=== PATIENT | male | born 1965 | race Caucasian/White ===

== ENCOUNTER 2020-09-19 15:34 | Outpatient (REF) | payer MEDICAID, SELFPAY | END 2020-09-19 15:35 | disposition home or self-care (01) | LOC: HO.LNP 15:34 | PROVIDERS: Visit Provider Surgery | DX: E11.621 Type 2 diabetes mellitus with foot ulcer (principal) | CPT/HCPCS: 87071; 87077; 87147; 87186; 87205 ==

== ENCOUNTER 2020-10-01 09:24 | Outpatient (REF) | payer MEDICAID, SELFPAY ==
--- NOTE | 2020-10-01 | PFT_ITS ---
INDICATION: Shortness of breath. SPIROMETRY: The FEV1 to FVC 72% with an FEV1 of 2.55 L, which is 69% predicted, and an FVC of 3.53 L, which is 74% predicted. No significant response to bronchodilators. The patient does have significant small airways disease. LUNG VOLUMES: Total lung capacity 104% predicted with a residual volume of 167% predicted, and an expiratory reserve volume of 30% predicted. DIFFUSION CAPACITY: DLCO 86% predicted. COMPARISONS: None. INTERPRETATION: There appears to be reversible obstructive ventilatory defect consistent with diagnosis of asthma. The patient also has significant small airways disease, which may be also due to underlying asthma. There is a moderate decrease in maximum voluntary ventilation secondary to deconditioning and also worsening dynamic inspiratory capacity. Lung volumes do demonstrate significant air trapping due to the small airways disease and the obstructive airways. The patient also has a decrease in the expiratory reserve volume secondary to an elevated BMI. Diffusion capacity is within normal limits. At this point, the patient needs to be aggressively treated for asthma. Pulmonary consultation may be warranted. MD SEVERIANO Hartley/SUSANNA / [phone]
== END 2020-10-01 09:25 | disposition home or self-care (01) ==
LOC: HO.RESP 09:24
PROVIDERS: PCP Internal Medicine; Visit Provider Internal Medicine
DX: R06.02 Shortness of breath (principal)
CPT/HCPCS: 94060; 94727; 94729

== ENCOUNTER 2020-11-14 10:02 | Outpatient (REF) | payer MEDICAID, SELFPAY ==
--- NOTE | ~2020-11-14 | XR_ITS ---
EXAMINATION: XR KNEE, RIGHT XR FOOT, RIGHT CLINICAL INFORMATION: Right knee pain with limited range of motion. Right foot wound. COMPARISON: Right knee radiographs dated 05/11/2019. Right ankle radiographs dated 05/11/2019. TECHNIQUE: AP, tunnel, lateral, and sunrise views of the right knee. AP, lateral, and oblique views of the right foot. FINDINGS: RIGHT KNEE: No acute fracture or dislocation. No joint space narrowing. Tiny patellofemoral marginal osteophytes, unchanged. No lytic or blastic osseous lesion. No abnormal soft tissue calcification. No significant joint effusion. RIGHT FOOT: Soft tissue wound with associated dressing overlying the lateral aspect of the 5th metatarsophalangeal joint. No soft tissue calcification or radiopaque foreign body. Deformity of the 5th proximal phalanx, likely representing a remote fracture. No acute fracture or dislocation. Mild joint space narrowing with small marginal osteophytes at the 1st metatarsophalangeal joint. Plantar calcaneal spur. Degenerative spurring at the dorsal aspect of the talar head. Probable bone island redemonstrated within the distal tibia. XR/XR foot RT min 3V IMPRESSION: Right knee: Mild patellofemoral degenerative arthritis, unchanged. Right foot: Soft tissue wound over the lateral aspect of the 5th metatarsophalangeal joint without soft tissue calcification or radiopaque foreign body. No adjacent osseous erosion or periosteal reaction. Deformity of the 5th proximal phalanx, likely representing a remote fracture. Mild degenerative arthritis at the 1st metatarsophalangeal joint. Plantar calcaneal spur.
--- NOTE | ~2020-11-14 | XR_ITS ---
EXAMINATION: XR KNEE, RIGHT XR FOOT, RIGHT CLINICAL INFORMATION: Right knee pain with limited range of motion. Right foot wound. COMPARISON: Right knee radiographs dated 05/11/2019. Right ankle radiographs dated 05/11/2019. TECHNIQUE: AP, tunnel, lateral, and sunrise views of the right knee. AP, lateral, and oblique views of the right foot. FINDINGS: RIGHT KNEE: No acute fracture or dislocation. No joint space narrowing. Tiny patellofemoral marginal osteophytes, unchanged. No lytic or blastic osseous lesion. No abnormal soft tissue calcification. No significant joint effusion. RIGHT FOOT: Soft tissue wound with associated dressing overlying the lateral aspect of the 5th metatarsophalangeal joint. No soft tissue calcification or radiopaque foreign body. Deformity of the 5th proximal phalanx, likely representing a remote fracture. No acute fracture or dislocation. Mild joint space narrowing with small marginal osteophytes at the 1st metatarsophalangeal joint. Plantar calcaneal spur. Degenerative spurring at the dorsal aspect of the talar head. Probable bone island redemonstrated within the distal tibia. XR/XR knee RT 4V IMPRESSION: Right knee: Mild patellofemoral degenerative arthritis, unchanged. Right foot: Soft tissue wound over the lateral aspect of the 5th metatarsophalangeal joint without soft tissue calcification or radiopaque foreign body. No adjacent osseous erosion or periosteal reaction. Deformity of the 5th proximal phalanx, likely representing a remote fracture. Mild degenerative arthritis at the 1st metatarsophalangeal joint. Plantar calcaneal spur.
== END 2020-11-14 10:03 | disposition home or self-care (01) ==
LOC: HO.XRAY 10:02
PROVIDERS: PCP Internal Medicine; Visit Provider Surgery
DX: M25.561 Pain in right knee (principal); S90.921D Unspecified superficial injury of right foot, subsequent encounter
CPT/HCPCS: 73564; 73630

== ENCOUNTER 2020-11-28 08:32 | Outpatient (REF) | payer MEDICAID, SELFPAY ==
[2020-11-28 09:00] LABS: Hematocrit 42.3 % (42-52); Hemoglobin 14.8 g/dl (14.0-18.0); Mean Corpuscular Hemoglobin 32.6 pg (27.0-33.0); Mean Corpuscular Volume 93.2 fL (80-98); Mean Platelet Volume 10.7 fL (9.4-12.4); Platelet Count 208 X10*3/uL (160-400); Red Blood Count 4.54 X10*6/uL (4.60-5.80); Red Cell Distribution Width 11.8 % (11.0-16.0); White Blood Count 7.9 X10*3/uL (4.8-10.8)
[2020-11-28 09:13] LABS: Estimated Average Glucose 235 mg/dL; Hemoglobin A1c % 9.8 %
[2020-11-28 10:40] LABS: Thyroid Stimulating Hormone 1.95 uIU/mL (0.32-4.0)
[2020-11-28 10:42] LABS: Creatinine Urine 98.19 mg/dL; Microalbum/Creatinine Ratio Ur 36.6 ug/mg cr
[2020-11-28 10:51] LABS: Alanine Aminotransferase 18 U/L (0-40); Albumin Level 4.2 g/dL (3.5-5.0); Alkaline Phosphatase 103 U/L (39-117); Anion Gap 15 (12-20); Aspartate Amino Transferase 13 U/L (5-37); Bilirubin Total 0.4 mg/dL (0.0-1.0); Blood Urea Nitrogen 14 mg/dL (9-16); Calcium 9.2 mg/dL (8.4-10.2); Carbon Dioxide 28 mmol/L (22-29); Chloride 98 mmol/L (96-108); Cholesterol 169 mg/dL; Estimated Glomerular Filt Rate > 60; Glucose Random 311 mg/dL (60-115); HDL Cholesterol 35 mg/dL; LDL Cholesterol Calculated 111 mg/dl; Potassium 4.7 mmol/L (3.3-5.1); Sodium 136 mmol/L (135-145); Total Protein 7.3 g/dL (6.5-8.0); Triglycerides 118 mg/dL
== END 2020-11-28 08:33 | disposition home or self-care (01) ==
LOC: HO.LAB 08:32
PROVIDERS: PCP Internal Medicine; Visit Provider Internal Medicine
DX: E11.65 Type 2 diabetes mellitus with hyperglycemia (principal); R06.02 Shortness of breath
CPT/HCPCS: 36415; 80053; 80061; 82043; 83036; 84443; 85027

== ENCOUNTER 2021-05-12 12:07 | Emergency (ER) | payer MEDICAID, SELFPAY ==
--- NOTE | ~2021-05-12 | US_ITS ---
EXAMINATION: US VENOUS ULTRASOUND WITH DOPPLER LOWER EXTREMITY, RIGHT CLINICAL INFORMATION: Right upper thigh rash. Pain right leg. COMPARISON: None TECHNIQUE: Ultrasound of the deep veins is performed from the hip to the calf with compression sonography and color and pulse Doppler assessment. Spectral analysis with color-flow imaging is performed. FINDINGS: There is normal venous compression and respiratory variation and augmented flow. The visualized common femoral vein, superficial femoral vein, profunda femoral vein, popliteal vein, and the trifurcation region shows no evidence of deep venous thrombosis. There is no significant popliteal fossa cyst. The peroneal and posterior tibial veins were limited in visualization. There are multiple lymph nodes are right groin with the largest lymph node measuring 3.7 x 1.3 x 4.4 cm. Patient has mild skin redness mid and distal medial thigh. History of cellulitis. If the patient's symptoms persist, followup ultrasound in 5 days 7 days might be of value to exclude proximal propagation from a non-visualized calf vein. US/US venous duplex LE RT IMPRESSION: No DVT demonstrated in the right lower extremity. Small lymph nodes in the right groin area.
[2021-05-12 12:23] VITALS: BP 134/80; BP 156/88; PULSE 100; PULSE 88; RESP 16; TEMP 35.9; O2SAT 94; O2SAT 95; BMI 36.6
--- NOTE | 2021-05-12 12:44 | ED_ITS ---
HPI - General Adult General Chief complaint: Extremity Injury, Lower Stated complaint: right upper thigh rash Time Seen by Provider: 05/12/21 12:23 Source: patient Mode of arrival: EMS Limitations: no limitations History of Present Illness HPI narrative: 65-year-old male past medical history of insulin-dependent diabetes, hypertension, hyperlipidemia, cellulitis, asthma, with nonhealing wound ulcers who is followed by the wound clinic weekly, presents for right thigh redness and swelling that started 2 days ago. Patient reports he had a similar rash on his right lower calf last week, for which he was put on a moxicillin and the rash resolved. States the redness on his right thigh looks like the cellulitis he had on his right calf. Patient had some amoxicillin left over from prior treatment of cellulitis, he took two 1000 mg amoxicillin yesterday, and states the rash is less painful today, and less hard to the touch today. Patient states his visiting nurse today wanted him seen in the emergency room for an ultrasound for DVT rule out in right leg. Patient has had no fevers, no shortness of breath, chest pain, no pleuritic pain, no nausea, vomiting, or abdominal pain. Patient states that he has chronically right calf swelling, and that his right calf is larger in circumference than his left calf chronically. . Onset (ago): day(s) (2) Location: lower extremity Radiation: non-radiation Severity: moderate Pain Consistency: constant Relieving factors: medication Associated symptoms: denies other symptoms Treatments prior to arrival: other (antibiotics from home) Related Data Previous Rx's Medication Instructions Recorded cephalexin 500 mg capsule 500 mg PO QID 10 Days #40 cap 05/12/21 Allergies Allergy/AdvReac Type Severity Reaction Status Date / Time bee stings Allergy Unknown Uncoded 05/30/19 00:00 Erythromycin Allergy Unknown Uncoded 05/30/19 00:00 IVP dye Allergy Unknown Uncoded 05/30/19 00:00 seasonal Allergy Unknown Uncoded 05/30/19 00:00 Review of Systems Constitutional: Constitutional: Denies body ache(s), Denies chills, Reports excessive sweating, Denies fatigue, Denies fever(s), Denies weakness and Denies weight gain Eyes: Eyes: Denies blurry vision and Denies eye pain ENT: Denies vertigo and Denies dizziness Cardiovascular: Cardiovascular: Denies chest pain, Denies syncope, Denies pedal edema, Denies claudication, Reports leg edema, Denies lightheadedness, Denies palpitations, Denies dyspnea, Denies dyspnea on exertion and Denies orthopnea Respiratory: Respiratory: Denies chest congestion, Denies cough, Denies dyspnea and Denies dyspnea on exertion Gastrointestinal: Gastrointestinal: Denies abdominal pain, Denies melena, Denies hematochezia, Denies coffee ground emesis, Denies constipation, Denies diarrhea, Denies nausea and Denies vomiting Musculoskeletal: Musculoskeletal: Denies back pain, Denies muscle cramps, Denies muscle weakness, Denies numbness and Denies tingling Integumentary/Breasts: Skin/Breast: Reports rash and Reports skin pain Neurologic: Denies vertigo, Denies dizziness, Denies syncope, Denies numbness, Denies radicular pain, Denies Sensory deficit (Neuro), Denies tingling and Denies weakness Psychiatric: Psychiatric: Denies anxiety and Denies depression Endocrine: Endocrine: Reports excessive sweating, Denies fatigue, Denies heat intolerance, Denies polyphagia, Denies polydipsia and Denies palpitations [facility], [facility] Past Medical History Medical History Asthma Cellulitis High cholesterol HTN (hypertension) IDDM (insulin dependent diabetes mellitus) Kidney stones Surgical History (Updated 05/12/21 @ 12:29 by Lisa Conteh) History of lithotripsy Social History Social History Advance Directives: No Advance Directives Information Provided: No Physical Exam Vital Signs: Vital Signs: Last Vital Signs Temp 96.6 F L 05/12/21 12:23 Pulse 88 05/12/21 12:23 Resp 16 05/12/21 12:23 BP 134/80 05/12/21 12:23 Pulse Ox 95 05/12/21 12:23 Body Mass Index 36.6 Const: General: no acute distress, alert, awake and ill appearing chronically Nutritional Appearance: obese morbidly obese Orientation/consciousness: patient oriented x3 Limitations: no limitations HENMT: Head: Yes normal to inspection and Yes atraumatic Eyes: Conjunctivae: conjunctivae normal Sclerae: sclerae normal Pupils: Equal, round and reactive pupils present EOM: EOMs intact bilaterally Neck: Neck: Yes full ROM, Yes no meningeal signs, Yes trachea midline and Yes supple Resp: Effort & Inspection: normal respiratory effort, able to speak in complete sentences, no audible wheezes and no cough Auscultation: clear to auscultation bilaterally, no crackles, no rales, no rhonchi and no wheezes Cardio: Rate: regular rate Rhythm: regular rhythm Heart sounds: S1 normal heart sound present and S2 normal heart sound present Skin: General skin exam: induration Rashes: rashes noted maculopapular rash right proximal upper leg Neuro: General: patient oriented x3, tone normal, moves all extremities, no meningeal signs and no focal motor deficits Cranial nerves: Yes Equal, round and reactive pupils present Motor exam (neuro): 5/5 motor strength present throughout Sensory Exam: No Sensory deficit (Neuro) Extrem: Other: Patient has stockinet socks on his calves and dressed wounds on his heels on bilateral lower extremities. Hemosiderin deposits bilateral calves and into right and left thighs. There is a confluent maculopapular rash on patient's medial right thigh measuring 17 cm by 20 cm. It is well demarcated, and is non-blanching. Mildly indurated, but all of pt's leg is mildly indurated. Mild warmth, not hot. Right calf measures 44.5 cm in circumference, left calf measures 43 cm in circumference. General: Yes full ROM, No calf tenderness and No edema Psych: Appearance: disheveled Affect: Animated affect present Attitude: cooperative Course Course Course Narrative: Pt's temporal temperature was 96.8F, but his oral temperature is 98.8F. Pt does not have SIRS. This is a 55-year-old male is insulin-dependent diabetic who has recently cellulitis right calf now presents for rash right medial thigh. Patient is up by wound clinic weekly, and presents with dressed diabetic wounds with stockingnet dressings on his bilateral calves There is a confluent maculopapular rash on patient's medial right thigh measuring 17 cm by 20 cm. It is well demarcated, and is non-blanching. Mildly indurated, but all of pt's leg is mildly indurated. Mild warmth, not hot. Right calf measures 44.5 cm in circumference, left calf measures 43 cm in circumference. Ultrasound shows no DVT. Will treat patient with cephalexin, family service counselor follow-up with PCP in 3 days Discharge Plan Discharge Clinical Impression: Cellulitis Qualifiers: Site of cellulitis: extremity Site of cellulitis of extremity: lower extremity Laterality: right Qualified Code(s): L03.115 - Cellulitis of right lower limb Patient Disposition: Home, Self-Care Instructions: Cellulitis (ED) Additional Instructions: Please take your Keflex as prescribed. Please keep your wound care appointment for . Please call your PCP and make a follow-up appointment to have your cellulitis checked on . Please return to the emergency room if you have fevers, nausea or vomiting, worsening pain, or any other new or concerning symptoms Prescriptions: New cephalexin 500 mg capsule 500 mg PO QID 10 Days Qty: 40 RF: 0 Interventions: ED Discharge Assessment Last Done: 05/12/21 15:09 Discharge Date/Time: 05/12/21 15:12
[2021-05-12] MEDS: cephALEXin 500 MG CAPSULE PO (15:02)
== END 2021-05-12 15:12 | disposition home or self-care (01) ==
PROVIDERS: Emergency Provider Emergency Medicine; PCP Internal Medicine
DX: L03.115 Cellulitis of right lower limb (principal); R60.0 Localized edema; E11.9 Type 2 diabetes mellitus without complications; I10 Essential (primary) hypertension; Z79.4 Long term (current) use of insulin; Z79.899 Other long term (current) drug therapy
CPT/HCPCS: 93971; 99283; 99284

== ENCOUNTER 2022-01-01 11:37 | Emergency (ER) | payer MEDICAID, SELFPAY ==
--- NOTE | ~2022-01-01 | US_ITS ---
EXAMINATION: US VENOUS ULTRASOUND WITH DOPPLER LOWER EXTREMITY, LEFT CLINICAL INFORMATION: Swelling and pain COMPARISON: None TECHNIQUE: Ultrasound of the deep veins is performed from the hip to the calf with compression sonography and color and pulse Doppler assessment. Spectral analysis with color-flow imaging is performed. FINDINGS: There is normal venous compression and respiratory variation and augmented flow. The visualized common femoral vein, superficial femoral vein, profunda femoral vein, popliteal vein, and the trifurcation region shows no evidence of deep venous thrombosis. There is no significant popliteal fossa cyst. There are small lymph nodes seen in the left groin with largest measuring 3.4 x 1.3 x 2.9 cm. If the patient's symptoms persist, followup ultrasound in 5 days 7 days might be of value to exclude proximal propagation from a non-visualized calf vein. US/US venous duplex LE IMPRESSION: No DVT demonstrated in the left lower extremity. There are small lymph nodes seen in the left groin with the largest measuring 3.4 x 1.3 x 2.9 cm.
[2022-01-01 11:42] VITALS: BP 151/90; PULSE 88; RESP 20; TEMP 36.6; O2SAT 95; BMI 38.5
--- NOTE | 2022-01-01 13:44 | ED.GENADULT ---
HPI - General Adult General Chief complaint: General Medical Stated complaint: Cellulitis Time Seen by Provider: 01/01/22 13:32 Source: patient Mode of arrival: ambulatory Limitations: no limitations History of Present Illness HPI narrative: 56 yo male with history of DM on insulin, HTN, HLD, asthma, chronic LE wounds who presents to the ER from the wound clinic with open wounds to his left lower extremity. Patient states 9 days ago he fell and sustained some new abrasions to the left lower leg. The area started swelling and blistering. He reports the blisters popped yesterday and were draining clear fluid. He states yesterday his entire lower leg was red, hot, swollen and the redness extended to his upper leg. It after the blisters popped the swelling and redness has improved. He has been taking Aleve at home for his pain. He is not currently on antibiotics for cellulitis. He denies any fever or chills. MD complaint: left lower extremity cellulitis Onset (ago): day(s) (9) Location: left and lower extremity Radiation: proximal Severity: moderate Severity scale (1-10): 6 Quality: aching Pain Consistency: constant Relieving factors: immobilization Exacerbating factors: movement Associated symptoms: denies other symptoms Treatments prior to arrival: NSAID Related Data Home Medications Medication Instructions Recorded Confirmed albuterol sulfate 90 mcg/actuation 2 puff PO Q4-6H PRN 01/01/22 01/01/22 aerosol inhaler (ProAir HFA) insulin aspart U-100 100 unit/mL 15 - 18 unit SUBCUT TIDAC 01/01/22 01/01/22 (3 mL) subcutaneous pen insulin glargine 100 unit/mL (3 60 unit SUBCUT BEDTIME 01/01/22 01/01/22 mL) subcutaneous pen (Lantus Solostar U-100 Insulin) lisinopril 10 1 tab PO DAILY 01/01/22 01/01/22 mg-hydrochlorothiazide 12.5 mg tablet omeprazole 20 mg capsule,delayed 1 cap PO DAILY 01/01/22 01/01/22 release simvastatin 40 mg tablet 1 tab PO BEDTIME 01/01/22 01/01/22 Previous Rx's Medication Instructions Recorded cephalexin 500 mg capsule 500 mg PO Q6H 10 Days #40 cap 01/01/22 doxycycline hyclate 100 mg tablet 100 mg PO BID #20 tab 01/01/22 Allergies Allergy/AdvReac Type Severity Reaction Status Date / Time bee stings Allergy Severe Anaphylaxis Uncoded 01/01/22 11:42 IVP dye Allergy Severe Shortness Uncoded 01/01/22 11:42 of Breath Erythromycin Allergy Intermediate Rash Uncoded 01/01/22 11:42 seasonal Allergy Intermediate Nasal Uncoded 01/01/22 11:42 congestion Review of Systems Review of Systems: Constitutional: No Fever, No Chills ENT/Mouth: No sore throat, No Rhinorrhea, No Swallowing Difficulty Eyes: No Eye Pain, No Swelling, No Redness Cardiovascular: No Chest Pain, No SOB, No Orthopnea, + Edema Respiratory: No Cough, No Sputum, No Wheezing, No dyspnea Gastrointestinal: No Nausea, No Vomiting, No Diarrhea, No abdominal Pain, No Hematochezia, No Melena Genitourinary: No Dysuria, No Urinary Frequency, No Hematuria Musculoskeletal: No joint pain, No Myalgias Skin: +Skin Lesions, No rash Neuro: No Weakness, No Numbness, No Dizziness, No Headache Psych: No Anxiety/Panic, No Depression Heme/Lymph: No Bruising, No Lymphadenopathy Endocrine: No Polyuria, No Polydipsia PMFSH Past Medical History Medical History Asthma Cellulitis High cholesterol HTN (hypertension) IDDM (insulin dependent diabetes mellitus) Kidney stones Surgical History History of lithotripsy Social History Social History Advance Directives: No Advance Directives Information Provided: No Physical Exam ED Vital Signs: Vital Signs - 24 hr 01/01/22 11:42 01/01/22 15:23 Temperature 97.8 F 97.9 F Pulse Rate 88 78 Respiratory Rate 20 12 Blood Pressure 151/90 H 111/72 Pulse Oximetry 95 92 BMI result Body Mass Index 38.5 Appearance: Alert. Oriented X3. No acute distress. Eyes: Pupils equal, round and reactive to light. ENT: Pharynx normal. Neck: Normal inspection. Neck supple. CVS: Normal heart rate and rhythm. Pulses normal. Respiratory: No respiratory distress. Breath sounds normal. Abdomen: Obese, Soft and nontender. +BS x4 Skin: Skin warm and dry. Normal skin color. Normal skin turgor. No rashes. Extremities: right lower extremity with 1+ LE and hyperpigmented skin consistent with chronic venous stasis. left lower extremity swollen with 3+ pitting edema, scattered superficial wounds on anterior lower leg with oozing of clear liquid, diffuse erythema and warmth, well demarcated just below the knee. pitting edema extends to upper thigh. Neuro: Oriented X 3. No motor deficit. No sensory deficit. Ambulates with cane. Course Course Course Narrative: 56-year-old diabetic male presenting to the ER with left lower extremity cellulitis. He had recent trauma and superficial wounds to the area that developed bulla and popped yesterday. He was sent in from the wound clinic for concern of infection. His left lower extremity has evidence of cellulitis with superficial wounds. He has no systemic signs of infection including fever or chills. Will check his basic lab workup, inflammatory markers and lower extremity Doppler to rule out DVT. He is not currently on oral antibiotic therapy and would like to avoid admission if possible. Reevaluation(s) Reevaluation #1: No leukocytosis. CRP 5 & ESR 25. Normal lactic. Lower extremity Dopplers negative for DVT. He was given a dose of Rocephin empirically. At this time it is reasonable to discharge patient on both oral doxycycline and Keflex with plan to follow-up in the wound clinic early next week. Wounds were dressed with Xeroform, nonstick dressings, Kerlex and area was marked with skin marker. Return precautions were discussed. Medical Decision Making Lab Data Result diagrams: 01/01/22 14:13 01/01/22 14:13 Labs: Lab Results 01/01/22 01/01/22 01/01/22 Range/Units 14:12 14:12 14:13 WBC 9.4 (4.8-10.8) X10*3/uL RBC 4.24 L (4.60-5.80) X10*6/uL Hgb 14.4 (14.0-18.0) g/dl Hct 41.3 L (42.0-52.0) % MCV 97.4 (80.0-98.0) fL MCH 34.0 H (27.0-33.0) pg MCHC 34.9 (31.0-36.0) g/dl RDW 12.5 (11.0-16.0) % Plt Count 207 (160-400) X10*3/uL MPV 10.5 (9.4-12.4) fL Immature Gran % (Auto) 0.5 H (0.0-0.4) % Neut % (Auto) 66.8 (45-73) % Lymph % (Auto) 16.8 L (20-40) % Randall % (Auto) 11.6 H (2-11) % Eos % (Auto) 3.9 (0-4) % Baso % (Auto) 0.4 (0-2) % Lymph # (Auto) 1.6 (1.2-4.9) X10*3/uL Randall # (Auto) 1.1 (0.1-1.2) X10*3/uL Eos # (Auto) 0.4 (0.0-0.4) X10*3/uL Baso # (Auto) 0.0 (0.0-0.2) X10*3/uL Abs Immat Gran (auto) 0.05 H (0.00-0.03) X10*3/uL Absolute Neuts (auto) 6.3 (2.0-8.3) x10*3/uL Absolute Nucleated RBC 0.000 (0.0-0.012) X10*3/uL Nucleated RBC % (auto) 0.0 (0.0-0.2) /100WBC ESR (0-15) MM/HR PT (9.9-13.0) SEC INR (0.9-1.1) APTT (24.1-38.0) SEC Sodium (135-145) mmol/L Potassium (3.3-5.1) mmol/L Chloride (96-108) mmol/L Carbon Dioxide (22-29) mmol/L Anion Gap (12-20) BUN (9-16) mg/dL Creatinine (0.5-1.4) mg/dL Estim Creat Clear Calc Estimated GFR Random Glucose (60-115) mg/dL Lactic Acid 1.4 (0.5-2.0) mmol/L Calcium (8.4-10.2) mg/dL Magnesium (1.6-2.6) mg/dL Total Bilirubin (0.0-1.0) mg/dL Direct Bilirubin (0.0-0.5) mg/dL AST (5-37) U/L ALT (0-40) U/L Alkaline Phosphatase (39-117) U/L C-Reactive Protein (< or = 0.50) mg/dL Total Protein (6.5-8.0) g/dL Albumin (3.5-5.0) g/dL Urine Color YELLOW Urine Appearance CLEAR Urine pH 6.5 (5.0-8.0) Ur Specific [place] <= 1.005 (1.005-1.025) Urine Protein NEG (NEG-TRACE) MG/DL Urine Glucose (UA) NEG (NEG) MG/DL Urine Ketones NEG (NEG) MG/DL Urine Blood NEG (NEG) Urine Nitrite NEG (NEG) Ur Leukocyte Esterase NEG (NEG) COVID-19 ([facility]) (Negative) COVID-19 Clin Com 01/01/22 01/01/22 01/01/22 Range/Units 14:13 14:13 14:13 WBC (4.8-10.8) X10*3/uL RBC (4.60-5.80) X10*6/uL Hgb (14.0-18.0) g/dl Hct (42.0-52.0) % MCV (80.0-98.0) fL MCH (27.0-33.0) pg MCHC (31.0-36.0) g/dl RDW (11.0-16.0) % Plt Count (160-400) X10*3/uL MPV (9.4-12.4) fL Immature Gran % (Auto) (0.0-0.4) % Neut % (Auto) (45-73) % Lymph % (Auto) (20-40) % Randall % (Auto) (2-11) % Eos % (Auto) (0-4) % Baso % (Auto) (0-2) % Lymph # (Auto) (1.2-4.9) X10*3/uL Randall # (Auto) (0.1-1.2) X10*3/uL Eos # (Auto) (0.0-0.4) X10*3/uL Baso # (Auto) (0.0-0.2) X10*3/uL Abs Immat Gran (auto) (0.00-0.03) X10*3/uL Absolute Neuts (auto) (2.0-8.3) x10*3/uL Absolute Nucleated RBC (0.0-0.012) X10*3/uL Nucleated RBC % (auto) (0.0-0.2) /100WBC ESR 25 H (0-15) MM/HR PT 12.7 (9.9-13.0) SEC INR 1.1 (0.9-1.1) APTT 36.4 (24.1-38.0) SEC Sodium 135 (135-145) mmol/L Potassium 4.2 (3.3-5.1) mmol/L Chloride 97 (96-108) mmol/L Carbon Dioxide 30 H (22-29) mmol/L Anion Gap 12 (12-20) BUN 8 L (9-16) mg/dL Creatinine 0.66 (0.5-1.4) mg/dL Estim Creat Clear Calc 163.5 Estimated GFR > 60 Random Glucose 123 H D (60-115) mg/dL Lactic Acid (0.5-2.0) mmol/L Calcium 9.0 (8.4-10.2) mg/dL Magnesium 1.9 (1.6-2.6) mg/dL Total Bilirubin 0.7 (0.0-1.0) mg/dL Direct Bilirubin 0.4 (0.0-0.5) mg/dL AST 33 D (5-37) U/L ALT 37 (0-40) U/L Alkaline Phosphatase 114 (39-117) U/L C-Reactive Protein 5.38 H (< or = 0.50) mg/dL Total Protein 7.5 (6.5-8.0) g/dL Albumin 3.8 (3.5-5.0) g/dL Urine Color Urine Appearance Urine pH (5.0-8.0) Ur Specific [place] (1.005-1.025) Urine Protein (NEG-TRACE) MG/DL Urine Glucose (UA) (NEG) MG/DL Urine Ketones (NEG) MG/DL Urine Blood (NEG) Urine Nitrite (NEG) Ur Leukocyte Esterase (NEG) COVID-19 ([facility]) (Negative) COVID-19 Clin Com 01/01/22 Range/Units 14:14 WBC (4.8-10.8) X10*3/uL RBC (4.60-5.80) X10*6/uL Hgb (14.0-18.0) g/dl Hct (42.0-52.0) % MCV (80.0-98.0) fL MCH (27.0-33.0) pg MCHC (31.0-36.0) g/dl RDW (11.0-16.0) % Plt Count (160-400) X10*3/uL MPV (9.4-12.4) fL Immature Gran % (Auto) (0.0-0.4) % Neut % (Auto) (45-73) % Lymph % (Auto) (20-40) % Randall % (Auto) (2-11) % Eos % (Auto) (0-4) % Baso % (Auto) (0-2) % Lymph # (Auto) (1.2-4.9) X10*3/uL Randall # (Auto) (0.1-1.2) X10*3/uL Eos # (Auto) (0.0-0.4) X10*3/uL Baso # (Auto) (0.0-0.2) X10*3/uL Abs Immat Gran (auto) (0.00-0.03) X10*3/uL Absolute Neuts (auto) (2.0-8.3) x10*3/uL Absolute Nucleated RBC (0.0-0.012) X10*3/uL Nucleated RBC % (auto) (0.0-0.2) /100WBC ESR (0-15) MM/HR PT (9.9-13.0) SEC INR (0.9-1.1) APTT (24.1-38.0) SEC Sodium (135-145) mmol/L Potassium (3.3-5.1) mmol/L Chloride (96-108) mmol/L Carbon Dioxide (22-29) mmol/L Anion Gap (12-20) BUN (9-16) mg/dL Creatinine (0.5-1.4) mg/dL Estim Creat Clear Calc Estimated GFR Random Glucose (60-115) mg/dL Lactic Acid (0.5-2.0) mmol/L Calcium (8.4-10.2) mg/dL Magnesium (1.6-2.6) mg/dL Total Bilirubin (0.0-1.0) mg/dL Direct Bilirubin (0.0-0.5) mg/dL AST (5-37) U/L ALT (0-40) U/L Alkaline Phosphatase (39-117) U/L C-Reactive Protein (< or = 0.50) mg/dL Total Protein (6.5-8.0) g/dL Albumin (3.5-5.0) g/dL Urine Color Urine Appearance Urine pH (5.0-8.0) Ur Specific [place] (1.005-1.025) Urine Protein (NEG-TRACE) MG/DL Urine Glucose (UA) (NEG) MG/DL Urine Ketones (NEG) MG/DL Urine Blood (NEG) Urine Nitrite (NEG) Ur Leukocyte Esterase (NEG) COVID-19 ([facility]) Negative (Negative) COVID-19 Clin Com See Note Critical Care Time Critical Care Time Critical Care Time: No Discharge Plan Discharge Clinical Impression: Cellulitis Patient Disposition: Home, Self-Care Instructions: Cellulitis (DC) Additional Instructions: Take both of the prescribed antibiotics, complete the entire course. Follow-up with the wound clinic next week. If you develop worsening signs or symptoms of infection including worsening redness, pain, swelling, drainage, development of fevers call your doctor or come back to the ER for further evaluation. Prescriptions: New doxycycline hyclate 100 mg tablet 100 mg PO BID Qty: 20 0RF cephalexin 500 mg capsule 500 mg PO Q6H 10 Days Qty: 40 0RF No Action simvastatin 40 mg tablet 1 tab PO BEDTIME 0RF omeprazole 20 mg capsule,delayed release(DR/EC) 1 cap PO DAILY 0RF lisinopril-hydrochlorothiazide 10-12.5 mg tablet 1 tab PO DAILY 0RF insulin aspart U-100 100 unit/mL (3 mL) insulin pen 15 - 18 unit subcut TIDAC 0RF Lantus Solostar U-100 Insulin 100 unit/mL (3 mL) insulin pen 60 unit subcut BEDTIME 0RF albuterol sulfate [ProAir HFA] 90 mcg/actuation HFA aerosol inhaler 2 puff PO Q4-6H PRN (Reason: Wheezing) 0RF Referrals: [facility] [place] [facility] [Outside] - 2 days ( Left lower extremity cellulitis)
--- NOTE | 2022-01-01 14:11 | PHA.MEDREC ---
Pharmacy Consult ? Medication Reconciliation Pharmacy has completed the medication reconciliation. Patient does not take flovent anymore. He also endorses that he is supposed to be on zocor but thought it was a blood thinner from what he read online and stopped taking it. Thanks Markus
[2022-01-01 14:20] LABS: MANUAL DIFF FLAG NO
[2022-01-01 14:24] LABS: Appearance Urine CLEAR; Color Urine YELLOW; Glucose Urine UA NEG (NEG); Leukocyte Esterase Urine NEG (NEG); Nitrite Urine NEG (NEG); PH 6.5 (5.0-8.0); Specific Gravity - Urine <= 1.005 (1.005-1.025); Urine Blood NEG (NEG); Urine Ketones NEG (NEG); Urine Protein NEG (NEG-TRACE)
[2022-01-01 14:24] LABS: Basophils Percent Auto 0.4 % (0-2); Eosinophils Absolute Auto 0.4 X10*3/uL (0.0-0.4); Eosinophils Percent Auto 3.9 % (0-4); Hematocrit 41.3 % (42.0-52.0); Hemoglobin 14.4 g/dl (14.0-18.0); Imm Gran Abs Auto 0.05 X10*3/uL (0.00-0.03); Imm Gran Pct Auto 0.5 % (0.0-0.4); Lymphocytes Absolute Auto 1.6 X10*3/uL (1.2-4.9); Lymphocytes Percent Auto 16.8 % (20-40); Mean Corpuscular HGB Conc 34.9 g/dl (31.0-36.0); Mean Corpuscular Volume 97.4 fL (80.0-98.0); Mean Platelet Volume 10.5 fL (9.4-12.4); Monocytes Absolute Auto 1.1 X10*3/uL (0.1-1.2); Monocytes Percent Auto 11.6 % (2-11); Neutrophils Absolute Auto 6.3 x10*3/uL (2.0-8.3); Neutrophils Percent Auto 66.8 % (45-73); Platelet Count 207 X10*3/uL (160-400); Red Blood Count 4.24 X10*6/uL (4.60-5.80); Red Cell Distribution Width 12.5 % (11.0-16.0); White Blood Count 9.4 X10*3/uL (4.8-10.8)
[2022-01-01 14:33] LABS: Lactic Acid 1.4 mmol/L (0.5-2.0)
[2022-01-01 14:35] LABS: INTERNATIONAL NORM RATIO 1.1 (0.9-1.1); Prothrombin Time 12.7 SEC (9.9-13.0)
[2022-01-01 14:36] LABS: COVID-19 Test Negative (Negative)
[2022-01-01 14:38] LABS: Partial Thromboplastin Time 36.4 SEC (24.1-38.0)
[2022-01-01 14:44] LABS: Alanine Aminotransferase 37 U/L (0-40); Albumin Level 3.8 g/dL (3.5-5.0); Alkaline Phosphatase 114 U/L (39-117); Anion Gap 12 (12-20); Aspartate Amino Transferase 33 U/L (5-37); Bilirubin Direct 0.4 mg/dL (0.0-0.5); Bilirubin Total 0.7 mg/dL (0.0-1.0); Blood Urea Nitrogen 8 mg/dL (9-16); C Reactive Protein 5.38 mg/dL (< or = 0.50); Carbon Dioxide 30 mmol/L (22-29); Chloride 97 mmol/L (96-108); Creatinine Clr Calc Pharmacy 163.5; Estimated Glomerular Filt Rate > 60; Glucose Random 123 mg/dL (60-115); Magnesium 1.9 mg/dL (1.6-2.6); Potassium 4.2 mmol/L (3.3-5.1); Sodium 135 mmol/L (135-145); Total Protein 7.5 g/dL (6.5-8.0)
[2022-01-01] MEDS: cefTRIAXone sodium 1 GM in 0.9 % Sodium Chloride 50 ML IV (15:04)
[2022-01-01 15:22] LABS: Erythrocyte Sedimentation Rate 25 MM/HR (0-15)
[2022-01-01 15:23] VITALS: BP 111/72; PULSE 78; RESP 12; TEMP 36.6; O2SAT 92
== END 2022-01-01 16:21 | disposition home or self-care (01) ==
PROVIDERS: Physician Assistant; Emergency Provider Emergency Medicine; PCP Internal Medicine
DX: L03.116 Cellulitis of left lower limb (principal); M79.662 Pain in left lower leg; R60.0 Localized edema; S80.922A Unspecified superficial injury of left lower leg, initial encounter; X58.XXXA Exposure to other specified factors, initial encounter; Z20.822 Contact with and (suspected) exposure to COVID-19; I10 Essential (primary) hypertension; E11.9 Type 2 diabetes mellitus without complications; E78.5 Hyperlipidemia, unspecified; Z79.4 Long term (current) use of insulin; Z79.02 Long term (current) use of antithrombotics/antiplatelets; Z79.899 Other long term (current) drug therapy; Y93.9 Activity, unspecified; Y92.9 Unspecified place or not applicable; Y99.9 Unspecified external cause status
CPT/HCPCS: 36415; 80048; 80076; 81003; 83605; 83735; 85025; 85610; 85652; 85730; 86140; 87040; 87635; 93971; 96365; 99283; 99284; J0696

== ENCOUNTER 2022-10-07 15:02 | Inpatient (IN) | payer MEDICAID, SELFPAY ==
--- NOTE | ~2022-10-07 | XR_ITS ---
EXAMINATION: PRE-MRI SCREENING/ORBITS CLINICAL INFORMATION: History of radiopaque foreign body removed from the orbits. Pre-MRI evaluation. COMPARISON: None TECHNIQUE: 3 views FINDINGS: There is no radiopaque foreign body seen in the orbits. Visualized bony orbits, maxillofacial bones appear unremarkable. The paranasal sinuses and mastoid air cells are clear. Patient is near completely edentulous . XR/XR pre mri screening IMPRESSION: No radiopaque foreign body seen in the orbits. .
--- NOTE | ~2022-10-07 | MR_ITS ---
EXAMINATION: MRI FOOT WITHOUT AND WITH CONTRAST, RIGHT CLINICAL INFORMATION: Right foot pain, evaluate for osteomyelitis. COMPARISON: Radiographs 10/07/2022. TECHNIQUE: MRI without and with intravenous administration of 10 mL of Gadavist is performed on the right forefoot. FINDINGS: Skin thickening with subcutaneous edema and enhancement surrounding the great toe compatible with cellulitis. Ulceration at the plantar/distal aspect which approximates the underlying cortex of the tuft of the distal phalanx where there is prominent and diffuse marrow edema and enhancement with corresponding loss of T1 signal intensity compatible with osteomyelitis. No abscess. 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 Cortical irregularity with chronic-appearing erosion involves the lateral aspect of the 5th metatarsal head with intermediate signal of the overlying soft tissues, without suspicious enhancement. No metatarsal stress reaction or fracture. MR/MR foot RT wo/w con IMPRESSION: Soft tissue ulceration at the plantar/distal aspect of the great toe with underlying osteomyelitis of the distal phalanx. No abscess.
--- NOTE | ~2022-10-07 | US_ITS ---
EXAMINATION: NONINVASIVE ASSESSMENT OF THE ARTERIES OF BOTH LOWER EXTREMITIES CLINICAL INFORMATION: Right toe infection. COMPARISON: Arterial duplex 09/06/2019. TECHNIQUE: Segmental ankle pulse volume recording, pressure measurement at the ankle and ankle brachial indices were obtained of the lower extremity arterial system bilaterally. In addition, bilateral lower extremity duplex ultrasound was performed with velocity measurements and waveform analysis in the common femoral arteries, profunda femoris arteries, proximal mid and distal superficial femoral arteries, popliteal arteries and tibial vessels. This study was performed at rest only. FINDINGS: a) AT REST: 1. The ankle-brachial indices are: Right 1.28 and left 1.25. >0.97-1.25 = normal - no significant arterial disease. 0.75-0.96 = mild peripheral arterial disease. 0.5-0.74 = moderate peripheral arterial disease. <0.50 = severe peripheral arterial disease. 2. Segmental pressure at ankle: Normal. 3. PVR waveform at ankle: Normal. 4. Duplex exam. Velocities in cm/sec and phasicity as well as the presence of plaque are reported below. RIGHT LEG: Only minimal atherosclerotic changes are seen with good triphasic flow throughout Common Femoral: 146 Profunda Femoris: 86 Proximal SFA: 91 Mid SFA: 106 Distal SFA: 77 Popliteal: 90 Tibial: 35 LEFT LEG: Only minimal atherosclerotic changes are seen with good triphasic flow throughout Common Femoral: 87 Profunda Femoris: 76 Proximal SFA: 91 Mid SFA: 82 Distal SFA: 82 Popliteal: 76 Tibial: 121 Prominent bilateral groin lymph nodes are seen the largest on the right measuring 4.2 x 1.6 x 4.7 cm. US/US SEAN complete IMPRESSION: No evidence of significant peripheral vascular disease.
--- NOTE | ~2022-10-07 | US_ITS ---
EXAMINATION: NONINVASIVE ASSESSMENT OF THE ARTERIES OF BOTH LOWER EXTREMITIES CLINICAL INFORMATION: Right toe infection. COMPARISON: Arterial duplex 09/06/2019. TECHNIQUE: Segmental ankle pulse volume recording, pressure measurement at the ankle and ankle brachial indices were obtained of the lower extremity arterial system bilaterally. In addition, bilateral lower extremity duplex ultrasound was performed with velocity measurements and waveform analysis in the common femoral arteries, profunda femoris arteries, proximal mid and distal superficial femoral arteries, popliteal arteries and tibial vessels. This study was performed at rest only. FINDINGS: a) AT REST: 1. The ankle-brachial indices are: Right 1.28 and left 1.25. >0.97-1.25 = normal - no significant arterial disease. 0.75-0.96 = mild peripheral arterial disease. 0.5-0.74 = moderate peripheral arterial disease. <0.50 = severe peripheral arterial disease. 2. Segmental pressure at ankle: Normal. 3. PVR waveform at ankle: Normal. 4. Duplex exam. Velocities in cm/sec and phasicity as well as the presence of plaque are reported below. RIGHT LEG: Only minimal atherosclerotic changes are seen with good triphasic flow throughout Common Femoral: 146 Profunda Femoris: 86 Proximal SFA: 91 Mid SFA: 106 Distal SFA: 77 Popliteal: 90 Tibial: 35 LEFT LEG: Only minimal atherosclerotic changes are seen with good triphasic flow throughout Common Femoral: 87 Profunda Femoris: 76 Proximal SFA: 91 Mid SFA: 82 Distal SFA: 82 Popliteal: 76 Tibial: 121 Prominent bilateral groin lymph nodes are seen the largest on the right measuring 4.2 x 1.6 x 4.7 cm. US/US arterial duplex LE BI IMPRESSION: No evidence of significant peripheral vascular disease.
--- NOTE | ~2022-10-07 | XR_ITS ---
EXAMINATION: XR FOOT, RIGHT CLINICAL INFORMATION: Infection great toe. COMPARISON: Right foot radiographs 03/13/2021 TECHNIQUE: Right foot is imaged in 3 views. FINDINGS: There are interval erosive changes involving the head and neck of the fifth metatarsal and base fifth proximal phalanx. There is no gas tracking in the soft tissues. The remainder the bony structures including the great toe show no interval bony destructive process. There are bulky plantar and small posterior calcaneal spurs. Bulky dorsal spurring again seen distal dorsal talus. The subtalar joint is unremarkable. XR/XR foot RT min 3V IMPRESSION: -Erosive changes involving the right 5th metatarsal head and neck and base right 5th proximal phalanx. -No gas tracking in soft tissues. No soft tissue mineralization. Findings may be related to osteomyelitis. Para-articular erosions from occult gouty arthropathy is also a consideration. Clinically correlate.
--- NOTE | 2022-10-07 15:25 | ED.SKABFB ---
HPI - Skin/Abscess/Foreign Bdy General Chief complaint: Extremity Problem <BHUPINDER Mathias - Last Filed: 10/07/22 15:32> Stated complaint: Infection R Big Toe <BHUPINDER Mathias - Last Filed: 10/07/22 15:32> Time Seen by Provider: 10/07/22 23:45 <BHUPINDER Mathias - Last Filed: 10/07/22 15:32> Source: patient <Heron Gibbs MD - Last Filed: 10/08/22 00:14> Mode of arrival: ambulatory <Heron Gibbs MD - Last Filed: 10/08/22 00:14> Limitations: no limitations <Heron Gibbs MD - Last Filed: 10/08/22 00:14> History of Present Illness HPI narrative: 57-year-old male with history of diabetes came in for right big toe worsening infection. was started a week ago on doxycycline by the wound clinic with no improvement and worsening of the infection patient was sent in from the wound clinic for further workup and admission. <Heron Gibbs MD - Last Filed: 10/08/22 00:14> Related Data Home medications: Home Medications Medication Instructions Recorded Confirmed albuterol sulfate 90 mcg/actuation 2 puff PO Q4-6H PRN Wheezing 01/01/22 01/01/22 aerosol inhaler (ProAir HFA) insulin aspart U-100 100 unit/mL 15 - 18 unit subcut TIDAC 01/01/22 01/01/22 (3 mL) subcutaneous pen insulin glargine 100 unit/mL (3 60 unit subcut BEDTIME 01/01/22 01/01/22 mL) subcutaneous pen (Lantus Solostar U-100 Insulin) lisinopril 10 1 tab PO DAILY 01/01/22 01/01/22 mg-hydrochlorothiazide 12.5 mg tablet omeprazole 20 mg capsule,delayed 1 cap PO DAILY 01/01/22 01/01/22 release simvastatin 40 mg tablet 1 tab PO BEDTIME 01/01/22 01/01/22 <BHUPINDER Mathias - Last Filed: 10/07/22 15:32> Allergies/Adverse reactions: Allergies Allergy/AdvReac Type Severity Reaction Status Date / Time bee stings Allergy Severe Anaphylaxis Uncoded 01/01/22 11:42 IVP dye Allergy Severe Shortness Uncoded 01/01/22 11:42 of Breath Erythromycin Allergy Intermediate Rash Uncoded 01/01/22 11:42 seasonal Allergy Intermediate Nasal Uncoded 01/01/22 11:42 congestion <BHUPINDER Mathias - Last Filed: 10/07/22 15:32> Review of Systems Review of Systems: All other systems are reviewed and are negative Constitutional: Reports as per HPI and Reports no additional constitutional complaints Eyes: Reports as per HPI and Reports no additional eye complaints Reports system reviewed and no additional complaints, except as documented Cardiovascular: Reports as per HPI and Reports no additional cardiovascular complaints Respiratory: Reports as per HPI and Reports no additional respiratory complaints Gastrointestinal: Reports as per HPI and Reports no additional gastrointestinal complaints Genitourinary: Reports no additional female genitourinary complaints Musculoskeletal: Reports no additional musculoskeletal complaints Skin/Breast: Reports system reviewed and no additional complaints, except as docu Psychiatric: Reports no additional psychiatric complaints Endocrine: Reports no additional endocrine complaints Hematologic/Lymphatic: Reports no additional hematologic/lymphatic complaints Allergic/Immunologic: Reports no additional allergic/immunologic complaints Reports system reviewed and no additional complaints, except as documented and Reports Abnormal speech present <Heron Gibbs MD - Last Filed: 10/08/22 00:14> [facility] Past Medical History Medical History: Medical History Asthma Cellulitis High cholesterol HTN (hypertension) IDDM (insulin dependent diabetes mellitus) Kidney stones <BHUPINDER Mathias - Last Filed: 10/07/22 15:32> Surgical History: Surgical History History of lithotripsy <BHUPINDER Mathias - Last Filed: 10/07/22 15:32> Social History Social History: Social History Advance Directives: No Advance Directives Information Provided: Yes <BHUPINDER Mathias - Last Filed: 10/07/22 15:32> Physical Exam Vital Signs: Vital Signs: Last Vital Signs Temp 97.9 F 10/07/22 23:45 Pulse 75 10/07/22 23:45 Resp 17 10/07/22 23:45 BP 152/93 H 10/07/22 23:45 Pulse Ox 96 10/07/22 23:45 O2 Del Method 10/07/22 23:45 BMI result Body Mass Index 36.6 <BHUPINDER Mathias - Last Filed: 10/07/22 15:32> Vital Signs: Last Vital Signs Temp 97.9 F 10/07/22 23:45 Pulse 75 10/07/22 23:45 Resp 17 10/07/22 23:45 BP 152/93 H 10/07/22 23:45 Pulse Ox 96 10/07/22 23:45 O2 Del Method 10/07/22 23:45 BMI result Body Mass Index 36.6 vital signs have been reviewed as appeared to be correct. Blood pressure normal. Heart rate normal. Respiration rate normal. Temperature normal. Oxygen saturation normal. <Heron Gibbs MD - Last Filed: 10/08/22 00:14> Appearance: Alert. Oriented X3. No acute distress. Head: Normal external exam. Normocephalic. Atraumatic. No Montoya signs noted. No raccoon eyes noted Eyes: PERRLA. EOMI. Conjunctiva and sclera normal. Eyelids normal. ENT: TM's Normal. Pharynx normal. Uvula midline. Moist mucous membranes. No trismus noted. No drooling noted. No muffled voice noted. Neck: Normal inspection. Neck supple. FROM. No adenopathy. Thyroid Normal. No meningeal signs. No neck mass noted. CVS: Normal heart rate and rhythm. Heart sound normal. No murmurs noted. Pulses normal throughout. Respiratory: No respiratory distress. Painless inspiration. Breath sounds normal. No wheezes/rales/rhonchi noted. Chest nontender. No accessory muscle usage noted or decreased air movement noted. Abdomen: Soft and nontender. Bowel sounds normal in all 4 quadrants. No distention noted. No organomegaly noted. No visible injury noted. Back: No CVA tenderness. Full range of motion noted. Skin: Skin warm and dry. Normal skin color. Normal skin turgor. No rashes/lesions/lacerations noted. Extremities: Right foot exam: Generalized swelling of the right foot slightly redness and hotness, right big toe is swollen with tenderness, there is an ulcerative lesion on the palmar aspect of the big toe, no fluctuation, no drainage. Neuro: Oriented X 3. Cranial nerve exam: II-XII are grossly intact No motor deficit. No sensory deficit. Reflexes normal. <Heron Gibbs MD - Last Filed: 10/08/22 00:14> Course Course Course Narrative: LIZETH--57-year-old male with a past medical history of asthma, cellulitis, HLD, HTN, diabetes, renal stones c/o R great toe swelling, infection, pain, and malodor worsening x1 month, was sent in from wound care. Denies fever, chills Right great toe enlarged/swollen, erythematous with malodor. + open wound/ulcer to plantar aspect of great toe. No crepitus. Labs including lactic/blood cultures, ESR/CRP, x-ray, empiric Zosyn/vancomycin ordered in triage <BHUPINDER Mathias - Last Filed: 10/07/22 15:32> Reevaluation(s) Reevaluation #1: Diabetic with right big toe infection persist despite oral outpatient antibiotic. patient do not meet criteria for severe sepsis or septic shock but the x-ray is concern of bone involvement and osteomyelitis, patient failed p.o. trial antibiotic will admit for IV antibiotic. <Heron Gibbs MD - Last Filed: 10/08/22 00:14> Time: 00:07 <Heron Gibbs MD - Last Filed: 10/08/22 00:14> Medical Decision Making Differential Diagnosis Differential Diagnoses: The differential diagnosis associated with the presentation includes ( Right toe cellulitis, osteomyelitis, abscess.) <Heron Gibbs MD - Last Filed: 10/08/22 00:14> Lab Data MDM Lab Attestation statement: I reviewed the patient's lab results. <Heron Gibbs MD - Last Filed: 10/08/22 00:14> Result Diagrams: : 10/07/22 19:48 10/07/22 19:47 <BHUPINDER Mathias - Last Filed: 10/07/22 15:32> Labs: Lab Results 10/07/22 10/07/22 10/07/22 Range/Units 19:46 19:47 19:47 WBC (4.8-10.8) X10*3/uL RBC (4.60-5.80) X10*6/uL Hgb (14.0-18.0) g/dl Hct (42.0-52.0) % MCV (80.0-98.0) fL MCH (27.0-33.0) pg MCHC (31.0-36.0) g/dl RDW (11.0-16.0) % Plt Count (160-400) X10*3/uL MPV (9.4-12.4) fL Immature Gran % (Auto) (0.0-0.4) % Neut % (Auto) (45-73) % Lymph % (Auto) (20-40) % [place] % (Auto) (2-11) % Eos % (Auto) (0-4) % Baso % (Auto) (0-2) % Lymph # (Auto) (1.2-4.9) X10*3/uL [place] # (Auto) (0.1-1.2) X10*3/uL Eos # (Auto) (0.0-0.4) X10*3/uL Baso # (Auto) (0.0-0.2) X10*3/uL Abs Immat Gran (auto) (0.00-0.03) X10*3/uL Absolute Neuts (auto) (2.0-8.3) x10*3/uL Absolute Nucleated RBC (0.0-0.012) X10*3/uL Nucleated RBC % (auto) (0.0-0.2) /100WBC ESR (0-15) MM/HR Sodium 133 L (135-145) mmol/L Potassium 4.8 (3.3-5.1) mmol/L Chloride 97 (96-108) mmol/L Carbon Dioxide 33 H (22-29) mmol/L Anion Gap 8 L (12-20) BUN 12 (9-16) mg/dL Creatinine 0.76 (0.5-1.4) mg/dL Estim Creat Clear Calc 136.6 Estimated GFR > 60 Random Glucose 241 H (60-115) mg/dL Lactic Acid 1.6 (0.5-2.0) mmol/L Calcium 9.3 (8.4-10.2) mg/dL Magnesium 2.2 (1.6-2.6) mg/dL Total Bilirubin 0.4 (0.0-1.0) mg/dL Direct Bilirubin 0.2 (0.0-0.5) mg/dL AST 12 (5-37) U/L ALT 11 (0-40) U/L Alkaline Phosphatase 112 (39-117) U/L C-Reactive Protein 3.45 H (< or = 0.50) mg/dL B-Natriuretic Peptide (<100) pg/mL Total Protein 8.1 H (6.5-8.0) g/dL Albumin 3.9 (3.5-5.0) g/dL COVID-19 ([facility]) Negative (Negative) COVID-19 Clin Com See Note 10/07/22 10/07/22 10/07/22 Range/Units 19:47 19:48 19:48 WBC 7.2 (4.8-10.8) X10*3/uL RBC 4.39 L (4.60-5.80) X10*6/uL Hgb 13.8 L (14.0-18.0) g/dl Hct 41.8 L (42.0-52.0) % MCV 95.2 (80.0-98.0) fL MCH 31.4 (27.0-33.0) pg MCHC 33.0 (31.0-36.0) g/dl RDW 12.5 (11.0-16.0) % Plt Count 276 D (160-400) X10*3/uL MPV 10.0 (9.4-12.4) fL Immature Gran % (Auto) 0.3 (0.0-0.4) % Neut % (Auto) 58.1 (45-73) % Lymph % (Auto) 27.2 (20-40) % [place] % (Auto) 9.7 (2-11) % Eos % (Auto) 4.0 (0-4) % Baso % (Auto) 0.7 (0-2) % Lymph # (Auto) 2.0 (1.2-4.9) X10*3/uL [place] # (Auto) 0.7 (0.1-1.2) X10*3/uL Eos # (Auto) 0.3 (0.0-0.4) X10*3/uL Baso # (Auto) 0.1 (0.0-0.2) X10*3/uL Abs Immat Gran (auto) 0.02 (0.00-0.03) X10*3/uL Absolute Neuts (auto) 4.2 (2.0-8.3) x10*3/uL Absolute Nucleated RBC 0.000 (0.0-0.012) X10*3/uL Nucleated RBC % (auto) 0.0 (0.0-0.2) /100WBC ESR 44 H (0-15) MM/HR Sodium (135-145) mmol/L Potassium (3.3-5.1) mmol/L Chloride (96-108) mmol/L Carbon Dioxide (22-29) mmol/L Anion Gap (12-20) BUN (9-16) mg/dL Creatinine (0.5-1.4) mg/dL Estim Creat Clear Calc Estimated GFR Random Glucose (60-115) mg/dL Lactic Acid (0.5-2.0) mmol/L Calcium (8.4-10.2) mg/dL Magnesium (1.6-2.6) mg/dL Total Bilirubin (0.0-1.0) mg/dL Direct Bilirubin (0.0-0.5) mg/dL AST (5-37) U/L ALT (0-40) U/L Alkaline Phosphatase (39-117) U/L C-Reactive Protein (< or = 0.50) mg/dL B-Natriuretic Peptide 37 (<100) pg/mL Total Protein (6.5-8.0) g/dL Albumin (3.5-5.0) g/dL COVID-19 ([facility]) (Negative) COVID-19 Clin Com <BHUPINDER Mathias - Last Filed: 10/07/22 15:32> Lab Results 10/07/22 10/07/22 10/07/22 Range/Units 19:46 19:47 19:47 WBC (4.8-10.8) X10*3/uL RBC (4.60-5.80) X10*6/uL Hgb (14.0-18.0) g/dl Hct (42.0-52.0) % MCV (80.0-98.0) fL MCH (27.0-33.0) pg MCHC (31.0-36.0) g/dl RDW (11.0-16.0) % Plt Count (160-400) X10*3/uL MPV (9.4-12.4) fL Immature Gran % (Auto) (0.0-0.4) % Neut % (Auto) (45-73) % Lymph % (Auto) (20-40) % [place] % (Auto) (2-11) % Eos % (Auto) (0-4) % Baso % (Auto) (0-2) % Lymph # (Auto) (1.2-4.9) X10*3/uL [place] # (Auto) (0.1-1.2) X10*3/uL Eos # (Auto) (0.0-0.4) X10*3/uL Baso # (Auto) (0.0-0.2) X10*3/uL Abs Immat Gran (auto) (0.00-0.03) X10*3/uL Absolute Neuts (auto) (2.0-8.3) x10*3/uL Absolute Nucleated RBC (0.0-0.012) X10*3/uL Nucleated RBC % (auto) (0.0-0.2) /100WBC ESR (0-15) MM/HR Sodium 133 L (135-145) mmol/L Potassium 4.8 (3.3-5.1) mmol/L Chloride 97 (96-108) mmol/L Carbon Dioxide 33 H (22-29) mmol/L Anion Gap 8 L (12-20) BUN 12 (9-16) mg/dL Creatinine 0.76 (0.5-1.4) mg/dL Estim Creat Clear Calc 136.6 Estimated GFR > 60 Random Glucose 241 H (60-115) mg/dL Lactic Acid 1.6 (0.5-2.0) mmol/L Calcium 9.3 (8.4-10.2) mg/dL Magnesium 2.2 (1.6-2.6) mg/dL Total Bilirubin 0.4 (0.0-1.0) mg/dL Direct Bilirubin 0.2 (0.0-0.5) mg/dL AST 12 (5-37) U/L ALT 11 (0-40) U/L Alkaline Phosphatase 112 (39-117) U/L C-Reactive Protein 3.45 H (< or = 0.50) mg/dL B-Natriuretic Peptide (<100) pg/mL Total Protein 8.1 H (6.5-8.0) g/dL Albumin 3.9 (3.5-5.0) g/dL COVID-19 ([facility]) Negative (Negative) COVID-19 Clin Com See Note 10/07/22 10/07/22 10/07/22 Range/Units 19:47 19:48 19:48 WBC 7.2 (4.8-10.8) X10*3/uL RBC 4.39 L (4.60-5.80) X10*6/uL Hgb 13.8 L (14.0-18.0) g/dl Hct 41.8 L (42.0-52.0) % MCV 95.2 (80.0-98.0) fL MCH 31.4 (27.0-33.0) pg MCHC 33.0 (31.0-36.0) g/dl RDW 12.5 (11.0-16.0) % Plt Count 276 D (160-400) X10*3/uL MPV 10.0 (9.4-12.4) fL Immature Gran % (Auto) 0.3 (0.0-0.4) % Neut % (Auto) 58.1 (45-73) % Lymph % (Auto) 27.2 (20-40) % [place] % (Auto) 9.7 (2-11) % Eos % (Auto) 4.0 (0-4) % Baso % (Auto) 0.7 (0-2) % Lymph # (Auto) 2.0 (1.2-4.9) X10*3/uL [place] # (Auto) 0.7 (0.1-1.2) X10*3/uL Eos # (Auto) 0.3 (0.0-0.4) X10*3/uL Baso # (Auto) 0.1 (0.0-0.2) X10*3/uL Abs Immat Gran (auto) 0.02 (0.00-0.03) X10*3/uL Absolute Neuts (auto) 4.2 (2.0-8.3) x10*3/uL Absolute Nucleated RBC 0.000 (0.0-0.012) X10*3/uL Nucleated RBC % (auto) 0.0 (0.0-0.2) /100WBC ESR 44 H (0-15) MM/HR Sodium (135-145) mmol/L Potassium (3.3-5.1) mmol/L Chloride (96-108) mmol/L Carbon Dioxide (22-29) mmol/L Anion Gap (12-20) BUN (9-16) mg/dL Creatinine (0.5-1.4) mg/dL Estim Creat Clear Calc Estimated GFR Random Glucose (60-115) mg/dL Lactic Acid (0.5-2.0) mmol/L Calcium (8.4-10.2) mg/dL Magnesium (1.6-2.6) mg/dL Total Bilirubin (0.0-1.0) mg/dL Direct Bilirubin (0.0-0.5) mg/dL AST (5-37) U/L ALT (0-40) U/L Alkaline Phosphatase (39-117) U/L C-Reactive Protein (< or = 0.50) mg/dL B-Natriuretic Peptide 37 (<100) pg/mL Total Protein (6.5-8.0) g/dL Albumin (3.5-5.0) g/dL COVID-19 ([facility]) (Negative) COVID-19 Clin Com <Heron Gibbs MD - Last Filed: 10/08/22 00:14> Independent Interpretation I performed an independent interpretation of an: Plain X-Ray ( Right toe: no osteomyelitis to the great toe, destructive bony change to the 5th metatarsal.) <Heron Gibbs MD - Last Filed: 10/08/22 00:14> Radiology Impression Discussion of test interpretation with radiology: I have reviewed the radiologist's reading. <Heron Gibbs MD - Last Filed: 10/08/22 00:14> Discharge Plan Discharge Clinical Impression: Cellulitis <BHUPINDER Mathias - Last Filed: 10/07/22 15:32> Patient Disposition: Admitted As Inpatient <BHUPINDER Mathias - Last Filed: 10/07/22 15:32> Prescriptions: No Action simvastatin 40 mg tablet 1 tab PO BEDTIME omeprazole 20 mg capsule,delayed release(DR/EC) 1 cap PO DAILY lisinopril-hydrochlorothiazide 10-12.5 mg tablet 1 tab PO DAILY insulin aspart U-100 100 unit/mL (3 mL) insulin pen 15 - 18 unit subcut TIDAC insulin glargine [Lantus Solostar U-100 Insulin] 100 unit/mL (3 mL) insulin pen 60 unit subcut BEDTIME albuterol sulfate [ProAir HFA] 90 mcg/actuation HFA aerosol inhaler 2 puff PO Q4-6H PRN (Reason: Wheezing) <BHUPINDER Mathias - Last Filed: 10/07/22 15:32>
[2022-10-07 15:26] VITALS: BP 150/88; PULSE 89; RESP 18; TEMP 36.8; O2SAT 97; BMI 36.6
[2022-10-07 19:57] LABS: MANUAL DIFF FLAG NO
[2022-10-07 20:00] LABS: Basophils Absolute Auto 0.1 X10*3/uL (0.0-0.2); Basophils Percent Auto 0.7 % (0-2); Eosinophils Absolute Auto 0.3 X10*3/uL (0.0-0.4); Hematocrit 41.8 % (42.0-52.0); Hemoglobin 13.8 g/dl (14.0-18.0); Imm Gran Abs Auto 0.02 X10*3/uL (0.00-0.03); Imm Gran Pct Auto 0.3 % (0.0-0.4); Lymphocytes Percent Auto 27.2 % (20-40); Mean Corpuscular Hemoglobin 31.4 pg (27.0-33.0); Mean Corpuscular Volume 95.2 fL (80.0-98.0); Monocytes Absolute Auto 0.7 X10*3/uL (0.1-1.2); Monocytes Percent Auto 9.7 % (2-11); Neutrophils Absolute Auto 4.2 x10*3/uL (2.0-8.3); Neutrophils Percent Auto 58.1 % (45-73); Platelet Count 276 X10*3/uL (160-400); Red Blood Count 4.39 X10*6/uL (4.60-5.80); Red Cell Distribution Width 12.5 % (11.0-16.0); White Blood Count 7.2 X10*3/uL (4.8-10.8)
[2022-10-07 20:07] LABS: Lactic Acid 1.6 mmol/L (0.5-2.0)
[2022-10-07 20:12] LABS: Alanine Aminotransferase 11 U/L (0-40); Albumin Level 3.9 g/dL (3.5-5.0); Alkaline Phosphatase 112 U/L (39-117); Anion Gap 8 (12-20); Aspartate Amino Transferase 12 U/L (5-37); Bilirubin Direct 0.2 mg/dL (0.0-0.5); Bilirubin Total 0.4 mg/dL (0.0-1.0); Blood Urea Nitrogen 12 mg/dL (9-16); C Reactive Protein 3.45 mg/dL (< or = 0.50); Calcium 9.3 mg/dL (8.4-10.2); Carbon Dioxide 33 mmol/L (22-29); Chloride 97 mmol/L (96-108); Creatinine Clr Calc Pharmacy 136.6; Estimated Glomerular Filt Rate > 60; Glucose Random 241 mg/dL (60-115); Magnesium 2.2 mg/dL (1.6-2.6); Potassium 4.8 mmol/L (3.3-5.1); Sodium 133 mmol/L (135-145); Total Protein 8.1 g/dL (6.5-8.0)
[2022-10-07 20:22] LABS: COVID-19 Test Negative (Negative); IDNOW Serial# 6674DD1D
[2022-10-07 20:39] LABS: B Type Natriuretic Peptide 37 pg/mL (<100)
[2022-10-07 20:43] LABS: Erythrocyte Sedimentation Rate 44 MM/HR (0-15)
[2022-10-07 23:45] VITALS: BP 152/93; PULSE 75; RESP 17; TEMP 36.6; O2SAT 96
--- NOTE | 2022-10-08 00:42 | P.HPHOSP_ITS ---
History of Present Illness Date of Service: 10/08/22 Chief Complaint: Right foot infection This is a 57-year-old male with pertinent history of insulin-dependent diabetes mellitus, essential hypertension, hyperlipidemia, gastroesophageal reflux disease who presents to the emergency department for worsening right big toe infection. Patient states he has had right to infection over the last 2 weeks which has worsened. It is associated with purulent foul-smelling drainage. Patient [facility] and completed 10 day course of doxycycline yesterday. No improvement with p.o. antibiotics. Patient was sent by wound clinic for IV antibiotics. He denies fever, chills, nausea, vomiting, chest discomfort, palpitations, shortness of breath, abdominal pain, changes in urinary or bowel habits. No trauma. No similar complaints in the past. States he is compliant with his insulin and p.o. antihypertensives. In the emergency department, x-ray concerning for osteomyelitis, Review of Systems Constitutional: Constitutional: Reports no additional constitutional complaints Cardiovascular: Cardiovascular: Reports no additional cardiovascular complaints Respiratory: Respiratory: Reports no additional respiratory complaints Gastrointestinal: Gastrointestinal: Reports no additional gastrointestinal complaints Genitourinary: Genitourinary: Reports no additional male genitourinary complaints Musculoskeletal: Musculoskeletal: Reports joint swelling [facility] Medical History (Updated 10/08/22 @ 00:47 by David Kitchen MD) Asthma Cellulitis High cholesterol HTN (hypertension) IDDM (insulin dependent diabetes mellitus) Kidney stones Pertinent family history: Does not know of significant medical history in family member Surgical History History of lithotripsy Social History Advance Directives: No Advance Directives Information Provided: Yes Meds Allergies Allergy/AdvReac Type Severity Reaction Status Date / Time bee stings Allergy Severe Anaphylaxis Uncoded 01/01/22 11:42 IVP dye Allergy Severe Shortness Uncoded 01/01/22 11:42 of Breath Erythromycin Allergy Intermediate Rash Uncoded 01/01/22 11:42 seasonal Allergy Intermediate Nasal Uncoded 01/01/22 11:42 congestion Active Medications: Current Medications Acetaminophen (Acetaminophen 325 Mg Tablet) 650 mg PO Q6H PRN PRN Reason: Pain, Mild (Pain Scale 1-3) Dextrose (Dextrose 50 % 25 Gm/50 Ml Syringe) 25 gm IVPUSH Q15M PRN; Protocol PRN Reason: per Hypoglycemia Standing Ord. Enoxaparin Sodium (Enoxaparin Sodium 40 Mg/0.4 Ml Syringe) 40 mg SUBCUT Q24H COUNTS INCLUDE 234 BEDS AT THE [facility] Glucose (Glucose Gel 15 Gm Gel..Gram.) 15 gm PO Q15M PRN; Protocol PRN Reason: per Hypoglycemia Standing Ord. Piperacillin Sod/Tazobactam (Sod 4.5 gm/ Sodium Chloride) 100 mls @ 200 mls/hr IV Q6H COUNTS INCLUDE 234 BEDS AT THE [facility] Insulin Glargine (Insulin Glargine,Hum.Rec.Anlog 100 Unit/Ml 10 Ml Vial) 55 unit SUBCUT BEDTIME MT Insulin Human Lispro (Insulin Lispro 100 Unit/Ml 3 Ml Vial) 0 unit SUBCUT QIDACHS COUNTS INCLUDE 234 BEDS AT THE [facility]; Protocol Melatonin (Melatonin 3 Mg Tablet) 6 mg PO BEDTIME PRN PRN Reason: Insomnia Ondansetron HCl (Ondansetron Hcl 4 Mg/2 Ml Vial) 4 mg IVPUSH Q8H PRN PRN Reason: Nausea and Vomiting Pharmacy Consult (Consult Rx Perform Med Rec) 1 each MISCELLANE ONCE STA Stop: 10/07/22 15:27 Pharmacy Consult (Consult Rx Vancomycin Dosing) 1 each MISCELLANE DAILY PRN PRN Reason: Consult order Sodium Chloride (0.9 % Sodium Chloride Flush 3 Ml Syringe) 3 ml IVFLUSH QSHIFT COUNTS INCLUDE 234 BEDS AT THE [facility] Home Medications Medication Instructions Recorded Confirmed Last Taken Type albuterol sulfate 90 mcg/actuation 2 puff PO Q4-6H PRN Wheezing 01/01/22 01/01/22 Unknown History aerosol inhaler (ProAir HFA) insulin aspart U-100 100 unit/mL 15 - 18 unit subcut TIDAC 01/01/22 01/01/22 01/01/22 History (3 mL) subcutaneous pen insulin glargine 100 unit/mL (3 60 unit subcut BEDTIME 01/01/22 01/01/22 12/31/21 History mL) subcutaneous pen (Lantus Solostar U-100 Insulin) lisinopril 10 1 tab PO DAILY 01/01/22 01/01/22 01/01/22 History mg-hydrochlorothiazide 12.5 mg tablet omeprazole 20 mg capsule,delayed 1 cap PO DAILY 01/01/22 01/01/2222 History release simvastatin 40 mg tablet 1 tab PO BEDTIME 01/01/22 01/01/22 Unknown History Physical Exam Vital Signs and Narrative: Vital Signs: Last Vital Signs Temp 97.9 F 10/07/22 23:45 Pulse 75 10/07/22 23:45 Resp 17 10/07/22 23:45 BP 152/93 H 10/07/22 23:45 Pulse Ox 96 10/07/22 23:45 O2 Del Method 10/07/22 23:45 BMI result Body Mass Index 36.6 Middle-aged male lying in bed in no distress Neck supple, no JVD Regular rate and rhythm, S1-S2 heard Regular breath sounds bilaterally, no wheezing or crackles appreciated Abdomen soft nontender, no guarding, no rigidity Patient is awake, alert and oriented to self, place, time and person ; no focal motor deficit Psych: Normal mood Right foot big toe with serosanguineous foul-smelling drainage Results Labs CBC and Chem 7: 10/07/22 19:48 10/07/22 19:47 Labs: Laboratory Results - last 24 hr 10/07/22 10/07/22 10/07/22 19:46 19:47 19:47 MCV MCH MCHC RDW Plt Count MPV Immature Gran % (Auto) Neut % (Auto) Lymph % (Auto) [place] % (Auto) Eos % (Auto) Baso % (Auto) Lymph # (Auto) [place] # (Auto) Eos # (Auto) Baso # (Auto) Abs Immat Gran (auto) Absolute Neuts (auto) Absolute Nucleated RBC Nucleated RBC % (auto) ESR Anion Gap 8 L Estim Creat Clear Calc 136.6 Estimated GFR > 60 Random Glucose 241 H Lactic Acid 1.6 Calcium 9.3 Magnesium 2.2 Total Bilirubin 0.4 Direct Bilirubin 0.2 AST 12 ALT 11 Alkaline Phosphatase 112 C-Reactive Protein 3.45 H B-Natriuretic Peptide Total Protein 8.1 H Albumin 3.9 COVID-19 ([facility]) Negative COVID-19 Clin Com See Note 10/07/22 10/07/22 10/07/22 19:47 19:48 19:48 MCV 95.2 MCH 31.4 MCHC 33.0 RDW 12.5 Plt Count 276 D MPV 10.0 Immature Gran % (Auto) 0.3 Neut % (Auto) 58.1 Lymph % (Auto) 27.2 [place] % (Auto) 9.7 Eos % (Auto) 4.0 Baso % (Auto) 0.7 Lymph # (Auto) 2.0 [place] # (Auto) 0.7 Eos # (Auto) 0.3 Baso # (Auto) 0.1 Abs Immat Gran (auto) 0.02 Absolute Neuts (auto) 4.2 Absolute Nucleated RBC 0.000 Nucleated RBC % (auto) 0.0 ESR 44 H Anion Gap Estim Creat Clear Calc Estimated GFR Random Glucose Lactic Acid Calcium Magnesium Total Bilirubin Direct Bilirubin AST ALT Alkaline Phosphatase C-Reactive Protein B-Natriuretic Peptide 37 Total Protein Albumin COVID-19 ([facility]) COVID-19 Clin Com Imaging Radiologist's Impressions: Impressions Foot X-Ray 10/07/22 16:18 IMPRESSION: -Erosive changes involving the right 5th metatarsal head and neck and base right 5th proximal phalanx. -No gas tracking in soft tissues. No soft tissue mineralization. Findings may be related to osteomyelitis. Para-articular erosions from occult gouty arthropathy is also a consideration. Clinically correlate. Assessment and Plan (1) Cellulitis: Status: Acute (2) IDDM (insulin dependent diabetes mellitus): Status: Acute Plan This is a 57-year-old male with pertinent history of insulin-dependent diabetes mellitus, essential hypertension, hyperlipidemia, gastroesophageal reflux disease who presents to the emergency department for worsening right big toe infection. #. Right 5th toe diabetic foot infection with cellulitis, with imaging concerning for osteomyelitis: Failed outpatient p.o. antibiotics. Will init iate broad-spectrum empiric IV antibiotics, vancomycin and Zosyn. Consulting Infectious Disease and obtaining MRI to further delineate anatomy. Wound care consult #. Insulin-dependent type 2 diabetes mellitus with hyperglycemia: Reduce home Lantus dose and initiate Accu-Cheks with sliding scale insulin. #. Essential hypertension: Continue home p.o. antihypertensives #. Mixed hyperlipidemia: Continue statin #. Gastroesophageal reflux disease: On PPI Med rec pending DVT prophylaxis: Lovenox 40 mg daily Diabetic diet Full Code Admit as inpatient and will require two night minimum hospital stay for IV antibiotics Time Spent With Patient Time: Total time managing care of this patient today ____ minutes. Quality Stroke Does the patient have a stroke diagnosis?: No VTE Prior VTE?: No VTE Risk Level:: Medical - moderate - high VTE Device Contraindication: Treatment Not Indicated VTE Drug Contraindication: N/A - Med Ordered
[2022-10-08] MEDS: Piperacillin Sodium/Tazobactam 4.5 GM in 0.9 % Sodium Chloride 100 ML IV ×4 (01:23→20:51)
[2022-10-08 01:38] LABS: Glucose, Whole Blood 209 mg/dL (60-115)
[2022-10-08] MEDS: Enoxaparin Sodium 40 MG/0.4 ML SYRINGE SUBCUT ×2 (01:57→20:54)
[2022-10-08] MEDS: Insulin Glargine,Hum.rec.anlog 100 UNIT/ML 10 ML VIAL 55 UNIT SUBCUT ×2 (01:57→20:51)
--- NOTE | 2022-10-08 02:08 | PC.NURSE ---
Pt given turkey sandwich and diet nila victor hugo, no other needs expressed at this time.
--- NOTE | 2022-10-08 04:24 | PC.NURSE ---
Pt sleeping, respirations regular.
[2022-10-08 06:01] VITALS: BP 125/68; PULSE 68; RESP 17; TEMP 36.5; O2SAT 95
--- NOTE | 2022-10-08 06:52 | PC.NURSE ---
Pt right foot wrapped with non stick and rolled gauze. Pt ambulated to restroom.
[2022-10-08 06:59] LABS: MANUAL DIFF FLAG NO
[2022-10-08 07:02] LABS: Basophils Absolute Auto 0.1 X10*3/uL (0.0-0.2); Basophils Percent Auto 0.7 % (0-2); Eosinophils Absolute Auto 0.3 X10*3/uL (0.0-0.4); Eosinophils Percent Auto 3.5 % (0-4); Hematocrit 39.5 % (42.0-52.0); Hemoglobin 12.9 g/dl (14.0-18.0); Imm Gran Abs Auto 0.02 X10*3/uL (0.00-0.03); Imm Gran Pct Auto 0.2 % (0.0-0.4); Lymphocytes Absolute Auto 1.9 X10*3/uL (1.2-4.9); Lymphocytes Percent Auto 23.8 % (20-40); Mean Corpuscular HGB Conc 32.7 g/dl (31.0-36.0); Mean Platelet Volume 10.1 fL (9.4-12.4); Monocytes Absolute Auto 0.7 X10*3/uL (0.1-1.2); Monocytes Percent Auto 8.6 % (2-11); Neutrophils Absolute Auto 5.1 x10*3/uL (2.0-8.3); Neutrophils Percent Auto 63.2 % (45-73); Platelet Count 230 X10*3/uL (160-400); Red Blood Count 4.16 X10*6/uL (4.60-5.80); Red Cell Distribution Width 12.6 % (11.0-16.0); White Blood Count 8.1 X10*3/uL (4.8-10.8)
--- NOTE | 2022-10-08 07:12 | PHA.MEDREC ---
Pharmacy Consult ? Medication Reconciliation Pharmacy has reviewed the medication reconciliation done by Deshawn.
[2022-10-08 07:29] LABS: Anion Gap 11 (12-20); Blood Urea Nitrogen 10 mg/dL (9-16); Calcium 8.8 mg/dL (8.4-10.2); Carbon Dioxide 28 mmol/L (22-29); Chloride 99 mmol/L (96-108); Creatinine Clr Calc Pharmacy 150.4; Estimated Glomerular Filt Rate > 60; Glucose Random 173 mg/dL (60-115); Potassium 4.4 mmol/L (3.3-5.1); Sodium 134 mmol/L (135-145)
[2022-10-08 07:30] LABS: Glucose, Whole Blood 148 mg/dL (60-115)
[2022-10-08 07:48] VITALS: BP 142/77; PULSE 73; RESP 73; TEMP 36.5; O2SAT 96
[2022-10-08] MEDS: 0.9 % Sodium Chloride Flush 3 ML SYRINGE IVFLUSH (07:52)
--- NOTE | 2022-10-08 08:31 | PHA.PROG ---
Admission Date/Time: October 08, 2022 00:38 Indication: SKIN Weight in k.666 kg Adjusted body weight in Kg: [place] body weight in Kg: Obesity Dosing Indication % IBW: Serum Creatinine - Last 168 Hours 10/07/22 10/08/22 19:47 06:30 Creatinine 0.76 0.69 Estimated CrCl and GFR - Last 168 Hours 10/07/22 10/08/22 19:47 06:30 Estim Creat Clear Calc 136.6 150.4 Estimated GFR > 60 > 60 Vancomycin Loading Dose: 2000MG Current Vancomycin Dosing Regimen: 1250 Q12H Vancomycin Monitoring using AUC goal of 400 - 600 range with trough as surrogate marker: AUC 555, TROUGH 15.5 Date and Time for next Vancomycin Level to be drawn: 10/09 @ 1300 Pharmacist Comments on Vancomycin Plan: OBESE MODEL Vancomycin dosing will take advantage of [employer] as a clinical decision support tool that uses Bayesian modeling to calculate individual patient's pharmacokinetic parameters and forecast the patient's drug concentration time course with the target goal AUC 24 range of 400 - 600 mg/L/hr.
[2022-10-08 09:19] VITALS: BP 112/64; PULSE 70
[2022-10-08] MEDS: hydroCHLOROthiazide 12.5 MG TABLET PO (09:20)
[2022-10-08] MEDS: lisinopriL 10 MG TABLET PO (09:20)
--- NOTE | 2022-10-08 10:22 | HE.PHANOTE ---
Methadone verification recieved. Pt is on 115mg, confirmed by Silvana with [facility] at [facility]. Last dose 10/07/22
[2022-10-08] MEDS: methADONE HCl 20 MG/2 ML ORAL.CONC 115 MG PO (10:37)
--- NOTE | 2022-10-08 12:21 | P.PNIM_ITS ---
Subjective Subjective Date of Service: 10/08/22 Interval History: cc: toe infection interval history:unchanged Physical Exam Vital Signs: Vital Signs: Last Vital Signs Temp 97.7 F 10/08/22 07:48 Pulse 70 10/08/22 09:19 Resp 73 H 10/08/22 07:48 BP 112/64 10/08/22 09:19 Pulse Ox 96 10/08/22 07:48 O2 Del Method 10/08/22 07:48 BMI result Body Mass Index 36.6 right big toe ulcer Objective Data Active Medications Acetaminophen (Acetaminophen 325 Mg Tablet) 650 mg PO Q6H PRN PRN Reason: Pain, Mild (Pain Scale 1-3) Atorvastatin Calcium (Atorvastatin Calcium 20 Mg Tablet) 20 mg PO BEDTIME MT Dextrose (Dextrose 50 % 25 Gm/50 Ml Syringe) 25 gm IVPUSH Q15M PRN; Protocol PRN Reason: per Hypoglycemia Standing Ord. Enoxaparin Sodium (Enoxaparin Sodium 40 Mg/0.4 Ml Syringe) 40 mg SUBCUT BEDTIME [facility] Last Admin: 10/08/22 01:57 Dose: 40 mg Documented By: JOSE JUAN Glucose (Glucose Gel 15 Gm Gel..Gram.) 15 gm PO Q15M PRN; Protocol PRN Reason: per Hypoglycemia Standing Ord. Hydrochlorothiazide (Hydrochlorothiazide 12.5 Mg Tablet) 12.5 mg PO DAILY [facility] Last Admin: 10/08/22 09:20 Dose: 12.5 mg Documented By: WENDI Piperacillin Sod/Tazobactam (Sod 4.5 gm/ Sodium Chloride) 100 mls @ 200 mls/hr IV Q6H [facility] Last Infusion: 10/08/22 08:22 Dose: 0 mls/hr Documented By: ANICETO Vancomycin HCl 1,250 mg/ (Sodium Chloride) 250 mls @ 166.667 mls/hr IV Q12H [facility] Insulin Glargine (Insulin Glargine,Hum.Rec.Anlog 100 Unit/Ml 10 Ml Vial) 55 unit SUBCUT BEDTIME [facility] Last Admin: 10/08/22 01:57 Dose: 55 unit Documented By: JOSE JUAN Insulin Human Lispro (Insulin Lispro 100 Unit/Ml 3 Ml Vial) 0 unit SUBCUT QIDACHS [facility]; Protocol Last Admin: 10/08/22 07:52 Dose: Not Given Documented By: ANICETO Non-Admin Reason: No Insulin Coverage Lisinopril (Lisinopril 10 Mg Tablet) 10 mg PO DAILY [facility] Last Admin: 10/08/22 09:20 Dose: 10 mg Documented By: WENDI Melatonin (Melatonin 3 Mg Tablet) 6 mg PO BEDTIME PRN PRN Reason: Insomnia Methadone HCl (Methadone Hcl 20 Mg/2 Ml Oral.Conc) 115 mg PO DAILY [facility] Last Admin: 10/08/22 10:37 Dose: 115 mg Documented By: WENDI Omeprazole (Omeprazole 20 Mg Capsule.Dr) 20 mg PO DAILY@0630 [facility] Last Admin: 10/08/22 08:52 Dose: Not Given Documented By: ANICETO Non-Admin Reason: Patient Refused Ondansetron HCl (Ondansetron Hcl 4 Mg/2 Ml Vial) 4 mg IVPUSH Q8H PRN PRN Reason: Nausea and Vomiting Pharmacy Consult (Consult Rx Vancomycin Dosing) 1 each MISCELLANE DAILY PRN PRN Reason: Consult order Sodium Chloride (0.9 % Sodium Chloride Flush 3 Ml Syringe) 3 ml IVFLUSH QSHIFT [facility] Last Admin: 10/08/22 07:52 Dose: 3 ml Documented By: ANICETO Labs CBC & Chem 7: 10/08/22 06:30 10/08/22 06:30 Labs: Laboratory Results - last 24 hr 10/07/22 10/07/22 10/07/22 19:46 19:47 19:47 MCV MCH MCHC RDW Plt Count MPV Immature Gran % (Auto) Neut % (Auto) Lymph % (Auto) [place] % (Auto) Eos % (Auto) Baso % (Auto) Lymph # (Auto) [place] # (Auto) Eos # (Auto) Baso # (Auto) Abs Immat Gran (auto) Absolute Neuts (auto) Absolute Nucleated RBC Nucleated RBC % (auto) ESR Anion Gap 8 L Estim Creat Clear Calc 136.6 Estimated GFR > 60 POC Glucose Random Glucose 241 H Lactic Acid 1.6 Calcium 9.3 Magnesium 2.2 Total Bilirubin 0.4 Direct Bilirubin 0.2 AST 12 ALT 11 Alkaline Phosphatase 112 C-Reactive Protein 3.45 H B-Natriuretic Peptide Total Protein 8.1 H Albumin 3.9 COVID-19 ([facility]) Negative COVID-19 Clin Com See Note 10/07/22 10/07/22 10/07/22 19:47 19:48 19:48 MCV 95.2 MCH 31.4 MCHC 33.0 RDW 12.5 Plt Count 276 D MPV 10.0 Immature Gran % (Auto) 0.3 Neut % (Auto) 58.1 Lymph % (Auto) 27.2 [place] % (Auto) 9.7 Eos % (Auto) 4.0 Baso % (Auto) 0.7 Lymph # (Auto) 2.0 [place] # (Auto) 0.7 Eos # (Auto) 0.3 Baso # (Auto) 0.1 Abs Immat Gran (auto) 0.02 Absolute Neuts (auto) 4.2 Absolute Nucleated RBC 0.000 Nucleated RBC % (auto) 0.0 ESR 44 H Anion Gap Estim Creat Clear Calc Estimated GFR POC Glucose Random Glucose Lactic Acid Calcium Magnesium Total Bilirubin Direct Bilirubin AST ALT Alkaline Phosphatase C-Reactive Protein B-Natriuretic Peptide 37 Total Protein Albumin COVID-19 ([facility]) [employer] 10/08/22 10/08/22 10/08/22 00:43 01:35 06:30 MCV 95.0 MCH 31.0 MCHC 32.7 RDW 12.6 Plt Count 230 MPV 10.1 Immature Gran % (Auto) 0.2 Neut % (Auto) 63.2 Lymph % (Auto) 23.8 [place] % (Auto) 8.6 Eos % (Auto) 3.5 Baso % (Auto) 0.7 Lymph # (Auto) 1.9 [place] # (Auto) 0.7 Eos # (Auto) 0.3 Baso # (Auto) 0.1 Abs Immat Gran (auto) 0.02 Absolute Neuts (auto) 5.1 Absolute Nucleated RBC 0.000 Nucleated RBC % (auto) 0.0 ESR Anion Gap Estim Creat Clear Calc Estimated GFR POC Glucose 209 H Random Glucose Lactic Acid 1.0 Calcium Magnesium Total Bilirubin Direct Bilirubin AST ALT Alkaline Phosphatase C-Reactive Protein B-Natriuretic Peptide Total Protein Albumin COVID-19 ([facility]) [employer] Com 10/08/22 10/08/22 06:30 07:23 MCV MCH MCHC RDW Plt Count MPV Immature Gran % (Auto) Neut % (Auto) Lymph % (Auto) [place] % (Auto) Eos % (Auto) Baso % (Auto) Lymph # (Auto) [place] # (Auto) Eos # (Auto) Baso # (Auto) Abs Immat Gran (auto) Absolute Neuts (auto) Absolute Nucleated RBC Nucleated RBC % (auto) ESR Anion Gap 11 L Estim Creat Clear Calc 150.4 Estimated GFR > 60 POC Glucose 148 H Random Glucose 173 H D Lactic Acid Calcium 8.8 Magnesium Total Bilirubin Direct Bilirubin AST ALT Alkaline Phosphatase C-Reactive Protein B-Natriuretic Peptide Total Protein Albumin COVID-19 ([facility]) COVID-19 Clin Com Assessment and Plan (1) IDDM (insulin dependent diabetes mellitus): Status: Acute Plan 57-year-old male with pertinent history of insulin-dependent diabetes mellitus, essential hypertension, hyperlipidemia, gastroesophageal reflux disease who presented to the emergency department for worsening right big toe infection. Right 5th toe diabetic foot infection with cellulitis, with imaging concerning for osteomyelitis Failed outpatient p.o. antibiotics.? iv vancomycin and Zosyn.? MRI DM with hyperglycemia basal bolus insulin, monitor poc HTN lisinopril, hctz HLD statin obesity weight loss opiate dependence methadone gerd ppi DVT prophylaxis: Lovenox 40 mg daily Full Code reason for continued hospitalization:iv abx for OM/dfu Time Spent With Patient Time: Total time managing care of this patient today ____ minutes. Quality Stroke Does the patient have a stroke diagnosis?: No VTE Prior VTE?: No VTE Risk Level:: Medical - moderate - high VTE Device Contraindication: Treatment Not Indicated VTE Drug Contraindication: N/A - Med Ordered
[2022-10-08 14:08] LABS: Glucose, Whole Blood 160 mg/dL (60-115)
[2022-10-08] MEDS: Insulin Lispro 100 UNIT/ML 3 ML VIAL SUBCUT ×3 (14:10→20:51)
[2022-10-08 15:05] VITALS: BP 134/71; PULSE 75; RESP 15; TEMP 36.7; O2SAT 96
[2022-10-08] MEDS: vancomycin HCL 1,250 MG in 0.9 % Sodium Chloride 250 ML 166.67 MG IV (15:33)
[2022-10-08 20:10] VITALS: BP 136/69; PULSE 78; RESP 17; TEMP 36.4; O2SAT 96
[2022-10-08 20:35] LABS: Glucose, Whole Blood 218 mg/dL (60-115)
[2022-10-08 20:35] LABS: Glucose, Whole Blood 240 mg/dL (60-115)
[2022-10-08] MEDS: Atorvastatin Calcium 20 MG TABLET PO (20:52)
[2022-10-08] MEDS: Melatonin 3 MG TABLET 6 MG PO (20:52)
[2022-10-08 21:21] VITALS: BP 136/69; PULSE 78; RESP 17; TEMP 36.4; O2SAT 96
--- NOTE | 2022-10-08 21:22 | MHC.EDTECH ---
pt ambulates back and forth to the restroom with no problems , he was re educated that is was not suppose to walk due to his foot but he chooses instead of using the urinal..vitals were taken and his POC was done
--- NOTE | 2022-10-08 22:10 | PC.NURSE ---
new dressing applied to R toe with nonstick pads
[2022-10-09] VITALS: BP 124/76; PULSE 62; RESP 20; TEMP 36.7; O2SAT 98
[2022-10-09] MEDS: 0.9 % Sodium Chloride Flush 3 ML SYRINGE IVFLUSH ×4 (00:54→22:41)
[2022-10-09] MEDS: Piperacillin Sodium/Tazobactam 4.5 GM in 0.9 % Sodium Chloride 100 ML IV ×4 (02:24→19:36)
[2022-10-09] MEDS: vancomycin HCL 1,250 MG in 0.9 % Sodium Chloride 250 ML 166.67 MG IV (03:50)
[2022-10-09 05:12] LABS: Hematocrit 39.2 % (42.0-52.0); Mean Corpuscular HGB Conc 33.2 g/dl (31.0-36.0); Mean Corpuscular Hemoglobin 31.5 pg (27.0-33.0); Mean Corpuscular Volume 94.9 fL (80.0-98.0); Mean Platelet Volume 10.2 fL (9.4-12.4); Platelet Count 234 X10*3/uL (160-400); Red Blood Count 4.13 X10*6/uL (4.60-5.80); Red Cell Distribution Width 12.6 % (11.0-16.0); White Blood Count 6.6 X10*3/uL (4.8-10.8)
[2022-10-09 05:26] LABS: Anion Gap 12 (12-20); Blood Urea Nitrogen 11 mg/dL (9-16); Carbon Dioxide 27 mmol/L (22-29); Chloride 100 mmol/L (96-108); Creatinine Clr Calc Pharmacy 126.6; Estimated Glomerular Filt Rate > 60; Glucose Fasting 116 mg/dL (60-99); Potassium 4.1 mmol/L (3.3-5.1); Sodium 135 mmol/L (135-145)
[2022-10-09] MEDS: Omeprazole 20 MG CAPSULE.DR PO (06:23)
--- NOTE | 2022-10-09 06:48 | PC.NURSE ---
Patient slept throughout night , up to bathroom independently. Walks with steady gait. Antibiotics administered as ordered.
[2022-10-09 07:21] LABS: Glucose, Whole Blood 113 mg/dL (60-115)
[2022-10-09] MEDS: lisinopriL 10 MG TABLET PO (09:11)
[2022-10-09] MEDS: hydroCHLOROthiazide 12.5 MG TABLET PO (09:11)
[2022-10-09] MEDS: methADONE HCl 20 MG/2 ML ORAL.CONC 115 MG PO (09:23)
[2022-10-09 09:31] VITALS: BP 152/79; PULSE 72; RESP 20; TEMP 36.5; O2SAT 95
--- NOTE | 2022-10-09 11:37 | HO.PM.IMPN ---
Subjective Subjective Date of Service: 10/09/22 Interval History: cc: toe infection interval history:unchanged Physical Exam Vital Signs: Vital Signs: Last Vital Signs Temp 97.7 F 10/09/22 09:31 Pulse 72 10/09/22 09:31 Resp 20 10/09/22 09:31 BP 152/79 H 10/09/22 09:31 Pulse Ox 95 10/09/22 09:31 O2 Del Method 10/09/22 09:31 BMI result Body Mass Index 36.6 right big toe ulcer Objective Data Active Medications Acetaminophen (Acetaminophen 325 Mg Tablet) 650 mg PO Q6H PRN PRN Reason: Pain, Mild (Pain Scale 1-3) Atorvastatin Calcium (Atorvastatin Calcium 20 Mg Tablet) 20 mg PO BEDTIME [facility] Last Admin: 10/08/22 20:52 Dose: 20 mg Documented By: LISA Dextrose (Dextrose 50 % 25 Gm/50 Ml Syringe) 25 gm IVPUSH Q15M PRN; Protocol PRN Reason: per Hypoglycemia Standing Ord. Enoxaparin Sodium (Enoxaparin Sodium 40 Mg/0.4 Ml Syringe) 40 mg SUBCUT BEDTIME [facility] Last Admin: 10/08/22 20:54 Dose: 40 mg Documented By: LISA Glucose (Glucose Gel 15 Gm Gel..Gram.) 15 gm PO Q15M PRN; Protocol PRN Reason: per Hypoglycemia Standing Ord. Hydrochlorothiazide (Hydrochlorothiazide 12.5 Mg Tablet) 12.5 mg PO DAILY [facility] Last Admin: 10/09/22 09:11 Dose: 12.5 mg Documented By: DANIA Piperacillin Sod/Tazobactam (Sod 4.5 gm/ Sodium Chloride) 100 mls @ 200 mls/hr IV Q6H [facility] Last Admin: 10/09/22 09:06 Dose: 200 mls/hr Documented By: DANIA Vancomycin HCl 1,250 mg/ (Sodium Chloride) 250 mls @ 166.667 mls/hr IV Q12H [facility] Last Infusion: 10/09/22 05:46 Dose: 166.67 mls/hr Documented By: CHAD Insulin Glargine (Insulin Glargine,Hum.Rec.Anlog 100 Unit/Ml 10 Ml Vial) 55 unit SUBCUT BEDTIME [facility] Last Admin: 10/08/22 20:51 Dose: 55 unit Documented By: LISA Insulin Human Lispro (Insulin Lispro 100 Unit/Ml 3 Ml Vial) 0 unit SUBCUT QIDACHS [facility]; Protocol Last Admin: 10/09/22 07:16 Dose: Not Given Documented By: DANIA Non-Admin Reason: No Insulin Coverage Comments: 113 Lisinopril (Lisinopril 10 Mg Tablet) 10 mg PO DAILY [facility] Last Admin: 10/09/22 09:11 Dose: 10 mg Documented By: DANIA Melatonin (Melatonin 3 Mg Tablet) 6 mg PO BEDTIME PRN PRN Reason: Insomnia Last Admin: 10/08/22 20:52 Dose: 6 mg Documented By: LISA Methadone HCl (Methadone Hcl 20 Mg/2 Ml Oral.Conc) 115 mg PO DAILY [facility] Last Admin: 10/09/22 09:23 Dose: 115 mg Documented By: DANIA Omeprazole (Omeprazole 20 Mg Capsule.Dr) 20 mg PO DAILY@0630 [facility] Last Admin: 10/09/22 06:23 Dose: 20 mg Documented By: CHAD Ondansetron HCl (Ondansetron Hcl 4 Mg/2 Ml Vial) 4 mg IVPUSH Q8H PRN PRN Reason: Nausea and Vomiting Pharmacy Consult (Consult Rx Vancomycin Dosing) 1 each MISCELLANE DAILY PRN PRN Reason: Consult order Sodium Chloride (0.9 % Sodium Chloride Flush 3 Ml Syringe) 3 ml IVFLUSH QSHIFT [facility] Last Admin: 10/09/22 09:11 Dose: 3 ml Documented By: DANIA Labs 10/09/22 04:33 10/09/22 04:33 Labs: Laboratory Results - last 24 hr 10/08/22 10/08/22 10/08/22 14:04 18:14 20:24 MCV MCH MCHC RDW Plt Count MPV Absolute Nucleated RBC Nucleated RBC % (auto) Anion Gap Estim Creat Clear Calc Estimated GFR POC Glucose 160 H 218 H 240 H Fasting Glucose Calcium 10/09/22 10/09/22 10/09/22 04:33 04:33 07:15 MCV 94.9 MCH 31.5 MCHC 33.2 RDW 12.6 Plt Count 234 MPV 10.2 Absolute Nucleated RBC 0.000 Nucleated RBC % (auto) 0.0 Anion Gap 12 Estim Creat Clear Calc 126.6 Estimated GFR > 60 POC Glucose 113 Fasting Glucose 116 H Calcium 9.0 Microbiology Microbiology Results: Microbiology 10/07/22 19:47 Blood Culture - Preliminary Blood - Venous No growth after 24 hours. 10/07/22 19:47 Blood Culture - Preliminary Blood - Venous No growth after 24 hours. Assessment and Plan (1) IDDM (insulin dependent diabetes mellitus): Status: Acute Plan 57-year-old male with pertinent history of insulin-dependent diabetes mellitus, essential hypertension, hyperlipidemia, gastroesophageal reflux disease who presented to the emergency department for worsening right big toe infection. Right 5th toe diabetic foot infection with cellulitis, with imaging concerning for osteomyelitis Failed outpatient p.o. antibiotics.? iv vancomycin and Zosyn.? MRI - concerning for OM follow up ID DM with hyperglycemia basal bolus insulin, monitor poc HTN lisinopril, hctz HLD statin obesity weight loss opiate dependence methadone gerd ppi DVT prophylaxis: Lovenox 40 mg daily Full Code reason for continued hospitalization:iv abx for OM/dfu Time Spent With Patient Time: Total time managing care of this patient today ____ minutes. Quality Stroke Does the patient have a stroke diagnosis?: No VTE Prior VTE?: No VTE Risk Level:: Medical - moderate - high VTE Device Contraindication: Treatment Not Indicated VTE Drug Contraindication: N/A - Med Ordered
--- NOTE | 2022-10-09 12:08 | MHC.EDTECH ---
Moved patient from ED Overflow Room 11 to Room 12 due to patient being disruptive and Room 12 has a door that can be closed. Sarah Hartley
[2022-10-09 13:02] LABS: Glucose, Whole Blood 206 mg/dL (60-115)
[2022-10-09] MEDS: Insulin Lispro 100 UNIT/ML 3 ML VIAL SUBCUT ×3 (13:31→21:06)
--- NOTE | 2022-10-09 13:41 | PC.NURSE ---
RN TO RN REPORT GIVEN TO JESSICA BURCH. PT TRANSPORTED TO [facility]
--- NOTE | 2022-10-09 13:43 | MHC.EDTECH ---
Pt brought up to 345, chart left at union organizer desk.
[2022-10-09 13:49] LABS: Vancomycin Trough 8.7 mcg/mL (10.0-20.0)
[2022-10-09 14:24] VITALS: BP 128/78; PULSE 76; RESP 18; TEMP 36.8; O2SAT 95
[2022-10-09 15:08] VITALS: BP 150/70; PULSE 74; RESP 17; TEMP 36.3; O2SAT 94
[2022-10-09] MEDS: vancomycin HCL 1,000 MG in 0.9 % Sodium Chloride 250 ML 270 MG IV ×2 (15:48→22:38)
--- NOTE | 2022-10-09 15:48 | P.CNID_ITS ---
History of Present Illness Data of Consult Service Date: 10/09/22 Requesting physician: Arnoldo Moulton Primary Care Provider: Valery Berrios [facility] Reason for consult: right great toe erythema He presents with right great toe wound which is worse over last week and not healing. He has no fever or chills. MRI shows osteomyelitis right great toe. He has MSSA and Group B strep last month wound. Review of Systems Review of Systems: Yes all other systems are reviewed and are negative PMFSH Past Medical History Medical History (Updated 10/09/22 @ 15:51 by Mary Song MD) Asthma Cellulitis High cholesterol HTN (hypertension) IDDM (insulin dependent diabetes mellitus) Kidney stones Osteomyelitis Family History Family history: reviewed and not pertinent Surgical History Surgical History History of lithotripsy Social History Social History Household Members: Friend(s) Housing: House Do you presently have visiting nurse or other home services: No (Had wound care visiting nurses at some point but discontinued) Patient Tobacco Use Status: Current someday Tobacco user Tobacco use type: Cigarette Substance Use Type: Crack/Cocaine and Marijuana Meds Allergies Allergy/AdvReac Type Severity Reaction Status Date / Time bee venom protein (honey bee) Allergy Severe Anaphylaxis Verified 10/08/22 12:26 erythromycin base Allergy Intermediate Rash Verified 10/08/22 12:26 Iodinated Contrast Media AdvReac Intermediate Shortness Verified 10/08/22 12:26 of Breath Active Medications: Current Medications Acetaminophen (Acetaminophen 325 Mg Tablet) 650 mg PO Q6H PRN PRN Reason: Pain, Mild (Pain Scale 1-3) Atorvastatin Calcium (Atorvastatin Calcium 20 Mg Tablet) 20 mg PO BEDTIME [facility] Last Admin: 10/08/22 20:52 Dose: 20 mg Dextrose (Dextrose 50 % 25 Gm/50 Ml Syringe) 25 gm IVPUSH Q15M PRN; Protocol PRN Reason: per Hypoglycemia Standing Ord. Enoxaparin Sodium (Enoxaparin Sodium 40 Mg/0.4 Ml Syringe) 40 mg SUBCUT BEDTIME [facility] Last Admin: 10/08/22 20:54 Dose: 40 mg Glucose (Glucose Gel 15 Gm Gel..Gram.) 15 gm PO Q15M PRN; Protocol PRN Reason: per Hypoglycemia Standing Ord. Hydrochlorothiazide (Hydrochlorothiazide 12.5 Mg Tablet) 12.5 mg PO DAILY [facility] Last Admin: 10/09/22 09:11 Dose: 12.5 mg Piperacillin Sod/Tazobactam (Sod 4.5 gm/ Sodium Chloride) 100 mls @ 200 mls/hr IV Q6H [facility] Last Infusion: 10/09/22 15:04 Dose: Infused Vancomycin HCl 1,000 mg/ (Sodium Chloride) 270 mls @ 270 mls/hr IV Q8H [facility] Insulin Glargine (Insulin Glargine,Hum.Rec.Anlog 100 Unit/Ml 10 Ml Vial) 55 unit SUBCUT BEDTIME [facility] Last Admin: 10/08/22 20:51 Dose: 55 unit Insulin Human Lispro (Insulin Lispro 100 Unit/Ml 3 Ml Vial) 0 unit SUBCUT QIDACHS [facility]; Protocol Last Admin: 10/09/22 13:31 Dose: 4 unit Lisinopril (Lisinopril 10 Mg Tablet) 10 mg PO DAILY [facility] Last Admin: 10/09/22 09:11 Dose: 10 mg Melatonin (Melatonin 3 Mg Tablet) 6 mg PO BEDTIME PRN PRN Reason: Insomnia Last Admin: 10/08/22 20:52 Dose: 6 mg Methadone HCl (Methadone Hcl 20 Mg/2 Ml Oral.Conc) 115 mg PO DAILY [facility] Last Admin: 10/09/22 09:23 Dose: 115 mg Omeprazole (Omeprazole 20 Mg Capsule.Dr) 20 mg PO DAILY@0630 [facility] Last Admin: 10/09/22 06:23 Dose: 20 mg Ondansetron HCl (Ondansetron Hcl 4 Mg/2 Ml Vial) 4 mg IVPUSH Q8H PRN PRN Reason: Nausea and Vomiting Pharmacy Consult (Consult Rx Vancomycin Dosing) 1 each MISCELLANE DAILY PRN PRN Reason: Consult order Sodium Chloride (0.9 % Sodium Chloride Flush 3 Ml Syringe) 3 ml IVFLUSH QSHIFT [facility] Last Admin: 10/09/22 09:11 Dose: 3 ml Home Medications Medication Instructions Recorded Confirmed Last Taken Type albuterol sulfate 90 mcg/actuation 2 puff PO Q4-6H PRN Wheezing 01/01/22 10/08/22 Unknown History aerosol inhaler (ProAir HFA) insulin aspart U-100 100 unit/mL 15 - 18 unit subcut TIDAC 01/01/22 10/08/22 01/01/22 History (3 mL) subcutaneous pen insulin glargine 100 unit/mL (3 60 unit subcut BEDTIME 01/01/22 10/08/22 12/31/21 History mL) subcutaneous pen (Lantus Solostar U-100 Insulin) lisinopril 10 1 tab PO DAILY 01/01/22 10/08/22 01/01/22 History mg-hydrochlorothiazide 12.5 mg tablet omeprazole 20 mg capsule,delayed 1 cap PO DAILY 01/01/22 10/08/22 01/01/22 History release simvastatin 40 mg tablet 1 tab PO BEDTIME 01/01/22 10/08/22 Unknown History methadone 5 mg/5 mL oral syringe 115 mg PO DAILY 10/08/22 10/08/22 10/07/22 History (FOR ORAL USE ONLY) Physical Exam Vital Signs: Vital Signs: Last Vital Signs Temp 97.3 F 10/09/22 15:08 Pulse 74 10/09/22 15:08 Resp 17 10/09/22 15:08 BP 150/70 H 10/09/22 15:08 Pulse Ox 94 10/09/22 15:08 O2 Del Method 10/09/22 15:08 BMI result Body Mass Index 36.6 Const: General: cooperative HEENT: Head: Yes normal to inspection Face and sinus: Yes normal facial exam Mouth: Normal oral and palatal mucosa present Teeth and gingiva: dentition normal Eyes: General: appearance normal, both eyes and all related structures Pu pils: Equal, round and reactive pupils present Resp: Effort & Inspection: normal respiratory effort Cardio: Rate: regular rate Rhythm: regular rhythm GI: Palpation (GI): Soft to palpation and nontender : General: Yes no CVA tenderness Back/Spine/Pelvis: Back: no CVA tenderness Skin: General skin exam: no rashes or lesions noted Neuro: General: moves all extremities Cranial nerves: Yes Equal, round and reactive pupils present Extrem: Other: 2.5 cm rounded area under right great toe erythema General: Yes normal to inspection Psych: Appearance: grossly normal Results Labs 10/09/22 04:33 10/09/22 04:33 Labs: Short CBC 10/09/22 Range/Units 04:33 WBC 6.6 (4.8-10.8) X10*3/uL Hgb 13.0 L (14.0-18.0) g/dl Hct 39.2 L (42.0-52.0) % Plt Count 234 (160-400) X10*3/uL BMP 10/09/22 04:33 Sodium 135 Potassium 4.1 Chloride 100 Carbon Dioxide 27 BUN 11 Creatinine 0.82 Calcium 9.0 Microbiology Microbiology Results: Microbiology 10/07/22 19:47 Blood - Venous Blood Culture - Preliminary No growth after 24 hours. 10/07/22 19:47 Blood - Venous Blood Culture - Preliminary No growth after 24 hours. Assessment and Plan (1) Osteomyelitis: Status: Acute He has right great toe probable staph and/or strep infection He has no penicillin allergy listed. Plan IV Ertapenem help suppress osteomyelitis for six week Possible po Doxycycline after. Follow with Vascular if not done and Wound Clinic. Time Spent With Patient Time: Total time managing care of this patient today ____ minutes.
[2022-10-09 16:35] LABS: Glucose, Whole Blood 209 mg/dL (60-115)
[2022-10-09 19:32] VITALS: BP 147/76; PULSE 71; RESP 17; TEMP 36.1; O2SAT 95
[2022-10-09 20:31] LABS: Glucose, Whole Blood 168 mg/dL (60-115)
[2022-10-09] MEDS: Insulin Glargine,Hum.rec.anlog 100 UNIT/ML 10 ML VIAL 55 UNIT SUBCUT (21:06)
[2022-10-09] MEDS: Atorvastatin Calcium 20 MG TABLET PO (21:06)
[2022-10-09] MEDS: Enoxaparin Sodium 40 MG/0.4 ML SYRINGE SUBCUT (21:07)
[2022-10-09] MEDS: polyethylene glycoL 3350 17 GM POWD.PACK PO (22:45)
[2022-10-10] MEDS: Piperacillin Sodium/Tazobactam 4.5 GM in 0.9 % Sodium Chloride 100 ML IV ×4 (02:26→18:43)
[2022-10-10 04:00] VITALS: BP 129/79; PULSE 66; RESP 17; TEMP 36.2; O2SAT 93
[2022-10-10 05:44] LABS: Hematocrit 38.7 % (42.0-52.0); Hemoglobin 13.1 g/dl (14.0-18.0); Mean Corpuscular HGB Conc 33.9 g/dl (31.0-36.0); Mean Corpuscular Hemoglobin 32.6 pg (27.0-33.0); Mean Corpuscular Volume 96.3 fL (80.0-98.0); Mean Platelet Volume 10.3 fL (9.4-12.4); Platelet Count 228 X10*3/uL (160-400); Red Blood Count 4.02 X10*6/uL (4.60-5.80); Red Cell Distribution Width 12.6 % (11.0-16.0); White Blood Count 6.5 X10*3/uL (4.8-10.8)
[2022-10-10 05:56] LABS: Anion Gap 11 (12-20); Blood Urea Nitrogen 10 mg/dL (9-16); Calcium 9.1 mg/dL (8.4-10.2); Carbon Dioxide 29 mmol/L (22-29); Chloride 101 mmol/L (96-108); Creatinine Clr Calc Pharmacy 131.4; Estimated Glomerular Filt Rate > 60; Glucose Fasting 77 mg/dL (60-99); Sodium 137 mmol/L (135-145)
[2022-10-10] MEDS: vancomycin HCL 1,000 MG in 0.9 % Sodium Chloride 250 ML 270 MG IV ×3 (06:09→23:39)
[2022-10-10] MEDS: Omeprazole 20 MG CAPSULE.DR PO (06:09)
[2022-10-10] MEDS: 0.9 % Sodium Chloride Flush 3 ML SYRINGE IVFLUSH ×3 (07:26→21:34)
[2022-10-10 07:53] LABS: Glucose, Whole Blood 97 mg/dL (60-115)
[2022-10-10 08:00] VITALS: BP 125/73; PULSE 67; RESP 18; TEMP 36.4; O2SAT 96
[2022-10-10] MEDS: lisinopriL 10 MG TABLET PO (08:06)
[2022-10-10] MEDS: methADONE HCl 20 MG/2 ML ORAL.CONC 115 MG PO (08:06)
[2022-10-10] MEDS: hydroCHLOROthiazide 12.5 MG TABLET PO (08:06)
--- NOTE | 2022-10-10 09:08 | HO.PM.IMPN ---
Subjective Subjective Date of Service: 10/10/22 Interval History: cc: toe infection interval history:unchanged Physical Exam Vital Signs: Vital Signs: Last Vital Signs Temp 97.6 F 10/10/22 08:00 Pulse 67 10/10/22 08:00 Resp 18 10/10/22 08:00 BP 125/73 10/10/22 08:00 Pulse Ox 96 10/10/22 08:00 O2 Del Method 10/10/22 08:00 BMI result Body Mass Index 36.6 Const: General: cooperative HEENT: Head: Yes normal to inspection Face and sinus: Yes normal facial exam Mouth: Normal oral and palatal mucosa present Teeth and gingiva: dentition normal Eyes: General: appearance normal, both eyes and all related structures Pupils: Equal, round and reactive pupils present Resp: Effort & Inspection: normal respiratory effort Cardio: Rate: regular rate Rhythm: regular rhythm GI: Palpation (GI): Soft to palpation and nontender : General: Yes no CVA tenderness Back/Spine/Pelvis: Back: no CVA tenderness Skin: General skin exam: no rashes or lesions noted Neuro: General: moves all extremities Cranial nerves: Yes Equal, round and reactive pupils present Extrem: Other: 2.5 cm rounded area under right great toe erythema General: Yes normal to inspection Psych: Appearance: grossly normal Objective Data Active Medications Acetaminophen (Acetaminophen 325 Mg Tablet) 650 mg PO Q6H PRN PRN Reason: Pain, Mild (Pain Scale 1-3) Atorvastatin Calcium (Atorvastatin Calcium 20 Mg Tablet) 20 mg PO BEDTIME [facility] Last Admin: 10/09/22 21:06 Dose: 20 mg Documented By: RICK Dextrose (Dextrose 50 % 25 Gm/50 Ml Syringe) 25 gm IVPUSH Q15M PRN; Protocol PRN Reason: per Hypoglycemia Standing Ord. Enoxaparin Sodium (Enoxaparin Sodium 40 Mg/0.4 Ml Syringe) 40 mg SUBCUT BEDTIME [facility] Last Admin: 10/09/22 21:07 Dose: 40 mg Documented By: RICK Glucose (Glucose Gel 15 Gm Gel..Gram.) 15 gm PO Q15M PRN; Protocol PRN Reason: per Hypoglycemia Standing Ord. Hydrochlorothiazide (Hydrochlorothiazide 12.5 Mg Tablet) 12.5 mg PO DAILY [facility] Last Admin: 10/10/22 08:06 Dose: 12.5 mg Documented By: RYLAN Piperacillin Sod/Tazobactam (Sod 4.5 gm/ Sodium Chloride) 100 mls @ 200 mls/hr IV Q6H [facility] Last Infusion: 10/10/22 08:05 Dose: 0 mls/hr Documented By: RYLAN Vancomycin HCl 1,000 mg/ (Sodium Chloride) 270 mls @ 270 mls/hr IV Q8H [facility] Last Infusion: 10/10/22 07:23 Dose: 0 mls/hr Documented By: RYLAN Insulin Glargine (Insulin Glargine,Hum.Rec.Anlog 100 Unit/Ml 10 Ml Vial) 55 unit SUBCUT BEDTIME [facility] Last Admin: 10/09/22 21:06 Dose: 55 unit Documented By: RICK Insulin Human Lispro (Insulin Lispro 100 Unit/Ml 3 Ml Vial) 0 unit SUBCUT QIDACHS [facility]; Protocol Last Admin: 10/10/22 07:30 Dose: Not Given Documented By: RYLAN Non-Admin Reason: No Insulin Coverage Lisinopril (Lisinopril 10 Mg Tablet) 10 mg PO DAILY [facility] Last Admin: 10/10/22 08:06 Dose: 10 mg Documented By: RYLAN Melatonin (Melatonin 3 Mg Tablet) 6 mg PO BEDTIME PRN PRN Reason: Insomnia Last Admin: 10/08/22 20:52 Dose: 6 mg Documented By: LISA Methadone HCl (Methadone Hcl 20 Mg/2 Ml Oral.Conc) 115 mg PO DAILY [facility] Last Admin: 10/10/22 08:06 Dose: 115 mg Documented By: RYLAN Omeprazole (Omeprazole 20 Mg Capsule.Dr) 20 mg PO DAILY@0630 [facility] Last Admin: 10/10/22 06:09 Dose: 20 mg Documented By: RICK Ondansetron HCl (Ondansetron Hcl 4 Mg/2 Ml Vial) 4 mg IVPUSH Q8H PRN PRN Reason: Nausea and Vomiting Pharmacy Consult (Consult Rx Vancomycin Dosing) 1 each MISCELLANE DAILY PRN PRN Reason: Consult order Polyethylene Glycol (Polyethylene Glycol 3350 17 Gm Powd.Pack) 17 gm PO DAILY PRN PRN Reason: Constipation Last Admin: 10/09/22 22:45 Dose: 17 gm Documented By: RICK Sodium Chloride (0.9 % Sodium Chloride Flush 3 Ml Syringe) 3 ml IVFLUSH QSHIFT [facility] Last Admin: 10/10/22 07:26 Dose: 3 ml Documented By: RYLAN Labs 10/10/22 05:05 10/10/22 05:05 Labs: Laboratory Results - last 24 hr 10/09/22 10/09/22 10/09/22 12:51 13:17 16:23 MCV MCH MCHC RDW Plt Count MPV Absolute Nucleated RBC Nucleated RBC % (auto) Anion Gap Estim Creat Clear Calc Estimated GFR POC Glucose 206 H 209 H Fasting Glucose Calcium Vancomycin Trough 8.7 L 10/09/22 10/10/22 10/10/22 20:21 05:05 05:05 MCV 96.3 MCH 32.6 MCHC 33.9 RDW 12.6 Plt Count 228 MPV 10.3 Absolute Nucleated RBC 0.000 Nucleated RBC % (auto) 0.0 Anion Gap 11 L Estim Creat Clear Calc 131.4 Estimated GFR > 60 POC Glucose 168 H Fasting Glucose 77 Calcium 9.1 Vancomycin Trough 10/10/22 07:29 MCV MCH MCHC RDW Plt Count MPV Absolute Nucleated RBC Nucleated RBC % (auto) Anion Gap Estim Creat Clear Calc Estimated GFR POC Glucose 97 Fasting Glucose Calcium Vancomycin Trough Microbiology Microbiology Results: Microbiology 10/07/22 19:47 Blood Culture - Preliminary Blood - Venous No growth after 48 hours. 10/07/22 19:47 Blood Culture - Preliminary Blood - Venous No growth after 48 hours. Assessment and Plan (1) IDDM (insulin dependent diabetes mellitus): Status: Acute Plan 57-year-old male with pertinent history of insulin-dependent diabetes mellitus, essential hypertension, hyperlipidemia, gastroesophageal reflux disease who presented to the emergency department for worsening right big toe infection. Right 5th toe diabetic foot infection with cellulitis, with imaging concerning for osteomyelitis Failed outpatient p.o. antibiotics.? iv vancomycin and Zosyn.? MRI - concerning for OM ID appreciated, check vascular studies, plan for 6 weeks ertapenem DM with hyperglycemia basal bolus insulin, monitor poc HTN lisinopril, hctz HLD statin obesity weight loss opiate dependence methadone gerd ppi DVT prophylaxis: Lovenox 40 mg daily Full Code reason for continued hospitalization:iv abx for OM/dfu Time Spent With Patient Time: Total time managing care of this patient today ____ minutes. Quality Stroke Does the patient have a stroke diagnosis?: No VTE Prior VTE?: No VTE Risk Level:: Medical - moderate - high VTE Device Contraindication: Treatment Not Indicated VTE Drug Contraindication: N/A - Med Ordered
[2022-10-10 11:43] LABS: Glucose, Whole Blood 154 mg/dL (60-115)
[2022-10-10] MEDS: Insulin Lispro 100 UNIT/ML 3 ML VIAL SUBCUT ×2 (11:49→21:34)
--- NOTE | 2022-10-10 13:52 | HE.PHANOTE ---
Vancomycin Dosing Level therapeutic at 14 today. Continue current regimen vanco 1000 mg Q8H. Next level to be drawn 10/11 @ 1300. Lianet XiongD
--- NOTE | 2022-10-10 15:07 | MHC.CM.PN ---
PT REPORTS HE LIVES WITH A ROOMMATE THAT HE ASSISTS WITH CARE HE REPORTS HE IS INDEPENDENT, HAS NO DME AND NO SERVICES HE IS COVID [place] HE DECLINES TO COMPLETE A HCP PCP: ANDREW CANTU PT WILL NEED LT IV ABX HE REPORTS FEELING HE CAN DO THIS AT HOME REFERRALS HAVE BEEN MADE FOR [facility] AND [facility] SO FAR, THERE ARE NO [facility] ACCEPTANCES
[2022-10-10 15:13] VITALS: BP 143/76; PULSE 71; RESP 18; TEMP 36; O2SAT 94
[2022-10-10 16:30] LABS: Glucose, Whole Blood 121 mg/dL (60-115)
[2022-10-10 19:17] VITALS: BP 137/83; PULSE 68; RESP 17; TEMP 36.2; O2SAT 95
[2022-10-10 21:01] LABS: Glucose, Whole Blood 257 mg/dL (60-115)
[2022-10-10] MEDS: Atorvastatin Calcium 20 MG TABLET PO (21:31)
[2022-10-10] MEDS: Enoxaparin Sodium 40 MG/0.4 ML SYRINGE SUBCUT (21:31)
[2022-10-10] MEDS: polyethylene glycoL 3350 17 GM POWD.PACK PO (21:31)
[2022-10-10] MEDS: Insulin Glargine,Hum.rec.anlog 100 UNIT/ML 10 ML VIAL 55 UNIT SUBCUT (21:33)
[2022-10-11] MEDS: Piperacillin Sodium/Tazobactam 4.5 GM in 0.9 % Sodium Chloride 100 ML IV ×4 (01:46→18:33)
[2022-10-11 04:00] VITALS: BP 107/61; PULSE 60; RESP 17; TEMP 36.7; O2SAT 94
[2022-10-11 05:36] LABS: Hematocrit 38.5 % (42.0-52.0); Hemoglobin 12.9 g/dl (14.0-18.0); Mean Corpuscular HGB Conc 33.5 g/dl (31.0-36.0); Mean Corpuscular Hemoglobin 32.2 pg (27.0-33.0); Mean Platelet Volume 10.5 fL (9.4-12.4); Platelet Count 224 X10*3/uL (160-400); Red Blood Count 4.01 X10*6/uL (4.60-5.80); Red Cell Distribution Width 12.5 % (11.0-16.0); White Blood Count 6.7 X10*3/uL (4.8-10.8)
[2022-10-11 05:51] LABS: Anion Gap 13 (12-20); Blood Urea Nitrogen 11 mg/dL (9-16); Carbon Dioxide 28 mmol/L (22-29); Chloride 101 mmol/L (96-108); Creatinine Clr Calc Pharmacy 128.1; Estimated Glomerular Filt Rate > 60; Glucose Fasting 150 mg/dL (60-99); Potassium 4.5 mmol/L (3.3-5.1); Sodium 137 mmol/L (135-145)
[2022-10-11] MEDS: Omeprazole 20 MG CAPSULE.DR PO (06:09)
[2022-10-11] MEDS: vancomycin HCL 1,000 MG in 0.9 % Sodium Chloride 250 ML 270 MG IV ×3 (06:09→23:22)
[2022-10-11] MEDS: 0.9 % Sodium Chloride Flush 3 ML SYRINGE IVFLUSH ×3 (07:25→23:22)
[2022-10-11] MEDS: Insulin Lispro 100 UNIT/ML 3 ML VIAL SUBCUT ×4 (07:45→20:42)
[2022-10-11] MEDS: hydroCHLOROthiazide 12.5 MG TABLET PO (07:46)
[2022-10-11] MEDS: methADONE HCl 20 MG/2 ML ORAL.CONC 115 MG PO (07:46)
[2022-10-11] MEDS: lisinopriL 10 MG TABLET PO (07:46)
[2022-10-11 07:58] VITALS: BP 137/79; PULSE 63; RESP 18; TEMP 36.1; O2SAT 98
[2022-10-11 08:00] LABS: Glucose, Whole Blood 165 mg/dL (60-115)
--- NOTE | 2022-10-11 08:56 | HO.PM.IMPN ---
Subjective Subjective Date of Service: 10/11/22 Interval History: cc: toe infection interval history:unchanged Physical Exam Vital Signs: Vital Signs: Last Vital Signs Temp 97.0 F 10/11/22 07:58 Pulse 63 10/11/22 07:58 Resp 18 10/11/22 07:58 BP 137/79 10/11/22 07:58 Pulse Ox 98 10/11/22 07:58 O2 Del Method 10/11/22 07:58 BMI result Body Mass Index 36.6 Const: General: cooperative HEENT: Head: Yes normal to inspection Face and sinus: Yes normal facial exam Mouth: Normal oral and palatal mucosa present Teeth and gingiva: dentition normal Eyes: General: appearance normal, both eyes and all related structures Pupils: Equal, round and reactive pupils present Resp: Effort & Inspection: normal respiratory effort Cardio: Rate: regular rate Rhythm: regular rhythm GI: Palpation (GI): Soft to palpation and nontender : General: Yes no CVA tenderness Back/Spine/Pelvis: Back: no CVA tenderness Skin: General skin exam: no rashes or lesions noted Neuro: General: moves all extremities Cranial nerves: Yes Equal, round and reactive pupils present Extrem: Other: 2.5 cm rounded area under right great toe erythema General: Yes normal to inspection Psych: Appearance: grossly normal Objective Data Active Medications Acetaminophen (Acetaminophen 325 Mg Tablet) 650 mg PO Q6H PRN PRN Reason: Pain, Mild (Pain Scale 1-3) Atorvastatin Calcium (Atorvastatin Calcium 20 Mg Tablet) 20 mg PO BEDTIME [facility] Last Admin: 10/10/22 21:31 Dose: 20 mg Documented By: LUCIO Dextrose (Dextrose 50 % 25 Gm/50 Ml Syringe) 25 gm IVPUSH Q15M PRN; Protocol PRN Reason: per Hypoglycemia Standing Ord. Enoxaparin Sodium (Enoxaparin Sodium 40 Mg/0.4 Ml Syringe) 40 mg SUBCUT BEDTIME [facility] Last Admin: 10/10/22 21:31 Dose: 40 mg Documented By: LUCIO Glucose (Glucose Gel 15 Gm Gel..Gram.) 15 gm PO Q15M PRN; Protocol PRN Reason: per Hypoglycemia Standing Ord. Hydrochlorothiazide (Hydrochlorothiazide 12.5 Mg Tablet) 12.5 mg PO DAILY [facility] Last Admin: 10/11/22 07:46 Dose: 12.5 mg Documented By: RYLAN Piperacillin Sod/Tazobactam (Sod 4.5 gm/ Sodium Chloride) 100 mls @ 200 mls/hr IV Q6H [facility] Last Infusion: 10/11/22 07:54 Dose: 0 mls/hr Documented By: RYLAN Vancomycin HCl 1,000 mg/ (Sodium Chloride) 270 mls @ 270 mls/hr IV Q8H [facility] Last Infusion: 10/11/22 07:25 Dose: 0 mls/hr Documented By: RYLAN Insulin Glargine (Insulin Glargine,Hum.Rec.Anlog 100 Unit/Ml 10 Ml Vial) 55 unit SUBCUT BEDTIME [facility] Last Admin: 10/10/22 21:33 Dose: 55 unit Documented By: LUCIO Insulin Human Lispro (Insulin Lispro 100 Unit/Ml 3 Ml Vial) 0 unit SUBCUT QIDACHS [facility]; Protocol Last Admin: 10/11/22 07:45 Dose: 2 unit Documented By: RYLAN Lisinopril (Lisinopril 10 Mg Tablet) 10 mg PO DAILY [facility] Last Admin: 10/11/22 07:46 Dose: 10 mg Documented By: RYLAN Melatonin (Melatonin 3 Mg Tablet) 6 mg PO BEDTIME PRN PRN Reason: Insomnia Last Admin: 10/08/22 20:52 Dose: 6 mg Documented By: CHARANJIT-OLGA Methadone HCl (Methadone Hcl 20 Mg/2 Ml Oral.Conc) 115 mg PO DAILY [facility] Last Admin: 10/11/22 07:46 Dose: 115 mg Documented By: RYLAN Omeprazole (Omeprazole 20 Mg Capsule.Dr) 20 mg PO DAILY@0630 [facility] Last Admin: 10/11/22 06:09 Dose: 20 mg Documented By: LUCIO Ondansetron HCl (Ondansetron Hcl 4 Mg/2 Ml Vial) 4 mg IVPUSH Q8H PRN PRN Reason: Nausea and Vomiting Pharmacy Consult (Consult Rx Vancomycin Dosing) 1 each MISCELLANE DAILY PRN PRN Reason: Consult order Polyethylene Glycol (Polyethylene Glycol 3350 17 Gm Powd.Pack) 17 gm PO DAILY PRN PRN Reason: Constipation Last Admin: 10/10/22 21:31 Dose: 17 gm Documented By: LUCIO Sodium Chloride (0.9 % Sodium Chloride Flush 3 Ml Syringe) 3 ml IVFLUSH QSHI Last Admin: 10/11/22 07:25 Dose: 3 ml Documented By: RYLAN Labs 10/11/22 04:59 10/11/22 04:59 Labs: Laboratory Results - last 24 hr 10/10/22 10/10/22 10/10/22 11:32 12:50 16:25 MCV MCH MCHC RDW Plt Count MPV Absolute Nucleated RBC Nucleated RBC % (auto) Anion Gap Estim Creat Clear Calc Estimated GFR POC Glucose 154 H 121 H Fasting Glucose Calcium Random Vancomycin 14.0 L 10/10/22 10/11/22 10/11/22 20:56 04:59 04:59 MCV 96.0 MCH 32.2 MCHC 33.5 RDW 12.5 Plt Count 224 MPV 10.5 Absolute Nucleated RBC 0.000 Nucleated RBC % (auto) 0.0 Anion Gap 13 Estim Creat Clear Calc 128.1 Estimated GFR > 60 POC Glucose 257 H Fasting Glucose 150 H Calcium 9.0 Random Vancomycin 10/11/22 07:27 MCV MCH MCHC RDW Plt Count MPV Absolute Nucleated RBC Nucleated RBC % (auto) Anion Gap Estim Creat Clear Calc Estimated GFR POC Glucose 165 H Fasting Glucose Calcium Random Vancomycin Assessment and Plan (1) IDDM (insulin dependent diabetes mellitus): Status: Acute Plan 57-year-old male with pertinent history of insulin-dependent diabetes mellitus, essential hypertension, hyperlipidemia, gastroesophageal reflux disease who presented to the emergency department for worsening right big toe infection. Right 5th toe diabetic foot infection with cellulitis, with imaging concerning for osteomyelitis Failed outpatient p.o. antibiotics.? iv vancomycin and Zosyn.? MRI - concerning for OM ID appreciated, check vascular studies, plan for 6 weeks ertapenem end nov 19, 2022 DM with hyperglycemia basal bolus insulin, monitor poc HTN lisinopril, hctz HLD statin obesity weight loss opiate dependence methadone gerd ppi DVT prophylaxis: Lovenox 40 mg daily Full Code reason for continued hospitalization:iv abx for OM/dfu Time Spent With Patient Time: Total time managing care of this patient today ____ minutes. Quality Stroke Does the patient have a stroke diagnosis?: No VTE Prior VTE?: No VTE Risk Level:: Medical - moderate - high VTE Device Contraindication: Treatment Not Indicated VTE Drug Contraindication: N/A - Med Ordered
[2022-10-11 11:23] LABS: Glucose, Whole Blood 168 mg/dL (60-115)
[2022-10-11 13:53] LABS: Vancomycin Trough 14.7 mcg/mL (10.0-20.0)
--- NOTE | 2022-10-11 13:58 | HE.PHANOTE ---
Vancomycin Dosing Level is therapeutic and stable. Continue current regimen. Next trough 10/12 @ 1300. Shari Galaviz PharmD
[2022-10-11 16:00] VITALS: BP 123/68; PULSE 66; RESP 16; TEMP 36.1; O2SAT 95
[2022-10-11 16:42] LABS: Glucose, Whole Blood 192 mg/dL (60-115)
[2022-10-11 19:27] VITALS: BP 137/67; PULSE 62; RESP 20; TEMP 36.1; O2SAT 96
[2022-10-11 20:25] LABS: Glucose, Whole Blood 236 mg/dL (60-115)
[2022-10-11] MEDS: Melatonin 3 MG TABLET 6 MG PO (20:41)
[2022-10-11] MEDS: Insulin Glargine,Hum.rec.anlog 100 UNIT/ML 10 ML VIAL 55 UNIT SUBCUT (20:41)
[2022-10-11] MEDS: Enoxaparin Sodium 40 MG/0.4 ML SYRINGE SUBCUT (20:41)
[2022-10-11] MEDS: Atorvastatin Calcium 20 MG TABLET PO (20:41)
[2022-10-11] MEDS: polyethylene glycoL 3350 17 GM POWD.PACK PO (20:48)
[2022-10-12] MEDS: Piperacillin Sodium/Tazobactam 4.5 GM in 0.9 % Sodium Chloride 100 ML IV ×4 (01:55→20:55)
[2022-10-12 03:21] VITALS: BP 108/64; PULSE 59; RESP 20; TEMP 36; O2SAT 93
[2022-10-12 05:47] LABS: Creatinine Clr Calc Pharmacy 128.1; Estimated Glomerular Filt Rate > 60
[2022-10-12] MEDS: Omeprazole 20 MG CAPSULE.DR PO (06:05)
[2022-10-12] MEDS: vancomycin HCL 1,000 MG in 0.9 % Sodium Chloride 250 ML 270 MG IV ×3 (06:05→22:52)
[2022-10-12 07:21] VITALS: BP 121/66; PULSE 60; RESP 16; TEMP 36.1; O2SAT 96
[2022-10-12 07:43] LABS: Glucose, Whole Blood 214 mg/dL (60-115)
[2022-10-12] MEDS: Insulin Lispro 100 UNIT/ML 3 ML VIAL SUBCUT ×4 (07:46→20:59)
[2022-10-12] MEDS: polyethylene glycoL 3350 17 GM POWD.PACK PO (07:46)
[2022-10-12] MEDS: hydroCHLOROthiazide 12.5 MG TABLET PO (07:47)
[2022-10-12] MEDS: methADONE HCl 20 MG/2 ML ORAL.CONC 115 MG PO (07:48)
[2022-10-12] MEDS: 0.9 % Sodium Chloride Flush 3 ML SYRINGE IVFLUSH ×3 (07:48→23:55)
[2022-10-12] MEDS: lisinopriL 10 MG TABLET PO (07:59)
--- NOTE | 2022-10-12 11:08 | P.CDIC_ITS ---
CDI Concurrent Query Documentation Clarification: PHYSICIAN'S DOCUMENTATION REQUEST Date of Query: 10/12/22 1108 Patient Name: Bam Wise Admit Date: 10/08/22 Dear Doctor, A review of the medical record indicates additional documentation may be needed. Please review below and update the documentation accordingly. Clinical Indicators: The diagnosis of osteomyelitis was documented on 10/09/22 by infectious disease but is not consistently noted in subsequent documentation. Please confirm or rule out this diagnosis. Risk Factors/Clinical Indicators/Treatments Per ID consult on 10/09: He presents with right great toe wound which is worse over last week and not healing. He has no fever or chills. MRI shows osteomyelitis right great toe. He has MSSA and Group B strep last month wound. Per provider progress note on 10/11: Right 5th toe diabetic foot infection with cellulitis, with imaging concerning for osteomyelitis Per foot MRI on 10/08: Soft tissue ulceration at the plantar/distal aspect of the great toe with underlying osteomyelitis of the distal phalanx. Please clarify the following: * Osteomyelitis was present on admission and is now resolved * Osteomyelitis was present on admission and is still being monitored, evaluated, or treated * Osteomyelitis is/was ruled out * Osteomyelitis is still a likely, suspected, probable diagnosis * Other (please specify) * Unable to determine Use of terms such as suspected, likely, concern for, or probable (associated with a specific diagnosis that is being evaluated, monitored, or treated as if it exists) are acceptable and can be coded in the inpatient setting, when documented at the time of discharge. Thank you, Amara Pablo MS, RN, CCRN Extension: [phone] Please use your independent medical judgment in providing your response. THIS QUERY IS PART OF THE PERMANENT MEDICAL RECORD
[2022-10-12 11:23] LABS: Glucose, Whole Blood 205 mg/dL (60-115)
--- NOTE | 2022-10-12 13:07 | HO.PM.IMPN ---
Subjective Subjective Date of Service: 10/12/22 Interval History: cc: toe infection interval history:unchanged Physical Exam Vital Signs: Vital Signs: Last Vital Signs Temp 97.0 F 10/12/22 07:21 Pulse 60 10/12/22 07:21 Resp 16 10/12/22 07:21 BP 121/66 10/12/22 07:21 Pulse Ox 96 10/12/22 07:21 O2 Del Method 10/12/22 07:21 BMI result Body Mass Index 36.6 Const: General: cooperative HEENT: Head: Yes normal to inspection Face and sinus: Yes normal facial exam Mouth: Normal oral and palatal mucosa present Teeth and gingiva: dentition normal Eyes: General: appearance normal, both eyes and all related structures Pupils: Equal, round and reactive pupils present Resp: Effort & Inspection: normal respiratory effort Cardio: Rate: regular rate Rhythm: regular rhythm GI: Palpation (GI): Soft to palpation and nontender : General: Yes no CVA tenderness Back/Spine/Pelvis: Back: no CVA tenderness Skin: General skin exam: no rashes or lesions noted Neuro: General: moves all extremities Cranial nerves: Yes Equal, round and reactive pupils present Extrem: Other: 2.5 cm rounded area under right great toe erythema General: Yes normal to inspection Psych: Appearance: grossly normal Objective Data Active Medications Acetaminophen (Acetaminophen 325 Mg Tablet) 650 mg PO Q6H PRN PRN Reason: Pain, Mild (Pain Scale 1-3) Atorvastatin Calcium (Atorvastatin Calcium 20 Mg Tablet) 20 mg PO BEDTIME [facility] Last Admin: 10/11/22 20:41 Dose: 20 mg Documented By: ERIC Dextrose (Dextrose 50 % 25 Gm/50 Ml Syringe) 25 gm IVPUSH Q15M PRN; Protocol PRN Reason: per Hypoglycemia Standing Ord. Enoxaparin Sodium (Enoxaparin Sodium 40 Mg/0.4 Ml Syringe) 40 mg SUBCUT BEDTIME [facility] Last Admin: 10/11/22 20:41 Dose: 40 mg Documented By: ERIC Glucose (Glucose Gel 15 Gm Gel..Gram.) 15 gm PO Q15M PRN; Protocol PRN Reason: per Hypoglycemia Standing Ord. Hydrochlorothiazide (Hydrochlorothiazide 12.5 Mg Tablet) 12.5 mg PO DAILY [facility] Last Admin: 10/12/22 07:47 Dose: 12.5 mg Documented By: MAYA Piperacillin Sod/Tazobactam (Sod 4.5 gm/ Sodium Chloride) 100 mls @ 200 mls/hr IV Q6H [facility] Last Infusion: 10/12/22 08:25 Dose: 200 mls/hr Documented By: MAYA Vancomycin HCl 1,000 mg/ (Sodium Chloride) 270 mls @ 270 mls/hr IV Q8H [facility] Last Infusion: 10/12/22 07:13 Dose: 270 mls/hr Documented By: MAYA Insulin Glargine (Insulin Glargine,Hum.Rec.Anlog 100 Unit/Ml 10 Ml Vial) 55 unit SUBCUT BEDTIME [facility] Last Admin: 10/11/22 20:41 Dose: 55 unit Documented By: ERIC Insulin Human Lispro (Insulin Lispro 100 Unit/Ml 3 Ml Vial) 0 unit SUBCUT QIDACHS [facility]; Protocol Last Admin: 10/12/22 12:16 Dose: 4 unit Documented By: MELVIN Lisinopril (Lisinopril 10 Mg Tablet) 10 mg PO DAILY [facility] Last Admin: 10/12/22 07:59 Dose: 10 mg Documented By: MAYA Melatonin (Melatonin 3 Mg Tablet) 6 mg PO BEDTIME PRN PRN Reason: Insomnia Last Admin: 10/11/22 20:41 Dose: 6 mg Documented By: ERIC Methadone HCl (Methadone Hcl 20 Mg/2 Ml Oral.Conc) 115 mg PO DAILY [facility] Last Admin: 10/12/22 07:48 Dose: 115 mg Documented By: MAYA Omeprazole (Omeprazole 20 Mg Capsule.Dr) 20 mg PO DAILY@0630 [facility] Last Admin: 10/12/22 06:05 Dose: 20 mg Documented By: ARI Ondansetron HCl (Ondansetron Hcl 4 Mg/2 Ml Vial) 4 mg IVPUSH Q8H PRN PRN Reason: Nausea and Vomiting Pharmacy Consult (Consult Rx Vancomycin Dosing) 1 each MISCELLANE DAILY PRN PRN Reason: Consult order Polyethylene Glycol (Polyethylene Glycol 3350 17 Gm Powd.Pack) 17 gm PO DAILY PRN PRN Reason: Constipation Last Admin: 10/12/22 07:46 Dose: 17 gm Documented By: MAYA Sodium Chloride (0.9 % Sodium Chloride Flush 3 Ml Syringe) 3 ml IVFLUSH QSHIFT [facility] Last Admin: 10/12/22 07:48 Dose: 3 ml Documented By: MAYA Labs 10/11/22 04:59 10/12/22 05:01 Labs: Laboratory Results - last 24 hr 10/11/22 10/11/22 10/11/22 13:24 16:38 20:20 Estim Creat Clear Calc Estimated GFR POC Glucose 192 H 236 H Vancomycin Trough 14.7 10/12/22 10/12/22 10/12/22 05:01 07:24 11:11 Estim Creat Clear Calc 128.1 Estimated GFR > 60 POC Glucose 214 H 205 H Vancomycin Trough Assessment and Plan (1) IDDM (insulin dependent diabetes mellitus): Status: Acute Plan 57-year-old male with pertinent history of insulin-dependent diabetes mellitus, essential hypertension, hyperlipidemia, gastroesophageal reflux disease who presented to the emergency department for worsening right big toe infection. Right 5th toe diabetic foot infection with cellulitis, with imaging concerning for osteomyelitis Failed outpatient p.o. antibiotics.? iv vancomycin and Zosyn.? MRI - concerning for OM ID appreciated, check vascular studies, plan for 6 weeks ertapenem end nov 19, 2022 plan for picc DM with hyperglycemia basal bolus insulin, monitor poc HTN lisinopril, hctz HLD statin obesity weight loss opiate dependence methadone gerd ppi DVT prophylaxis: Lovenox 40 mg daily Full Code reason for continued hospitalization:iv abx for OM/dfu Time Spent With Patient Time: Total time managing care of this patient today ____ minutes. Quality Stroke Does the patient have a stroke diagnosis?: No VTE Prior VTE?: No VTE Risk Level:: Medical - moderate - high VTE Device Contraindication: Treatment Not Indicated VTE Drug Contraindication: N/A - Med Ordered
[2022-10-12 13:42] LABS: Vancomycin Trough 14.6 mcg/mL (10.0-20.0)
--- NOTE | 2022-10-12 14:56 | MHC.CM.PN ---
EMR REVIEWED, [facility] IN FOR TEACH AND PT DID WELL AND [facility] CAN PROVIDE A NURSE FOR SOC ON WEDNESDAY AFTERNOON. PER HOSPITALIST PICC LINE TO BE PLACED FRIDAY 10/13 AND PT WILL BE ABLE TO D/C AFTER DOSE. PT WILL ALSO RETURN TO [facility] WEDNESDAY AT 10AM FOR HIS WEEKLY APPT. CM WILL CONT TO FOLLOW D/C NEEDS.
[2022-10-12 15:42] VITALS: BP 127/65; PULSE 59; RESP 18; TEMP 36.1; O2SAT 98
[2022-10-12 16:40] LABS: Glucose, Whole Blood 196 mg/dL (60-115)
[2022-10-12 19:39] VITALS: BP 146/79; PULSE 65; RESP 18; TEMP 36.5; O2SAT 95
[2022-10-12 19:52] LABS: Glucose, Whole Blood 269 mg/dL (60-115)
[2022-10-12] MEDS: Atorvastatin Calcium 20 MG TABLET PO (20:58)
[2022-10-12] MEDS: Enoxaparin Sodium 40 MG/0.4 ML SYRINGE SUBCUT (20:59)
[2022-10-12] MEDS: Insulin Glargine,Hum.rec.anlog 100 UNIT/ML 10 ML VIAL 55 UNIT SUBCUT (21:00)
[2022-10-13] MEDS: Piperacillin Sodium/Tazobactam 4.5 GM in 0.9 % Sodium Chloride 100 ML IV ×2 (01:37→07:55)
[2022-10-13 04:00] VITALS: BP 148/74; PULSE 61; RESP 17; TEMP 36.6; O2SAT 95
[2022-10-13] MEDS: Omeprazole 20 MG CAPSULE.DR PO (06:22)
[2022-10-13] MEDS: vancomycin HCL 1,000 MG in 0.9 % Sodium Chloride 250 ML 270 MG IV (06:23)
[2022-10-13 06:52] LABS: Creatinine Clr Calc Pharmacy 133.1; Estimated Glomerular Filt Rate > 60
[2022-10-13 07:26] LABS: Glucose, Whole Blood 118 mg/dL (60-115)
[2022-10-13] MEDS: methADONE HCl 20 MG/2 ML ORAL.CONC 115 MG PO (07:54)
[2022-10-13] MEDS: 0.9 % Sodium Chloride Flush 3 ML SYRINGE IVFLUSH (07:54)
[2022-10-13] MEDS: lisinopriL 10 MG TABLET PO (07:54)
[2022-10-13] MEDS: hydroCHLOROthiazide 12.5 MG TABLET PO (07:54)
[2022-10-13 07:59] VITALS: BP 126/73; PULSE 62; RESP 16; TEMP 35.9; O2SAT 96
[2022-10-13 08:00] VITALS: BP 126/73; PULSE 62; RESP 16; TEMP 35.9; O2SAT 96
--- NOTE | 2022-10-13 11:26 | P.DS_ITS ---
DS: Providers Provider Date of Service: 10/13/22 Date of admission: 10/08/22 00:38 Primary care physician: Valery Berrios MD Consults: 10/08/22 00:44 Consult to Infectious Diseases Routine Consulting Provider: Mary Song Reason for consultation: osteomyelitis 10/08/22 00:51 Consult to Wound Care Routine Consulting Provider: [facility] [place] Wound Care Management Reason for consultation: right fifth toe infection DS: Diagnosis Discharge Diagnosis (1) IDDM (insulin dependent diabetes mellitus): Status: Acute DS: Summary Hospital Course Hospital Course: from initial hpi: Chief Complaint: Right foot infection This is a 57-year-old male with pertinent history of insulin-dependent diabetes mellitus, essential hypertension, hyperlipidemia, gastroesophageal reflux disease who presents to the emergency department for worsening right big toe infection.? Patient states he has had right to infection over the last 2 weeks which has worsened.? It is associated with purulent foul-smelling drainage.? Patient was seen at [facility] and completed 10 day course of doxycycline yesterday.? No improvement with p.o. antibiotics.? Patient was sent by wound clinic for IV antibiotics.? He denies fever, chills, nausea, vomiting, chest discomfort, palpitations, shortness of breath, abdominal pain, changes in urinary or bowel habits.? No trauma.? No similar complaints in the past.? States he is compliant with his insulin and p.o. antihypertensives. In the emergency department, x-ray concerning for osteomyelitis, hospital course: patient was admitted for right 5th toe diabetic foot infection with cellulitis with imaging concerning for osteomyelitis that failed outpatient p.o. antibiotics. He was treated with IV vancomycin and Zosyn, cultures were negative, MRI confirmed osteomyelitis. vascular studies were unremarkable. He was seen by infectious disease recommended 6 weeks of IV ertapenem which will be completed at home via PICC line. For patient's diabetes with hyperglycemia he w as given basal bolus insulin. For hypertension use continue on lisinopril and hydrochlorothiazide. For hyperlipidemia is continue statin. For opiod dependence he was continue on methadone. For obesity weight loss is recommended. For GERD he was continued on PPI. Patient is feeling better and he will be discharged home. Time Spent with Patient Time attestation: Total time managing care of this patient today ____ minutes. Discharge coordination time: Greater than 30 minutes Quality: Safe Use of Opioids Does Pt have an Active Cancer Diagnosis on the Problem List?: No Quality: Stroke Does the patient have a stroke diagnosis?: No Physical Exam Vital Signs: Vital Signs: Last Vital Signs Temp 96.6 F L 10/13/22 08:00 Pulse 62 10/13/22 08:00 Resp 16 10/13/22 08:00 BP 126/73 10/13/22 08:00 Pulse Ox 96 10/13/22 08:00 O2 Del Method 10/13/22 08:00 BMI result Body Mass Index 36.6 Const: General: cooperative HEENT: Head: Yes normal to inspection Face and sinus: Yes normal facial exam Mouth: Normal oral and palatal mucosa present Teeth and gingiva: dentition normal Eyes: General: appearance normal, both eyes and all related structures Pupils: Equal, round and reactive pupils present Resp: Effort & Inspection: normal respiratory effort Cardio: Rate: regular rate Rhythm: regular rhythm GI: Palpation (GI): Soft to palpation and nontender : General: Yes no CVA tenderness Back/Spine/Pelvis: Back: no CVA tenderness Skin: General skin exam: no rashes or lesions noted Neuro: General: moves all extremities Cranial nerves: Yes Equal, round and reactive pupils present Extrem: Other: 2.5 cm rounded area under right great toe erythema General: Yes normal to inspection Psych: Appearance: grossly normal DS: Data Data Completed and Pending Labs on day of discharge: Laboratory Results - last 24 hr 10/12/22 10/12/22 10/12/22 13:08 16:36 19:49 Creatinine Estim Creat Clear Calc Estimated GFR POC Glucose 196 H 269 H Vancomycin Trough 14.6 10/13/22 10/13/22 05:04 07:18 Creatinine 0.78 Estim Creat Clear Calc 133.1 Estimated GFR > 60 POC Glucose 118 H Vancomycin Trough Discharge Plan Discharge Anticipated Discharge Date/Time: 10/13/22 11:18 Patient Disposition: Home Health Service Discharge Diagnosis: OM Referrals: Valery Berrios MD [Primary Care Provider] - 1 Week Mary Song MD [Physician] - 1 Week Discharge Medications: New ertapenem [Invanz] 1 gram Recon Soln 1 g IV DAILY Qty: 0 0RF Continued methadone 5 mg/5 mL Syringe 115 mg PO DAILY simvastatin 40 mg tablet 1 tab PO BEDTIME omeprazole 20 mg capsule,delayed release(DR/EC) 1 cap PO DAILY lisinopril-hydrochlorothiazide 10-12.5 mg tablet 1 tab PO DAILY insulin aspart U-100 100 unit/mL (3 mL) insulin pen 15 - 18 unit subcut TIDAC insulin glargine [Lantus Solostar U-100 Insulin] 100 unit/mL (3 mL) insulin pen 60 unit subcut BEDTIME albuterol sulfate [ProAir HFA] 90 mcg/actuation HFA aerosol inhaler 2 puff PO Q4-6H PRN (Reason: Wheezing) Discharge Orders: Discharge Order (Routine); Ordered 10/13/22 Ordered By: Arnoldo Moulton Diet: Diabetic diet Activity on Discharge: As tolerated Stand Alone Forms: Patient Portal Discharge page Care Plan Goals: recovery Health Concerns: om Plan of Treatment: iv ertapenem until 11/19/22, follow up ID Assessment: see above
--- NOTE | 2022-10-13 12:37 | HO.PICC ---
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 Following completion of Onia Protocol the skin and soft tissues were anesthetized with 1% Lidocaine plain. Using ultrasound guidance, the right basilic vein access was obtained. Over an 0.018 wire through peel-away sheath, a A PASV single lumen 4 [place] PICC line was positioned. Catheter length is 48 cm internal length, 0 cm external length, for a total trimmed length of 48 cm. The procedure was performed in S272. Tip verification was performed by Benji Luke with Dony 3CG. Tip located in SVC. Ultrasound was used to document vein patency and for needle entry. A formal ultrasound picture and cardiac rhythm strip was recorded. Vascular Echocardiograph Technician has released the line for use and it is currently dressed with a StatLock, Tegaderm, and CHG disc. Verification has been performed for blood return and line patency. Arm Circumference: 31 cm Equipment: utoopia PowerPICC SOLO Catheter Type: 4 [place] PASV single lumen Lot #: [id number]
[2022-10-13 13:03] LABS: Glucose, Whole Blood 171 mg/dL (60-115)
[2022-10-13] MEDS: Insulin Lispro 100 UNIT/ML 3 ML VIAL SUBCUT (13:13)
--- NOTE | 2022-10-13 13:19 | MHC.CM.PN ---
PT MEDICALLY CLEARED FOR D/C AFTER DOSE OF ERTAPENEM THROUGH NEW PICC LINE, [facility] UPDATED AND WILL PROVIDE NURSE FOR PT, PT TO ARRANGE TRANSPORT
[2022-10-13] MEDS: Ertapenem Sodium 1 GM in 0.9 % Sodium Chloride 50 ML IV (13:21)
[2022-10-13 13:48] LABS: Vancomycin Random 14.8 mcg/mL (15-20)
[2022-10-13 14:52] VITALS: BP 155/78; PULSE 70; RESP 17; TEMP 35.9; O2SAT 95
[2022-10-13 16:01] LABS: Glucose, Whole Blood 233 mg/dL (60-115)
== END 2022-10-13 17:16 | disposition home health service (06) | DRG 344 ==
LOC: HO.ED 10-08 00:14 → HO.EDOVER 10-08 00:43 → HO.S3 10-09 12:07
PROVIDERS: Physician Assistant; Admitting Provider Student in an Organized Health Care Education/Training Program; Emergency Provider Emergency Medicine; PCP Internal Medicine; Visit Provider Internal Medicine
DX: E11.69 Type 2 diabetes mellitus with other specified complication (principal); M86.9 Osteomyelitis, unspecified; E11.65 Type 2 diabetes mellitus with hyperglycemia; L03.031 Cellulitis of right toe; E66.9 Obesity, unspecified; L03.90 Cellulitis, unspecified; E78.2 Mixed hyperlipidemia; F11.20 Opioid dependence, uncomplicated; F17.210 Nicotine dependence, cigarettes, uncomplicated; K21.9 Gastro-esophageal reflux disease without esophagitis; Z68.36 Body mass index [BMI] 36.0-36.9, adult; Z20.822 Contact with and (suspected) exposure to COVID-19; Z71.6 Tobacco abuse counseling; Z91.041 Radiographic dye allergy status; Z79.4 Long term (current) use of insulin; Z79.899 Other long term (current) drug therapy
CPT/HCPCS: 36415; 36573; 73630; 73720; 80048; 80076; 80202; 82565; 82947; 83605; 83735; 83880; 85025; 85027; 85652; 86140; 87040; 87635; 93923; 93925; 99285; A9585; C1751; J1335; J1650; J2543; J3370; J3371

== ENCOUNTER 2022-11-13 12:03 | Outpatient (REF) | payer MEDICAID, SELFPAY ==
--- NOTE | ~2022-11-13 | US_ITS ---
EXAMINATION: US RETROPERITONEAL LIMITED (RENAL ONLY) CLINICAL INFORMATION: Dysuria. COMPARISON: Ultrasound abdomen 02/03/2019, CT abdomen 01/19/2007, x-ray KUB 11/05/2006 TECHNIQUE: Real-time imaging of the kidneys. FINDINGS: RIGHT KIDNEY: 12.7 x 6.9 x 6.4 cm (SAG x AP x TRV). The kidney is normal in size, contour, and echogenicity. Renal cortical thickness is normal. No renal calculi or hydronephrosis. Benign-appearing 1.4 cm renal cyst, no follow-up imaging recommended. 1.3 x 0.9 x 1.6 cm echogenic avascular right renal lesion versus possible renal cortical defect. LEFT KIDNEY: 13.6 x 7.6 x 5.0 cm (SAG x AP x TRV). The kidney is normal in size, contour, and echogenicity. Renal cortical thickness is normal. No renal calculi or hydronephrosis. Likely benign 2.8 cm renal cyst with mural calcification, no follow-up imaging recommended. US/US renal BI IMPRESSION: A 1.6 cm echogenic avascular right renal lesion, which could potentially reflect an angiomyolipoma although other etiology cannot be excluded versus possible renal cortical defect. In size recommend definitive characterization with CT or MR renal mass protocol.
== END 2022-11-13 12:04 | disposition home or self-care (01) ==
LOC: HO.US 12:03
PROVIDERS: PCP Internal Medicine; Visit Provider Internal Medicine
DX: R30.0 Dysuria (principal)
CPT/HCPCS: 76775

== ENCOUNTER → 2022-11-20 11:04 | Outpatient (BNVA) | payer MEDICAID, SELFPAY | PROVIDERS: PCP Internal Medicine; Visit Provider Internal Medicine | DX: M86.9 Osteomyelitis, unspecified (principal) | CPT/HCPCS: 99212 ==

== ENCOUNTER → 2022-12-17 12:17 | Outpatient (BNVA) | payer MEDICAID, SELFPAY | PROVIDERS: PCP Internal Medicine; Visit Provider Internal Medicine Endocrinology, Diabetes & Metabolism | DX: E11.65 Type 2 diabetes mellitus with hyperglycemia (principal); Z79.4 Long term (current) use of insulin | CPT/HCPCS: 82947; 83036; 99202 ==

== ENCOUNTER 2022-12-31 11:06 | Outpatient (REF) | payer MEDICAID, SELFPAY ==
[2022-12-31 12:22] LABS: Cholesterol 159 mg/dL; HDL Cholesterol 34 mg/dL; LDL Cholesterol Calculated 107 mg/dl; Triglycerides 90 mg/dL
[2022-12-31 15:08] LABS: Creatinine Urine 103.92 mg/dL
== END 2022-12-31 11:07 | disposition home or self-care (01) ==
LOC: HO.LAB 11:06
PROVIDERS: PCP Internal Medicine; Visit Provider Internal Medicine Endocrinology, Diabetes & Metabolism
DX: E11.65 Type 2 diabetes mellitus with hyperglycemia (principal)
CPT/HCPCS: 36415; 80061; 82043

== ENCOUNTER → 2023-02-17 09:36 | Outpatient (BNVA) | payer MEDICAID, SELFPAY | PROVIDERS: PCP Internal Medicine; Visit Provider Dietitian, Registered | DX: E11.65 Type 2 diabetes mellitus with hyperglycemia (principal) | CPT/HCPCS: 97802 ==

== ENCOUNTER → 2023-02-25 09:27 | Outpatient (BNVA) | payer MEDICAID, SELFPAY | PROVIDERS: PCP Internal Medicine; Visit Provider Registered Nurse Diabetes Educator | DX: E11.65 Type 2 diabetes mellitus with hyperglycemia (principal) | CPT/HCPCS: 99211 ==

== ENCOUNTER 2023-03-10 10:56 | Outpatient (REF) | payer MEDICAID, SELFPAY ==
--- NOTE | ~2023-03-10 | XR_ITS ---
EXAMINATION: XR KNEE, RIGHT CLINICAL INFORMATION: Chronic pain. COMPARISON: Right knee radiographs dated 11/14/2020, a 05/22 and 03/29/2017. TECHNIQUE: Tunnel, lateral, and sunrise views of the right knee are submitted. FINDINGS: Bony alignment and mineralization are normal. The lateral, medial and patellofemoral joint space compartments are well-maintained. No fracture, dislocation or significant joint effusion is seen. Within the anterior proximal tibial cortex, a 1.4 x 0.5 x 0.4 cm lytic focus is seen, which is more prominent than was seen previously. This shows a fairly sharp transition zone. No focal soft tissue swelling, gas or foreign body is seen. XR/XR knee LT 3V IMPRESSION: 1. A 1.4 cm lytic focus is now appreciated within the proximal right tibial cortex, more pronounced than seen on prior examinations. If clinically indicated (i.e. history of known malignancy or focal pain at this location, this can be more fully evaluated with MRI or a nuclear bone scan. 2. No right knee fracture, dislocation or joint effusion is seen. EXAMINATION: XR KNEE, LEFT CLINICAL INFORMATION: Chronic pain. COMPARISON: Radiographs dated 05/11/2019. TECHNIQUE: AP, lateral, and both oblique views of the left knee. FINDINGS: Bony alignment and mineralization are normal. No fracture, dislocation or significant joint effusion is seen. The lateral, medial and patellofemoral joint space compartments are well-maintained. There is mild irregularity and peripheral osteophyte formation of the articular surface of the patella. No focal soft tissue slight, gas or foreign body is seen. IMPRESSION: 1. No left knee fracture, dislocation or significant joint effusion is seen. 2. There is mild osteoarthritic change of the left patellofemoral compartment.
--- NOTE | ~2023-03-10 | XR_ITS ---
EXAMINATION: XR HIP, LEFT CLINICAL INFORMATION: Left hip pain Chronic bilateral knee and left hip pain COMPARISON:. Left hip 05/11/2019 TECHNIQUE: Two views of the left hip. AP view of the pelvis. FINDINGS: No fracture or dislocation. Bony density about the superior acetabulum rim may be sequela of previous labral tear, unchanged. Alignment is anatomic. There is some spurring about the hip joint. There is moderate narrowing of the superior-lateral aspect of the cartilage space. The cingulate joints are within normal limits. There is mild degenerative change of the pubic symphysis. There are degenerative changes in the lower lumbar spine. XR/XR hip LT w PEL1V IMPRESSION: Moderate osteoarthritis of the left hip.
--- NOTE | ~2023-03-10 | XR_ITS ---
EXAMINATION: XR KNEE, RIGHT CLINICAL INFORMATION: Chronic pain. COMPARISON: Right knee radiographs dated 11/14/2020, a 05/22 and 03/29/2017. TECHNIQUE: Tunnel, lateral, and sunrise views of the right knee are submitted. FINDINGS: Bony alignment and mineralization are normal. The lateral, medial and patellofemoral joint space compartments are well-maintained. No fracture, dislocation or significant joint effusion is seen. Within the anterior proximal tibial cortex, a 1.4 x 0.5 x 0.4 cm lytic focus is seen, which is more prominent than was seen previously. This shows a fairly sharp transition zone. No focal soft tissue swelling, gas or foreign body is seen. XR/XR knee RT 3V IMPRESSION: 1. A 1.4 cm lytic focus is now appreciated within the proximal right tibial cortex, more pronounced than seen on prior examinations. If clinically indicated (i.e. history of known malignancy or focal pain at this location, this can be more fully evaluated with MRI or a nuclear bone scan. 2. No right knee fracture, dislocation or joint effusion is seen. EXAMINATION: XR KNEE, LEFT CLINICAL INFORMATION: Chronic pain. COMPARISON: Radiographs dated 05/11/2019. TECHNIQUE: AP, lateral, and both oblique views of the left knee. FINDINGS: Bony alignment and mineralization are normal. No fracture, dislocation or significant joint effusion is seen. The lateral, medial and patellofemoral joint space compartments are well-maintained. There is mild irregularity and peripheral osteophyte formation of the articular surface of the patella. No focal soft tissue slight, gas or foreign body is seen. IMPRESSION: 1. No left knee fracture, dislocation or significant joint effusion is seen. 2. There is mild osteoarthritic change of the left patellofemoral compartment.
== END 2023-03-10 10:57 | disposition home or self-care (01) ==
LOC: HO.XRAY 10:56
PROVIDERS: PCP Internal Medicine; Visit Provider Internal Medicine
DX: M25.562 Pain in left knee (principal); M25.561 Pain in right knee; M25.552 Pain in left hip
CPT/HCPCS: 73502; 73562

== ENCOUNTER 2023-03-22 18:50 | Inpatient (IN) | payer MEDICAID, SELFPAY ==
--- NOTE | ~2023-03-22 | XR_ITS ---
EXAMINATION: XR FOOT, RIGHT CLINICAL INFORMATION: Great toe osteomyelitis COMPARISON: 10/07/2022 TECHNIQUE: AP, lateral, and oblique views of the right foot. FINDINGS: There is significant soft tissue swelling about the first and fifth toes. There is new bony destructive change to the first distal phalanx concerning for focal osteomyelitis in this location. Subtle overlying skin defect cannot be excluded. More chronic appearing erosive changes to the fifth MTP joint and adjacent fifth metatarsal head similar to the prior study. No acute fracture or dislocation. XR/XR foot RT 2V IMPRESSION: Significant soft tissue swelling about the first and fifth toes. There is new bony destructive change to the first distal phalanx concerning for focal osteomyelitis in this location. Chronic appearing erosive changes to the fifth MTP joint may represent acute on chronic osteomyelitis in this location.
[2023-03-22 19:13] VITALS: BP 126/79; BP 138/75; PULSE 88; PULSE 90; RESP 20; TEMP 37.1; O2SAT 95; O2SAT 98; BMI 34.0
--- NOTE | 2023-03-22 19:17 | ED_ITS ---
HPI - General Adult General Chief complaint: Extremity Injury, Lower Stated complaint: ble wounds w/redness/pain per ems Time Seen by Provider: 03/22/23 19:12 Source: patient and EMS Mode of arrival: EMS Limitations: no limitations History of Present Illness HPI narrative: 57-year-old male with history of diabetes and diabetic foot patient been getting right foot infection and history of osteomyelitis of the right great toe/right foot. Mild discharge from the right toe, no fever, no chills. Patient is complaining of increased pain to the right lower extremity. Related Data Home Medications Medication Instructions Recorded Confirmed albuterol sulfate 90 mcg/actuation 2 puff PO Q4-6H PRN Wheezing 01/01/22 12/17/22 aerosol inhaler (ProAir HFA) insulin aspart U-100 100 unit/mL 15 - 18 unit subcut TIDAC 01/01/22 12/17/22 (3 mL) subcutaneous pen insulin glargine 100 unit/mL (3 60 unit subcut BEDTIME 01/01/22 12/17/22 mL) subcutaneous pen (Lantus Solostar U-100 Insulin) lisinopril 10 1 tab PO DAILY 01/01/22 12/17/22 mg-hydrochlorothiazide 12.5 mg tablet omeprazole 20 mg capsule,delayed 1 cap PO DAILY 01/01/22 12/17/22 release simvastatin 40 mg tablet 1 tab PO BEDTIME 01/01/22 12/17/22 methadone 5 mg/5 mL oral syringe 115 mg PO DAILY 10/08/22 12/17/22 (FOR ORAL USE ONLY) blood sugar diagnostic (FreeStyle #10 ea 12/17/22 12/17/22 Lite Strips) flash glucose scanning reader #1 ea 12/17/22 12/17/22 (FreeStyle [place] 2 [place]) flash glucose sensor (FreeStyle #1 ea 12/17/22 12/17/22 Oumar 2 Sensor kit) lancets 33 gauge (TRUEplus Lancets) #100 ea 12/17/22 12/17/22 pen needle, diabetic 32 gauge x #50 ea 12/17/22 12/17/22 1/ (Easy Touch) Previous Rx's Medication Instructions Recorded ertapenem 1 gram solution for 1 g IV DAILY #0 ea 10/13/22 injection (Invanz) doxycycline hyclate 100 mg tablet 100 mg PO BID 30 days #60 tabs 11/21/22 Allergies Allergy/AdvReac Type Severity Reaction Status Date / Time bee venom protein (honey bee) Allergy Severe Anaphylaxis Verified 11/20/22 11:42 erythromycin base Allergy Intermediate Rash Verified 11/20/22 11:42 Iodinated Contrast Media AdvReac Intermediate Shortness Verified 11/20/22 11:42 of Breath Review of Systems Review of Systems: All other systems are reviewed and are negative Constitutional: Reports as per HPI and Reports no additional constitutional complaints Eyes: Reports as per HPI and Reports no additional eye complaints Reports system reviewed and no additional complaints, except as documented Cardiovascular: Reports as per HPI and Reports no additional cardiovascular complaints Respiratory: Reports as per HPI and Reports no additional respiratory complaints Gastrointestinal: Reports as per HPI and Reports no additional gastrointestinal complaints Genitourinary: Reports no additional female genitourinary complaints Musculoskeletal: Reports no additional musculoskeletal complaints Skin/Breast: Reports system reviewed and no additional complaints, except as docu Psychiatric: Reports no additional psychiatric complaints Endocrine: Reports no additional endocrine complaints Hematologic/Lymphatic: Reports no additional hematologic/lymphatic complaints Allergic/Immunologic: Reports no additional allergic/immunologic complaints Reports system reviewed and no additional complaints, except as documented and Reports Abnormal speech present [facility] Past Medical History Medical History Asthma Cellulitis High cholesterol HTN (hypertension) IDDM (insulin dependent diabetes mellitus) Kidney stones Osteomyelitis Uncontrolled diabetes mellitus with hyperglycemia Surgical History History of lithotripsy Social History Social History Household Members: Friend(s) Housing: House Do you presently have visiting nurse or other home services: No (Had wound care visiting nurses at some point but discontinued) Patient Tobacco Use Status: Current someday Tobacco user Tobacco use type: Cigarette Smoked in Last 30 Days: No Use of substances other than those prescribed or required for medical reasons: No Substance Use Type: Crack/Cocaine and Marijuana Any prior treatment program specific to substance use: Yes Advance Directives: No Advance Directives Information Provided: No service: No Current occupational status: unemployed Physical Exam ED Vital Signs: Vital Signs - 24 hr 03/22/23 19:13 03/22/23 19:39 Temperature 98.8 F 100.6 F H Pulse Rate 88 84 Respiratory Rate 20 15 Blood Pressure 138/75 139/68 Pulse Oximetry 98 98 Oxygen Delivery Method Room Air Room Air BMI result Body Mass Index 34.0 Vital signs have been reviewed as appeared to be correct. Blood pressure normal. Heart rate normal. Respiration rate normal. Temperature normal. Oxygen saturation normal. Appearance: Alert. Oriented X3. No acute distress. Head: Normal external exam. Normocephalic. Atraumatic. No [place]oya signs noted. No raccoon eyes noted Eyes: PERRLA. EOMI. Conjunctiva and sclera normal. Eyelids normal. ENT: TM's Normal. Pharynx normal. Uvula midline. Moist mucous membranes. No trismus noted. No drooling noted. No muffled voice noted. Neck: Normal inspection. Neck supple. FROM. No adenopathy. Thyroid Normal. No meningeal signs. No neck mass noted. CVS: Normal heart rate and rhythm. Heart sound normal. No murmurs noted. Pulses normal throughout. Respiratory: No respiratory distress. Painless inspiration. Breath sounds normal. No wheezes/rales/rhonchi noted. Chest nontender. No accessory muscle usage noted or decreased air movement noted. Abdomen: Soft and nontender. Bowel sounds normal in all 4 quadrants. No distention noted. No organomegaly noted. No visible injury noted. Back: No CVA tenderness. Full range of motion noted. Skin: Skin warm and dry. Normal skin color. Normal skin turgor. No rashes/lesions/lacerations noted. Extremities: A mild redness and hotness over right leg, redness and tenderness over the right great toe with ulcerative lesion at the dorsum of the great toe. Neuro: Oriented X 3. Cranial nerve exam: II-XII are grossly intact No motor deficit. No sensory deficit. Reflexes normal. Course Course Course Narrative: 57-year-old male diabetic with history of osteomyelitis came in with right great toe osteomyelitis, patient do not meet criteria for sepsis, will cover with Zosyn and vancomycin. Medications Administered Discontinued Medications Generic Name Dose Route Start Last Admin Trade Name Freq PRN Reason Stop Dose Admin Sodium Chloride 1,000 mls @ 999 mls/hr 03/22/23 19:17 03/22/23 20:15 Ns IV 03/22/23 20:17 999 mls/hr .Q1H1M ONE Administration Piperacillin Sod/Tazobactam 50 mls @ 100 mls/hr 03/22/23 19:19 03/22/23 20:15 Sod 3.375 gm/ Sodium Chloride IV 03/22/23 19:48 100 mls/hr ONCE ONE Administration Medical Decision Making Differential Diagnosis Differential Diagnoses: The differential diagnosis associated with the presentation includes (Osteomyelitis, cellulitis of the right foot, severe sepsis, septic shock, electrolyte abnormality, severe anemia.) Admission/Observation Consideration of admission/observation: Escalation of care including admission/observation considered Consult Healthcare Provider Management of the patient was discussed with: Hospitalist (Dr. Kitchen) Lab Data MDM Lab Attestation statement: I reviewed the patient's lab results. 03/22/23 20:01 03/22/23 20:01 Labs: Lab Results 03/22/23 03/22/23 03/22/23 Range/Units 20:01 20:01 20:01 WBC 9.4 (4.8-10.8) X10*3/uL RBC 3.35 L (4.60-5.80) X10*6/uL Hgb 10.3 L D (14.0-18.0) g/dl Hct 30.6 L D (42.0-52.0) % MCV 91.3 (80.0-98.0) fL MCH 30.7 (27.0-33.0) pg MCHC 33.7 (31.0-36.0) g/dl RDW 13.1 (11.0-16.0) % Plt Count 230 (160-400) X10*3/uL MPV 9.8 (9.4-12.4) fL Immature Gran % (Auto) 0.2 (0.0-0.4) % Neut % (Auto) 68.2 (45-73) % Lymph % (Auto) 14.7 L (20-40) % [place] % (Auto) 14.9 H (2-11) % Eos % (Auto) 1.5 (0-4) % Baso % (Auto) 0.5 (0-2) % Lymph # (Auto) 1.4 (1.2-4.9) X10*3/uL [place] # (Auto) 1.4 H (0.1-1.2) X10*3/uL Eos # (Auto) 0.1 (0.0-0.4) X10*3/uL Baso # (Auto) 0.1 (0.0-0.2) X10*3/uL Abs Immat Gran (auto) 0.02 (0.00-0.03) X10*3/uL Absolute Neuts (auto) 6.4 (2.0-8.3) x10*3/uL Absolute Nucleated RBC 0.000 (0.0-0.012) X10*3/uL Nucleated RBC % (auto) 0.0 (0.0-0.2) /100WBC Sodium 135 (135-145) mmol/L Potassium 4.6 (3.3-5.1) mmol/L Chloride 100 (96-108) mmol/L Carbon Dioxide 28 (22-29) mmol/L Anion Gap 12 (12-20) BUN 19 H (9-16) mg/dL Creatinine 0.82 (0.5-1.4) mg/dL Estim Creat Clear Calc 121.9 Estimated GFR > 60 Random Glucose 278 H (60-115) mg/dL Lactic Acid 1.1 (0.5-2.0) mmol/L Calcium 9.5 (8.4-10.2) mg/dL Total Bilirubin 0.4 (0.0-1.0) mg/dL Direct Bilirubin 0.2 (0.0-0.5) mg/dL AST 15 (5-37) U/L ALT 14 (0-40) U/L Alkaline Phosphatase 95 (39-117) U/L Total Protein 7.3 (6.5-8.0) g/dL Albumin 3.4 L (3.5-5.0) g/dL Lipase 15 (8-78) U/L Independent Interpretation I performed an independent interpretation of an: Plain X-Ray (Right foot:Significant soft tissue swelling about the first and fifth toes. There is new bony destructive change to the first distal phalanx concerning for focal osteomyelitis in this location. Chronic appearing erosive changes to the fifth MTP joint may represent acute on chronic osteomyelitis in t) Radiology Impression Discussion of test interpretation with radiology: I have reviewed the radiologist's reading. Chronic Conditions Patient?s care impacted by: Diabetes Discharge Plan Discharge Clinical Impression: Osteomyelitis, Osteomyelitis of great toe of right foot Patient Disposition: Home, Self-Care Prescriptions: No Action methadone 5 mg/5 mL Syringe 115 mg PO DAILY ertapenem [Invanz] 1 gram Recon Soln 1 g IV DAILY Qty: 0 0RF simvastatin 40 mg tablet 1 tab PO BEDTIME omeprazole 20 mg capsule,delayed release(DR/EC) 1 cap PO DAILY lisinopril-hydrochlorothiazide 10-12.5 mg tablet 1 tab PO DAILY insulin aspart U-100 100 unit/mL (3 mL) insulin pen 15 - 18 unit subcut TIDAC insulin glargine [Lantus Solostar U-100 Insulin] 100 unit/mL (3 mL) insulin pen 60 unit subcut BEDTIME albuterol sulfate [ProAir HFA] 90 mcg/actuation HFA aerosol inhaler 2 puff PO Q4-6H PRN (Reason: Wheezing) (DME) FreeStyle Oumar 2 Sensor Kit See Rx Instructions .ROUTE Q2W Qty: 1 Rx Instructions: As directed (DME) pen needle, diabetic [Easy Touch] 32 gauge x 1/4 needle See Rx Instructions .ROUTE .MEDSUPPLY Qty: 50 Rx Instructions: As directed 5 times a day (DME) lancets [TRUEplus Lancets] 33 gauge misc See Rx Instructions .ROUTE QID Qty: 100 Rx Instructions: As directed 4 times a day (DME) FreeStyle Lite Strips Strip See Rx Instructions .ROUTE QID Qty: 10 Rx Instructions: As directed 4 times a day (DME) FreeStyle Oumar 2 [place] Misc See Rx Instructions .ROUTE DAILY Qty: 1 Rx Instructions: As directed doxycycline hyclate 100 mg tablet 100 mg PO BID 30 Days Qty: 60 1RF
[2023-03-22 19:39] VITALS: BP 139/68; PULSE 84; RESP 15; TEMP 38.1; O2SAT 98
--- NOTE | 2023-03-22 20:05 | MHC.EDTECH ---
patient vitals sign taken blood drawn ,lactic acid including ,1st set and 2nd set blood culture drawn and sent to lab ,RN Annie is aware of patient high temp ,patient was given a blanket ,pt in good sprits asked for remove to watch television ,RN in room administering fluids .
[2023-03-22 20:08] LABS: MANUAL DIFF FLAG NO
[2023-03-22 20:10] LABS: Basophils Absolute Auto 0.1 X10*3/uL (0.0-0.2); Basophils Percent Auto 0.5 % (0-2); Eosinophils Absolute Auto 0.1 X10*3/uL (0.0-0.4); Eosinophils Percent Auto 1.5 % (0-4); Hematocrit 30.6 % (42.0-52.0); Hemoglobin 10.3 g/dl (14.0-18.0); Imm Gran Abs Auto 0.02 X10*3/uL (0.00-0.03); Imm Gran Pct Auto 0.2 % (0.0-0.4); Lymphocytes Absolute Auto 1.4 X10*3/uL (1.2-4.9); Lymphocytes Percent Auto 14.7 % (20-40); Mean Corpuscular HGB Conc 33.7 g/dl (31.0-36.0); Mean Corpuscular Hemoglobin 30.7 pg (27.0-33.0); Mean Corpuscular Volume 91.3 fL (80.0-98.0); Mean Platelet Volume 9.8 fL (9.4-12.4); Monocytes Absolute Auto 1.4 X10*3/uL (0.1-1.2); Monocytes Percent Auto 14.9 % (2-11); Neutrophils Absolute Auto 6.4 x10*3/uL (2.0-8.3); Neutrophils Percent Auto 68.2 % (45-73); Platelet Count 230 X10*3/uL (160-400); Red Blood Count 3.35 X10*6/uL (4.60-5.80); Red Cell Distribution Width 13.1 % (11.0-16.0); White Blood Count 9.4 X10*3/uL (4.8-10.8)
[2023-03-22] MEDS: Piperacillin Sodium/Tazobactam 3.375 GM in 0.9 % Sodium Chloride 50 ML IV (20:15)
[2023-03-22] MEDS: 0.9 % Sodium Chloride 1,000 ML 999 ML IV (20:15)
[2023-03-22 20:20] LABS: Lactic Acid 1.1 mmol/L (0.5-2.0)
[2023-03-22 20:24] LABS: Alanine Aminotransferase 14 U/L (0-40); Albumin Level 3.4 g/dL (3.5-5.0); Alkaline Phosphatase 95 U/L (39-117); Anion Gap 12 (12-20); Aspartate Amino Transferase 15 U/L (5-37); Bilirubin Direct 0.2 mg/dL (0.0-0.5); Bilirubin Total 0.4 mg/dL (0.0-1.0); Blood Urea Nitrogen 19 mg/dL (9-16); Calcium 9.5 mg/dL (8.4-10.2); Carbon Dioxide 28 mmol/L (22-29); Chloride 100 mmol/L (96-108); Creatinine Clr Calc Pharmacy 121.9; Estimated Glomerular Filt Rate > 60; Glucose Random 278 mg/dL (60-115); Lipase 15 U/L (8-78); Potassium 4.6 mmol/L (3.3-5.1); Sodium 135 mmol/L (135-145); Total Protein 7.3 g/dL (6.5-8.0)
--- NOTE | 2023-03-22 21:02 | P.HPHOSP_ITS ---
History of Present Illness Date of Service: 03/22/23 Chief Complaint: right foot infection This is a 57-year-old male with pertinent history of insulin-dependent diabetes mellitus, essential hypertension, hyperlipidemia, gastroesophageal reflux disease who presents to the emergency department for worsening right leg redness, warmth and drainage from right back toe.? Patient states he noticed swelling of right leg yesterday and it has been worsening. Has associated nausea and fevers /chills.?Patient also complaints of purulent foul-smelling drainage from right big toe.?He denies vomiting, chest discomfort, palpitations, shortness of breath, abdominal pain, changes in urinary or bowel habits.? No trauma.?States he is compliant with his insulin and p.o. antihypertensives. In the emergency department, x-ray concerning for osteomyelitis, Review of Systems 2 Constitutional: Constitutional: Reports chills and Reports fever(s) Cardiovascular: Cardiovascular: Reports no additional cardiovascular complaints Respiratory: Respiratory: Reports no additional respiratory complaints Gastrointestinal: Gastrointestinal: Reports nausea Genitourinary: Genitourinary: Reports no additional male genitourinary complaints Musculoskeletal: Musculoskeletal: Reports joint swelling PMFSH Medical History Asthma Cellulitis High cholesterol HTN (hypertension) IDDM (insulin dependent diabetes mellitus) Kidney stones Osteomyelitis Uncontrolled diabetes mellitus with hyperglycemia Pertinent family history: No family history of early CAD Surgical History History of lithotripsy Social History Household Members: Friend(s) Housing: House Do you presently have visiting nurse or other home services: No (Had wound care visiting nurses at some point but discontinued) Patient Tobacco Use Status: Current someday Tobacco user Tobacco use type: Cigarette Smoked in Last 30 Days: No Use of substances other than those prescribed or required for medical reasons: No Substance Use Type: Crack/Cocaine and Marijuana Any prior treatment program specific to substance use: Yes Advance Directives: No Advance Directives Information Provided: No service: No Current occupational status: unemployed Meds Allergies Allergy/AdvReac Type Severity Reaction Status Date / Time bee venom protein (honey bee) Allergy Severe Anaphylaxis Verified 11/20/22 11:42 erythromycin base Allergy Intermediate Rash Verified 11/20/22 11:42 Iodinated Contrast Media AdvReac Intermediate Shortness Verified 11/20/22 11:42 of Breath Active Medications: Current Medications Vancomycin HCl (Vancomycin/Ns) 2,000 mg in 500 mls @ 250 mls/hr IV ONCE ONE Stop: 03/22/23 21:18 Home Medications Medication Instructions Recorded Confirmed Last Taken Type albuterol sulfate 90 mcg/actuation 2 puff PO Q4-6H PRN Wheezing 01/01/22 12/17/22 Unknown History aerosol inhaler (ProAir HFA) insulin aspart U-100 100 unit/mL 15 - 18 unit subcut TIDAC 01/01/22 12/17/22 01/01/22 History (3 mL) subcutaneous pen insulin glargine 100 unit/mL (3 60 unit subcut BEDTIME 01/01/22 12/17/22 12/31/21 History mL) subcutaneous pen (Lantus Solostar U-100 Insulin) lisinopril 10 1 tab PO DAILY 01/01/22 12/17/22 01/01/22 History mg-hydrochlorothiazide 12.5 mg tablet omeprazole 20 mg capsule,delayed 1 cap PO DAILY 01/01/22 12/17/22 01/01/22 History release simvastatin 40 mg tablet 1 tab PO BEDTIME 01/01/22 12/17/22 Unknown History methadone 5 mg/5 mL oral syringe 115 mg PO DAILY 10/08/22 12/17/22 10/07/22 History (FOR ORAL USE ONLY) blood sugar diagnostic (FreeStyle #10 ea 12/17/22 12/17/22 Unknown History Lite Strips) flash glucose scanning reader #1 ea 12/17/22 12/17/22 Unknown History (FreeStyle Oumar 2 [place]) flash glucose sensor (FreeStyle #1 ea 12/17/22 12/17/22 Unknown History Oumar 2 Sensor kit) lancets 33 gauge (TRUEplus Lancets) #100 ea 12/17/22 12/17/22 Unknown History pen needle, diabetic 32 gauge x #50 ea 12/17/22 12/17/22 Unknown History 1/4 (Easy Touch) Physical Exam Vital Signs and Narrative: Vital Signs: Last Vital Signs Temp 100.6 F H 03/22/23 19:39 Pulse 84 03/22/23 19:39 Resp 15 03/22/23 19:39 BP 139/68 03/22/23 19:39 Pulse Ox 98 03/22/23 19:39 O2 Del Method Room Air 03/22/23 19:39 BMI result Body Mass Index 34.0 Middle-aged male lying in bed in no distress Neck supple, no JVD Regular rate and rhythm, S1-S2 heard Regular breath sounds bilaterally, no wheezing or crackles appreciated Abdomen soft nontender, no guarding, no rigidity Patient is awake, alert and oriented to self, place, time and person ; no focal motor deficit Msk: Right leg with swelling, warmth and tenderness ; right big toe with foul- smelling drainage Psych: Normal mood No pedal edema Results Labs 03/22/23 20:01 03/22/23 20:01 Labs: Laboratory Results - last 24 hr 03/22/23 03/22/23 03/22/23 20:01 20:01 20:01 MCV 91.3 MCH 30.7 MCHC 33.7 RDW 13.1 Plt Count 230 MPV 9.8 Immature Gran % (Auto) 0.2 Neut % (Auto) 68.2 Lymph % (Auto) 14.7 L [place] % (Auto) 14.9 H Eos % (Auto) 1.5 Baso % (Auto) 0.5 Lymph # (Auto) 1.4 [place] # (Auto) 1.4 H Eos # (Auto) 0.1 Baso # (Auto) 0.1 Abs Immat Gran (auto) 0.02 Absolute Neuts (auto) 6.4 Absolute Nucleated RBC 0.000 Nucleated RBC % (auto) 0.0 Anion Gap 12 Estim Creat Clear Calc 121.9 Estimated GFR > 60 Random Glucose 278 H Lactic Acid 1.1 Calcium 9.5 Total Bilirubin 0.4 Direct Bilirubin 0.2 AST 15 ALT 14 Alkaline Phosphatase 95 Total Protein 7.3 Albumin 3.4 L Lipase 15 Imaging Radiologist's Impressions: Impressions Foot X-Ray 03/22/23 19:34 IMPRESSION: Significant soft tissue swelling about the first and fifth toes. There is new bony destructive change to the first distal phalanx concerning for focal osteomyelitis in this location. Chronic appearing erosive changes to the fifth MTP joint may represent acute on chronic osteomyelitis in this location. Assessment and Plan (1) Uncontrolled diabetes mellitus with hyperglycemia: Status: Acute (2) Osteomyelitis: Status: Acute Plan This is a 57-year-old male with pertinent history of insulin-dependent diabetes mellitus, essential hypertension, hyperlipidemia, gastroesophageal reflux disease who presents to the emergency department for worsening right big toe infection. #.? Sepsis due to Right leg cellulitis and right 5th toe diabetic foot infection with osteomyelitis:? Will initiate broad-spectrum empiric IV antibiotics, vancomycin and Zosyn.? Consulting Infectious Disease. Wound care consult. Resuscitated with IV crystalloids. Lactic acid and blood culture obtained #.? Insulin-dependent type 2 diabetes mellitus with hyperglycemia:? Reduce home Lantus dose and initiate Accu-Cheks with sliding scale insulin. #.? Essential hypertension: Hold home p.o. antihypertensives in the setting of sepsis, resume as apt #.? Mixed hyperlipidemia: Continue statin #.? Gastroesophageal reflux disease: On PPI #. Opioid use disorder: On methadone Med rec pending DVT prophylaxis: Lovenox 40 mg daily Diabetic diet Full Code Admit as inpatient and will require two night minimum hospital stay for IV antibiotics Time Spent With Patient Time: Total time managing care of this patient today ____ minutes. Quality Stroke Does the patient have a stroke diagnosis?: No VTE Prior VTE?: No VTE Risk Level:: Medical - moderate - high VTE Device Contraindication: Treatment Not Indicated VTE Drug Contraindication: N/A - Med Ordered
[2023-03-22] MEDS: Acetaminophen 325 MG TABLET 650 MG PO (21:20)
[2023-03-22] MEDS: vancomycin/NS 2,000 MG/500 ML PLAST..BAG 250 MG IV (21:21)
--- NOTE | 2023-03-22 21:52 | PHA.PROG ---
Admission Date/Time: March 22, 2023 21:00 Indication: OSTEO Weight in k.4 kg Adjusted body weight in K.76 [place] body weight in K Obesity Dosing Indication % IBW:34.0 Serum Creatinine - Last 168 Hours 03/22/23 20:01 Creatinine 0.82 Estimated CrCl and GFR - Last 168 Hours 03/22/23 20:01 Estim Creat Clear Calc 121.9 Estimated GFR > 60 Vancomycin Loading Dose: 2000 Current Vancomycin Dosing Regimen: 1000 Q12 Vancomycin Monitoring using AUC goal of 400 - 600 range with trough as surrogate marker: 445 WITH TROUGH 12.2 Date and Time for next Vancomycin Level to be drawn: 03/24 @0700 Pharmacist Comments on Vancomycin Plan: Vancomycin dosing will take advantage of [employer] as a clinical decision support tool that uses Bayesian modeling to calculate individual patient's pharmacokinetic parameters and forecast the patient's drug concentration time course with the target goal AUC 24 range of 400 - 600 mg/L/hr.
[2023-03-22 22:08] VITALS: BP 116/65; PULSE 77; RESP 16; TEMP 37.4; O2SAT 98
--- NOTE | 2023-03-22 22:22 | PHA.MEDREC ---
Med rec complete, spoke to patient, and compared with pharmacy history Pharmacy Consult ? Medication Reconciliation Pharmacy has completed the medication reconciliation.
[2023-03-22 22:28] LABS: Glucose, Whole Blood 211 mg/dL (60-115)
[2023-03-22] MEDS: Enoxaparin Sodium 40 MG/0.4 ML SYRINGE SUBCUT (22:44)
[2023-03-22 22:46] VITALS: BP 118/62; PULSE 76; RESP 18; TEMP 37.1; O2SAT 97
[2023-03-22 23:20] VITALS: BP 129/63; PULSE 74; RESP 16; TEMP 36; O2SAT 94
[2023-03-22 23:24] VITALS: BMI 34.8
[2023-03-23] MEDS: 0.9 % Sodium Chloride Flush 3 ML SYRINGE IVFLUSH ×4 (00:05→21:16)
[2023-03-23] MEDS: Insulin Glargine,Hum.rec.anlog 100 UNIT/ML 10 ML VIAL 44 UNIT SUBCUT (00:05)
[2023-03-23 00:32] LABS: Appearance Urine Clear; Color Urine Yellow; Glucose Urine UA Negative (Negative); Leukocyte Esterase Urine Negative (Negative); Nitrite Urine Negative (Negative); Urine Blood Negative (Negative); Urine Ketones Negative (Negative); Urine Protein Trace mg/dL (Neg-Trace)
[2023-03-23 03:23] VITALS: BP 117/59; PULSE 65; RESP 18; TEMP 36; O2SAT 94
[2023-03-23] MEDS: Piperacillin Sodium/Tazobactam 4.5 GM in 0.9 % Sodium Chloride 100 ML IV ×4 (05:03→23:37)
[2023-03-23 05:32] LABS: MANUAL DIFF FLAG NO
[2023-03-23 05:34] LABS: Basophils Percent Auto 0.6 % (0-2); Eosinophils Absolute Auto 0.2 X10*3/uL (0.0-0.4); Eosinophils Percent Auto 2.7 % (0-4); Hematocrit 32.6 % (42.0-52.0); Hemoglobin 10.8 g/dl (14.0-18.0); Imm Gran Abs Auto 0.03 X10*3/uL (0.00-0.03); Imm Gran Pct Auto 0.4 % (0.0-0.4); Lymphocytes Absolute Auto 1.3 X10*3/uL (1.2-4.9); Lymphocytes Percent Auto 18.9 % (20-40); Mean Corpuscular HGB Conc 33.1 g/dl (31.0-36.0); Mean Corpuscular Hemoglobin 30.5 pg (27.0-33.0); Mean Corpuscular Volume 92.1 fL (80.0-98.0); Monocytes Absolute Auto 1.1 X10*3/uL (0.1-1.2); Monocytes Percent Auto 16.1 % (2-11); Neutrophils Absolute Auto 4.3 x10*3/uL (2.0-8.3); Neutrophils Percent Auto 61.3 % (45-73); Platelet Count 212 X10*3/uL (160-400); Red Blood Count 3.54 X10*6/uL (4.60-5.80); Red Cell Distribution Width 13.1 % (11.0-16.0)
[2023-03-23 06:04] LABS: Anion Gap 13 (12-20); Blood Urea Nitrogen 15 mg/dL (9-16); Calcium 9.8 mg/dL (8.4-10.2); Carbon Dioxide 25 mmol/L (22-29); Chloride 102 mmol/L (96-108); Creatinine Clr Calc Pharmacy 129.7; Estimated Glomerular Filt Rate > 60; Glucose Random 252 mg/dL (60-115); Potassium 4.7 mmol/L (3.3-5.1); Sodium 135 mmol/L (135-145)
[2023-03-23 07:16] LABS: Glucose, Whole Blood 202 mg/dL (60-115)
[2023-03-23 07:21] LABS: Glucose, Whole Blood 205 mg/dL (60-115)
[2023-03-23 07:29] VITALS: BP 116/66; PULSE 68; RESP 18; TEMP 36.7; O2SAT 94
--- NOTE | 2023-03-23 07:36 | HE.PHANOTE ---
RE METHADONE PATIENT GETS 115MG OF METHADONE FROM [facility]. LAST DOSED 03/22 @ 0633 FOR 115MG
[2023-03-23] MEDS: Insulin Lispro 100 UNIT/ML 3 ML VIAL SUBCUT ×3 (07:48→21:06)
[2023-03-23] MEDS: vancomycin HCL 1,000 MG in 0.9 % Sodium Chloride 250 ML 270 MG IV ×2 (09:31→21:16)
--- NOTE | 2023-03-23 09:54 | MHC.CM.PN ---
pt lives w/roomate has daily nursing visits from [facility] has own ride home
--- NOTE | 2023-03-23 10:34 | HO.PM.IMPN ---
Subjective Subjective Date of Service: 03/23/23 Interval History: No acute issues overnight. Pain control adequate. Dressing with purulence stating Review of Systems Denies chest pain Denies shortness of breath Denies nausea vomiting diarrhea Denies fever chills Physical Exam Vital Signs: Vital Signs: Last Vital Signs Temp 98.1 F 03/23/23 07:29 Pulse 68 03/23/23 07:29 Resp 18 03/23/23 07:29 BP 116/66 03/23/23 07:29 Pulse Ox 94 03/23/23 07:29 O2 Del Method Room Air 03/23/23 07:29 BMI result Body Mass Index 34.8 Const: Other: Awake alert oriented x3 no acute distress Resp: Other: Clear to auscultation bilaterally no rales rhonchi or wheezes Cardio: Other: No S4; positive S1-S2; no S3 murmurs rubs or gallops GI: Other: Soft nontender nondistended normoactive bowel sounds Neuro: Other: Cranial nerves 2-12 grossly intact as tested. Motor is 5/5 all extremities. Sensation decreased in stocking glove distribution Extrem: Other: Ulcerative lesion dorsum right great toe Objective Data Active Medications Acetaminophen (Acetaminophen 325 Mg Tablet) 650 mg PO Q6H PRN PRN Reason: Pain, Mild (Pain Scale 1-3) Acetaminophen (Acetaminophen Supp 650 Mg Supp.Rect) 650 mg [place] Q6H PRN PRN Reason: Pain, Mild (Pain Scale 1-3) Dextrose (Dextrose 50 % 25 Gm/50 Ml Syringe) 25 gm IVPUSH Q15M PRN; Protocol PRN Reason: per Hypoglycemia Standing Ord. Enoxaparin Sodium (Enoxaparin Sodium 40 Mg/0.4 Ml Syringe) 40 mg SUBCUT Q24H [facility] Last Admin: 03/22/23 22:44 Dose: 40 mg Documented By: CHARANJIT-PORCE Glucose (Glucose Gel 15 Gm Gel..Gram.) 15 gm PO Q15M PRN; Protocol PRN Reason: per Hypoglycemia Standing Ord. Vancomycin HCl 1,000 mg/ (Sodium Chloride) 270 mls @ 270 mls/hr IV Q12H [facility] Last Admin: 03/23/23 09:31 Dose: 270 mls/hr Documented By: OKSANA Piperacillin Sod/Tazobactam (Sod 4.5 gm/ Sodium Chloride) 100 mls @ 200 mls/hr IV Q6H [facility] Last Infusion: 03/23/23 05:35 Dose: 0 mls/hr Documented By: LUCIO Insulin Glargine (Insulin Glargine,Hum.Rec.Anlog 100 Unit/Ml 10 Ml Vial) 44 unit SUBCUT BEDTIME [facility] Last Admin: 03/23/23 00:05 Dose: 44 unit Documented By: LUCIO Insulin Glargine (Insulin Glargine,Hum.Rec.Anlog 100 Unit/Ml 10 Ml Vial) 55 unit SUBCUT BEDTIME [facility] Insulin Human Lispro (Insulin Lispro 100 Unit/Ml 3 Ml Vial) 0 unit SUBCUT QIDACHS [facility]; Protocol Last Admin: 03/23/23 07:48 Dose: 4 unit Documented By: OKSANA Melatonin (Melatonin 3 Mg Tablet) 6 mg PO BEDTIME PRN PRN Reason: Insomnia Methadone HCl (Methadone Hcl 20 Mg/2 Ml Oral.Conc) 115 mg PO DAILY [facility] Non-Formulary Medication (Lisinopril-Hydrochlorothiazide) 1 tab PO DAILY [facility] Non-Formulary Medication (Simvastatin) 1 tab PO DAILY [place] Ondansetron HCl (Ondansetron Hcl 4 Mg/2 Ml Vial) 4 mg IVPUSH Q8H PRN PRN Reason: Nausea and Vomiting Pharmacy Consult (Consult Rx Perform Med Rec) 1 each MISCELLANE ONCE PRN PRN Reason: Consult order Pharmacy Consult (Consult Rx Vancomycin Dosing) 1 each MISCELLANE DAILY PRN PRN Reason: Consult order Sodium Chloride (0.9 % Sodium Chloride Flush 3 Ml Syringe) 3 ml IVFLUSH QSHIFT [facility] Last Admin: 03/23/23 07:48 Dose: 3 ml Documented By: OKSANA Labs 03/23/23 05:24 03/23/23 05:24 Labs: Laboratory Results - last 24 hr 03/22/23 03/22/23 03/22/23 20:01 20:01 20:01 MCV 91.3 MCH 30.7 MCHC 33.7 RDW 13.1 Plt Count 230 MPV 9.8 Immature Gran % (Auto) 0.2 Neut % (Auto) 68.2 Lymph % (Auto) 14.7 L [place] % (Auto) 14.9 H Eos % (Auto) 1.5 Baso % (Auto) 0.5 Lymph # (Auto) 1.4 [place] # (Auto) 1.4 H Eos # (Auto) 0.1 Baso # (Auto) 0.1 Abs Immat Gran (auto) 0.02 Absolute Neuts (auto) 6.4 Absolute Nucleated RBC 0.000 Nucleated RBC % (auto) 0.0 Anion Gap 12 Estim Creat Clear Calc 121.9 Estimated GFR > 60 POC Glucose Random Glucose 278 H Lactic Acid 1.1 Calcium 9.5 Total Bilirubin 0.4 Direct Bilirubin 0.2 AST 15 ALT 14 Alkaline Phosphatase 95 Total Protein 7.3 Albumin 3.4 L Lipase 15 Urine Color Urine Appearance Urine pH Ur Specific [place] Urine Protein Urine Glucose (UA) Urine Ketones Urine Blood Urine Nitrite Ur Leukocyte Esterase 03/22/23 03/23/23 03/23/23 22:12 00:21 05:24 MCV 92.1 MCH 30.5 MCHC 33.1 RDW 13.1 Plt Count 212 MPV 10.0 Immature Gran % (Auto) 0.4 Neut % (Auto) 61.3 Lymph % (Auto) 18.9 L [place] % (Auto) 16.1 H Eos % (Auto) 2.7 Baso % (Auto) 0.6 Lymph # (Auto) 1.3 [place] # (Auto) 1.1 Eos # (Auto) 0.2 Baso # (Auto) 0.0 Abs Immat Gran (auto) 0.03 Absolute Neuts (auto) 4.3 Absolute Nucleated RBC 0.000 Nucleated RBC % (auto) 0.0 Anion Gap Estim Creat Clear Calc Estimated GFR POC Glucose 211 H Random Glucose Lactic Acid Calcium Total Bilirubin Direct Bilirubin AST ALT Alkaline Phosphatase Total Protein Albumin Lipase Urine Color Yellow Urine Appearance Clear Urine pH 6.0 Ur Specific [place] 1.020 Urine Protein Trace Urine Glucose (UA) Negative Urine Ketones Negative Urine Blood Negative Urine Nitrite Negative Ur Leukocyte Esterase Negative 03/23/23 03/23/23 03/23/23 05:24 06:55 07:16 MCV MCH MCHC RDW Plt Count MPV Immature Gran % (Auto) Neut % (Auto) Lymph % (Auto) [place] % (Auto) Eos % (Auto) Baso % (Auto) Lymph # (Auto) [place] # (Auto) Eos # (Auto) Baso # (Auto) Abs Immat Gran (auto) Absolute Neuts (auto) Absolute Nucleated RBC Nucleated RBC % (auto) Anion Gap 13 Estim Creat Clear Calc 129.7 Estimated GFR > 60 POC Glucose 202 H 205 H Random Glucose 252 H Lactic Acid Calcium 9.8 Total Bilirubin Direct Bilirubin AST ALT Alkaline Phosphatase Total Protein Albumin Lipase Urine Color Urine Appearance Urine pH Ur Specific [place] Urine Protein Urine Glucose (UA) Urine Ketones Urine Blood Urine Nitrite Ur Leukocyte Esterase Assessment and Plan (1) Sepsis: Status: Acute (2) Osteomyelitis of great toe of right foot: Status: Acute (3) Uncontrolled diabetes mellitus with hyperglycemia: Status: Acute (4) IDDM (insulin dependent diabetes mellitus): Status: Acute Plan This is a 57-year-old male with pertinent history of insulin-dependent diabetes mellitus, essential hypertension, hyperlipidemia, gastroesophageal reflux disease who presents to the emergency department for worsening right big toe infection. 1.Sepsis due to Right leg cellulitis/5th toe diabetic foot infection with osteomyelitis -sepsis resolved -Vanco/Zosyn (2) -will hold on MRI. Last MRI October this year consistent with osteomyelitis. Likely show changes on current. -await ID consult 2.Insulin-dependent type 2 diabetes mellitus? -lispro correctional scale -continue basal insulin as per outpatient dosing -adjust as indicated 3. Essential hypertension -acceptable control off therapies -add back lisinopril as appropriate 4.Opioid use disorder -methadone dose verified. .. Will continue -MiraLax as per outpatient for chronic constipation Lovenox 40 mg daily Full Code Requires ongoing inpatient status for IV antibiotics to treat right lower extremity cellulitis Time Spent With Patient Time: Total time managing care of this patient today ____ minutes. Quality Stroke Does the patient have a stroke diagnosis?: No VTE Prior VTE?: No VTE Risk Level:: Medical - moderate - high VTE Device Contraindication: Treatment Not Indicated VTE Drug Contraindication: N/A - Med Ordered
[2023-03-23] MEDS: methADONE HCl 20 MG/2 ML ORAL.CONC 115 MG PO (10:44)
[2023-03-23 11:18] LABS: Glucose, Whole Blood 245 mg/dL (60-115)
[2023-03-23] MEDS: polyethylene glycoL 3350 17 GM POWD.PACK PO (12:35)
--- NOTE | 2023-03-23 15:40 | W.PM.IDCN ---
History of Present Illness Data of Consult Service Date: 03/23/23 Requesting physician: Mumtaz Gutiérrez Primary Care Provider: Valery Berrios MD HPI Reason for consult: redness right leg,chronic right and left leg wounds He presents with right leg redness to knee new and right great toe and fifth toe chronic rubor and ulcer first toe. I had seen him 11/21 and switched IV Ertapenem six weeks started on 10/08 to po Doxycycline 100 mg bid which he took for month. He says he did not take additional po medication. H has had Group B strep and MSSA. 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 Review of Systems Review of Systems: improving erythema right leg Yes all other systems are reviewed and are negative PMFSH Past Medical History Medical History Asthma Cellulitis High cholesterol HTN (hypertension) IDDM (insulin dependent diabetes mellitus) Kidney stones Osteomyelitis Uncontrolled diabetes mellitus with hyperglycemia Family History Family history: reviewed and not pertinent Surgical History Surgical History History of lithotripsy Social History Social History Household Members: Other Housing: House Do you presently have visiting nurse or other home services: Yes Patient Tobacco Use Status: Former Tobacco user Tobacco use type: Cigarette Smoked in Last 30 Days: No Use of substances other than those prescribed or required for medical reasons: No Substance Use Type: Crack/Cocaine and Marijuana Currently Displaying Signs/Symptoms of Drug Intoxication Withdrawal: No Any prior treatment program specific to substance use: No Have you been hit, kicked, punched, or otherwise hurt by someone within the past year? If so, by whom?: No Do you feel safe in your current relationship?: Yes Is there a partner from a previous relationship who is making you feel unsafe now?: No Are you made to feel afraid or neglected: No [facility] Practices: denominational Advance Directives: No Advance Directives Information Provided: No Do you have thoughts of harming others: None Do you have a plan to hurt others: No Plan Recently lost weight without trying: No How much weight loss: Unsure Eating poorly because of decreased appetite: No Nutrition screen score: 2 Nutrition Risks: No Nutritional Risk Poor oral hygiene: No service: No Current occupational status: unemployed Meds Allergies Allergy/AdvReac Type Severity Reaction Status Date / Time bee venom protein (honey bee) Allergy Severe Anaphylaxis Verified 11/20/22 11:42 erythromycin base Allergy Intermediate Rash Verified 11/20/22 11:42 Iodinated Contrast Media AdvReac Intermediate Shortness Verified 11/20/22 11:42 of Breath Active Medications: Current Medications Acetaminophen (Acetaminophen 325 Mg Tablet) 650 mg PO Q6H PRN PRN Reason: Pain, Mild (Pain Scale 1-3) Acetaminophen (Acetaminophen Supp 650 Mg Supp.Rect) 650 mg [place] Q6H PRN PRN Reason: Pain, Mild (Pain Scale 1-3) Atorvastatin Calcium (Atorvastatin Calcium 20 Mg Tablet) 20 mg PO DAILY [facility] Dextrose (Dextrose 50 % 25 Gm/50 Ml Syringe) 25 gm IVPUSH Q15M PRN; Protocol PRN Reason: per Hypoglycemia Standing Ord. Enoxaparin Sodium (Enoxaparin Sodium 40 Mg/0.4 Ml Syringe) 40 mg SUBCUT Q24H [facility] Last Admin: 03/22/23 22:44 Dose: 40 mg Glucose (Glucose Gel 15 Gm Gel..Gram.) 15 gm PO Q15M PRN; Protocol PRN Reason: per Hypoglycemia Standing Ord. Vancomycin HCl 1,000 mg/ (Sodium Chloride) 270 mls @ 270 mls/hr IV Q12H [facility] Last Infusion: 03/23/23 10:38 Dose: Infused Piperacillin Sod/Tazobactam (Sod 4.5 gm/ Sodium Chloride) 100 mls @ 200 mls/hr IV Q6H [facility] Last Infusion: 03/23/23 12:16 Dose: Infused Insulin Glargine (Insulin Glargine,Hum.Rec.Anlog 100 Unit/Ml 10 Ml Vial) 55 unit SUBCUT BEDTIME [facility] Insulin Human Lispro (Insulin Lispro 100 Unit/Ml 3 Ml Vial) 0 unit SUBCUT QIDACHS [facility]; Protocol Last Admin: 03/23/23 11:46 Dose: 4 unit Melatonin (Melatonin 3 Mg Tablet) 6 mg PO BEDTIME PRN PRN Reason: Insomnia Methadone HCl (Methadone Hcl 20 Mg/2 Ml Oral.Conc) 115 mg PO DAILY [facility] Last Admin: 03/23/23 10:44 Dose: 115 mg Ondansetron HCl (Ondansetron Hcl 4 Mg/2 Ml Vial) 4 mg IVPUSH Q8H PRN PRN Reason: Nausea and Vomiting Pharmacy Consult (Consult Rx Perform Med Rec) 1 each MISCELLANE ONCE PRN PRN Reason: Consult order Pharmacy Consult (Consult Rx Vancomycin Dosing) 1 each MISCELLANE DAILY PRN PRN Reason: Consult order Polyethylene Glycol (Polyethylene Glycol 3350 17 Gm Powd.Pack) 17 gm PO DAILY [facility] Last Admin: 03/23/23 12:35 Dose: 17 gm Sodium Chloride (0.9 % Sodium Chloride Flush 3 Ml Syringe) 3 ml IVFLUSH QSHIFT [facility] Last Admin: 03/23/23 15:27 Dose: 3 ml Home Medications Medication Instructions Recorded Confirmed Last Taken Type albuterol sulfate 90 mcg/actuation 2 puff PO Q4-6H PRN Wheezing 01/01/22 03/22/23 Unknown History aerosol inhaler (ProAir HFA) insulin glargine 100 unit/mL (3 55 unit subcut BEDTIME 01/01/22 03/22/23 03/21/23 History mL) subcutaneous pen (Lantus Solostar U-100 Insulin) simvastatin 40 mg tablet 1 tab PO DAILY 01/01/22 03/22/23 03/22/23 History blood sugar diagnostic (FreeStyle #10 ea 12/17/22 12/17/22 Unknown History Lite Strips) flash glucose scanning reader #1 ea 12/17/22 12/17/22 Unknown History (FreeStyle [place] 2 [place]) flash glucose sensor (FreeStyle #1 ea 12/17/22 12/17/22 Unknown History [place] 2 Sensor kit) lancets 33 gauge (TRUEplus Lancets) #100 ea 12/17/22 12/17/22 Unknown History pen needle, diabetic 32 gauge x #50 ea 12/17/22 12/17/22 Unknown History 1/4 (Easy Touch) insulin lispro 100 unit/mL 2 - 12 unit subcut TIDAC 03/22/23 03/22/23 Unknown History subcutaneous cartridge (Humalog U-100 Insulin) lisinopril 20 1 tab PO DAILY 03/22/23 03/22/23 03/22/23 History mg-hydrochlorothiazide 12.5 mg tablet methadone 10 mg/mL oral 115 mg PO DAILY 03/22/23 03/23/23 03/22/23 History concentrate (Methadone Intensol) Physical Exam Vital Signs: Vital Signs: Last Vital Signs Temp 98.1 F 03/23/23 07:29 Pulse 68 03/23/23 07:29 Resp 18 03/23/23 07:29 BP 116/66 03/23/23 07:29 Pulse Ox 94 03/23/23 07:29 O2 Del Method Room Air 03/23/23 07:29 BMI result Body Mass Index 34.8 Const: General: cooperative HEENT: Head: Yes normal to inspection Face and sinus: Yes normal facial exam Mouth: Normal oral and palatal mucosa present Teeth and gingiva: dentition normal Eyes: General: appearance normal, both eyes and all related structures Pupils: Equal, round and reactive pupils present Resp: Effort & Inspection: normal respiratory effort Cardio: Rate: regular rate Rhythm: regular rhythm GI: Palpation (GI): Soft to palpation and nontender : General: Yes no CVA tenderness Back/Spine/Pelvis: Back: no CVA tenderness Skin: General skin exam: no rashes or lesions noted Neuro: General: moves all extremities Cranial nerves: Yes Equal, round and reactive pupils present Extrem: Other: resolving redness RLE,stable right great toe and fifth toe with no green or yellow exudate,1 cm beefy granulation tissue toe Psych: Appearance: grossly normal Results Labs 03/23/23 05:24 03/23/23 05:24 Labs: Short CBC 03/22/23 03/23/23 Range/Units 20:01 05:24 WBC 9.4 7.0 (4.8-10.8) X10*3/uL Hgb 10.3 L D 10.8 L (14.0-18.0) g/dl Hct 30.6 L D 32.6 L (42.0-52.0) % Plt Count 230 212 (160-400) X10*3/uL BMP 03/22/23 03/23/23 20:01 05:24 Sodium 135 135 Potassium 4.6 4.7 Chloride 100 102 Carbon Dioxide 28 25 BUN 19 H 15 Creatinine 0.82 0.78 Calcium 9.5 9.8 Liver Function 03/22/23 Range/Units 20:01 Total Bilirubin 0.4 (0.0-1.0) mg/dL Direct Bilirubin 0.2 (0.0-0.5) mg/dL AST 15 (5-37) U/L ALT 14 (0-40) U/L Alkaline Phosphatase 95 (39-117) U/L Albumin 3.4 L (3.5-5.0) g/dL Urine 03/23/23 Range/Units 00:21 Urine Color Yellow Urine Appearance Clear Urine pH 6.0 (5.0-9.0) Ur Specific [place] 1.020 (1.005-1.025) Urine Protein Trace (Neg-Trace) mg/dL Urine Glucose (UA) Negative (Negative) mg/dL Assessment and Plan (1) Sepsis: Status: Acute Cellulitis and no bacteremia Osteomyelitis is chronic and not acute (2) Osteomyelitis of great toe of right foot: Status: Acute Plan Treat cellulitis with Vancomycin and Zosyn Switch to po Doxycycline 100 mg bid month or two as outpatient Follow Wound Clinic only. Time Spent With Patient Time: Total time managing care of this patient today ____ minutes.
[2023-03-23 15:55] VITALS: BP 95/53; PULSE 67; RESP 18; TEMP 36.1; O2SAT 94
[2023-03-23 16:21] LABS: Glucose, Whole Blood 142 mg/dL (60-115)
[2023-03-23 20:00] VITALS: BP 134/68; PULSE 71; RESP 18; TEMP 36.1; O2SAT 95
[2023-03-23 20:44] LABS: Glucose, Whole Blood 184 mg/dL (60-115)
[2023-03-23] MEDS: Insulin Glargine,Hum.rec.anlog 100 UNIT/ML 10 ML VIAL 55 UNIT SUBCUT (21:04)
[2023-03-23] MEDS: Enoxaparin Sodium 40 MG/0.4 ML SYRINGE SUBCUT (21:07)
[2023-03-24 03:40] VITALS: BP 119/69; PULSE 73; RESP 18; TEMP 36.2; O2SAT 98
[2023-03-24] MEDS: Piperacillin Sodium/Tazobactam 4.5 GM in 0.9 % Sodium Chloride 100 ML IV ×4 (04:40→23:49)
[2023-03-24 07:10] VITALS: BP 150/89; PULSE 76; RESP 18; TEMP 36; O2SAT 98
[2023-03-24 07:12] LABS: MANUAL DIFF FLAG NO
[2023-03-24 07:16] LABS: Basophils Absolute Auto 0.1 X10*3/uL (0.0-0.2); Basophils Percent Auto 0.8 % (0-2); Eosinophils Absolute Auto 0.2 X10*3/uL (0.0-0.4); Eosinophils Percent Auto 2.5 % (0-4); Hemoglobin 11.5 g/dl (14.0-18.0); Imm Gran Abs Auto 0.04 X10*3/uL (0.00-0.03); Imm Gran Pct Auto 0.5 % (0.0-0.4); Lymphocytes Absolute Auto 1.2 X10*3/uL (1.2-4.9); Lymphocytes Percent Auto 14.5 % (20-40); Mean Corpuscular HGB Conc 33.8 g/dl (31.0-36.0); Mean Corpuscular Hemoglobin 31.2 pg (27.0-33.0); Mean Corpuscular Volume 92.1 fL (80.0-98.0); Mean Platelet Volume 10.1 fL (9.4-12.4); Monocytes Absolute Auto 0.8 X10*3/uL (0.1-1.2); Neutrophils Absolute Auto 5.9 x10*3/uL (2.0-8.3); Neutrophils Percent Auto 71.7 % (45-73); Platelet Count 251 X10*3/uL (160-400); Red Blood Count 3.69 X10*6/uL (4.60-5.80); Red Cell Distribution Width 12.9 % (11.0-16.0); White Blood Count 8.3 X10*3/uL (4.8-10.8)
[2023-03-24 07:38] LABS: Vancomycin Random 10.4 mcg/mL (15-20)
[2023-03-24 07:41] LABS: Alanine Aminotransferase 12 U/L (0-40); Albumin Level 3.6 g/dL (3.5-5.0); Alkaline Phosphatase 84 U/L (39-117); Anion Gap 13 (12-20); Aspartate Amino Transferase 14 U/L (5-37); Bilirubin Total 0.5 mg/dL (0.0-1.0); Blood Urea Nitrogen 11 mg/dL (9-16); Carbon Dioxide 30 mmol/L (22-29); Chloride 99 mmol/L (96-108); Creatinine Clr Calc Pharmacy 129.7; Estimated Glomerular Filt Rate > 60; Glucose Fasting 122 mg/dL (60-99); Potassium 4.5 mmol/L (3.3-5.1); Sodium 137 mmol/L (135-145); Total Protein 7.8 g/dL (6.5-8.0)
[2023-03-24 07:52] LABS: Glucose, Whole Blood 132 mg/dL (60-115)
--- NOTE | 2023-03-24 08:03 | HE.PHANOTE ---
RE VANCO TROUGH WAS 10.4. NEXT RANDOM DUE FOR 03/25 @0700. NEW SUSPECTED AUC 544, TROUGH IS 12.2 MIGUEL A
[2023-03-24] MEDS: vancomycin HCL 1,500 MG in 0.9 % Sodium Chloride 500 ML 333.33 MG IV ×2 (08:14→21:03)
[2023-03-24] MEDS: polyethylene glycoL 3350 17 GM POWD.PACK PO (08:15)
[2023-03-24] MEDS: methADONE HCl 20 MG/2 ML ORAL.CONC 115 MG PO (08:15)
[2023-03-24] MEDS: 0.9 % Sodium Chloride Flush 3 ML SYRINGE IVFLUSH ×3 (08:16→21:03)
[2023-03-24 11:28] LABS: Glucose, Whole Blood 196 mg/dL (60-115)
[2023-03-24] MEDS: Insulin Lispro 100 UNIT/ML 3 ML VIAL SUBCUT ×3 (11:37→20:54)
--- NOTE | 2023-03-24 12:24 | P.PNIM_ITS ---
Subjective Subjective Date of Service: 03/24/23 Interval History: Notes improvement overall since admission. Remains afebrile Review of Systems Denies chest pain Denies shortness of breath Denies nausea vomiting diarrhea Denies fever chills Physical Exam Vital Signs: Vital Signs: Last Vital Signs Temp 96.8 F 03/24/23 07:10 Pulse 76 03/24/23 07:10 Resp 18 03/24/23 07:10 BP 150/89 H 03/24/23 07:10 Pulse Ox 98 03/24/23 07:10 O2 Del Method Room Air 03/24/23 07:10 BMI result Body Mass Index 34.8 Const: Other: Awake alert oriented x3 no acute distress Resp: Other: Clear to auscultation bilaterally no rales rhonchi or wheezes Cardio: Other: No S4; positive S1-S2; no S3 murmurs rubs or gallops GI: Other: Soft nontender nondistended normoactive bowel sounds Neuro: Other: Cranial nerves 2-12 grossly intact as tested. Motor is 5/5 all extremities. Sensation decreased in stocking glove distribution Extrem: Other: Ulcerative lesion dorsum right great toe Objective Data Active Medications Acetaminophen (Acetaminophen 325 Mg Tablet) 650 mg PO Q6H PRN PRN Reason: Pain, Mild (Pain Scale 1-3) Acetaminophen (Acetaminophen Supp 650 Mg Supp.Rect) 650 mg [place] Q6H PRN PRN Reason: Pain, Mild (Pain Scale 1-3) Atorvastatin Calcium (Atorvastatin Calcium 20 Mg Tablet) 20 mg PO DAILY [facility] Last Admin: 03/24/23 08:15 Dose: Not Given Documented By: JOSE Non-Admin Reason: Unable to Scan Barcode Dextrose (Dextrose 50 % 25 Gm/50 Ml Syringe) 25 gm IVPUSH Q15M PRN; Protocol PRN Reason: per Hypoglycemia Standing Ord. Enoxaparin Sodium (Enoxaparin Sodium 40 Mg/0.4 Ml Syringe) 40 mg SUBCUT Q24H [facility] Last Admin: 03/23/23 21:07 Dose: 40 mg Documented By: SHERRIE Glucose (Glucose Gel 15 Gm Gel..Gram.) 15 gm PO Q15M PRN; Protocol PRN Reason: per Hypoglycemia Standing Ord. Piperacillin Sod/Tazobactam (Sod 4.5 gm/ Sodium Chloride) 100 mls @ 200 mls/hr IV Q6H [facility] Last Infusion: 03/24/23 11:38 Dose: 0 mls/hr Documented By: JOSE Vancomycin HCl 1,500 mg/ (Sodium Chloride) 500 mls @ 333.333 mls/hr IV Q12H [facility] Last Infusion: 03/24/23 09:58 Dose: 0 mls/hr Documented By: JOSE Insulin Glargine (Insulin Glargine,Hum.Rec.Anlog 100 Unit/Ml 10 Ml Vial) 55 unit SUBCUT BEDTIME [facility] Last Admin: 03/23/23 21:04 Dose: 55 unit Documented By: SHERRIE Insulin Human Lispro (Insulin Lispro 100 Unit/Ml 3 Ml Vial) 0 unit SUBCUT QIDACHS [facility]; Protocol Last Admin: 03/24/23 11:37 Dose: 2 unit Documented By: JOSE Melatonin (Melatonin 3 Mg Tablet) 6 mg PO BEDTIME PRN PRN Reason: Insomnia Methadone HCl (Methadone Hcl 20 Mg/2 Ml Oral.Conc) 115 mg PO DAILY [facility] Last Admin: 03/24/23 08:15 Dose: 115 mg Documented By: JOSE Ondansetron HCl (Ondansetron Hcl 4 Mg/2 Ml Vial) 4 mg IVPUSH Q8H PRN PRN Reason: Nausea and Vomiting Pharmacy Consult (Consult Rx Perform Med Rec) 1 each MISCELLANE ONCE PRN PRN Reason: Consult order Pharmacy Consult (Consult Rx Vancomycin Dosing) 1 each MISCELLANE DAILY PRN PRN Reason: Consult order Polyethylene Glycol (Polyethylene Glycol 3350 17 Gm Powd.Pack) 17 gm PO DAILY [facility] Last Admin: 03/24/23 08:15 Dose: 17 gm Documented By: JOSE Sodium Chloride (0.9 % Sodium Chloride Flush 3 Ml Syringe) 3 ml IVFLUSH QSHIFT [facility] Last Admin: 03/24/23 08:16 Dose: 3 ml Documented By: JOSE Labs 03/24/23 07:07 03/24/23 07:07 Labs: Laboratory Results - last 24 hr 03/23/23 03/23/23 03/24/23 16:18 20:41 07:07 MCV MCH MCHC RDW Plt Count MPV Immature Gran % (Auto) Neut % (Auto) Lymph % (Auto) [place] % (Auto) Eos % (Auto) Baso % (Auto) Lymph # (Auto) [place] # (Auto) Eos # (Auto) Baso # (Auto) Abs Immat Gran (auto) Absolute Neuts (auto) Absolute Nucleated RBC Nucleated RBC % (auto) Anion Gap Estim Creat Clear Calc Estimated GFR POC Glucose 142 H 184 H Fasting Glucose Calcium Total Bilirubin AST ALT Alkaline Phosphatase Total Protein Albumin Random Vancomycin 10.4 L 03/24/23 03/24/23 03/24/23 07:07 07:07 07:10 MCV 92.1 MCH 31.2 MCHC 33.8 RDW 12.9 Plt Count 251 MPV 10.1 Immature Gran % (Auto) 0.5 H Neut % (Auto) 71.7 Lymph % (Auto) 14.5 L [place] % (Auto) 10.0 Eos % (Auto) 2.5 Baso % (Auto) 0.8 Lymph # (Auto) 1.2 [place] # (Auto) 0.8 Eos # (Auto) 0.2 Baso # (Auto) 0.1 Abs Immat Gran (auto) 0.04 H Absolute Neuts (auto) 5.9 Absolute Nucleated RBC 0.000 Nucleated RBC % (auto) 0.0 Anion Gap 13 Estim Creat Clear Calc 129.7 Estimated GFR > 60 POC Glucose 132 H Fasting Glucose 122 H Calcium 10.0 Total Bilirubin 0.5 AST 14 ALT 12 Alkaline Phosphatase 84 Total Protein 7.8 Albumin 3.6 Random Vancomycin 03/24/23 11:10 MCV MCH MCHC RDW Plt Count MPV Immature Gran % (Auto) Neut % (Auto) Lymph % (Auto) [place] % (Auto) Eos % (Auto) Baso % (Auto) Lymph # (Auto) [place] # (Auto) Eos # (Auto) Baso # (Auto) Abs Immat Gran (auto) Absolute Neuts (auto) Absolute Nucleated RBC Nucleated RBC % (auto) Anion Gap Estim Creat Clear Calc Estimated GFR POC Glucose 196 H Fasting Glucose Calcium Total Bilirubin AST ALT Alkaline Phosphatase Total Protein Albumin Random Vancomycin Microbiology Microbiology Results: Microbiology 03/22/23 20:01 Blood Culture - Preliminary Blood - Venous No growth after 24 hours. 03/22/23 20:01 Blood Culture - Preliminary Blood - Venous No growth after 24 hours. Assessment and Plan (1) Sepsis: Status: Acute (2) Osteomyelitis: Status: Acute (3) Uncontrolled diabetes mellitus with hyperglycemia: Status: Acute Plan This is a 57-year-old male with pertinent history of insulin-dependent diabetes mellitus, essential hypertension, hyperlipidemia, gastroesophageal reflux disease who presents to the emergency department for worsening right big toe infection. 1.Sepsis due to Right leg cellulitis/5th toe diabetic foot infection with osteomyelitis -sepsis resolved -Vanco/Zosyn (3) -blood cultures thus far negative -will switch to oral doxycycline upon discharge 2.Insulin-dependent type 2 diabetes mellitus? -acceptable control on current therapy -lispro correctional scale -continue basal insulin as per outpatient dosing -adjust as indicated 3. Essential hypertension -acceptable control off therapies -add back lisinopril as appropriate 4.Opioid use disorder -methadone dose verified. .. Will continue -MiraLax as per outpatient for chronic constipation Lovenox 40 mg daily Full Code Requires ongoing inpatient status for IV antibiotics to treat right lower extremity cellulitis Time Spent With Patient Time: Total time managing care of this patient today ____ minutes. Quality Stroke Does the patient have a stroke diagnosis?: No VTE Prior VTE?: No VTE Risk Level:: Medical - moderate - high VTE Device Contraindication: Treatment Not Indicated VTE Drug Contraindication: N/A - Med Ordered
--- NOTE | 2023-03-24 13:49 | MHC.CM.PN ---
ppt to be dcd tomorrow will resume [facility]
[2023-03-24 15:04] VITALS: BP 124/68; PULSE 67; RESP 18; TEMP 36.2; O2SAT 96
[2023-03-24 16:24] LABS: Glucose, Whole Blood 173 mg/dL (60-115)
[2023-03-24 19:20] VITALS: BP 139/71; PULSE 76; RESP 18; TEMP 36.3; O2SAT 94
[2023-03-24 20:28] LABS: Glucose, Whole Blood 228 mg/dL (60-115)
[2023-03-24] MEDS: Insulin Glargine,Hum.rec.anlog 100 UNIT/ML 10 ML VIAL 55 UNIT SUBCUT (20:55)
[2023-03-24] MEDS: Enoxaparin Sodium 40 MG/0.4 ML SYRINGE SUBCUT (20:55)
[2023-03-25 03:56] VITALS: BP 141/74; PULSE 69; RESP 18; TEMP 36; O2SAT 97
[2023-03-25] MEDS: Piperacillin Sodium/Tazobactam 4.5 GM in 0.9 % Sodium Chloride 100 ML IV (04:34)
[2023-03-25 06:54] LABS: MANUAL DIFF FLAG NO
[2023-03-25 07:00] LABS: Basophils Absolute Auto 0.1 X10*3/uL (0.0-0.2); Basophils Percent Auto 0.7 % (0-2); Eosinophils Absolute Auto 0.2 X10*3/uL (0.0-0.4); Eosinophils Percent Auto 2.9 % (0-4); Hematocrit 32.7 % (42.0-52.0); Imm Gran Abs Auto 0.03 X10*3/uL (0.00-0.03); Imm Gran Pct Auto 0.4 % (0.0-0.4); Lymphocytes Absolute Auto 1.3 X10*3/uL (1.2-4.9); Lymphocytes Percent Auto 19.1 % (20-40); Mean Corpuscular HGB Conc 33.6 g/dl (31.0-36.0); Mean Corpuscular Hemoglobin 30.7 pg (27.0-33.0); Mean Corpuscular Volume 91.3 fL (80.0-98.0); Mean Platelet Volume 9.9 fL (9.4-12.4); Monocytes Absolute Auto 0.8 X10*3/uL (0.1-1.2); Monocytes Percent Auto 11.7 % (2-11); Neutrophils Absolute Auto 4.6 x10*3/uL (2.0-8.3); Neutrophils Percent Auto 65.2 % (45-73); Platelet Count 258 X10*3/uL (160-400); Red Blood Count 3.58 X10*6/uL (4.60-5.80); Red Cell Distribution Width 12.7 % (11.0-16.0)
[2023-03-25 07:07] VITALS: BP 134/62; PULSE 63; RESP 18; TEMP 37.1; O2SAT 95
[2023-03-25 07:14] LABS: Alanine Aminotransferase 11 U/L (0-40); Albumin Level 3.4 g/dL (3.5-5.0); Alkaline Phosphatase 82 U/L (39-117); Anion Gap 13 (12-20); Aspartate Amino Transferase 16 U/L (5-37); Bilirubin Total 0.5 mg/dL (0.0-1.0); Blood Urea Nitrogen 12 mg/dL (9-16); Calcium 9.9 mg/dL (8.4-10.2); Carbon Dioxide 29 mmol/L (22-29); Chloride 101 mmol/L (96-108); Creatinine Clr Calc Pharmacy 128.1; Estimated Glomerular Filt Rate > 60; Glucose Fasting 124 mg/dL (60-99); Potassium 4.9 mmol/L (3.3-5.1); Sodium 138 mmol/L (135-145); Total Protein 7.4 g/dL (6.5-8.0)
[2023-03-25 07:24] LABS: Vancomycin Random 14.7 mcg/mL (15-20)
[2023-03-25 07:30] LABS: Glucose, Whole Blood 118 mg/dL (60-115)
--- NOTE | 2023-03-25 07:52 | HE.PHANOTE ---
RE: Cirilo Patients level came back this morning at 14.7. Patients indication is bone and joint will continue at this dose. Predicted AUC 542. Next draw 03/26 @0700
[2023-03-25] MEDS: Atorvastatin Calcium 20 MG TABLET PO (08:01)
[2023-03-25] MEDS: methADONE HCl 20 MG/2 ML ORAL.CONC 115 MG PO (08:02)
[2023-03-25] MEDS: polyethylene glycoL 3350 17 GM POWD.PACK PO (08:02)
[2023-03-25] MEDS: vancomycin HCL 1,500 MG in 0.9 % Sodium Chloride 500 ML 333.33 MG IV (08:56)
[2023-03-25] MEDS: 0.9 % Sodium Chloride Flush 3 ML SYRINGE IVFLUSH (08:57)
[2023-03-25 11:30] LABS: Glucose, Whole Blood 166 mg/dL (60-115)
[2023-03-25] MEDS: Insulin Lispro 100 UNIT/ML 3 ML VIAL SUBCUT (11:42)
--- NOTE | 2023-03-25 11:44 | P.DS_ITS ---
DS: Providers Provider Date of Service: 03/25/23 Date of admission: 03/22/23 21:00 Date of discharge: 03/25/23 Primary care physician: Valery Berrios MD Consults: 03/22/23 21:14 Consult to Infectious Diseases Routine Consulting Provider: [facility] [place] Infectious Disease Reason for consultation: Osteomyelitis DS: Diagnosis Discharge Diagnosis (1) Sepsis: Status: Acute (2) Uncontrolled diabetes mellitus with hyperglycemia: Status: Acute (3) Osteomyelitis of great toe of right foot: Status: Acute DS: Summary Hospital Course Hospital Course: 57-year-old male with pertinent history of insulin-dependent diabetes mellitus, essential hypertension, hyperlipidemia, gastroesophageal reflux disease who presents to the emergency department for worsening right leg redness, warmth and drainage from right back toe.? Patient states he noticed swelling of right leg yesterday and it has been worsening. Has associated nausea and fevers /chills.?Patient also complaints of purulent foul-smelling drainage from right big toe.? X-rays in the emergency room consistent with osteomyelitis [facility] Patient admitted placed on vancomycin and Zosyn. Over the next 48 hours marked improvement in great toe. Seen in consultation by Infectious Disease; thought to be chronic osteomyelitis. Recommend discharge with 1 month of doxycycline and follow-up with wound clinic as scheduled. At this time he is medically acceptable for discharge home and follow-up with wound clinic Time Spent with Patient Time attestation: Total time managing care of this patient today ____ minutes. Discharge coordination time: Greater than 30 minutes Quality: Safe Use of Opioids Does Pt have an Active Cancer Diagnosis on the Problem List?: No Quality: Stroke Does the patient have a stroke diagnosis?: No Physical Exam Vital Signs: Vital Signs: Last Vital Signs Temp 98.8 F 03/25/23 07:07 Pulse 63 03/25/23 07:07 Resp 18 03/25/23 07:07 BP 134/62 03/25/23 07:07 Pulse Ox 95 03/25/23 07:07 O2 Del Method Room Air 03/25/23 07:07 BMI result Body Mass Index 34.8 Const: Other: Awake alert oriented x3 no acute distress Resp: Other: Clear to auscultation bilaterally no rales rhonchi or wheezes Cardio: Other: No S4; positive S1-S2; no S3 murmurs rubs or gallops GI: Other: Soft nontender nondistended normoactive bowel sounds Neuro: Other: Cranial nerves 2-12 grossly intact as tested. Motor is 5/5 all extremities. Sensation decreased in stocking glove distribution Extrem: Other: Ulcerative lesion dorsum right great toe DS: Data Data Completed and Pending Completed studies during hospitalization [Text1]: Procedures Insertion of Infusion Device into Superior Vena Cava, Percutaneous Approach (10/08/22) Ultrasonography of Superior Vena Cava, Guidance (10/08/22) Labs on day of discharge: Laboratory Results - last 24 hr 03/24/23 03/24/23 03/25/23 16:14 20:24 06:50 WBC 7.0 RBC 3.58 L Hgb 11.0 L Hct 32.7 L MCV 91.3 MCH 30.7 MCHC 33.6 RDW 12.7 Plt Count 258 MPV 9.9 Immature Gran % (Auto) 0.4 Neut % (Auto) 65.2 Lymph % (Auto) 19.1 L [place] % (Auto) 11.7 H Eos % (Auto) 2.9 Baso % (Auto) 0.7 Lymph # (Auto) 1.3 [place] # (Auto) 0.8 Eos # (Auto) 0.2 Baso # (Auto) 0.1 Abs Immat Gran (auto) 0.03 Absolute Neuts (auto) 4.6 Absolute Nucleated RBC 0.000 Nucleated RBC % (auto) 0.0 Sodium Potassium Chloride Carbon Dioxide Anion Gap BUN Creatinine Estim Creat Clear Calc Estimated GFR POC Glucose 173 H 228 H Fasting Glucose Calcium Total Bilirubin AST ALT Alkaline Phosphatase Total Protein Albumin Random Vancomycin 03/25/23 03/25/23 03/25/23 06:50 06:50 07:15 WBC RBC Hgb Hct MCV MCH MCHC RDW Plt Count MPV Immature Gran % (Auto) Neut % (Auto) Lymph % (Auto) [place] % (Auto) Eos % (Auto) Baso % (Auto) Lymph # (Auto) [place] # (Auto) Eos # (Auto) Baso # (Auto) Abs Immat Gran (auto) Absolute Neuts (auto) Absolute Nucleated RBC Nucleated RBC % (auto) Sodium 138 Potassium 4.9 Chloride 101 Carbon Dioxide 29 Anion Gap 13 BUN 12 Creatinine 0.79 Estim Creat Clear Calc 128.1 Estimated GFR > 60 POC Glucose 118 H Fasting Glucose 124 H Calcium 9.9 Total Bilirubin 0.5 AST 16 ALT 11 Alkaline Phosphatase 82 Total Protein 7.4 Albumin 3.4 L Random Vancomycin 14.7 L 03/25/23 10:56 WBC RBC Hgb Hct MCV MCH MCHC RDW Plt Count MPV Immature Gran % (Auto) Neut % (Auto) Lymph % (Auto) [place] % (Auto) Eos % (Auto) Baso % (Auto) Lymph # (Auto) [place] # (Auto) Eos # (Auto) Baso # (Auto) Abs Immat Gran (auto) Absolute Neuts (auto) Absolute Nucleated RBC Nucleated RBC % (auto) Sodium Potassium Chloride Carbon Dioxide Anion Gap BUN Creatinine Estim Creat Clear Calc Estimated GFR POC Glucose 166 H Fasting Glucose Calcium Total Bilirubin AST ALT Alkaline Phosphatase Total Protein Albumin Random Vancomycin Preliminary micro results at discharge 03/22/23 20:01 Blood Culture - Preliminary Blood - Venous No growth after 48 hours. 03/22/23 20:01 Blood Culture - Preliminary Blood - Venous No growth after 48 hours. Discharge Plan Discharge Anticipated Discharge Date/Time: 03/25/23 11:28 Patient Disposition: Home Health Service Discharge Diagnosis: Chronic right great toe osteomyelitis Referrals: [facility] [Other] - 1 Week [facility] [Other] - 1 Week (Last dose letter provided by integration project manager) Valery Berrios MD [Primary Care Provider] - 1 Week Discharge Medications: New doxycycline hyclate 100 mg tablet 100 mg PO BID Qty: 60 0RF Continued simvastatin 40 mg tablet 1 tab PO DAILY insulin glargine [Lantus Solostar U-100 Insulin] 100 unit/mL (3 mL) insulin pen 55 unit subcut BEDTIME albuterol sulfate [ProAir HFA] 90 mcg/actuation HFA aerosol inhaler 2 puff PO Q4-6H PRN (Reason: Wheezing) lisinopril-hydrochlorothiazide 20-12.5 mg Tablet 1 tab PO DAILY methadone [Methadone Intensol] 10 mg/mL Concentrate 115 mg PO DAILY Humalog U-100 Insulin 100 unit/mL Cartridge 2 - 12 unit SUBCUT TIDAC (DME) FreeStyle Oumar 2 Sensor Kit See Rx Instructions .ROUTE Q2W Qty: 1 Rx Instructions: As directed (DME) pen needle, diabetic [Easy Touch] 32 gauge x 1/4 needle See Rx Instructions .ROUTE .MEDSUPPLY Qty: 50 Rx Instructions: As directed 5 times a day (DME) lancets [TRUEplus Lancets] 33 gauge misc See Rx Instructions .ROUTE QID Qty: 100 Rx Instructions: As directed 4 times a day (DME) FreeStyle Lite Strips Strip See Rx Instructions .ROUTE QID Qty: 10 Rx Instructions: As directed 4 times a day (DME) FreeStyle Oumar 2 [place] Misc See Rx Instructions .ROUTE DAILY Qty: 1 Rx Instructions: As directed Discharge Orders: Discharge Order (Routine); Ordered 03/25/23 Ordered By: Mumtaz Gutiérrez Diet: Advance to usual diet Activity on Discharge: As tolerated Stand Alone Forms: Patient Portal Discharge page Care Plan Goals: Continue all medicines as taken before hospitalization Health Concerns: At doxycycline 100 mg twice daily for 1 month Plan of Treatment: Follow-up with wound clinic as scheduled Assessment: See discharge summary
== END 2023-03-25 12:42 | disposition home health service (06) | DRG 720 ==
LOC: HO.ED 21:20 → HO.EDOVER 21:21 → HO.S3 21:27
PROVIDERS: Admitting Provider Student in an Organized Health Care Education/Training Program; Emergency Provider Emergency Medicine; PCP Internal Medicine; Visit Provider Hospitalist
DX: A41.9 Sepsis, unspecified organism (principal); E11.621 Type 2 diabetes mellitus with foot ulcer; L97.519 Non-pressure chronic ulcer of other part of right foot with unspecified severity; E11.65 Type 2 diabetes mellitus with hyperglycemia; E11.69 Type 2 diabetes mellitus with other specified complication; I10 Essential (primary) hypertension; M86.671 Other chronic osteomyelitis, right ankle and foot; E11.628 Type 2 diabetes mellitus with other skin complications; L03.115 Cellulitis of right lower limb; E78.2 Mixed hyperlipidemia; F11.20 Opioid dependence, uncomplicated; K21.9 Gastro-esophageal reflux disease without esophagitis; Z79.4 Long term (current) use of insulin; Z79.899 Other long term (current) drug therapy
CPT/HCPCS: 36415; 73620; 80048; 80053; 80076; 80202; 81003; 82947; 83605; 83690; 85025; 87040; 99284; J1650; J2543; J3370; J3371

== ENCOUNTER 2023-04-07 15:42 | Outpatient (REF) | payer MEDICAID, SELFPAY | END 2023-04-07 15:43 | disposition home or self-care (01) | LOC: HO.LNP 15:42 | PROVIDERS: Visit Provider Surgery | DX: S91.101A Unspecified open wound of right great toe without damage to nail, initial encounter (principal); X58.XXXA Exposure to other specified factors, initial encounter; Y93.9 Activity, unspecified; Y92.9 Unspecified place or not applicable; Y99.9 Unspecified external cause status | CPT/HCPCS: 87070; 87073; 87077; 87147; 87186; 87205 ==

== ENCOUNTER 2023-04-20 12:44 | Outpatient (REF) | payer MEDICAID, SELFPAY ==
[2023-04-20 14:34] LABS: MANUAL DIFF FLAG NO
[2023-04-20 14:38] LABS: Basophils Absolute Auto 0.1 X10*3/uL (0.0-0.2); Basophils Percent Auto 0.4 % (0-2); Eosinophils Absolute Auto 0.1 X10*3/uL (0.0-0.4); Eosinophils Percent Auto 0.3 % (0-4); Hematocrit 32.8 % (42.0-52.0); Hemoglobin 10.8 g/dl (14.0-18.0); Imm Gran Abs Auto 0.09 X10*3/uL (0.00-0.03); Imm Gran Pct Auto 0.6 % (0.0-0.4); Lymphocytes Absolute Auto 1.2 X10*3/uL (1.2-4.9); Lymphocytes Percent Auto 7.4 % (20-40); Mean Corpuscular HGB Conc 32.9 g/dl (31.0-36.0); Mean Corpuscular Hemoglobin 30.2 pg (27.0-33.0); Mean Corpuscular Volume 91.6 fL (80.0-98.0); Mean Platelet Volume 10.6 fL (9.4-12.4); Monocytes Absolute Auto 1.5 X10*3/uL (0.1-1.2); Monocytes Percent Auto 9.2 % (2-11); Neutrophils Absolute Auto 13.2 x10*3/uL (2.0-8.3); Neutrophils Percent Auto 82.1 % (45-73); Platelet Count 251 X10*3/uL (160-400); Red Blood Count 3.58 X10*6/uL (4.60-5.80); Red Cell Distribution Width 12.8 % (11.0-16.0); White Blood Count 16.1 X10*3/uL (4.8-10.8)
[2023-04-20 15:35] LABS: Iron 18 mcg/dL (45-160); Percent Iron Saturation 7 % (15-50); Total Iron Binding Capacity 253 mcg/dL (228-428); Unsaturated Iron Binding 235 ug/dL
[2023-04-20 15:42] LABS: Ferritin 394 ng/mL (20-250)
== END 2023-04-20 12:45 | disposition home or self-care (01) ==
LOC: HO.CHCLDS 12:44
PROVIDERS: Visit Provider Internal Medicine
DX: M86.4 Chronic osteomyelitis with draining sinus (principal); D64.9 Anemia, unspecified
CPT/HCPCS: 36415; 82728; 83540; 85025

== ENCOUNTER 2023-04-21 09:19 | Outpatient (AMB) | payer MEDICAID, SELFPAY ==
--- NOTE | 2023-04-21 09:24 | A.OFFVIS_ITS ---
Intake VS Expanded 04/21/23 09:29 Height 5 ft 8 in Weight 238 lb 12.17 oz BMI 36.3 Intake Visit Reasons: T2DM Allergies bee venom protein (honey bee) Allergy (Severe, Verified 11/20/22 11:42) Anaphylaxis erythromycin base Allergy (Intermediate, Verified 11/20/22 11:42) Rash Iodinated Contrast Media Adverse Reaction (Intermediate, Verified 11/20/22 11:42 ) Shortness of Breath HPI Nutrition Presentation Details Pt presents for MNT follow up for T2DM Pt reports eating well, working on following healthy plate method and reducing on sugars from beverages. Pt has a wound and is followed by wound care. Pt reports taking Yared twice/day mixed with water. Most Recent Diabetes Results: Microalb/Creat Ratio 23.0 ug/mg cr 12/31/22 Cholesterol 159 mg/dL 12/31/22 HDL Cholesterol 34 mg/dL 12/31/22 Triglycerides 90 mg/dL 12/31/22 Creatinine 0.79 mg/dL (0.5-1.4) 03/25/23 Blood Urea Nitrogen 12 mg/dL (9-16) 03/25/23 Sodium 138 mmol/L (135-145) 03/25/23 Potassium 4.9 mmol/L (3.3-5.1) 03/25/23 Chloride 101 mmol/L (96-108) 03/25/23 Carbon Dioxide 29 mmol/L (22-29) 03/25/23 Calcium 9.9 mg/dL (8.4-10.2) 03/25/23 AST 16 U/L (5-37) 03/25/23 ALT 11 U/L (0-40) 03/25/23 Total Protein 7.4 g/dL (6.5-8.0) 03/25/23 Albumin 3.4 g/dL (3.5-5.0) L 03/25/23 [facility] Medical History Asthma Cellulitis High cholesterol HTN (hypertension) IDDM (insulin dependent diabetes mellitus) Kidney stones Osteomyelitis Uncontrolled diabetes mellitus with hyperglycemia Surgical History History of lithotripsy Social History Household Members: Other Housing: House Do you presently have visiting nurse or other home services: Yes Patient Tobacco Use Status: Former Tobacco user Tobacco use type: Cigarette Substance Use Type: Crack/Cocaine and Marijuana service: No Current occupational status: unemployed Assessment & Plan Assessment & Plan (1) Uncontrolled diabetes mellitus with hyperglycemia: Code(s): E11.65 - Type 2 diabetes mellitus with hyperglycemia Plan: Educate Pt on reducing sugar from beverages and following healthy plate method ? Used wt : 110 kg Est kcal as per MSJ: 2305 (40% carb, 30% fat/prot) Est fluid needs: 2761 ml/d (25 ml/kg bw) Rec fiber: increase to 8-10 g per day and gradually increase to 35 g or as tolerated Rec Na: < 2000 mg /d Educate patient on: (R= Reviewed, V = verbalizes understanding N/R= Needs review N/A= not applicable) * Food sources of carbohydrates and serving adequate serving sizes : R * Difference between complex carbohydrates and simple carbohydrates, role of fiber: R V * Differences between fats (MUFA/PUFA/saturated fats, trans fats) and food sources of various fats: N/R * Food sources of sodium and salt and healthy modifications for heart health and kidney health: N/R * Vitamins and minerals: N/R * How to interpret food labels: R * Healthy Plate method concept: R V * Physical activity: benefits and precaution: R V Patient Instructions: Include a protein supplement once a day Have a probiotic source of foods at least once a day Continue working on reducing sugars (from juices/juice drinks/sodas , sugar containing beverages) Continue working with your doctors with managing blood sugar level Make appt with tile setter supervisor for further evaluation Coding Level of Care Code Nutr Indiv Subseq (35869) Diagnoses Uncontrolled diabetes mellitus with hyperglycemia E11.65 Time Spent (min) 30
[2023-04-21 09:29] VITALS: BMI 36.3
== END 2023-04-21 10:04 | disposition home or self-care (01) ==
PROVIDERS: PCP Internal Medicine; Referring Provider Internal Medicine Endocrinology, Diabetes & Metabolism; Visit Provider Dietitian, Registered
DX: E11.65 Type 2 diabetes mellitus with hyperglycemia (principal)

== ENCOUNTER → 2023-04-21 09:19 | Outpatient (BNVA) | payer MEDICAID, SELFPAY | PROVIDERS: Visit Provider Dietitian, Registered | DX: E11.65 Type 2 diabetes mellitus with hyperglycemia (principal) | CPT/HCPCS: 97803 ==

== ENCOUNTER 2023-06-23 09:27 | Outpatient (AMB) | payer MEDICAID, SELFPAY ==
--- NOTE | 2023-06-23 09:36 | A.OFFVIS_ITS ---
Intake VS Expanded 06/23/23 09:39 Height 5 ft 8 in Weight 245 lb 9.519 oz BMI 37.3 Intake Visit Reasons: DM2 confirmed Allergies bee venom protein (honey bee) Allergy (Severe, Verified 11/20/22 11:42) Anaphylaxis erythromycin base Allergy (Intermediate, Verified 11/20/22 11:42) Rash Iodinated Contrast Media Adverse Reaction (Intermediate, Verified 11/20/22 11:42) Shortness of Breath HPI Nutrition Presentation Details Pt presents for MNT for T2DM. Pt was referred by Dr. Jimenez, roof truss machine tender Pt has appt pending with roof truss machine tender on 07/01/2023 Pt reports his sister bought a screener and blender for him to make shakes but he has not tried it yet. He verbalizes working on reducing on salt intake and incorporating foods with probiotics. Pt reports following up with wound clinic Typical meal intake: 4 am yogurt and fruit B: oatmeal with half and half or yogurt and fruit Gets Meals on wheels Wednesday through Wednesday dinner: pork chop or chicken with fried onions and broccoli, eggplant or squash snacks on crackers, popcorn sometimes roommate cooks Pt has pending appt with roof truss machine tender on 07/01/23 for further evaluation to discuss BG reports having 2 soft bowel movements daily Pt reports taking a daily MVI daily Most Recent Diabetes Results: Creatinine 0.79 mg/dL (0.5-1.4) 03/25/23 Blood Urea Nitrogen 12 mg/dL (9-16) 03/25/23 Sodium 138 mmol/L (135-145) 03/25/23 Potassium 4.9 mmol/L (3.3-5.1) 03/25/23 Chloride 101 mmol/L (96-108) 03/25/23 Carbon Dioxide 29 mmol/L (22-29) 03/25/23 Calcium 9.9 mg/dL (8.4-10.2) 03/25/23 AST 16 U/L (5-37) 03/25/23 ALT 11 U/L (0-40) 03/25/23 Total Protein 7.4 g/dL (6.5-8.0) 03/25/23 Albumin 3.4 g/dL (3.5-5.0) L 03/25/23 [facility] Medical History (Updated 09/14/23 @ 15:03 by BHUPINDER Villalta) IDDM (insulin dependent diabetes mellitus) Osteomyelitis of great toe of right foot Uncontrolled diabetes mellitus with hyperglycemia Osteomyelitis Asthma Cellulitis High cholesterol Kidney stones HTN (hypertension) Surgical History History of lithotripsy Social History Household Members: Other Housing: House Do you presently have visiting nurse or other home services: Yes Patient Tobacco Use Status: Former Tobacco user Tobacco use type: Cigarette Substance Use Type: Crack/Cocaine and Marijuana service: No Current occupational status: unemployed Assessment & Plan Assessment & Plan (1) Uncontrolled diabetes mellitus with hyperglycemia: Code(s): E11.65 - Type 2 diabetes mellitus with hyperglycemia Plan: Educate Pt on reducing sugar from beverages and following healthy plate method ? Used wt : 110 kg Est kcal as per MSJ: 2305 (40% carb, 30% fat/prot) Est fluid needs: 2761 ml/d (25 ml/kg bw) Rec fiber: increase to 8-10 g per day and gradually increase to 35 g or as tolerated Rec Na: < 2000 mg /d Educate patient on: (R= Reviewed, V = verbalizes understanding N/R= Needs review N/A= not applicable) * Food sources of carbohydrates and serving adequate serving sizes : R * Difference between complex carbohydrates and simple carbohydrates, role of fiber: R V * Differences between fats (MUFA/PUFA/saturated fats, trans fats) and food ronny rces of various fats: R * Food sources of sodium and salt and healthy modifications for heart health and kidney health: R * Vitamins and minerals: N/R * How to interpret food labels: R * Healthy Plate method concept: R V * Physical activity: benefits and precaution: R V Patient Instructions: Drink water with meals Reduce on intake of pastries - have a yogurt instead Choose high fiber sources of foods (whole grain bread, sweet potatoes, beans, cooked vegetables, canned rinsed with cold water) Include lean protein in your diet : boiled egg or scrambled eggs with spinach coupons for aletha and for protein shake (glucerna ) given Coding Level of Care Code Nutr Indiv Subseq (79104) Diagnoses Uncontrolled diabetes mellitus with hyperglycemia E11.65 Time Spent (min) 20
[2023-06-23 09:39] VITALS: BMI 37.3
== END 2023-06-23 10:20 | disposition home or self-care (01) ==
PROVIDERS: PCP Internal Medicine; Visit Provider Dietitian, Registered
DX: E11.65 Type 2 diabetes mellitus with hyperglycemia (principal)

== ENCOUNTER → 2023-06-23 09:27 | Outpatient (BNVA) | payer MEDICAID, SELFPAY | PROVIDERS: PCP Internal Medicine; Visit Provider Dietitian, Registered | DX: E11.65 Type 2 diabetes mellitus with hyperglycemia (principal) | CPT/HCPCS: 97803 ==

== ENCOUNTER 2023-07-01 09:05 | Outpatient (AMB) | payer MEDICAID, SELFPAY ==
[2023-07-01 09:13] VITALS: BP 132/76; PULSE 76; BMI 37.9
--- NOTE | 2023-07-01 09:13 | MHC.OFFVIS ---
Intake Vital Signs 07/01/23 09:13 Height 5 ft 8 in Weight 249 lb 9.012 oz BMI 37.9 BP 132/76 Blood Pressure Location Lt brachial Position Sitting Pulse 76 Pulse Source Pulse Oximeter Intake Visit Reasons: DM2, pt confirmed Intake Note: Patient present today to follow up on Type 2 Diabetes Mellitus. Patient receives DME supplies through: Pharmacy Last Diabetic Eye exam: 10/2022 Last Podiatry Visit: 06/2023 Random Glucose: 239mg/dl HgA1C: 5.9% Breakfast And Room Attendant Required: No Accompanied by: Self / Same As Patient Allergies bee venom protein (honey bee) Allergy (Severe, Verified 07/01/23 09:19) Anaphylaxis erythromycin base Allergy (Intermediate, Verified 07/01/23 09:19) Rash Iodinated Contrast Media Adverse Reaction (Intermediate, Verified 07/01/23 09:19) Shortness of Breath Medication List - Last Reconciled 07/01/23 by Yoav Jimenez MD albuterol sulfate 90 mcg/actuation (ProAir HFA) 2 puffs PO Q4-6H PRN amlodipine 5 mg PO QAM blood sugar diagnostic (FreeStyle Lite Strips) As directed 4 times a day diclofenac sodium 1% 2 grams topical TID doxycycline hyclate 100 mg PO BID flash glucose scanning reader (FreeStyle Oumar 2 [place]) As directed flash glucose sensor (FreeStyle Oumar 2 Sensor kit) As directed insulin glargine (Lantus Solostar U-100 Insulin) 55 units subcut BEDTIME insulin lispro (Humalog U-100 Insulin) 2 - 12 units subcut TIDAC insulin lispro 2 - 12 units subcut TID lancets (TRUEplus Lancets) As directed 4 times a day lisinopril-hydrochlorothiazide 20-12.5 mg 1 tab PO DAILY methadone (Methadone Intensol) 115 mg PO DAILY [id number]-wgs-kynw fum-folic ac 7.5 mg iron-400 mcg 1 tab PO QAM pen needle, diabetic (Easy Touch) As directed 5 times a day simvastatin 1 tab PO DAILY vitamin A 1 cap PO DAILY zinc sulfate 50 mg PO DAILY HPI HPI Comments History of Present Illness Details 58 YO M who is seen in consultation for T2DM at the request of PCP. Initially diagnosed with T2DM in 15 yrs . Was initially started on treatment with metformin- didn't work and Actos stopped on own . Current regimen 55 units Lantus Humalog 15-18 units . Oumar download shows she is using the sensor 88% of the time. Average glucose is 197 with G mi a of 8% and variability of 27.6%. 38% range with 46% hyperglycemia and 16% very hyperglycemic and no hypoglycemia Reports low sugars in past but not now . Most recent A1C 7.5 , Family history of T2DM in father . Uncle had Type 2 DM Has eyes checked yearly, last eye exam has appt in near future , denies retinopathy. Has neuropathy, followed by wound clinic Denies nephropathy, on BEATA/ARB. Has HLD, on statin. Denies CAD. Had diabetes education by PCP 2 yrs ago . Had episodes of pancreatis in past Followed by wound clinic for R LL wound and infection. Has not been taking simvastatin regular because of interaction with antibiotics for lower extremity wound [facility] Medical History (Updated 07/01/23 @ 09:18 by Rupa Kaufman) Amputated toe IDDM (insulin dependent diabetes mellitus) Osteomyelitis of great toe of right foot Uncontrolled diabetes mellitus with hyperglycemia Osteomyelitis Asthma Cellulitis High cholesterol Kidney stones HTN (hypertension) Surgical History History of lithotripsy Social History Household Members: Other Housing: House Do you presently have visiting nurse or other home services: Yes Patient Tobacco Use Status: Former Tobacco user Tobacco use type: Cigarette Substance Use Type: Crack/Cocaine and Marijuana service: No Current occupational status: unemployed Physical Exam Vital Signs: Last Vital Signs Pulse 76 07/01/23 09:13 BP 132/76 07/01/23 09:13 BMI result Body Mass Index 37.9 Absence of Cushingoid features. Absence of acromegalic features. Neck exam reveals nl size thyroid about 15 gms. No thyroid nodules palpable. No carotid bruits present. Lungs CTA. Heart S1 S2, Reg R/R. No M/R/ G. Skin exam reveals absence of vitiligo or acanthosis nigricans. Abdominal exam reveals Soft NT/ND with NA BS. No organomegaly present. Neck Other: . Extrem Other: Visual exam of foot performed. RLE is bandaged and followed by wound clinic There is 2+ edema lower extremities. Pulses are palpable but weak and 1-. R 1st toe banaged and L 5th toe No onchomycosis, no callouses.Pulses 2 + distally Sensation decreased to monofilament exam. Vibratory sensation sensed is decreased with 128 Hz tuning fork. LLE with callus on 1st toe Results AMB Hemoglobin A1c AMB Hemoglobin A1c 5.9 % Last Edit by Rupa Kaufman on 07/01/23 09:38 Results Reviewed Results Reviewed: 07/01/23 09:25 Glucose, Whole Blood Routine Laboratory Last Values Glucose (Clinic) 239 mg/dL (60-115) H 07/01/23 09:25 Assessment & Plan Assessment & Plan (1) IDDM (insulin dependent diabetes mellitus): (2) Uncontrolled diabetes mellitus with hyperglycemia: Code(s): E11.65 - Type 2 diabetes mellitus with hyperglycemia Plan: This is a 57-year-old white male with a history of diabetes being treated with basal-bolus insulin with fair glycemic control with history of osteomyelitis along with microvascular complications of neuropathy Plan is to reinitiate metformin 1000 mg b.i.d. Could consider adding an SGLT 2 inhibitor in future. Will increase Lantus to 65 units at possibly 70 units to keep point care in a.m. <180 Patient should follow up with clinical unit educator.. Patient is not a candidate for G LP 1 considering episodes of pancreatitis in the past. Will recheck lipid profile in 6 weeks once patient resumes simvastatin Orders: Orders Lipid Panel 6 Weeks E11.9 - Type 2 diabetes mellitus without complications AMB Hemoglobin A1c Today E11.9 - Type 2 diabetes mellitus without complications Medications: New metformin 1,000 mg PO BID 60 tabs 5RF Changed From insulin glargine (Lantus Solostar U-100 Insulin) 55 units subcut BEDTIME To insulin glargine (Lantus Solostar U-100 Insulin) 65 units subcut BEDTIME Coding Level of Care Code Est Pt Level 4 (32909) Diagnoses IDDM (insulin dependent diabetes mellitus) Uncontrolled diabetes mellitus with hyperglycemia E11.65
[2023-07-01 09:29] LABS: Glucose, Whole Blood 239 mg/dL (60-115)
== END 2023-07-01 09:42 | disposition home or self-care (01) ==
PROVIDERS: PCP Internal Medicine; Visit Provider Internal Medicine Endocrinology, Diabetes & Metabolism
DX: E11.65 Type 2 diabetes mellitus with hyperglycemia (principal); E11.9 Type 2 diabetes mellitus without complications
CPT/HCPCS: 99214

== ENCOUNTER → 2023-07-01 09:05 | Outpatient (BNVA) | payer MEDICAID, SELFPAY | PROVIDERS: PCP Internal Medicine; Visit Provider Internal Medicine Endocrinology, Diabetes & Metabolism | DX: E11.65 Type 2 diabetes mellitus with hyperglycemia (principal); Z79.4 Long term (current) use of insulin | CPT/HCPCS: 82947; 83036; 99212 ==

== ENCOUNTER 2023-08-05 17:55 | Outpatient (REF) | payer MEDICAID, SELFPAY | END 2023-08-05 17:56 | disposition home or self-care (01) | LOC: HO.HHCLNP 17:55 | PROVIDERS: Visit Provider Internal Medicine | DX: R30.9 Painful micturition, unspecified (principal) | CPT/HCPCS: 87086; 87088; 87186 ==

== ENCOUNTER 2024-01-04 12:25 | Outpatient (REF) | payer MEDICAID, SELFPAY ==
[2024-01-04 18:59] LABS: MANUAL DIFF FLAG NO
[2024-01-04 19:13] LABS: Basophils Absolute Auto 0.1 X10*3/uL (0.0-0.2); Basophils Percent Auto 0.6 % (0-2); Eosinophils Absolute Auto 0.9 X10*3/uL (0.0-0.4); Eosinophils Percent Auto 7.3 % (0-4); Hematocrit 33.3 % (42.0-52.0); Hemoglobin 10.8 g/dl (14.0-18.0); Imm Gran Abs Auto 0.09 X10*3/uL (0.00-0.03); Imm Gran Pct Auto 0.8 % (0.0-0.4); Lymphocytes Absolute Auto 2.2 X10*3/uL (1.2-4.9); Lymphocytes Percent Auto 18.8 % (20-40); Mean Corpuscular HGB Conc 32.4 g/dl (31.0-36.0); Mean Corpuscular Hemoglobin 30.6 pg (27.0-33.0); Mean Corpuscular Volume 94.3 fL (80.0-98.0); Mean Platelet Volume 10.4 fL (9.4-12.4); Monocytes Absolute Auto 1.3 X10*3/uL (0.1-1.2); Monocytes Percent Auto 11.2 % (2-11); Neutrophils Absolute Auto 7.3 x10*3/uL (2.0-8.3); Neutrophils Percent Auto 61.3 % (45-73); Platelet Count 303 X10*3/uL (160-400); Red Blood Count 3.53 X10*6/uL (4.60-5.80); Red Cell Distribution Width 13.5 % (11.0-16.0); Reticulocyte Percent 3.3 % (0.5-1.8); Reticulocytes Absolute 0.117 X10*6/uL (0.026-0.095); White Blood Count 11.8 X10*3/uL (4.8-10.8)
[2024-01-04 19:32] LABS: Alanine Aminotransferase 12 U/L (0-40); Albumin Level 3.7 g/dL (3.5-5.0); Alkaline Phosphatase 90 U/L (39-117); Anion Gap 12 (12-20); Aspartate Amino Transferase 20 U/L (5-37); Bilirubin Total 0.3 mg/dL (0.0-1.0); Blood Urea Nitrogen 19 mg/dL (9-16); Calcium 9.6 mg/dL (8.4-10.2); Carbon Dioxide 31 mmol/L (22-29); Chloride 101 mmol/L (96-108); Estimated Glomerular Filt Rate > 60; Glucose Random 102 mg/dL (60-115); Iron 62 mcg/dL (45-160); Percent Iron Saturation 21 % (15-50); Potassium 5.1 mmol/L (3.3-5.1); Sodium 139 mmol/L (135-145); Total Iron Binding Capacity 301 mcg/dL (228-428); Total Protein 8.6 g/dL (6.5-8.0); Unsaturated Iron Binding 239 ug/dL
[2024-01-04 19:48] LABS: Ferritin 176 ng/mL (20-250); TSH reflex Free T4 4.73 uIU/mL (0.32-4.0)
[2024-01-04 20:29] LABS: Free T4 (Free Thyroxine) 0.87 ng/dL (0.71-1.85)
== END 2024-01-04 12:26 | disposition home or self-care (01) ==
LOC: HO.HHCL 12:25
PROVIDERS: Visit Provider Nurse Practitioner Family
DX: D64.9 Anemia, unspecified (principal); R06.09 Other forms of dyspnea
CPT/HCPCS: 36415; 80053; 82728; 83540; 84439; 84443; 85025; 85045

== ENCOUNTER 2024-01-05 10:17 | Outpatient (REF) | payer MEDICAID, SELFPAY ==
--- NOTE | ~2024-01-05 | XR_ITS ---
EXAMINATION: 1. RADIOGRAPHS CHEST 2. RADIOGRAPHS RIGHT ELBOW CLINICAL INFORMATION: Pain after fall one week ago. Cough, wheezing and shortness of breath. COMPARISON: None TECHNIQUE: 2 views of the chest and 3 views of the right elbow were obtained. FINDINGS: Chest: Cardiac silhouette is normal in size. The lungs are well aerated. Subtle linear opacity left lung base is nonspecific. No lobar consolidation. No pleural effusion or pneumothorax. Minimal degenerative changes of the spine. Right elbow: No fracture or dislocation. No joint effusion. Mild degenerative changes of the right elbow. No localized soft tissue swelling. No radiopaque foreign body. XR/XR chest 2V IMPRESSION: 1. Subtle linear opacity of the left lung base is nonspecific but suspected to represent atelectasis. Follow-up imaging can be obtained to ensure resolution. 2. Mild degenerative changes of the right elbow.
--- NOTE | ~2024-01-05 | XR_ITS ---
EXAMINATION: 1. RADIOGRAPHS CHEST 2. RADIOGRAPHS RIGHT ELBOW CLINICAL INFORMATION: Pain after fall one week ago. Cough, wheezing and shortness of breath. COMPARISON: None TECHNIQUE: 2 views of the chest and 3 views of the right elbow were obtained. FINDINGS: Chest: Cardiac silhouette is normal in size. The lungs are well aerated. Subtle linear opacity left lung base is nonspecific. No lobar consolidation. No pleural effusion or pneumothorax. Minimal degenerative changes of the spine. Right elbow: No fracture or dislocation. No joint effusion. Mild degenerative changes of the right elbow. No localized soft tissue swelling. No radiopaque foreign body. XR/XR elbow RT min 3V IMPRESSION: 1. Subtle linear opacity of the left lung base is nonspecific but suspected to represent atelectasis. Follow-up imaging can be obtained to ensure resolution. 2. Mild degenerative changes of the right elbow.
== END 2024-01-05 10:18 | disposition home or self-care (01) ==
LOC: HO.XRAY 10:17
PROVIDERS: PCP Nurse Practitioner Family; Visit Provider Nurse Practitioner Family
DX: R06.09 Other forms of dyspnea (principal); M25.521 Pain in right elbow; R05.9 Cough, unspecified
CPT/HCPCS: 71046; 73080

== ENCOUNTER → 2024-02-07 08:24 | Outpatient (REF) | payer MEDICAID, SELFPAY ==
--- NOTE | 2024-02-07 08:27 | CA_ITS ---
Transthoracic Echocardiogram Patient (Last, First, Middle): Bam Wise, Gender: Male Date of : 1965 Age: 58 Procedure Date: 02/07/2024 Procedure Type: Transthoracic Echocardiogram Location: OP Height: 175.26 cm Weight: 122.47 kg BSA: 2.35 m2 Heart Rate: bpm BP: 144 / 82 mmHg Advertising Copywriter: SHELIA Referring MD: Vicenta Nielsen TAP DANCER Symptoms: MESA R06.09 HX HTN, DM 11.TOBACCO USE ASTHMA MORN OBS Study Quality: Fair, contrast ECG Rhythm: Sinus Conclusions: - The left ventricular systolic function is low normal. The visually estimated ejection fraction is between 50-55%. - Moderately increased right ventricular cavity size. - No obvious valvular pathology seen on this study. - The inferior vena cava is mildly dilated and collapses less than 50% with inspiration. Findings Procedure Information Contrast agent, definity, is being given per protocol without apparent complications. Left Ventricle Normal left ventricular cavity size. There is mildly increased left ventricular wall thickness. The left ventricular systolic function is low normal. The visually estimated ejection fraction is between 50-55%. There is no evidence of regional wall motion abnormalities. Diastolic function is normal for age. Right Ventricle Moderately increased right ventricular cavity size. There is normal right ventricular systolic function. Atria Both atria are normal in size. Aortic Valve There is a normal trileaflet aortic valve. There is mild calcification of the aortic valve. There is no aortic valve stenosis. There is no aortic valve regurgitation. Mitral Valve The mitral valve appears normal. There is no mitral valve regurgitation. There is no mitral valve stenosis. Pulmonic Valve The pulmonic valve is likely normal. Tricuspid Valve Normal tricuspid valve structure. There is trace tricuspid valve regurgitation. There is no evidence of pulmonary hypertension. Great Vessels The asc aorta is normal in size. Venous The inferior vena cava is mildly dilated and collapses less than 50% with inspiration. Pericardium/Pleural There is no evidence of pericardial effusion. Prior Study Comparison No prior study available for comparison. Recommendations, Care & Conclusions No obvious valvular pathology seen on this study. Measurements 2D Linear Measurements IVSd: 1.07 0.6-0.9/0.6-1.0 cm LVIDd: 5.47 3.9-5.3/4.2-5.9 cm LVIDd Index: 2.33 2.4-3.2/2.2-3.1 cm/m2 LVIDs: 3.63 2.0-3.6 cm LVPWd: 1.07 0.7-1.1 cm LA Diam: 4.30 2.7-3.8/3.0-4.0 cm LAIDs Index: 1.83 1.5-2.3 cm/m2 LV Mass: 288.13 67-162/88-224 g LV Mass Index: 122.61 43-95/49-115 g/m2 LVOT Diam: 2.30 3.0+(-)1.3 cm 2D Systolic Function EF 4C: 52.80 >55% EF 2C: 57.10 >55% EF BiP: 55.10 >55% Mitral Valve MV VTI: 0.43 MV Pk Regis: 1.31 MV Mn Regis: 0.86 MV Pk Grad: 7.00 MV Mn Grad: 3.00 MV Pk E: 1.19 MV PK A: 1.08 MV Decel Time: 228.00 E/A: 1.10 E'Lateral: 11.10 E'Medial: 7.72 E/E' Med: 15.40 E/E' Lat: 10.70 PHT: 67.00 MVA PHT: 3.28 MVA Continuity: 2.56 Decel [place]: 5.21 Aortic Valve AoV Pk Regis: 1.92 AoV Mn Regis: 1.33 AoV VTI: 0.39 AoV Pk Grad: 15.00 Aov Mn Grad: 8.00 DAY Cont.VTI: 2.79 LVOT LVOT Pk Regis: 1.11 LVOT Mn Regis: 0.72 LVOT VTI: 0.27 LVOT Pk Grad: 5.00 LVOT Mn Grad: 2.00 LVOT Diam: 2.30 LVOT Area: 4.15 Diastolic Function MV Pk E: 1.19 MV Pk A: 1.08 E/A: 1.10 E'Medial: 7.72 E/E' Med: 15.40 E' Laterial: 11.10 E/E' Lat: 10.70 Right Ventricle TAPSE (mm): 30.50 TVS' Regis: 15.90 Tricuspid Valve TR Pk Regis: 2.51 TR Pk Grad: 25.00 RA Press: 15.00 RVSP: 40.00 Great Vessels Aorta Sinus of Valsalva: 3.66 2.0-3.[address] Ridge: 2.52 1.7-3.4 cm Ao Asc: 3.70 2.1-3.4 cm Updated in Other Vendor System with Status of Final Oleg Denny MD electronically signed on 02/07/2024 11:30:54 AM with status of Final
== END ==
LOC: HO.CARD 08:24
PROVIDERS: PCP Nurse Practitioner Family; Visit Provider Nurse Practitioner Family
DX: R06.09 Other forms of dyspnea (principal)
CPT/HCPCS: 93306; Q9957

== ENCOUNTER → 2024-02-07 08:27 | Outpatient (BNV) | payer MEDICAID, SELFPAY | PROVIDERS: PCP Nurse Practitioner Family; Visit Provider Internal Medicine | DX: R06.09 Other forms of dyspnea (principal) | CPT/HCPCS: 93306 ==

== ENCOUNTER 2024-02-15 11:05 | Emergency (ER) | payer MEDICAID, SELFPAY ==
[2024-02-15 11:17] VITALS: BP 164/86; BP 182/100; PULSE 100; PULSE 107; RESP 18; TEMP 37.6; O2SAT 92; O2SAT 94; BMI 41.0
--- NOTE | 2024-02-15 12:45 | ED.GENADULT ---
HPI - General Adult General Chief complaint: General Medical Stated complaint: R FOOT PAIN, H/O INF PER EMS Time Seen by Provider: 02/15/24 12:36 Source: patient and EMS Mode of arrival: EMS Limitations: no limitations History of Present Illness HPI narrative: 58-year-old male history of insulin-dependent diabetes, HTN, HLD, GERD, chronic right foot infection with osteomyelitis that he normally follow with Wound Clinic, patient wanted to go to [facility] where they care for his wound but was transported to [facility] by EMS, wanted to be transferred to [facility] where he has his previous care and his surgeon Dr. Escalante. patient at this point is anxious and declining any further workup, patient is calling his sister to come and take him to [facility]. Related Data Home Medications ?Medication ?Instructions ?Recorded ?Confirmed albuterol sulfate 90 mcg/actuation 2 puff PO Q4-6H PRN Wheezing 01/01/22 03/22/23 aerosol inhaler (ProAir HFA) simvastatin 40 mg tablet 1 tab PO DAILY 01/01/22 03/22/23 blood sugar diagnostic (FreeStyle #10 ea 12/17/22 12/17/22 Lite Strips) flash glucose scanning reader #1 ea 12/17/22 12/17/22 (FreeStyle Oumar 2 [place]) flash glucose sensor (FreeStyle #1 12/17/22 12/17/22 Oumar 2 Sensor kit) lancets 33 gauge (TRUEplus Lancets) #100 ea 12/17/22 12/17/22 pen needle, diabetic 32 gauge x #50 12/17/22 12/17/22/ (Easy Touch) insulin lispro 100 unit/mL 2 - 12 unit subcut TIDAC 03/22/23 03/22/23 subcutaneous cartridge (Humalog U-100 Insulin) lisinopril 20 1 tab PO DAILY 03/22/23 03/22/23 mg-hydrochlorothiazide 12.5 mg tablet methadone 10 mg/mL oral 115 mg PO DAILY 03/22/23 03/23/23 concentrate (Methadone Intensol) amlodipine 5 mg tablet 5 mg PO QAM 07/01/23 diclofenac sodium 1 % topical gel 2 g topical TID 07/01/23 insulin lispro 100 unit/mL 2 - 12 unit subcut TID 09/28/23 subcutaneous pen pflqeekbsmxw-kikkepla-yamm 1 tab PO QAM 07/01/23 fumarate 7.5 mg-folic acid 400 mcg tablet vitamin A 3,000 mcg (10,000 unit) 1 cap PO DAILY 07/01/23 capsule zinc sulfate 50 mg zinc (220 mg) 50 mg PO DAILY 07/01/23 capsule Previous Rx's ?Medication ?Instructions ?Recorded doxycycline hyclate 100 mg tablet 100 mg PO BID #60 tabs 03/25/23 insulin glargine 100 unit/mL (3 65 unit (0.65 mL) subcut BEDTIME 01/09/24 mL) subcutaneous pen (Lantus #15 mL Solostar U-100 Insulin) metformin 1,000 mg tablet 1,000 mg PO BID #60 tabs 02/03/24 Allergies Allergy/AdvReac Type Severity Reaction Status Date / Time bee venom protein (honey bee) Allergy Severe Anaphylaxis Verified 02/15/24 11:19 erythromycin base Allergy Intermediate Rash Verified 02/15/24 11:19 Iodinated Contrast Media AdvReac Intermediate Shortness Verified 02/15/24 11:19 of Breath Review of Systems Review of Systems: All other systems are reviewed and are negative Constitutional: Reports as per HPI and Reports no additional constitutional complaints Eyes: Reports as per HPI and Reports no additional eye complaints Reports system reviewed and no additional complaints, except as documented Cardiovascular: Reports as per HPI and Reports no additional cardiovascular complaints Respiratory: Reports as per HPI and Reports no additional respiratory complaints Gastrointestinal: Reports as per HPI and Reports no additional gastrointestinal complaints Genitourinary: Reports no additional female genitourinary complaints Musculoskeletal: Reports no additional musculoskeletal complaints Skin/Breast: Reports system reviewed and no additional complaints, except as docu Psychiatric: Reports no additional psychiatric complaints Endocrine: Reports no additional endocrine complaints Hematologic/Lymphatic: Reports no additional hematologic/lymphatic complaints Allergic/Immunologic: Reports no additional allergic/immunologic complaints Reports system reviewed and no additional complaints, except as documented and Reports Abnormal speech present FOR[facility]LY [facility] Past Medical History Medical History Amputated toe IDDM (insulin dependent diabetes mellitus) Osteomyelitis of great toe of right foot Uncontrolled diabetes mellitus with hyperglycemia Osteomyelitis Asthma Cellulitis High cholesterol Kidney stones HTN (hypertension) Surgical History History of lithotripsy Social History Social History Household Members: Other Housing: House Do you presently have visiting nurse or other home services: Yes Patient Tobacco Use Status: Former Tobacco user Tobacco use type: Cigarette Substance Use Type: Crack/Cocaine and Marijuana Advance Directives: No Advance Directives Information Provided: Yes service: No Current occupational status: unemployed Physical Exam ED Vital Signs: Vital Signs - 24 hr 02/15/24 11:17 Temperature 99.6 F Pulse Rate 107 H Respiratory Rate 18 Blood Pressure 164/86 H Pulse Oximetry 94 Oxygen Delivery Method Nasal Cannula BMI result Body Mass Index 41.0 Vital signs have been reviewed and appear to be correct. Blood pressure elevated. Heart rate normal. Respiratory rate normal. Temperature normal. Oxygen saturation normal. Appearance: Alert. Oriented X3. No acute distress. Head: Normal external exam. Normocephalic. Atraumatic. No Montoya signs noted. No raccoon eyes noted Eyes: PERRLA. EOMI. Conjunctiva and sclera normal. Eyelids normal. ENT: TM's Normal. Pharynx normal. Uvula midline. Moist mucous membranes. No trismus noted. No drooling noted. No muffled voice noted. Neck: Normal inspection. Neck supple. FROM. No adenopathy. Thyroid Normal. No meningeal signs. No neck mass noted. CVS: Normal heart rate and rhythm. Heart sound normal. No murmurs noted. Pulses normal throughout. Respiratory: No respiratory distress. Painless inspiration. Breath sounds normal. No wheezes/rales/rhonchi noted. Chest nontender. No accessory muscle usage noted or decreased air movement noted. Abdomen: Soft and nontender. Bowel sounds normal in all 4 quadrants. No distention noted. No organomegaly noted. No visible injury noted. Back: No CVA tenderness. Full range of motion noted. Skin: Skin warm and dry. Normal skin color. Normal skin turgor. No rashes/lesions/lacerations noted. Extremities: Bilateral foot edema with multiple nonhealing ulcerative wound on both feet right foot is red and tender to touch with no pus discharge, patient refuse vascular exam due to being uncomfortable. Neuro: Oriented X 3. Cranial nerve exam: II-XII are grossly intact No motor deficit. No sensory deficit. Reflexes normal. Course Reevaluation(s) Reevaluation #1: 58-year-old male with bilateral foot infection and osteomyelitis patient has been treated and managed at [facility] with all his previous records, patient requested initially from EMS to be transferred to [facility] however somehow the patient ended up to come to [facility], patient was extremely unsatisfied requesting to be transferred to [facility], [facility] hotline transfer line was contacted and patient was accepted by Dr. Mendes, however patient called his sister who came and picked him up before we can arrange for transportation by ambulance, he eloped without discharge paper or signing against medical advice. Time: 14:36 Medical Decision Making Differential Diagnosis Differential Diagnoses: The differential diagnosis associated with the presentation includes ( Cellulitis, osteomyelitis, sepsis, electrolyte derangement, severe anemia.) Admission/Observation Consideration of admission/observation: Escalation of care including admission/observation considered Chronic Conditions Patient?s care impacted by: Other ( Chronic bilateral osteomyelitis to both feet) Discharge Plan Discharge Clinical Impression: Cellulitis, Osteomyelitis Patient Disposition: Elopement Prescriptions: No Action insulin glargine [Lantus Solostar U-100 Insulin] 100 unit/mL (3 mL) insulin pen 65 unit subcut BEDTIME Qty: 15 3RF metformin 1,000 mg tablet 1,000 mg PO BID Qty: 60 2RF simvastatin 40 mg tablet 1 tab PO DAILY albuterol sulfate [ProAir HFA] 90 mcg/actuation HFA aerosol inhaler 2 puff PO Q4-6H PRN (Reason: Wheezing) lisinopril-hydrochlorothiazide 20-12.5 mg Tablet 1 tab PO DAILY methadone [Methadone Intensol] 10 mg/mL Concentrate 115 mg PO DAILY Humalog U-100 Insulin 100 unit/mL Cartridge 2 - 12 unit SUBCUT TIDAC doxycycline hyclate 100 mg tablet 100 mg PO BID Qty: 60 0RF (DME) FreeStyle Oumar 2 Sensor Kit See Rx Instructions .ROUTE Q2W Qty: 1 Rx Instructions: As directed (DME) pen needle, diabetic [Easy Touch] 32 gauge x 1/4 needle See Rx Instructions .ROUTE .MEDSUPPLY Qty: 50 Rx Instructions: As directed 5 times a day (DME) lancets [TRUEplus Lancets] 33 gauge misc See Rx Instructions .ROUTE QID Qty: 100 Rx Instructions: As directed 4 times a day (DME) FreeStyle Lite Strips Strip See Rx Instructions .ROUTE QID Qty: 10 Rx Instructions: As directed 4 times a day (DME) FreeStyle Oumar 2 [place] Misc See Rx Instructions .ROUTE DAILY Qty: 1 Rx Instructions: As directed zslmxbjz-pir-iuwv fum-folic ac 7.5 mg iron-400 mcg tablet 1 tab PO QAM insulin lispro 100 unit/mL insulin pen 2 - 12 unit subcut TID vitamin A 3,000 mcg (10,000 unit) capsule 1 cap PO DAILY zinc sulfate 50 mg zinc (220 mg) capsule 50 mg PO DAILY amlodipine 5 mg tablet 5 mg PO QAM diclofenac sodium 1 % gel 2 g topical TID Print Language: Macanese
--- NOTE | 2024-02-15 14:35 | PC.NURSE ---
patient walked out with family member. patient left unit with steady gait.
[2024-02-16 07:17] VITALS: BP 164/86; PULSE 107; RESP 18; TEMP 37.6; O2SAT 94
== END 2024-02-15 14:00 | disposition left against medical advice (07) ==
PROVIDERS: Emergency Provider Emergency Medicine
DX: L03.90 Cellulitis, unspecified (principal); M86.9 Osteomyelitis, unspecified; E11.9 Type 2 diabetes mellitus without complications; I10 Essential (primary) hypertension; E78.5 Hyperlipidemia, unspecified
CPT/HCPCS: 99282

== ENCOUNTER 2024-05-19 10:13 | Outpatient (AMB) | payer MEDICAID, SELFPAY ==
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
[2024-05-19 10:17] VITALS: BP 132/72; PULSE 69
[2024-05-19 10:31] LABS: Glucose, Whole Blood 137 mg/dL (60-115)
== END 2024-05-19 11:04 | disposition home or self-care (01) ==
PROVIDERS: Visit Provider Nurse Practitioner Adult Health
DX: E11.65 Type 2 diabetes mellitus with hyperglycemia (principal)
CPT/HCPCS: 99215

== ENCOUNTER → 2024-05-19 10:13 | Outpatient (BNVA) | payer MEDICAID, SELFPAY | PROVIDERS: Visit Provider Nurse Practitioner Adult Health | DX: E11.65 Type 2 diabetes mellitus with hyperglycemia (principal); Z79.4 Long term (current) use of insulin; Z87.39 Personal history of other diseases of the musculoskeletal system and connective tissue; Z89.611 Acquired absence of right leg above knee | CPT/HCPCS: 82947; 83036; 99212 ==

== ENCOUNTER 2024-05-23 11:30 | Outpatient (REF) | payer MEDICAID, SELFPAY ==
[2024-05-23 13:34] LABS: MANUAL DIFF FLAG NO
[2024-05-23 13:45] LABS: Basophils Percent Auto 0.5 % (0-2); Eosinophils Absolute Auto 0.1 X10*3/uL (0.0-0.4); Eosinophils Percent Auto 1.2 % (0-4); Hematocrit 29.7 % (42.0-52.0); Hemoglobin 9.5 g/dl (14.0-18.0); Imm Gran Abs Auto 0.03 X10*3/uL (0.00-0.03); Imm Gran Pct Auto 0.4 % (0.0-0.4); Lymphocytes Percent Auto 12.9 % (20-40); Mean Corpuscular Hemoglobin 26.8 pg (27.0-33.0); Mean Corpuscular Volume 83.9 fL (80.0-98.0); Mean Platelet Volume 11.3 fL (9.4-12.4); Monocytes Absolute Auto 0.8 X10*3/uL (0.1-1.2); Monocytes Percent Auto 9.7 % (2-11); Neutrophils Absolute Auto 5.9 x10*3/uL (2.0-8.3); Neutrophils Percent Auto 75.3 % (45-73); Platelet Count 236 X10*3/uL (160-400); Red Blood Count 3.54 X10*6/uL (4.60-5.80); White Blood Count 7.8 X10*3/uL (4.8-10.8)
[2024-05-23 14:08] LABS: Anion Gap 13 (12-20); Blood Urea Nitrogen 26 mg/dL (9-16); Calcium 9.8 mg/dL (8.4-10.2); Carbon Dioxide 26 mmol/L (22-29); Chloride 103 mmol/L (96-108); Estimated Glomerular Filt Rate > 60; Glucose Random 136 mg/dL (60-115); Potassium 5.3 mmol/L (3.3-5.1); Sodium 137 mmol/L (135-145)
== END 2024-05-23 11:31 | disposition home or self-care (01) ==
LOC: HO.HHCL 11:30
PROVIDERS: Internal Medicine; Visit Provider Internal Medicine
DX: E11.9 Type 2 diabetes mellitus without complications (principal); I10 Essential (primary) hypertension; Z79.4 Long term (current) use of insulin
CPT/HCPCS: 36415; 80048; 83735; 85025

== ENCOUNTER 2024-06-02 11:40 | Outpatient (REF) | payer MEDICAID, SELFPAY ==
[2024-06-02 12:01] LABS: MANUAL DIFF FLAG NO
[2024-06-02 13:14] LABS: Basophils Absolute Auto 0.1 X10*3/uL (0.0-0.2); Basophils Percent Auto 0.7 % (0-2); Eosinophils Absolute Auto 0.2 X10*3/uL (0.0-0.4); Eosinophils Percent Auto 2.8 % (0-4); Hematocrit 29.3 % (42.0-52.0); Hemoglobin 9.6 g/dl (14.0-18.0); Imm Gran Abs Auto 0.02 X10*3/uL (0.00-0.03); Imm Gran Pct Auto 0.3 % (0.0-0.4); Lymphocytes Absolute Auto 1.3 X10*3/uL (1.2-4.9); Lymphocytes Percent Auto 17.4 % (20-40); Mean Corpuscular HGB Conc 32.8 g/dl (31.0-36.0); Mean Corpuscular Hemoglobin 26.7 pg (27.0-33.0); Mean Corpuscular Volume 81.6 fL (80.0-98.0); Mean Platelet Volume 11.2 fL (9.4-12.4); Monocytes Absolute Auto 0.7 X10*3/uL (0.1-1.2); Monocytes Percent Auto 9.4 % (2-11); Neutrophils Percent Auto 69.4 % (45-73); Platelet Count 221 X10*3/uL (160-400); Red Blood Count 3.59 X10*6/uL (4.60-5.80); Red Cell Distribution Width 14.3 % (11.0-16.0); White Blood Count 7.2 X10*3/uL (4.8-10.8)
[2024-06-02 14:04] LABS: Potassium 5.1 mmol/L (3.3-5.1)
[2024-06-02 14:05] LABS: Anion Gap 9 (12-20); Blood Urea Nitrogen 23 mg/dL (9-16); Carbon Dioxide 30 mmol/L (22-29); Chloride 102 mmol/L (96-108); Cholesterol 85 mg/dL (<200); Estimated Glomerular Filt Rate > 60; Glucose Fasting 161 mg/dL (60-99); HDL Cholesterol 30 mg/dL (>40); LDL Cholesterol Calculated 43 mg/dL (<100); Potassium 4.9 mmol/L (3.3-5.1); Sodium 136 mmol/L (135-145); Triglycerides 61 mg/dL (<150)
[2024-06-02 14:07] LABS: Creatinine Urine 75.26 mg/dL; Microalbum/Creatinine Ratio Ur 13.2 ug/mg cr (<30)
[2024-06-02 14:36] LABS: Ferritin 41 ng/mL (20-250)
[2024-06-07 15:53] LABS: Glutamic acid decarboxylase Ab <5 IU/mL (<5)
[2024-06-08 02:24] LABS: C Peptide 2.19 ng/mL (0.80-3.85)
[2024-06-16 02:04] LABS: Islet Cell Antibody Screen NEGATIVE (NEGATIVE)
== END 2024-06-02 11:41 | disposition home or self-care (01) ==
LOC: HO.LAB 11:40
PROVIDERS: Absent Provider Nurse Practitioner Adult Health; Visit Provider Internal Medicine
DX: E11.9 Type 2 diabetes mellitus without complications (principal); D63.8 Anemia in other chronic diseases classified elsewhere; E87.5 Hyperkalemia
CPT/HCPCS: 36415; 80048; 80061; 82043; 82570; 82728; 84132; 84681; 85025; 86341

== ENCOUNTER 2024-07-11 12:16 | Inpatient (IN) | payer MEDICAID, SELFPAY ==
[2024-07-11] VITALS (9 sets, daily range): BP systolic 99–182; BP diastolic 44–88; PULSE 76–103; RESP 12–20; TEMP 37.6–39.6; O2SAT 91–95; BMI 37.5
--- NOTE | ~2024-07-11 | XR_ITS ---
EXAMINATION: XR FOOT, LEFT CLINICAL INFORMATION: Great toe infection. COMPARISON: No similar priors. TECHNIQUE: AP, lateral, and oblique views of the left foot. FINDINGS: Extensive diffuse soft tissue swelling. No unexpected radiopaque foreign bodies. Chronic appearing deformity with partial amputation of the fifth metatarsal. At the base of the fifth metatarsal there is a subtle focal area of increased cortical lucency of indeterminate etiology. Along the lateral base of the proximal phalanx of the first toe, there is a small marginal erosion. No fractures or dislocation. XR/XR foot LT min 3V IMPRESSION: 1. Subtle focal area of increased cortical lucency at the base of the fifth metatarsal and subtle marginal erosion at the base of the proximal phalanx of the first toe of indeterminate etiology. This could be related with osteomyelitis. If indicated, consider further evaluation with an MR of the left foot. 2. Chronic appearing deformity of the fifth metatarsal. 3. Significant diffuse soft tissue swelling. Electronically signed by: Marisol Spears MD 07/11/2024 05:14 PM EDT
--- NOTE | ~2024-07-11 | XR_ITS ---
EXAMINATION: XR CHEST CLINICAL INFORMATION: Fever COMPARISON: 01/05/2024 TECHNIQUE: Frontal view of the chest was obtained. FINDINGS: Heart size normal with normal caliber pulmonary vessels. Suboptimal inspiratory effort. There are however very minor linear opacities at the lung bases. This appears chronic and unchanged from 01/05/2024. No pleural effusions XR/XR chest 1V IMPRESSION: Limited study with no active disease. Electronically signed by: Osvaldo Sarmiento MD 07/11/2024 02:30 PM EDT
--- NOTE | ~2024-07-11 | IR_ITS ---
CLINICAL HISTORY: IV antibiotics PROCEDURES: 1. Real-time ultrasound-guided access into the right basilic vein after documentation of selected vessel patency, and permanent imaging storing in the patient record. 2. Placement of a 5 fr 41 cm, dual lumen power PICC CLINICIANS: Joss Elder PA-C MEDICATIONS: -Lidocaine 1% 10 mL SQ. -Antibiotics: None. Complications: None. Estimated blood loss: <5 ml Specimens: None. Contrast: None. Fluoroscopy time: 0.4 min Procedure note: The procedure, risks, benefits, and alternatives were carefully explained to the patient and written informed consent was obtained. The patient was placed supine on the fluoroscopy table. A timeout was performed. The right arm was prepped and draped in usual sterile fashion. Using ultrasound and fluoroscopic guidance, venous access was achieved into the basilic vein with a micropuncture set. A peel-away sheath was advanced over the wire. The 0.018 inch wire was advanced into the right atrium. A 5 fr, 41 cm, dual lumen power PICC was advanced over the wire, with its tip in the the caval atrial junction. The wire was removed. The catheter was tested and secured with a StatLock dressing. A permanent ultrasound image and chest fluoroscopic image was saved to PACS. The patient was stable after the procedure and was transferred to the floor. FINDINGS: 1. Patent right basilic vein 2. Placement of a 5 fr 41 cm, dual lumen power PICC IR/IR cvc insert peripheral IMPRESSION: Placement of a 5 fr 41 cm, dual lumen PASV power PICC PLAN: -The catheter may be used immediately. This procedure was performed by Joss Elder PA-C, and directly supervised by Dr. Moody Electronically signed by: Tico Moody MD 07/27/2024 02:10 PM EDT
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
--- NOTE | 2024-07-11 12:38 | ECG_ITS ---
Test Reason : SEPSIS PROTOCOL Blood Pressure : / mmHG Vent. Rate : 085 BPM Atrial Rate : 085 BPM P-R Int : 168 ms QRS Dur : 086 ms QT Int : 370 ms P-R-T Axes : 076 050 073 degrees QTc Int : 440 ms Normal sinus rhythm Normal ECG No previous ECGs available Referred By: Santo Goddard Electronically Signed By:JONES PARKER MD
[2024-07-11 12:54] LABS: MANUAL DIFF FLAG NO
[2024-07-11 12:55] LABS: Basophils Percent Auto 0.3 % (0-2); Hematocrit 32.6 % (42.0-52.0); Hemoglobin 10.7 g/dl (14.0-18.0); Imm Gran Abs Auto 0.07 X10*3/uL (0.00-0.03); Imm Gran Pct Auto 0.6 % (0.0-0.4); Lymphocytes Absolute Auto 0.3 X10*3/uL (1.2-4.9); Lymphocytes Percent Auto 2.5 % (20-40); Mean Corpuscular HGB Conc 32.8 g/dl (31.0-36.0); Mean Corpuscular Hemoglobin 26.6 pg (27.0-33.0); Mean Corpuscular Volume 80.9 fL (80.0-98.0); Mean Platelet Volume 10.9 fL (9.4-12.4); Monocytes Absolute Auto 0.8 X10*3/uL (0.1-1.2); Monocytes Percent Auto 6.9 % (2-11); Neutrophils Absolute Auto 10.7 x10*3/uL (2.0-8.3); Neutrophils Percent Auto 89.7 % (45-73); Platelet Count 187 X10*3/uL (160-400); Red Blood Count 4.03 X10*6/uL (4.60-5.80); Red Cell Distribution Width 14.7 % (11.0-16.0); White Blood Count 11.9 X10*3/uL (4.8-10.8)
[2024-07-11 13:06] LABS: Lactic Acid 1.6 mmol/L (0.5-2.0)
[2024-07-11 13:11] LABS: Alanine Aminotransferase 16 U/L (0-40); Albumin Level 4.3 g/dL (3.5-5.0); Alkaline Phosphatase 76 U/L (39-117); Anion Gap 13 (12-20); Aspartate Amino Transferase 16 U/L (5-37); Bilirubin Direct 0.2 mg/dL (0.0-0.5); Bilirubin Total 0.4 mg/dL (0.0-1.0); Blood Urea Nitrogen 23 mg/dL (9-16); C Reactive Protein 2.16 mg/dL (< or = 0.50); Calcium 9.8 mg/dL (8.4-10.2); Carbon Dioxide 25 mmol/L (22-29); Chloride 102 mmol/L (96-108); Creatinine Clr Calc Pharmacy 94.8; Estimated Glomerular Filt Rate > 60; Glucose Random 168 mg/dL (60-115); Magnesium 1.8 mg/dL (1.6-2.6); Potassium 5.1 mmol/L (3.3-5.1); Sodium 135 mmol/L (135-145)
[2024-07-11 13:21] LABS: INTERNATIONAL NORM RATIO 1.1 (0.9-1.1); Prothrombin Time 12.9 SEC (10.9-12.4)
[2024-07-11] MEDS: Bacitracin Oint 0.9 GM PACKET 2 APPL TOPICAL (13:27)
[2024-07-11] MEDS: Piperacillin Sodium/Tazobactam 4.5 GM in 0.9 % Sodium Chloride 100 ML IV (13:27)
[2024-07-11 13:34] LABS: Influenza A PCR NEGATIVE (Negative); Influenza B PCR NEGATIVE (Negative); Resp Syncy Virus RNA Qual PCR NEGATIVE (Negative); SARS COV2 PCR INHOUSE NEGATIVE (Negative)
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
[2024-07-11] MEDS: vancomycin/NS 2,000 MG/500 ML PLAST..BAG 250 MG IV (14:19)
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
[2024-07-11 15:43] LABS: Appearance Urine Clear; Color Urine Yellow; Glucose Urine UA Negative (Negative); Leukocyte Esterase Urine Negative (Negative); Nitrite Urine Negative (Negative); Specific Gravity - Urine 1.015 (1.005-1.025); Urine Blood Negative (Negative); Urine Ketones Negative (Negative); Urine Protein Negative (Neg-Trace)
[2024-07-11 15:52] LABS: Lactic Acid 1.5 mmol/L (0.5-2.0)
--- NOTE | 2024-07-11 15:55 | PHA.PROG ---
Admission Date/Time: July 11, 2024 15:42 Indication: BONE AND JOINT Weight in k.2 kg Adjusted body weight in K.5 Serum Creatinine - Last 168 Hours 07/11/24 12:47 Creatinine 1.05 Estimated CrCl and GFR - Last 168 Hours 07/11/24 12:47 Estim Creat Clear Calc 94.8 Estimated GFR > 60 Vancomycin Loading Dose:2000 Current Vancomycin Dosing Regimen: 1250 MG Q12H Vancomycin Monitoring using AUC goal of 400 - 600 range with trough as surrogate marker: 532 Date and Time for next Vancomycin Level to be drawn: 07/12 @1200, DUE TO TIMING Pharmacist Comments on Vancomycin Plan: Vancomycin dosing will take advantage of [employer] as a clinical decision support tool that uses Bayesian modeling to calculate individual patient's pharmacokinetic parameters and forecast the patient's drug concentration time course with the target goal AUC 24 range of 400 - 600 mg/L/hr.
[2024-07-11 15:58] LABS: Estimated Average Glucose 134 mg/dL; Hemoglobin A1C 124.5595 umol/L; Hemoglobin A1c % 6.3 % (<6.0); Total Hemoglobin (HGBA1C) 2735.0213 umol/L
[2024-07-11 16:00] LABS: Amphetamine Screen Urine Not Detected (Not Detect); Barbiturates, Urine Not Detected (Not Detect); Benzodiazepines Screen Urine Not Detected (Not Detect); Buprenorphine Scr Not Detected (Not Detect); Cannabinoid Screen Urine Not Detected (Not Detect); Cocaine Screen Urine Not Detected (Not Detect); Fentanyl, urine Not Detected (Not Detect); Methadone Screen, Urine Positive (Not Detect); Opiate Screen Urine Not Detected (Not Detect); Oxycodone Screen Urine Not Detected (Not Detect); Phencyclidine Screen Urine Not Detected (Not Detect)
--- NOTE | 2024-07-11 16:08 | PHA.MEDREC ---
Addendum entered by Tico Orozco RPh 07/11/24 16:15: med rec reviewed Original Note: Pharmacy Consult ? Medication Reconciliation Pharmacy has completed the medication reconciliation. Spoke to patient's sister over the phone to confirm med list. Sister states patient no longer takes Proair HFA inhaler, Amlodipine 5 mg , Metformin 1,000 mg, Simvastatin , and Vitamin A. Sister says patient is on Methadone 98 mg daily from [facility] in [place] [phone], last last taken today 07/11/24
[2024-07-11] MEDS: 0.9 % Sodium Chloride Flush 3 ML SYRINGE IVFLUSH (18:41)
[2024-07-11] MEDS: Enoxaparin Sodium 40 MG/0.4 ML SYRINGE SUBCUT (18:42)
[2024-07-11] MEDS: cefTRIAXone sodium 1 GM in 0.9 % Sodium Chloride 50 ML IV (18:42)
[2024-07-11 20:05] LABS: Glucose, Whole Blood 116 mg/dL (60-115)
--- NOTE | 2024-07-11 20:06 | PC.NURSE ---
assumed care of pt at 1900, notified by tech at 1999 that pt was febrile, tylenol given by charge master coordinator, provider notified.
[2024-07-11] MEDS: Acetaminophen 325 MG TABLET 650 MG PO (20:08)
--- NOTE | 2024-07-11 20:09 | PC.NURSE ---
pt medicated for fever 103.2 with tylenol po. pt sat 92 % on room air
[2024-07-11] MEDS: 0.9 % Sodium Chloride 500 ML IV (20:41)
[2024-07-11 21:12] LABS: Glucose, Whole Blood 117 mg/dL (60-115)
[2024-07-12] MEDS: 0.9 % Sodium Chloride Flush 3 ML SYRINGE IVFLUSH ×4 (00:15→21:31)
[2024-07-12 02:15] VITALS: BP 143/75; PULSE 102; RESP 18; TEMP 37.2; O2SAT 93
[2024-07-12] MEDS: vancomycin HCL 1,250 MG in 0.9 % Sodium Chloride 250 ML 166.67 MG IV (03:08)
[2024-07-12 06:12] LABS: MANUAL DIFF FLAG NO
[2024-07-12 06:32] LABS: Basophils Percent Auto 0.4 % (0-2); Hematocrit 29.4 % (42.0-52.0); Hemoglobin 9.7 g/dl (14.0-18.0); Imm Gran Abs Auto 0.04 X10*3/uL (0.00-0.03); Imm Gran Pct Auto 0.5 % (0.0-0.4); Lymphocytes Absolute Auto 0.5 X10*3/uL (1.2-4.9); Lymphocytes Percent Auto 6.5 % (20-40); Mean Corpuscular Hemoglobin 26.8 pg (27.0-33.0); Mean Corpuscular Volume 81.2 fL (80.0-98.0); Monocytes Absolute Auto 0.6 X10*3/uL (0.1-1.2); Monocytes Percent Auto 8.2 % (2-11); Neutrophils Absolute Auto 6.2 x10*3/uL (2.0-8.3); Neutrophils Percent Auto 84.4 % (45-73); Red Blood Count 3.62 X10*6/uL (4.60-5.80); Red Cell Distribution Width 15.2 % (11.0-16.0); White Blood Count 7.3 X10*3/uL (4.8-10.8)
[2024-07-12 06:34] LABS: Anion Gap 10 (12-20); Blood Urea Nitrogen 17 mg/dL (9-16); Calcium 9.4 mg/dL (8.4-10.2); Carbon Dioxide 26 mmol/L (22-29); Chloride 103 mmol/L (96-108); Creatinine Clr Calc Pharmacy 113.1; Estimated Glomerular Filt Rate > 60; Glucose Random 129 mg/dL (60-115); Potassium 4.2 mmol/L (3.3-5.1); Sodium 135 mmol/L (135-145)
[2024-07-12 07:38] LABS: Glucose, Whole Blood 131 mg/dL (60-115)
[2024-07-12 07:42] VITALS: BP 118/64; PULSE 82; RESP 12; TEMP 37.1; O2SAT 93
[2024-07-12 08:04] LABS: Mean Platelet Volume 11.4 fL (9.4-12.4); Platelet Count 137 X10*3/uL (160-400)
--- NOTE | 2024-07-12 09:53 | MHC.CM.PN ---
CM MET WITH PT AT BEDSIDE. PT LIVES WITH SISTER AND USES W/C FOR MAJOR MOBILITY. PT IS ABLE TO TRANSFER SELF WITHOUT DIFFICULTY. PT IS ACTIVE WITH [facility] FOR USP VISITS. PT USES [facility] ([facility]). +HCP PCP WILLIAM RAMIREZ NP DP: HOME WITH RESUMPTION OF SERVICES FROM [facility] IS THE GOAL. PT WILL NEED S TRANSPORT. CM WILL CONTINUE TO FOLLOW FOR ANY CHANGE TO DC PLAN/NEEDS.
--- NOTE | 2024-07-12 10:15 | HO.PM.IMPN ---
Subjective Subjective Date of Service: 07/12/24 Interval History: f/u on left lower extremity cellulitis and possible OM left 5th toe Physical Exam Vital Signs: Vital Signs: Last Vital Signs Temp 98.8 F 07/12/24 07:42 Pulse 82 07/12/24 07:42 Resp 12 07/12/24 07:42 BP 118/64 07/12/24 07:42 Pulse Ox 93 07/12/24 07:42 O2 Del Method Room Air 07/12/24 07:42 Oxygen Flow Rate 2 07/11/24 12:27 BMI result Body Mass Index 37.5 Skin: Other: General: AO X 3, no acute distress Resp: CTA bilateral CVS: S1,S2,RRR GI: +BS, NT, no distention Skin: see pic ext: right bka, dressing in place Neuro: motor grossly intact Psych: appropriate affect Objective Data Active Medications Acetaminophen (Acetaminophen 325 Mg Tablet) 650 mg PO Q6H PRN PRN Reason: Pain, Mild (Pain Scale 1-3), fever or headache Last Admin: 07/11/24 20:08 Dose: 650 mg Documented By: CELESTINE Calcium Carbonate (Calcium Carbonate 750 Mg Tab.Chew) 750 mg PO Q4H PRN PRN Reason: Heartburn Enoxaparin Sodium (Enoxaparin Sodium 40 Mg/0.4 Ml Syringe) 40 mg SUBCUT Q24H [facility] Last Admin: 07/11/24 18:42 Dose: 40 mg Documented By: DENISSE Glucose (Glucose Gel 15 Gm Gel..Gram.) 15 gm PO Q15M PRN; Protocol PRN Reason: per Hypoglycemia Standing Ord. Dextrose (D10) 250 mls @ 750 mls/hr IV Q15M PRN; Protocol PRN Reason: per Hypoglycemia Standing Ord. Ceftriaxone Sodium 1 gm/ (Sodium Chloride) 50 mls @ 100 mls/hr IV Q24H [facility] Last Infusion: 07/11/24 20:27 Dose: Infused Documented By: SANDYL Vancomycin HCl 1,250 mg/ (Sodium Chloride) 250 mls @ 166.667 mls/hr IV Q12H [facility] Last Infusion: 07/12/24 05:00 Dose: Infused Documented By: SUZANNE Insulin Glargine (Insulin Glargine,Hum.Rec.Anlog 100 Unit/Ml 10 Ml Vial) 20 unit SUBCUT BEDTIME [facility] Last Admin: 07/11/24 22:10 Dose: Not Given Documented By: SHANON Non-Admin Reason: Physician Held Med Insulin Human Lispro (Insulin Lispro 100 Unit/Ml 3 Ml Vial) 0 unit SUBCUT QIDACHS [facility]; Protocol Last Admin: 07/12/24 07:47 Dose: Not Given Documented By: JOSE R Non-Admin Reason: No Insulin Coverage Magnesium Hydroxide (Milk Of Magnesia 30 Ml Oral.Susp) 30 ml PO DAILY PRN PRN Reason: Constipation Melatonin (Melatonin 3 Mg Tablet) 6 mg PO BEDTIME PRN PRN Reason: Insomnia Pharmacy Consult (Consult Rx Vancomycin Dosing) 1 each MISCELLANE DAILY PRN PRN Reason: Consult order Sodium Chloride (0.9 % Sodium Chloride Flush 3 Ml Syringe) 3 ml IVFLUSH QSHIFT [facility] Last Admin: 07/12/24 08:46 Dose: 3 ml Documented By: JOSE R Labs 07/12/24 06:06 07/12/24 06:06 Labs: Laboratory Results - last 24 hr 07/11/24 07/11/24 07/11/24 12:47 13:06 15:24 MCV 80.9 MCH 26.6 L MCHC 32.8 RDW 14.7 Plt Count 187 MPV 10.9 Immature Gran % (Auto) 0.6 H Neut % (Auto) 89.7 H Lymph % (Auto) 2.5 L [place] % (Auto) 6.9 Eos % (Auto) 0.0 Baso % (Auto) 0.3 Lymph # (Auto) 0.3 L [place] # (Auto) 0.8 Eos # (Auto) 0.0 Baso # (Auto) 0.0 Abs Immat Gran (auto) 0.07 H Absolute Neuts (auto) 10.7 H Absolute Nucleated RBC 0.000 Nucleated RBC % (auto) 0.0 PT 12.9 H INR 1.1 Anion Gap 13 Estim Creat Clear Calc 94.8 Estimated GFR > 60 POC Glucose Random Glucose 168 H Estimat Average Glucose 134 Hemoglobin A1c % 6.3 H Lactic Acid 1.6 1.5 Calcium 9.8 Magnesium 1.8 Total Bilirubin 0.4 Direct Bilirubin 0.2 AST 16 ALT 16 Alkaline Phosphatase 76 Total Creatine Kinase 56 C-Reactive Protein 2.16 H Total Protein 8.0 Albumin 4.3 Urine Color Urine Appearance Urine pH Ur Specific [place] Urine Protein Urine Glucose (UA) Urine Ketones Urine Blood Urine Nitrite Ur Leukocyte Esterase Urine Opiates Screen Ur Buprenorphine Scrn Ur Oxycodone Screen Urine Methadone Screen Urine Fentanyl Screen Ur Barbiturates Screen Ur Phencyclidine Scrn Ur Amphetamines Screen U Benzodiazepines Scrn Urine Cocaine Screen U Marijuana (THC) Screen Influenza Type A (PCR) NEGATIVE Influenza Type B (PCR) NEGATIVE RSV RNA Qual (PCR) NEGATIVE SARS-CoV-2 RNA (RT-PCR) NEGATIVE 07/11/24 07/11/24 07/11/24 15:32 19:57 20:38 MCV MCH MCHC RDW Plt Count MPV Immature Gran % (Auto) Neut % (Auto) Lymph % (Auto) [place] % (Auto) Eos % (Auto) Baso % (Auto) Lymph # (Auto) [place] # (Auto) Eos # (Auto) Baso # (Auto) Abs Immat Gran (auto) Absolute Neuts (auto) Absolute Nucleated RBC Nucleated RBC % (auto) PT INR Anion Gap Estim Creat Clear Calc Estimated GFR POC Glucose 116 H Random Glucose Estimat Average Glucose Hemoglobin A1c % Lactic Acid 1.0 Calcium Magnesium Total Bilirubin Direct Bilirubin AST ALT Alkaline Phosphatase Total Creatine Kinase C-Reactive Protein Total Protein Albumin Urine Color Yellow Urine Appearance Clear Urine pH 7.0 Ur Specific [place] 1.015 Urine Protein Negative Urine Glucose (UA) Negative Urine Ketones Negative Urine Blood Negative Urine Nitrite Negative Ur Leukocyte Esterase Negative Urine Opiates Screen Not Detected Ur Buprenorphine Scrn Not Detected Ur Oxycodone Screen Not Detected Urine Methadone Screen Positive H Urine Fentanyl Screen Not Detected Ur Barbiturates Screen Not Detected Ur Phencyclidine Scrn Not Detected Ur Amphetamines Screen Not Detected U Benzodiazepines Scrn Not Detected Urine Cocaine Screen Not Detected U Marijuana (THC) Screen Not Detected Influenza Type A (PCR) Influenza Type B (PCR) RSV RNA Qual (PCR) SARS-CoV-2 RNA (RT-PCR) 07/11/24 07/12/24 07/12/24 21:06 06:06 07:21 MCV 81.2 MCH 26.8 L MCHC 33.0 RDW 15.2 Plt Count 137 L D MPV 11.4 Immature Gran % (Auto) 0.5 H Neut % (Auto) 84.4 H Lymph % (Auto) 6.5 L [place] % (Auto) 8.2 Eos % (Auto) 0.0 Baso % (Auto) 0.4 Lymph # (Auto) 0.5 L [place] # (Auto) 0.6 Eos # (Auto) 0.0 Baso # (Auto) 0.0 Abs Immat Gran (auto) 0.04 H Absolute Neuts (auto) 6.2 Absolute Nucleated RBC 0.000 Nucleated RBC % (auto) 0.0 PT INR Anion Gap 10 L Estim Creat Clear Calc 113.1 Estimated GFR > 60 POC Glucose 117 H 131 H Random Glucose 129 H Estimat Average Glucose Hemoglobin A1c % Lactic Acid Calcium 9.4 Magnesium Total Bilirubin Direct Bilirubin AST ALT Alkaline Phosphatase Total Creatine Kinase C-Reactive Protein Total Protein Albumin Urine Color Urine Appearance Urine pH Ur Specific [place] Urine Protein Urine Glucose (UA) Urine Ketones Urine Blood Urine Nitrite Ur Leukocyte Esterase Urine Opiates Screen Ur Buprenorphine Scrn Ur Oxycodone Screen Urine Methadone Screen Urine Fentanyl Screen Ur Barbiturates Screen Ur Phencyclidine Scrn Ur Amphetamines Screen U Benzodiazepines Scrn Urine Cocaine Screen U Marijuana (THC) Screen Influenza Type A (PCR) Influenza Type B (PCR) RSV RNA Qual (PCR) SARS-CoV-2 RNA (RT-PCR) Assessment and Plan (1) Left leg cellulitis: Status: Acute (2) Diabetes: Status: Acute Plan 59 yo male with past medical history of IDDM (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 LLE cellulitis and bony erosion of 5th metatarsal, WBC down, less erythema -received 1 dose in ED -continue Vanco and Ceftriaxone -ID consult -May need jail Abx Left stump wound--dressing changes q3 days -wound consult IDDM - Acceptable control, A1C 6.3 - glargine 20U QHS (30 at home) - diabetic diet HTN - BP on lower side - hold BP meds (lisinopril and procardia) HLD - continue simvastatin Opioid dependence - continue methadone -addiction med consult full code VTE prophy: lovenox Pt with LLE cellulitis with risk factors for progression including poorly controlled DM, chronic venous statis, and hx osteomyelitis requiring IV abx therefore will be admitted for at least 2 midnights stay. Quality Stroke Does the patient have a stroke diagnosis?: No VTE Prior VTE?: No VTE Risk Level:: Medical - moderate - high VTE Device Contraindication: Treatment Not Tolerated VTE Drug Contraindication: N/A - Med Ordered
[2024-07-12 10:50] LABS: C Reactive Protein 15.48 mg/dL (< or = 0.50)
[2024-07-12 11:38] LABS: Erythrocyte Sedimentation Rate 33 MM/HR (0-15)
[2024-07-12 12:00] LABS: Glucose, Whole Blood 195 mg/dL (60-115)
[2024-07-12] MEDS: Insulin Lispro 100 UNIT/ML 3 ML VIAL SUBCUT ×3 (12:32→21:30)
[2024-07-12 13:09] LABS: Vancomycin Random 13.9 mcg/mL (15-20)
--- NOTE | 2024-07-12 13:31 | HE.PHANOTE ---
METHADONE Dose: 97mg, last dosed 07/11/2024 per Bindu LOPEZ at [facility] . Took 97mg in person on 07/11/24 and recieved 27 doses of 97mg take home bottles.
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
[2024-07-12 15:09] VITALS: BP 120/60; PULSE 69; RESP 16; TEMP 36.6; O2SAT 94
[2024-07-12] MEDS: cefTRIAXone sodium 1 GM in 0.9 % Sodium Chloride 50 ML IV (15:30)
[2024-07-12] MEDS: Enoxaparin Sodium 40 MG/0.4 ML SYRINGE SUBCUT (15:33)
[2024-07-12 16:12] LABS: Glucose, Whole Blood 206 mg/dL (60-115)
[2024-07-12] MEDS: DAPTOmycin 500 MG in 0.9 % Sodium Chloride 50 ML 100 MG IV (16:59)
--- NOTE | 2024-07-12 17:14 | PM.EVENT ---
Event Note Date of Service: 07/12/24 Event Note: Addiction consult placed Chart reviewed patient with history of OUD currently prescribed methadone 97mg daily via OTP with monthly take home bottles UDS negative for illicit substances methadone verified and restarted -discussed with attending at this time no intervention warranted from addiction medicine please reconsult if necessary Time Spent With Patient Time: Total time managing care of this patient today ____ minutes.
[2024-07-12] MEDS: methADONE HCl 20 MG/2 ML ORAL.CONC 90 MG PO (17:18)
[2024-07-12 19:44] LABS: Glucose, Whole Blood 203 mg/dL (60-115)
[2024-07-12] MEDS: Atorvastatin Calcium 20 MG TABLET PO (21:30)
[2024-07-12] MEDS: Insulin Glargine,Hum.rec.anlog 100 UNIT/ML 10 ML VIAL 20 UNIT SUBCUT (21:30)
[2024-07-12] MEDS: Sennosides 8.6 MG TABLET 17.2 MG PO (21:31)
[2024-07-13] VITALS: BP 138/71; PULSE 74; RESP 16; TEMP 36.3; O2SAT 96
[2024-07-13 07:28] VITALS: BP 115/56; PULSE 63; RESP 18; TEMP 36.7; O2SAT 94
[2024-07-13 07:49] LABS: Glucose, Whole Blood 269 mg/dL (60-115)
[2024-07-13] MEDS: Insulin Lispro 100 UNIT/ML 3 ML VIAL SUBCUT ×5 (07:57→20:38)
[2024-07-13] MEDS: Insulin Glargine,Hum.rec.anlog 100 UNIT/ML 10 ML VIAL 10 UNIT SUBCUT (07:58)
[2024-07-13] MEDS: 0.9 % Sodium Chloride Flush 3 ML SYRINGE IVFLUSH ×3 (08:00→23:53)
[2024-07-13] MEDS: Silver Sulfadiazine 1 % Cream 20 GM TUBE 1 APPL TOPICAL (08:08)
[2024-07-13] MEDS: polyethylene glycoL 3350 17 GM POWD.PACK PO (08:08)
[2024-07-13] MEDS: methADONE HCl 20 MG/2 ML ORAL.CONC 90 MG PO (08:08)
--- NOTE | 2024-07-13 11:04 | P.PNIM_ITS ---
Subjective Subjective Date of Service: 07/14/24 Interval History: f/u on left lower extremity cellulitis and OM left 5th toe persitent redness of left leg but better Physical Exam 2 Vital Signs: Vital Signs: Last Vital Signs Temp 98.1 F 07/13/24 07:28 Pulse 63 07/13/24 07:28 Resp 18 07/13/24 07:28 BP 115/56 L 07/13/24 07:28 Pulse Ox 94 07/13/24 07:28 O2 Del Method Room Air 07/13/24 07:28 Oxygen Flow Rate 2 07/11/24 12:27 BMI result Body Mass Index 37.5 General: AO X 3, no acute distress Resp: CTA bilateral CVS: S1,S2,RRR GI: +BS, NT, no distention Skin: No rash redness of left lower extremity up to tigh, less prominent Neuro: motor grossly intact Psych: appropriate affect Objective Data Active Medications Acetaminophen (Acetaminophen 325 Mg Tablet) 650 mg PO Q6H PRN PRN Reason: Pain, Mild (Pain Scale 1-3), fever or headache Last Admin: 07/11/24 20:08 Dose: 650 mg Documented By: CELESTINE Atorvastatin Calcium (Atorvastatin Calcium 20 Mg Tablet) 20 mg PO BEDTIME MT Last Admin: 07/12/24 21:30 Dose: 20 mg Documented By: CATIE Calcium Carbonate (Calcium Carbonate 750 Mg Tab.Chew) 750 mg PO Q4H PRN PRN Reason: Heartburn Enoxaparin Sodium (Enoxaparin Sodium 40 Mg/0.4 Ml Syringe) 40 mg SUBCUT Q24H [facility] Last Admin: 07/12/24 15:33 Dose: 40 mg Documented By: JOSE R Glucose (Glucose Gel 15 Gm Gel..Gram.) 15 gm PO Q15M PRN; Protocol PRN Reason: per Hypoglycemia Standing Ord. Dextrose (D10) 250 mls @ 750 mls/hr IV Q15M PRN; Protocol PRN Reason: per Hypoglycemia Standing Ord. Ceftriaxone Sodium 1 gm/ (Sodium Chloride) 50 mls @ 100 mls/hr IV Q24H [facility] Last Infusion: 07/12/24 16:35 Dose: Infused Documented By: JOSE R Daptomycin 500 mg/ Sodium (Chloride) 60 mls @ 100 mls/hr IV Q24H [facility] Last Infusion: 07/12/24 17:45 Dose: Infused Documented By: JOSE R Insulin Glargine (Insulin Glargine,Hum.Rec.Anlog 100 Unit/Ml 10 Ml Vial) 20 unit SUBCUT BEDTIME [facility] Last Admin: 07/12/24 21:30 Dose: 20 unit Documented By: CATIE Insulin Glargine (Insulin Glargine,Hum.Rec.Anlog 100 Unit/Ml 10 Ml Vial) 10 unit SUBCUT DAILY [facility] Last Admin: 07/13/24 07:58 Dose: 10 unit Documented By: MAITE Insulin Human Lispro (Insulin Lispro 100 Unit/Ml 3 Ml Vial) 0 unit SUBCUT QIDACHS [facility]; Protocol Last Admin: 07/13/24 07:58 Dose: 6 unit Documented By: MAITE Magnesium Hydroxide (Milk Of Magnesia 30 Ml Oral.Susp) 30 ml PO DAILY PRN PRN Reason: Constipation Melatonin (Melatonin 3 Mg Tablet) 6 mg PO BEDTIME PRN PRN Reason: Insomnia Methadone HCl (Methadone Hcl 20 Mg/2 Ml Oral.Conc) 90 mg PO DAILY [facility] Last Admin: 07/13/24 08:08 Dose: 90 mg Documented By: MAITE Co-signed By: GATO Polyethylene Glycol (Polyethylene Glycol 3350 17 Gm Powd.Pack) 17 gm PO DAILY [facility] Last Admin: 07/13/24 08:08 Dose: 17 gm Documented By: MAITE Senna (Sennosides 8.6 Mg Tablet) 17.2 mg PO BEDTIME PRN PRN Reason: Constipation Last Admin: 07/12/24 21:31 Dose: 17.2 mg Documented By: CATIE Silver Sulfadiazine (Silver Sulfadiazine 1 % Cream 20 Gm Tube) 1 appl TOPICAL DAILY [facility] Last Admin: 07/13/24 08:08 Dose: 1 appl Documented By: MAITE Sodium Chloride (0.9 % Sodium Chloride Flush 3 Ml Syringe) 3 ml IVFLUSH QSHIFT [facility] Last Admin: 07/13/24 08:00 Dose: 3 ml Documented By: MAITE Labs 07/12/24 06:06 07/12/24 06:06 Labs: Laboratory Results - last 24 hr 07/12/24 07/12/24 07/12/24 06:06 11:56 12:28 ESR 33 H POC Glucose 195 H Random Vancomycin 13.9 L 07/12/24 07/12/24 07/13/24 16:07 19:37 07:45 ESR POC Glucose 206 H 203 H 269 H Random Vancomycin Microbiology Microbiology Results: Microbiology 07/11/24 13:06 Blood Culture - Preliminary Blood - Venous No growth after 24 hours. 07/11/24 12:47 Blood Culture - Preliminary Blood - Venous No growth after 24 hours. 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 LLE cellulitis and bony erosion of 5th metatarsal, WBC down, less erythema -1 dose of zosyn in ED -Vanco for 1 day, then changed to Daptomycin, and Ceftriaxon since admission -ID consult -PICC line once blood cultures negative at 48hrs for a total of 6 weeks Left stump wound--dressing changes q3 days -wound consult silverdine to abdominal wall IDDM - Acceptable control, A1C 6.3 - glargine 20U QHS and 10 in am , SSI - diabetic diet HTN - BP on lower side - hold BP meds (lisinopril and procardia) HLD - continue simvastatin Opioid dependence - continue methadone -addiction med consult full code VTE prophy: lovenox Pt with LLE cellulitis with risk factors for progression including poorly controlled DM, chronic venous statis, and hx osteomyelitis requiring IV abx therefore will be admitted for at least 2 midnights stay. Quality Stroke Does the patient have a stroke diagnosis?: No VTE Prior VTE?: No VTE Risk Level:: Medical - moderate - high VTE Device Contraindication: Treatment Not Tolerated VTE Drug Contraindication: N/A - Med Ordered
[2024-07-13 11:29] LABS: Glucose, Whole Blood 205 mg/dL (60-115)
[2024-07-13] MEDS: Enoxaparin Sodium 40 MG/0.4 ML SYRINGE SUBCUT (14:31)
--- NOTE | 2024-07-13 14:40 | PC.NURSE ---
pt requested right stump dressing not be changed was changed yesterday , dressing clean dry and intact. left great toe dressing changed
[2024-07-13 15:37] VITALS: BP 141/71; PULSE 67; RESP 17; TEMP 36.3; O2SAT 97
[2024-07-13 15:58] LABS: Glucose, Whole Blood 160 mg/dL (60-115)
[2024-07-13] MEDS: cefTRIAXone sodium 1 GM in 0.9 % Sodium Chloride 50 ML IV (17:23)
[2024-07-13] MEDS: DAPTOmycin 500 MG in 0.9 % Sodium Chloride 50 ML 100 MG IV (17:54)
[2024-07-13 19:46] LABS: Glucose, Whole Blood 183 mg/dL (60-115)
[2024-07-13] MEDS: Atorvastatin Calcium 20 MG TABLET PO (20:38)
[2024-07-13 23:49] VITALS: BP 137/70; PULSE 71; RESP 18; TEMP 36.4; O2SAT 96
[2024-07-14 04:18] VITALS: BP 125/69; PULSE 59; RESP 18; TEMP 36.6; O2SAT 96
[2024-07-14 07:22] VITALS: BP 131/66; PULSE 60; RESP 14; TEMP 36.4; O2SAT 96
[2024-07-14 07:29] LABS: Glucose, Whole Blood 159 mg/dL (60-115)
[2024-07-14] MEDS: Insulin Lispro 100 UNIT/ML 3 ML VIAL SUBCUT ×3 (08:30→20:54)
[2024-07-14] MEDS: 0.9 % Sodium Chloride Flush 3 ML SYRINGE IVFLUSH ×2 (08:31→15:46)
[2024-07-14 09:00] VITALS: BP 131/66; PULSE 60; O2SAT 96
[2024-07-14] MEDS: Insulin Glargine,Hum.rec.anlog 100 UNIT/ML 10 ML VIAL 10 UNIT SUBCUT (09:24)
[2024-07-14] MEDS: polyethylene glycoL 3350 17 GM POWD.PACK PO (09:24)
[2024-07-14] MEDS: methADONE HCl 20 MG/2 ML ORAL.CONC 90 MG PO (09:24)
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
[2024-07-14 10:31] LABS: Hematocrit 29.1 % (42.0-52.0); Hemoglobin 9.6 g/dl (14.0-18.0); Mean Corpuscular Hemoglobin 26.4 pg (27.0-33.0); Mean Corpuscular Volume 80.2 fL (80.0-98.0); Mean Platelet Volume 11.1 fL (9.4-12.4); Platelet Count 142 X10*3/uL (160-400); Red Blood Count 3.63 X10*6/uL (4.60-5.80); Red Cell Distribution Width 14.6 % (11.0-16.0); White Blood Count 4.4 X10*3/uL (4.8-10.8)
[2024-07-14 11:02] LABS: Anion Gap 10 (12-20); Blood Urea Nitrogen 18 mg/dL (9-16); Calcium 9.5 mg/dL (8.4-10.2); Carbon Dioxide 29 mmol/L (22-29); Chloride 102 mmol/L (96-108); Creatinine Clr Calc Pharmacy 121.4; Estimated Glomerular Filt Rate > 60; Glucose Random 166 mg/dL (60-115); Potassium 4.1 mmol/L (3.3-5.1); Sodium 137 mmol/L (135-145)
[2024-07-14] MEDS: Silver Sulfadiazine 1 % Cream 20 GM TUBE 1 APPL TOPICAL (11:03)
[2024-07-14 11:32] LABS: Glucose, Whole Blood 188 mg/dL (60-115)
--- NOTE | 2024-07-14 11:46 | MHC.CM.PN ---
EMR REVIEWED AND PER MD ROUNDS, PT WILL NEED A PICC LINE PLACED WITH PROBABLE DC TOMORROW. PT HAD A TEACH WITH [facility], PT DID WELL AND IS KNOWLEDGEABLE WITH [facility] HAS DONE MULTIPLE TIMES IN THE PAST. IV ORDERS COMPLETED AND ATTACHED TO [facility]. [facility] UPDATED. CM WILL CONTINUE TO FOLLOW
--- NOTE | 2024-07-14 14:54 | PM.PROC ---
Brief Operative Note Date of procedure: 07/14/24 Pre-op diagnosis: Needs care home access for IV antibiotics Post-op diagnosis: same Procedure: Right arm basilic, dual lumen, 41 cm, PASV PICC placed using US and FL. Tip at cavoatrial junction. Ok for use. Anesthesia: local
[2024-07-14 15:05] VITALS: BP 134/61; PULSE 68; RESP 18; TEMP 36.6; O2SAT 96
[2024-07-14] MEDS: cefTRIAXone sodium 1 GM VIAL IVPUSH (15:46)
[2024-07-14] MEDS: Enoxaparin Sodium 40 MG/0.4 ML SYRINGE SUBCUT (15:47)
[2024-07-14] MEDS: DAPTOmycin 500 MG in 0.9 % Sodium Chloride 50 ML 100 MG IV (15:47)
[2024-07-14 16:23] LABS: Glucose, Whole Blood 143 mg/dL (60-115)
[2024-07-14 20:28] LABS: Glucose, Whole Blood 194 mg/dL (60-115)
[2024-07-14] MEDS: Atorvastatin Calcium 20 MG TABLET PO (20:51)
[2024-07-14] MEDS: Insulin Glargine,Hum.rec.anlog 100 UNIT/ML 10 ML VIAL 20 UNIT SUBCUT (20:56)
--- NOTE | 2024-07-14 21:08 | W.PM.IDCN ---
History of Present Illness Data of Consult Service Date: 07/12/24 [facility] Primary Care Provider: Vicenta Nielsen NP HPI Reason for consult: sepsis,OM LLE great toe He presents with fever to 101.3 as well as tachycardia to 102 for a day. He has redness LLE and thin ulcer plantar great toe. He has diabetes and hypertension. XR shows density c/w OM. Review of Systems Review of Systems: Yes all other systems are reviewed and are negative [facility] Past Medical History Medical History (Updated 07/14/24 @ 21:16 by Mary Song MD) Osteomyelitis Sepsis History of opioid abuse Hx of hepatitis C Amputated toe Osteomyelitis of great toe of right foot Uncontrolled diabetes mellitus with hyperglycemia Osteomyelitis Asthma Cellulitis High cholesterol Kidney stones HTN (hypertension) Family History Family history: reviewed and not pertinent Surgical History Surgical History History of amputation of left foot through metatarsal bone History of right lower limb amputation History of lithotripsy Social History Social History Household Members: Family Housing: House Do you presently have visiting nurse or other home services: Yes ([facility] and [facility]) Patient Tobacco Use Status: Former Tobacco user Tobacco use type: Cigarette Smoked in Last 30 Days: No Patient Interested in Nicotine Replacement: No Patient Given Instructions on How to Stop Smoking: No Second Hand Smoke Exposure: No Use of substances other than those prescribed or required for medical reasons: No Substance Use Type: Crack/Cocaine and Marijuana Currently Displaying Signs/Symptoms of Drug Intoxication Withdrawal: No Any prior treatment program specific to substance use: No Have you been hit, kicked, punched, or otherwise hurt by someone within the past year? If so, by whom?: No Is there a partner from a previous relationship who is making you feel unsafe now?: No Advance Directives: Yes Advance Directives Information Provided: Yes Advance Directives on File: No Advance Directives Date on File: 07/12/24 Do you have a plan to hurt others: No Plan Recently lost weight without trying: No Eating poorly because of decreased appetite: No Nutrition Risks: No Nutritional Risk Poor oral hygiene: No service: No Current occupational status: unemployed Meds Allergies Allergy/AdvReac Type Severity Reaction Status Date / Time bee venom protein (honey bee) Allergy Severe Anaphylaxis Verified 07/11/24 12:28 erythromycin base Allergy Intermediate Rash Verified 07/11/24 12:28 Iodinated Contrast Media AdvReac Intermediate Shortness Verified 07/11/24 12:28 of Breath Active Medications: Current Medications Acetaminophen (Acetaminophen 325 Mg Tablet) 650 mg PO Q6H PRN PRN Reason: Pain, Mild (Pain Scale 1-3), fever or headache Last Admin: 07/11/24 20:08 Dose: 650 mg Atorvastatin Calcium (Atorvastatin Calcium 20 Mg Tablet) 20 mg PO BEDTIME [facility] Last Admin: 07/14/24 20:51 Dose: 20 mg Calcium Carbonate (Calcium Carbonate 750 Mg Tab.Chew) 750 mg PO Q4H PRN PRN Reason: Heartburn Ceftriaxone Sodium (Ceftriaxone Sodium 1 Gm Vial) 1 gm IVPUSH Q24H [facility] Last Admin: 07/14/24 15:46 Dose: 1 gm Enoxaparin Sodium (Enoxaparin Sodium 40 Mg/0.4 Ml Syringe) 40 mg SUBCUT Q24H [facility] Last Admin: 07/14/24 15:47 Dose: 40 mg Glucose (Glucose Gel 15 Gm Gel..Gram.) 15 gm PO Q15M PRN; Protocol PRN Reason: per Hypoglycemia Standing Ord. Dextrose (D10) 250 mls @ 750 mls/hr IV Q15M PRN; Protocol PRN Reason: per Hypoglycemia Standing Ord. Daptomycin 500 mg/ Sodium (Chloride) 60 mls @ 100 mls/hr IV Q24H [facility] Last Infusion: 07/14/24 16:41 Dose: Infused Insulin Glargine (Insulin Glargine,Hum.Rec.Anlog 100 Unit/Ml 10 Ml Vial) 20 unit SUBCUT BEDTIME [facility] Last Admin: 07/14/24 21:08 Dose: Not Given Insulin Glargine (Insulin Glargine,Hum.Rec.Anlog 100 Unit/Ml 10 Ml Vial) 10 unit SUBCUT DAILY [facility] Last Admin: 07/14/24 09:24 Dose: 10 unit Insulin Human Lispro (Insulin Lispro 100 Unit/Ml 3 Ml Vial) 0 unit SUBCUT QIDACHS [facility]; Protocol Last Admin: 07/14/24 20:54 Dose: 2 unit Magnesium Hydroxide (Milk Of Magnesia 30 Ml Oral.Susp) 30 ml PO DAILY PRN PRN Reason: Constipation Melatonin (Melatonin 3 Mg Tablet) 6 mg PO BEDTIME PRN PRN Reason: Insomnia Methadone HCl (Methadone Hcl 20 Mg/2 Ml Oral.Conc) 90 mg PO DAILY [facility] Last Admin: 07/14/24 09:24 Dose: 90 mg Polyethylene Glycol (Polyethylene Glycol 3350 17 Gm Powd.Pack) 17 gm PO DAILY [facility] Last Admin: 07/14/24 09:24 Dose: 17 gm Senna (Sennosides 8.6 Mg Tablet) 17.2 mg PO BEDTIME PRN PRN Reason: Constipation Last Admin: 07/12/24 21:31 Dose: 17.2 mg Silver Sulfadiazine (Silver Sulfadiazine 1 % Cream 20 Gm Tube) 1 appl TOPICAL DAILY [facility] Last Admin: 07/14/24 11:03 Dose: 1 appl Sodium Chloride (0.9 % Sodium Chloride Flush 3 Ml Syringe) 3 ml IVFLUSH QSHIFT [facility] Last Admin: 07/14/24 15:46 Dose: 3 ml Home Medications ?Medication ?Instructions ?Recorded ?Confirmed ?Last Taken ?Type blood sugar diagnostic (FreeStyle #10 ea 12/17/22 12/17/22 Unknown History Lite Strips) flash glucose sensor (FreeStyle #1 ea 12/17/22 12/17/22 Unknown History Oumar 2 Sensor kit) lancets 33 gauge (TRUEplus Lancets) #100 ea 12/17/22 12/17/22 Unknown History pen needle, diabetic 32 gauge x #50 ea 12/17/22 12/17/22 Unknown History 1/4 (Easy Touch) methadone 10 mg/mL oral 97 mg PO DAILY 03/22/23 07/12/24 07/11/24 History concentrate (Methadone Intensol) insulin lispro 100 unit/mL 2 - 17 unit subcut TID 07/01/23 07/11/24 07/11/24 History subcutaneous pen [id number] 1 tab PO DAILY 07/01/23 07/11/24 07/11/24 History fumarate 7.5 mg-folic acid 400 mcg tablet lisinopril 20 mg tablet 20 mg PO DAILY 05/19/24 07/11/24 07/11/24 History verapamil 100 mg capsule 24hr 100 mg PO BEDTIME 05/19/24 07/11/24 07/10/[address],ext.release atorvastatin 20 mg tablet 20 mg PO BEDTIME 07/11/24 07/11/24 07/10/24 History polyethylene glycol 3350 17 17 g PO DAILY 07/11/24 07/11/24 07/11/24 History gram/dose oral powder Physical Exam Vital Signs: Vital Signs: Last Vital Signs Temp 97.8 F 07/14/24 15:05 Pulse 68 07/14/24 15:05 Resp 18 07/14/24 15:05 BP 134/61 07/14/24 15:05 Pulse Ox 96 07/14/24 15:05 O2 Del Method Room Air 07/14/24 15:05 Oxygen Flow Rate 2 07/11/24 12:27 BMI result Body Mass Index 37.5 Const: General: cooperative HEENT: Head: Yes normal to inspection Face and sinus: Yes normal facial exam Mouth: Normal oral and palatal mucosa present Teeth and gingiva: dentition normal Eyes: General: appearance normal, both eyes and all related structures Pupils: Equal, round and reactive pupils present Resp: Effort & Inspection: normal respiratory effort Cardio: Rate: regular rate Rhythm: regular rhythm GI: Palpation (GI): Soft to palpation and nontender : General: Yes no CVA tenderness Back/Spine/Pelvis: Back: no CVA tenderness Skin: General skin exam: no rashes or lesions noted Neuro: General: moves all extremities Cranial nerves: Yes Equal, round and reactive pupils present Extrem: Other: right BKA left great toe ulcer plantar great toe 1 cm dimension,5mm deep Psych: Appearance: grossly normal Results Labs 07/14/24 09:38 07/14/24 09:38 Labs: Short CBC 07/14/24 Range/Units 09:38 WBC 4.4 L (4.8-10.8) X10*3/uL Hgb 9.6 L (14.0-18.0) g/dl Hct 29.1 L (42.0-52.0) % Plt Count 142 L (160-400) X10*3/uL BMP 07/14/24 09:38 Sodium 137 Potassium 4.1 Chloride 102 Carbon Dioxide 29 BUN 18 H Creatinine 0.82 Calcium 9.5 Microbiology Microbiology Results: Microbiology 07/11/24 13:06 Blood - Venous Blood Culture - Preliminary No growth after 48 hours. 07/11/24 12:47 Blood - Venous Blood Culture - Preliminary No growth after 48 hours. Assessment and Plan (1) Left leg cellulitis: Status: Acute (2) Sepsis: Status: Acute (3) Osteomyelitis: Status: Acute Plan He has sepsis although not bacteremic likely from LLE wound. He has had infections in legs chronically. Would give Daptomycin 6-8 mg/kg/daily for six weeks Group B strep and MRSA. Check CBC,creatinine,CK weekly Can see in followup.
[2024-07-14 23:33] VITALS: BP 156/65; PULSE 80; RESP 17; TEMP 36; O2SAT 97
[2024-07-15] MEDS: 0.9 % Sodium Chloride Flush 3 ML SYRINGE IVFLUSH ×3 (00:28→17:28)
[2024-07-15 07:28] LABS: Glucose, Whole Blood 174 mg/dL (60-115)
[2024-07-15 07:58] VITALS: BP 121/63; PULSE 60; RESP 18; TEMP 36.6; O2SAT 92
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
[2024-07-15] MEDS: methADONE HCl 20 MG/2 ML ORAL.CONC 90 MG PO (09:43)
[2024-07-15] MEDS: Insulin Lispro 100 UNIT/ML 3 ML VIAL SUBCUT ×2 (09:44→12:19)
[2024-07-15] MEDS: polyethylene glycoL 3350 17 GM POWD.PACK PO (09:44)
[2024-07-15] MEDS: Insulin Glargine,Hum.rec.anlog 100 UNIT/ML 10 ML VIAL 10 UNIT SUBCUT (09:44)
[2024-07-15] MEDS: Silver Sulfadiazine 1 % Cream 20 GM TUBE 1 APPL TOPICAL (09:50)
[2024-07-15 11:14] LABS: Glucose, Whole Blood 243 mg/dL (60-115)
--- NOTE | 2024-07-15 11:55 | MHC.CM.PN ---
Addendum entered by Judy Lawson 07/15/24 15:02: BLS TRANSPORT BOOKED WITH [facility] FOR 1800 HOURS Original Note: CM SPOKE WITH PT THIS MORNING WHO SAID HE WAS SURPRISED THAT HE MAY DC HE DID NOT THINK IT HAPPENED ON THE WEEKEND CM EXPLAINED LONG THE MEDS COULD BE DELIVERED AND THE [facility] WAS IN ORDER FOR SOC, HE MAY DC TODAY PT STATES HE IS UNSURE IF HIS SISTER WILL BE HOME TO LET HIM IN, HE ALSO SAYS HE FEELS HE SHOULD REMAIN UNTIL WEDNESDAY SINCE HE NEEDS TO COME BACK FOR AN APPT CM SPOKE TO [facility], THEY ARE SET TO DELIVER MEDS TODAY [facility] IS PREPARED TO RESUME SERVICES TOMORROW CM CALLED PTS SISTER, KENAN, AT THE NUMBER ON FILE TO ENSURE SHE WOULD BE HOME FOR MED DELIVERY SHE EXPRESSED SEVERAL CONCERNS INCLUDING PT NOT HAVING DME OR A BED, BUT THEN EXPLAINS THERE IS NO WHERE FOR A BED HIS FUTURE ROOM IS BEING REMODELED PER DISCUSSION, CM WILL MAKE A REFERRAL TO [facility] TO DETERMINE IF HE WOULD BE ELIGIBLE FOR A COMMUNITY CM AND POWER AND RECOVERY SHIFT ENGINEER SISTER REPORTS THEY WERE SUPPOSED TO BE GETTING A POWER AND RECOVERY SHIFT ENGINEER, BUT THEY HAVE NOT HEARD BACK ABOUT IT PT WILL BE TRANSPORTED VIA BLS SISTER CONFIRMS SHE WILL BE HOME THIS AFTERNOON FOR MED DELIVERY AND TO LET PT IN
--- NOTE | 2024-07-15 13:32 | PM.DS ---
DS: Providers Provider Date of Service: 07/15/24 Date of admission: 07/11/24 15:42 Primary care physician: Vicenta Nielsen NP Consults: 07/12/24 03:16 Consult to Wound Care Routine Reason for consultation: ulcer to left great toe with cellulitis left leg Has provider been notified: Yes 07/12/24 10:27 Addiction Medicine Routine Consulting Provider: Addiction Covering Reason for consultation: opioid dependence 07/14/24 08:00 Consult to Infectious Diseases Routine Consulting Provider: [facility] [place] [facility] Reason for consultation: extensive cellulitis and possible osteo DS: Diagnosis Discharge Diagnosis (1) Left leg cellulitis: Status: Resolved (2) Diabetes: Status: Inactive DS: Summary Hospital Course Hospital Course: Chief Complaint: fever, rash LLE 59 yo male with past medical history of IDDM (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 He reports he has been seen by wound care every other day for left foot ulcers which have been improving. His temperature he reports was up to 103 at home. He took Tylenol and the fever returned. It is not painful but itchy and warm. No change in size since this morning. He also reports spilling hot tea on his chest yesterday with a partial-thickness burn. He does not feel that the fever is related to the burn, but related to the lower extremity rash and warmth. 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 LLE cellulitis and bony erosion of 5th metatarsal, WBC down, erythema of the legs is nearly all gone today. He got one dose of zosyn in the ED and then was on Ceftriaxone and Vancomycin, blood cultures have been. Infectious disease is recommending 6 week of IV daptomycin, ending August. A picc line was inserted on 07/14. -Vanco for 1 day, then changed to Daptomycin, and Ceftriaxon since admission Left stump wound--dressing changes q3 days as before Burn wound on the chest Silvadene dressing daily IDDM - Acceptable control, A1C 6.3 -to resume home regimen - diabetic diet diet HTN -Blood pressure medication have been on hold since admission, mostly normal with occasional high and HR on lower side, will stop Verapamil and reduce Lisinopril to 10 mg daily. HLD - continue simvastatin Opioid dependence - continue methadone -addiction med consult Time Attestation Discharge Coordination Time (in mins): 40 Quality: Safe Use of Opioids Does Pt have an Active Cancer Diagnosis on the Problem List?: No Quality: Stroke Does the patient have a stroke diagnosis?: No Physical Exam Vital Signs: Vital Signs: Last Vital Signs Temp 97.8 F 07/15/24 07:58 Pulse 60 07/15/24 07:58 Resp 18 07/15/24 07:58 BP 121/63 07/15/24 07:58 Pulse Ox 92 07/15/24 07:58 O2 Del Method Room Air 07/15/24 07:58 Oxygen Flow Rate 2 07/11/24 12:27 BMI result Body Mass Index 37.5 DS: Data Data Completed and Pending Completed studies during hospitalization [Text1]: Procedures Insertion of Infusion Device into Superior Vena Cava, Percutaneous Approach (10/08/22) Ultrasonography of Superior Vena Cava, Guidance (10/08/22) Labs on day of discharge: Laboratory Results - last 24 hr 07/14/24 07/14/24 07/15/24 16:15 20:24 07:21 POC Glucose 143 H 194 H 174 H 07/15/24 11:10 POC Glucose 243 H Preliminary micro results at discharge 07/11/24 13:06 Blood Culture - Preliminary Blood - Venous No growth after 48 hours. 07/11/24 12:47 Blood Culture - Preliminary Blood - Venous No growth after 48 hours. Discharge Plan Discharge Anticipated Discharge Date/Time: 07/15/24 09:25 Patient Disposition: Xfer SNF Discharge Diagnosis: Osteomylitis of the foot Referrals: [facility] [Other] - 1 Day ([facility] to resume services on Wednesday07/16/24) [facility] [Other] ([facility] to deliver meds and supplies today ) Vicenta Nielsen ASSISTANT PROFESSOR OF COMMUNICATION [Primary Care Provider] - 1 Week Discharge Medications: New daptomycin 500 mg Recon Soln 500 mg IV Q24H Qty: 39 0RF lisinopril 10 mg tablet 10 mg PO DAILY Qty: 90 0RF Continued (DME) FreeStyle Oumar 3 Sensor Device See Rx Instructions .ROUTE .MEDSUPPLY Qty: 2 11RF Rx Instructions: As directed methadone [Methadone Intensol] 10 mg/mL Concentrate 97 mg PO DAILY atorvastatin 20 mg tablet 20 mg PO BEDTIME polyethylene glycol 3350 17 gram/dose powder 17 g PO DAILY (DME) FreeStyle Oumar 2 Sensor Kit See Rx Instructions .ROUTE Q2W Qty: 1 Rx Instructions: As directed (DME) pen needle, diabetic [Easy Touch] 32 gauge x 1/4 needle See Rx Instructions .ROUTE .MEDSUPPLY Qty: 50 Rx Instructions: As directed 5 times a day (DME) lancets [TRUEplus Lancets] 33 gauge misc See Rx Instructions .ROUTE QID Qty: 100 Rx Instructions: As directed 4 times a day (DME) FreeStyle Lite Strips Strip See Rx Instructions .ROUTE QID Qty: 10 Rx Instructions: As directed 4 times a day [id number]-tnj-uynf fum-folic ac 7.5 mg iron-400 mcg tablet 1 tab PO DAILY insulin lispro 100 unit/mL insulin pen 2 - 17 unit subcut TID insulin glargine [Lantus Solostar U-100 Insulin] 100 unit/mL (3 mL) insulin pen 30 unit subcut BEDTIME 30 Days Qty: 9 3RF (DME) FreeStyle Oumar 3 [place] Misc See Rx Instructions .ROUTE .MEDSUPPLY Qty: 1 0RF Rx Instructions: As directed Discontinued lisinopril 20 mg tablet 20 mg PO DAILY verapamil 100 mg capsule, [address] 100 mg PO BEDTIME Discharge Orders: Discharge Order (Routine); Ordered 07/15/24 Ordered By: Steven Naik Diet: Diabetic diet Activity on Discharge: As tolerated Stand Alone Forms: Patient Portal Discharge page Print Language: Lebanese Activity Restrictions/Additional Instructions: Topical Wound Care Recommendations: Left Great toe and Right Residual Leg - Cleanse with NS, moist gauze. Apply Alginate to wound bed, cover with dry gauze and wrap. Per patient request tejas wrap applied to right residual leg. Abdomen - Cleanse with Ns moist gauze, pat dry. Apply silvadine per MD order with nonadherent cover dressing. Recommend follow up out patient Wound Clinic at [address] [place] [phone] and to call for an appointment at time of discharge. [phone].? Care Plan Goals: resolution of osteomylitis and cellulitis Health Concerns: osteomylitis and cellulitis of the leg Plan of Treatment: take Daptomycin IV daily for a total of 6 weeks ending August 23 Stop taking Verapamil. Lisinopril dose reduced to 10 mg daily you may continue to take Lantus 10 in the morning and 20 at night or resume prior dose of 30 once a day Assessment: see above Discharge Date/Time: 07/15/24 18:13
[2024-07-15] MEDS: DAPTOmycin 500 MG in 0.9 % Sodium Chloride 50 ML 100 MG IV (14:16)
[2024-07-15 15:33] VITALS: BP 141/70; PULSE 59; RESP 16; TEMP 36.8; O2SAT 94
[2024-07-15 16:29] LABS: Glucose, Whole Blood 143 mg/dL (60-115)
[2024-07-15] MEDS: Heparin Sodium,Porcine Flush 50 UNITS/5 ML SYRINGE IVFLUSH (17:28)
[2024-07-17 08:34] LABS: Glucose, Whole Blood 165 mg/dL (60-115)
== END 2024-07-15 18:13 | disposition skilled nursing facility (03) | DRG 344 ==
LOC: HO.ED 14:11 → HO.EDOVER 15:48 → HO.S3 07-12 00:44
PROVIDERS: Student in an Organized Health Care Education/Training Program; Admitting Provider Physician Assistant; Emergency Provider Emergency Medicine; PCP Nurse Practitioner Family; Referring Provider Internal Medicine; Visit Provider Internal Medicine
DX: E11.69 Type 2 diabetes mellitus with other specified complication (principal); M86.9 Osteomyelitis, unspecified; E11.621 Type 2 diabetes mellitus with foot ulcer; L03.116 Cellulitis of left lower limb; T31.0 Burns involving less than 10% of body surface; L97.529 Non-pressure chronic ulcer of other part of left foot with unspecified severity; F11.20 Opioid dependence, uncomplicated; E11.65 Type 2 diabetes mellitus with hyperglycemia; E78.5 Hyperlipidemia, unspecified; I10 Essential (primary) hypertension; K21.9 Gastro-esophageal reflux disease without esophagitis; T21.22XA Burn of second degree of abdominal wall, initial encounter; X12.XXXA Contact with other hot fluids, initial encounter; I87.2 Venous insufficiency (chronic) (peripheral); Z20.822 Contact with and (suspected) exposure to COVID-19; Z89.511 Acquired absence of right leg below knee; Z79.4 Long term (current) use of insulin; Z79.899 Other long term (current) drug therapy
CPT/HCPCS: 0241U; 36415; 36573; 71045; 73630; 80048; 80076; 80202; 80307; 81003; 82550; 82947; 83036; 83605; 83735; 85025; 85027; 85610; 85652; 86140; 87040; 93005; 97162; 99222; 99285; J0696; J0878; J1642; J1650; J2543; J3370; J3371; J7120

== ENCOUNTER → 2024-07-11 12:38 | Outpatient (BNV) | payer MEDICAID, SELFPAY | PROVIDERS: Admitting Provider Physician Assistant; Emergency Provider Emergency Medicine; PCP Nurse Practitioner Family; Visit Provider Internal Medicine Cardiovascular Disease | DX: A41.89 Other specified sepsis (principal) | CPT/HCPCS: 93010 ==

== ENCOUNTER 2024-07-11 15:42 | Outpatient (BNV) | payer MEDICAID, SELFPAY | END 2024-07-14 14:00 | PROVIDERS: Admitting Provider Physician Assistant; Emergency Provider Emergency Medicine; PCP Nurse Practitioner Family; Referring Provider Internal Medicine; Visit Provider Physician Assistant Surgical | DX: L03.116 Cellulitis of left lower limb (principal) | CPT/HCPCS: 36573 ==

== ENCOUNTER → 2024-07-11 15:42 | Outpatient (BNV) | payer MEDICAID, SELFPAY | PROVIDERS: Admitting Provider Physician Assistant; Emergency Provider Emergency Medicine; PCP Nurse Practitioner Family; Visit Provider Internal Medicine | DX: L03.116 Cellulitis of left lower limb (principal); E11.622 Type 2 diabetes mellitus with other skin ulcer; T87.89 Other complications of amputation stump | CPT/HCPCS: 99222; 99232; 99239 ==

== ENCOUNTER → 2024-07-11 15:42 | Outpatient (BNV) | payer MEDICAID, SELFPAY | PROVIDERS: Admitting Provider Physician Assistant; Emergency Provider Emergency Medicine; PCP Nurse Practitioner Family; Visit Provider Internal Medicine | DX: L03.116 Cellulitis of left lower limb (principal); A41.9 Sepsis, unspecified organism; M86.9 Osteomyelitis, unspecified | CPT/HCPCS: 99222 ==

== ENCOUNTER 2024-07-15 18:47 | Emergency (ER) | payer MEDICAID, SELFPAY ==
[2024-07-15 19:07] VITALS: BP 300/140; PULSE 75; O2SAT 96
[2024-07-15 19:16] VITALS: BP 153/82; PULSE 64; RESP 16; TEMP 36; O2SAT 96; BMI 35.4
[2024-07-15 19:23] VITALS: BP 153/82; PULSE 64; TEMP 36; O2SAT 96
--- NOTE | 2024-07-15 19:24 | PC.NURSE ---
Pt is a&o, no signs of distress. Pt denies pain, and is asymptomatic Pt sitting up in bed, talking on the phone Pts fam at bedside Plan of care ongoing.
--- NOTE | 2024-07-15 20:16 | ED.GENADULT ---
HPI - General Adult General Chief complaint: General Medical Stated complaint: HTN *220/100 Time Seen by Provider: 07/15/24 20:06 Source: patient, RN notes reviewed and old records reviewed Mode of arrival: ambulatory Limitations: no limitations History of Present Illness ED Provider: Kristian HPI narrative: 59-year-old male presents for evaluation of ?high blood pressure. ? The patient is discharged this afternoon from this facility. He is being treated for left lower extremity cellulitis and osteomyelitis of the left 5th toe. He is currently on daptomycin once daily via PICC line The patient was being transferred home by ambulance due to a right BKA The patient arrived home in the ambulance, he was having his vitals rechecked by the ambulance crew and was told his blood pressure was ?220/120 and up to 300 systolic. ? The patient has no complaints or concerns, reports that he feels well Apparently the ambulance crew return to the ER about 30 minutes after dropping the patient off and informed staff that the blood pressure cuff is broken Related Data Home Medications ?Medication ?Instructions ?Recorded ?Confirmed blood sugar diagnostic (FreeStyle #10 ea 12/17/22 12/17/22 Lite Strips) flash glucose sensor (FreeStyle #1 ea 12/17/22 12/17/22 Oumar 2 Sensor kit) lancets 33 gauge (TRUEplus Lancets) #100 12/17/22 12/17/22 pen needle, diabetic 32 gauge x #50 12/17/22 12/17/2210/07 (Easy Touch) methadone 10 mg/mL oral 97 mg PO DAILY 03/22/23 07/12/24 concentrate (Methadone Intensol) insulin lispro 100 unit/mL 2 - 17 unit subcut TID 07/01/23 07/11/24 subcutaneous pen ilzdmqrawawh-wehlxhzo-qriz 1 tab PO DAILY 07/01/23 07/11/24 fumarate 7.5 mg-folic acid 400 mcg tablet atorvastatin 20 mg tablet 20 mg PO BEDTIME 07/11/24 07/11/24 polyethylene glycol 3350 17 17 g PO DAILY 07/11/24 07/11/24 gram/dose oral powder Previous Rx's ?Medication ?Instructions ?Recorded insulin glargine 100 unit/mL (3 30 unit (0.3 mL) subcut BEDTIME 30 05/19/24 mL) subcutaneous pen (Lantus days #9 mL Solostar U-100 Insulin) blood-glucose sensor (FreeStyle #2 ea 06/02/24 Oumar 3 Sensor device) blood-glucose meter,continuous #1 ea 06/16/24 (FreeStyle Oumar 3 Fletcher) daptomycin 500 mg intravenous 500 mg IV Q24H #39 ea 07/15/24 solution lisinopril 10 mg tablet 10 mg PO DAILY #90 tabs 07/15/24 Allergies Allergy/AdvReac Type Severity Reaction Status Date / Time bee venom protein (honey bee) Allergy Severe Anaphylaxis Verified 07/15/24 19:19 erythromycin base Allergy Intermediate Rash Verified 07/15/24 19:19 Iodinated Contrast Media AdvReac Intermediate Shortness Verified 07/15/24 19:19 of Breath PMFSH Past Medical History Medical History (Updated 07/15/24 @ 20:16 by Joss Townsend) Osteomyelitis Sepsis History of opioid abuse Hx of hepatitis C Amputated toe Osteomyelitis of great toe of right foot Uncontrolled diabetes mellitus with hyperglycemia Osteomyelitis Asthma Cellulitis High cholesterol Kidney stones HTN (hypertension) Surgical History History of amputation of left foot through metatarsal bone History of right lower limb amputation History of lithotripsy Social History Social History Household Members: Family Housing: House Do you presently have visiting nurse or other home services: Yes (VNA and 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) Patient Tobacco Use Status: Former Tobacco user Tobacco use type: Cigarette Smoked in Last 30 Days: No Second Hand Smoke Exposure: No Use of substances other than those prescribed or required for medical reasons: No Substance Use Type: Crack/Cocaine and Marijuana Advance Directives: Yes Advance Directives on File: Yes Advance Directives Date on File: 07/12/24 service: No Current occupational status: unemployed Physical Exam ED Vital Signs: Vital Signs - 24 hr 07/15/24 19:16 07/15/24 19:23 Temperature 96.8 F 96.8 F Pulse Rate 64 64 Respiratory Rate 16 Blood Pressure 153/82 H 153/82 H Pulse Oximetry 96 96 Oxygen Delivery Method Room Air BMI result Body Mass Index 35.4 Const General: healthy appearing, comfortable, no acute distress, alert and awake Nutritional Appearance: well nourished Orientation/consciousness: patient oriented x3 HENMT Head: Yes normocephalic and Yes atraumatic Eyes Eyelids: Yes eyelids normal Conjunctivae: conjunctivae normal Sclerae: sclerae normal Corneas: corneas normal Pupils: Equal, round and reactive pupils present EOM: EOMs intact bilaterally Neck Neck: Yes full ROM Resp Effort & Inspection: normal respiratory effort, able to speak in complete sentences and not labored Cardio Rate: regular rate Rhythm: regular rhythm Skin General skin exam: elasticity normal Neuro General: patient oriented x3 Cranial nerves: Yes Equal, round and reactive pupils present and Yes Bilaterally intact EOM present Cognition (Neuro): normal cognition Extrem Other: Moving all extremities well without any obvious deformities Medical Decision Making Medical Decision Making MDM Narrative: 59-year-old male presents for evaluation of elevated blood pressure reading. On arrival to the ED his blood pressure is 153/82. The patient is asymptomatic, he was just discharged sniff facility yesterday. He has no chest pain or headache. Given that the ambulance crew informed staff that their blood pressure cuff was broken and we have a much more reassuring blood pressure reading, the patient be discharged at this time Differential Diagnosis Differential Diagnoses: The differential diagnosis associated with the presentation includes Hypertension Elevated blood pressure Blood pressure cuff malfunction Discharge Plan Discharge Clinical Impression: Hypertension Patient Disposition: Home, Self-Care Instructions: Hypertension (ED) Additional Instructions: Your blood pressure today is 153/82. Though this is slightly elevated, it is not at a concerning level. Take all your medications as prescribed Follow-up with your primary doctor, return for new or worsening symptoms Prescriptions: No Action (DME) FreeStyle Oumar 3 Sensor Device See Rx Instructions .ROUTE .MEDSUPPLY Qty: 2 11RF Rx Instructions: As directed methadone [Methadone Intensol] 10 mg/mL Concentrate 97 mg PO DAILY atorvastatin 20 mg tablet 20 mg PO BEDTIME polyethylene glycol 3350 17 gram/dose powder 17 g PO DAILY daptomycin 500 mg Recon Soln 500 mg IV Q24H Qty: 39 0RF lisinopril 10 mg tablet 10 mg PO DAILY Qty: 90 0RF (DME) FreeStyle Oumar 2 Sensor Kit See Rx Instructions .ROUTE Q2W Qty: 1 Rx Instructions: As directed (DME) pen needle, diabetic [Easy Touch] 32 gauge x 1/4 needle See Rx Instructions .ROUTE .MEDSUPPLY Qty: 50 Rx Instructions: As directed 5 times a day (DME) lancets [TRUEplus Lancets] 33 gauge misc See Rx Instructions .ROUTE QID Qty: 100 Rx Instructions: As directed 4 times a day (DME) FreeStyle Lite Strips Strip See Rx Instructions .ROUTE QID Qty: 10 Rx Instructions: As directed 4 times a day shfxkenn-zlp-qlzz fum-folic ac 7.5 mg iron-400 mcg tablet 1 tab PO DAILY insulin lispro 100 unit/mL insulin pen 2 - 17 unit subcut TID insulin glargine [Lantus Solostar U-100 Insulin] 100 unit/mL (3 mL) insulin pen 30 unit subcut BEDTIME 30 Days Qty: 9 3RF (DME) FreeStyle Oumar 3 [place] Misc See Rx Instructions .ROUTE .MEDSUPPLY Qty: 1 0RF Rx Instructions: As directed Print Language: Amharic
[2024-07-15 21:04] VITALS: BP 153/82; PULSE 64; RESP 16; TEMP 36; O2SAT 96
== END 2024-07-15 21:07 | disposition home or self-care (01) ==
PROVIDERS: Emergency Provider Emergency Medicine
DX: I10 Essential (primary) hypertension (principal); E11.9 Type 2 diabetes mellitus without complications; E78.5 Hyperlipidemia, unspecified; Z79.02 Long term (current) use of antithrombotics/antiplatelets; Z79.4 Long term (current) use of insulin; Z89.422 Acquired absence of other left toe(s)
CPT/HCPCS: 99284

== ENCOUNTER 2024-07-19 10:23 | Outpatient (REF) | payer MEDICAID, SELFPAY ==
--- NOTE | ~2024-07-19 | US_ITS ---
EXAMINATION: US VENOUS RIGHT LOWER EXTREMITY (REFLUX EXAM) CLINICAL INDICATION: Nonhealing wounds COMPARISON: None TECHNIQUE: Color flow triplex imaging and compression Doppler was performed to evaluate both the deep and the superficial systems . To evaluate the superficial system, the examination was performed in the upright position. Color-flow Doppler ultrasound and compression ultrasound were utilized. In addition, maneuvers were utilized to demonstrate reflux. FINDINGS: 1. DEEP VENOUS ULTRASOUND OF THE RIGHT LOWER EXTREMITY: Respiratory variation, normal compression and augmented flow are noted in the right common femoral vein as well as the right popliteal vein and there is no evidence of deep venous thrombosis at these locations. There is no evidence of reflux in the deep system in either the common femoral vein or the popliteal vein. There is no evidence of a Valdovinos's cyst. 2. SUPERFICIAL ULTRASOUND WITH DOPPLER OF RIGHT LOWER EXTREMITY: The right great saphenous vein at the saphenofemoral junction measures 8 mm, at the proximal thigh 6 mm, at the mid thigh 4 mm, above the knee 4 mm, at the knee 3 mm, irxcx-tne-qhbm 3 mm. There is no reflux demonstrated in the right great saphenous vein. There is a right below the knee amputation. Duplicated Right Great Saphenous Vein: There is an accessory medial saphenous vein measuring 4 mm which does not reflux The right small saphenous vein measures 4 mm and shows no reflux. Accessory Vein of Giacomini: None Incompetent Perforators: None Varices Present: None There is a prominent right groin lymph node measuring 4.0 x 1.2 x 5.0 cm US/US venous duplex LE RT IMPRESSION: 1. No evidence of reflux or thrombus in the common femoral veins or popliteal veins bilaterally. 2. The saphenous systems are competent . Electronically signed by: Nahum Fernandez MD 07/23/2024 01:30 AM EDT
== END 2024-07-19 10:24 | disposition home or self-care (01) ==
LOC: HO.US 10:23
PROVIDERS: Visit Provider Surgery
DX: L97.812 Non-pressure chronic ulcer of other part of right lower leg with fat layer exposed (principal)
CPT/HCPCS: 93971

== ENCOUNTER 2024-07-24 12:41 | Outpatient (REF) | payer MEDICAID, SELFPAY ==
[2024-07-24 13:23] LABS: MANUAL DIFF FLAG NO
[2024-07-24 13:36] LABS: Basophils Percent Auto 0.7 % (0-2); Eosinophils Absolute Auto 0.1 X10*3/uL (0.0-0.4); Eosinophils Percent Auto 1.9 % (0-4); Hematocrit 31.7 % (42.0-52.0); Hemoglobin 10.1 g/dl (14.0-18.0); Imm Gran Abs Auto 0.02 X10*3/uL (0.00-0.03); Imm Gran Pct Auto 0.3 % (0.0-0.4); Lymphocytes Absolute Auto 1.2 X10*3/uL (1.2-4.9); Lymphocytes Percent Auto 20.8 % (20-40); Mean Corpuscular HGB Conc 31.9 g/dl (31.0-36.0); Mean Corpuscular Hemoglobin 26.1 pg (27.0-33.0); Mean Corpuscular Volume 81.9 fL (80.0-98.0); Mean Platelet Volume 11.4 fL (9.4-12.4); Monocytes Absolute Auto 0.6 X10*3/uL (0.1-1.2); Monocytes Percent Auto 10.7 % (2-11); Neutrophils Absolute Auto 3.8 x10*3/uL (2.0-8.3); Neutrophils Percent Auto 65.6 % (45-73); Platelet Count 225 X10*3/uL (160-400); Red Blood Count 3.87 X10*6/uL (4.60-5.80); Red Cell Distribution Width 14.6 % (11.0-16.0); White Blood Count 5.8 X10*3/uL (4.8-10.8)
[2024-07-24 15:11] LABS: Alanine Aminotransferase 27 U/L (0-40); Albumin Level 4.2 g/dL (3.5-5.0); Alkaline Phosphatase 68 U/L (39-117); Anion Gap 10 (12-20); Aspartate Amino Transferase 22 U/L (5-37); Bilirubin Total 0.2 mg/dL (0.0-1.0); Blood Urea Nitrogen 29 mg/dL (9-16); Calcium 9.9 mg/dL (8.4-10.2); Carbon Dioxide 27 mmol/L (22-29); Chloride 106 mmol/L (96-108); Estimated Glomerular Filt Rate > 60; Glucose Random 149 mg/dL (60-115); Potassium 4.7 mmol/L (3.3-5.1); Sodium 138 mmol/L (135-145); Total Protein 7.6 g/dL (6.5-8.0)
== END 2024-07-24 12:42 | disposition home or self-care (01) ==
LOC: HO.HHCL 12:41
PROVIDERS: Visit Provider Nurse Practitioner Family
DX: A41.02 Sepsis due to Methicillin resistant Staphylococcus aureus (principal); E11.65 Type 2 diabetes mellitus with hyperglycemia; Z79.4 Long term (current) use of insulin
CPT/HCPCS: 36415; 80053; 85025

== ENCOUNTER 2024-07-25 13:15 | Outpatient (REF) | payer MEDICAID, SELFPAY | END 2024-07-25 13:16 | disposition home or self-care (01) | LOC: HO.HHCLNP 13:15 | PROVIDERS: Visit Provider Nurse Practitioner Family | DX: R30.0 Dysuria (principal) | CPT/HCPCS: 87086 ==

== ENCOUNTER 2024-08-28 15:42 | Outpatient (AMB) | payer MEDICAID, SELFPAY ==
--- NOTE | 2024-08-28 16:32 | A.OFFVIS_ITS ---
Vital Signs 3 08/28/24 16:45 Pulse 73 Pulse Source Pulse Oximeter Temp 98.6 F Temp Source Oral Pulse Oximetry (%) 98 Oxygen Delivery Method Room Air Intake Visit Reasons: [facility] reffnd picc line 08/23 sepsis,OM LLE great toe Allergies bee venom protein (honey bee) Allergy (Severe, Verified 08/28/24 16:46) Anaphylaxis erythromycin base Allergy (Intermediate, Verified 08/28/24 16:46) Rash Iodinated Contrast Media Adverse Reaction (Intermediate, Verified 08/28/24 16:46) Shortness of Breath HPI HPI C reffnd picc line 08/23 sepsis,OM LLE great toe: Details: He has OM left great toe. He has been on antibiotics for six weeks. He has no complaints at this time. [facility] Medical History Diabetes Osteomyelitis Sepsis History of opioid abuse Hx of hepatitis C Amputated toe Osteomyelitis of great toe of right foot Uncontrolled diabetes mellitus with hyperglycemia Osteomyelitis Asthma Cellulitis High cholesterol Kidney stones HTN (hypertension) Surgical History History of amputation of left foot through metatarsal bone History of right lower limb amputation History of lithotripsy Social History Household Members: Family Housing: House Do you presently have visiting nurse or other home services: Yes ([facility]NA and ENTERTAINMENT REPORTER) Patient Tobacco Use Status: Former Tobacco user Tobacco use type: Cigarette Second Hand Smoke Exposure: No Substance Use Type: Crack/Cocaine and Marijuana Advance Directives Date on File: 07/12/24 service: No Current occupational status: unemployed Review of Systems Const All systems reviewed & are unremarkable except as noted in HPI and below Physical Exam Vital Signs: Last Vital Signs Temp 98.6 F 08/28/24 16:45 Pulse 73 08/28/24 16:45 Pulse Ox 98 08/28/24 16:45 Oxygen Delivery Method Room Air 08/28/24 16:45 Const Other: General: cooperative Orientation/consciousness: patient oriented x3 HEENT Head: Yes normal to inspection Mouth: Normal oral and palatal mucosa present Eyes General: appearance normal, both eyes and all related structures Pupils: Equal, round and reactive pupils present Resp Effort & Inspection: normal respiratory effort Cardio Rate: regular rate Rhythm: regular rhythm GI Palpation (GI): Soft to palpation and nontender General: Yes no CVA tenderness Back/Spine/Pelvis Back: no CVA tenderness Skin General skin exam: no rashes or lesions noted Neuro General: patient oriented x3 Cranial nerves: Yes CN's II-XII intact bilaterally and Yes Equal, round and reactive pupils present Extrem Other: feet appear similar to before Psych Appearance: grossly normal Assessment & Plan Assessment & Plan (1) Osteomyelitis: Comment: some improvement Code(s): M86.9 - Osteomyelitis, unspecified Category: Medical Plan: Finish with po antibiotics. See us again if needed. (2) Cellulitis: Code(s): L03.90 - Cellulitis, unspecified Category: Medical Plan: na Orders: Orders 2 IR cvc remove any age 1108/28/24 L03.90 - Cellulitis, unspecified, M86.9 - Osteomyelitis, unspecified Medications: New 2 doxycycline hyclate 100 mg PO BID 60 caps 0RF 30 days Coding Level of Care Code Est Pt Level 3 (29499) Diagnoses Osteomyelitis M86.9 Cellulitis L03.90
[2024-08-28 16:45] VITALS: PULSE 73; TEMP 37; O2SAT 98
== END 2024-08-28 16:14 | disposition home or self-care (01) ==
PROVIDERS: Visit Provider Internal Medicine
DX: M86.9 Osteomyelitis, unspecified (principal); L03.90 Cellulitis, unspecified
CPT/HCPCS: 99213

== ENCOUNTER → 2024-08-28 15:42 | Outpatient (BNVA) | payer MEDICAID, SELFPAY | PROVIDERS: Visit Provider Internal Medicine | DX: M86.9 Osteomyelitis, unspecified (principal); L03.90 Cellulitis, unspecified | CPT/HCPCS: 99212 ==

== ENCOUNTER 2024-09-15 09:56 | Outpatient (AMB) | payer MEDICAID, SELFPAY ==
[2024-09-15 10:07] VITALS: BP 120/56; PULSE 94
--- NOTE | 2024-09-15 10:07 | MHC.OFFVIS ---
Vital Signs 09/15/24 10:07 Height 5 ft 9 in BP 120/56 L Blood Pressure Location Lt brachial Position Sitting Pulse 94 Pulse Source Pulse Oximeter Intake Visit Reasons: T2DM/Confirmed Intake Note: Patient present today for Type 2 Diabetes Mellitus. Last Diabetic eye exam: 03/2024 Last Podiatry Visit: Doesn't have one Random Glucose: 137 mg/dl HgA1C: 6.3% 07/11/24 [employer] Required: No Accompanied by: Self / Same As Patient Allergies bee venom protein (honey bee) Allergy (Severe, Verified 09/15/24 10:17) Anaphylaxis erythromycin base Allergy (Intermediate, Verified 09/15/24 10:17) Rash Iodinated Contrast Media Adverse Reaction (Intermediate, Verified 09/15/24 10:17) Shortness of Breath HPI HPI T2DM/Confirmed: Details: Patient is a 59-year-old male with a significant past medical history hyperlipidemia, hypertension, type 2 diabetes, right lower leg amputation, chronic kidney disease, substance abuse presenting today for a follow up of his diabetes. He was last seen by my colleague in the summer. Endo: Dm-most recent A1c 6.3. He is currently on Lantus 20 units BID, lispro sliding scale cgm- hyperglycemic 42%, in range 57%, 1% low. GMI 7.4%, usage 93% -the one low glucose was at 6pm after he forgot to eat. he corrects it with candy or juice. does not want glucose tabs. -states he has been a little more hyperglycemic than normal because of his recent dental infections and leg infections (left leg following with wound clinic) In the past treated with Actos but intolerant, metformin states ineffective, not a candidate for GLP 1 as he has recurrent chronic pancreatitis, CV: Blood pressure today in the office is 120/56. He is currently on lisinopril 10 mg daily. His cholesterol is managed with atorvastatin 20 mg. [facility] Medical History (Updated 09/15/24 @ 10:16 by Anushka Pitts PA-C) Diabetes Osteomyelitis Sepsis History of opioid abuse Hx of hepatitis C Amputated toe Osteomyelitis of great toe of right foot Uncontrolled diabetes mellitus with hyperglycemia Osteomyelitis Asthma Cellulitis High cholesterol Kidney stones HTN (hypertension) Surgical History History of amputation of left foot through metatarsal bone History of right lower limb amputation History of lithotripsy Social History Household Members: Family Housing: House Do you presently have visiting nurse or other home services: Yes (VNA and OIL SPECULATOR) Patient Tobacco Use Status: Former Tobacco user Tobacco use type: Cigarette Second Hand Smoke Exposure: No Substance Use Type: Crack/Cocaine and Marijuana Advance Directives Date on File: 07/12/24 service: No Current occupational status: unemployed Physical Exam Vital Signs: Last Vital Signs Pulse 94 09/15/24 10:07 BP 120/56 L 09/15/24 10:07 Const Orientation/consciousness: patient oriented x3 Neck Neck: Yes no lymphadenopathy Thyroid: Thyroid normal Carotids: no bruits Resp Auscultation: clear to auscultation bilaterally Cardio Rate: regular rate Rhythm: regular rhythm Heart sounds: S1 normal heart sound present and S2 normal heart sound present Peripheral pulses: dorsalis pedis present Neuro General: patient oriented x3 Extrem Other: right bka noted. left lower leg wrapped Results Reviewed Results Reviewed: Laboratory Last Values Glucose (Clinic) 137 mg/dL (60-115) H 09/15/24 10:19 Laboratory Tests 06/02/24 06/02/24 07/11/24 11:49 11:59 12:47 Sodium Potassium Chloride Carbon Dioxide Anion Gap BUN Creatinine Estimated GFR Random Glucose Hemoglobin A1c % 6.3 H Triglycerides 61 Cholesterol 85 LDL Cholesterol, Calc 43 HDL Cholesterol 30 L Urine Creatinine 75.26 Urine Microalbumin 10.0 Microalb/Creat Ratio 13.2 07/24/24 12:44 Sodium 138 Potassium 4.7 Chloride 106 Carbon Dioxide 27 Anion Gap 10 L BUN 29 H Creatinine 0.83 Estimated GFR > 60 Random Glucose 149 H Hemoglobin A1c % Triglycerides Cholesterol LDL Cholesterol, Calc HDL Cholesterol Urine Creatinine Urine Microalbumin Microalb/Creat Ratio Assessment & Plan Assessment & Plan (1) Controlled type 2 diabetes mellitus with insulin therapy: Code(s): E11.9 - Type 2 diabetes mellitus without complications; Z79.4 - senior living (current) use of insulin Category: Medical Plan: currently well controlled. will continue current plan of lantus 20 units bid, lispro sliding scale f/u 3 months or sooner prn. labs prior to appointment. (2) HTN (hypertension): Code(s): I10 - Essential (primary) hypertension Category: Medical Plan: continue current plan (3) High cholesterol: Code(s): E78.00 - Pure hypercholesterolemia, unspecified Category: Medical Plan: wnl, continue lipitor Orders: Orders Hemoglobin A1c Today E11.9 - Type 2 diabetes mellitus without complications, E78.00 - Pure hypercholesterolemia, unspecified, I10 - Essential (primary) hypertension, Z79.4 - exterminator termite (current) use of insulin Basic Metabolic Panel Today E11.9 - Type 2 diabetes mellitus without complications, E78.00 - Pure hypercholesterolemia, unspecified, I10 - Essential (primary) hypertension, Z79.4 - senior living (current) use of insulin Microalbumin, Random (w Creat) Today E11.9 - Type 2 diabetes mellitus without complications, E78.00 - Pure hypercholesterolemia, unspecified, I10 - Essential (primary) hypertension, Z79.4 - exterminator termite (current) use of insulin Medications: Changed From insulin glargine (Lantus Solostar U-100 Insulin) 30 units (0.3 mL) subcut BEDTIME 30 days 9 mL 3RF To insulin glargine (Lantus Solostar U-100 Insulin) 20 units (0.2 mL) subcut BID 30 days 15 mL 3RF Coding Level of Care Code Est Pt Level 4 (69766) Complex EM visit Add On G2211 Diagnoses Controlled type 2 diabetes mellitus with insulin therapy E11.9; Z79.4 HTN (hypertension) I10 High cholesterol E78.00
[2024-09-15 10:23] LABS: Glucose, Whole Blood 137 mg/dL (60-115)
== END 2024-09-15 10:40 | disposition home or self-care (01) ==
PROVIDERS: Visit Provider Physician Assistant
DX: E11.9 Type 2 diabetes mellitus without complications (principal); Z79.4 Long term (current) use of insulin; I10 Essential (primary) hypertension; E78.00 Pure hypercholesterolemia, unspecified

== ENCOUNTER → 2024-09-15 09:56 | Outpatient (BNVA) | payer MEDICAID, SELFPAY | PROVIDERS: Visit Provider Physician Assistant | DX: E11.9 Type 2 diabetes mellitus without complications (principal); E78.00 Pure hypercholesterolemia, unspecified; I10 Essential (primary) hypertension; Z79.4 Long term (current) use of insulin | CPT/HCPCS: 82947; 99212 ==

== ENCOUNTER 2024-09-20 14:44 | Outpatient (AMB) | payer MEDICAID, SELFPAY ==
[2024-09-20 14:59] VITALS: PULSE 83; TEMP 37.2; O2SAT 98
--- NOTE | 2024-09-20 14:59 | A.OFFVIS_ITS ---
Vital Signs 09/20/24 14:59 Pulse 83 Pulse Source Pulse Oximeter Temp 99.0 F Temp Source Oral Pulse Oximetry (%) 98 Oxygen Delivery Method Room Air Intake Visit Reasons: follow up MRSA and doxy Allergies bee venom protein (honey bee) Allergy (Severe, Verified 09/20/24 15:00) Anaphylaxis erythromycin base Allergy (Intermediate, Verified 09/20/24 15:00) Rash Iodinated Contrast Media Adverse Reaction (Intermediate, Verified 09/20/24 15:00) Shortness of Breath HPI HPI follow up MRSA and doxy: Details: He has OM left great toe. He has no complaints [facility] Medical History Diabetes Osteomyelitis Sepsis History of opioid abuse Hx of hepatitis C Amputated toe Osteomyelitis of great toe of right foot Uncontrolled diabetes mellitus with hyperglycemia Osteomyelitis Asthma Cellulitis High cholesterol Kidney stones HTN (hypertension) Surgical History History of amputation of left foot through metatarsal bone History of right lower limb amputation History of lithotripsy Social History Household Members: Family Housing: House Do you presently have visiting nurse or other home services: Yes (VNA and PALLIATIVE MEDICINE PHYSICIAN) Patient Tobacco Use Status: Former Tobacco user Tobacco use type: Cigarette Second Hand Smoke Exposure: No Substance Use Type: Crack/Cocaine and Marijuana Advance Directives: No Advance Directives Information Provided: No Advance Directives Date on File: 07/12/24 service: No Current occupational status: unemployed Review of Systems Const All systems reviewed & are unremarkable except as noted in HPI and below Physical Exam Vital Signs: Last Vital Signs Temp 99.0 F 09/20/24 14:59 Pulse 83 09/20/24 14:59 Pulse Ox 98 09/20/24 14:59 Oxygen Delivery Method Room Air 09/20/24 14:59 Const General: cooperative Orientation/consciousness: patient oriented x3 HEENT Head: Yes normal to inspection Mouth: Normal oral and palatal mucosa present Eyes General: appearance normal, both eyes and all related structures Pupils: Equal, round and reactive pupils present Resp Effort & Inspection: normal respiratory effort Cardio Rate: regular rate Rhythm: regular rhythm GI Palpation (GI): Soft to palpation and nontender General: Yes no CVA tenderness Back/Spine/Pelvis Back: no CVA tenderness Skin General skin exam: no rashes or lesions noted Neuro General: patient oriented x3 Cranial nerves: Yes CN's II-XII intact bilaterally and Yes Equal, round and reactive pupils present Extrem General: Yes normal to inspection Psych Appearance: grossly normal Assessment & Plan Assessment & Plan (1) Osteomyelitis: Comment: some improvement Code(s): M86.9 - Osteomyelitis, unspecified Category: Medical Plan: Finish antibiotics per plan, Coding Level of Care Code Est Pt Level 3 (82890) Diagnoses Osteomyelitis M86.9
== END 2024-09-20 15:59 | disposition home or self-care (01) ==
PROVIDERS: Visit Provider Internal Medicine
DX: M86.9 Osteomyelitis, unspecified (principal)
CPT/HCPCS: 99213

== ENCOUNTER → 2024-09-20 14:44 | Outpatient (BNVA) | payer MEDICAID, SELFPAY | PROVIDERS: Visit Provider Internal Medicine | DX: M86.9 Osteomyelitis, unspecified (principal) | CPT/HCPCS: 99212 ==

== ENCOUNTER 2024-11-15 10:55 | Outpatient (REF) | payer MEDICAID, SELFPAY ==
[2024-11-15 11:11] LABS: MANUAL DIFF FLAG NO
[2024-11-15 12:03] LABS: Basophils Absolute Auto 0.1 X10*3/uL (0.0-0.2); Basophils Percent Auto 0.8 % (0-2); Eosinophils Absolute Auto 0.2 X10*3/uL (0.0-0.4); Eosinophils Percent Auto 1.7 % (0-4); Hematocrit 33.5 % (42.0-52.0); Hemoglobin 11.1 g/dl (14.0-18.0); Imm Gran Abs Auto 0.03 X10*3/uL (0.00-0.03); Imm Gran Pct Auto 0.3 % (0.0-0.4); Lymphocytes Absolute Auto 1.3 X10*3/uL (1.2-4.9); Lymphocytes Percent Auto 15.2 % (20-40); Mean Corpuscular HGB Conc 33.1 g/dl (31.0-36.0); Mean Corpuscular Volume 84.4 fL (80.0-98.0); Mean Platelet Volume 10.7 fL (9.4-12.4); Monocytes Absolute Auto 0.8 X10*3/uL (0.1-1.2); Neutrophils Absolute Auto 6.3 x10*3/uL (2.0-8.3); Platelet Count 239 X10*3/uL (160-400); Red Blood Count 3.97 X10*6/uL (4.60-5.80); Red Cell Distribution Width 13.7 % (11.0-16.0); White Blood Count 8.6 X10*3/uL (4.8-10.8)
[2024-11-15 12:43] LABS: Alanine Aminotransferase 10 U/L (0-40); Alkaline Phosphatase 93 U/L (39-117); Anion Gap 10 (12-20); Aspartate Amino Transferase 14 U/L (5-37); Bilirubin Total 0.3 mg/dL (0.0-1.0); Blood Urea Nitrogen 25 mg/dL (9-16); Calcium 8.9 mg/dL (8.4-10.2); Carbon Dioxide 27 mmol/L (22-29); Chloride 103 mmol/L (96-108); Estimated Glomerular Filt Rate > 60; Glucose Random 185 mg/dL (60-115); Iron 43 mcg/dL (45-160); Percent Iron Saturation 14 % (15-50); Sodium 135 mmol/L (135-145); Total Iron Binding Capacity 316 mcg/dL (228-428); Total Protein 7.9 g/dL (6.5-8.0); Unsaturated Iron Binding 273 ug/dL
--- OUTSIDE RECORDS SUMMARY | 2024-11-15 12:43 | XMS_ITS | Encounter Summary ---
Author Organization [employer] Address [address] [place] [address] [place] [address] Care Team Providers Care Health And Wellness Coordinator Name Role Phone Valery Berrios MD Primary Care Provider [phone] Vicenta Nielsen NP Primary Care Provider Encounter Details Date Type Department Care Team ([facility] st Contact Info) Description 10/30/[address] [facility] CHC MED & PEDS [address] [place] [address] Valery Berrios MD [address] [place] [address] Social History Tobacco Use Types Packs/Day Years Used Date Smoking Tobacco: Every Day Cigarettes Smokeless Tobacco: Never Depression Answer Date Recorded Patient Health Questionnaire-9 Score 0 10/20/2022 Depression Answer Date Recorded Patient Health Questionnaire-2 Score 0 10/20/2022 Sex and Gender Information Value Date Recorded Sex Assigned at Male 08/03/2022 10:17 AM EDT Legal Sex Male 10:17 AM EDT Gender Identity Male 08/03/2022 10:17 AM EDT Sexual Orientation Straight 08/03/2022 10 :17 AM EDT COVID-19 Exposure Response Date Recorded In the last 10 days, have yo u been in contact with someone who was confirmed or suspected to have Coronavirus/COVID-19? No / Unsure 10/20/2022 2:10 PM EST documented as of this encounter Plan of Treatment Not on file documented as of this encounter Visit Diagnoses Not on filedocumented in this encounter Additional Health Concerns Assessment Noted Time PHQ-9 Depression Total Score: 0 10/20/19 23 2:41 PM EST documented as of this encounter Care Teams Health And Wellness Coordinator Relationship Specialty Start Date End Date Valery Berrios MD [address] [place] [id number] PCP - General Internal Medicine 12/01/18 12/21/23 Vicenta Nielsen NP [address] [place] [phone] PCP - General Family Medicine 12/22/23 [employer] 04/29/24 abigail [email or web address] Drop Wire AlinerRoller Stainer 10/18/24 documented as of this encounter
--- OUTSIDE RECORDS SUMMARY | 2024-11-15 12:43 | XMS_ITS | Encounter Summary ---
Author Organization [facility] Address [address] [place] [address] Care Team Providers Care Skill Training Program Coordinator Name Role Phone Vicenta Nielsen Primary Care Provider [phone] Encounter Details Date Type Department Care Team Description 05/30/2024 Social Work [facility] Oncology Services [address] [place] [address] Claude Resendiz, [facility] Social History Tobacco Use Types Packs/Day Years Used Date Smoking Tobacco: Former Cigarettes Smokeless Tobacco: Never Alcohol Use Standard Drinks/Week Comments Yes 0 (1 standard drink = 0.6 oz pur e alcohol) Sex and Gender Information Value Date Recorded Sex Assigned at Male 12/29/2022 10:42 AM EDT Gender Identity Male 12/29/2022 10:42 AM EDT Sexual Orientation Not on file Job Start Date Occupation Industry Not on file Not on file Not on file documented as of this encounter Plan of Treatment Not on file documented as of this encounter Visit Diagnoses Not on filedocumented in this encounter Care Teams Skill Training Program Coordinator Relationship Specialty Start Date End Date Vicenta Nielsen [address] [place] [phone] PCP - General Family Medicine 05/26/24 documented as of this encounter
--- OUTSIDE RECORDS SUMMARY | 2024-11-15 12:43 | XMS_ITS | Encounter Summary ---
Author Organization [employer] Address [address] [place] [address] 7 [place] [address] Care Team Providers Care Aboriginal Community Council Member Name Role Phone Valery Berrios MD Primary Care Provider [phone] Vicenta Nielsen NP Primary Care Provider [phone] Reason for Visit * Reason Onset Date Comments medication 07/14/2023 Encounter Details Date Type Department Care Team ([facility] st Contact Info) Description 07/14/2023 Telephone [facility] CHC MED & PEDS [address] [place] [address] Valery Berrios MD [address] [place] [address] medication Social History Tobacco Use Types Packs/Day Years Used Date Smoking Tobacco: Every Day Cigarettes Smokeless Tobacco: Never Depression Answer Date Recorded Patient Health Questionnaire-9 Score 0 10/20/2022 Housing Stability Answer Date Recorded What is your housing situation today? I do not have housing (Staying with others, in a hotel, in a fdc, living outside on the street, on a beach, in a car, or in a park 07/12/[address] you li ve. Do you have problems with any of the following? Water leaks 07/12/2023 Food Insecurity Answer Date Recorded Within the past 12 months, y ou worried that your food would run out before you got money to buy more: Often true 07/12/2023 Within the past 12 months,th e food you bought just didn't last and you didn't have enough money to get more: Often true 06/2023 Transportation Answer Date Recorded In the past 12 months, has l ack of transportation kept you from medical appts, meetings, work or from getting things needed for daily living? No 07/12/2023 Utilities Answer Date Recorded In the past 12 months, has t he electric, gas, oil or water company threatened to shut off services in your home? No 07/12/2023 Depression Answer Date Recorded Patient Health Questionnaire-2 Score 0 10/20/2022 Sex and Gender Information Value Date Recorded Sex Assigned at Male 08/03/2022 10:17 AM EDT Legal Sex Male 10:17 AM EDT Gender Identity Male 08/03/2022 10:17 AM EDT Sexual Orientation Straight 08/03/2022 10 :17 AM EDT documented as of this encounter Miscellaneous Notes * Telephone Encounter - Lisbeth Muñoz RN - 07/15/2023 11:38 AM EDT Please see message below. Retrieved Endo note from [place]. Per note, plan is to reinitiate metformin 1000mg bid. Could consider adding and SGLT 2 inhibitor in the future. Will increase lantus to 65units at possibly 70 units to keep point care in a.m <180 ... Will send note to scan for PCP to review. * Telephone Encounter - Ying Cox - 07/14/2023 11:20 AM EDT Tc from pt stating search marketing specialist is requesting pt switch from 55 to 65 units on insulin glargine (Lantus) 100 UNIT/ML injection. documented in this encounter Plan of Treatment Not on file documented as of this encounter Visit Diagnoses Not on filedocumented in this encounter Additional Health Concerns Assessment Noted Time PHQ-9 Depression Total Score: 0 10/20/19 23 2:41 PM EST documented as of this encounter Care Teams Aboriginal Community Council Member Relationship Specialty Start Date End Date Valery Berrios MD [address] [place] [address] PCP - General Internal Medicine 12/01/18 12/21/23 Vicenta Nielsen NP [address] [place] [address] PCP - General Family Medicine 12/22/23 [employer] 04/29/24 abigail [email or web address] [employer] CadetSales Applications Engineer 10/18/24 documented as of this encounter
--- OUTSIDE RECORDS SUMMARY | 2024-11-15 12:43 | XMS_ITS | Encounter Summary ---
Author Organization [facility] Address [address] [place] [address] Care Team Providers Care Software Consultant Name Role Phone Vicenta Nielsen [employer] Primary Care Provider [phone] Encounter Details Date Type Department Care Team (Late st Contact Info) Description 08/07/2024 Lab Requisition [facility] - Main Lab [address] [facility] [place] [address] Mary Song PA [address] [address] Obesity, unspecified Social History Tobacco Use Types Packs/Day Years Used Date Smoking Tobacco: Former Smokeless Tobacco: Never Alcohol Use Standard Drinks/Week Comments Yes 0 (1 standard drink = 0.6 oz pur e alcohol) Sex and Gender Information Value Date Recorded Sex Assigned at Not on file Legal Sex Male 1:19 AM EST Gender Identity Not on file Sexual Orientation Not on file documented as of this encounter Plan of Treatment Not on file documented as of this encounter Procedures Procedure Name Priority Date/Time Associated Diagnosis Comments CBC WITH AUTO DIFFERENTIAL Routine 08/07/2024 12:00 AM EST Obesity, unspecified CBC AND DIFFERENTIAL Routine 08/07/2024 12:00 AM EST Obesity, unspecified CREATINE KINASE Routine 08/07/2024 12:00 AM EST Obesity, unspecified COMPREHENSIVE METABOLIC PANEL Routine 08/07/2024 12:00 AM EST Obesity, unspecified documented in this encounter Results * (ABNORMAL) CBC auto differential (08/07/2024 12:00 AM EST) [facility] WBC 5.4 4.8 - 10.8 K/mcL LAB HEMETOLOGY METHOD 08/07/2024 7:14 PM [facility] RBC 3.80(L) 4.50 - 5.50 M/mcL LAB HEMETOLOGY METHOD 08/07/2024 7:14 PM [facility] Hemoglobin 9.9(L) 13.5 - 17.5 g/dL LAB HEMETOLOGY METHOD 08/07/2024 7:14 PM [facility] Hematocrit 31.4(L) 42.0 - 54.0 % LAB HEMETOLOGY METHOD 08/07/2024 7:14 PM [facility] MCV 83.7 79.0 - 98.0 FL LAB HEMETOLOGY METHOD 08/07/2024 7:14 PM [facility] MCH 26.4(L) 27.0 - 32.0 pcg LAB HEMETOLOGY METHOD 08/07/2024 7:14 PM [facility] MCHC 31.5(L) 32.0 - 37.0 g/dL LAB HEMETOLOGY METHOD 08/07/2024 7:14 PM [facility] RDW 14.6 11.0 - 15.0 % LAB HEMETOLOGY METHOD 08/07/2024 7:14 PM [facility] Platelets 186 130 - 400 K/mcL LAB HEMETOLOGY METHOD 08/07/2024 7:14 PM [facility] MPV 12.0(H) 7.0 - 11.0 FL LAB HEMETOLOGY METHOD 08/07/2024 7:14 PM [facility] NRBC 0.0 <1.0 % LAB HEMETOLOGY METHOD 08/07/2024 7:14 PM [facility] NRBC Absolute 0.00 <0.10 K/mcL LAB HEMETOLOGY METHOD 08/07/2024 7:14 PM [facility] Neutrophils Relative 59.9 % LAB HEMETOLOGY METHOD 08/07/2024 7:14 PM [facility] Lymphocytes Relative 25.9 % LAB HEMETOLOGY METHOD 08/07/2024 7:14 PM [facility] Monocytes Relative 9.6 % LAB HEMETOLOGY METHOD 08/07/2024 7:14 PM [facility] Eosinophils Relative 3.5 % LAB HEMETOLOGY METHOD 08/07/2024 7:14 PM [facility] Basophils Relative 0.9 % LAB HEMETOLOGY METHOD 08/07/2024 7:14 PM [facility] Immature Granulocytes Relative 0.2 % LAB HEMETOLOGY METHOD 08/07/2024 7:14 PM [facility] Neutrophils Absolute 3.26 1.50 - 7.00 K/mcL LAB HEMETOLOGY METHOD 08/07/2024 7:14 PM [facility] Lymphocytes Absolute 1.41 1.00 - 5.00 K/mcL LAB HEMETOLOGY METHOD 08/07/2024 7:14 PM [facility] Monocytes Absolute 0.52 0.20 - 1.00 K/mcL LAB HEMETOLOGY METHOD 08/07/2024 7:14 PM [facility] Eosinophils Absolute 0.19 0.00 - 0.50 K/mcL LAB HEMETOLOGY METHOD 08/07/2024 7:14 PM [facility] Basophils Absolute 0.05 0.00 - 0.20 K/mcL LAB HEMETOLOGY METHOD 08/07/2024 7:14 PM [facility] Immature Granulocytes Absolute 0.01 0.00 - 0.03 K/mcL LAB HEMETOLOGY METHOD 08/07/2024 7:14 PM [facility] Blood Venous blood specimen / Unknown Venipuncture / Unknown 08/07/2024 08/07/2024 7:01 PM EST us Mary ROE LAB BLOOD ORDERABLES Final Result Performing Organization Address City/[facility]/ZIP Co de Phone Number [facility] [address] [place] [address], [place] [phone] * Creatine kinase (08/07/2024 12:00 AM EST) [facility] Total CK 48 22 - 269 unit/L LAB CHEMISTRY METHOD 08/07/2024 7:36 PM EST [facility] Blood Venous blood specimen / Unknown Venipuncture / Unknown 08/07/2024 08/07/2024 7:01 PM EST Mary ROE LAB BLOOD ORDERABLES Final Result Performing Organization Address City/[facility]/ZIP Co de Phone Number [facility] [address] [place] [address], [place] [phone] * (ABNORMAL) Comprehensive metabolic panel (08/07/2024 12:00 AM EST) [facility] Sodium 135 133 - 145 mmol/L LAB CHEMISTRY METHOD 08/30/2024 9:16 AM [facility] Potassium 4.6 3.5 - 5.5 mmol/L LAB CHEMISTRY METHOD 08/30/2024 9:16 AM EST [facility] Chloride 101 96 - 110 mmol/L LAB CHEMISTRY METHOD 08/30/2024 9:16 AM EST [facility] CO2 28 21 - 32 mmol/L LAB CHEMISTRY METHOD 08/30/2024 9:16 AM EST [facility] Anion Gap 6 3 - 11 LAB CHEMISTRY METHOD 08/30/2024 9:16 AM [facility] Glucose 252(H) 70 - 100 mg/dL LAB CHEMISTRY METHOD 08/30/2024 9:16 AM [facility] BUN 29(H) 5 - 25 mg/dL LAB CHEMISTRY METHOD 08/30/2024 9:16 AM [facility] Creatinine 1.00 0.70 - 1.30 mg/dL LAB CHEMISTRY METHOD 08/30/2024 9:16 AM [facility] eGFR 87 >=60 mL/min/1. 73m2 LAB CHEMISTRY METHOD 08/30/2024 9:16 AM [facility] Comment:Calculation based on the??Chronic Kidney Disease Epidemiology Collaboration (CKD-EPI) equation refit??without adjustment for race. BUN/Creatinine Ratio 29.0 LAB CHEMISTRY METHOD 08/30/2024 9:16 AM [facility] Calcium 9.5 8.5 - 10.5 mg/dL LAB CHEMISTRY METHOD 08/30/2024 9:16 AM [facility] AST (SGOT) 14 10 - 42 unit/L LAB CHEMISTRY METHOD 08/30/2024 9:16 AM [facility] ALT (SGPT) 22 10 - 60 unit/L LAB CHEMISTRY METHOD 08/30/2024 9:16 AM [facility] Alkaline Phosphatase 82 42 - 121 unit/L LAB CHEMISTRY METHOD 08/30/2024 9:16 AM [facility] Total Protein 7.4 6.0 - 8.0 g/dL LAB CHEMISTRY METHOD 08/30/2024 9:16 AM [facility] Albumin 3.7 3.2 - 5.0 g/dL LAB CHEMISTRY METHOD 08/30/2024 9:16 AM [facility] Total Bilirubin 0.2 0.0 - 1.4 mg/dL LAB CHEMISTRY METHOD 08/30/2024 9:16 AM [facility] Blood Venous blood specimen / Unknown Venipuncture / Unknown 08/07/2024 08/07/2024 7:01 PM EST us Mary Greco Jaworek PA LAB BLOOD ORDERABLES Edite d Result - Final [facility] [address] [place] [address], documented in this encounter Visit Diagnoses Diagnosis Obesity, unspecified documented in this encounter Care Teams Software Consultant Relationship Specialty Start Date End Date Vicenta Nielsen FNP [address] [place] [phone] PCP - General 05/26/24 documented as of this encounter
--- OUTSIDE RECORDS SUMMARY | 2024-11-15 12:43 | XMS_ITS | Encounter Summary ---
Author Organization [employer] Address [address] [place] [address] 7 [place] [address] Care Team Providers Care Traffic Signal Supervisor Maintenance Name Role Phone Valery Berrios MD Primary Care Provider [phone] Vicenta Nielsen NP Primary Care Provider [phone] Reason for Visit * Reason Onset Date Comments PT1 07/21/2023 Encounter Details Date Type Department Care Team ([facility] st Contact Info) Description 07/21/[address] [facility] CHC MED & PEDS [address] [place] [address] Valery Berrios MD 505 [place] [address] PT1 Social History Tobacco Use Types Packs/Day Years Used Date Smoking Tobacco: Every Day Cigarettes Smokeless Tobacco: Never Depression Answer Date Recorded Patient Health Questionnaire-9 Score 0 10/20/2022 Housing Stability Answer Date Recorded What is your housing situation today? I do not have housing (Staying with others, in a hotel, in a usp, living outside on the street, on a beach, in a car, or in a park 07/12/[address] you li ve. Do you have problems with any of the following? Water leaks 07/12/2023 Food Insecurity Answer Date Recorded Within the past 12 months, y ou worried that your food would run out before you got money to buy more: Often true 07/19/2023 Within the past 12 months,th e food you bought just didn't last and you didn't have enough money to get more: Often true Transportation Answer Date Recorded In the past 12 months, has l ack of transportation kept you from medical appts, meetings, work or from getting things needed for daily living? No 07/19/2023 Utilities Answer Date Recorded In the past 12 months, has t he electric, gas, oil or water company threatened to shut off services in your home? No 07/19/2023 Depression Answer Date Recorded Patient Health Questionnaire-2 Score 0 10/20/2022 Sex and Gender Information Value Date Recorded Sex Assigned at Male 08/03/2022 10:17 AM EDT Legal Sex Male 10:17 AM EDT Gender Identity Male 08/03/2022 10:17 AM EDT Sexual Orientation Straight 08/03/2022 10 :17 AM EDT documented as of this encounter Miscellaneous Notes * Telephone Encounter - Gabi Henson - 07/22/2023 2:03 PM EDT Patient has an active PT-1 for address. * Telephone Encounter - Gabby Muñoz - 07/21/2023 2:49 PM EDT See [facility] with ICP requesting PT1 for pt Date: 08/11 Time: 3:45 pm Visits: n/a Address: [address] [place] [address] Facility: [facility], Dr. Kimmy Vuong [facility] Chair: n/a Field Training Manager Needed: no Pick-up location confirmed: [address] [place] [address] documented in this encounter Plan of Treatment Not on file documented as of this encounter Visit Diagnoses Not on filedocumented in this encounter Additional Health Concerns Assessment Noted Time PHQ-9 Depression Total Score: 0 10/20/19 23 2:41 PM EST documented as of this encounter Care Teams Traffic Signal Supervisor Maintenance Relationship Specialty Start Date End Date Valery Berrios MD [address] [place] [address] PCP - General Internal Medicine 12/01/18 12/21/23 Vicenta Nielsen NP [address] [place] [address] PCP - General Family Medicine 12/22/23 [employer] 04/29/24 abigail [email or web address] Java Core DeveloperMapping Supervisor 10/18/24 documented as of this encounter
--- OUTSIDE RECORDS SUMMARY | 2024-11-15 12:43 | XMS_ITS | Encounter Summary ---
Author Organization [employer] Address [address] [place] [address] Care Team Providers Care Customer Service Representative Teller Name Role Phone Valery Berrios MD Primary Care Provider [phone] Vicenta Nielsen NP Primary Care Provider [phone] Reason for Visit * Reason Onset Date Comments Forms/questionnaires 09/17/2022 Encounter Details Date Type Department Care Team ([facility] st Contact Info) Description 09/17/2022 Telephone [facility] CHC MED & PEDS [address] [place] [address] Valery Berrios MD 505 [place] [address] Forms/questionnaires Social History Tobacco Use Types Packs/Day Years Used Date Smoking Tobacco: Never Assessed Sex and Gender Information Value Date Recorded Sex Assigned at Male 08/03/2022 10:17 AM EDT Legal Sex Male 10:17 AM EDT Gender Identity Male 08/03/2022 10:17 AM EDT Sexual Orientation Straight 08/03/2022 10 :17 AM EDT documented as of this encounter Miscellaneous Notes * Telephone Encounter - Polly Vasquez - 09/17/2022 2:45 PM EST Tc from pt checking status on his DTA forms . Pt would like a call back with information . documented in this encounter Plan of Treatment Not on file documented as of this encounter Visit Diagnoses Not on filedocumented in this encounter Care Teams Customer Service Representative Teller Relationship Specialty Start Date End Date Valery Berrios MD [address] [place] [address] PCP - General Internal Medicine 12/01/18 12/21/23 Vicenta Nielsen NP [address] [place] [address] PCP - General Family Medicine 12/22/23 [employer] 04/29/24 abigail [email or web address] Straight Cutter MachineGear Straightener 10/18/24 documented as of this encounter
--- OUTSIDE RECORDS SUMMARY | 2024-11-15 12:43 | XMS_ITS | Encounter Summary ---
Author Organization [employer] Address [address] [place] [address] 7 [place] [address] Care Team Providers Care Voice Intercept Technician Name Role Phone Valery Berrios MD Primary Care Provider [phone] Vicenta Nielsen NP Primary Care Provider [phone] Reason for Visit * Reason Onset Date Comments PT1 07/16/2023 Encounter Details Date Type Department Care Team ([facility] st Contact Info) Description 07/16/2023 Telephone [facility] CHC MED & PEDS [address] [place] [address] Valery Berrios MD [address] [place] [address] PT1 Social History Tobacco Use Types Packs/Day Years Used Date Smoking Tobacco: Every Day Cigarettes Smokeless Tobacco: Never Depression Answer Date Recorded Patient Health Questionnaire-9 Score 0 10/20/2022 Housing Stability Answer Date Recorded What is your housing situation today? I do not have housing (Staying with others, in a hotel, in a prison, living outside on the street, on a [...] * Telephone Encounter - Gabi Henson - 07/16/2023 3:44 PM EDT PT-1 submitted for patient. They will receive a letter of approval or denial in the mail. * Telephone Encounter - Ying Cox - 07/16/2023 10:42 AM EDT Tc from pt requesting PT1 transportation. Date: n/a Time: n/a Visits: n/a Address: [address] [place] [address] Facility: [facility] Chair: n/a Rubber Splicer Needed: no documented in this encounter Plan of Treatment Not on file documented as of this encounter Visit Diagnoses Not on filedocumented in this encounter Additional Health Concerns Assessment Noted Time PHQ-9 Depression Total Score: 0 10/20/19 23 2:41 PM EST documented as of this encounter Care Teams Voice Intercept Technician Relationship Specialty Start Date End Date Valery Berrios MD [address] [place] [address] PCP - General Internal Medicine 12/01/18 12/21/23 Vicenta Nielsen NP [address] [place] [address] PCP - General Family Medicine 12/22/23 [facility] Integral Ad Science 04/29/24 abigail [email or web address] Musical EngineerCrm Administrator 10/18/24 documented as of this encounter
--- OUTSIDE RECORDS SUMMARY | 2024-11-15 12:43 | XMS_ITS | Clinical Summary ---
Author Organization [facility] Address [address] [place] [address] Care Team Providers Care Sling Operator Name Role Phone Vicenta Nielsen Primary Care Provider [phone] Allergies Active Allergy Reactions Criticality Noted Date Comments Bee Venom 05/26/2024 Erythromycin 05/26/2024 Iodinated Contrast Media 05/26/2024 Medications No known medications Active Problems Problem Noted Date Diagnosed Date Pelvic lymphadenopathy 05/26/2024 Amputation of right lower extremity below knee 0 05/26/2024 Social History Tobacco Use Types Packs/Day Years [...] file Not on file Not on file Last Filed Vital Signs Vital Sign Reading Time Taken Comments Blood Pressure 121/61 05/26/2024 1:04 PM EDT Pulse 71 05/26/2024 1:04 PM EDT Temperature 36.6 ??C (97.9 ??F) 05/26/2024 1:04 PM ED T Respiratory Rate - - Oxygen Saturation 97% 05/26/2024 1:04 PM EDT Inhaled Oxygen Concentration - - Weight 107.7 kg (237 lb 6.4 oz) 05/26/2024 1:04 PM EDT Height - - Body Mass Index - - Plan of Treatment Health Maintenance Due Date Last Done Comments Hepatitis B Vaccines (1 of 3 - 3-dose series) 1965 Hepatitis C Screening 1965 Depression Screening 1977 Preventative Health Evaluation 1983 Colon Cancer Screening (Colonoscopy) 2010 COVID-19 Vaccine ( season) 2024 03/04/2021, 02/11/2021 Influenza Vaccine (#1) 2024 , 07/20/2022, 07/04/2019, Additional history exists DTap / Tdap / Td (2 - Td or Tdap) 07/04/2029 07/04/2019 Pneumococcal Vaccine Completed 06/28/2023, 02/26/20 17 Shingrix-Zoster Vaccine Completed 06/28/2023, 04/20 RSV Ped < 20 months Aged Out No longe r eligible based on patient's age to complete this topic Care Teams Sling Operator Relationship Specialty Start Date End Date Vicenta Nielsen [address] [place] [phone] PCP - General Family Medicine 05/26/24
--- OUTSIDE RECORDS SUMMARY | 2024-11-15 12:43 | XMS_ITS | Encounter Summary ---
Author Organization [employer] Address [address] [place] [address] 7 [place] [address] Care Team Providers Care Manager Clinical Research Name Role Phone Valery Berrios MD Primary Care Provider [phone] Vicenta Nielsen NP Primary Care Provider [phone] Reason for Visit * Reason Onset Date Comments Call Back Request 11/17/2023 Encounter Details Date Type Department Care Team (Late st Contact Info) Description 11/17/2023 Telephone [facility] MEDICINE [address] [place] [address] Valery Berrios MD [address] [place], [place] [id number] Call Back Request Social History Tobacco Use Types Packs/Day Years Used Date Smoking Tobacco: Every Day Cigarettes Passive Smoke Exposure: Current Smokeless Tobacco: Never Depression Answer Date Recorded Patient Health Questionnaire-9 Score 0 10/20/2022 Housing Stability Answer Date Recorded What is your housing situation today? I do not have housing (Staying with others, in a hotel, in a skilled nursing, living outside on the street, on a [...] encounter Miscellaneous Notes * Telephone Encounter - Lea Pate RN - 11/19/2023 10:41 AM EST Returned call to pt regarding message below. Pt informed of PCP recommendations. Pt stated he has no transportation to get here for Tuesdays appt and PT1 had been cancelled or and is unable to get here. Pt informed that we can schedule [facility] for Tuesdays appt as even if request for PT1 Is submitted, it still will take a few days to reinstate. Pt agrees to come in for Wednesday appt and will record BP's within the next few days to bring to appt for PCP review. Pt states having episode of home BP of 150/80 but at times can go up to 160-170/90-95. ED precautions reviewed and will evaluate pt on Wednesday to determine BP med for pt. Pt agrees with plan. * Telephone Encounter - Tiffany Comer RN - 11/18/2023 11:49 AM EST TC to pt- he states he needs refills for his Miralax- will queue to provider. Pt states he needs refills on his potassium and iron. According to [facility] pharmacy, they do not have this on file. Dr. Beauzile, is pt to be taking these 2 medications? If so he is in need of both sent to [facility] pharm. Pt also states he stopped taking the amlodipine because it made his legs swell, please DC in chart, he has been having high BP readings and will need something in replace of the amlodipine. Pt agrees to appt with PCP 11.23.23 10a. Pt also states he moved to [place] and would like to transfer his care there. TP request sent on 10.14.23. Will wait for pt appt 11.23.23 to see what current PCP requests for f/u and go from there. * Telephone Encounter - Elmer Sykes - 11/17/2023 3:31 PM EST Tc from pt requesting call back from nurses to go over medication. Please contact pt at [phone]. documented in this encounter Plan of Treatment Not on file documented as of this encounter Visit Diagnoses Not on filedocumented in this encounter Additional Health Concerns Assessment Noted Time PHQ-9 Depression Total Score: 0 10/20/19 23 2:41 PM EST documented as of this encounter Care Teams Manager Clinical Research Relationship Specialty Start Date End Date Valery Berrios MD [address] [place] [address] PCP - General Internal Medicine 12/01/18 12/21/23 Vicenta Nielsen NP [address] [place] [address] PCP - General Family Medicine 12/22/23 [employer] 04/29/24 abigail [email or web address] Setter Cold Rolling MachineStunt Performer 10/18/24 documented as of this encounter
--- OUTSIDE RECORDS SUMMARY | 2024-11-15 12:43 | XMS_ITS | Encounter Summary ---
Author Organization [employer] Address [address] [place] [address] 7 [place] [address] Care Team Providers Care Law Librarian Name Role Phone Vicenta Nielsen NP Primary Care Provider [phone] Reason for Visit * Reason Comments Med Refill Encounter Details Date Type Department Care Team ([facility] st Contact Info) Description 02/04/2024 Refill [facility] CHC MED & PEDS [address] [place] [address] Valery Berrios MD [address] [place] [address] Type 2 diabetes mellitus without complication, with long-term current use of insulin ([facility]) Social History Tobacco Use Types Packs/Day Years Used Date Smoking Tobacco: Former Cigarettes Passive Smoke Exposure: Current Smokeless Tobacco: Never Depression Answer Date Recorded Patient Health Questionnaire-9 Score 5 01/04/2024 Patient Health Questionnaire-9 Score 5 01/04/2024 Last PHQ-9: Questionnaire Data Not on file 0 01/04/2024 Housing Stability Answer Date Recorded What is your housing situation today? I have anne-marie miller 12/17/[address] you li ve. Do you have problems with any of the following? Mold;I am not sure 12/17/2023 Food Insecurity Answer Date Recorded Within the [...] from getting things needed for daily living? Yes, it has kept me from medical appointments or getting medications. 12/17/2023 Utilities Answer Date Recorded In the past 12 months, has t he electric, gas, oil or water company threatened to shut off services in your home? No 07/19/2023 Depression Answer Date Recorded Patient Health Questionnaire-2 Score 2 01/04/2024 Sex and Gender Information Value Date Recorded Sex Assigned at Male 08/03/2022 10:17 AM EDT Legal Sex Male 10:17 AM EDT Gender Identity Male 08/03/2022 10:17 AM EDT Sexual Orientation Straight 08/03/2022 10 :17 AM EDT documented as of this encounter Plan of Treatment Not on file documented as of this encounter Visit Diagnoses Diagnosis Type 2 diabetes mellitus without complication, with long-term current use of insulin ([facility]) documented in this encounter Additional Health Concerns Assessment Noted Time PHQ-9 Depression Total Score: 5 01/04/20 10:57 AM EDT documented as of this encounter Care Teams Law Librarian Relationship Specialty Start Date End Date Vicenta Nielsen NP [address] [place] [address] PCP - General Family Medicine 12/22/23 [employer] 04/29/24 abigail [email or web address] Academic Affairs ManagerShower Doors And Panels Fabricator 10/18/24 documented as of this encounter
--- OUTSIDE RECORDS SUMMARY | 2024-11-15 12:43 | XMS_ITS | Encounter Summary ---
Author Organization [employer] Address [address] [place] [address] 7 [place] [address] Care Team Providers Care Electric Installer Name Role Phone Valery Berrios MD Primary Care Provider [phone] Vicenta Nielsen NP Primary Care Provider [phone] Encounter Details Date Type Department Care Team ([facility] st Contact Info) Description 11/18/2023 Orders Only [facility] CHC MED & PEDS [address] [facility] [place] [address] Valery Berrios MD [address] [place] [address] Benign hypertension (Primary Dx) Social History Tobacco Use Types Packs/Day Years Used Date Smoking Tobacco: Every Day Cigarettes Passive Smoke Exposure: Current Smokeless Tobacco: Never Depression Answer Date Recorded Patient Health Questionnaire-9 Score 0 10/20/2022 Housing Stability Answer Date Recorded What is your housing situation today? I do not have housing (Staying with others, in a hotel, in a penitentiary, living outside on the street, on a [...] as of this encounter Plan of Treatment Scheduled Orders Name Type Priority Associated Diagnoses Orde r Schedule Basic Metabolic Panel Lab Routine Benign hypertension Expected: 02/20/2024 (Approximate), Expires: 11/18/2024 documented as of this encounter Procedures Procedure Name Priority Date/Time Associated Diagnosis Comments CBC WITH AUTO DIFFERENTIAL Routine 05/23/2024 11:38 AM EDT Benign hypertension documented in this encounter Results * (ABNORMAL) CBC auto differential (05/23/2024 11:38 AM EDT) White Blood Count 7.8 4.8 - 10.8 X10*3/uL [facility] Red Blood Count 3.54(L) 4.60 - 5.80 X10*6/uL [facility] Hemoglobin 9.5(L) 14.0 - 18.0 g/dl [facility] Hematocrit 29.7(L) 42.0 - 52.0 % [facility] Mean Corpuscular Volume 83.9 80.0 - 98.0 fL [facility] Mean Corpuscular Hemoglobin 26.8(L) 27.0 - 33.0 pg [facility] Mean Corpuscular HGB Conc 32.0 31.0 - 36.0 g/dl [facility] Red Cell Distribution Width 14.0 11.0 - 16.0 % [facility] Platelet Count 236 160 - 400 X10*3/uL [facility] Mean Platelet Volume 11.3 9.4 - 12.4 fL [facility] Neutrophils Percent Auto 75.3(H) 45 - 73 % [facility] Imm Gran Pct Auto 0.4 0.0 - 0.4 % [facility] Lymphocytes Percent Auto 12.9(L) 20 - 40 % [facility] Monocytes Percent Auto 9.7 2 - 11 % [facility] Eosinophils Percent Auto 1.2 0 - 4 % [facility] Basophils Percent Auto 0.5 0 - 2 % [facility] NRBC Pct Auto 0.0 0.0 - 0.2 /100WBC [facility] Neutrophils Absolute Auto 5.9 2.0 - 8.3 x10*3/uL [facility] Imm Gran Abs Auto 0.03 0.00 - 0.03 X10*3/uL [facility] Lymphocytes Absolute Auto 1.0(L) 1.2 - 4.9 X10*3/uL [facility] Monocytes Absolute Auto 0.8 0.1 - 1.2 X10*3/uL [facility] Eosinophils Absolute Auto 0.1 0.0 - 0.4 X10*3/uL [facility] Basophils Absolute Auto 0.0 0.0 - 0.2 X10*3/uL [facility] NRBC Abs Auto 0.000 0.0 - 0.012 X10*3/uL [facility] Blood Venous blood specimen / Unknown 05/23/2024 11:38 AM EDT 05/23/2024 1:31 PM EDT us Valery Berrios MD LAB BLOOD ORDERABLES Final Result [facility] [address] [place] [phone] documented in this encounter Visit Diagnoses Diagnosis Benign hypertension- Primary Essential hypertension, benign documented in this encounter Additional Health Concerns Assessment Noted Time PHQ-9 Depression Total Score: 0 10/20/19 23 2:41 PM EST documented as of this encounter Care Teams Electric Installer Relationship Specialty Start Date End Date Valery Berrios MD [address] [place] [address] PCP - General Internal Medicine 12/01/18 12/21/23 Vicenta Nielsen NP [address] [place] [address] PCP - General Family Medicine 12/22/23 [employer] 04/29/24 abigail [email or web address] Deliverer FoodCommercial Art Instructor 10/18/24 documented as of this encounter
--- OUTSIDE RECORDS SUMMARY | 2024-11-15 12:43 | XMS_ITS | Encounter Summary ---
Author Organization [employer] Address [address] [place] [address] 7 [place] [address] Care Team Providers Care Heel Gouger Name Role Phone Valery Berrios MD Primary Care Provider [phone] Vicenta Nielsen NP Primary Care Provider [phone] Reason for Visit * Reason Onset Date Comments Transfer Patient 09/13/2023 Encounter Details Date Type Department Care Team (Late st Contact Info) Description 09/13/2023 Telephone [facility] MEDICINE [address] [place] [address] Valery Berrios MD [address] [facility] [place] [phone] Transfer Patient Social History Tobacco Use Types Packs/Day Years Used Date Smoking Tobacco: Every Day Cigarettes Passive Smoke Exposure: Current Smokeless Tobacco: Never Depression Answer Date Recorded Patient Health Questionnaire-9 Score 0 10/20/2022 Housing Stability Answer Date Recorded What is your housing situation today? I do not have housing (Staying with others, in a hotel, in a senior care, living outside on the street, on a [...] encounter Miscellaneous Notes * Telephone Encounter - Gonzalez Burciaga - 10/13/2023 2:34 PM EST Tc from pt requesting status on TP Please contact pt @ [phone] * Telephone Encounter - Jone Kaufman - 09/13/2023 1:58 PM EST Tc from patient requesting to be transferred to the [facility] due to patient residing at [place] documented in this encounter Plan of Treatment Not on file documented as of this encounter Visit Diagnoses Not on filedocumented in this encounter Additional Health Concerns Assessment Noted Time PHQ-9 Depression Total Score: 0 10/20/19 23 2:41 PM EST documented as of this encounter Care Teams Heel Gouger Relationship Specialty Start Date End Date Valery Berrios MD [address] [place] [address] PCP - General Internal Medicine 12/01/18 12/21/23 Vicenta Nielsen NP [address] [place] [address] PCP - General Family Medicine 12/22/23 [employer] 04/29/24 abigail [email or web address] Associate Professor Of EnglishSuperintendent Container Terminal 10/18/24 documented as of this encounter
--- OUTSIDE RECORDS SUMMARY | 2024-11-15 12:43 | XMS_ITS | Encounter Summary ---
Author Organization [employer] Address [address] [place] [address] [address] [place] [address] Care Team Providers Care Electrical Mechanical Technician Name Role Phone Vicenta Nielsen NP Primary Care Provider [phone] Reason for Visit * Reason Onset Date Comments Call Back Request 03/10/2024 Encounter Details Date Type Department Care Team ([facility] st Contact Info) Description 03/10/2024 Telephone [facility] [address] [place] [address] Vicenta Nielsen NP [address] [place] [address] Call Back Request Social History Tobacco Use [...] encounter Miscellaneous Notes * Telephone Encounter - Kai Niño RN - 03/13/2024 4:47 PM EDT T/C to pt. To schedule tele. Apt. Pt. Schedule for tele. Apt. On Wednesday03/17/2024, pt. Verbally agreed and understood. * Telephone Encounter - Kai Niño RN - 03/13/2024 10:14 AM EDT T/C to pt. For below message. Pt. Is asking for tele. Apt. To go over lab from 01/03. Pt. Is in ED right now. Pt. Is asking for tele. Visit to go to go over lab. Pt. Advised to call once he discharge from ED to schedule a ED follow up apt. But pt. Is asking to schedule tele. Apt. Before that. Please review and advise. * Telephone Encounter - Gabby Muñoz - 03/10/2024 3:10 PM EDT Tc from pt requesting to speak with a nurse in regards to labs done on 01/03. Results scanned in chart. Please contact pt at [phone] documented in this encounter Plan of Treatment Not on file documented as of this encounter Visit Diagnoses Not on filedocumented in this encounter Additional Health Concerns Assessment Noted Time PHQ-9 Depression Total Score: 5 01/04/20 10:57 AM EDT documented as of this encounter Care Teams Electrical Mechanical Technician Relationship Specialty Start Date End Date Vicenta Nielsen NP [address] [place] [id number] PCP - General Family Medicine 12/22/23 [employer] 04/29/24 abigail mcneill Flavor MakerManager Lsw 10/18/24 documented as of this encounter
--- OUTSIDE RECORDS SUMMARY | 2024-11-15 12:44 | XMS_ITS | Encounter Summary ---
Author Organization [employer] Address [address] [place] [address] [address] [place] [address] Care Team Providers Care Java Groovy Developer Name Role Phone Vicenta Nielsen NP Primary Care Provider [phone] Reason for Visit * Reason Onset Date Comments Referral 10/24/2024 Encounter Details Date Type Department Care Team ([facility] st Contact Info) Description 10/24/2024 Telephone [facility] [address] [place] [address] Vicenta Nielsen NP [address] [place] [address] Referral Social History Tobacco Use Types Packs/Day Years Used Date Smoking Tobacco: Former Cigarettes Passive Smoke Exposure: Current Smokeless Tobacco: Never Alcohol Use Standard Drinks/Week Comments Never 0 (1 standard drink = 0.6 oz pur e alcohol) Depression Answer Date Recorded Patient Health Questionnaire-9 Score 7 07/25/2024 Patient Health Questionnaire-9 Score 7 07/25/2024 Last PHQ-9: Questionnaire Data Not on file 1 Housing Stability Answer Date Recorded What is [...] Answer Date Recorded Patient Health Questionnaire-2 Score 3 07/25/2024 Sex and Gender Information Value Date Recorded Sex Assigned at Male 08/03/2022 10:17 AM EDT Legal Sex Male 10:17 AM EDT Gender Identity Male 08/03/2022 10:17 AM EDT Sexual Orientation Straight 08/03/2022 10 :17 AM EDT documented as of this encounter Miscellaneous Notes * Telephone Encounter - Jeanette Castillo RN - 10/26/2024 10:14 AM EST TC placed to pt to inform a new referral was placed by the provider. Advised pt to call office withany questions or concerns. Pt verbalized understanding and denies any questions or concerns at thistime. * Telephone Encounter - Jeanette Castillo RN - 10/25/2024 4:02 PM EST TC placed to pt regarding referral request. Pt reports where he was referred does not work with prosthetic leg patients. Pt requesting referral for the [facility] as he believes they work with patients with prosthetics. Message forwarded to provider to review and advise. * Telephone Encounter - Rama Eller - 10/25/2024 3:55 PM EST Tc from pt returning call. * Telephone Encounter - Jeanette Castillo RN - 10/25/2024 3:16 PM EST TC placed to pt regarding referral request to [facility]. No answer, LVM to calloffice back and ask to speak to the blue team nurses. * Telephone Encounter - Michelle Kaufman - 10/24/2024 3:42 PM EST Patient would need a new referral due to it expiring on 10/30/2024. * Telephone Encounter - Elmer Sykes - 10/24/2024 3:14 PM EST TC from pt requesting new PT referral location: Address: [address] [place] [address] Facility Name: [facility] Type of Specialist: Physical Therapy documented in this encounter Plan of Treatment Not on file documented as of this encounter Visit Diagnoses Not on filedocumented in this encounter Additional Health Concerns Assessment Noted Time PHQ-9 Depression Total Score: 7 07/25/20 24 9:24 AM EDT documented as of this encounter Care Teams Java Groovy Developer Relationship Specialty Start Date End Date Vicenta Nielsen NP [address] [place] [id number] PCP - General Family Medicine 12/22/23 [email or web address] 04/29/24 abigail mcneill [employer] Diver[employer] Maintenance Manager 10/18/24 documented as of this encounter
--- OUTSIDE RECORDS SUMMARY | 2024-11-15 12:44 | XMS_ITS | Encounter Summary ---
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, unspecified vessel or lesion type ([facility]) Vicenta Nielsen NP [address] [place] [address] Phone: tel: fax: [address] Phone: tel: fax: Referral ID Status Reason Start Date Expiration Date Visits Requested Visits Authorized [id number] Authorized Specialty Services Required 11/10/2024 11/10/2025 6 6 * Consultation (Routine) - Closed Specialty Diagnoses / Procedures Referred By Contac t Referred To Contact Physical Therapy Diagnoses Below-knee amputation of right lower extremity, initial encounter ([facility]) Vicenta Nielsen NP [address] [place] [address] Phone: tel: fax: Physical Therapy, AT [address] [place] Phone: tel: fax: Referral ID Status Reason Start Date Expiration Date V isits Requested Visits Authorized [id number] Closed Specialty Services Required 11/10/2024 11/10/2025 20 20 Scheduling Instructions [facility] * Imaging (Routine) - Authorized Specialty Diagnoses / Procedures Referred By Contac t Referred To Contact Radiology Diagnoses Left flank pain Procedures US RENAL BI Vicenta Nielsen NP [address] [place] [address] Phone: tel: fax: [address] Phone: tel: fax: Referral ID Status Reason Start Date Expiration Date V isits Requested Visits Authorized [id number] Authorized 11/10/2024 11/10/2025 1 1 Reason for Visit * Reason Comments Follow-up Encounter Details Date Type Department Care Team (Late st Contact Info) Description 11/10/2024 1:45 PM EST Office Visit [facility] [address] [place] [address] Vicenta Nielsen NP [address] [place] [address] Hypertension, unspecified type (Primary Dx); Type 2 diabetes mellitus with hyperglycemia, with long-term current use of insulin ([facility]); Left flank pain; Below-knee amputation of right lower extremity, initial encounter ([facility]); Peripheral vascular disease ([facility]); 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, unspecified vessel or lesion type ([facility]); Iron deficiency anemia due to chronic blood loss; Palpitations; Essential (primary) hypertension; Type 2 diabetes mellitus with other circulatory complication, with long-term current use of insulin ([facility]); History of opioid abuse ([facility]) Social History Tobacco Use Types Packs/Day Years [...] AM EDT documented as of this encounter Last Filed Vital Signs Vital Sign Reading Time Taken Comments Blood Pressure 150/72 11/10/2024 2:08 PM EST Pulse 80 11/10/2024 2:08 PM EST Temperature 36.7 ??C (98.1 ??F) 11/10/2024 2:08 PM ES T Respiratory Rate 20 11/10/2024 2:08 PM EST Oxygen Saturation 98% 11/10/2024 2:08 PM EST Inhaled Oxygen Concentration - - Weight 120 kg (265 lb) 11/10/2024 2:08 PM EST Height 175.3 cm (5' 9 ) 11/10/2024 2:08 PM EST Body Mass Index 39.13 11/10/2024 2:08 PM EST documented in this encounter Progress Notes * Vicenta Nielsen NP - 11/10/2024 1:45 PM EST Subjective Bam Wise is a 59 y.o. male who presents to the office for follow up visit - chronic conditions. Interim history: Has daily home nursing, left lower extremity edematous, weeping at times, no pain or redness, in care with wound team Increased wt gain, bp above goal, intermittent palpitations, has not seen cardiology recently Requesting physical therapy referrals Tapering methadone out patient Sugars have been somewhat elevated, no lows Bp above goal, despite lisinopril 30 mg, no chest pain or pressure, intermittent palpitations whichpt attributes to fluctuations in sugars, Did have negative sleep study Bp- was taken off verapamil due to possibility of lower extremity edema Left flank pain, hx of stones , no hematuria, possibly muscular as it feels like a deep pain, exacerbated by movement, no dysuria or urgency Wondering about ampushield And hands free I walk 3.0 Wt Readings from Last 3 Encounters: 11/10/24 265 lb (120 kg) 09/29/24 246 lb (112 kg) 08/21/24 246 lb 3.2 oz (112 kg) Patient Active Problem List Diagnosis Chronic type B viral hepatitis ([facility]) Asthma Benign hypertension Opioid dependence ([facility]) Osteomyelitis ([facility]) Sepsis ([facility]) Cellulitis UTI (urinary tract infection) Anemia COPD mixed type ([facility]) Dyspnea on exertion Right elbow pain Wound infection after surgery Amputation of right lower extremity below knee ([facility]) Pelvic lymphadenopathy Hyperkalemia Acute blood loss anemia Dyslipidemia History of endocarditis History of opioid abuse ([facility]) Osteomyelitis of right foot ([facility]) Type 2 diabetes mellitus with hyperglycemia, with long-term current use of insulin ([facility]) Dysuria Hypertension Dietary counseling Exercise counseling Anxiety Panic attacks Essential (primary) hypertension Long-term current use of methadone for opiate dependence ([facility]) Osteomyelitis of toe (CMS/HCC) DM2 (diabetes mellitus, type 2) ([facility]) Chronic antibiotic suppression Pain of right hip Left flank pain Peripheral vascular disease ([facility]) Coronary artery disease involving igiugig heart Review of Systems Constitutional: Positive for appetite change and unexpected weight change. Negative for activity change, chills, diaphoresis and fatigue. Respiratory: Negative for cough and wheezing. Cardiovascular: Positive for palpitations and leg swelling. Negative for chest pain. Gastrointestinal: Negative for constipation and nausea. Genitourinary: Positive for flank pain. Negative for enuresis, hematuria and urgency. Musculoskeletal: Positive for arthralgias and gait problem. Objective Visit Vitals BP (!) 150/72 (BP Location: Right arm, Patient Position: Sitting, BP Cuff Size: Large adult) Pulse 80 Temp 98.1 ??F (36.7 ??C) (Oral) Resp 20 Ht 5' 9 (1.753 m) Wt 265 lb (120 kg) SpO2 98% BMI 39.13 kg/m?? Smoking Status Former BSA 2.42 m?? Physical Exam Vitals reviewed. Constitutional: General: He is not in acute distress. Appearance: Normal appearance. He is obese. He is ill-appearing. HENT: Head: Normocephalic. Cardiovascular: Rate and Rhythm: Normal rate. Heart sounds: Normal heart sounds. Pulmonary: Breath sounds: Normal breath sounds. Abdominal: Palpations: Abdomen is soft. Tenderness: There is no rebound. Comments: Generalized left sided tenderness, no focal cva tenderness Musculoskeletal: Cervical back: Neck supple. Left lower leg: Edema present. Comments: Right leg bkamputation Neurological: Mental Status: He is alert. Psychiatric: Mood and Affect: Mood normal. Assessment/Plan Problem List Items Addressed This Visit Anemia Current Assessment & Plan Cbc ordered Relevant Orders Iron And Total Iron Binding Capacity Amputation of right lower extremity below knee ([facility]) Current Assessment & Plan Referral to pt for bilateral hip pain Relevant Orders Referral to Physical Therapy History of opioid abuse ([facility]) Overview Last Assessment & Plan: Home medications: methadone 110 mg daily QTc 455 and 454 on EKGs performed during admission. Patient seen by addiction psych SW this admission. -Continue home methadone 110 mg daily -Patient expresses desire to wean off methadone; defer to methadone clinic on discharge Current Assessment & Plan Tapering methadone out patient, tolerating Type 2 diabetes mellitus with hyperglycemia, with long-term current use of insulin ([facility]) Overview Last Assessment & Plan: Medications: Lantus 30 units nightly, insulin sliding scale HgA1c from 03/22/2024 is 6.0%. Overall, patient's FSBS over the past 72 hours have been <225. -Cardiac diabetic diet -Lantus 30 units nightly -Continue with medium dose sliding scale with 3x daily meals and low-dose ISS nightly Relevant Orders POCT Glucose (Completed) POCT HGB A1C (Completed) Comprehensive Metabolic Panel CBC auto differential Hypertension - Primary Relevant Medications olmesartan-hydroCHLOROthiazide (Benicar HCT) 40-25 MG tablet Other Relevant Orders Iron And Total Iron Binding Capacity Essential (primary) hypertension Overview Last Assessment & Plan: Home meds: lisinopril-hydrochlorothiazide 20-12.5 mg daily Verapamil 40 mg q12 hour SBP has been controlled throughout this hospitalization thus far on verapamil alone. -Continue to hold lisinopril and hydrochlorothiazide at this time, consider restarting in future ifBP consistently elevated. -Continue Verapamil 40 mg q12 hour with holding parameters Current Assessment & Plan Above goal on lisinopril 30 mg, Has home bp cuff continue measurement Medication adjusted Pt endorsed lle edema, and intermittent palpitations, referral to cardiology Bmp ordered DM2 (diabetes mellitus, type 2) ([facility]) Current Assessment & Plan Continue current regimen Relevant Orders POCT Glucose (Completed) POCT HGB A1C (Completed) Comprehensive Metabolic Panel CBC auto differential Left flank pain Current Assessment & Plan Ddx includes msk pain, no hematuria, ultrasound ordered due to hx of renal calculi Relevant Orders US RENAL BI Peripheral vascular disease ([facility]) Coronary artery disease involving igiugig heart Relevant Orders Referral to Cardiology Comprehensive Metabolic Panel CBC auto differential Iron And Total Iron Binding Capacity Other Visit Diagnoses Palpitations Relevant Orders TSH W/Reflex to FT4 Current Outpatient Medications Medication Sig Dispense Refill acetaminophen (Tylenol) 325 MG tablet TAKE TWO TABLETS BY MOUTH EVERY FOUR HOURS NEEDED FOR MILDPAIN atorvastatin (Lipitor) 20 MG tablet Take 1 tablet (20 mg) by mouth at bedtime. 90 tablet 3 Blood Glucose Monitoring Suppl ([employer] [place] Lite) w/Device kit TEST BLOOD SUGAR FOUR TIMES DAILY Blood Pressure Monitoring (Blood Pressure Cuff) misc Use daily as prescribed 1 each 0 Continuous Blood Gluc Engine Lathe Set Up Operator (Data MaidStyle Oumar 2 Anna) device USE DIRECTED EVERY DAY Continuous Blood Gluc Sensor (FreeStyle Oumar 2 Sensor) [facility] [place] USE DIRECTED TO TEST BLOOD SUGAR. CHANGE EVERY 14 DAYS . 2 each 11 Diclofenac Sodium 1 % gel To apply to the affected areas 3 times a day 100 g 1 FREESTYLE LITE test strip USE DIRECTED TO TEST BLOOD SUGAR FOUR TIMES DAILY 100 strip 4 insulin glargine (Lantus SoloStar) 100 UNIT/ML pen Inject 20 Units under the skin 2 times daily. 15mL 3 insulin lispro (HumaLOG) 100 UNIT/ML injection 2-17 units subcutaneous with meals and snacks 15 mL 11 insulin pen needle (Novofine Pen Needle) 32G x 6 mm misc USE 5 TO 6 TIMES DAILY DIRECTED 150 each 11 ipratropium-albuterol (Combivent Respimat) 20-100 MCG/ACT inhaler Inhale 1 puff if needed in the morning, at noon, in the evening, and at bedtime for wheezing. 4 g 2 Lactobacillus Probiotic tablet Take 1 tablet by mouth 3 times daily. 90 tablet 2 METHADONE HCL PO Take 115 mg by mouth in the morning. Multiple Vitamin (Multivitamin) tablet Take 1 tablet by mouth in the morning. Nutritional Supplements (Yared) powder 1 packet to dilute in 8 oz of water 2 times a day 545 g 3 olmesartan-hydroCHLOROthiazide (Benicar HCT) 40-25 MG tablet Take 1 tablet by mouth Once per day. 90 tablet 1 polyethylene glycol, PEG, 3350 (Glycolax) 17 GM/SCOOP powder MIX 17G (1 CAPFUL) IN 8 OUNCES OF WATER, COFFEE, OR TEA AND TAKE BY MOUTH EVERY DAY FOR 3 DAYS 510 g 1 TRUEplus Lancets 33G [facility] [place] TEST BLOOD SUGAR FOUR TIMES DAILY 100 each 11 No current facility-administered medications for this visit. documented in this encounter Miscellaneous Notes * Assessment & Plan Note - Vicenta Nielsen NP - 11/12/2024 7:18 PM ESTAssociated Problem(s): History of opioid abuse ([facility]) Tapering methadone out patient, tolerating * Assessment & Plan Note - Vicenta Nielsen NP - 11/12/2024 7:17 PM ESTAssociated Problem(s): Anemia Cbc ordered * Assessment & Plan Note - Vicenta Nielsen NP - 11/12/2024 7:17 PM ESTAssociated Problem(s): DM2 (diabetes mellitus, type 2) ([facility]) Continue current regimen * Assessment & Plan Note - Vicenta Nielsen NP - 11/12/2024 7:17 PM ESTAssociated Problem(s): Amputation of right lower extremity below knee ([facility]) Referral to pt for bilateral hip pain * Assessment & Plan Note - Vicenta Nielsen NP - 11/12/2024 7:16 PM ESTAssociated Problem(s): Essential (primary) hypertension Above goal on lisinopril 30 mg, Has home bp cuff continue measurement Medication adjusted Pt endorsed lle edema, and intermittent palpitations, referral to cardiology Bmp ordered * Assessment & Plan Note - Vicenta Nielsen NP - 11/12/2024 7:16 PM ESTAssociated Problem(s): Left flank pain Ddx includes msk pain, no hematuria, ultrasound ordered due to hx of renal calculi documented in this encounter Plan of Treatment Scheduled Orders Name Type Priority Associated Diagnoses Orde r Schedule US RENAL BI Imaging Routine Left flank pain Expected: 11/10/2024, Expires: 11/10/2025 Comprehensive Metabolic Panel Lab Routine Type 2 diabetes mellitus with hyperglycemia, with long-term current use of insulin ([facility]) 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, unspecified vessel or lesion type ([facility]/HCC) Expected: 11/24/2024 (Approximate), Expires: 11/10/2025 Iron And Total Iron Binding Capacity Lab Routine Hypertension, unspecified type 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, unspecified vessel or lesion type (CMS/HCC) Iron deficiency anemia due to chronic blood loss Expected: 11/10/2024, Expires: 11/10/2025 TSH W/Reflex to FT4 Lab Routine Palpitations Expected: 11/10/2024 (Approximate), Expires: 11/10/2025 Scheduled Referrals Name Type Priority Associated Diagnoses Orde r Schedule Referral to Physical Therapy Outpatient Referral Routine Below-knee amputation of right lower extremity, initial encounter ([facility]) Expected: 11/10/2024 (Approximate), Expires: 11/10/2025 Referral to Cardiology Outpatient Referral Routine 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, unspecified vessel or lesion type ([facility]) Expected: 11/10/2024 (Approximate), Expires: 11/10/2025 documented as of this encounter Procedures Procedure Name Priority Date/Time Associated Diagnosis Comments CBC WITH AUTO DIFFERENTIAL Routine 11/15/2024 11:01 AM EST Type 2 diabetes mellitus with hyperglycemia, with long-term current use of insulin ([facility]) 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, unspecified vessel or lesion type ([facility]) POCT GLYCATED HEMOGLOBIN, TOTAL Routine 11/10/2024 2:12 PM EST Type 2 diabetes mellitus with hyperglycemia, with long-term current use of insulin ([facility]) POCT GLUCOSE Routine 11/10/2024 2:10 PM EST Type 2 diabetes mellitus with hyperglycemia, with long-term current use of insulin ([facility]) documented in this encounter Results * (ABNORMAL) CBC auto differential (11/15/2024 11:01 AM EST) Pathologist [facility] White Blood Count 8.6 4.8 - 10.8 X10*3/uL [facility] Red Blood Count 3.97(L) 4.60 - 5.80 X10*6/uL [facility] Hemoglobin 11.1(L) 14.0 - 18.0 g/dl [facility] Hematocrit 33.5(L) 42.0 - 52.0 % [facility] Mean Corpuscular Volume 84.4 80.0 - 98.0 fL [facility] Mean Corpuscular Hemoglobin 28.0 27.0 - 33.0 pg [facility] Mean Corpuscular HGB Conc 33.1 31.0 - 36.0 g/dl [facility] Red Cell Distribution Width 13.7 11.0 - 16.0 % [facility] Platelet Count 239 160 - 400 X10*3/uL [facility] Mean Platelet Volume 10.7 9.4 - 12.4 fL [facility] Neutrophils Percent Auto 73.0 45 - 73 % [facility] Imm Gran Pct Auto 0.3 0.0 - 0.4 % [facility] Lymphocytes Percent Auto 15.2(L) 20 - 40 % [facility] Monocytes Percent Auto 9.0 2 - 11 % [facility] Eosinophils Percent Auto 1.7 0 - 4 % [facility] Basophils Percent Auto 0.8 0 - 2 % [facility] NRBC Pct Auto 0.0 0.0 - 0.2 /100WBC [facility] Neutrophils Absolute Auto 6.3 2.0 - 8.3 x10*3/uL [facility] Imm Gran Abs Auto 0.03 0.00 - 0.03 X10*3/uL [facility] Lymphocytes Absolute Auto 1.3 1.2 - 4.9 X10*3/uL [facility] Monocytes Absolute Auto 0.8 0.1 - 1.2 X10*3/uL [facility] Eosinophils Absolute Auto 0.2 0.0 - 0.4 X10*3/uL [facility] Basophils Absolute Auto 0.1 0.0 - 0.2 X10*3/uL [facility] NRBC Abs Auto 0.000 0.0 - 0.012 X10*3/uL [facility] Blood Venous blood specimen / Unknown 11/15/2024 11:01 AM EST 11/15/2024 11:10 AM EST Vicenta Nielsen NP LAB BLOOD ORDERABLES Final Resul t [facility] [address] [place] [phone] * (ABNORMAL) POCT HGB A1C (11/10/2024 2:12 PM EST) Hemoglobin A1C 7.0(A) 4.0 - 6.0 % [employer] Lot # [id number] Lot# Expiration Date Blood 11/10/2024 2:12 PM EST Result [facility] Vicenta Nielsen NP POINT OF CARE TEST ENTER/EDIT OR DERABLES Final Result * POCT Glucose (11/10/2024 2:10 PM EST) Glucose Blood, POC 170 60 - 200 mg/dL [employer] Lot # [id number] Lot# Expiration Date [id number] Blood Capillary blood specimen / Unknown 11/10/2024 2:10 PM EST Result [facility] Vicenta Nielsen NP POINT OF CARE TEST ENTER/EDIT OR DERABLES Final Result documented in this encounter Visit Diagnoses Diagnosis Hypertension, unspecified type- Primary Type 2 diabetes mellitus with hyperglycemia, with long-term current use of insulin ([facility]) Left flank pain Abdominal pain, unspecified site Below-knee amputation of right lower extremity, initial encounter ([facility]) Peripheral vascular disease ([facility]) Unspecified peripheral vascular disease 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, unspecified vessel or lesion type ([facility]) Iron deficiency anemia due to chronic blood loss Iron deficiency anemia secondary to blood loss (chronic) Palpitations Essential (primary) hypertension Unspecified essential hypertension Type 2 diabetes mellitus with other circulatory complication, with long-term current use of insulin ([facility]) History of opioid abuse ([facility]) documented in this encounter Additional Health Concerns Assessment Noted Time PHQ-9 Depression Total Score: 7 07/25/20 24 9:24 AM EDT documented as of this encounter Care Teams Inweaver Relationship Specialty Start Date End Date Vicenta Nielsen NP [address] [place] [address] PCP - General Family Medicine 12/22/23 [employer] 04/29/24 abigail mcneill Mental Health OrderlyCircular Knitter 10/18/24 documented as of this encounter
--- OUTSIDE RECORDS SUMMARY | 2024-11-15 12:44 | XMS_ITS | Encounter Summary ---
Author Organization [employer] Address [address] [place] [address] 7 [place] [address] Care Team Providers Care Tester Rocket Engine Name Role Phone Vicenta Nielsen NP Primary Care Provider [phone] Reason for Referral * Consultation (Routine) - Closed Specialty Diagnoses / Procedures Referred By Contac t Referred To Contact Physical Therapy Diagnoses Pain of right hip Kimberly Bloom NP [address] [place] [address] Phone: tel: fax: On License Of [facility] [address] Phone: tel: fax: Referral ID Status Reason Start Date Expiration Date V isits Requested Visits Authorized [id number] Closed Specialty Services Required 10/26/2024 10/26/2025 20 20 Encounter Details Date Type Department Care Team (Late st Contact Info) Description 10/26/2024 Orders Only [facility] [address] [place], [place] [phone] Kimberly Bloom NP [address] [place], [place] [phone] Pain of right hip (Primary Dx) Social History Tobacco Use Types [...] of this encounter Plan of Treatment Scheduled Referrals Name Type Priority Associated Diagnoses Orde r Schedule Referral to Physical Therapy Outpatient Referral Routine Pain of right hip Expected: 10/26/2024 (Approximate), Expires: 10/26/2025 documented as of this encounter Visit Diagnoses Diagnosis Pain of right hip- Primary documented in this encounter Additional Health Concerns Assessment Noted Time PHQ-9 Depression Total Score: 7 07/25/20 24 9:24 AM EDT documented as of this encounter Care Teams Tester [employer]ocket Engine Relationship Specialty Start Date End Date Vicenta Nielsen NP [address] [place] [address] PCP - General Family Medicine 12/22/23 [employer] 04/29/24 abigail mcneill Auto Body Repair TeacherHand Button Splitter 10/18/24 documented as of this encounter
--- OUTSIDE RECORDS SUMMARY | 2024-11-15 12:44 | XMS_ITS | Encounter Summary ---
Author Organization [employer] Address [address] [facility] [address] [place] [address] Care Team Providers Care Residential Green Building Designer Name Role Phone Valery Berrios MD Primary Care Provider [phone] Vicenta Nielsen NP Primary Care Provider [phone] Encounter Details Date Type Department Care Team (Late st Contact Info) Description 03/24/2023 Abstract [facility] [address] [place] [address] Valery Berrios MD [address] [facility] [place] [id number] Social History Tobacco Use Types Packs/Day Years [...] suspected to have Coronavirus/COVID-19? No / Unsure 02/26/2023 1:17 PM EDT documented as of this encounter Plan of Treatment Not on file documented as of this encounter Visit Diagnoses Not on filedocumented in this encounter Additional Health Concerns Assessment Noted Time PHQ-9 Depression Total Score: 0 10/20/19 23 2:41 PM EST documented as of this encounter Care Teams Residential Green Building Designer Relationship Specialty Start Date End Date Valery Berrios MD [address] [place] [address] PCP - General Internal Medicine 12/01/18 12/21/23 Vicenta Nielsen NP [address] [place] [address] PCP - General Family Medicine 12/22/23 [employer] 04/29/24 abigail mcneill [employer] CounselorsBatcher Operator 10/18/24 documented as of this encounter
--- OUTSIDE RECORDS SUMMARY | 2024-11-15 12:44 | XMS_ITS | Encounter Summary ---
Author Organization [employer] Address [address] [place] [address] 7 [place] [address] Care Team Providers Care Can Marker Name Role Phone Vicenta Nielsen NP Primary Care Provider [phone] Reason for Visit * Reason Onset Date Comments FYI 10/12/2024 Encounter Details Date Type Department Care Team ([facility] st Contact Info) Description 10/12/2024 Telephone [facility] MEDICINE [address] [place] [address] Vicenta Nielsen NP [address] [place] [address] FYI Social History Tobacco Use Types Packs/Day Years [...] encounter Miscellaneous Notes * Telephone Encounter - Rama Eller - 10/12/2024 10:24 AM EST Tc from pt stating need a form be signed by pcp that explain why he need a leg rest in wheelchair. Call was disconnected if pt callback should be transferred to the med record.. documented in this encounter Plan of Treatment Not on file documented as of this encounter Visit Diagnoses Not on filedocumented in this encounter Additional Health Concerns Assessment Noted Time PHQ-9 Depression Total Score: 7 07/25/20 9:24 AM EDT documented as of this encounter Care Teams Can Marker Relationship Specialty Start Date End Date Vicenta Nielsen NP [address] [place] [phone] PCP - General Family Medicine 12/22/23 [employer] 04/29/24 abigail mcneill Hosiery LooperDirector [employer] Museum 10/18/24 documented as of this encounter
--- OUTSIDE RECORDS SUMMARY | 2024-11-15 12:44 | XMS_ITS | Clinical Summary ---
Author Organization [address] [facility] Address [address] [place] [address] Phone Care Team Providers Care Content Strategist Name Role Phone Vicenta Nielsen RAZ Primary Care Provider [phone] Encounters Date Type Department Care Team Description 08/30/2024 Lab Requisition [facility] Lab [address] [place] [phone] Mary Song PA Cellulitis, unspecified 08/21/2024 Lab Requisition [facility] Lab [address] [place] [phone] Steven Naik MD Cellulitis, unspecified from Last 3 Months Immunizations Name Administration Dates Next Due Pfizer SARS-CoV-2 COVID-19, mRNA, LNP-S, preservative free 03/04/2021,02/11/2021 Surgical History Surgery Date Site/Laterality Comments OTHER SURGICAL HISTORY PROCEDURE:KIDNEY STENT LEG AMPUTATION Right PROCEDURE:BELOW KNEE LEG AMPUTATION Medical History Medical History Date Comments Diabetes mellitus ([facility]) DX:D iabetes mellitus ([facility]) Hypertension DX:Hypertension Social History Tobacco Use Types Packs/Day Years Used Date Smoking Tobacco: Former Smokeless Tobacco: Never Alcohol Use Standard Drinks/Week Comments Yes 0 (1 standard drink = 0.6 oz pur e alcohol) Sex and Gender Information Value Date Recorded Sex Assigned at Not on file Legal Sex Male 1:19 AM EST Gender Identity Not on file Sexual Orientation Not on file Obstetrics History Last Filed Vital Signs Vital Sign Reading Time Taken Comments Blood Pressure 121/61 05/26/2024 1:04 PM EDT Sitting Right arm Pulse 71 05/26/2024 1:04 PM EDT Temperature - - Respiratory Rate - - Oxygen Saturation - - Inhaled Oxygen Concentration - - Weight 108 kg (237 lb 6.4 oz) 05/26/2024 1:04 PM EDT Height 175.3 cm (5' 9 ) 01/11/2024 1:24 PM EDT Body Mass Index 35.06 01/11/2024 1:24 PM EDT Plan of Treatment Health Maintenance Due Date Last Done Comments DTaP,Tdap,and Td Vaccines (1 - Tdap) 1984 Hepatitis B Vaccines (1 of 3 - 19+ 3-dose series) 1984 Pneumococcal Vaccine: 50+ Years (1 of 2 - PCV) 1984 Pneumococcal Vaccine: Pediatrics (0 to 5 Years) and At-Risk Patients (6 to 64 Years) (1 of 2 - PCV) 1984 Zoster Vaccines (1 of 2) 2015 Cholesterol Screening (Lipid Panel) 11/02/2023 Colorectal Cancer Screening: Colonoscopy 11/02/2023 Depression Screening 11/02/2023 HIV Screening 11/02/2023 Hepatitis C Screening 11/02/2023 Social Influencers of Health Screening 11/02/2023 COVID-19 Vaccine (3 - 2023-2 5 season) 2024 03/04/2021, 02/11/2021 Influenza Vaccine (#1) 2024 RSV Immunization Patients 60 + Years Old (1 - 1-dose 75+ series) 2040 HIB Vaccines Aged Out No longer eligi ble based on patient's age to complete this topic HPV Vaccines Aged Out No longer eligi ble based on patient's age to complete this topic Hepatitis A Vaccines Aged Out No long er eligible based on patient's age to complete this topic IPV Vaccines Aged Out No longer eligi ble based on patient's age to complete this topic MMR Vaccines Aged Out No longer eligi ble based on patient's age to complete this topic Meningococcal ACWY Vaccine Aged Out N o longer eligible based on patient's age to complete this topic Meningococcal B Vacine Aged Out No lo nger eligible based on patient's age to complete this topic RSV Immunization Patients Under 20 months Aged Out No longer eligible b ased on patient's age to complete this topic Varicella Vaccines Aged Out No longer eligible based on patient's age to complete this topic Procedures Procedure Name Priority Date/Time Associated Diagnosis Comments CBC WITH AUTO DIFFERENTIAL Routine 08/29/2024 12:00 AM EST Cellulitis, unspecified CBC AND DIFFERENTIAL Routine 08/29/2024 12:00 AM EST Cellulitis, unspecified CREATINE KINASE Routine 08/29/2024 12:00 AM EST Cellulitis, unspecified COMPREHENSIVE METABOLIC PANEL Routine 08/29/2024 12:00 AM EST Cellulitis, unspecified CBC WITH AUTO DIFFERENTIAL Routine 08/21/2024 12:00 AM EST Cellulitis, unspecified CREATINE KINASE Routine 08/21/2024 12:00 AM EST Cellulitis, unspecified COMPREHENSIVE METABOLIC PANEL Routine 08/21/2024 12:00 AM EST Cellulitis, unspecified CBC AND DIFFERENTIAL Routine 08/21/2024 12:00 AM EST Cellulitis, unspecified from Last 3 Months Results * (ABNORMAL) CBC auto differential (08/29/2024 12:00 AM EST) Only the most recent of2 resultswithin the time period is included. WBC 6.7 4.8 - 10.8 K/mcL LAB HEMETOLOGY METHOD 08/30/2024 9:13 AM [facility] LAB RBC 3.90(L) 4.50 - 5.50 M/[facility] LAB HEMETOLOGY METHOD 08/30/2024 9:13 AM [facility] LAB Hemoglobin 10.5(L) 13.5 - 17.5 g/dL LAB HEMETOLOGY METHOD 08/30/2024 9:13 AM [facility] LAB Hematocrit 32.8(L) 42.0 - 54.0 % LAB HEMETOLOGY METHOD 08/30/2024 9:13 AM [facility] LAB MCV 84.5 79.0 - 98.0 FL LAB HEMETOLOGY METHOD 08/30/2024 9:13 AM [facility] LAB MCH 27.1 27.0 - 32.0 pcg LAB HEMETOLOGY METHOD 08/30/2024 9:13 AM [facility] LAB MCHC 32.0 32.0 - 37.0 g/dL LAB HEMETOLOGY METHOD 08/30/2024 9:13 AM [facility] LAB RDW 14.9 11.0 - 15.0 % LAB HEMETOLOGY METHOD 08/30/2024 9:13 AM [facility] LAB Platelets 206 130 - 400 K/mcL LAB HEMETOLOGY METHOD 08/30/2024 9:13 AM [facility] LAB MPV 12.6(H) 7.0 - 11.0 FL LAB HEMETOLOGY METHOD 08/30/2024 9:13 AM [facility] LAB NRBC 0.0 <1.0 % LAB HEMETOLOGY METHOD 08/30/2024 9:13 AM [facility] LAB NRBC Absolute 0.00 <0.10 K/mcL LAB HEMETOLOGY METHOD 08/30/2024 9:13 AM [facility] LAB Neutrophils Relative 63.6 % LAB HEMETOLOGY METHOD 08/30/2024 9:13 AM [facility] LAB Lymphocytes Relative 20.7 % LAB HEMETOLOGY METHOD 08/30/2024 9:13 AM [facility] LAB Monocytes Relative 11.6 % LAB HEMETOLOGY METHOD 08/30/2024 9:13 AM [facility] LAB Eosinophils Relative 3.0 % LAB HEMETOLOGY METHOD 08/30/2024 9:13 AM [facility] LAB Basophils Relative 1.0 % LAB HEMETOLOGY METHOD 08/30/2024 9:13 AM [facility] LAB Immature Granulocytes Relative 0.1 % LAB HEMETOLOGY METHOD 08/30/2024 9:13 AM EST [facility] LAB Neutrophils Absolute 4.26 1.50 - 7.00 K/[facility] LAB HEMETOLOGY METHOD 08/30/2024 9:13 AM EST [facility] LAB Lymphocytes Absolute 1.39 1.00 - 5.00 K/mcL LAB HEMETOLOGY METHOD 08/30/2024 9:13 AM EST [facility] LAB Monocytes Absolute 0.78 0.20 - 1.00 K/mcL LAB HEMETOLOGY METHOD 08/30/2024 9:13 AM EST [facility] LAB Eosinophils Absolute 0.20 0.00 - 0.50 K/[facility] LAB HEMETOLOGY METHOD 08/30/2024 9:13 AM [facility] LAB Basophils Absolute 0.07 0.00 - 0.20 K/mcL LAB HEMETOLOGY METHOD 08/30/2024 9:13 AM EST [facility] LAB Immature Granulocytes Absolute 0.01 0.00 - 0.03 K/mcL LAB HEMETOLOGY METHOD 08/30/2024 9:13 AM [facility] LAB Blood Venous blood specimen / Unknown 08/29/2024 08/30/2024 9:03 AM EST Mary ROE LAB BLOOD ORDERABLES Final Result [facility] LAB [address] [place] [address], * Creatine kinase (08/29/2024 12:00 AM EST) Only the most recent of2 resultswithin the time period is included. Total CK 63 22 - 269 unit/L LAB CHEMISTRY METHOD 08/30/2024 9:25 AM EST [facility] LAB Blood Venous blood specimen / Unknown 08/29/2024 08/30/2024 9:03 AM EST us Mary ROE LAB BLOOD ORDERABLES Final Result [facility] LAB [address] [place] [address], * (ABNORMAL) Comprehensive metabolic panel (08/29/2024 12:00 AM EST) Only the most recent of2 resultswithin the time period is included. Sodium 138 133 - 145 mmol/L LAB CHEMISTRY METHOD 08/30/2024 9:25 AM EST [facility] LAB Potassium 4.8 3.5 - 5.5 mmol/L LAB CHEMISTRY METHOD 08/30/2024 9:25 AM [facility] LAB Chloride 105 96 - 110 mmol/L LAB CHEMISTRY METHOD 08/30/2024 9:25 AM [facility] LAB CO2 27 21 - 32 mmol/L LAB CHEMISTRY METHOD 08/30/2024 9:25 AM [facility] LAB Anion Gap 6 3 - 11 LAB CHEMISTRY METHOD 08/30/2024 9:25 AM [facility] LAB Glucose 104(H) 70 - 100 mg/dL LAB CHEMISTRY METHOD 08/30/2024 9:25 AM [facility] LAB BUN 26(H) 5 - 25 mg/dL LAB CHEMISTRY METHOD 08/30/2024 9:25 AM [facility] LAB Creatinine 1.10 0.70 - 1.30 mg/dL LAB CHEMISTRY METHOD 08/30/2024 9:25 AM [facility] LAB eGFR 77 >=60 mL/min/1. 73m2 LAB CHEMISTRY METHOD 08/30/2024 9:25 AM [facility] LAB Comment:Calculation based on the??Chronic Kidney Disease Epidemiology Collaboration (CKD-EPI) equation refit??without adjustment for race. BUN/Creatinine Ratio 23.6 LAB CHEMISTRY METHOD 08/30/2024 9:25 AM [facility] LAB Calcium 9.4 8.5 - 10.5 mg/dL LAB CHEMISTRY METHOD 08/30/2024 9:25 AM [facility] LAB AST (SGOT) 16 10 - 42 unit/L LAB CHEMISTRY METHOD 08/30/2024 9:25 AM [facility] LAB ALT (SGPT) 24 10 - 60 unit/L LAB CHEMISTRY METHOD 08/30/2024 9:25 AM [facility] LAB Alkaline Phosphatase 91 42 - 121 unit/L LAB CHEMISTRY METHOD 08/30/2024 9:25 AM [facility] LAB Total Protein 7.7 6.0 - 8.0 g/dL LAB CHEMISTRY METHOD 08/30/2024 9:25 AM [facility] LAB Albumin 4.0 3.2 - 5.0 g/dL LAB CHEMISTRY METHOD 08/30/2024 9:25 AM [facility] LAB Total Bilirubin 0.2 0.0 - 1.4 mg/dL LAB CHEMISTRY METHOD 08/30/2024 9:25 AM [facility] LAB Blood Venous blood specimen / Unknown 08/29/2024 08/30/2024 9:03 AM EST us Mary ROE LAB BLOOD ORDERABLES Final Result [facility] LAB [address] [place] [address], from Last 3 Months Insurance MEDICAID - [place] Advance Directives Documents on File Type Date Recorded Patient Voicer Expl anation Health Care Decision (hx) 01/22/2023 AD PURDY DIRECTIVE Health Care Decision (hx) 01/22/2023 AD PURDY DIRECTIVE Health Care Decision (hx) 01/22/2023 AD PURDY DIRECTIVE Health Care Decision (hx) 01/22/2023 AD PURDY DIRECTIVE Health Care Decision (hx) 01/22/2023 AD PURDY DIRECTIVE Health Care Decision (hx) 01/22/2023 AD PURDY DIRECTIVE Health Care Decision (hx) 01/22/2023 AD PURDY DIRECTIVE Health Care Decision (hx) 01/22/2023 AD PURDY DIRECTIVE Health Care Decision (hx) 01/22/2023 AD PURDY DIRECTIVE Health Care Decision (hx) 01/22/2023 AD PURDY DIRECTIVE Care Teams Content Strategist Relationship Specialty Start Date End Date Vicenta Nielsen FNP [address] [place] [phone] PCP - General 05/26/24
--- OUTSIDE RECORDS SUMMARY | 2024-11-15 12:44 | XMS_ITS | Encounter Summary ---
Author Organization [employer] Address [address] [place] [address] 7t [place] [address] Care Team Providers Care Head Teacher Name Role Phone Vicenta Nielsen NP Primary Care Provider [phone] Reason for Visit * Reason Onset Date Comments Chart Prep 10/31/2024 Encounter Details Date Type Department Care Team ([facility] st Contact Info) Description 10/31/2024 Telephone [facility] MEDICINE [address] [place] [address] Ronna Juarez MA Chart Prep Social History Tobacco Use Types Packs/Day Years [...] encounter Miscellaneous Notes * Telephone Encounter - Ronna Juarez MA - 10/31/2024 11:03 AM EST Chart Prep Labs: not done Images: done Vaccines due: Covid Due, Hep A Due, Hep B Due, and Flu Due Referrals: Completed Screenings: Colonoscopy , Eye Exam, Foot Exam, HIV screening, and Hep C Overdue care gaps: A1C and Glucose documented in this encounter Plan of Treatment Not on file documented as of this encounter Visit Diagnoses Not on filedocumented in this encounter Additional Health Concerns Assessment Noted Time PHQ-9 Depression Total Score: 7 07/25/20 9:24 AM EDT documented as of this encounter Care Teams Head Teacher Relationship Specialty Start Date End Date Vicenta Nielsen NP [address] [place] [phone] PCP - General Family Medicine 12/22/23 [employer] 04/29/24 abigail mcneill Store Receiving SpecialistRelief Map Modeler 10/18/24 documented as of this encounter
--- OUTSIDE RECORDS SUMMARY | 2024-11-15 12:44 | XMS_ITS | Encounter Summary ---
Author Organization [employer] Address [address] [employer] [address] [place] [address] Care Team Providers Care Pre Sales Technical Consultant Name Role Phone Valery Berrios MD Primary Care Provider [phone] Vicenta Nielsen NP Primary Care Provider [phone] Reason for Visit * Reason Onset Date Comments Referral 12/30/2022 Encounter Details Date Type Department Care Team (Late st Contact Info) Description 12/30/2022 Telephone [facility] MEDICINE [address] [place] [address] Valery Berrios MD [address] [facility] [place] [phone] Referral Social History Tobacco Use Types Packs/Day [...] suspected to have Coronavirus/COVID-19? No / Unsure 04/15/2023 8:36 AM EDT documented as of this encounter Miscellaneous Notes * Telephone Encounter - Christine Sanchez - 01/07/2023 12:45 PM EDT Tc from pt requesting status update on PT-1 requesting. Please contact at [phone] * Telephone Encounter - Christine Sanchez - 12/30/2022 2:48 PM EDT c from pt requesting a PT-1 Form, States has an upcoming appt. PT 1 request Name of facility : [facility] Address : [address] [place] [address] Specialty : shoe specialist Time : 10am Date : 01/06/23 Fax N/a Wheel Chair : No Poultry Process Worker : No PT 1 request Name of facility : [facility] Address : [address] [address] Specialty : Orthopedics Time : n/a Date : n/a Phone : Fax N/a Wheel Chair : No Poultry Process Worker : [place] of facility : [facility] Address : [address] [place] [id number] Specialty : Surgery Time : 8am Date : 01/14/23 Fax N/a Wheel Chair : No Poultry Process Worker : No Please contact at [phone] documented in this encounter Plan of Treatment Not on file documented as of this encounter Visit Diagnoses Not on filedocumented in this encounter Additional Health Concerns Assessment Noted Time PHQ-9 Depression Total Score: 0 10/20/19 2:41 PM EST documented as of this encounter Care Teams Pre Sales Technical Consultant Relationship Specialty Start Date End Date Valery Berrios MD [address] [place] [phone] PCP - General Internal Medicine 12/01/18 12/21/23 Vicenta Nielsen NP [address] [place] [address] PCP - General Family Medicine 12/22/23 [employer] 04/29/24 abigail mcneill Netbackup EngineerWarehouse Logistics Coordinator 10/18/24 documented as of this encounter
--- OUTSIDE RECORDS SUMMARY | 2024-11-15 12:44 | XMS_ITS | Encounter Summary ---
Author Organization [employer] Address [address] [place] [address] 7[address] [place] [address] Care Team Providers Care Welder Plastic Name Role Phone Vicenta Nielsen NP Primary Care Provider [phone] Reason for Visit * Reason Onset Date Comments Lab Orders 10/31/2024 Encounter Details Date Type Department Care Team (Late st Contact Info) Description 10/31/2024 Telephone [facility] MEDICINE [address] [place] [address] Vicenta Nielsen NP [address] [place] [address] Lab Orders Social History Tobacco Use Types Packs/Day Years [...] encounter Miscellaneous Notes * Telephone Encounter - Genesis Espinoza RN - 10/31/2024 4:13 PM EST Call returned to pt re: messages requesting lab order and PT referral. Pt reports he received a PT referral for his hip. Pt states he needs a PT referral for bilateral hips and bilateral knees. Reports that he aches like crazy because he hasn't walked in so long. Pt [facility]. Pt also c/o left sided internal rib pain that started 3 weeks ago. States pain is near his last rib. Reports pain was 10/10 and he has pmh of a kidney stone. Pt denies urinary issues and states pain level now is 1-2/10. Reports he feels pain when he pushes on his left ribs. States he has been usingmuscles he hasn't used in awhile and it is possible that pain is muscular. Pt states he is anemic and would like labs to check anemia, kidney and liver function. States he goes to wound care every Wednesday and would like to have labs done at [facility] when he goes so that he can discuss with pcp at upcoming f/u. Reviewed ED precautions with pt and advise of WIC availability for urgent concerns. Requests sent to pcp for review. * Telephone Encounter - Jacobo Ross - 10/31/2024 10:34 AM EST Tc from pt requesting for bloodwork to be done on him due to him having some concerns about his kidneys and lower back pain. documented in this encounter Plan of Treatment Not on file documented as of this encounter Visit Diagnoses Not on filedocumented in this encounter Additional Health Concerns Assessment Noted Time PHQ-9 Depression Total Score: 7 07/25/20 9:24 AM EDT documented as of this encounter Care Teams Welder Plastic Relationship Specialty Start Date End Date Vicenta Nielsen NP [address] [place] [phone] PCP - General Family Medicine 12/22/23 [employer] 04/29/24 abigail mcneill Mailing ClerkAcoustical Tile Carpenters Supervisor 10/18/24 documented as of this encounter
--- OUTSIDE RECORDS SUMMARY | 2024-11-15 12:44 | XMS_ITS | Encounter Summary ---
Author Organization [employer] Address [address] [place] [address] 7 [place] [address] Care Team Providers Care Trial Management Associate Name Role Phone Valery Berrios MD Primary Care Provider [phone] Vicenta Nielsen NP Primary Care Provider [phone] Reason for Visit * Reason Onset Date Comments Ultrasound Status 11/18/2022 Encounter Details Date Type Department Care Team ([facility] st Contact Info) Description 11/18/2022 Telephone [facility] CHC MED & PEDS [address] [place] [address] Valery Berrios MD [address] [place] [address] Ultrasound Status Social History Tobacco Use Types Packs/Day Years [...] PM EST documented as of this encounter Miscellaneous Notes * Telephone Encounter - Sindi Hedrick RN - 11/26/2022 4:14 PM EST Incoming message from PCP As there is no mention of Kidney stone on the US report I cannot write a letter that Mr Bam Wise has kidney stone. If having difficulty urinating. I will refer to Urology for an assessment if he is agreeable with that. RN called pt and informed pt of above message. Pt a very upset stating that he doesn't know why PCPwill not write the letter. Pt states it's difficult for him start to urinate and sometimes he is unable to get his Methadone because he is unable to give urine sample. Pt states he is not interested in seeing the urologist because he has seen multiple urologist in the past with no good effect. Pt informed this RN checked [facility] and there is no dx of his complain. Pt advised letter cannot be written without appropriate dx and that pt can call [facility] back with the numberfor the urologist so that PCP's office can f/u with them to request notes and update dx. Pt also gave this RN the number to the methadone clinic to f/u. RN called [phone], phone recording statesnumber you have dialed is not in service. Pt agreed to call [facility] back with the number for the urologist. Will forward message to PCP as TANIA * Telephone Encounter - Lisbeth Muñoz RN - 11/24/2022 1:24 PM EST Incoming message from PCP: Please call. 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 Pt needs an MR renal mass protocol for further characterization. Call to pt and pt informed of results and plan. Advised he will be contacted with appt info once itis scheduled. Pt inquiring if the lesions could be due to his Hx kidney stones. RN advised unable to answer this question but recommended pt complete the ordered MRI to assess further. Pt verbalizes understanding. Pt requesting a letter from PCP. States he has been going to the Methadone clinic for many years. Per pt, testing was being done with swabs for the last 5 years. Pt states the clinic changed from swabs to urine collection. Per pt, not able to urinate on demand. States he needs a letter from PCP stating that the pt has difficulty urinating due to Hx kidney stones. Per pt, PCP is aware of his urinary symptoms. States he has been asking for this letter for over a year. Per pt, does not understand why PCP will not provide him with the letter. States that certain concerns or requests that he makestend to take years when they could be dealt with during a single visit. Per pt, feels PCP does not understand him. States PCP may not understand [place] or that he may just be being prejudice. Advised will send to PCP to review. Will call pt with response. Pt agrees. * Telephone Encounter - Kieraabdelrahman Jeff Burciaga - 11/18/2022 3:34 PM EST Tc from pt requesting Ultrasound results that he had done last Wednesday,. Pt is also requesting a letter from provider, stating that pt has trouble urinating and could use swabs except urinating, If any question please contact the clinic at [phone] [facility] [place]. Pt is also requesting for his Coordinator to give him a call back. If any questions please contact pt at [phone] documented in this encounter Plan of Treatment Not on file documented as of this encounter Visit Diagnoses Not on filedocumented in this encounter Additional Health Concerns Assessment Noted Time PHQ-9 Depression Total Score: 0 10/20/19 23 2:41 PM EST documented as of this encounter Care Teams Trial Management Associate Relationship Specialty Start Date End Date Valery Berrios MD [address] [place] [address] PCP - General Internal Medicine 12/01/18 12/21/23 Vicenta Nielsen NP [address] [place] [address] PCP - General Family Medicine 12/22/23 [employer] 04/29/24 abigail mcneill Liquor Store ManagerTerminologist 10/18/24 documented as of this encounter
--- OUTSIDE RECORDS SUMMARY | 2024-11-15 12:44 | XMS_ITS | Encounter Summary ---
Author Organization [employer] Address [address] [place] [address] 7t [place] [address] Care Team Providers Care Boat And Plant Utility Supervisor Name Role Phone Vicenta Nielsen SAFETY SPEC Primary Care Provider [phone] Reason for Visit * Reason Comments Care Coordination CHW outreach for SDO H PT-1 and food needs-referral completed Encounter Details Date Type Department Care Team (Latest Contact Info) Description 10/31/2024 Patient Outreach [facility] PEDIATRICS [address] [place] [address] Vicenta Nielsen, JUSTINO [address] [place] [address] Care Coordination (CHW outreach for SDOH PT-1 and food needs-referral completed /) Social History Tobacco Use Types Packs/Day Years [...] AM EDT documented as of this encounter Progress Notes * Tomas York - 10/31/2024 11:23 AM EST CHW Tomas York, placed outbound call to patient for assistance with SDOH as a referral was received by the provider. Patient's name and were confirmed. Patient screened positive for the following SDOH food insecurities. CHW referral patient to the local list of pantries in the area for help. Renzo Oropezaab [facility] [address] [place] [address]. PT-1 requested was send out in beh halfway of patient for futures appt. Patient verbalizes understanding, and able to agree with plan to follow up. Patient educated on extended clinic hours on Mondays through Wednesdays, and Walk-In Urgent Care Located in [facility] of [facility]. Patient provided with after-hours line for [facility], , which offer night time triage service and option to transfer to insulation blanket maker provider if needed. documented in this encounter Plan of Treatment Not on file documented as of this encounter Visit Diagnoses Not on filedocumented in this encounter Additional Health Concerns Assessment Noted Time PHQ-9 Depression Total Score: 7 07/25/20 24 9:24 AM EDT documented as of this encounter Care Teams Boat And Plant Utility Supervisor Relationship Specialty Start Date End Date Vicenta Nielsen NP [address] [place] [address] PCP - General Family Medicine 12/22/23 [employer] 04/29/24 abigail mcneill Electrician PowerhouseWater Treatment Plant Mechanic 10/18/24 documented as of this encounter
--- OUTSIDE RECORDS SUMMARY | 2024-11-15 12:44 | XMS_ITS | Encounter Summary ---
Author Organization [employer] Address [address] [place] [address] 7t [place] [address] Care Team Providers Care Certified Personal Finance Counselor Name Role Phone Vicenta Nielsen NP Primary Care Provider [phone] Reason for Visit * Reason Onset Date Comments Medication Question 10/10/2024 Encounter Details Date Type Department Care Team ([facility] st Contact Info) Description 10/10/2024 Telephone [facility] MEDICINE [address] [place] [address] Vicenta Nielsen NP [address] [place] [address] Medication Question Social History Tobacco Use Types Packs/Day Years [...] Telephone Encounter - Jeanette Castillo RN - 10/16/2024 2:51 PM EST TC placed to inform pt updated prescription for insulin lispro (HumaLOG) 100 UNIT/ML injection was sent to the pharmacy. Pt verbalized understanding and denies any further questions or concerns at this time. * Telephone Encounter - Vicenta Nielsen NP - 10/16/2024 2:38 PM EST Updated rx sent * Addendum Note - Vicenta Nielsen NP - 10/16/2024 2:38 PM ESTAddended by: VICENTA NIELSEN on: 10/16/2024 02:38 PM Modules accepted: Orders * Telephone Encounter - Jeanette Castillo RN - 10/16/2024 1:24 PM EST TC placed to pt per PCP message to clarify timing of meals. Pt reports he eats breakfast between 04:00-08:00 AM, another snack or meal between 08:00-12:00, lunch between 12:00-4:00 PM, and dinner or snack between 07:00-10:00 PM. Pt reports this is the typical schedule for his meals, but it varies depending on the appointments he has. Pt reports a pain in his left side that he has had for 7 days that comes and goes. He currently rates it as a 0/10, but when the pain is comes, it is rated a 10/10. Pt reports he believes it is a pulled muscle as it gets worse with certain movements and has been improving. Denies any fever and chills. Pt reports that he gets panic attacks sometimes that cause SOB during the attack. States that when he has a panic attack it is due to PMH of MRSA infection, kidney infections, etc . Pt denies any questions or concerns. Pt has an appointment with PCP on 11/10/24. Pt verbalized he will attend appointment. Message forwarded to provider for review. * Telephone Encounter - Jeanette Castillo RN - 10/12/2024 1:21 PM EST TC to pt to discuss increased usage of insulin. Pt states he eats meals on wheels typically having a zero carb wrap with lettuce, tomato, and meat. He states he eats chicken, turkey and salad frequently. Pt states he has been using approx. 80 units per day. Lately, he has been going through one 300unit pen every 5 days. Pt was advised by dietitian to eat 4 small meals per day which pt reports hehas been doing. Pt does not report any symptoms and states he feels good . Pt states blood sugar has been 171-240 over the last two weeks. States his highest sugar was 350. Pt reports he was advisedto take 40 MG of lisinopril by PCP if BP was not decreasing. Pt reports taking 40 MG of lisinopril for the last 3 days and his reading on the first 2 days was within range at 125/80 but reading todaywas 158/90. Pt reports being concerned about BP readings. Pt currently has enough insulin pens but is requesting the prescription to read 4 times per day instead of 3 times per day. Message forwardedto provider for review. * Telephone Encounter - Elmer Sykes - 10/10/2024 11:50 AM EST Tc from pt stating in the last 2 months he has found himself needing more insulin and he feels it could have something to do with the increase in lisinopril. Pt states he will be running out of insulin prematurely and is requesting a new script written for 4 times daily instead of 3 times daily. Please contact pt at [phone]. documented in this encounter Plan of Treatment Not on file documented as of this encounter Visit Diagnoses Diagnosis Type 2 diabetes mellitus with hyperglycemia, with long-term current use of insulin ([facility])- Primary documented in this encounter Additional Health Concerns Assessment Noted Time PHQ-9 Depression Total Score: 7 07/25/20 24 9:24 AM EDT documented as of this encounter Care Teams Certified Personal Finance Counselor Relationship Specialty Start Date End Date Vicenta Nielsen NP [address] [place] [address] PCP - General Family Medicine 12/22/23 [employer] 04/29/24 documented as of this encounter
--- OUTSIDE RECORDS SUMMARY | 2024-11-15 12:44 | XMS_ITS | Encounter Summary ---
Author Organization [employer] Address [address] [facility] 7t [place] [address] Care Team Providers Care Director Database Name Role Phone Valery Berrios MD Primary Care Provider [phone] Vicenta Nielsen NP Primary Care Provider [phone] Reason for Visit * Reason Onset Date Comments Referral 02/19/2023 Encounter Details Date Type Department Care Team (Late st Contact Info) Description 02/16/2023 Telephone [facility] [address] [place] [address] Valery Berrios MD 505 [facility] [place] [phone] Referral Social History Tobacco Use Types Packs/Day [...] * Telephone Encounter - Christine Sanchez - 02/19/2023 8:26 AM EDT Tc from pt requesting a PT-1 Form, [facility] has an upcoming appt. PT 1 request Name of facility : [facility] Address : [address], [place] [address] Specialty : Orthopedics Time : n/a Date : N/a Fax N/a Wheel Chair : No Flexible Shaft Winder : Yes Name of facility : [facility] Address : [address] [place] [address] Specialty : PT Time : n/a Date : n/a Fax N/a Wheel Chair : No Flexible Shaft Winder : Yes * Telephone Encounter - Christine Sanchez - 02/16/2023 10:19 AM EDT Tc from pt requesting a PT-1 Form, [facility] has an upcoming appt. PT 1 request Name of facility : [facility] Address : [address] [place] [address] Specialty : DYLAN das Time : n/a Date :n/a Fax N/a Wheel Chair : No Flexible Shaft Winder : No documented in this encounter Plan of Treatment Not on file documented as of this encounter Visit Diagnoses Not on filedocumented in this encounter Additional Health Concerns Assessment Noted Time PHQ-9 Depression Total Score: 0 10/20/19 23 2:41 PM EST documented as of this encounter Care Teams Director Database Relationship Specialty Start Date End Date Valery Berrios MD [address] [place] [address] PCP - General Internal Medicine 12/01/18 12/21/23 Vicenta Nielsen NP [address] [place] [address] PCP - General Family Medicine 12/22/23 [employer] 04/29/24 abigail mcneill Mainframe Programmer AnalystPoultry Hatchery Man 10/18/24 documented as of this encounter
--- OUTSIDE RECORDS SUMMARY | 2024-11-15 12:44 | XMS_ITS | Encounter Summary ---
Author Organization [employer] Address [address] [place] [address] 7 [place] [address] Care Team Providers Care Heel Buffer Name Role Phone Valery Berrios MD Primary Care Provider [phone] Vicenta Nielsen NP Primary Care Provider [phone] Encounter Details Date Type Department Care Team ([facility] st Contact Info) Description 04/21/2023 Orders Only [facility] CHC MED & PEDS [address] [facility] [place] [address] Valery Berrios MD [address] [place] [address] Other iron deficiency anemia Social History Tobacco Use Types Packs/Day Years [...] as of this encounter Visit Diagnoses Diagnosis Other iron deficiency anemia documented in this encounter Additional Health Concerns Assessment Noted Time PHQ-9 Depression Total Score: 0 10/20/19 23 2:41 PM EST documented as of this encounter Care Teams Heel Buffer Relationship Specialty Start Date End Date Valery Berrios MD [address] [place] [address] PCP - General Internal Medicine 12/01/18 12/21/23 Vicenta Nielsen NP [address] [place] [address] PCP - General Family Medicine 12/22/23 [employer] 04/29/24 abigail mcneill Skates OperatorTransit Specialist 10/18/24 documented as of this encounter
--- OUTSIDE RECORDS SUMMARY | 2024-11-15 12:44 | XMS_ITS | Encounter Summary ---
Author Organization [employer] Address [address] [place] [address] 7t [place] [address] Care Team Providers Care Blood Donor Recruiter Name Role Phone Valery Berrios MD Primary Care Provider [phone] Vicenta Nielsen NP Primary Care Provider [phone] Reason for Visit * Reason Onset Date Comments pt1 03/03/2023 Encounter Details Date Type Department Care Team (Late st Contact Info) Description 03/03/2023 Telephone [facility] MEDICINE [address] [place] [address] Valery Berrios MD 505 [facility] [place] [phone] pt1 Social History Tobacco Use Types Packs/Day Years [...] PM EDT documented as of this encounter Miscellaneous Notes * Telephone Encounter - Erik Wiley - 03/03/2023 11:18 AM EDT Tc from pt requesting pt1 ride Date: wednesday Time: 10 am address: [address] [place] [address] [place] [address] specialty: # visits: immunohematologist: no Wheelchair: cane Date: Time: address: [address] [place] [address] specialty: # visits: immunohematologist: no Wheelchair: cane documented in this encounter Plan of Treatment Not on file documented as of this encounter Visit Diagnoses Not on filedocumented in this encounter Additional Health Concerns Assessment Noted Time PHQ-9 Depression Total Score: 0 10/20/19 23 2:41 PM EST documented as of this encounter Care Teams Blood Donor Recruiter Relationship Specialty Start Date End Date Valery Berrios MD [address] [place] [address] PCP - General Internal Medicine 12/01/18 12/21/23 Vicenta Nielsen NP [address] [place] [address] PCP - General Family Medicine 12/22/23 [employer] 04/29/24 abigail mcneill Oracle Identity Management ConsultantManaged Services Consultant 10/18/24 documented as of this encounter
--- OUTSIDE RECORDS SUMMARY | 2024-11-15 12:44 | XMS_ITS | Encounter Summary ---
Author Organization [employer] Address [address] [place] [address] 7t [place] [address] Care Team Providers Care Color Sprayer Name Role Phone Vicenta iNelsen NP Primary Care Provider [phone] Reason for Visit * Reason Onset Date Comments PT-1 04/25/2024 Encounter Details Date Type Department Care Team ([facility] st Contact Info) Description 04/25/2024 Telephone [facility] MEDICINE [address] [place] [address] Vicenta Nielsen NP [address] [place] [address] PT-1 Social History Tobacco Use Types Packs/Day Years [...] encounter Miscellaneous Notes * Telephone Encounter - Jone Kaufman - 05/03/2024 8:36 AM EDT Tc from [facility] requesting PT1 Home Address verified: Y/N: Yes Provider name or facility name: Abdiel Jasso MD- Vascular surgeon Facility Address: [address] [place] [address] Escort needed: Y/N: No Do you have a wheelchair: Y/N: Yes If yes- Manual or electric: Manual visits:2 x a month Provider name or facility name: [facility] Facility Address: [address] [place] [address] Escort needed: Y/N: No Do you have a wheelchair: Y/N: Yes If yes- Manual or electric: Manual Visits: 2 x a month Provider name or facility name: [facility] Facility Address: [address] [place] [address] Escort needed: Y/N: No Do you have a wheelchair: Y/N: Yes If yes- Manual or electric: Manual Visits: twice a week Provider name or facility name: [facility] Facility Address: [address] [place] [address] [address] [place] [address] Escort needed: Y/N: No Do you have a wheelchair: Y/N: Yes If yes- Manual or electric: Manual Visits: 1 x a month Provider name or facility name: [facility] Facility Address: [address] [place] [address] Escort needed: Y/N: No Do you have a wheelchair: Y/N: Yes If yes- Manual or electric: Manual Visits: 3 x a month Provider name or facility name: Leilani Hogan MD- [facility] Facility Address: [address] [place] [address] Escort needed: Y/N: No Do you have a wheelchair: Y/N: Yes If yes- Manual or electric: Manual Visits: 6 x a month Provider name or facility name: [facility] Facility Address: [address] [place] [address] [address], [place] [address] Escort needed: Y/N: No Do you have a wheelchair: Y/N: Yes If yes- Manual or electric: Manual Visits: 4x a year Provider name or facility name: [facility] Facility Address: [address] [place] [address] Escort needed: Y/N: No Do you have a wheelchair: Y/N: Yes If yes- Manual or electric: Manual Visits: 4 x a year Provider name or facility name: Dr. Praveena Quan MD- cuff presser Facility Address: [address] [place] [address] Escort needed: Y/N: No Do you have a wheelchair: Y/N: Yes If yes- Manual or electric: Manual Visits: once a month Please contact at [phone] Needs door to door services * Telephone Encounter - Jone Kaufman - 05/02/2024 8:15 AM EDT Tc from patient calling to request the status of t PT-1 in the message below * Telephone Encounter - Jone Kaufman - 05/01/2024 8:28 AM EDT Tc from [facility] requesting PT1 Home Address verified: Y/N: Yes Provider name or facility name: Abdiel Jasso MD- Vascular surgeon Facility Address: [address] [place] [address] Escort needed: Y/N: No Do you have a wheelchair: Y/N: Yes If yes- Manual or electric: Manual visits:2 x a month Appt is for 05/02 states was denied * Telephone Encounter - Christine Sanchez - 04/25/2024 8:46 AM EDT Tc from [facility] requesting PT1 Home Address verified: Y/N: Yes Provider name or facility name: Abdiel Jasso MD- Vascular surgeon Facility Address: [address] [address] Escort needed: Y/N: No Do you have a wheelchair: Y/N: Yes If yes- Manual or electric: Manual visits:2 x a month Provider name or facility name: [facility] Facility [facility] [address] [facility] [place] [address] Escort needed: Y/N: No Do you have a wheelchair: Y/N: Yes If yes- Manual or electric: Manual Visits: 2 x a month Provider name or facility name: [facility] Facility Address: [address] [place] [address] Escort needed: Y/N: No Do you have a wheelchair: Y/N: Yes If yes- Manual or electric: Manual Visits: twice a week Provider name or facility name: [facility] Facility Address: [address] [place] [address] Escort needed: Y/N: No Do you have a wheelchair: Y/N: Yes If yes- Manual or electric: Manual Visits: 1 x a month Provider name or facility name: [facility] Facility Address: [address] [facility] [address] Escort needed: Y/N: No Do you have a wheelchair: Y/N: Yes If yes- Manual or electric: Manual Visits: 3 x a month Provider name or facility name: Leilani Hogan MD- [facility] Facility Address: [address] [place] [address] Escort needed: Y/N: No Do you have a wheelchair: Y/N: Yes If yes- Manual or electric: Manual Visits: 6 x a month Provider name or facility name: [facility] Facility Address: [address] [place] [address] [address], [place] [address] Escort needed: Y/N: No Do you have a wheelchair: Y/N: Yes If yes- Manual or electric: Manual Visits: 4x a year Provider name or facility name: [facility] Facility Address: [address] [place] [address] Escort needed: Y/N: No Do you have a wheelchair: Y/N: Yes If yes- Manual or electric: Manual Visits: 4 x a year Provider name or facility name: Dr. Praveena Quan MD- cuff presser Facility Address: [address] [place] [address] Escort needed: Y/N: No Do you have a wheelchair: Y/N: Yes If yes- Manual or electric: Manual Visits: once a month Please contact at [phone] documented in this encounter Plan of Treatment Not on file documented as of this encounter Visit Diagnoses Not on filedocumented in this encounter Additional Health Concerns Assessment Noted Time PHQ-9 Depression Total Score: 5 01/04/20 24 10:57 AM EDT documented as of this encounter Care Teams Color Sprayer Relationship Specialty Start Date End Date Vicenta Nielsen NP [address] [place] [address] PCP - General Family Medicine 12/22/23 [facility] [employer] 04/29/24 documented as of this encounter
--- OUTSIDE RECORDS SUMMARY | 2024-11-15 12:44 | XMS_ITS | Encounter Summary ---
Author Organization [employer] Address [address] [place] [address] 7t [place] [address] Care Team Providers Care Superintendent Maintenance Name Role Phone Vicenta Nielsen NP Primary Care Provider [phone] Reason for Visit * Reason Onset Date Comments DME from [facility] 10/16/2024 Encounter Details Date Type Department Care Team ([facility] Contact Info) Description 10/16/2024 Telephone [facility] MEDICINE [address] [place] [address] David Pate MA DME from [facility] Social History Tobacco Use Types Packs/Day Years [...] encounter Miscellaneous Notes * Telephone Encounter - David Pate MA - 10/16/2024 1:14 PM EST Certificate or medical necessity and DME for leg rest and labor modification from [employer] seating and mobility placed on PCP desk for signature. Certificate or medical necessity and DME for leg restand labor modification signed and faxed to [facility] . Confirmation received and sent to scan. If patient calls to check status on above, please advise them to contact [facility] [employer] at [phone]. documented in this encounter Plan of Treatment Not on file documented as of this encounter Visit Diagnoses Not on filedocumented in this encounter Additional Health Concerns Assessment Noted Time PHQ-9 Depression Total Score: 7 07/25/20 9:24 AM EDT documented as of this encounter Care Teams Superintendent Maintenance Relationship Specialty Start Date End Date Vicenta Nielsen NP [address] [place] [address] PCP - General Family Medicine 12/22/23 [employer] 04/29/24 documented as of this encounter
--- OUTSIDE RECORDS SUMMARY | 2024-11-15 12:44 | XMS_ITS | Encounter Summary ---
Author Organization [employer] Address [address] [place] [address] 7t [place] [address] Care Team Providers Care Accounting Clerks Supervisor Name Role Phone Vicenta Nielsen NP Primary Care Provider [phone] Reason for Visit * Reason Onset Date Comments Referral 10/31/2024 Encounter Details Date Type Department Care Team ([facility] st Contact Info) Description 10/31/[address] [facility] MEDICINE [address] [place] [address] Vicenta Nielsen NP [address] [place] [address] Referral Social History Tobacco Use Types Packs/Day [...] encounter Miscellaneous Notes * Telephone Encounter - Jacobo Ross - 10/31/2024 10:22 AM EST Tc from pt requesting a referral for Physical Therapy for his hip knee and for exercise on leg. Pt legs are amputated. Pt states that he is in a lot of pain. Contact pt: [phone] documented in this encounter Plan of Treatment Not on file documented as of this encounter Visit Diagnoses Not on filedocumented in this encounter Additional Health Concerns Assessment Noted Time PHQ-9 Depression Total Score: 7 07/25/20 9:24 AM EDT documented as of this encounter Care Teams Accounting Clerks Supervisor Relationship Specialty Start Date End Date Vicenta Nielsen NP [address] [place] [address] PCP - General Family Medicine 12/22/23 [employer] 04/29/24 abigail [email or web address] Certified Surgical AssistantFire Production Operator 10/18/24 documented as of this encounter
--- OUTSIDE RECORDS SUMMARY | 2024-11-15 12:44 | XMS_ITS | Encounter Summary ---
Author Organization [employer] Address [address] [place] [address] 7t [place] [address] Care Team Providers Care Checkout Supervisor Name Role Phone Vicenta Nielsen NP Primary Care Provider [phone] Reason for Visit * Reason Onset Date Comments PT-1 10/31/2024 Encounter Details Date Type Department Care Team ([facility] st Contact Info) Description 10/31/2024 Telephone [facility] MEDICINE [address] [place] [address] Vicenta Nielsen NP [address] [place] [address] PT-1 Social History Tobacco Use Types Packs/Day [...] encounter Miscellaneous Notes * Telephone Encounter - Ophelia Henson - 10/31/2024 11:03 AM EST Patient calling requesting PT1 Home Address verified: Y/N: Yes Provider name or facility name: [address] [facility] [facility] Escort needed: Y/N: Yes Do you have a wheelchair: Y/N: Yes If yes- Manual or electric: electric Visits: (3) ( x monthly) * Telephone Encounter - Jacobo Ross - 10/31/2024 10:29 AM EST Patient calling requesting PT1 Home Address verified: Y/N: Yes Provider name or facility name: [facility] [address] [place] [address] Escort needed: Y/N: Yes Do you have a wheelchair: Y/N: Yes If yes- Manual or electric: Electric Visits: (amount of visits) ( x monthly, weekly, daily) 10 times a month for 3 month documented in this encounter Plan of Treatment Not on file documented as of this encounter Visit Diagnoses Not on filedocumented in this encounter Additional Health Concerns Assessment Noted Time PHQ-9 Depression Total Score: 7 07/25/20 24 9:24 AM EDT documented as of this encounter Care Teams Checkout Supervisor Relationship Specialty Start Date End Date Vicenta Nielsen NP [address] [place] [address] PCP - General Family Medicine 12/22/23 [employer] 04/29/24 abigail [email or web address] Microstrategy ArchitectDevelopment And Housing Director 10/18/24 documented as of this encounter
--- OUTSIDE RECORDS SUMMARY | 2024-11-15 12:44 | XMS_ITS | Encounter Summary ---
Author Organization [employer] Address [address] [place] [address] 7 [place] [address] Care Team Providers Care Marketing And Promotions Manager Name Role Phone Vicenta Nielsen NP Primary Care Provider [phone] Reason for Visit * Reason Comments Care Coordination ICP care plan Encounter Details Date Type Department Care Team (Latest Contact Info) Description 10/18/2024 Patient Outreach [facility] MEDICINE [address] [place] [address] Vicenta Nielsen NP [address] [place] [address] Care Coordination (ICP care plan) Social History Tobacco Use Types Packs/Day Years [...] as of this encounter Progress Notes * Magui Vasquez - 10/18/2024 11:46 AM EST PCP Designee has received and reviewed Care Plan from [facility]: Pattern Gater: Bernie Kamara Contact Information: [phone] Care Plan scanned into patient's EHR and notification sent to PCP. documented in this encounter Plan of Treatment Not on file documented as of this encounter Visit Diagnoses Not on filedocumented in this encounter Additional Health Concerns Assessment Noted Time PHQ-9 Depression Total Score: 7 07/25/20 9:24 AM EDT documented as of this encounter Care Teams Marketing And Promotions Manager Relationship Specialty Start Date End Date Vicenta Nielsen NP [address] [place] [address] PCP - General Family Medicine 12/22/23 [employer] 04/29/24 bernie kamara Sports MarketerTool Distributor 10/18/24 documented as of this encounter
--- OUTSIDE RECORDS SUMMARY | 2024-11-15 12:44 | XMS_ITS | Encounter Summary ---
Author Organization [employer] Address [address] [place] [address] [place] [address] Care Team Providers Care Spindle Maker Name Role Phone Valery Berrios MD Primary Care Provider [phone] Vicenta Nielsen NP Primary Care Provider [phone] Reason for Visit * Reason Onset Date Comments PT1 11/18/2022 Encounter Details Date Type Department Care Team ([facility] st Contact Info) Description 11/18/2022 Telephone [facility] [address] [place] [address] Valery Berrios MD [address] [place] [address] PT1 Social History Tobacco Use Types Packs/Day [...] Telephone Encounter - Lisbeth Muñoz RN - 11/19/2022 3:48 PM EST Call to pt to inform of below. No answer. Left v/m requesting return call. Will re route to nurse pool to re attempt contact with pt. * Telephone Encounter - Lisbeth Muñoz RN - 11/19/2022 3:48 PM EST ----- Message from Valery Berrios MD sent at 11/18/2022 4:35 PM EST ----- Please call. 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 Pt needs an MR renal mass protocol for further characterization. ----- Message ----- From: Interface, Ris Results In Sent: 11/16/2022 5:58 PM EST To: Valery Berrios MD * Telephone Encounter - Gonzalez Burciaga - 11/18/2022 3:44 PM EST Tc from pt requesting for a PT1 Location: [address] [place] [address] Specialty: All appts Time: n/a Date: n/a Toe Closing Machine Tender: n/a Does require a cane. Pt states previous PT1 will on December 09, 2022 If any question please contact pt at [phone] documented in this encounter Plan of Treatment Not on file documented as of this encounter Visit Diagnoses Not on filedocumented in this encounter Additional Health Concerns Assessment Noted Time PHQ-9 Depression Total Score: 0 10/20/19 23 2:41 PM EST documented as of this encounter Care Teams Spindle Maker Relationship Specialty Start Date End Date Valery Berrios MD [address] [place] [address] PCP - General Internal Medicine 12/01/18 12/21/23 Vicenta Nielsen NP [address] [place] [address] PCP - General Family Medicine 12/22/23 [employer] 04/29/24 abigail [email or web address] Ultr[employer]ic Welding Machine OperatorCommunity Education Coordinator 10/18/24 documented as of this encounter
--- OUTSIDE RECORDS SUMMARY | 2024-11-15 12:44 | XMS_ITS | Encounter Summary ---
Author Organization [employer] Address [address] [facility] 7t [place] [address] Care Team Providers Care Waiter Name Role Phone Valery Berrios MD Primary Care Provider [phone] Vicenta Nielsen NP Primary Care Provider [phone] Reason for Visit * Reason Onset Date Comments Referral 12/03/2022 Encounter Details Date Type Department Care Team (Late st Contact Info) Description 12/03/2022 Telephone [facility] MEDICINE [address] [place] [address] Valery Berrios MD [address] [facility] [place] [id number] Referral Social History Tobacco Use Types Packs/Day [...] * Telephone Encounter - Christine Sanchez - 12/03/2022 2:03 PM EST Tc from pt requesting a PT-1 Form, States has an upcoming appt. PT 1 request Name of facility : [facility] Address : [address] [place] [address] Specialty : PCP Time : n/a Date : pt is on a recall for 01/18/23 Fax N/a Wheel Chair : No Business Continuity Manager : No Please contact at [phone] documented in this encounter Plan of Treatment Not on file documented as of this encounter Visit Diagnoses Diagnosis Dietary counseling Dietary surveillance and counseling Exercise counseling Chronic type B viral hepatitis (CMS/HCC) Viral hepatitis B without mention of hepatic coma, chronic, without mention of hepatitis delta Opioid dependence (CMS/HCC) Opioid type dependence, unspecified abuse documented in this encounter Additional Health Concerns Assessment Noted Time PHQ-9 Depression Total Score: 0 10/20/19 2:41 PM EST documented as of this encounter Care Teams Waiter Relationship Specialty Start Date End Date Valery Berrios MD [address] [place] [address] PCP - General Internal Medicine 12/01/18 12/21/23 Vicenta Nielsen NP [address] [place] [address] PCP - General Family Medicine 12/22/23 [employer] 04/29/24 abigail [email or web address] Candy Forming Machine OperatorComptometrist 10/18/24 documented as of this encounter
--- OUTSIDE RECORDS SUMMARY | 2024-11-15 12:44 | XMS_ITS | Encounter Summary ---
Author Organization [employer] Address [address] [place] [address] 7 [place] [address] Care Team Providers Care Asphalt Spreader Operator Name Role Phone Vicenta Nielsen NP Primary Care Provider [phone] Reason for Visit * Reason Onset Date Comments PT1 05/29/2024 Encounter Details Date Type Department Care Team ([facility] st Contact Info) Description 05/29/2024 Telephone [facility] MEDICINE [address] [place] [address] Vicenta Nielsen NP [address] [place] [address] PT1 Social History Tobacco Use Types Packs/Day [...] * Telephone Encounter - Gonzalez Burciaga - 05/29/2024 12:45 PM EDT Tc from pt requesting for [address] [place] [address] PT1 to be modified for Yes escort and Door [employer] color control supervisor . documented in this encounter Plan of Treatment Not on file documented as of this encounter Visit Diagnoses Not on filedocumented in this encounter Additional Health Concerns Assessment Noted Time PHQ-9 Depression Total Score: 5 01/04/20 10:57 AM EDT documented as of this encounter Care Teams Asphalt Spreader Operator Relationship Specialty Start Date End Date Vicenta Nielsen NP [address] [place] [address] PCP - General Family Medicine 12/22/23 [employer] 04/29/24 abigail [email or web address] [employer] JointerMatrix Plater 10/18/24 documented as of this encounter
--- OUTSIDE RECORDS SUMMARY | 2024-11-15 12:44 | XMS_ITS | Encounter Summary ---
Author Organization [employer] Address [address] [place] [address] 7t [place] [address] Care Team Providers Care Rn Clinical Appeals Name Role Phone Vicenta Nielsen NP Primary Care Provider [phone] Reason for Visit * Reason Onset Date Comments Durable Medical Equipment 08/18/2024 Encounter Details Date Type Department Care Team ([facility] st Contact Info) Description 08/18/2024 Telephone [facility] MEDICINE [address] [place] [address] Vicenta Nielsen NP [address] [place] [address] Durable Medical Equipment Social History Tobacco Use Types Packs/Day Years [...] encounter Miscellaneous Notes * Telephone Encounter - Vicenta Nielsen NP - 08/21/2024 9:10 AM EST Okay to facilitate walker with seat- dx amputation * Telephone Encounter - Ophelia Henson - 08/18/2024 1:36 PM EST Tc from pt requesting a callback due to pt needing a walker with seat he receive his prostatic leg and he feels insecure. Callback number [phone] documented in this encounter Plan of Treatment Not on file documented as of this encounter Visit Diagnoses Not on filedocumented in this encounter Additional Health Concerns Assessment Noted Time PHQ-9 Depression Total Score: 7 07/25/20 9:24 AM EDT documented as of this encounter Care Teams Rn Clinical Appeals Relationship Specialty Start Date End Date Vicenta Nielsen NP [address] [place] [address] PCP - General Family Medicine 12/22/23 [employer] 04/29/24 abigail [email or web address] Tying In Machine OperatorComputer Customer Support Specialist 10/18/24 documented as of this encounter
--- OUTSIDE RECORDS SUMMARY | 2024-11-15 12:44 | XMS_ITS | Encounter Summary ---
Author Organization [facility] Address [address] [place] [address] Care Team Providers Care Irrigation Specialist Name Role Phone Vicenta Nielsne CATTLE BRANDER Primary Care Provider [phone] Encounter Details Date Type Department Care Team (Late st Contact Info) Description 08/30/2024 Lab Requisition [facility] Lab [address] [facility] [place] [address] Mary Song PA [address] [address] Cellulitis, unspecified Social History Tobacco Use Types Packs/Day [...] Routine 08/29/2024 12:00 AM EST Cellulitis, unspecified documented in this encounter Results * (ABNORMAL) CBC auto differential (08/29/2024 12:00 AM EST) [facility] WBC 6.7 4.8 - 10.8 K/mcL LAB HEMETOLOGY METHOD 08/30/2024 9:13 AM [facility] RBC 3.90(L) 4.50 - 5.50 M/mcL LAB HEMETOLOGY METHOD 08/30/2024 9:13 AM [facility] Hemoglobin 10.5(L) 13.5 - 17.5 g/dL LAB HEMETOLOGY METHOD 08/30/2024 9:13 AM [facility] Hematocrit 32.8(L) 42.0 - 54.0 % LAB HEMETOLOGY METHOD 08/30/2024 9:13 AM [facility] MCV 84.5 79.0 - 98.0 FL LAB HEMETOLOGY METHOD 08/30/2024 9:13 AM [facility] MCH 27.1 27.0 - 32.0 pcg LAB HEMETOLOGY METHOD 08/30/2024 9:13 AM [facility] MCHC 32.0 32.0 - 37.0 g/dL LAB HEMETOLOGY METHOD 08/30/2024 9:13 AM [facility] RDW 14.9 11.0 - 15.0 % LAB HEMETOLOGY METHOD 08/30/2024 9:13 AM [facility] Platelets 206 130 - 400 K/mcL LAB HEMETOLOGY METHOD 08/30/2024 9:13 AM [facility] MPV 12.6(H) 7.0 - 11.0 FL LAB HEMETOLOGY METHOD 08/30/2024 9:13 AM [facility] NRBC 0.0 <1.0 % LAB HEMETOLOGY METHOD 08/30/2024 9:13 AM [facility] NRBC Absolute 0.00 <0.10 K/mcL LAB HEMETOLOGY METHOD 08/30/2024 9:13 AM [facility] Neutrophils Relative 63.6 % LAB HEMETOLOGY METHOD 08/30/2024 9:13 AM [facility] Lymphocytes Relative 20.7 % LAB HEMETOLOGY METHOD 08/30/2024 9:13 AM [facility] Monocytes Relative 11.6 % LAB HEMETOLOGY METHOD 08/30/2024 9:13 AM [facility] Eosinophils Relative 3.0 % LAB HEMETOLOGY METHOD 08/30/2024 9:13 AM [facility] Basophils Relative 1.0 % LAB HEMETOLOGY METHOD 08/30/2024 9:13 AM [facility] Immature Granulocytes Relative 0.1 % LAB HEMETOLOGY METHOD 08/30/2024 9:13 AM [facility] Neutrophils Absolute 4.26 1.50 - 7.00 K/mcL LAB HEMETOLOGY METHOD 08/30/2024 9:13 AM [facility] Lymphocytes Absolute 1.39 1.00 - 5.00 K/mcL LAB HEMETOLOGY METHOD 08/30/2024 9:13 AM [facility] Monocytes Absolute 0.78 0.20 - 1.00 K/mcL LAB HEMETOLOGY METHOD 08/30/2024 9:13 AM [facility] Eosinophils Absolute 0.20 0.00 - 0.50 K/mcL LAB HEMETOLOGY METHOD 08/30/2024 9:13 AM [facility] Basophils Absolute 0.07 0.00 - 0.20 K/mcL LAB HEMETOLOGY METHOD 08/30/2024 9:13 AM [facility] Immature Granulocytes Absolute 0.01 0.00 - 0.03 K/mcL LAB HEMETOLOGY METHOD 08/30/2024 9:13 AM [facility] Blood Venous blood specimen / Unknown 08/29/2024 08/30/2024 9:03 AM EST us Mary ROE LAB BLOOD ORDERABLES Final Result Performing Organization Address [facility]/ZIP Co de Phone Number [facility] [address] [place] [address], [place] [phone] * Creatine kinase (08/29/2024 12:00 AM EST) Pathologist [facility] Total CK 63 22 - 269 unit/L LAB CHEMISTRY METHOD 08/30/2024 9:25 AM EST [facility] Blood Venous blood specimen / Unknown 08/29/2024 08/30/2024 9:03 AM EST us Mary ROE LAB BLOOD ORDERABLES Final Result Performing Organization Address [facility]/ZIP Co de Phone Number [facility] [address] [place] [address], [place] [phone] * (ABNORMAL) Comprehensive metabolic panel (08/29/2024 12:00 AM EST) [facility] Sodium 138 133 - 145 mmol/L LAB CHEMISTRY METHOD 08/30/2024 9:25 AM [facility] Potassium 4.8 3.5 - 5.5 mmol/L LAB CHEMISTRY METHOD 08/30/2024 9:25 AM [facility] Chloride 105 96 - 110 mmol/L LAB CHEMISTRY METHOD 08/30/2024 9:25 AM [facility] CO2 27 21 - 32 mmol/L LAB CHEMISTRY METHOD 08/30/2024 9:25 AM [facility] Anion Gap 6 3 - 11 LAB CHEMISTRY METHOD 08/30/2024 9:25 AM [facility] Glucose 104(H) 70 - 100 mg/dL LAB CHEMISTRY METHOD 08/30/2024 9:25 AM [facility] BUN 26(H) 5 - 25 mg/dL LAB CHEMISTRY METHOD 08/30/2024 9:25 AM [facility] Creatinine 1.10 0.70 - 1.30 mg/dL LAB CHEMISTRY METHOD 08/30/2024 9:25 AM [facility] eGFR 77 >=60 mL/min/1. 73m2 LAB CHEMISTRY METHOD 08/30/2024 9:25 AM [facility] Comment:Calculation based on the??Chronic Kidney Disease Epidemiology Collaboration (CKD-EPI) equation refit??without adjustment for race. BUN/Creatinine Ratio 23.6 LAB CHEMISTRY METHOD 08/30/2024 9:25 AM [facility] Calcium 9.4 8.5 - 10.5 mg/dL LAB CHEMISTRY METHOD 08/30/2024 9:25 AM [facility] AST (SGOT) 16 10 - 42 unit/L LAB CHEMISTRY METHOD 08/30/2024 9:25 AM [facility] ALT (SGPT) 24 10 - 60 unit/L LAB CHEMISTRY METHOD 08/30/2024 9:25 AM [facility] Alkaline Phosphatase 91 42 - 121 unit/L LAB CHEMISTRY METHOD 08/30/2024 9:25 AM [facility] Total Protein 7.7 6.0 - 8.0 g/dL LAB CHEMISTRY METHOD 08/30/2024 9:25 AM [facility] Albumin 4.0 3.2 - 5.0 g/dL LAB CHEMISTRY METHOD 08/30/2024 9:25 AM [facility] Total Bilirubin 0.2 0.0 - 1.4 mg/dL LAB CHEMISTRY METHOD 08/30/2024 9:25 AM [facility] Blood Venous blood specimen / Unknown 08/29/2024 08/30/2024 9:03 AM EST Mary ROE LAB BLOOD ORDERABLES Final Result [facility] [address] [place] [address], documented in this encounter Visit Diagnoses Diagnosis Cellulitis, unspecified documented in this encounter Care Teams Irrigation Specialist Relationship Specialty Start Date End Date Vicenta Nielsen FNP [address] [place] [phone] PCP - General 05/26/24 documented as of this encounter
--- OUTSIDE RECORDS SUMMARY | 2024-11-15 12:44 | XMS_ITS | Encounter Summary ---
Author Organization [employer] Address [address] [place] [address] [address] [place] [address] Care Team Providers Care Financial Advisor Name Role Phone Vicenta Nielsen NP Primary Care Provider [phone] Reason for Visit * Reason Onset Date Comments Nurse Triage 08/01/2024 Encounter Details Date Type Department Care Team ([facility] st Contact Info) Description 08/01/2024 Telephone [facility] [address] [place] [address] Vicenta Nielsen NP [address] [place] [address] Nurse Triage Social History Tobacco Use Types Packs/Day Years [...] encounter Miscellaneous Notes * Telephone Encounter - Hilda Maldonado RN - 08/01/2024 11:32 AM EDT Call returned to Bam Wise to triage below. Reports having rash on top of thighs. Seen on 07/24. Per pt rash improves while abx is infusing. But through the night rash becomes warm to touch anditching. Per pt has [facility] coming in every other day for wound care and wound clinic visits. Pt reports has appt with wound clinic next week and [facility] will be coming into the home tomorrow. Pt denies rash being any worse than when seen in office last week. No fever reported. Pt states during visit yesterday by [facility] they did not seem to think that rash was any worse but patient is concerned that it is not healing fast enough . Pt is wanting PCP to consider referring patient to ID to determine if alt tx is needed to help improve or resolve rash as pt is concerned if rash does not improve may need ano ther amputation. Pt offered to seek care at [facility]. Pt declines states will have [facility] call tomorrow with update on what area looks like based on their assessment. Reviewed home care advise, ER precautions and reasons to call back. Reviewed [facility] operating hours and that wait times vary. Forwarded to PCP and team to follow up PRN regarding pt request for ID referral. Protocol Used: Rash or Redness - Localized (Adult) Protocol-Based Disposition: See in Office or Video Visit within 3 Days Override (Final) Disposition: Discuss with PCP and Callback by Nurse Today Override Reason: Already seen and questions Video visit offer not recorded Positive Triage Question: * Localized rash present > 7 days * All higher-acuity triage questions were negative Care Advice Discussed: * Reassurance and Education - Mild Localized Rash * Reasons To Call Back - Rash spreads or becomes worse - You become worse * Telephone Encounter - Polly Vasquez - 08/01/2024 11:29 AM EDT Symptom: Rash or Redness - Widespread Outcome: Schedule a same-day appointment or talk to a nurse or provider today Reason: Caller denied all higher acuity questions The caller accepted this outcome. documented in this encounter Plan of Treatment Not on file documented as of this encounter Visit Diagnoses Not on filedocumented in this encounter Additional Health Concerns Assessment Noted Time PHQ-9 Depression Total Score: 7 07/25/20 24 9:24 AM EDT documented as of this encounter Care Teams Financial Advisor Relationship Specialty Start Date End Date Vicenta Nielsen NP [address] [place] [phone] PCP - General Family Medicine 12/22/23 [employer] 04/29/24 abigail mcneill [employer] Worker[employer] Supervisor 10/18/24 documented as of this encounter
--- OUTSIDE RECORDS SUMMARY | 2024-11-15 12:44 | XMS_ITS | Clinical Summary ---
Author Organization [employer] Address [address] [place] [address] 7 [place] [address] Care Team Providers Care Flooring Installer Name Role Phone Vicenta Nielsen NP Primary Care Provider [phone] Allergies Active Allergy Reactions Criticality Noted Date Comments Bee Pollen 05/07/2023 Bee Venom Anaphylaxis High 12/15/2018 Beeswax Unknown 03/21/2024 Per Johan Cortés Erythromycin Itching 07/04/2019 Iodinated Contrast Media Shortness of breath High 11/20/2022 Iodine 12/15/2018 Medications * This document contains information received from the source organization and may not represent a complete record from that organization. Blood Glucose Monitoring Suppl (Citizengineyle [place] Lite) w/Device kit TEST BLOOD SUGAR FOUR TIMES DAILY 11/21/19 22 Active Continuous Blood Gluc Electro Mechanical Engineer (TeleCIS WirelessStyle Oumar 2 [place]) device USE DIRECTED EVERY DAY 06/11/20 22 Active METHADONE HCL PO Take 115 mg by mouth in the morning. Active Diclofenac Sodium 1 % gelIndications:C hronic pain of both knees,Left hip pain,Chronic right shoulder pain To apply to the affected areas 3 times a day 100 g 1 02/27/20 23 Active Nutritional Supplements (Yared) powderIndication s:Amputation of right great toe (CMS/HCC) 1 packet to dilute in 8 oz of water 2 times a day 545 g 3 05/31/20 23 Active acetaminophen (Tylenol) 325 MG tablet TAKE TWO TABLETS BY MOUTH EVERY FOUR HOURS NEEDED FOR MILD PAIN 05/14/20 23 Active insulin pen needle (Novofine Pen Needle) 32G x 6 mm miscIndications: Type 2 diabetes mellitus without complication, with long-term current use of insulin ([facility]) USE 5 TO 6 TIMES DAILY DIRECTED 150 each 11/01/19 24 Active TRUEplus Lancets 33G miscIndications: Type 2 diabetes mellitus without complication, with long-term current use of insulin ([facility]) TEST BLOOD SUGAR FOUR TIMES DAILY 100 each 11 11/23/19 24 Active Continuous Blood Gluc Sensor (FreeStyle Oumar 2 Sensor) misc USE DIRECTED TO TEST BLOOD SUGAR. CHANGE EVERY 14 DAYS . 2 each 11/23/19 24 Active ipratropium-albu terol (Combivent Respimat) 20-100 MCG/ACT inhalerIndicatio ns:COPD mixed type ([facility]) Inhale 1 puff if needed in the morning, at noon, in the evening, and at bedtime for wheezing. 4 g 2 01/04/20 24 025 Active Multiple Vitamin (Multivitamin) tablet Take 1 tablet by mouth in the morning. 10/20/19 24 Active atorvastatin (Lipitor) 20 MG tablet Take 1 tablet (20 mg) by mouth at bedtime. 90 tablet 3 05/23/20 24 025 Active Blood Pressure Monitoring (Blood Pressure Cuff) misc Use daily as prescribed 1 each 05/23/20 24 Active polyethylene glycol, PEG, 3350 (Glycolax) 17 GM/SCOOP powder MIX 17G (1 CAPFUL) IN 8 OUNCES OF WATER, COFFEE, OR TEA AND TAKE BY MOUTH EVERY DAY FOR 3 DAYS 510 g 1 06/29/20 24 Active FREESTYLE LITE test stripIndications :Type 2 diabetes mellitus without complication, with long-term current use of insulin ([facility]) USE DIRECTED TO TEST BLOOD SUGAR FOUR TIMES DAILY 100 strip 4 07/04/20 24 Active Lactobacillus Probiotic tabletIndication s:Chronic antibiotic suppression Take 1 tablet by mouth 3 times daily. 90 tablet 2 08/21/20 24 Active insulin glargine (Lantus SoloStar) 100 UNIT/ML penIndications:T ype 2 diabetes mellitus with hyperglycemia, with long-term current use of insulin ([facility]) Inject 20 Units under the skin 2 times daily. 15 mL 3 08/21/20 24 Active insulin lispro (HumaLOG) 100 UNIT/ML injection 2-17 units subcutaneous with meals and snacks 15 mL 11 10/16/19 25 Active olmesartan-hydro CHLOROthiazide (Benicar HCT) 40-25 MG tabletIndication s:Hypertension, unspecified type Take 1 tablet by mouth Once per day. 90 tablet 1 11/10/19 25 026 Active verapamil ER (Verelan PM) 100 MG 24 hr capsuleIndicatio ns:Benign hypertension Take 1 capsule (100 mg) by mouth at bedtime. Do not crush or chew. 30 capsule 11 11/23/19 24 025 Discontin ued(Thera py completed ) lisinopril (Zestril) 30 MG tablet Take 1 tablet (30 mg) by mouth Once per day. 90 tablet 2 09/29/20 24 025 Discontin ued(Ineff ective) Active Problems Patient Care Coordination No te Formatting of this note migh t be different from the original. [id number] Abdifatah Muñoz C3/CM Sandy Gimenez RN Problem Noted Date Diagnosed Date Left flank pain 11/10/2024 Assessment & Plan (11/12/2024 7:16 PM EST): Ddx includes msk pain, no hematuria, ultrasound ordered due to hx of renal calculi Peripheral vascular disease 11/10/2024 Coronary artery disease involving [place] heart 0 11/10/2024 Pain of right hip 09/29/2024 Assessment & Plan (09/29/2024 5:26 PM EST): Secondary to amputation Referral to pt Chronic antibiotic suppression 08/21/2024 Long-term current use of methadone for opiate de pendence 08/17/2024 DM2 (diabetes mellitus, type 2) 08/17/2024 Assessment & Plan (11/12/2024 7:17 PM EST): Continue current regimen Dysuria 07/24/2024 Assessment & Plan (07/24/2024 7:05 PM EDT): Will send urine for culture Hypertension 07/24/2024 Dietary counseling 07/24/2024 Assessment & Plan (07/24/2024 7:09 PM EDT): Encouraged ongoing consumption of whole foods Exercise counseling 07/24/2024 Assessment & Plan (07/24/2024 7:10 PM EDT): Activity limited due to recent amputation, but pt is pleased to continue therapy Anxiety 07/24/2024 Assessment & Plan (08/21/2024 10:52 AM EST): During IBH Consult Bam presenting with excessive worry/anxiety, difficulty controlling worry, anxiety/worry associated to restlessness and/or feeling keyed-up/On edge , easily fatigued , difficulty concentrating and/or mind going blank , irritability, muscle tension , and sleep disturbance difficulty falling asleep, and sense of dread , Recurrent panic attacks (abrupt surge of intese jf or discomfort that reaches peak within minutes and during which time the following occur (4 or more) palpitations, sweating, sensation of shortness of breath/smothering, feeling of choking, Chest pain/discomfort, Chills/heat sensation, fear of dying ; for a period of 6-12 mo, for most or all symptoms in the context of family issues, illness or family illness, and housing. Bam reports experiencing same presentation of sxs. Family situation/housing and complicated dynamics with his sister continue to be identified as trigger. Pt reports using coping skills discussed during last appointment; strategies work when sxs are not severe. clinician engaged patient with active/reflective listening. Reviewed and assessed for risk, current stressors and protective factors using open-ended questions. Discussed importance of incorporating grounding techniques into daily routine to decrease anxiety and panic sxs. Referral placed for OP therapy with [facility] in [place]. Provided patient referral letter and agency contact information. Assessment & Plan (07/25/2024 9:46 AM EDT): During IBH Consult Bam presenting with excessive worry/anxiety, difficulty controlling worry, anxiety/worry associated to restlessness and/or feeling keyed-up/On edge , difficulty concentrating and/or mind going blank , and irritability, and sense of dread and Recurrent panic attacks (abrupt surge of intese jf or discomfort that reaches peak within minutes and during which time the following occur (4 or more) palpitations, sweating, sensation of shortness of breath/smothering, feeling of choking, Chest pain/discomfort, Chills/heat sensation, fear of dying; for a period of 0-6 mo, for most or all symptoms in the context of family issues, illness or family illness, and housing. Pt carries a diagnosis for Opioid dependence. Bam reports increase of anxiety symptoms over the last months. He's going through a difficult time in terms of his medical condition (had a toe infection which led to amputation of both legs) and his housing situation (currently living at his sister's house). Pt has experienced panic attacks and states not being able to control them. Positive support received from social context (friends). Lack of family support due to complicated relationship with sister. Pt has a group counselor trough the methadone group with [facility], they meet once a month. clinician engaged patient with active/reflective listening. Reviewed and assessed for risk, current stressors and protective factors using open-ended questions. Discussed importance of incorporating grounding techniques into daily routine to decrease anxiety and panic sxs. Provided information for [facility] in [place] for sooner appointments. Assessment & Plan (07/24/2024 7:13 PM EDT): Pt with significant anxiety, related to home life and serious illnesses, [facility] into meet with patient Panic attacks 07/24/2024 Assessment & Plan (07/25/2024 9:46 AM EDT): During IBH Consult Bam presenting with excessive worry/anxiety, difficulty controlling worry, anxiety/worry associated to restlessness and/or feeling keyed-up/On edge , difficulty concentrating and/or mind going blank , and irritability, and sense of dread and Recurrent panic attacks (abrupt surge of intese jf or discomfort that reaches peak within minutes and during which time the following occur (4 or more) palpitations, sweating, sensation of shortness of breath/smothering, feeling of choking, Chest pain/discomfort, Chills/heat sensation, fear of dying; for a period of 0-6 mo, for most or all symptoms in the context of family issues, illness or family illness, and housing. Pt carries a diagnosis for Opioid dependence. Bam reports increase of anxiety symptoms over the last months. He's going through a difficult time in terms of his medical condition (had a toe infection which led to amputation of both legs) and his housing situation (currently living at his sister's house). Pt has experienced panic attacks and states not being able to control them. Positive support received from social context (friends). Lack of family support due to complicated relationship with sister. Pt has a group counselor trough the methadone group with [facility], they meet once a month. clinician engaged patient with active/reflective listening. Reviewed and assessed for risk, current stressors and protective factors using open-ended questions. Discussed importance of incorporating grounding techniques into daily routine to decrease anxiety and panic sxs. Provided information for [facility] in [place] for sooner appointments. Amputation of right lower extremity below knee 0 05/23/2024 Assessment & Plan (11/12/2024 7:17 PM EST): Referral to pt for bilateral hip pain Assessment & Plan (09/29/2024 5:26 PM EST): Swelling has decreased, getting prosthesis fit, Secondary right hip pain Referral to physical therapy Assessment & Plan (09/06/2024 6:16 PM EST): Stable, Assessment & Plan (05/23/2024 2:54 PM EDT): - status post osteomyelitis, treated with IV vancomycin. - continue stump ulcer care by wound clinic and [facility]. - pt to continue wound dressings with Silvadene every 2-3 days - will need evaluation for right leg prosthesis once right leg is healed, f/u with PCP - needs a transport wheelchair for now - needs to recondition certain areas of the house to be handicap accessible (ramp, bedside commode, bathroom DME, etc.) - needs assistance due to ADLs due to mobility problem at this time, he is living with his sister due to otherwise being homeless so we will f/u with them to see what kind of support they need - housing and apartment applications pending , advised him to f/u with acute care registered nurse Pelvic lymphadenopathy 05/23/2024 Overview (05/23/2024): CT scan abd/pelvis at [facility] on 02/20/24: IMPRESSION: 1. Pelvic lymphadenopathy. There are also mildly prominent nodes in the gastrohepatic ligament, mediastinum, and right hilum. Some of these may be reactive, but the pelvic nodes in particular are more bulky than would be expected for a reactive process and raise the possibility of neoplastic disease. 2. Dependent opacities in the lungs, probably atelectasis, with a small right pleural effusion. Assessment & Plan (05/23/2024 3:01 PM EDT): Seen on CT scan abd/pelvis on 02/20/24. Unclear if related solely to infection of LE (osteomyelitis) vs neoplasm. Patient has fu with Dr. Praveena Quan on Wed05/26/24 PCP to fu Hyperkalemia 05/23/2024 Assessment & Plan (05/23/2024 3:10 PM EDT): Had electrolyte disbalances at the SNF Check lytes and correct prn. Wound infection after surgery 04/08/2024 Assessment & Plan (04/08/2024 1:17 PM EDT): Pt primary concern today is advocacy. I will call treatment team. I also explained there may be limitations to where he can receive his care based on insurance and location of surgical team. Acute blood loss anemia 03/21/2024 Overview (07/20/2024): Last Assessment & Plan: Patient does not receive his care in the [facility] system, and there are limited records, including labs, available for review in Care Everywhere. Hgb over the past 2 weeks ACCOUNT CLERK has ranged from 6.7 to 8.2. Patient has an unknown baseline H&H. Patient underwent TMA of the right foot on February 06, [address] Escalante. This was performed at [facility], and patient was discharged to rehab at [facility] in [place]. Starting on 03/07, patient with increased bleeding from amputation site. He presented to the ED on this date, was seen by podiatry, and given lack of active bleeding and stable H&H, he was DC'd back to rehab. Came back 03/12 with bleeding, however this stopped with elevation and he was again discharged back to [facility], only to return on 03/13. He was admitted to the CDU from 03/13 to 03/14 and received 3 units of blood during that hospitalization. Podiatry felt that wound dehiscence due to use of the extremity was the main contributing factor for his ongoing bleeding. Most recently, patient presented on 03/20 and was evaluated by the surgery team for ongoing bleeding. Brisk bleeding was noted at the time of their evaluation, unsuccessful compression with combat dressings. There was concern for arterial bleed, with 1 vessel tied off by surgery. Podiatry was reengaged, and patient was taken to the OR to address wound dehiscence. Necrotic tissue was resected at that time, several small bleeding vessels were noted and cauterized. He received 3 units of blood this admission, last transfused 03/23/2024. Podiatry has followed patient during admission, and there has been no further signs of bleeding. -Daily dressing changes: dry gauze dressing to the distal incision site wet to dry dressing to the lateral portion of the foot. -Heal touch weight bearing RLE. -Elevate RLE when at rest. -CBC in AM UNLESS patient with evidence of active bleeding; will then order STAT CBC -Von Willebrand Antigen WNL, Factor 8 activity elevated to 199%, and Factor 8 Ristocetin is pending. Patient and family report a history of post-procedural coagulopathies Fibrinogen and aPTT mildly elevated, possibly due to DVT ppx and inflammatory changes post-op -Close follow up with Dr. Escalante in [place]. Appointment scheduled for 04/04/2024 at 2:30 PM Assessment & Plan (07/24/2024 7:08 PM EDT): Trend labs, cbc ordered Dyslipidemia 03/21/2024 Overview (07/20/2024): Last Assessment & Plan: Home meds: simvastatin 40 mg nightly Will continue home medication simvastatin 40 mg nightly. History of endocarditis 03/21/2024 Overview (07/20/2024): Last Assessment & Plan: On discussion with patient, he reports history of MRSA infection in the bone of his right foot, which caused a blood infection, which improved to a heart infection. Patient reports having a procedure that sounds like a GABBY, and reports that this was done months ago. He is unsure if his current antibiotics are treating active endocarditis. He was asked about ID follow-up outpatient, however he reports difficulty getting ambulance rides to his follow up appointments since discharge. Patient afebrile and without leukocytosis on admission. Unclear this was a true diagnosis based on limited records we have for him. Records were requested from OSH but never received. -Continue plan for iv abx as above in osteomyelitis problem Assessment & Plan (07/24/2024 7:10 PM EDT): Secondary to MRSA infection, for which pt is on IV abx Continue History of opioid abuse 03/21/2024 Overview (07/20/2024): Last Assessment & Plan: Home medications: methadone 110 mg daily QTc 455 and 454 on EKGs performed during admission. Patient seen by addiction psych SW this admission. -Continue home methadone 110 mg daily -Patient expresses desire to wean off methadone; defer to methadone clinic on discharge Assessment & Plan (11/12/2024 7:18 PM EST): Tapering methadone out patient, tolerating Assessment & Plan (07/24/2024 7:11 PM EDT): Continue methadone program, reports pain is adequately controlled Osteomyelitis of right foot 03/21/2024 Overview (07/20/2024): Last Assessment & Plan: Home medications: Vancomycin 1000 mg q12 hour Patient with a history of type 2 diabetes who underwent right foot TMA on February 06, 2024. This surgery was performed at [facility]. Patient was ultimately discharged to [facility] for ongoing rehab, and was continued on vancomycin for antibiotics. Patient reports history of MRSA infection, however there are no records from OSH. Vancomycin trough 13.9 on 03/22 and dose increased to 1.25g. Trough on 03/27 AM was elevated to 21.9, and vanco dose decreased. -Continue vancomycin 1 g every 12 hours through 03/29/24 -Next vanco trough is on last day of abx course, 03/29 -Monitor kidney function and LFTs while on vancomycin Type 2 diabetes mellitus wit h hyperglycemia, with long-term current use of insulin 03/21/2024 Overview (07/20/2024): Last Assessment & Plan: Medications: Lantus 30 units nightly, insulin sliding scale HgA1c from 03/22/2024 is 6.0%. Overall, patient's FSBS over the past 72 hours have been <225. -Cardiac diabetic diet -Lantus 30 units nightly -Continue with medium dose sliding scale with 3x daily meals and low-dose ISS nightly Assessment & Plan (09/29/2024 5:27 PM EST): Stable currently Assessment & Plan (09/06/2024 6:16 PM EST): Lantus renewed Monitor for hypoglycemia Assessment & Plan (07/24/2024 7:08 PM EDT): Pt pleased with improvement in sugars, continues to check regularly, labs as ordered below Essential (primary) hypertension 03/21/2024 Overview (08/17/2024): Last Assessment & Plan: Home meds: lisinopril-hydrochlorothiazide 20-12.5 mg daily Verapamil 40 mg q12 hour SBP has been controlled throughout this hospitalization thus far on verapamil alone. -Continue to hold lisinopril and hydrochlorothiazide at this time, consider restarting in future if BP consistently elevated. -Continue Verapamil 40 mg q12 hour with holding parameters Assessment & Plan (11/12/2024 7:16 PM EST): Above goal on lisinopril 30 mg, Has home bp cuff continue measurement Medication adjusted Pt endorsed lle edema, and intermittent palpitations, referral to cardiology Bmp ordered Assessment & Plan (09/29/2024 5:26 PM EST): >>ASSESSMENT AND PLAN FOR HTN (HYPERTENSION) WRITTEN ON 09/06/2024 6:16 PM BY VICENTA NIELSEN NP Above goal today, generally at goal Monitor Assessment & Plan (09/29/2024 5:26 PM EST): >>ASSESSMENT AND PLAN FOR HTN (HYPERTENSION) WRITTEN ON 09/29/2024 5:25 PM BY VICENTA NIELSEN NP Increase lisinopril to 30 mg Future bmp ordered Anemia 01/04/2024 Assessment & Plan (11/12/2024 7:17 PM EST): Cbc ordered Assessment & Plan (05/23/2024 3:09 PM EDT): Likely of a chronic disease (osteomyelitis), he was transfused PRBC with hb of 7 Check Hb Assessment & Plan (01/29/2024 4:21 PM EDT): Reports hx of , not certain type , labs ordered COPD mixed type 01/04/2024 Assessment & Plan (01/29/2024 4:20 PM EDT): Endorses increased wheezing and sob, endorses tachycardia from albuterol, Trial combivent Dyspnea on exertion 01/04/2024 Assessment & Plan (01/29/2024 4:21 PM EDT): Multifactorial, denies excessive daytime fatigue, bnp ordered, consider echo, Right elbow pain 01/04/2024 Assessment & Plan (01/29/2024 4:22 PM EDT): X-ray ordered UTI (urinary tract infection) 08/05/2023 Assessment & Plan (08/05/2023 3:11 PM EDT): Drink plenty of water UA and culture (patient will be contacted if antibiotic needs to be rotated) ciprofloxacin 500mg BID Sepsis 06/25/2023 Assessment & Plan (07/24/2024 7:09 PM EDT): PICC in right arm, continue iv antbiotics Cellulitis 06/25/2023 Assessment & Plan (09/06/2024 6:17 PM EST): PICC , stable with iv therapy at home No acute concerns Assessment & Plan (01/29/2024 4:22 PM EDT): Chronic venous stasis, in care with wound team, continue current abx Osteomyelitis of toe 05/17/2023 Osteomyelitis 02/02/2023 Benign hypertension 07/20/2022 Assessment & Plan (05/23/2024 12:57 PM EDT): Controlled. Compliant w/meds Continue lisinopril + Verapamil same dose Counseled re low salt diet/increase moderate physical activity. Check home BP BIW and prn CP/HORTON/MESA Non smoking patient. Assessment & Plan (01/29/2024 4:24 PM EDT): Above goal today, continue current regimen, short term follow up Asthma 10/07/2020 Chronic type B viral hepatitis 07/02/2016 Opioid dependence 07/02/2016 Assessment & Plan (04/08/2024 1:18 PM EDT): Pt is currently on daily methadone, which requires specialty care. Will make efforts to coordinate care and transportation per pt request. Assessment & Plan (01/29/2024 4:22 PM EDT): On methadone currently reports difficulty tapering due to surgical pain Resolved Problems Problem Noted Date Diagnosed Date Resolved Date Type 2 diabetes mellitus without complication 07/02/20 16 07/24/2024 Assessment & Plan (05/23/2024 1:08 PM EDT): Controlled. A1c is at goal. F/u with endocrinology Continue Latus 30 units + Humalog sliding scale Counseled re more frequent low calorie/carb meals. Check fgstk 3 daily Encouraged physical activity as tolerated. FU with PCP as scheduled Encounters * This document contains information received from the source organization and may not represent a complete record from that organization. Date Type Department Care Team Description 11/10/2024 1:45 PM EST Office Visit [facility] [address] [place] [id number] Vicenta Nielsen NP Hypertension, unspecified type (Primary Dx); Type 2 diabetes mellitus with hyperglycemia, with long-term current use of insulin ([facility]); Left flank pain; Below-knee amputation of right lower extremity, initial encounter ([facility]); Peripheral vascular disease ([facility]); 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, unspecified vessel or lesion type ([facility]); Iron deficiency anemia due to chronic blood loss; Palpitations; Essential (primary) hypertension; Type 2 diabetes mellitus with other circulatory complication, with long-term current use of insulin ([facility]); History of opioid abuse ([facility]) 10/31/2024 Patient Outreach [facility] [address] [place] [phone] Vicenta Nielsen NP Care Coordination ([facility] outreach for SDOH PT-1 and food needs-referral completed /) 10/31/2024 Telephone [facility] [address] [place] [id number] Ronna Juarez MA Chart Prep 10/31/[address] [id number] Vicenta Nielsen NP Lab Orders 10/31/[address] [address] Vicenta Nielsen NP PT-1 10/31/[address] [address] Vicenta Nielsen NP Referral 10/26/2024 Orders Only [facility] [address] [place] [phone] Kimberly Bloom NP Pain of right hip (Primary Dx) 10/24/[address] [address] Vicenta Nielsen NP Referral 10/18/2024 Patient Outreach [address] [address] Vicenta Nielsen NP Care Coordination (ICP care plan) 10/16/[address] [address] David Pate MA DME from [facility] 10/12/[address] [address] Vicenta Nielsen NP FYI 10/10/[address] [address] Vicenta Nielsen NP Medication Question 10/09/2024 Refill [facility] [address] [place] [address] Valery Berrios MD 09/29/2024 11:30 AM EST Office Visit [address] [address] Vicenta Nielsen NP Resistant hypertension (Primary Dx); Type 2 diabetes mellitus with hyperglycemia, with long-term current use of insulin ([facility]); Pain of right hip; Dental caries; Below-knee amputation of right lower extremity, subsequent encounter ([facility]) 09/29/2024 Travel 09/19/[address] [address] Vicenta Nielsen NP callback 09/15/2024 Orders Only GENERIC EXTERNAL DATA DEPARTMENT Provider, Generic External Data 09/13/[address] [address] Vicenta Nielsen NP Durable Medical Equipment 08/30/[address] [address] Breanna John MA DME walker with seat [facility] 08/25/[address] [address] Vicenta Nielsen NP Care Coordination ([employer] Orders) 08/23/[address] [address] Breanna John MA DME walker with seat [facility] 08/21/2024 10:15 AM EST Office Visit [facility] [address] [place] [address] Vicenta Nielsen NP Hypertension, unspecified type (Primary Dx); Below-knee amputation of right lower extremity, subsequent encounter ([facility]); Type 2 diabetes mellitus with hyperglycemia, with long-term current use of insulin ([facility]); Cellulitis of lower extremity, unspecified laterality; Chronic antibiotic suppression 08/21/2024 Travel 08/18/2024 Refill [facility] [address] [place] [address] Vicenta Nielsen NP 08/18/[address] [phone] Vicenta Nielsen NP Durable Medical Equipment 08/17/2024 Telephone [facility] [address] [place], [place] [phone] Christal Steel MA CHART PREP from Last 3 Months Immunizations Name Administration Dates Next Due Influenza Injectable Quadriv alant Preservative Free IIV4 MDCK 06/28/2023 Influenza injectable quadriv alent IIV4 with preservative 07/02/2016 Influenza injectable quadriv alent preservative free 07/20/2022,07/04/2019,06/09/2018 Influenza, seasonal, injecta ble, preservative free 05/26/2017 Pfizer Covid-19 Vaccine 12+ 03/04/2021, Pneumococcal Conjugate PCV 20 06/28/2023 Tdap 07/04/2019 Zoster, Recombinant 06/28/2023,04/20/2023 Social History Tobacco Use Types Packs/Day Years Used Date Smoking Tobacco: Former Cigarettes Passive Smoke Exposure: Current Smokeless Tobacco: Never Tobacco Cessation:Counseling Given: Not Answered Alcohol Use Standard Drinks/Week Comments Never 0 [...] Orientation Straight 08/03/2022 10 :17 AM EDT Last Filed Vital Signs Vital Sign Reading [...] Mass Index 39.13 11/10/2024 2:08 PM EST Plan of Treatment Health Maintenance Due Date Last Done Comments CT Colonography 1965 Colonoscopy 1965 Colorectal Cancer Screening 1965 FIT DNA/Cologuard 1965 FIT 1965 FOBT 1965 HIV Screening 1965 Sigmoidoscopy 1965 Diabetes: Foot Exam 1975 Eye Exam 1975 Hepatitis C Screening 1983 Hepatitis A Vaccines (1 of 2 - Risk 2-dose series) 1984 Hepatitis B Vaccines (1 of 3 - 19+ 3-dose series) 1984 COVID-19 Vaccine ( - season) 2024 12/25/2022, 10/20/2021, 03/04/2021, Additional history exists Influenza Vaccine (#1) 2024 , 07/20/2022, 07/04/2019, Additional history exists SDOH Screening 12/16/2024 12/17/2023 Diabetes: Hemoglobin A1C 02/07/2025 025, 05/23/2024, 03/31/2024, Additional history exists Diabetes: Urine Protein Screening 06/02/2025 06/02/2024, 12/31/2022, 11/28/2020 Lipid Panel 06/02/2025 06/02/2024, 12/31/2022 Depression Screening 07/25/2025 07/25/2024, 07/25/20 Alcohol/Substance Use Screening 09/29/2025 09/29/2024 Tobacco Screening 11/10/2025 11/10/2024 DTaP/Tdap/Td Vaccines (2 - Td or Tdap) 07/04/2029 07/04/2019 RSV Patients and Patients Aged 60 years or older (1 - 1-dose 75+ series) 2040 Pneumococcal Vaccine: 50+ Years Completed 06/28/2023 Zoster Vaccines Completed 06/28/2023, 04/20/2023 HIB Vaccines Aged Out No longer eligi ble based on patient's age to complete this topic HPV Vaccines Aged Out No longer eligi ble based on patient's age to complete this topic IPV Vaccines Aged Out No longer eligi ble based on patient's age to complete this topic Meningococcal Vaccine Aged Out No rose zeina eligible based on patient's age to complete this topic RSV under 20 months Aged Out No longe r eligible based on patient's age to complete this topic Rotavirus Vaccines Aged Out No longer eligible based on patient's age to complete this topic Procedures Procedure Name Priority Date/Time Associated Diagnosis Comments CBC WITH AUTO DIFFERENTIAL Routine 11/15/2024 11:01 AM EST Type 2 diabetes mellitus with hyperglycemia, with long-term current use of insulin ([facility]) 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, unspecified vessel or lesion type ([facility]) POCT GLYCATED HEMOGLOBIN, TOTAL Routine 11/10/2024 2:12 PM EST Type 2 diabetes mellitus with hyperglycemia, with long-term current use of insulin ([facility]) POCT GLUCOSE Routine 11/10/2024 2:10 PM EST Type 2 diabetes mellitus with hyperglycemia, with long-term current use of insulin ([facility]) POCT GLUCOSE Routine 09/29/2024 12:19 PM EST Type 2 diabetes mellitus with hyperglycemia, with long-term current use of insulin ([facility]) GLUCOSE, WHOLE BLOOD Routine 09/15/2024 10:19 AM EST POCT GLUCOSE Routine 08/21/2024 10:28 AM EST Type 2 diabetes mellitus with hyperglycemia, with long-term current use of insulin ([facility]) LIPID PANEL, STANDARD Routine 06/02/2024 11:59 AM EDT ALBUMIN, RANDOM URINE W/CREATININE Routine 06/02/2024 11:49 AM EDT from Last 3 Months or Most Recently Relevant to Health Maintenance Results * (ABNORMAL) CBC auto differential (11/15/2024 11:01 AM EST) White Blood Count 8.6 4.8 - 10.8 X10*3/uL [facility] Red Blood Count 3.97(L) 4.60 - 5.80 X10*6/uL [facility] Hemoglobin 11.1(L) 14.0 - 18.0 g/dl [facility] Hematocrit 33.5(L) 42.0 - 52.0 % [facility] Mean Corpuscular Volume 84.4 80.0 - 98.0 fL [facility] Mean Corpuscular Hemoglobin 28.0 27.0 - 33.0 pg [facility] Mean Corpuscular HGB Conc 33.1 31.0 - 36.0 g/dl [facility] Red Cell Distribution Width 13.7 11.0 - 16.0 % [facility] Platelet Count 239 160 - 400 X10*3/uL [facility] Mean Platelet Volume 10.7 9.4 - 12.4 fL [facility] Neutrophils Percent Auto 73.0 45 - 73 % [facility] Imm Gran Pct Auto 0.3 0.0 - 0.4 % [facility] Lymphocytes Percent Auto 15.2(L) 20 - 40 % [facility] Monocytes Percent Auto 9.0 2 - 11 % [facility] Eosinophils Percent Auto 1.7 0 - 4 % [facility] Basophils Percent Auto 0.8 0 - 2 % [facility] NRBC Pct Auto 0.0 0.0 - 0.2 /100WBC [facility] Neutrophils Absolute Auto 6.3 2.0 - 8.3 x10*3/uL [facility] Imm Gran Abs Auto 0.03 0.00 - 0.03 X10*3/uL [facility] Lymphocytes Absolute Auto 1.3 1.2 - 4.9 X10*3/uL [facility] Monocytes Absolute Auto 0.8 0.1 - 1.2 X10*3/uL [facility] Eosinophils Absolute Auto 0.2 0.0 - 0.4 X10*3/uL [facility] Basophils Absolute Auto 0.1 0.0 - 0.2 X10*3/uL [facility] NRBC Abs Auto 0.000 0.0 - 0.012 X10*3/uL [facility] Blood Venous blood specimen / Unknown 11/15/2024 11:01 AM EST 11/15/2024 11:10 AM EST us Vicenta Nielsen BAGGAGE SECURITY CHECKER LAB BLOOD ORDERABLES Final Resul t [facility] [address] [place] [phone] [phone] * (ABNORMAL) POCT HGB A1C (11/10/2024 2:12 PM EST) [facility] Hemoglobin A1C 7.0(A) 4.0 - 6.0 % QC Media Lot # [id number] Lot# Expiration Date Blood 11/10/2024 2:12 PM EST Vicenta Nielsen BAGGAGE SECURITY CHECKER POINT OF CARE TEST ENTER/EDIT OR DERABLES Final Result * POCT Glucose (11/10/2024 2:10 PM EST) Only the most recent of3 resultswithin the time period is included. [facility] Glucose Blood, POC 170 60 - 200 mg/dL QC Media Lot # [id number] Lot# Expiration Date Blood Capillary blood specimen / Unknown 11/10/2024 2:10 PM EST Vicenta Nielsen BAGGAGE SECURITY CHECKER POINT OF CARE TEST ENTER/EDIT OR DERABLES Final Result * (ABNORMAL) Glucose, Whole Blood (09/15/2024 10:19 AM EST) [facility] Glucose, Whole Blood 137(H) 60 - 115 mg/dL [facility] Comment:METER #: [id number] Testing performed in the Endocrinology Department [address] , [address], [facility]. 09/15/2024 10:1 9 AM EST 09/15/2024 10:22 AM EST Generic External Data Provider LAB BLOOD ORDERAB LES Final Result [facility] [address] [place] [address] [phone] * (ABNORMAL) Lipid Panel, Standard (06/02/2024 11:59 AM EDT) Triglycerides 61 <150 mg/dL [facility] Comment:Desirable Triglyceri de: less than 150 mg/dLBorderline High Triglyceride 150-199 mg/dLHigh Triglyceride: 200-499 mg/dLVery High Triglyceride: greater than or equal to 5OO mg/dL Cholesterol 85 <200 mg/dL [facility] Comment:Desirable Cholestero l: less than 200 mg/dLBorderline High Cholesterol: 200-239 mg/dLHigh Cholesterol: greater than 239 mg/dL LDL Cholesterol Calculated 43 <100 mg/dL [facility] Comment:Desirable LDL: less than 100 mg/dLNear Optimal/Above Optimal LDL: 110- 129 mg/dLBorderline High LDL: 130-159 mg/dLHigh LDL: 160-189 mg/dLVery High LDL: greater than or equal to 190 mg/dL HDL Cholesterol 30(L) >40 mg/dL [facility] Comment:Desirable HDL: great er than 40 mg/dL Note: This HDL assay may give artificially low results in patients with liver disease. 06/02/2024 11:5 9 AM EDT 06/02/2024 11:59 AM EDT us Generic External Data Provider LAB BLOOD ORDERAB LES Final Result [facility] [address] [place] [phone] * Albumin, Random Urine W/Creatinine (06/02/2024 11:49 AM EDT) Creatinine, Urine 75.26 mg/dL [facility] Microalbumin Urine 10.0 mg/L [facility] Microalbum Creatinine Ratio Ur 13.2 <30 ug/mg cr [facility] Comment:Albumin/Creatinine R atio Reference Ranges: Normal: < 30 ug/mg creatinine Microalbuminuria: 30 - 300 ug/mg creatinineClinical Albuminuria: > 300 ug/mg creatinine 06/02/2024 11:4 9 AM EDT 06/02/2024 1:11 PM EDT us Generic External Data Provider LAB URINE ORDERAB LES Final Result [facility] [address] [place] [address] [phone] from Last 3 Months or Most Recently Relevant to Health Maintenance [facility] C[employer] Care Teams Flooring Installer Relationship Specialty Start Date End Date Vicenta Nielsen NP [address] [place] [address] PCP - General Family Medicine 12/22/23 [employer] 04/29/24 abigail mcneill Welding Machine TenderTelegraphic Typewriter Operator 10/18/24
--- OUTSIDE RECORDS SUMMARY | 2024-11-15 12:44 | XMS_ITS | Encounter Summary ---
Author Organization [facility] Address [address] [place] [address] Care Team Providers Care Harness Placer Name Role Phone Vicenta Nielsen LEAD BLENDER Primary Care Provider [phone] Encounter Details Date Type Department Care Team (Late st Contact Info) Description 08/21/2024 Lab Requisition [facility] - Main Lab [address] [facility] [place] [address] Steven Naik MD [address] [place] [phone] Cellulitis, unspecified Social History Tobacco Use Types [...] Diagnosis Comments CBC WITH AUTO DIFFERENTIAL Routine 08/21/2024 12:00 AM EST Cellulitis, unspecified CBC AND DIFFERENTIAL Routine 08/21/2024 12:00 AM EST Cellulitis, unspecified CREATINE KINASE Routine 08/21/2024 12:00 AM EST Cellulitis, unspecified COMPREHENSIVE METABOLIC PANEL Routine 08/21/2024 12:00 AM EST Cellulitis, unspecified documented in this encounter Results * (ABNORMAL) CBC auto differential (08/21/2024 12:00 AM EST) [facility] Signature WBC 6.4 4.8 - 10.8 K/mcL LAB HEMETOLOGY METHOD 08/21/2024 8:22 PM [facility] RBC 3.90(L) 4.50 - 5.50 M/mcL LAB HEMETOLOGY METHOD 08/21/2024 8:22 PM [facility] Hemoglobin 10.3(L) 13.5 - 17.5 g/dL LAB HEMETOLOGY METHOD 08/21/2024 8:22 PM [facility] Hematocrit 32.4(L) 42.0 - 54.0 % LAB HEMETOLOGY METHOD 08/21/2024 8:22 PM [facility] MCV 83.7 79.0 - 98.0 FL LAB HEMETOLOGY METHOD 08/21/2024 8:22 PM [facility] MCH 26.6(L) 27.0 - 32.0 pcg LAB HEMETOLOGY METHOD 08/21/2024 8:22 PM [facility] MCHC 31.8(L) 32.0 - 37.0 g/dL LAB HEMETOLOGY METHOD 08/21/2024 8:22 PM [facility] RDW 14.9 11.0 - 15.0 % LAB HEMETOLOGY METHOD 08/21/2024 8:22 PM [facility] Platelets 208 130 - 400 K/mcL LAB HEMETOLOGY METHOD 08/21/2024 8:22 PM [facility] MPV 11.8(H) 7.0 - 11.0 FL LAB HEMETOLOGY METHOD 08/21/2024 8:22 PM [facility] NRBC 0.0 <1.0 % LAB HEMETOLOGY METHOD 08/21/2024 8:22 PM [facility] NRBC Absolute 0.00 <0.10 K/mcL LAB HEMETOLOGY METHOD 08/21/2024 8:22 PM [facility] Neutrophils Relative 66.3 % LAB HEMETOLOGY METHOD 08/21/2024 8:22 PM [facility] Lymphocytes Relative 21.1 % LAB HEMETOLOGY METHOD 08/21/2024 8:22 PM [facility] Monocytes Relative 9.8 % LAB HEMETOLOGY METHOD 08/21/2024 8:22 PM [facility] Eosinophils Relative 2.0 % LAB HEMETOLOGY METHOD 08/21/2024 8:22 PM [facility] Basophils Relative 0.5 % LAB HEMETOLOGY METHOD 08/21/2024 8:22 PM [facility] Immature Granulocytes Relative 0.3 % LAB HEMETOLOGY METHOD 08/21/2024 8:22 PM [facility] Neutrophils Absolute 4.24 1.50 - 7.00 K/mcL LAB HEMETOLOGY METHOD 08/21/2024 8:22 PM [facility] Lymphocytes Absolute 1.35 1.00 - 5.00 K/mcL LAB HEMETOLOGY METHOD 08/21/2024 8:22 PM [facility] Monocytes Absolute 0.63 0.20 - 1.00 K/mcL LAB HEMETOLOGY METHOD 08/21/2024 8:22 PM [facility] Eosinophils Absolute 0.13 0.00 - 0.50 K/mcL LAB HEMETOLOGY METHOD 08/21/2024 8:22 PM [facility] Basophils Absolute 0.03 0.00 - 0.20 K/mcL LAB HEMETOLOGY METHOD 08/21/2024 8:22 PM [facility] Immature Granulocytes Absolute 0.02 0.00 - 0.03 K/mcL LAB HEMETOLOGY METHOD 08/21/2024 8:22 PM [facility] Blood Venous blood specimen / Unknown 08/21/2024 08/21/2024 8:09 PM EST Steven Naik MD LAB BLOOD ORDERABLES Final Re sult Performing Organization Address [facility]/ZIP Co de Phone Number [facility] [address] [place] [address], [place] [phone] * Creatine kinase (08/21/2024 12:00 AM EST) Pathologist [facility] Total CK 54 22 - 269 unit/L LAB CHEMISTRY METHOD 08/21/2024 8:29 PM [facility] Blood Venous blood specimen / Unknown 08/21/2024 08/21/2024 8:09 PM EST Steven Naik MD LAB BLOOD ORDERABLES Final Re sult Performing Organization Address [facility]/ZIP Co de Phone Number [facility] [address] [place] [address], [place] [phone] * (ABNORMAL) Comprehensive metabolic panel (08/21/2024 12:00 AM EST) [facility] Sodium 138 133 - 145 mmol/L LAB CHEMISTRY METHOD 08/21/2024 8:29 PM [facility] Potassium 4.5 3.5 - 5.5 mmol/L LAB CHEMISTRY METHOD 08/21/2024 8:29 PM [facility] Chloride 105 96 - 110 mmol/L LAB CHEMISTRY METHOD 08/21/2024 8:29 PM [facility] CO2 28 21 - 32 mmol/L LAB CHEMISTRY METHOD 08/21/2024 8:29 PM [facility] Anion Gap 5 3 - 11 LAB CHEMISTRY METHOD 08/21/2024 8:29 PM [facility] Glucose 130(H) 70 - 100 mg/dL LAB CHEMISTRY METHOD 08/21/2024 8:29 PM [facility] BUN 28(H) 5 - 25 mg/dL LAB CHEMISTRY METHOD 08/21/2024 8:29 PM [facility] Creatinine 1.02 0.70 - 1.30 mg/dL LAB CHEMISTRY METHOD 08/21/2024 8:29 PM [facility] eGFR 85 >=60 mL/min/1. 73m2 LAB CHEMISTRY METHOD 08/21/2024 8:29 PM [facility] Comment:Calculation based on the??Chronic Kidney Disease Epidemiology Collaboration (CKD-EPI) equation refit??without adjustment for race. BUN/Creatinine Ratio 27.5 LAB CHEMISTRY METHOD 08/21/2024 8:29 PM [facility] Calcium 9.4 8.5 - 10.5 mg/dL LAB CHEMISTRY METHOD 08/21/2024 8:29 PM [facility] AST (SGOT) 15 10 - 42 unit/L LAB CHEMISTRY METHOD 08/21/2024 8:29 PM [facility] ALT (SGPT) 19 10 - 60 unit/L LAB CHEMISTRY METHOD 08/21/2024 8:29 PM [facility] Alkaline Phosphatase 90 42 - 121 unit/L LAB CHEMISTRY METHOD 08/21/2024 8:29 PM [facility] Total Protein 7.6 6.0 - 8.0 g/dL LAB CHEMISTRY METHOD 08/21/2024 8:29 PM [facility] Albumin 3.9 3.2 - 5.0 g/dL LAB CHEMISTRY METHOD 08/21/2024 8:29 PM [facility] Total Bilirubin 0.3 0.0 - 1.4 mg/dL LAB CHEMISTRY METHOD 08/21/2024 8:29 PM [facility] Blood Venous blood specimen / Unknown 08/21/2024 08/21/2024 8:09 PM EST us Steven Mlapah MD LAB BLOOD ORDERABLES Final Re sult [email or web address] [address] [place] [address], documented in this encounter Visit Diagnoses Diagnosis Cellulitis, unspecified documented in this encounter Care Teams Harness Placer Relationship Specialty Start Date End Date Vicenta Nielsen FNP [address] [place] [phone] PCP - General 05/26/24 documented as of this encounter
[2024-11-15 12:45] LABS: TSH reflex Free T4 1.53 uIU/mL (0.32-4.0)
== END 2024-11-15 10:56 | disposition home or self-care (01) ==
LOC: HO.LAB 10:55
PROVIDERS: PCP Nurse Practitioner Family; Visit Provider Nurse Practitioner Family
DX: E11.65 Type 2 diabetes mellitus with hyperglycemia (principal); Z79.4 Long term (current) use of insulin; I25.118 Atherosclerotic heart disease of native coronary artery with other forms of angina pectoris; R00.2 Palpitations; I10 Essential (primary) hypertension; D50.0 Iron deficiency anemia secondary to blood loss (chronic)
CPT/HCPCS: 36415; 80053; 83540; 84443; 85025

== ENCOUNTER 2024-12-05 15:10 | Outpatient (REF) | payer MEDICAID, SELFPAY ==
--- NOTE | ~2024-12-05 | US_ITS ---
CLINICAL HISTORY: hx of stones, left flank pain, no hematuria US renal Comparison: None Findings: Right kidney 12.3 cm length. No significant focal abnormality. 9 mm midpole cyst noted. Left kidney 12.8 cm length. No significant focal abnormality. 1.5 cm upper pole cyst with calcified wall. No bilateral hydronephrosis. Normal bilateral renal echogenicity. Impression: No significant abnormalities. This document has been electronically signed by: Alejandro Pérez MD on 12/06/2024 23:46:59
--- OUTSIDE RECORDS SUMMARY | 2024-12-05 19:12 | XMS_ITS | Encounter Summary ---
Author Organization [facility] Address [address] [place] [address] Care Team Providers Care Fruit Rancher Name Role Phone Vicenta Nielsen Primary Care Provider [phone] Encounter Details Date Type Department Care Team Description 05/30/2024 Social Work [facility] Oncology Services [address] [place] [address] Claude Resendiz, [facility] Social History Tobacco Use Types Packs/Day Years [...] on filedocumented in this encounter Care Teams Fruit Rancher Relationship Specialty Start Date End Date Vicenta Nielsen [address] [place] [phone] PCP - General Family Medicine 05/26/24 documented as of this encounter
--- OUTSIDE RECORDS SUMMARY | 2024-12-05 19:12 | XMS_ITS | Clinical Summary ---
Author Organization [facility] Address [address] [place] [address] Care Team Providers Care Arts Therapist Name Role Phone Vicenta Nielsen Primary Care Provider [phone] Allergies Active Allergy Reactions Criticality Noted Date [...] age to complete this topic Care Teams Arts Therapist Relationship Specialty Start Date End Date Vicenta Nielsen [address] [place] [phone] PCP - General Family Medicine 05/26/24
--- OUTSIDE RECORDS SUMMARY | 2024-12-05 19:12 | XMS_ITS | Encounter Summary ---
Author Organization [employer] Address [address] [place] [address] [address] [place] [address] Care Team Providers Care Pipe Stripper Name Role Phone Valery Berrios MD Primary Care Provider [phone] Vicenta Nielsen NP Primary Care Provider [phone] Reason for Visit * Reason Onset Date Comments PT1 07/21/2023 Encounter Details Date Type Department Care Team ([facility] st Contact Info) Description 07/21/2023 Telephone [facility] [address] [place] [address] Valery Berrios MD [address] [place] [address] PT1 Social History Tobacco Use Types Packs/Day Years Used Date Smoking Tobacco: Every Day Cigarettes Smokeless Tobacco: Never Depression Answer Date Recorded Patient Health Questionnaire-9 Score 0 10/20/2022 Housing Stability Answer Date Recorded What is your housing situation today? I do not have housing (Staying with others, in a hotel, in a halfway, living outside on the street, on a [...] - 07/21/2023 2:49 PM EDT See [facility] with ICP requesting PT1 for pt Date: 08/11 Time: 3:45 pm Visits: n/a Address: [address] [place] [address] Facility: [facility], Dr. Kimmy Vuong [facility] Chair: n/a Wood Turning Lathe Operator Needed: no Pick-up location confirmed: [address] [place] [address] documented in this encounter Plan of Treatment Not on file documented as of this encounter Visit Diagnoses Not on filedocumented in this encounter Additional Health Concerns Assessment Noted Time PHQ-9 Depression Total Score: 0 10/20/19 23 2:41 PM EST documented as of this encounter Care Teams Pipe Stripper Relationship Specialty Start Date End Date Valery Berrios MD [address] [place] [phone] PCP - General Internal Medicine 12/01/18 12/21/23 Vicenta Nielsen NP [address] [place] [phone] PCP - General Family Medicine 12/22/23 [employer] 04/29/24 abigail mcneill Continuous Washer OperatorClient Support Analyst 10/18/24 documented as of this encounter
--- OUTSIDE RECORDS SUMMARY | 2024-12-05 19:12 | XMS_ITS | Encounter Summary ---
Author Organization [employer] Address [address] [place] [address] [place] [address] Care Team Providers Care Surg Tech Name Role Phone Valery Berrios MD Primary Care Provider [phone] Vicenta Nielsen NP Primary Care Provider [phone] Encounter Details Date Type Department Care Team ([facility] st Contact Info) Description 10/30/2022 Abstract [facility]EDS [address] [place] [address] Valery Berrios MD [address] [place] [address] Social History Tobacco Use Types Packs/Day Years [...] documented as of this encounter Care Teams Surg Tech Relationship Specialty Start Date End Date Valery Berrios MD [address] [place] [phone] PCP - General Internal Medicine 12/01/18 12/21/23 Vicenta Nielsen NP [address] [place] [phone] PCP - General Family Medicine 12/22/23 [employer] 04/29/24 abigail mcneill Burner TechnicianServices Coordinator 10/18/24 documented as of this encounter
--- OUTSIDE RECORDS SUMMARY | 2024-12-05 19:12 | XMS_ITS | Encounter Summary ---
Author Organization [employer] Address [address] [place] [address] 7 [place] [address] Care Team Providers Care Cylinder Sander Operator Name Role Phone Vicenta Nielsen NP Primary Care Provider [phone] Reason for Visit * Reason Onset Date Comments Med Refill 12/01/2024 Encounter Details Date Type Department Care Team (Late st Contact Info) Description 12/01/2024 Refill [facility] [address] [place] [address] Vicenta Nielsen NP [address] [place] [address] Type 2 diabetes mellitus without complication, with long-term current use of insulin ([facility]) Social History Tobacco Use Types Packs/Day Years [...] encounter Miscellaneous Notes * Telephone Encounter - Jayde Dixon LPN - 12/01/2024 1:04 PM EST PCP VAC. Last seen 11/10/24. * Telephone Encounter - Jacobo Ross - 12/01/2024 12:04 PM EST TC from pt requesting medication refill. Medications needing refill : insulin pen needle (Novofine Pen Needle) 32G x 6 mm misc To be sent to: [facility] - [place], [place] - [address] [place] [address] documented in this encounter Plan of Treatment Not on file documented as of this encounter Visit Diagnoses Diagnosis Type 2 diabetes mellitus without complication, with long-term current use of insulin ([facility]) documented in this encounter Additional Health Concerns Assessment Noted Time PHQ-9 Depression Total Score: 7 07/25/20 24 9:24 AM EDT documented as of this encounter Care Teams Cylinder Sander Operator Relationship Specialty Start Date End Date Vicenta Nielsen NP [address] [place] [address] PCP - General Family Medicine 12/22/23 [employer] 04/29/24 abigail [email or web address] Semi Conductor AssemblerPinion Polisher 10/18/24 documented as of this encounter
--- OUTSIDE RECORDS SUMMARY | 2024-12-05 19:12 | XMS_ITS | Encounter Summary ---
Author Organization [employer] Address [address] [place] [address] 7t [place] [address] Care Team Providers Care Jr. Java Developer Name Role Phone Vicenta Nielsen NP Primary Care Provider [phone] Reason for Visit * Reason Onset Date Comments Durable Medical Equipment 12/04/2024 Encounter Details Date Type Department Care Team (Late st Contact Info) Description 12/04/2024 Telephone [facility] [address] [place] [address] Vicenta Nielsen NP [address] [place] [address] Durable Medical Equipment Social History Tobacco Use [...] encounter Miscellaneous Notes * Telephone Encounter - Federica Keita - 12/04/2024 3:06 PM EST DME RX for Compression stockings generated and placed on providers desk for signature. * Telephone Encounter - Federica Keita - 12/04/2024 3:06 PM EST ----- Message from Vicenta Nielsen sent at 11/30/2024 5:48 PM EST ----- Yes please thank you ----- Message ----- From: Federica Keita Sent: 11/13/2024 11:48 AM EST To: JUSTINO Canales, Unfortunately, [employer] does not cover 20-30. Please let me know if wish to proceed with 15-20 mmHg. Thank you ----- Message ----- From: Vicenta Nielsen NP Sent: 11/10/2024 2:36 PM EST To: Paty Varela Specialist Blue Team Compression stockings, thigh high 20-30 mmgm left lower extremity documented in this encounter Plan of Treatment Not on file documented as of this encounter Visit Diagnoses Not on filedocumented in this encounter Additional Health Concerns Assessment Noted Time PHQ-9 Depression Total Score: 7 07/25/20 24 9:24 AM EDT documented as of this encounter Care Teams Jr. Java Developer Relationship Specialty Start Date End Date Vicenta Nielsen NP [address] [place] [address] PCP - General Family Medicine 12/22/23 [employer] 04/29/24 abigail [email or web address] Supervisor TumblersPurchasing Officer 10/18/24 documented as of this encounter
--- OUTSIDE RECORDS SUMMARY | 2024-12-05 19:12 | XMS_ITS | Encounter Summary ---
Author Organization [employer] Address [address] [place] [address] 7 [place] [address] Care Team Providers Care Fire Safety Director Name Role Phone Vicenta Nielsen NP Primary Care Provider [phone] Reason for Visit * Reason Comments Med Refill Encounter Details Date Type Department Care Team ([facility] st Contact Info) Description 02/04/2024 Refill [facility] CHC MED & PEDS [address] [place] [address] Valery Berrios MD [address] [place] [address] Type 2 diabetes mellitus without complication, with long-term current use of insulin ([facility]) Social History Tobacco Use Types [...] complication, with long-term current use of insulin ([facility]) documented in this encounter Additional Health Concerns Assessment Noted Time PHQ-9 Depression Total Score: 5 01/04/20 10:57 AM EDT documented as of this encounter Care Teams Fire Safety Director Relationship Specialty Start Date End Date Vicenta Nielsen NP [address] [place] [address] PCP - General Family Medicine 12/22/23 [employer] 04/29/24 abigail [email or web address] Brazer Crawler TorchDipper Operator 10/18/24 documented as of this encounter
--- OUTSIDE RECORDS SUMMARY | 2024-12-05 19:12 | XMS_ITS | Encounter Summary ---
Author Organization [employer] Address [address] [place] [address] 7 [place] [address] Care Team Providers Care Peanut Sheller Name Role Phone Valery Berrios MD Primary Care Provider [phone] Vicenta Nielsen NP Primary Care Provider [phone] Reason for Visit * Reason Onset Date Comments Transfer Patient 09/13/2023 Encounter Details Date Type Department Care Team (Late st Contact Info) Description 09/13/2023 Telephone [facility]INE [address] [place] [address] Valery Berrios MD 505 [facility] [place] [phone] Transfer Patient Social History Tobacco Use Types Packs/Day Years Used Date Smoking Tobacco: Every Day Cigarettes Passive Smoke Exposure: Current Smokeless Tobacco: Never Depression Answer Date Recorded Patient Health Questionnaire-9 Score 0 10/20/2022 Housing Stability Answer Date Recorded What is your housing situation today? I do not have housing (Staying with others, in a hotel, in a senior living, living outside on the street, on a [...] status on TP Please contact pt @ [phone] * Telephone Encounter - Jone Kaufman - 09/13/2023 1:58 PM EST Tc from patient requesting to be transferred to the [facility] due to patient residing at [place] documented in this encounter Plan of Treatment Not on file documented as of this encounter Visit Diagnoses Not on filedocumented in this encounter Additional Health Concerns Assessment Noted Time PHQ-9 Depression Total Score: 0 10/20/19 23 2:41 PM EST documented as of this encounter Care Teams Peanut Sheller Relationship Specialty Start Date End Date Valery Berrios MD [address] [place] [address] PCP - General Internal Medicine 12/01/18 12/21/23 Vicenta Nielsen NP [address] [place] [address] PCP - General Family Medicine 12/22/23 [employer] 04/29/24 abigail [email or web address] Education General ManagerLegal Director 10/18/24 documented as of this encounter
--- OUTSIDE RECORDS SUMMARY | 2024-12-05 19:12 | XMS_ITS | Encounter Summary ---
Author Organization [employer] Address [address] [place] [address] 7 [place] [address] Care Team Providers Care Optics Engineer Name Role Phone Valery Berrios MD Primary Care Provider [phone] Vicenta Nielsen NP Primary Care Provider [phone] Reason for Visit * Reason Onset Date Comments Call Back Request 11/17/2023 Encounter Details Date Type Department Care Team (Late st Contact Info) Description 11/17/2023 Telephone [facility] MEDICINE [address] [place] [address] Valery Berrios MD [address] [place], [place] [id number] Call Back Request Social History Tobacco Use Types Packs/Day Years Used Date Smoking Tobacco: Every Day Cigarettes Passive Smoke Exposure: Current Smokeless Tobacco: Never Depression Answer Date Recorded Patient Health Questionnaire-9 Score 0 10/20/2022 Housing Stability Answer Date Recorded What is your housing situation today? I do not have housing (Staying with others, in a hotel, in a group home, living outside on the street, on a [...] Miscellaneous Notes * Telephone Encounter - Lea Paet RN - 11/19/2023 10:41 AM EST Returned [...] on his potassium and iron. According to [facility] pharmacy, they do not have this on file. Dr. Beauzile, is pt to be taking these 2 medications? If so he is in need of both sent to [facility] pharm. Pt also states he stopped taking the amlodipine because it made his legs swell, please DC in chart, he has been having high BP readings and will need something in replace of the amlodipine. Pt agrees to appt with PCP 11.23.23 10a. Pt also states he moved to [place] and would like to transfer his care there. TP request sent on 10.14.23. Will wait for pt appt 11.23.23 to see what current PCP requests for f/u and go from there. * Telephone Encounter - Elmer Sykes - 11/17/2023 3:31 PM EST Tc from pt requesting call back from nurses to go over medication. Please contact pt at [phone]. documented in this encounter Plan of Treatment Not on file documented as of this encounter Visit Diagnoses Not on filedocumented in this encounter Additional Health Concerns Assessment Noted Time PHQ-9 Depression Total Score: 0 10/20/19 23 2:41 PM EST documented as of this encounter Care Teams Optics Engineer Relationship Specialty Start Date End Date Valery Berrios MD [address] [place] [address] PCP - General Internal Medicine 12/01/18 12/21/23 Vicenta Nielsen NP [address] [place] [address] PCP - General Family Medicine 12/22/23 [employer] 04/29/24 abigail [email or web address] Resistor CoaterRecords Management Specialist 10/18/24 documented as of this encounter
--- OUTSIDE RECORDS SUMMARY | 2024-12-05 19:12 | XMS_ITS | Encounter Summary ---
Author Organization [employer] Address [address] [place] [address] 7t [place] [address] Care Team Providers Care Inventory Specialist Manager Name Role Phone Vicenta Nielsen NP Primary Care Provider [phone] Reason for Visit * Reason Onset Date Comments PT-1 12/01/2024 Encounter Details Date Type Department Care Team ([facility] st Contact Info) Description 12/01/2024 Telephone [facility] 230 [place] [address] Vicenta Nielsen NP [address] [place] [address] PT-1 Social History Tobacco Use Types Packs/Day [...] Telephone Encounter - Jacobo Ross - 12/01/2024 11:59 AM EST Patient calling requesting PT1 Home Address verified: Y/N: Yes Provider name or facility name: [facility] [address] [place] [address] Escort needed: Y/N: Yes Do you have a wheelchair: Y/N: Yes If yes- Manual or electric: Electric Visits: (amount of visits) ( x monthly, weekly, daily) 5 times a month documented in this encounter Plan of Treatment Not on file documented as of this encounter Visit Diagnoses Not on filedocumented in this encounter Additional Health Concerns Assessment Noted Time PHQ-9 Depression Total Score: 7 07/25/20 9:24 AM EDT documented as of this encounter Care Teams Inventory Specialist Manager Relationship Specialty Start Date End Date Vicenta Nielsen NP [address] [place] [address] PCP - General Family Medicine 12/22/23 [employer] 04/29/24 abigail [email or web address] Application Support AnalystAnimal Hospital Clerk 10/18/24 documented as of this encounter
--- OUTSIDE RECORDS SUMMARY | 2024-12-05 19:12 | XMS_ITS | Encounter Summary ---
Author Organization [employer] Address [address] [place] [address] 7 [place] [address] Care Team Providers Care Radiology Receptionist Name Role Phone Valery Berrios MD Primary Care Provider [phone] Vicenta Nielsen NP Primary Care Provider [phone] Reason for Visit * Reason Onset Date Comments PT1 07/16/2023 Encounter Details Date Type Department Care Team ([facility] st Contact Info) Description 07/16/2023 Telephone [facility] CHC MED & PEDS [address] [place] [address] Valery Berrios MD 505 [place] [address] PT1 Social History Tobacco Use Types Packs/Day Years Used Date Smoking Tobacco: Every Day Cigarettes Smokeless Tobacco: Never Depression Answer Date Recorded Patient Health Questionnaire-9 Score 0 10/20/2022 Housing Stability Answer Date Recorded What is your housing situation today? I do not have housing (Staying with others, in a hotel, in a detention, living outside on the street, on a [...] Date: n/a Time: n/a Visits: n/a Address: [address] [place] [address] Facility: [facility] Chair: n/a Manager Reporting Needed: no documented in this encounter Plan of Treatment Not on file documented as of this encounter Visit Diagnoses Not on filedocumented in this encounter Additional Health Concerns Assessment Noted Time PHQ-9 Depression Total Score: 0 10/20/19 23 2:41 PM EST documented as of this encounter Care Teams Radiology Receptionist Relationship Specialty Start Date End Date Valery Berrios MD [address] [place] [address] PCP - General Internal Medicine 12/01/18 12/21/23 Vicenta Nielsen NP [address] [place] [address] PCP - General Family Medicine 12/22/23 [facility] [employer] 04/29/24 abigail mcneill Drainage Design CoordinatorTelesales Representative 10/18/24 documented as of this encounter
--- OUTSIDE RECORDS SUMMARY | 2024-12-05 19:12 | XMS_ITS | Encounter Summary ---
Author Organization [employer] Address [address] [place] [address] 7t [place] [address] Care Team Providers Care Music Industry Intern Name Role Phone Vicenta Nielsen NP Primary Care Provider [phone] Reason for Visit * Reason Comments Care Coordination CHW outreach for SDO H [id number] completed Encounter Details Date Type Department Care Team (Latest Contact Info) Description 12/01/2024 Patient Outreach [facility] [address] [place] [address] Vicenta Nielsen, JUSTINO [address] [place] [address] Care Coordination (CHW outreach for SDOH [id number] completed /) Social History Tobacco Use Types [...] encounter Progress Notes * Tomas York - 12/01/2024 1:23 PM EST CHW Tomas York, placed outbound call to patient for assistance with SDOH as a referral was received by the provider. Patient's name and were confirmed. Patient screened positive for the following SDOHPT-1 insecurities. PT-1 requested was send out in behalf of patient for [facility] appt. Update 6 time a month to [facility] [place]. Patient verbalizes understanding, and able to agree with plan to follow up. Patient educated on extended clinic hours on Mondays through Wednesdays, and Walk-In Urgent Care Located in [facility]. Patient provided with after-hours line for [facility], , which offer night time triage service and optionto transfer to construction foreman provider if needed. documented in this encounter Plan of Treatment Not on file documented as of this encounter Visit Diagnoses Not on filedocumented in this encounter Additional Health Concerns Assessment Noted Time PHQ-9 Depression Total Score: 7 07/25/20 24 9:24 AM EDT documented as of this encounter Care Teams Music Industry Intern Relationship Specialty Start Date End Date Vicenta Nielsen NP [address] [place] [address] PCP - General Family Medicine 12/22/23 [employer] 04/29/24 abigail [email or web address] Erecting Crane OperatorConference Assistant 10/18/24 documented as of this encounter
--- OUTSIDE RECORDS SUMMARY | 2024-12-05 19:12 | XMS_ITS | Encounter Summary ---
Author Organization [employer] Address [address] [place] [address] Care Team Providers Care Track Fitter Name Role Phone Valery Berrios MD Primary Care Provider [phone] Vicenta Nielsen NP Primary Care Provider [phone] Reason for Visit * Reason Onset Date Comments Forms/questionnaires 09/17/2022 Encounter Details Date Type Department Care Team ([facility] st Contact Info) Description 09/17/2022 Telephone [facility] CHC MED & PEDS [address] [place] [address] Valery Berrios MD [address] [place] [address] Forms/questionnaires Social History Tobacco Use Types Packs/Day [...] on filedocumented in this encounter Care Teams Track Fitter Relationship Specialty Start Date End Date Valery Berrios MD [address] [place] [address] PCP - General Internal Medicine 12/01/18 12/21/23 Vicenta Nielsen NP [address] [place] [address] PCP - General Family Medicine 12/22/23 [employer] 04/29/24 abigail mcneill Vp OutcomesDictating Machine Mechanic 10/18/24 documented as of this encounter
--- OUTSIDE RECORDS SUMMARY | 2024-12-05 19:12 | XMS_ITS | Encounter Summary ---
Author Organization [employer] Address [address] [place] [address] 7t [place] [address] Care Team Providers Care Die Grinder Name Role Phone Vicenta Nielsen NP Primary Care Provider Reason for Visit * Reason Onset Date Comments Referral 11/15/2024 Encounter Details Date Type Department Care Team ([facility] st Contact Info) Description 11/15/2024 Telephone [facility] [address] [place] [address] Vicenta Nielsen NP [address] [place] [address] Referral Social History Tobacco Use Types Packs/Day [...] encounter Miscellaneous Notes * Telephone Encounter - Michelle Kaufman - 11/22/2024 3:47 PM EST Patient is all set, referral and notes faxed to [facility] [address] FAX [phone]. Letter mailed to patient. * Telephone Encounter - Jeanette Castillo RN - 11/15/2024 1:42 PM EST TC placed to pt to inform of below provider message. ----- Message from Vicenta Nielsen sent at 11/15/2024 1:23 PM EST ----- Please let pt know he is anemic, but improved from prior labs, repeat in 1 month. Pt verbalized understanding of message. Pt reports he received the referral for [facility], but pt wants to be seen at [facility]. Pt asking that the referral be placed for evaluation of both hips and both knees. Pt reports he has had many falls on both his right and left knees. Ptreports he has been taking medications prescribed by PCP and has not had any issues. Message forwarded to PCP to review and advise. documented in this encounter Plan of Treatment Not on file documented as of this encounter Visit Diagnoses Not on filedocumented in this encounter Additional Health Concerns Assessment Noted Time PHQ-9 Depression Total Score: 7 07/25/20 24 9:24 AM EDT documented as of this encounter Care Teams Die Grinder Relationship Specialty Start Date End Date Vicenta Nielsen NP [address] [place] [address] PCP - General Family Medicine 12/22/23 [employer] 04/29/24 abigail mcneill Hot Roll InspectorFood And Beverage Analyst 10/18/24 documented as of this encounter
--- OUTSIDE RECORDS SUMMARY | 2024-12-05 19:12 | XMS_ITS | Encounter Summary ---
Author Organization [employer] Address [address] [place] [address] 7 [place] [address] Care Team Providers Care Fountain Helper Name Role Phone Valery Berrios MD Primary Care Provider [phone] Vicenta Nielsen NP Primary Care Provider [phone] Encounter Details Date Type Department Care Team ([facility] st Contact Info) Description 11/18/2023 Orders Only [facility] CHC MED & PEDS [address] [place] [address] Valery Berrios MD 505 [place] [address] Benign hypertension (Primary Dx) Social History Tobacco Use Types Packs/Day Years Used Date Smoking Tobacco: Every Day Cigarettes Passive Smoke Exposure: Current Smokeless Tobacco: Never Depression Answer Date Recorded Patient Health Questionnaire-9 Score 0 10/20/2022 Housing Stability Answer Date Recorded What is your housing situation today? I do not have housing (Staying with others, in a hotel, in a jail, living outside on the street, on a [...] Blood Count 7.8 4.8 - 10.8 X10*3/uL [facility] Red Blood Count 3.54(L) 4.60 - 5.80 X10*6/uL [facility] Hemoglobin 9.5(L) 14.0 - 18.0 g/dl [facility] Hematocrit 29.7(L) 42.0 - 52.0 % [facility] Mean Corpuscular Volume 83.9 80.0 - 98.0 fL [facility] Mean Corpuscular Hemoglobin 26.8(L) 27.0 - 33.0 pg [facility] Mean Corpuscular HGB Conc 32.0 31.0 - 36.0 g/dl [facility] Red Cell Distribution Width 14.0 11.0 - 16.0 % [facility] Platelet Count 236 160 - 400 X10*3/uL [facility] Mean Platelet Volume 11.3 9.4 - 12.4 fL [facility] Neutrophils Percent Auto 75.3(H) 45 - 73 % [facility] Imm Gran Pct Auto 0.4 0.0 - 0.4 % [facility] Lymphocytes Percent Auto 12.9(L) 20 - 40 % [facility] Monocytes Percent Auto 9.7 2 - 11 % [facility] Eosinophils Percent Auto 1.2 0 - 4 % [facility] Basophils Percent Auto 0.5 0 - 2 % [facility] NRBC Pct Auto 0.0 0.0 - 0.2 /100WBC [facility] Neutrophils Absolute Auto 5.9 2.0 - 8.3 x10*3/uL [facility] Imm Gran Abs Auto 0.03 0.00 - 0.03 X10*3/uL [facility] Lymphocytes Absolute Auto 1.0(L) 1.2 - 4.9 X10*3/uL [facility] Monocytes Absolute Auto 0.8 0.1 - 1.2 X10*3/uL [facility] Eosinophils Absolute Auto 0.1 0.0 - 0.4 X10*3/uL [facility] Basophils Absolute Auto 0.0 0.0 - 0.2 X10*3/uL [facility] NRBC Abs Auto 0.000 0.0 - 0.012 X10*3/uL [facility] Blood Venous blood specimen / Unknown 05/23/2024 11:38 AM EDT 05/23/2024 1:31 PM EDT us Valery Berrios MD LAB BLOOD ORDERABLES Final Result [facility] [address] [place] [phone] documented in this encounter Visit Diagnoses Diagnosis Benign hypertension- Primary Essential hypertension, benign documented in this encounter Additional Health Concerns Assessment Noted Time PHQ-9 Depression Total Score: 0 10/20/19 23 2:41 PM EST documented as of this encounter Care Teams Fountain Helper Relationship Specialty Start Date End Date Valery Berrios MD [address] [place] [address] PCP - General Internal Medicine 12/01/18 12/21/23 Vicenta Nielsen NP [address] [place] [address] PCP - General Family Medicine 12/22/23 [employer] 04/29/24 abigail mcneill Policy Value CalculatorSupervisor Shuttle Fitting 10/18/24 documented as of this encounter
--- OUTSIDE RECORDS SUMMARY | 2024-12-05 19:12 | XMS_ITS | Encounter Summary ---
Author Organization [employer] Address [address] [place] [address] 7[address] [place] [address] Care Team Providers Care Material Liaison Name Role Phone Vicenta Nielsen NP Primary Care Provider [phone] Reason for Visit * Reason Onset Date Comments Call Back Request 03/10/2024 Encounter Details Date Type Department Care Team ([facility] st Contact Info) Description 03/10/2024 Telephone [facility] MEDICINE [address] [place] [address] Vicenta Nielsen NP [address] [place] [address] Call Back Request Social History Tobacco Use [...] scanned in chart. Please contact pt at [phone] documented in this encounter Plan of Treatment Not on file documented as of this encounter Visit Diagnoses Not on filedocumented in this encounter Additional Health Concerns Assessment Noted Time PHQ-9 Depression Total Score: 5 01/04/20 10:57 AM EDT documented as of this encounter Care Teams Material Liaison Relationship Specialty Start Date End Date Vicenta Nielsen NP [address] [place] [address] PCP - General Family Medicine 12/22/23 [employer] 04/29/24 abigail [email or web address] Soft Sugar SupervisorCard Cutter Helper 10/18/24 documented as of this encounter
--- OUTSIDE RECORDS SUMMARY | 2024-12-05 19:12 | XMS_ITS | Encounter Summary ---
Author Organization [facility] Address [address] [place] [address] Care Team Providers Care Craft Center Director Name Role Phone Vicenta Nielsen SUPERVISING BAILIFF Primary Care Provider [phone] Encounter Details Date Type Department Care Team (Late st Contact Info) Description 08/07/2024 Lab Requisition [facility] - Main Lab [address] [facility] [place] [address] Mary Song PA [address] [address] Obesity, unspecified Social History Tobacco Use Types [...] CBC auto differential (08/07/2024 12:00 AM EST) [facility] WBC 5.4 4.8 - 10.8 K/mcL LAB HEMETOLOGY METHOD 08/07/2024 7:14 PM [facility] RBC 3.80(L) 4.50 - 5.50 M/mcL LAB HEMETOLOGY METHOD 08/07/2024 7:14 PM [facility] Hemoglobin 9.9(L) 13.5 - 17.5 g/dL LAB HEMETOLOGY METHOD 08/07/2024 7:14 PM [facility] Hematocrit 31.4(L) 42.0 - 54.0 % LAB HEMETOLOGY METHOD 08/07/2024 7:14 PM [facility] MCV 83.7 79.0 - 98.0 FL LAB HEMETOLOGY METHOD 08/07/2024 7:14 PM [facility] MCH 26.4(L) 27.0 - 32.0 pcg LAB HEMETOLOGY METHOD 08/07/2024 7:14 PM [facility] MCHC 31.5(L) 32.0 - 37.0 g/dL LAB HEMETOLOGY METHOD 08/07/2024 7:14 PM [facility] RDW 14.6 11.0 - 15.0 % LAB HEMETOLOGY METHOD 08/07/2024 7:14 PM [facility] Platelets 186 130 - 400 K/mcL LAB HEMETOLOGY METHOD 08/07/2024 7:14 PM [facility] MPV 12.0(H) 7.0 - 11.0 FL LAB HEMETOLOGY METHOD 08/07/2024 7:14 PM [facility] NRBC 0.0 <1.0 % LAB HEMETOLOGY METHOD 08/07/2024 7:14 PM [facility] NRBC Absolute 0.00 <0.10 K/mcL LAB HEMETOLOGY METHOD 08/07/2024 7:14 PM [facility] Neutrophils Relative 59.9 % LAB HEMETOLOGY METHOD 08/07/2024 7:14 PM [facility] Lymphocytes Relative 25.9 % LAB HEMETOLOGY METHOD 08/07/2024 7:14 PM [facility] Monocytes Relative 9.6 % LAB HEMETOLOGY METHOD 08/07/2024 7:14 PM [facility] Eosinophils Relative 3.5 % LAB HEMETOLOGY METHOD 08/07/2024 7:14 PM [facility] Basophils Relative 0.9 % LAB HEMETOLOGY METHOD 08/07/2024 7:14 PM [facility] Immature Granulocytes Relative 0.2 % LAB HEMETOLOGY METHOD 08/07/2024 7:14 PM [facility] Neutrophils Absolute 3.26 1.50 - 7.00 K/mcL LAB HEMETOLOGY METHOD 08/07/2024 7:14 PM [facility] Lymphocytes Absolute 1.41 1.00 - 5.00 K/mcL LAB HEMETOLOGY METHOD 08/07/2024 7:14 PM [facility] Monocytes Absolute 0.52 0.20 - 1.00 K/mcL LAB HEMETOLOGY METHOD 08/07/2024 7:14 PM [facility] Eosinophils Absolute 0.19 0.00 - 0.50 K/mcL LAB HEMETOLOGY METHOD 08/07/2024 7:14 PM [facility] Basophils Absolute 0.05 0.00 - 0.20 K/mcL LAB HEMETOLOGY METHOD 08/07/2024 7:14 PM [facility] Immature Granulocytes Absolute 0.01 0.00 - 0.03 K/mcL LAB HEMETOLOGY METHOD 08/07/2024 7:14 PM [facility] Blood Venous blood specimen / Unknown Venipuncture / Unknown 08/07/2024 08/07/2024 7:01 PM EST us Mary ROE LAB BLOOD ORDERABLES Final Result Performing Organization Address City/[facility]/ZIP Co de Phone Number [facility] [address] [place] [address], [place] [phone] * Creatine kinase (08/07/2024 12:00 AM EST) [facility] Total CK 48 22 - 269 unit/L LAB CHEMISTRY METHOD 08/07/2024 7:36 PM EST [facility] Blood Venous blood specimen / Unknown Venipuncture / Unknown 08/07/2024 08/07/2024 7:01 PM EST Mary ROE LAB BLOOD ORDERABLES Final Result Performing Organization Address City/[facility]/ZIP Co de Phone Number [facility] [address] [place] [address], [place] [phone] * (ABNORMAL) Comprehensive metabolic panel (08/07/2024 12:00 AM EST) [facility] Sodium 135 133 - 145 mmol/L LAB CHEMISTRY METHOD 08/30/2024 9:16 AM [facility] Potassium 4.6 3.5 - 5.5 mmol/L LAB CHEMISTRY METHOD 08/30/2024 9:16 AM EST [facility] Chloride 101 96 - 110 mmol/L LAB CHEMISTRY METHOD 08/30/2024 9:16 AM EST [facility] CO2 28 21 - 32 mmol/L LAB CHEMISTRY METHOD 08/30/2024 9:16 AM EST [facility] Anion Gap 6 3 - 11 LAB CHEMISTRY METHOD 08/30/2024 9:16 AM [facility] Glucose 252(H) 70 - 100 mg/dL LAB CHEMISTRY METHOD 08/30/2024 9:16 AM [facility] BUN 29(H) 5 - 25 mg/dL LAB CHEMISTRY METHOD 08/30/2024 9:16 AM [facility] Creatinine 1.00 0.70 - 1.30 mg/dL LAB CHEMISTRY METHOD 08/30/2024 9:16 AM [facility] eGFR 87 >=60 mL/min/1. 73m2 LAB CHEMISTRY METHOD 08/30/2024 9:16 AM [facility] Comment:Calculation based on the??Chronic Kidney Disease Epidemiology Collaboration (CKD-EPI) equation refit??without adjustment for race. BUN/Creatinine Ratio 29.0 LAB CHEMISTRY METHOD 08/30/2024 9:16 AM [facility] Calcium 9.5 8.5 - 10.5 mg/dL LAB CHEMISTRY METHOD 08/30/2024 9:16 AM [facility] AST (SGOT) 14 10 - 42 unit/L LAB CHEMISTRY METHOD 08/30/2024 9:16 AM [facility] ALT (SGPT) 22 10 - 60 unit/L LAB CHEMISTRY METHOD 08/30/2024 9:16 AM [facility] Alkaline Phosphatase 82 42 - 121 unit/L LAB CHEMISTRY METHOD 08/30/2024 9:16 AM [facility] Total Protein 7.4 6.0 - 8.0 g/dL LAB CHEMISTRY METHOD 08/30/2024 9:16 AM [facility] Albumin 3.7 3.2 - 5.0 g/dL LAB CHEMISTRY METHOD 08/30/2024 9:16 AM [facility] Total Bilirubin 0.2 0.0 - 1.4 mg/dL LAB CHEMISTRY METHOD 08/30/2024 9:16 AM [facility] Blood Venous blood specimen / Unknown Venipuncture / Unknown 08/07/2024 08/07/2024 7:01 PM EST us Mary Greco Jaworek PA LAB BLOOD ORDERABLES Edite d Result - Final [facility] [address] [place] [address], documented in this encounter Visit Diagnoses Diagnosis Obesity, unspecified documented in this encounter Care Teams Craft Center Director Relationship Specialty Start Date End Date Vicenta Nielsen FNP [address] [place] [phone] PCP - General 05/26/24 documented as of this encounter
--- OUTSIDE RECORDS SUMMARY | 2024-12-05 19:13 | XMS_ITS | Encounter Summary ---
Author Organization [employer] Address [address] [place] [address] 7 [place] [address] Care Team Providers Care Communications Professor Name Role Phone Valery Berrios MD Primary Care Provider [phone] Vicenta Nielsen NP Primary Care Provider [phone] Reason for Visit * Reason Onset Date Comments medication 07/14/2023 Encounter Details Date Type Department Care Team ([facility] st Contact Info) Description 07/14/2023 Telephone [facility] MED & PEDS [address] [place] [address] Valery Berrios MD [address] [place] [address] medication Social History Tobacco Use Types Packs/Day Years Used Date Smoking Tobacco: Every Day Cigarettes Smokeless Tobacco: Never Depression Answer Date Recorded Patient Health Questionnaire-9 Score 0 10/20/2022 Housing Stability Answer Date Recorded What is your housing situation today? I do not have housing (Staying with others, in a hotel, in a snf, living outside on the street, on a [...] see message below. Retrieved Endo note from [employer]. Per note, plan is to reinitiate metformin 1000mg bid. Could consider adding and SGLT 2 inhibitor in the future. Will increase lantus to 65units at possibly 70 units to keep point care in a.m <180 ... Will send note to scan for PCP to review. * Telephone Encounter - Ying Cox - 07/14/2023 11:20 AM EDT Tc from pt stating client services specialist is requesting pt switch from 55 to 65 units on insulin glargine (Lantus) 100 UNIT/ML injection. documented in this encounter Plan of Treatment Not on file documented as of this encounter Visit Diagnoses Not on filedocumented in this encounter Additional Health Concerns Assessment Noted Time PHQ-9 Depression Total Score: 0 10/20/19 23 2:41 PM EST documented as of this encounter Care Teams Communications Professor Relationship Specialty Start Date End Date Valery Berrios MD [address] [place] [address] PCP - General Internal Medicine 12/01/18 12/21/23 Vicenta Nielsen NP [address] [place] [address] PCP - General Family Medicine 12/22/23 [employer] 04/29/24 abigail [email or web address] Transmitter EngineerAccounting Methods Analyst 10/18/24 documented as of this encounter
--- OUTSIDE RECORDS SUMMARY | 2024-12-05 19:13 | XMS_ITS | Encounter Summary ---
Author Organization [employer] Address [address] [facility] 7 [place] [address] Care Team Providers Care Product Management Consultant Name Role Phone Valery Berrios MD Primary Care Provider [phone] Vicenta Nielsen NP Primary Care Provider [phone] Encounter Details Date Type Department Care Team (Late st Contact Info) Description 03/24/2023 Abstract [facility] MEDICINE [address] [place] [address] Valery Berrios MD [address] [facility] [place] [id number] Social History Tobacco Use Types Packs/Day Years [...] documented as of this encounter Care Teams Product Management Consultant Relationship Specialty Start Date End Date Valery Berrios MD [address] [place] [address] PCP - General Internal Medicine 12/01/18 12/21/23 Vicenta Nielsen NP [address] [place] [address] PCP - General Family Medicine 12/22/23 [employer] 04/29/24 abigail mcneill Industrial Safety And Health ManagerGranite Polisher 10/18/24 documented as of this encounter
--- OUTSIDE RECORDS SUMMARY | 2024-12-05 19:13 | XMS_ITS | Encounter Summary ---
Author Organization [employer] Address [address] [place] [address] 7t [place] [address] Care Team Providers Care Data Processing Clerk Name Role Phone Valery Berrios MD Primary Care Provider [phone] Vicenta Nielsen NP Primary Care Provider [phone] Reason for Visit * Reason Onset Date Comments pt1 03/03/2023 Encounter Details Date Type Department Care Team (Late st Contact Info) Description 03/03/[address] [facility] MEDICINE [address] [place] [address] Valery Berrios MD [address] [facility] [place] [id number] pt1 Social History Tobacco Use Types Packs/Day [...] ride Date: wednesday Time: 10 am address: [address] [place] [address] [place] [address] specialty: # visits: caustic liquor maker: no Wheelchair: cane Date: Time: address: [address] [place] [address] specialty: # visits: caustic liquor maker: no Wheelchair: cane documented in this encounter Plan of Treatment Not on file documented as of this encounter Visit Diagnoses Not on filedocumented in this encounter Additional Health Concerns Assessment Noted Time PHQ-9 Depression Total Score: 0 10/20/19 23 2:41 PM EST documented as of this encounter Care Teams Data Processing Clerk Relationship Specialty Start Date End Date Valery Berrios MD [address] [place] [address] PCP - General Internal Medicine 12/01/18 12/21/23 Vcienta Nielsen NP [address] [place] [address] PCP - General Family Medicine 12/22/23 [employer] 04/29/24 abigail [email or web address] Human Services InstructorResistor Testing Machine Operator 10/18/24 documented as of this encounter
--- OUTSIDE RECORDS SUMMARY | 2024-12-05 19:13 | XMS_ITS | Encounter Summary ---
Author Organization [employer] Address [address] [place] [address] [address] [place] [address] Care Team Providers Care University Administrator Name Role Phone Vicenta Nielsen NP Primary Care Provider [phone] Reason for Visit * Reason Onset Date Comments Nurse Triage 08/01/2024 Encounter Details Date Type Department Care Team ([facility] st Contact Info) Description 08/01/2024 Telephone [facility] MEDICINE [address] [place] [address] Vicenta Nielsen NP [address] [place] [address] Nurse Triage Social History Tobacco Use Types [...] amputation. Pt offered to seek care at [facility]. Pt declines states will have [facility] call tomorrow with update on what area looks like based on their assessment. Reviewed home care advise, ER precautions and reasons to call back. Reviewed [facility] operating hours and that wait times vary. [...] documented as of this encounter Care Teams University Administrator Relationship Specialty Start Date End Date Vicenta Nielsen NP [address] [place] [address] PCP - General Family Medicine 12/22/23 [employer] 04/29/24 abigail mcneill Sap Sd AnalystFinance Assistant 10/18/24 documented as of this encounter
--- OUTSIDE RECORDS SUMMARY | 2024-12-05 19:13 | XMS_ITS | Clinical Summary ---
Author Organization [employer] Address [address] [place] [address] 7 [place] [address] Care Team Providers Care Rail Signal Mechanic Name Role Phone Vicenta Nielsen NP Primary Care Provider [phone] Allergies Active Allergy Reactions Criticality Noted Date Comments Bee Pollen 05/07/2023 Bee Venom Anaphylaxis High 12/15/2018 Beeswax Unknown 03/21/2024 Per Johan Cortés Erythromycin Itching 07/04/2019 Iodinated Contrast Media Shortness of breath High 11/20/2022 Iodine 12/15/2018 Medications * This document contains information received from the source organization and may not represent a complete record from that organization. Blood Glucose Monitoring Suppl (Zapayle D Hanis Lite) w/Device kit TEST BLOOD SUGAR FOUR TIMES DAILY 022 Active Continuous Blood Gluc Auto Mechanics Instructor (MailWriterStyle Oumar 2 Lorton) device USE DIRECTED EVERY DAY 022 Active METHADONE HCL PO Take 115 mg by mouth in the morning. Active Diclofenac Sodium 1 % gelIndications: Chronic pain of both knees,Left hip pain,Chronic right shoulder pain To apply to the affected areas 3 times a day 100 g 1 023 Active Nutritional Supplements (Yared) powderIndicatio ns:Amputation of right great toe (CMS/HCC) 1 packet to dilute in 8 oz of water 2 times a day 545 g 3 023 Active acetaminophen (Tylenol) 325 MG tablet TAKE TWO TABLETS BY MOUTH EVERY FOUR HOURS NEEDED FOR MILD PAIN 023 Active TRUEplus Lancets 33G miscIndications :Type 2 diabetes mellitus without complication, with long-term current use of insulin ([facility]) TEST BLOOD SUGAR FOUR TIMES DAILY 100 each 11 024 Active Continuous Blood Gluc Sensor (FreeStyle Oumar 2 Sensor) misc USE DIRECTED TO TEST BLOOD SUGAR. CHANGE EVERY 14 DAYS . 2 each 11 024 Active ipratropium-alb uterol (Combivent Respimat) 20-100 MCG/ACT inhalerIndicati ons:COPD mixed type ([facility]) Inhale 1 puff if needed in the morning, at noon, in the evening, and at bedtime for wheezing. 4 g 2 024 2024 Active Multiple Vitamin (Multivitamin) tablet Take 1 tablet by mouth in the morning. 024 Active atorvastatin (Lipitor) 20 MG tablet Take 1 tablet (20 mg) by mouth at bedtime. 90 tablet 3 024 2024 Active Blood Pressure Monitoring (Blood Pressure Cuff) [facility] [place] Use daily as prescribed 1 each 024 Active polyethylene glycol, PEG, 3350 (Glycolax) 17 GM/SCOOP powder MIX 17G (1 CAPFUL) IN 8 OUNCES OF WATER, COFFEE, OR TEA AND TAKE BY MOUTH EVERY DAY FOR 3 DAYS 510 g 1 024 Active FREESTYLE LITE test stripIndication s:Type 2 diabetes mellitus without complication, with long-term current use of insulin ([facility]) USE DIRECTED TO TEST BLOOD SUGAR FOUR TIMES DAILY 100 strip 4 024 Active Lactobacillus Probiotic tabletIndicatio ns:Chronic antibiotic suppression Take 1 tablet by mouth 3 times daily. 90 tablet 2 024 Active insulin glargine (Lantus SoloStar) 100 UNIT/ML penIndications: Type 2 diabetes mellitus with hyperglycemia, with long-term current use of insulin ([facility]) Inject 20 Units under the skin 2 times daily. 15 mL 3 024 Active insulin lispro (HumaLOG) 100 UNIT/ML injection 2-17 units subcutaneous with meals and snacks 15 mL 11 025 Active olmesartan-hydr oCHLOROthiazide (Benicar HCT) 40-25 MG tabletIndicatio ns:Hypertension , unspecified type Take 1 tablet by mouth Once per day. 90 tablet 1 025 2025 Active insulin pen needle (Novofine Pen Needle) 32G x 6 mm miscIndications :Type 2 diabetes mellitus without complication, with long-term current use of insulin (CMS/HCC) USE 5 TO 6 TIMES DAILY DIRECTED 150 each 1 025 Active insulin pen needle (Novofine Pen Needle) 32G x 6 mm miscIndications :Type 2 diabetes mellitus without complication, with long-term current use of insulin (CMS/HCC) USE 5 TO 6 TIMES DAILY DIRECTED 150 each 11 024 2024 Discontinued(R eorder (will not trigger notification to Pharmacy)) verapamil ER (Verelan PM) 100 MG 24 hr capsuleIndicati ons:Benign hypertension Take 1 capsule (100 mg) by mouth at bedtime. Do not crush or chew. 30 capsule 11 024 2024 Discontinued(T herapy completed) lisinopril (Zestril) 30 MG tablet Take 1 tablet (30 mg) by mouth Once per day. 90 tablet 2 024 2024 Discontinued(I neffective) Active Problems Patient Care Coordination No te Formatting of this note migh t be different from the original. [id number] Abdifatah Muñoz C3/CM Sandy Gimenez RN Problem Noted Date Diagnosed Date Left flank pain 11/10/2024 Assessment & Plan (11/12/2024 7:16 PM EST): Ddx includes msk pain, no hematuria, ultrasound ordered due to hx of renal calculi Peripheral vascular disease 11/10/2024 Coronary artery disease involving deering heart 0 11/10/2024 Pain of right hip [...] sxs. Referral placed for OP therapy with [facility] in [place]. Provided patient referral letter and agency contact [...] sxs. Provided information for [facility] in [place] for sooner appointments. Assessment & Plan (07/24/2024 7:13 PM EDT): Pt with significant anxiety, related to home life and serious illnesses, [facility] into meet with patient Panic attacks 07/24/2024 [...] sxs. Provided information for [facility] in [place] for sooner appointments. Amputation of right lower [...] pending , advised him to f/u with rn intensive care unit Pelvic lymphadenopathy 05/23/2024 Overview (05/23/2024): CT scan abd/pelvis at [facility] on 02/20/24: IMPRESSION: 1. Pelvic lymphadenopathy. [...] does not receive his care in the [facility] system, and there are limited records, including labs, available for review in Care Everywhere. Hgb over the past 2 weeks FACTORY SUPERVISOR has ranged from 6.7 to 8.2. Patient has an unknown baseline H&H. Patient underwent TMA of the right foot on February 06, [address] Escalante. This was performed at [facility], and patient was discharged to rehab at [facility]. Starting on 03/07, patient with increased bleeding from amputation site. He presented to the ED on this date, was seen by podiatry, and given lack of active bleeding and stable H&H, he was DC'd back to rehab. Came back 03/12 with bleeding, however this stopped with elevation and he was again discharged back to [place], only to return on 03/13. He was [...] -Close follow up with Dr. Escalante in [place]. Appointment scheduled for 04/04/2024 at 2:30 PM [...] 06, 2024. This surgery was performed at [facility]. Patient was ultimately discharged to [facility] for ongoing rehab, and was continued [...] tolerated. FU with PCP as scheduled Encounters Date Type Department Care Team Description 12/04/2024 Telephone [facility] [address] [place] [phone] Vicenta Nielsen NP Durable Medical Equipment 12/01/2024 Patient Outreach [facility] [address] [place] [phone] Vicenta Nielsen NP Care Coordination (CHW outreach for SDOH [id number] completed /) 12/01/2024 Refill [facility] [address] [place] [phone] Vicenta Nielsen NP Type 2 diabetes mellitus without complication, with long-term current use of insulin ([facility]) 12/01/2024 Telephone [facility] [address] [place] [phone] Vicenta Nielsen NP PT-1 11/15/[address] [address] Vicenta Nielsen NP Referral 11/10/2024 1:45 PM EST Office Visit [address] [phone] Vicenta Nielsen NP Hypertension, unspecified type (Primary Dx); Type 2 diabetes mellitus with hyperglycemia, with long-term current use of insulin ([facility]); Left flank pain; Below-knee amputation of right lower extremity, initial encounter ([facility]); Peripheral vascular disease ([facility]); Coronary artery disease involving deering heart with other form of angina pectoris, unspecified vessel or lesion type ([facility]); Iron deficiency anemia due to chronic blood loss; Palpitations; Essential (primary) hypertension; Type 2 diabetes mellitus with other circulatory complication, with long-term current use of insulin ([facility]); History of opioid abuse ([facility]) 10/31/2024 Patient Outreach [facility] [address] [place] [phone] Vicenta Nielsen NP Care Coordination (CHW outreach for SDOH PT-1 and food needs-referral completed /) 10/31/[address] [address] Ronna Juarez MA Chart Prep 10/31/[address] [address] Vicenta Nielsen NP Lab Orders 10/31/[address] [address] Vicenta Nielsen NP PT-1 10/31/[address] [address] Vicenta Nielsen NP Referral 10/26/2024 Orders Only [address] [address] Kimberly Bloom NP Pain of right hip (Primary Dx) 10/24/[address] [phone] Vicenta Nielsen NP Referral 10/18/2024 Patient Outreach [address] [address] Vicenta Nielsen NP Care Coordination (ICP care plan) 10/16/[address] [address] David Pate MA DME from [facility] 10/12/[address] [address] Vicenta Nielsen NP FYI 10/10/[address] [address] Vicenta Nielsen NP Medication Question 10/09/2024 Refill [facility] [address] [place], [place] [phone] Valery Berrios MD 09/29/2024 11:30 AM EST Office Visit [address] [address] Vicenta Nielsen NP Resistant hypertension (Primary Dx); Type 2 diabetes mellitus with hyperglycemia, with long-term current use of insulin ([facility]); Pain of right hip; Dental caries; Below-knee amputation of right lower extremity, subsequent encounter ([facility]) 09/29/2024 Travel 09/19/2024 Telephone [facility] [address] [place] [address] Vicenta Nielsen NP callback 09/15/2024 Orders Only GENERIC EXTERNAL DATA DEPARTMENT Provider, Generic External Data 09/13/2024 Telephone [facility] [address] [place] [address] Vicenta Nielsen NP Durable Medical Equipment from Last 3 Months Immunizations Name Administration [...] 19+ 3-dose series) 1984 COVID-19 Vaccine ( season) 2024 12/25/2022, 10/20/2021, 03/04/2021, Additional history [...] Procedure Name Priority Date/Time Associated Diagnosis Comments TSH W/REFLEX TO FT4 Routine 11/15/2024 1 1:01 AM EST Palpitations IRON AND TOTAL IRON BINDING CAPACITY Routine 11/15/2024 11:01 AM EST Hypertension, unspecified type Coronary artery disease involving deering heart with other form of angina pectoris, unspecified vessel or lesion type (CMS/HCC) Iron deficiency anemia due to chronic blood loss CBC WITH AUTO DIFFERENTIAL Routine 11/15/2024 11:01 AM EST Type 2 diabetes mellitus with hyperglycemia, with long-term current use of insulin (CMS/HCC) Coronary artery disease involving deering heart with other form of angina pectoris, unspecified vessel or lesion type (CMS/HCC) COMPREHENSIVE METABOLIC PANEL Routine 11/15/2024 11:01 AM EST Type 2 diabetes mellitus with hyperglycemia, with long-term current use of insulin (CMS/HCC) Coronary artery disease involving deering heart with other form of angina pectoris, unspecified vessel or lesion type (CMS/HCC) POCT GLYCATED HEMOGLOBIN, TOTAL Routine 11/10/2024 2:12 PM EST Type 2 diabetes mellitus with hyperglycemia, with long-term current use of insulin (CMS/HCC) POCT GLUCOSE Routine 11/10/2024 2:10 PM EST Type 2 diabetes mellitus with hyperglycemia, with long-term current use of insulin ([facility]/HCC) POCT GLUCOSE Routine 09/29/2024 12:19 PM EST Type 2 diabetes mellitus with hyperglycemia, with long-term current use of insulin ([facility]/HCC) GLUCOSE, WHOLE BLOOD Routine 09/15/2024 10:19 AM EST LIPID PANEL, STANDARD Routine 06/02/2024 11:59 AM EDT ALBUMIN, RANDOM URINE W/CREATININE Routine 06/02/2024 11:49 AM EDT from Last 3 Months or Most Recently Relevant to Health Maintenance Results * TSH W/Reflex to FT4 (11/15/2024 11:01 AM EST) TSH reflex Free T4 1.53 0.32 - 4.0 uIU/mL [facility] Blood Venous blood specimen / Unknown 11/15/2024 11:01 AM EST 11/15/2024 11:10 AM EST us Vicenta Nielsen BRAIN WAVE TECHNICIAN LAB BLOOD ORDERABLES Final Resul t [facility] [address] [place] [address] [phone] * (ABNORMAL) CBC auto differential (11/15/2024 11:01 AM EST) White Blood Count 8.6 4.8 - 10.8 X10*3/uL [facility] Red Blood Count 3.97(L) 4.60 - 5.80 X10*6/uL [facility] Hemoglobin 11.1(L) 14.0 - 18.0 g/dl [facility] Hematocrit 33.5(L) 42.0 - 52.0 % [facility] Mean Corpuscular Volume 84.4 80.0 - 98.0 fL [facility] Mean Corpuscular Hemoglobin 28.0 27.0 - 33.0 pg [facility] Mean Corpuscular HGB Conc 33.1 31.0 - 36.0 g/dl [facility] Red Cell Distribution Width 13.7 11.0 - 16.0 % [facility] Platelet Count 239 160 - 400 X10*3/uL [facility] Mean Platelet Volume 10.7 9.4 - 12.4 fL [facility] Neutrophils Percent Auto 73.0 45 - 73 % [facility] Imm Gran Pct Auto 0.3 0.0 - 0.4 % [facility] Lymphocytes Percent Auto 15.2(L) 20 - 40 % [facility] Monocytes Percent Auto 9.0 2 - 11 % [facility] Eosinophils Percent Auto 1.7 0 - 4 % [facility] Basophils Percent Auto 0.8 0 - 2 % [facility] NRBC Pct Auto 0.0 0.0 - 0.2 /100WBC [facility] Neutrophils Absolute Auto 6.3 2.0 - 8.3 x10*3/uL [facility] Imm Gran Abs Auto 0.03 0.00 - 0.03 X10*3/uL [facility] Lymphocytes Absolute Auto 1.3 1.2 - 4.9 X10*3/uL [facility] Monocytes Absolute Auto 0.8 0.1 - 1.2 X10*3/uL [facility] Eosinophils Absolute Auto 0.2 0.0 - 0.4 X10*3/uL [facility] Basophils Absolute Auto 0.1 0.0 - 0.2 X10*3/uL [facility] NRBC Abs Auto 0.000 0.0 - 0.012 X10*3/uL [facility] Blood Venous blood specimen / Unknown 11/15/2024 11:01 AM EST 11/15/2024 11:10 AM EST us Vicenta Nielsen BRAIN WAVE TECHNICIAN LAB BLOOD ORDERABLES Final Resul t Performing Organization Address City/[facility]/ZIP Co de Phone Number [facility] [address] [place] [phone] * (ABNORMAL) Iron And Total Iron Binding Capacity (11/15/2024 11:01 AM EST) Iron 43(L) 45 - 160 mcg/dL [facility] Total Iron Binding Capacity 316 228 - 428 mcg/dL [facility] Percent Iron Saturation 14(L) 15 - 50 % [facility] Unsaturated Iron Binding 273 ug/dL [facility] Blood Venous blood specimen / Unknown 11/15/2024 11:01 AM EST 11/15/2024 11:10 AM EST Vicenta Nielsen NP LAB BLOOD ORDERABLES Final Resul t Performing Organization Address City/[facility]/ZIP Co de Phone Number [facility] [address] [place] [phone] * (ABNORMAL) Comprehensive Metabolic Panel (11/15/2024 11:01 AM EST) Sodium 135 135 - 145 mmol/L [facility] Potassium 5.0 3.3 - 5.1 mmol/L [facility] Chloride 103 96 - 108 mmol/L [facility] Carbon Dioxide 27 22 - 29 mmol/L [facility] Anion Gap 10(L) 12 - 20 [facility] Urea Nitrogen (BUN) 25(H) 9 - 16 mg/dL [facility] Creatinine, Serum 0.95 0.5 - 1.4 mg/dL [facility] Estimated Glomerular Filt Rate >60 [facility] Comment:Chronic Kidney Disea se: Estimated GFR < 60 mL/min/1.37f2Joxlea Kidney Disease: Estimated GFR < 15 mL/min/1.73m2 Glucose 185(H) 60 - 115 mg/dL [facility] Calcium 8.9 8.4 - 10.2 mg/dL [facility] Bilirubin, Total 0.3 0.0 - 1.0 mg/dL [facility] Aspartate Amino Transferase 14 5 - 37 U/L [facility] Alanine Aminotransferase 10 0 - 40 U/L [facility] Total Protein 7.9 6.5 - 8.0 g/dL [facility] Albumin Level 4.0 3.5 - 5.0 g/dL [facility] Alkaline Phosphatase 93 39 - 117 U/L [facility] Blood Venous blood specimen / Unknown 11/15/2024 11:01 AM EST 11/15/2024 11:10 AM EST us Vicenta Nielsen BRAIN WAVE TECHNICIAN LAB BLOOD ORDERABLES Final Resul t [facility] [address] [place] [phone] [phone] * (ABNORMAL) POCT HGB A1C (11/10/2024 2:12 PM EST) Hemoglobin A1C 7.0(A) 4.0 - 6.0 % QC Media Lot # [id number] Lot# Expiration Date ,007 Blood 11/10/2024 2:12 PM EST Vicenta Nielsen BRAIN WAVE TECHNICIAN POINT OF CARE TEST ENTER/EDIT OR DERABLES Final Result * POCT Glucose (11/10/2024 2:10 PM EST) Only the most recent of2 resultswithin the time period is included. Glucose Blood, POC 170 60 - 200 mg/dL [employer] Media Lot # [id number] Lot# Expiration Date Blood Capillary blood specimen / Unknown 11/10/2024 2:10 PM EST Vicenta Nielsen BRAIN WAVE TECHNICIAN POINT OF CARE TEST ENTER/EDIT OR DERABLES Final Result * (ABNORMAL) Glucose, Whole Blood (09/15/2024 10:19 AM EST) [facility] Glucose, Whole Blood 137(H) 60 - 115 mg/dL [facility] Comment:METER #: [id number] Testing performed in the Endocrinology Department [address] , [address], [facility]. 09/15/2024 10:1 9 AM EST 09/15/2024 10:22 AM EST us Generic External Data Provider LAB BLOOD ORDERAB LES Final Result [facility] [address] [place] [address] [phone] * (ABNORMAL) Lipid Panel, Standard (06/02/2024 11:59 AM EDT) Triglycerides 61 <150 mg/dL [facility] Comment:Desirable Triglyceri de: less than 150 mg/dLBorderline High Triglyceride 150-199 mg/dLHigh Triglyceride: 200-499 mg/dLVery High Triglyceride: greater than or equal to 5OO mg/dL Cholesterol 85 <200 mg/dL [facility] Comment:Desirable Cholestero l: less than 200 mg/dLBorderline High Cholesterol: 200-239 mg/dLHigh Cholesterol: greater than 239 mg/dL LDL Cholesterol Calculated 43 <100 mg/dL [facility] Comment:Desirable LDL: less than 100 mg/dLNear Optimal/Above Optimal LDL: 110- 129 mg/dLBorderline High LDL: 130-159 mg/dLHigh LDL: 160-189 mg/dLVery High LDL: greater than or equal to 190 mg/dL HDL Cholesterol 30(L) >40 mg/dL [facility] Comment:Desirable HDL: great er than 40 mg/dL Note: This HDL assay may give artificially low results in patients with liver disease. 06/02/2024 11:5 9 AM EDT 06/02/2024 11:59 AM EDT Generic External Data Provider LAB BLOOD ORDERAB LES Final Result Performing Organization Address [facility] Co de Phone Number [facility] [address] [place] [phone] * Albumin, Random Urine W/Creatinine (06/02/2024 11:49 AM EDT) Creatinine, Urine 75.26 mg/dL [facility] Microalbumin Urine 10.0 mg/L [facility] Microalbum Creatinine Ratio Ur 13.2 <30 ug/mg cr [facility] Comment:Albumin/Creatinine R atio Reference Ranges: Normal: < 30 ug/mg creatinine Microalbuminuria: 30 - 300 ug/mg creatinineClinical Albuminuria: > 300 ug/mg creatinine 06/02/2024 11:4 9 AM EDT 06/02/2024 1:11 PM EDT us Generic External Data Provider LAB URINE ORDERAB LES Final Result Performing Organization Address [facility] Co de Phone Number [facility] [address] [place] [phone] from Last 3 Months or Most Recently Relevant to Health Maintenance Insurance [facility] C3 Care Teams Rail Signal Mechanic Relationship Specialty Start Date End Date Vicenta Nielsen NP [address] [place] [phone] PCP - General Family Medicine 12/22/23 Mytopia 04/29/24 abigail mcneill Ase Certified TechnicianChimney Sweeper 10/18/24
--- OUTSIDE RECORDS SUMMARY | 2024-12-05 19:13 | XMS_ITS | Encounter Summary ---
Author Organization [employer] Address [address] [place] [address] 7 [place] [address] Care Team Providers Care Director Of Retail Analytics Name Role Phone Valery Berrios MD Primary Care Provider [phone] Vicenta Nielsen NP Primary Care Provider [phone] Encounter Details Date Type Department Care Team ([facility] st Contact Info) Description 04/21/2023 Orders Only [facility] [address] [facility] [place] [address] Valery Berrios MD [address] [place] [phone] Other iron deficiency anemia Social History Tobacco [...] as of this encounter Care Teams Director Of Retail Analytics Relationship Specialty Start Date End Date Valery Berrios MD [address] [place] [phone] PCP - General Internal Medicine 12/01/18 12/21/23 Vicenta Nielsen NP [address] [place] [phone] PCP - General Family Medicine 12/22/23 NeuroPace 04/29/24 abigail mcneill Berry GrowerIndigo Mixer 10/18/24 documented as of this encounter
--- OUTSIDE RECORDS SUMMARY | 2024-12-05 19:13 | XMS_ITS | Encounter Summary ---
Author Organization [employer] Address [address] [place] [address] [address] [place] [address] Care Team Providers Care Puffer Tender Name Role Phone Vicenta Nielsen NP Primary Care Provider [phone] Reason for Visit * Reason Onset Date Comments PT-1 10/31/2024 Encounter Details Date Type Department Care Team ([facility] st Contact Info) Description 10/31/2024 Telephone [facility] [address] [place] [address] Vicenta Nielsen NP [address] [place] [address] PT-1 Social History Tobacco Use Types Packs/Day [...] is your housing situation today? I have ann-emarie miller 12/17/[address] [...] facility name: [address] [facility] [facility] Escort needed: Y/N: Yes Do you have a wheelchair: Y/N: Yes If yes- Manual or electric: electric Visits: (3) ( x monthly) * Telephone Encounter - Jacobo Ross - 10/31/2024 10:29 AM EST Patient calling requesting PT1 Home Address verified: Y/N: Yes [facility] [address] [place] [phone] Escort needed: Y/N: Yes Do you have [...] documented as of this encounter Care Teams Puffer Tender Relationship Specialty Start Date End Date Vicenta Nielsen NP [address] [place] [address] PCP - General Family Medicine 12/22/23 DoNation 04/29/24 abigail mcneill Human Services ManagerDocument Control Associate 10/18/24 documented as of this encounter
--- OUTSIDE RECORDS SUMMARY | 2024-12-05 19:13 | XMS_ITS | Clinical Summary ---
Author Organization [address] Address [address] [place] [phone] Phone Care Team Providers Care Bacteriology Technician Name Role Phone Vicenta Nielsen RAZ Primary Care Provider [phone] Immunizations Name Administration Dates Next Due Pfizer SARS-CoV-2 COVID-19, mRNA, LNP-S, preservative free 03/04/2021,02/11/2021 Surgical History Surgery Date Site/Laterality Comments OTHER SURGICAL HISTORY PROCEDURE:KIDNEY STENT LEG AMPUTATION Right PROCEDURE:BELOW KNEE LEG AMPUTATION Medical History Medical History Date Comments Diabetes mellitus (CMS/HCC) DX:D iabetes mellitus (HCC) Hypertension DX:Hypertension Social History Tobacco Use Types [...] Influencers of Health Screening 11/02/2023 COVID-19 Vaccine (2023-2 5 season) 2024 03/04/2021, 02/11/2021 Influenza Vaccine [...] on patient's age to complete this topic Insurance MEDICAID - [place] Advance Directives Documents on File Type Date Recorded 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
--- OUTSIDE RECORDS SUMMARY | 2024-12-05 19:13 | XMS_ITS | Encounter Summary ---
Author Organization [employer] Address [address] [place] [address] [place] [address] Care Team Providers Care Personnel Quality Assurance Auditor Name Role Phone Valery Berrios MD Primary Care Provider [phone] Vicenta Nielsen NP Primary Care Provider [phone] Reason for Visit * Reason Onset Date Comments PT1 11/18/2022 Encounter Details Date Type Department Care Team ([facility] st Contact Info) Description 11/18/2022 Telephone [facility] MED & PEDS [address] [place] [address] Valery Berrios MD [address] [place] [address] PT1 Social History Tobacco Use Types Packs/Day [...] from pt requesting for a PT1 Location: [address] [place] [address] Specialty: All appts Time: n/a Date: n/a Helmet Hat Sweatband Puncher: n/a Does require a cane. Pt states previous PT1 will on December 09, 2022 If any question please contact pt at [phone] documented in this encounter Plan of Treatment Not on file documented as of this encounter Visit Diagnoses Not on filedocumented in this encounter Additional Health Concerns Assessment Noted Time PHQ-9 Depression Total Score: 0 10/20/19 23 2:41 PM EST documented as of this encounter Care Teams Personnel Quality Assurance Auditor Relationship Specialty Start Date End Date Valery Berrios MD [address] [place] [address] PCP - General Internal Medicine 12/01/18 12/21/23 Vicenta Nielsen NP [address] [place] [address] PCP - General Family Medicine 12/22/23 [employer] 04/29/24 abigail mcneill Pot Lining SupervisorVp Software Support 10/18/24 documented as of this encounter
--- OUTSIDE RECORDS SUMMARY | 2024-12-05 19:13 | XMS_ITS | Encounter Summary ---
Author Organization [employer] Address [address] [place] [address] [place] [address] Care Team Providers Care Community Health Education Coordinator Name Role Phone Valery Berrios MD Primary Care Provider [phone] Vicenta Nielsen NP Primary Care Provider [phone] Reason for Visit * Reason Onset Date Comments Ultrasound Status 11/18/2022 Encounter Details Date Type Department Care Team ([facility] st Contact Info) Description 11/18/2022 Telephone [facility] CH[facility] MED & PEDS [address] [place] [address] Valery Berrios MD [address] [place] [address] Ultrasound Status Social History Tobacco Use Types [...] good effect. Pt informed this RN checked [facility] and there is no dx of his complain. Pt advised letter cannot be written without appropriate dx and that pt can call [facility] back with the numberfor the urologist so that PCP's office can f/u with them to request notes and update dx. Pt also gave this RN the number to the methadone clinic to f/u. RN called [phone], phone recording statesnumber you have dialed is not in service. Pt agreed to call [facility] back with the number for the [...] understand him. States PCP may not understand Hungarian or that he may just be being [...] any question please contact the clinic at [phone] [facility]. Pt is also requesting for his Coordinator to give him a call back. If any questions please contact pt at [phone] documented in this encounter Plan of Treatment Not on file documented as of this encounter Visit Diagnoses Not on filedocumented in this encounter Additional Health Concerns Assessment Noted Time PHQ-9 Depression Total Score: 0 10/20/19 23 2:41 PM EST documented as of this encounter Care Teams Community Health Education Coordinator Relationship Specialty Start Date End Date Valery Berrios MD [address] [place] [address] PCP - General Internal Medicine 12/01/18 12/21/23 Vicenta Nielsen NP [address] [place] [address] PCP - General Family Medicine 12/22/23 [employer] 04/29/24 abigail mcneill University Relations RecruiterBehavioral Health Tech 10/18/24 documented as of this encounter
--- OUTSIDE RECORDS SUMMARY | 2024-12-05 19:13 | XMS_ITS | Encounter Summary ---
Author Organization [facility] Address [address] [place] [address] Care Team Providers Care Weld Engineer Name Role Phone Vicenta Nielsen MEDICAL ASSISTANT SECRETARY Primary Care Provider [phone] Encounter Details Date Type Department Care Team (Late st Contact Info) Description 08/21/[address] [facility] - Main Lab [address] [facility] [place] [address] Steven Naik MD [address] [place] [address] Cellulitis, unspecified Social History Tobacco Use Types [...] CBC auto differential (08/21/2024 12:00 AM EST) [facility] Signature WBC 6.4 4.8 - 10.8 K/mcL LAB HEMETOLOGY METHOD 08/21/2024 8:22 PM [facility] RBC 3.90(L) 4.50 - 5.50 M/mcL LAB HEMETOLOGY METHOD 08/21/2024 8:22 PM [facility] Hemoglobin 10.3(L) 13.5 - 17.5 g/dL LAB HEMETOLOGY METHOD 08/21/2024 8:22 PM [facility] Hematocrit 32.4(L) 42.0 - 54.0 % LAB HEMETOLOGY METHOD 08/21/2024 8:22 PM [facility] MCV 83.7 79.0 - 98.0 FL LAB HEMETOLOGY METHOD 08/21/2024 8:22 PM [facility] MCH 26.6(L) 27.0 - 32.0 pcg LAB HEMETOLOGY METHOD 08/21/2024 8:22 PM [facility] MCHC 31.8(L) 32.0 - 37.0 g/dL LAB HEMETOLOGY METHOD 08/21/2024 8:22 PM [facility] RDW 14.9 11.0 - 15.0 % LAB HEMETOLOGY METHOD 08/21/2024 8:22 PM [facility] Platelets 208 130 - 400 K/mcL LAB HEMETOLOGY METHOD 08/21/2024 8:22 PM [facility] MPV 11.8(H) 7.0 - 11.0 FL LAB HEMETOLOGY METHOD 08/21/2024 8:22 PM [facility] NRBC 0.0 <1.0 % LAB HEMETOLOGY METHOD 08/21/2024 8:22 PM [facility] NRBC Absolute 0.00 <0.10 K/mcL LAB HEMETOLOGY METHOD 08/21/2024 8:22 PM [facility] Neutrophils Relative 66.3 % LAB HEMETOLOGY METHOD 08/21/2024 8:22 PM [facility] Lymphocytes Relative 21.1 % LAB HEMETOLOGY METHOD 08/21/2024 8:22 PM [facility] Monocytes Relative 9.8 % LAB HEMETOLOGY METHOD 08/21/2024 8:22 PM [facility] Eosinophils Relative 2.0 % LAB HEMETOLOGY METHOD 08/21/2024 8:22 PM [facility] Basophils Relative 0.5 % LAB HEMETOLOGY METHOD 08/21/2024 8:22 PM [facility] Immature Granulocytes Relative 0.3 % LAB HEMETOLOGY METHOD 08/21/2024 8:22 PM [facility] Neutrophils Absolute 4.24 1.50 - 7.00 K/mcL LAB HEMETOLOGY METHOD 08/21/2024 8:22 PM [facility] Lymphocytes Absolute 1.35 1.00 - 5.00 K/mcL LAB HEMETOLOGY METHOD 08/21/2024 8:22 PM [facility] Monocytes Absolute 0.63 0.20 - 1.00 K/mcL LAB HEMETOLOGY METHOD 08/21/2024 8:22 PM [facility] Eosinophils Absolute 0.13 0.00 - 0.50 K/mcL LAB HEMETOLOGY METHOD 08/21/2024 8:22 PM [facility] Basophils Absolute 0.03 0.00 - 0.20 K/mcL LAB HEMETOLOGY METHOD 08/21/2024 8:22 PM [facility] Immature Granulocytes Absolute 0.02 0.00 - 0.03 K/mcL LAB HEMETOLOGY METHOD 08/21/2024 8:22 PM [facility] Blood Venous blood specimen / Unknown 08/21/2024 08/21/2024 8:09 PM EST Steven Naik MD LAB BLOOD ORDERABLES Final Re sult Performing Organization Address [facility]/ZIP Co de Phone Number [facility] [address] [place] [address], [place] [phone] * Creatine kinase (08/21/2024 12:00 AM EST) Pathologist [facility] Total CK 54 22 - 269 unit/L LAB CHEMISTRY METHOD 08/21/2024 8:29 PM [facility] Blood Venous blood specimen / Unknown 08/21/2024 08/21/2024 8:09 PM EST Steven Naik MD LAB BLOOD ORDERABLES Final Re sult Performing Organization Address [facility]/ZIP Co de Phone Number [facility] [address] [place] [address], [place] [phone] * (ABNORMAL) Comprehensive metabolic panel (08/21/2024 12:00 AM EST) [facility] Sodium 138 133 - 145 mmol/L LAB CHEMISTRY METHOD 08/21/2024 8:29 PM [facility] Potassium 4.5 3.5 - 5.5 mmol/L LAB CHEMISTRY METHOD 08/21/2024 8:29 PM [facility] Chloride 105 96 - 110 mmol/L LAB CHEMISTRY METHOD 08/21/2024 8:29 PM [facility] CO2 28 21 - 32 mmol/L LAB CHEMISTRY METHOD 08/21/2024 8:29 PM [facility] Anion Gap 5 3 - 11 LAB CHEMISTRY METHOD 08/21/2024 8:29 PM [facility] Glucose 130(H) 70 - 100 mg/dL LAB CHEMISTRY METHOD 08/21/2024 8:29 PM [facility] BUN 28(H) 5 - 25 mg/dL LAB CHEMISTRY METHOD 08/21/2024 8:29 PM [facility] Creatinine 1.02 0.70 - 1.30 mg/dL LAB CHEMISTRY METHOD 08/21/2024 8:29 PM [facility] eGFR 85 >=60 mL/min/1. 73m2 LAB CHEMISTRY METHOD 08/21/2024 8:29 PM [facility] Comment:Calculation based on the??Chronic Kidney Disease Epidemiology Collaboration (CKD-EPI) equation refit??without adjustment for race. BUN/Creatinine Ratio 27.5 LAB CHEMISTRY METHOD 08/21/2024 8:29 PM [facility] Calcium 9.4 8.5 - 10.5 mg/dL LAB CHEMISTRY METHOD 08/21/2024 8:29 PM [facility] AST (SGOT) 15 10 - 42 unit/L LAB CHEMISTRY METHOD 08/21/2024 8:29 PM [facility] ALT (SGPT) 19 10 - 60 unit/L LAB CHEMISTRY METHOD 08/21/2024 8:29 PM [facility] Alkaline Phosphatase 90 42 - 121 unit/L LAB CHEMISTRY METHOD 08/21/2024 8:29 PM [facility] Total Protein 7.6 6.0 - 8.0 g/dL LAB CHEMISTRY METHOD 08/21/2024 8:29 PM [facility] Albumin 3.9 3.2 - 5.0 g/dL LAB CHEMISTRY METHOD 08/21/2024 8:29 PM [facility] Total Bilirubin 0.3 0.0 - 1.4 mg/dL LAB CHEMISTRY METHOD 08/21/2024 8:29 PM [facility] Blood Venous blood specimen / Unknown 08/21/2024 08/21/2024 8:09 PM EST us Steven Mlapah MD LAB BLOOD ORDERABLES Final Re sult [facility] [address] [place] [address], documented in this encounter Visit Diagnoses Diagnosis Cellulitis, unspecified documented in this encounter Care Teams Weld Engineer Relationship Specialty Start Date End Date Vicenta Nielsen FNP [address] [place] [phone] PCP - General 05/26/24 documented as of this encounter
--- OUTSIDE RECORDS SUMMARY | 2024-12-05 19:13 | XMS_ITS | Encounter Summary ---
Author Organization [employer] Address [address] [place] [address] 7t [place] [address] Care Team Providers Care Fire Control Technician Name Role Phone Vicenta Nielsen NP Primary Care Provider [phone] Reason for Visit * Reason Onset Date Comments Durable Medical Equipment 08/18/2024 Encounter Details Date Type Department Care Team ([facility] st Contact Info) Description 08/18/2024 Telephone [facility] MEDICINE [address] [place] [address] Vicenta Nielsen NP [address] [place] [address] Durable Medical Equipment Social History Tobacco Use [...] leg and he feels insecure. Callback number [phone] documented in this encounter Plan of Treatment Not on file documented as of this encounter Visit Diagnoses Not on filedocumented in this encounter Additional Health Concerns Assessment Noted Time PHQ-9 Depression Total Score: 7 07/25/20 9:24 AM EDT documented as of this encounter Care Teams Fire Control Technician Relationship Specialty Start Date End Date Vicenta Nielsen NP [address] [place] [address] PCP - General Family Medicine 12/22/23 [employer] 04/29/24 abigail mcneill Advisory InternRetail Banking Manager 10/18/24 documented as of this encounter
--- OUTSIDE RECORDS SUMMARY | 2024-12-05 19:13 | XMS_ITS | Encounter Summary ---
Author Organization [employer] Address [address] [place] [address] 7 [place] [address] Care Team Providers Care Synthetic Cloth Binding Cutter Name Role Phone Vicenta Nielsen NP Primary Care Provider [phone] Reason for Visit * Reason Onset Date Comments FYI 10/12/2024 Encounter Details Date Type Department Care Team ([facility] st Contact Info) Description 10/12/2024 Telephone [facility]INE [address] [place] [address] Vicenta Nielsen NP [address] [place] [address] FYI Social History Tobacco Use Types Packs/Day [...] documented as of this encounter Care Teams Synthetic Cloth Binding Cutter Relationship Specialty Start Date End Date Vicenta Nielsen NP [address] [place] [address] PCP - General Family Medicine 12/22/23 [employer] 04/29/24 abigail mcneill Packaging Machine OperatorFirer Low Pressure 10/18/24 documented as of this encounter
--- OUTSIDE RECORDS SUMMARY | 2024-12-05 19:13 | XMS_ITS | Encounter Summary ---
Author Organization [employer] Address [address] [place] [address] 7t [place] [address] Care Team Providers Care Chaperone Name Role Phone Vicenta Nielsen NP Primary Care Provider [phone] Reason for Visit * Reason Onset Date Comments Lab Orders 10/31/2024 Encounter Details Date Type Department Care Team (Late st Contact Info) Description 10/31/2024 Telephone [facility] MEDICINE [address] [place] [address] Vicenta Nielsen NP [address] [place] [address] Lab Orders Social History Tobacco Use Types [...] is your housing situation today? I have anen-marie miller 12/17/[address] you [...] [facility]. Pt also c/o left sided internal rib [...] would like to have labs done at [facility] when he goes so that he can [...] documented as of this encounter Care Teams Chaperone Relationship Specialty Start Date End Date Vicenta Nielsen NP [address] [place] [address] PCP - General Family Medicine 12/22/23 [employer] 04/29/24 abigail mcneill TellerStrip Cleaner 10/18/24 documented as of this encounter
--- OUTSIDE RECORDS SUMMARY | 2024-12-05 19:13 | XMS_ITS | Encounter Summary ---
Author Organization [employer] Address [address] [place] [address] 7 [place] [address] Care Team Providers Care Dinkey Operator Name Role Phone Vicenta Nielsen NP Primary Care Provider [phone] Reason for Visit * Reason Onset Date Comments PT1 05/29/2024 Encounter Details Date Type Department Care Team ([facility] st Contact Info) Description 05/29/2024 Telephone [facility] MEDICINE [address] [place] [address] Vicenta Nielsen NP [address] [place] [address] PT1 Social History Tobacco Use Types Packs/Day [...] PM EDT Tc from pt requesting for [address] [place] [address] PT1 to be modified for Yes escort and 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 documented in this encounter Plan of Treatment Not on file documented as of this encounter Visit Diagnoses Not on filedocumented in this encounter Additional Health Concerns Assessment Noted Time PHQ-9 Depression Total Score: 5 01/04/20 10:57 AM EDT documented as of this encounter Care Teams Dinkey Operator Relationship Specialty Start Date End Date Vicenta Nielsen NP [address] [place] [address] PCP - General Family Medicine 12/22/23 [employer] 04/29/24 abigail mcneill Brush Maker MachineCorrections Nurse 10/18/24 documented as of this encounter
--- OUTSIDE RECORDS SUMMARY | 2024-12-05 19:13 | XMS_ITS | Encounter Summary ---
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, unspecified vessel or lesion type ([facility]) Vicenta Nielsen NP [address] [place] [address] Phone: tel: fax: [address] Phone: tel: fax: Referral ID Status Reason Start Date Expiration Date Visits Requested Visits Authorized [id number] Authorized Specialty Services Required 11/10/2024 11/10/2025 6 6 * Consultation (Routine) - Closed Specialty Diagnoses / Procedures Referred By Contac t Referred To Contact Physical Therapy Diagnoses Below-knee amputation of right lower extremity, initial encounter ([facility]) Vicenta Nielsen NP [address] [place] [address] Phone: tel: fax: [facility] [address] Phone: tel: fax: Referral ID Status Reason Start Date Expiration Date V isits Requested Visits Authorized [id number] Closed Specialty Services Required 11/10/2024 11/10/2025 20 20 Scheduling Instructions [facility] * Imaging (Routine) - Authorized Specialty Diagnoses / Procedures Referred By Contac t Referred To Contact Radiology Diagnoses Left flank pain Procedures US RENAL BI Vicenta Nielsen NP [address] [place] [address] Phone: tel: fax: [address] Phone: tel: fax: Referral ID Status Reason Start Date Expiration Date V isits Requested Visits Authorized [id number] Authorized 11/10/2024 11/10/2025 1 1 Reason for Visit * Reason Comments Follow-up Encounter Details Date Type Department Care Team (Late st Contact Info) Description 11/10/2024 1:45 PM EST Office Visit [facility] [address] [place] [address] Vicenta Nielsen NP [address] [place] [address] Hypertension, unspecified type (Primary Dx); Type 2 diabetes mellitus with hyperglycemia, with long-term current use of insulin ([facility]); Left flank pain; Below-knee amputation of right lower extremity, initial encounter ([facility]); Peripheral vascular disease ([facility]); 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, unspecified vessel or lesion type ([facility]); Iron deficiency anemia due to chronic blood loss; Palpitations; Essential (primary) hypertension; Type 2 diabetes mellitus with other circulatory complication, with long-term current use of insulin ([facility]); History of opioid abuse ([facility]) Social History Tobacco Use Types Packs/Day Years [...] in this encounter Progress Notes * Vicenta Nielsen, CLEANING HANDYMAN - 11/10/2024 1:45 PM EST Subjective Bam [...] List Diagnosis Chronic type B viral hepatitis ([facility]) Asthma Benign hypertension Opioid dependence ([facility]) Osteomyelitis ([facility]) Sepsis ([facility]) Cellulitis UTI (urinary tract infection) Anemia COPD mixed type ([facility]) Dyspnea on exertion Right elbow pain Wound infection after surgery Amputation of right lower extremity below knee ([facility]) Pelvic lymphadenopathy Hyperkalemia Acute blood loss anemia Dyslipidemia History of endocarditis History of opioid abuse ([facility]) Osteomyelitis of right foot ([facility]) Type 2 diabetes mellitus with hyperglycemia, with long-term current use of insulin ([facility]) Dysuria Hypertension Dietary counseling Exercise counseling Anxiety Panic attacks Essential (primary) hypertension Long-term current use of methadone for opiate dependence ([facility]) Osteomyelitis of toe (CMS/HCC) DM2 (diabetes mellitus, type 2) ([facility]) Chronic antibiotic suppression Pain of right hip Left flank pain Peripheral vascular disease (CMS/HCC) Coronary artery disease involving pilot point heart Review of Systems Constitutional: Positive for [...] Amputation of right lower extremity below knee ([facility]) Current Assessment & Plan Referral to pt for bilateral hip pain Relevant Orders Referral to Physical Therapy History of opioid abuse ([facility]) Overview Last Assessment & Plan: Home medications: [...] hyperglycemia, with long-term current use of insulin ([facility]) Overview Last Assessment & Plan: Medications: Lantus [...] Bmp ordered DM2 (diabetes mellitus, type 2) ([facility]) Current Assessment & Plan Continue current regimen Relevant Orders POCT Glucose (Completed) POCT HGB A1C (Completed) Comprehensive Metabolic Panel CBC auto differential Left flank pain Current Assessment & Plan Ddx includes msk pain, no hematuria, ultrasound ordered due to hx of renal calculi Relevant Orders US RENAL BI Peripheral vascular disease ([facility]) Coronary artery disease involving pilot point heart Relevant Orders Referral to Cardiology Comprehensive [...] 90 tablet 3 Blood Glucose Monitoring Suppl (Pretty in my Pocket (PRIMP) Lite) w/Device kit TEST BLOOD SUGAR FOUR TIMES DAILY Blood Pressure Monitoring (Blood Pressure Cuff) misc Use daily as prescribed 1 each 0 Continuous Blood Gluc Hide Worker (Graph[employer]Style [place]) device USE DIRECTED EVERY DAY Continuous Blood [...] DAYS 510 g 1 TRUEplus Lancets [facility]G [facility] TEST BLOOD SUGAR FOUR TIMES DAILY 100 each 11 No current facility-administered medications for this visit. documented in this encounter Miscellaneous Notes * Assessment & Plan Note - Vicenta Nielsen NP - 11/12/2024 7:18 PM ESTAssociated Problem(s): History of opioid abuse ([facility]) Tapering methadone out patient, tolerating * Assessment & Plan Note - Vicenta Nielsen NP - 11/12/2024 7:17 PM ESTAssociated Problem(s): Anemia Cbc ordered * Assessment & Plan Note - Vicenta Nielsen NP - 11/12/2024 7:17 PM ESTAssociated Problem(s): DM2 (diabetes mellitus, type 2) ([facility]) Continue current regimen * Assessment & Plan Note - Vicenta Nielsen NP - 11/12/2024 7:17 PM ESTAssociated Problem(s): Amputation of right lower extremity below knee ([facility]) Referral to pt for bilateral hip pain [...] Left flank pain Expected: 11/10/2024, Expires: 11/10/2025 Scheduled Referrals Name Type Priority Associated Diagnoses Orde r Schedule Referral to Physical Therapy Outpatient Referral Routine Below-knee amputation of right lower extremity, initial encounter ([facility]) Expected: 11/10/2024 (Approximate), Expires: 11/10/2025 Referral to Cardiology Outpatient Referral Routine 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, unspecified vessel or lesion type ([facility]) Expected: 11/10/2024 (Approximate), Expires: 11/10/2025 documented as of this encounter Procedures Procedure Name Priority Date/Time Associated Diagnosis Comments TSH W/REFLEX TO FT4 Routine 11/15/2024 1 1:01 AM EST Palpitations CBC WITH AUTO DIFFERENTIAL Routine 11/15/2024 11:01 AM EST Type 2 diabetes mellitus with hyperglycemia, with long-term current use of insulin ([facility]) 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, unspecified vessel or lesion type ([facility]) IRON AND TOTAL IRON BINDING CAPACITY Routine 11/15/2024 11:01 AM EST Hypertension, unspecified type 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, unspecified vessel or lesion type ([facility]) Iron deficiency anemia due to chronic blood loss COMPREHENSIVE METABOLIC PANEL Routine 11/15/2024 11:01 AM EST Type 2 diabetes mellitus with hyperglycemia, with long-term current use of insulin ([facility]) 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, unspecified vessel or lesion type ([facility]) POCT GLYCATED HEMOGLOBIN, TOTAL Routine 11/10/2024 2:12 PM EST Type 2 diabetes mellitus with hyperglycemia, with long-term current use of insulin ([facility]) POCT GLUCOSE Routine 11/10/2024 2:10 PM EST Type 2 diabetes mellitus with hyperglycemia, with long-term current use of insulin ([facility]) documented in this encounter Results * TSH W/Reflex to FT4 (11/15/2024 11:01 AM EST) TSH reflex Free T4 1.53 0.32 - 4.0 uIU/mL [facility] Blood Venous blood specimen / Unknown 11/15/2024 11:01 AM EST 11/15/2024 11:10 AM EST us Vicenta Nielsen CLEANING HANDYMAN LAB BLOOD ORDERABLES Final Resul t Performing Organization Address [facility]/ZIP Co de Phone Number [facility] [address] [place] [phone] * (ABNORMAL) Iron And Total Iron Binding Capacity (11/15/2024 11:01 AM EST) Iron 43(L) 45 - 160 mcg/dL [facility] Total Iron Binding Capacity 316 228 - 428 mcg/dL [facility] Percent Iron Saturation 14(L) 15 - 50 % [facility] Unsaturated Iron Binding 273 ug/dL [facility] Blood Venous blood specimen / Unknown 11/15/2024 11:01 AM EST 11/15/2024 11:10 AM EST us Vicenta Nielsen CLEANING HANDYMAN LAB BLOOD ORDERABLES Final Resul t Performing Organization Address [facility] Co de Phone Number [facility] [address] [place] [phone] * (ABNORMAL) CBC auto differential (11/15/2024 11:01 AM EST) White Blood Count 8.6 4.8 - 10.8 X10*3/uL [facility] Red Blood Count 3.97(L) 4.60 - 5.80 X10*6/uL [facility] Hemoglobin 11.1(L) 14.0 - 18.0 g/dl [facility] Hematocrit 33.5(L) 42.0 - 52.0 % [facility] Mean Corpuscular Volume 84.4 80.0 - 98.0 fL [facility] Mean Corpuscular Hemoglobin 28.0 27.0 - 33.0 pg [facility] Mean Corpuscular HGB Conc 33.1 31.0 - 36.0 g/dl [facility] Red Cell Distribution Width 13.7 11.0 - 16.0 % [facility] Platelet Count 239 160 - 400 X10*3/uL [facility] Mean Platelet Volume 10.7 9.4 - 12.4 fL [facility] Neutrophils Percent Auto 73.0 45 - 73 % [facility] Imm Gran Pct Auto 0.3 0.0 - 0.4 % [facility] Lymphocytes Percent Auto 15.2(L) 20 - 40 % [facility] Monocytes Percent Auto 9.0 2 - 11 % [facility] Eosinophils Percent Auto 1.7 0 - 4 % [facility] Basophils Percent Auto 0.8 0 - 2 % [facility] NRBC Pct Auto 0.0 0.0 - 0.2 /100WBC [facility] Neutrophils Absolute Auto 6.3 2.0 - 8.3 x10*3/uL [facility] Imm Gran Abs Auto 0.03 0.00 - 0.03 X10*3/uL [facility] Lymphocytes Absolute Auto 1.3 1.2 - 4.9 X10*3/uL [facility] Monocytes Absolute Auto 0.8 0.1 - 1.2 X10*3/uL [facility] Eosinophils Absolute Auto 0.2 0.0 - 0.4 X10*3/uL [facility] Basophils Absolute Auto 0.1 0.0 - 0.2 X10*3/uL [facility] NRBC Abs Auto 0.000 0.0 - 0.012 X10*3/uL [facility] Blood Venous blood specimen / Unknown 11/15/2024 11:01 AM EST 11/15/2024 11:10 AM EST us Vicenta Nielsen NP LAB BLOOD ORDERABLES Final Resul t [facility] [address] [place] [phone] * (ABNORMAL) Comprehensive Metabolic Panel (11/15/2024 11:01 AM EST) Sodium 135 135 - 145 mmol/L [facility] Potassium 5.0 3.3 - 5.1 mmol/L [facility] Chloride 103 96 - 108 mmol/L [facility] Carbon Dioxide 27 22 - 29 mmol/L [facility] Anion Gap 10(L) 12 - 20 [facility] Urea Nitrogen (BUN) 25(H) 9 - 16 mg/dL [facility] Creatinine, Serum 0.95 0.5 - 1.4 mg/dL [facility] Estimated Glomerular Filt Rate >60 [facility] Comment:Chronic Kidney Disea se: Estimated GFR < 60 mL/min/1.50q1Vcgkdw Kidney Disease: Estimated GFR < 15 mL/min/1.73m2 Glucose 185(H) 60 - 115 mg/dL [facility] Calcium 8.9 8.4 - 10.2 mg/dL [facility] Bilirubin, Total 0.3 0.0 - 1.0 mg/dL [facility] Aspartate Amino Transferase 14 5 - 37 U/L [facility] Alanine Aminotransferase 10 0 - 40 U/L [facility] Total Protein 7.9 6.5 - 8.0 g/dL [facility] Albumin Level 4.0 3.5 - 5.0 g/dL [facility] Alkaline Phosphatase 93 39 - 117 U/L [facility] Blood Venous blood specimen / Unknown 11/15/2024 11:01 AM EST 11/15/2024 11:10 AM EST us Vicenta Nielsen NP LAB BLOOD ORDERABLES Final Resul t [facility] [address] [place] [phone] * (ABNORMAL) POCT HGB A1C (11/10/2024 2:12 PM EST) Hemoglobin A1C 7.0(A) 4.0 - 6.0 % [employer] Lot # [id number] Lot# Expiration Date [id number] Blood 11/10/2024 2:12 PM EST Vicenta Nielsen CLEANING HANDYMAN POINT OF CARE TEST ENTER/EDIT OR DERABLES Final Result * POCT Glucose (11/10/2024 2:10 PM EST) Glucose Blood, POC 170 60 - 200 mg/dL [employer] Lot # [id number] Lot# Expiration Date [id number] Blood Capillary blood specimen / Unknown 11/10/2024 2:10 PM EST Vicenta Nielsen CLEANING HANDYMAN POINT OF CARE TEST ENTER/EDIT OR DERABLES Final Result documented in this encounter Visit Diagnoses Diagnosis Hypertension, unspecified type- Primary Type 2 diabetes mellitus with hyperglycemia, with long-term current use of insulin ([facility]) Left flank pain Abdominal pain, unspecified site Below-knee amputation of right lower extremity, initial encounter ([facility]) Peripheral vascular disease ([facility]) Unspecified peripheral vascular disease 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, unspecified vessel or lesion type ([facility]) Iron deficiency anemia due to chronic blood loss Iron deficiency anemia secondary to blood loss (chronic) Palpitations Essential (primary) hypertension Unspecified essential hypertension Type 2 diabetes mellitus with other circulatory complication, with long-term current use of insulin ([facility]) History of opioid abuse ([facility]) documented in this encounter Additional Health Concerns Assessment Noted Time PHQ-9 Depression Total Score: 7 07/25/20 24 9:24 AM EDT documented as of this encounter Care Teams Water Quality Assistant Relationship Specialty Start Date End Date Vicenta Nielsen NP [address] [place] [address] PCP - General Family Medicine 12/22/23 [employer] 04/29/24 abigail mcneill Proposal Review AnalystTie Fastener 10/18/24 documented as of this encounter
--- OUTSIDE RECORDS SUMMARY | 2024-12-05 19:13 | XMS_ITS | Encounter Summary ---
Author Organization [facility] Address [address] [place] [address] Care Team Providers Care Data Analysis Intern Name Role Phone Vicenta Nielsen CHILD HEALTH ASSOCIATE Primary Care Provider [phone] Encounter Details Date Type Department Care Team (Late st Contact Info) Description 08/30/2024 Lab Requisition [facility] - Main Lab [address] [facility] [place] [address] Mary Song PA [address] [address] Cellulitis, unspecified Social History Tobacco Use Types [...] CBC auto differential (08/29/2024 12:00 AM EST) [facility] WBC 6.7 4.8 - 10.8 K/mcL LAB HEMETOLOGY METHOD 08/30/2024 9:13 AM [facility] RBC 3.90(L) 4.50 - 5.50 M/mcL LAB HEMETOLOGY METHOD 08/30/2024 9:13 AM [facility] Hemoglobin 10.5(L) 13.5 - 17.5 g/dL LAB HEMETOLOGY METHOD 08/30/2024 9:13 AM [facility] Hematocrit 32.8(L) 42.0 - 54.0 % LAB HEMETOLOGY METHOD 08/30/2024 9:13 AM [facility] MCV 84.5 79.0 - 98.0 FL LAB HEMETOLOGY METHOD 08/30/2024 9:13 AM [facility] MCH 27.1 27.0 - 32.0 pcg LAB HEMETOLOGY METHOD 08/30/2024 9:13 AM [facility] MCHC 32.0 32.0 - 37.0 g/dL LAB HEMETOLOGY METHOD 08/30/2024 9:13 AM [facility] RDW 14.9 11.0 - 15.0 % LAB HEMETOLOGY METHOD 08/30/2024 9:13 AM [facility] Platelets 206 130 - 400 K/mcL LAB HEMETOLOGY METHOD 08/30/2024 9:13 AM [facility] MPV 12.6(H) 7.0 - 11.0 FL LAB HEMETOLOGY METHOD 08/30/2024 9:13 AM [facility] NRBC 0.0 <1.0 % LAB HEMETOLOGY METHOD 08/30/2024 9:13 AM [facility] NRBC Absolute 0.00 <0.10 K/mcL LAB HEMETOLOGY METHOD 08/30/2024 9:13 AM [facility] Neutrophils Relative 63.6 % LAB HEMETOLOGY METHOD 08/30/2024 9:13 AM [facility] Lymphocytes Relative 20.7 % LAB HEMETOLOGY METHOD 08/30/2024 9:13 AM [facility] Monocytes Relative 11.6 % LAB HEMETOLOGY METHOD 08/30/2024 9:13 AM [facility] Eosinophils Relative 3.0 % LAB HEMETOLOGY METHOD 08/30/2024 9:13 AM [facility] Basophils Relative 1.0 % LAB HEMETOLOGY METHOD 08/30/2024 9:13 AM [facility] Immature Granulocytes Relative 0.1 % LAB HEMETOLOGY METHOD 08/30/2024 9:13 AM [facility] Neutrophils Absolute 4.26 1.50 - 7.00 K/mcL LAB HEMETOLOGY METHOD 08/30/2024 9:13 AM [facility] Lymphocytes Absolute 1.39 1.00 - 5.00 K/mcL LAB HEMETOLOGY METHOD 08/30/2024 9:13 AM [facility] Monocytes Absolute 0.78 0.20 - 1.00 K/mcL LAB HEMETOLOGY METHOD 08/30/2024 9:13 AM [facility] Eosinophils Absolute 0.20 0.00 - 0.50 K/mcL LAB HEMETOLOGY METHOD 08/30/2024 9:13 AM [facility] Basophils Absolute 0.07 0.00 - 0.20 K/mcL LAB HEMETOLOGY METHOD 08/30/2024 9:13 AM [facility] Immature Granulocytes Absolute 0.01 0.00 - 0.03 K/mcL LAB HEMETOLOGY METHOD 08/30/2024 9:13 AM [facility] Blood Venous blood specimen / Unknown 08/29/2024 08/30/2024 9:03 AM EST us Mary ROE LAB BLOOD ORDERABLES Final Result Performing Organization Address [facility]/ZIP Co de Phone Number [facility] [address] [place] [address], [place] [phone] * Creatine kinase (08/29/2024 12:00 AM EST) Pathologist [facility] Total CK 63 22 - 269 unit/L LAB CHEMISTRY METHOD 08/30/2024 9:25 AM EST [facility] Blood Venous blood specimen / Unknown 08/29/2024 08/30/2024 9:03 AM EST us Mary ROE LAB BLOOD ORDERABLES Final Result Performing Organization Address [facility]/ZIP Co de Phone Number [facility] [address] [place] [address], [place] [phone] * (ABNORMAL) Comprehensive metabolic panel (08/29/2024 12:00 AM EST) [facility] Sodium 138 133 - 145 mmol/L LAB CHEMISTRY METHOD 08/30/2024 9:25 AM [facility] Potassium 4.8 3.5 - 5.5 mmol/L LAB CHEMISTRY METHOD 08/30/2024 9:25 AM [facility] Chloride 105 96 - 110 mmol/L LAB CHEMISTRY METHOD 08/30/2024 9:25 AM [facility] CO2 27 21 - 32 mmol/L LAB CHEMISTRY METHOD 08/30/2024 9:25 AM [facility] Anion Gap 6 3 - 11 LAB CHEMISTRY METHOD 08/30/2024 9:25 AM [facility] Glucose 104(H) 70 - 100 mg/dL LAB CHEMISTRY METHOD 08/30/2024 9:25 AM [facility] BUN 26(H) 5 - 25 mg/dL LAB CHEMISTRY METHOD 08/30/2024 9:25 AM [facility] Creatinine 1.10 0.70 - 1.30 mg/dL LAB CHEMISTRY METHOD 08/30/2024 9:25 AM [facility] eGFR 77 >=60 mL/min/1. 73m2 LAB CHEMISTRY METHOD 08/30/2024 9:25 AM [facility] Comment:Calculation based on the??Chronic Kidney Disease Epidemiology Collaboration (CKD-EPI) equation refit??without adjustment for race. BUN/Creatinine Ratio 23.6 LAB CHEMISTRY METHOD 08/30/2024 9:25 AM [facility] Calcium 9.4 8.5 - 10.5 mg/dL LAB CHEMISTRY METHOD 08/30/2024 9:25 AM [facility] AST (SGOT) 16 10 - 42 unit/L LAB CHEMISTRY METHOD 08/30/2024 9:25 AM [facility] ALT (SGPT) 24 10 - 60 unit/L LAB CHEMISTRY METHOD 08/30/2024 9:25 AM [facility] Alkaline Phosphatase 91 42 - 121 unit/L LAB CHEMISTRY METHOD 08/30/2024 9:25 AM [facility] Total Protein 7.7 6.0 - 8.0 g/dL LAB CHEMISTRY METHOD 08/30/2024 9:25 AM [facility] Albumin 4.0 3.2 - 5.0 g/dL LAB CHEMISTRY METHOD 08/30/2024 9:25 AM [facility] Total Bilirubin 0.2 0.0 - 1.4 mg/dL LAB CHEMISTRY METHOD 08/30/2024 9:25 AM [facility] Blood Venous blood specimen / Unknown 08/29/2024 08/30/2024 9:03 AM EST Mary ROE LAB BLOOD ORDERABLES Final Result [facility] [address] [place] [address], documented in this encounter Visit Diagnoses Diagnosis Cellulitis, unspecified documented in this encounter Care Teams Data Analysis Intern Relationship Specialty Start Date End Date Vicenta Nielsen FNP [address] [place] [phone] PCP - General 05/26/24 documented as of this encounter
--- OUTSIDE RECORDS SUMMARY | 2024-12-05 19:13 | XMS_ITS | Encounter Summary ---
Author Organization [email or web address] Address [address] [place] [address] [address] [place] [address] Care Team Providers Care Transition Mgr Name Role Phone Vicenta Nielsen NP Primary Care Provider [phone] Reason for Visit * Reason Onset Date Comments Referral 10/31/2024 Encounter Details Date Type Department Care Team ([facility] st Contact Info) Description 10/31/2024 Telephone [facility] MEDICINE [address] [place] [address] Vicenta Nielsen NP [address] [place] [address] Referral Social History Tobacco Use Types Packs/Day [...] in a lot of pain. Contact pt: [phone] documented in this encounter Plan of Treatment Not on file documented as of this encounter Visit Diagnoses Not on filedocumented in this encounter Additional Health Concerns Assessment Noted Time PHQ-9 Depression Total Score: 7 07/25/20 9:24 AM EDT documented as of this encounter Care Teams Transition Mgr Relationship Specialty Start Date End Date Vicenta Nielsen NP [address] [place] [phone] PCP - General Family Medicine 12/22/23 [employer] 04/29/24 abigail mcneill EtiologistBundler [employer]al [employer] 10/18/24 documented as of this encounter
== END 2024-12-05 15:11 | disposition home or self-care (01) ==
LOC: HO.US 15:10
PROVIDERS: PCP Nurse Practitioner Family; Visit Provider Nurse Practitioner Family
DX: R10.9 Unspecified abdominal pain (principal)
CPT/HCPCS: 76775

== ENCOUNTER → 2024-12-05 15:12 | Outpatient (BNV) | payer MEDICAID, SELFPAY | PROVIDERS: PCP Nurse Practitioner Family; Visit Provider Radiology Diagnostic Radiology | DX: R10.9 Unspecified abdominal pain (principal) | CPT/HCPCS: 76775 ==

== ENCOUNTER 2024-12-15 09:52 | Outpatient (AMB) | payer MEDICAID, SELFPAY ==
--- NOTE | 2024-12-15 09:54 | MHC.OFFVIS ---
Vital Signs 12/15/24 10:03 BMI Reason not done Patient refused/unable BP 118/68 Blood Pressure Location Rt brachial Position Sitting Pulse 81 Pulse Source Pulse Oximeter Pulse Oximetry (%) 95 Oxygen Delivery Method Room Air Intake Visit Reasons: T2DM Intake Note: Patient present today to follow up on Type 2 Diabetes Mellitus. Last Diabetic Eye exam: March 2024 Last Podiatry Visit: Does not see a Utility Forester Random Glucose: 145 mg/dl HgA1C: 7.2% 12/15/2024 pt states that his blood sugar has been higher for the past couple months. Wash Rack Operator Required: No Accompanied by: Self / Same As Patient Allergies bee venom protein (honey bee) Allergy (Severe, Verified 12/15/24 10:00) Anaphylaxis erythromycin base Allergy (Intermediate, Verified 12/15/24 10:00) Rash Iodinated Contrast Media Adverse Reaction (Intermediate, Verified 12/15/24 10:00) Shortness of Breath HPI Comments Details: 59-year-old wheelchair bound, type 2 diabetic seen for follow up. He has a past medical history of hypertension, opioid use disorder, hyperlipidemia, peripheral vascular disease, osteomyelitis. He was last seen by my colleague in September. This is my 1st visit with the patient. His hemoglobin A1c today is 7.2% Current regimen-she self adjusted medications since his last visit. He reports the following regimen for the past month: Lantus 20 units twice a day, Humalog sliding scale written down at home but he does not have it with him. He says most of the time he is using 15 units of Humalog before meals. Patient says sometimes he gets a low blood sugar and treats this with juice or soda. He also says that the timing of the Lantus injections can vary. He was diagnosed with diabetes in approximately 2008. Previous medications: Metformin and Actos He had recurrent pancreatitis on GLP 1. Reviewed sensor data on phone: >250 28% 181-250 39% 70-180 31% 54-59 2% <54 0% 8.2% GMI 92% active He has postprandial hyperglycemia and hypoglycemia overnight. Eats yogurt at breakfast Eats wraps at lunch Makes pasta sometimes for dinner with protein and sauce. He eats corn chips at night sometimes. Current regimen - he self adjusted his medications since his last visit. ROS: Constitutional: No unexplained weight loss, fever, chills, fatigue or night sweats. Respiratory: No shortness of breath Cardiovascular: No chest pain Gastrointestinal: No anorexia, nausea, vomiting or diarrhea. No abdominal pain Neurologic: No headache, dizziness, syncope Skin: No rash Physical exam: Constitutional: Alert, in no distress. Head: Normocephalic. Neck: Supple, Full range of motion. No lymphadenopathy. No palpable masses. Respiratory: Clear to auscultation. Cardiovascular: Regular rate and rhythm. S1-S2 regular. [facility] Medical History (Updated 12/15/24 @ 13:00 by BHUPINDER Reyes) Type 2 diabetes mellitus with insulin therapy Diabetes Osteomyelitis Sepsis History of opioid abuse Hx of hepatitis C Amputated toe Osteomyelitis of great toe of right foot Uncontrolled diabetes mellitus with hyperglycemia Osteomyelitis Asthma Cellulitis High cholesterol Kidney stones HTN (hypertension) Surgical History History of amputation of left foot through metatarsal bone History of right lower limb amputation History of lithotripsy Social History Household Members: Family Housing: House Do you presently have visiting nurse or other home services: Yes ([facility] and ASSISTANT PROFESSOR OF LIFE SCIENCES) Patient Tobacco Use Status: Former Tobacco user Tobacco use type: Cigarette Second Hand Smoke Exposure: No Substance Use Type: Crack/Cocaine and Marijuana Advance Directives Date on File: 07/12/24 service: No Current occupational status: unemployed Physical Exam Vital Signs: Last Vital Signs Pulse 81 12/15/24 10:03 BP 118/68 12/15/24 10:03 Pulse Ox 95 12/15/24 10:03 Oxygen Delivery Method Room Air 12/15/24 10:03 Results AMB Hemoglobin A1c AMB Hemoglobin A1c 7.2 % Last Edit by Joan Maldonado CMA on 12/15/24 10:34 Results Reviewed Results Reviewed: Laboratory Last Values Glucose (Clinic) 145 mg/dL (60-115) H 12/15/24 10:10 Hgb A1c (Clinic) 7.2 % (4.0-6.0) H 12/15/24 10:15 Laboratory Tests 06/02/24 06/02/24 07/11/24 11:49 11:59 12:47 Sodium Potassium Chloride Carbon Dioxide Anion Gap BUN Creatinine Estimated GFR Random Glucose Hemoglobin A1c % 6.3 H Triglycerides 61 Cholesterol 85 LDL Cholesterol, Calc 43 HDL Cholesterol 30 L Urine Creatinine 75.26 Urine Microalbumin 10.0 Microalb/Creat Ratio 13.2 07/24/24 12:44 Sodium 138 Potassium 4.7 Chloride 106 Carbon Dioxide 27 Anion Gap 10 L BUN 29 H Creatinine 0.83 Estimated GFR > 60 Random Glucose 149 H Hemoglobin A1c % Triglycerides Cholesterol LDL Cholesterol, Calc HDL Cholesterol Urine Creatinine Urine Microalbumin Microalb/Creat Ratio Assessment & Plan Assessment & Plan (1) Type 2 diabetes mellitus with insulin therapy: Code(s): E11.9 - Type 2 diabetes mellitus without complications; Z79.4 - termite control technician (current) use of insulin Category: Medical Plan 59-year-old male with suboptimally controlled type 2 diabetes. GMI higher than A1c at this time. Advised patient to stop Lantus and switch to Tresiba 40 units at bedtime. Continue sliding scale for lispro insulin before meals. Bring a copy of the scale to the next appointment so we can adjust things if needed. If you experience low blood sugar, treat this by eating a chewable fruit candy like skittles or jelly beans (about 8 pieces), 4 ounces (1/2 cup) of fruit juice (not diet), 1 tablespoon of honey or 4 glucose tablets or 1 pack of glucose gel. If your blood sugar is under 55, take double the amount of one of the above. Recheck your blood sugar in 15 minutes. Declined referral to staff development educator. Diabetic diet reviewed with the patient. Follow up in 1 month. Orders: Orders AMB Hemoglobin A1c Today E11.9 - Type 2 diabetes mellitus without complications, Z79.4 - skilled nursing (current) use of insulin Medications: New insulin degludec (Tresiba FlexTouch U-100 insulin) 40 units (0.4 mL) subcut BEDTIME 15 mL 4RF Discontinued insulin glargine (Lantus Solostar U-100 Insulin) Discontinued Reason: Doctor's Order 20 units (0.2 mL) subcut BID 30 days 15 mL 3RF Coding Level of Care Code Est Pt Level 4 (08718) Complex EM visit Add On G2211 Diagnoses Type 2 diabetes mellitus with insulin therapy E11.9; Z79.4
[2024-12-15 10:03] VITALS: BP 118/68; PULSE 81; O2SAT 95
[2024-12-15 10:14] LABS: Glucose, Whole Blood 145 mg/dL (60-115)
--- OUTSIDE RECORDS SUMMARY | 2024-12-15 11:04 | XMS_ITS | Encounter Summary ---
Author Organization [employer] Address [address] [facility] 7t [place] [address] Care Team Providers Care Intermediate Project Manager Name Role Phone Vicenta Nielsen NP Primary Care Provider [phone] Encounter Details Date Type Department Care Team ([facility] st Contact Info) Description 12/15/2024 Population Health Risk Score [facility] () Department [address] [id number] Provider, Population Health Generic Social History Tobacco Use Types Packs/Day Years [...] as of this encounter Plan of Treatment Upcoming Encounters Date Type Department Care Team (Late st Contact Info) Description 12/20/2024 11:15 AM EDT Office Visit [facility] [address] [place] [address] Vicenta Nielsen NP 230 [place] [address] documented as of this encounter Visit Diagnoses Not on filedocumented in this encounter Additional Health Concerns Assessment Noted Time PHQ-9 Depression Total Score: 7 07/25/20 24 9:24 AM EDT documented as of this encounter Care Teams Intermediate Project Manager Relationship Specialty Start Date End Date Vicenta Nielsen NP [address] [place] [address] PCP - General Family Medicine 12/22/23 [employer] 04/29/24 abigail mcneill Accredited Pharmacy TechnicianTool Drawing Checker 10/18/24 documented as of this encounter
--- OUTSIDE RECORDS SUMMARY | 2024-12-15 11:04 | XMS_ITS | Encounter Summary ---
Author Organization [employer] Address [address] [place] [address] 7t [place] [address] Care Team Providers Care Roller Mill Operator Name Role Phone Vicenta Nielsen NP Primary Care Provider [phone] Reason for Visit * Reason Comments Care Coordination CHW outreach for SDO H [id number] completed Encounter Details Date Type Department Care Team (Latest Contact Info) Description 12/01/2024 Patient Outreach [facility] [address] [place] [address] Vicenta Nielsen, JUSTINO [address] [place] [address] Care Coordination (CHW outreach for SDOH [id number] completed /) Social History Tobacco Use Types [...] send out in behalf of patient for [facility] appt. Update 6 time a month to [facility] [id number] Viola Barbosa [place]. Patient verbalizes understanding, and able to agree with plan to follow up. Patient educated on extended clinic hours on Mondays through Wednesdays, and Walk-In Urgent Care Located in [facility]. Patient provided with after-hours line for [facility], , which offer night time triage service and optionto transfer to food preparation kitchen aide provider if needed. documented in this encounter Plan of Treatment Upcoming Encounters Date Type Department Care Team (Late st Contact Info) Description 12/20/2024 11:15 AM EDT Office Visit [facility] MED[facility] [address] [place] [address] Vicenta Nielsen NP [address] [place] [address] documented as of this encounter Visit Diagnoses Not on filedocumented in this encounter Additional Health Concerns Assessment Noted Time PHQ-9 Depression Total Score: 7 07/25/20 24 9:24 AM EDT documented as of this encounter Care Teams Roller Mill Operator Relationship Specialty Start Date End Date Vicenta Nielsen NP [address] [place] [address] PCP - General Family Medicine 12/22/23 Turn 04/29/24 abigail mcneill Mailroom AssociateDesk Reporter 10/18/24 documented as of this encounter
--- OUTSIDE RECORDS SUMMARY | 2024-12-15 11:04 | XMS_ITS | Encounter Summary ---
Author Organization [employer] Address [address] [place] [address] 7t [place] [address] Care Team Providers Care Transformation Consultant Name Role Phone Vicenta Nielsen NP Primary Care Provider [phone] Reason for Visit * Reason Onset Date Comments Referral 11/15/2024 Encounter Details Date Type Department Care Team ([facility] st Contact Info) Description 11/15/2024 Telephone [facility] [address] [place] [address] Vicenta Nielsen NP [address] [place] [address] Referral Social History Tobacco Use Types Packs/Day [...] all set, referral and notes faxed to [place] [address] FAX [phone]. Letter mailed to patient. * Telephone Encounter [...] but pt wants to be seen at [facility]. Pt asking that the referral be placed [...] Description 12/20/2024 11:15 AM EDT Office Visit [facility] [address] [place] [address] Vicenta Nielsen NP [address] [place] [address] documented as of this encounter Visit Diagnoses Not on filedocumented in this encounter Additional Health Concerns Assessment Noted Time PHQ-9 Depression Total Score: 7 07/25/20 24 9:24 AM EDT documented as of this encounter Care Teams Transformation Consultant Relationship Specialty Start Date End Date Vicenta Nielsen NP [address] [place] [address] PCP - General Family Medicine 12/22/23 [employer] 04/29/24 abigail mcneill Information Systems Security OfficerCinder Block Maker 10/18/24 documented as of this encounter
--- OUTSIDE RECORDS SUMMARY | 2024-12-15 11:04 | XMS_ITS | Encounter Summary ---
Author Organization [employer] Address [address] [place] [address] 7t [place] [address] Care Team Providers Care Superintendent Maintenance Name Role Phone Vicenta Nielsen NP Primary Care Provider [phone] Reason for Visit * Reason Onset Date Comments PT-1 12/01/2024 Encounter Details Date Type Department Care Team ([facility] st Contact Info) Description 12/01/2024 Telephone [facility] [address] [place] [address] Vicenta Nielsen NP [address] [place] [address] PT-1 Social History Tobacco Use Types Packs/Day [...] encounter Miscellaneous Notes * Telephone Encounter - Lucian Child - 12/14/2024 3:33 PM EDT Tc from pt requesting a call back regarding Status of prior message. Contact pt at [phone] * Telephone Encounter - Jacobo Ross - 12/01/2024 11:59 AM EST Patient calling requesting PT1 Home Address verified: Y/N: Yes Provider name or facility name: [address] [address] Escort needed: Y/N: Yes Do you have a wheelchair: Y/N: Yes If yes- Manual or electric: Electric Visits: (amount of visits) ( x monthly, weekly, daily) 5 times a month documented in this encounter Plan of Treatment Upcoming Encounters Date Type Department Care Team ([facility] st Contact Info) Description 12/20/2024 11:15 AM EDT Office Visit [facility] [address] [place] [address] Vicenta Nielsen NP [address] [place] [address] documented as of this encounter Visit Diagnoses Not on filedocumented in this encounter Additional Health Concerns Assessment Noted Time PHQ-9 Depression Total Score: 7 07/25/20 24 9:24 AM EDT documented as of this encounter Care Teams Superintendent Maintenance Relationship Specialty Start Date End Date Vicenta Nielsen NP [address] [place] [address] PCP - General Family Medicine 12/22/23 Flash Auto Detailing 04/29/24 abigail mcneill Insurance Operations RepUnion Laborer 10/18/24 documented as of this encounter
--- OUTSIDE RECORDS SUMMARY | 2024-12-15 11:04 | XMS_ITS | Encounter Summary ---
Author Organization [employer] Address [address] [place] [address] 7 [place] [address] Care Team Providers Care Professor Of Biblical Studies Name Role Phone Valery Berrios MD Primary Care Provider [phone] Vicenta Nielsen NP Primary Care Provider [phone] Reason for Visit * Reason Onset Date Comments PT1 07/21/2023 Encounter Details Date Type Department Care Team ([facility] st Contact Info) Description 07/21/2023 Telephone [facility] & PEDS [address] [place] [address] Valery Berrios MD [address] [place] [address] PT1 Social History Tobacco Use Types Packs/Day Years Used Date Smoking Tobacco: Every Day Cigarettes Smokeless Tobacco: Never Depression Answer Date Recorded Patient Health Questionnaire-9 Score 0 10/20/2022 Housing Stability Answer Date Recorded What is your housing situation today? I do not have housing (Staying with others, in a hotel, in a care home, living outside on the street, on [...] - 07/21/2023 2:49 PM EDT See lockhart maynor with ICP requesting PT1 for pt Date: 08/11 Time: 3:45 pm Visits: n/a Address: [address] [place] [address] Facility: [facility], Dr. Kimmy Vuong [facility] Chair: n/a Tinner Helper Needed: no Pick-up location confirmed: [address] [place] [address] documented in this encounter Plan of Treatment Upcoming Encounters Date Type Department Care Team (Late st Contact Info) Description 12/20/2024 11:15 AM EDT Office Visit [facility] [address] [place], [place] [phone] Vicenta Nielsen NP [address] [place], [place] [phone] documented as of this encounter Visit Diagnoses Not on filedocumented in this encounter Additional Health Concerns Assessment Noted Time PHQ-9 Depression Total Score: 0 10/20/19 23 2:41 PM EST documented as of this encounter Care Teams Professor Of Biblical Studies Relationship Specialty Start Date End Date Valery Berrios MD [address] [place] [address] PCP - General Internal Medicine 12/01/18 12/21/23 Vicenta Nielsen NP [address] [place] [address] PCP - General Family Medicine 12/22/23 [employer] 04/29/24 abigail mcneill Sap DeveloperDistrict Manager Major Accounts Sales 10/18/24 documented as of this encounter
--- OUTSIDE RECORDS SUMMARY | 2024-12-15 11:04 | XMS_ITS | Encounter Summary ---
Author Organization [employer] Address [address] [place] [address] 7 [place] [address] Care Team Providers Care Process Worker Name Role Phone Vicenta Nielsen NP Primary Care Provider [phone] Reason for Visit * Reason Onset Date Comments Med Refill 12/01/2024 Encounter Details Date Type Department Care Team (Late st Contact Info) Description 12/01/2024 Refill [facility] [address] [place] [address] Vicenta Nielsen NP [address] [place] [address] Type 2 diabetes mellitus without complication, with long-term current use of insulin ([facility]) Social History Tobacco Use Types Packs/Day [...] (Novofine Pen Needle) 32G x 6 mm [facility] To be sent to: [facility] - [place], [place] - [address] [place] [address] documented in this encounter Plan of Treatment Upcoming Encounters Date Type Department Care Team ([facility] st Contact Info) Description 12/20/2024 11:15 AM EDT Office Visit [facility] [address] [place] [address] Vicenta Nielsen NP [address] [place] [address] documented as of this encounter Visit Diagnoses Diagnosis Type 2 diabetes mellitus without complication, with long-term current use of insulin ([facility]) documented in this encounter Additional Health Concerns Assessment Noted Time PHQ-9 Depression Total Score: 7 07/25/20 24 9:24 AM EDT documented as of this encounter Care Teams Process Worker Relationship Specialty Start Date End Date Vicenta Nielsen NP [address] [place] [address] PCP - General Family Medicine 12/22/23 [employer] 04/29/24 abigail mcneill Conservation Science TeacherTrain Master 10/18/24 documented as of this encounter
--- OUTSIDE RECORDS SUMMARY | 2024-12-15 11:04 | XMS_ITS | Encounter Summary ---
Author Organization [employer] Address [address] [place] [address] 7t [place] [address] Care Team Providers Care Salesperson Women'S Hats Name Role Phone Vicenta Nielesn NP Primary Care Provider [phone] Reason for Visit * Reason Comments Care Coordination CHW outreach for SDO H [id number] completed Encounter Details Date Type Department Care Team (Latest Contact Info) Description 12/14/2024 Patient Outreach [facility] [address] [place] [address] Vicenta Nielsen, JUSTINO [address] [place] [address] Care Coordination (CHW outreach for SDOH [id number] completed /) Social History Tobacco Use Types [...] encounter Progress Notes * Tomas York - 12/14/2024 4:10 PM EDT CHW Tomas York, placed outbound call to patient for assistance with SDOH as a referral was received by the provider. Patient's name and were confirmed. PT-1 requested was send out in behalf of patient for futures appt. Patient verbalizes understanding, and able to agree with plan to followup. Patient educated on extended clinic hours on Mondays through Wednesdays, and Walk-In Urgent Care Located in [facility]. Patient provided with after-hours line for [facility], , which offernight time triage service and option to transfer to electron beam welding machine operator provider if needed. documented in this encounter Plan of Treatment Upcoming Encounters Date Type Department Care Team (Late st Contact Info) Description 12/20/2024 11:15 AM EDT Office Visit [facility] MEDIC[facility] [address] [place] [address] Vicenta Nielsen NP [address] [place] [address] documented as of this encounter Visit Diagnoses Not on filedocumented in this encounter Additional Health Concerns Assessment Noted Time PHQ-9 Depression Total Score: 7 07/25/20 24 9:24 AM EDT documented as of this encounter Care Teams Salesperson Women'S Hats Relationship Specialty Start Date End Date Vicenta Nielsen NP [address] [place] [address] PCP - General Family Medicine 12/22/23 [employer] 04/29/24 abigail mcneill Drill DoctorLibrary Page 10/18/24 documented as of this encounter
--- OUTSIDE RECORDS SUMMARY | 2024-12-15 11:04 | XMS_ITS | Encounter Summary ---
Author Organization [employer] Address [address] [place] [address] 7 [place] [address] Care Team Providers Care Sales Communications Manager Name Role Phone Valery Berrios MD Primary Care Provider [phone] Vicenta Nielsen NP Primary Care Provider [phone] Reason for Visit * Reason Onset Date Comments PT1 07/16/2023 Encounter Details Date Type Department Care Team ([facility] st Contact Info) Description 07/16/2023 Telephone [facility] & PEDS [address] [place] [address] Valery Berrios MD [address] [place] [address] PT1 Social History Tobacco Use Types Packs/Day Years Used Date Smoking Tobacco: Every Day Cigarettes Smokeless Tobacco: Never Depression Answer Date Recorded Patient Health Questionnaire-9 Score 0 10/20/2022 Housing Stability Answer Date Recorded What is your housing situation today? I do not have housing (Staying with others, in a hotel, in a mcc, living outside on the street, on a [...] Date: n/a Time: n/a Visits: n/a Address: [address] [place] [address] Facility: [facility] Chair: n/a Box Shook Patcher Needed: no documented in this encounter Plan of Treatment Upcoming Encounters Date Type Department Care Team (Late st Contact Info) Description 12/20/2024 11:15 AM EDT Office Visit [facility] MED[facility] [address] [place] [address] Vicenta Nielsen NP [address] [place] [address] documented as of this encounter Visit Diagnoses Not on filedocumented in this encounter Additional Health Concerns Assessment Noted Time PHQ-9 Depression Total Score: 0 10/20/19 23 2:41 PM EST documented as of this encounter Care Teams Sales Communications Manager Relationship Specialty Start Date End Date Valery Berrios MD [address] [place] [address] PCP - General Internal Medicine 12/01/18 12/21/23 Vicenta Nielsen NP [address] [place] [address] PCP - General Family Medicine 12/22/23 [employer] 04/29/24 abigail mcneill Emergency Vehicle DispatcherAgricultural Mechanic 10/18/24 documented as of this encounter
--- OUTSIDE RECORDS SUMMARY | 2024-12-15 11:04 | XMS_ITS | Encounter Summary ---
Author Organization [employer] Address [address] [place] [address] 7 [place] [address] Care Team Providers Care Registered Travel Nurse Name Role Phone Valery Berrios MD Primary Care Provider [phone] Vicenta Nielsen NP Primary Care Provider [phone] Encounter Details Date Type Department Care Team ([facility] st Contact Info) Description 11/18/2023 Orders Only [facility] [address] [facility] [place] [address] Valery Berrios MD 505 [place] [address] Benign hypertension (Primary Dx) Social History Tobacco [...] Description 12/20/2024 11:15 AM EDT Office Visit [facility] 230 [place], [place] [phone] Vicenta Nielsen NP 230 [place] [address] Scheduled Orders Name Type Priority Associated Diagnoses [...] Blood Count 7.8 4.8 - 10.8 X10*3/uL [facility] Red Blood Count 3.54(L) 4.60 - 5.80 X10*6/uL [facility] Hemoglobin 9.5(L) 14.0 - 18.0 g/dl [facility] Hematocrit 29.7(L) 42.0 - 52.0 % [facility] Mean Corpuscular Volume 83.9 80.0 - 98.0 fL [facility] Mean Corpuscular Hemoglobin 26.8(L) 27.0 - 33.0 pg [facility] Mean Corpuscular HGB Conc 32.0 31.0 - 36.0 g/dl [facility] Red Cell Distribution Width 14.0 11.0 - 16.0 % [facility] Platelet Count 236 160 - 400 X10*3/uL [facility] Mean Platelet Volume 11.3 9.4 - 12.4 fL [facility] Neutrophils Percent Auto 75.3(H) 45 - 73 % [facility] Imm Gran Pct Auto 0.4 0.0 - 0.4 % [facility] Lymphocytes Percent Auto 12.9(L) 20 - 40 % [facility] Monocytes Percent Auto 9.7 2 - 11 % [facility] Eosinophils Percent Auto 1.2 0 - 4 % [facility] Basophils Percent Auto 0.5 0 - 2 % [facility] NRBC Pct Auto 0.0 0.0 - 0.2 /100WBC [facility] Neutrophils Absolute Auto 5.9 2.0 - 8.3 x10*3/uL [facility] Imm Gran Abs Auto 0.03 0.00 - 0.03 X10*3/uL [facility] Lymphocytes Absolute Auto 1.0(L) 1.2 - 4.9 X10*3/uL [facility] Monocytes Absolute Auto 0.8 0.1 - 1.2 X10*3/uL [facility] Eosinophils Absolute Auto 0.1 0.0 - 0.4 X10*3/uL [facility] Basophils Absolute Auto 0.0 0.0 - 0.2 X10*3/uL [facility] NRBC Abs Auto 0.000 0.0 - 0.012 X10*3/uL [facility] Blood Venous blood specimen / Unknown 05/23/2024 11:38 AM EDT 05/23/2024 1:31 PM EDT Valery Berrios MD LAB BLOOD ORDERABLES Final Result [facility] [address] [place] [address] [phone] documented in this encounter Visit Diagnoses Diagnosis Benign hypertension- Primary Essential hypertension, benign documented in this encounter Additional Health Concerns Assessment Noted Time PHQ-9 Depression Total Score: 0 10/20/19 23 2:41 PM EST documented as of this encounter Care Teams Registered Travel Nurse Relationship Specialty Start Date End Date Valery Berrios MD [address] [place] [address] PCP - General Internal Medicine 12/01/18 12/21/23 Vicenta Nielsen NP [address] [place] [address] PCP - General Family Medicine 12/22/23 [employer] 04/29/24 abigail [email or web address] Tip BanderMachine Marker 10/18/24 documented as of this encounter
--- OUTSIDE RECORDS SUMMARY | 2024-12-15 11:04 | XMS_ITS | Encounter Summary ---
Author Organization [employer] Address [address] [place] [address] [place] [address] Care Team Providers Care Seed And Fertilizer Specialist Name Role Phone Valery Berrios MD Primary Care Provider [phone] Vicenta Nielsen NP Primary Care Provider [phone] Reason for Visit * Reason Onset Date Comments Forms/questionnaires 09/17/2022 Encounter Details Date Type Department Care Team (Late st Contact Info) Description 09/17/2022 Telephone [facility] [address] [place] [address] Valery Berrios MD 505 [place] [address] Forms/questionnaires Social History Tobacco Use Types Packs/Day [...] EDT Office Visit [facility] [address] [place], [place] [phone] Vicenta Nielsen NP [address] [place] [address] documented as of this encounter Visit Diagnoses Not on filedocumented in this encounter Care Teams Seed And Fertilizer Specialist Relationship Specialty Start Date End Date Valery Berrios MD [address] [place] [address] PCP - General Internal Medicine 12/01/18 12/21/23 Vicenta Nielsen NP [address] [place] [address] PCP - General Family Medicine 12/22/23 [employer] 04/29/24 abigail [email or web address] Cae EngineerIt Operations Manager 10/18/24 documented as of this encounter
--- OUTSIDE RECORDS SUMMARY | 2024-12-15 11:04 | XMS_ITS | Encounter Summary ---
Author Organization [employer] Address [address] [place] [address] 7t [place] [address] Care Team Providers Care Police Detention Attendant Name Role Phone Vicenta Nielsen NP Primary Care Provider [phone] Reason for Visit * Reason Onset Date Comments Nurse Triage 12/14/2024 Encounter Details Date Type Department Care Team (Late st Contact Info) Description 12/14/2024 Telephone [facility] [address] [place] [address] Vicenta Nielsen NP [address] [place] [address] Nurse Triage Social History Tobacco Use Types [...] encounter Miscellaneous Notes * Telephone Encounter - Lia Palma RN - 12/14/2024 12:45 PM EDT called pt to triage, spoke to pt. pt speaking very rapidly and has flight of thoughts. pt states basically that he has been having some stomach issues for a while and the discomfort radiates into hisback and bilateral kidney areas and down to the scrotum. pt reports has had some testing including an Ultrasound that shows nothing but the problem is getting worse. pt denies vomiting, diarrhea, fevers, or current severe pain. pt states has a bunch of other concerns and is advised that these appts are only 15 minutes and will need to address mostly one or two issues that are the most importantto him. pt requesting another antibiotic because he states that when he was last on an antibiotic for his cellulitis his stomach felt better. advised to speak to PCP at the appt about this concern. given appt 12/20 at 11:15 to discuss concerns with pt and for exam. insurance verified. Protocol Used: Abdominal Pain - Upper (Adult) Protocol-Based Disposition: See in Office or Video Visit within 2 Weeks Positive Triage Question: * Abdominal pain is a chronic symptom (recurrent or ongoing AND lasting > 4 weeks) * All higher-acuity triage questions were negative Care Advice Discussed: * Reassurance and Education - Stomach Pain * Antacid Medicine * Drink Clear Fluids * Diet * Avoid Aspirin and NSAIDs * Stop Smoking * Food Recommendations to Reduce Reflux * Reasons To Call Back - Severe pain present over 1 hour - Constant pain present over 2 hours - Moderate pains come and go for more than 24 hours - Mild pains come and go for more than 72 hours - You become worse * Telephone Encounter - Elmerluna Sykes - 12/14/2024 12:05 PM EDT Symptom: Back Pain - Not From Injury Outcome: Schedule an appointment to be seen within 3 days Reason: Caller denied all higher acuity questions Please contact pt at [phone]. documented in this encounter Plan of Treatment Upcoming Encounters Date Type Department Care Team ([facility] st Contact Info) Description 12/20/2024 11:15 AM EDT Office Visit [facility] [address] [place] [address] Vicenta Nielsen NP [address] [place] [address] documented as of this encounter Visit Diagnoses Not on filedocumented in this encounter Additional Health Concerns Assessment Noted Time PHQ-9 Depression Total Score: 7 07/25/20 24 9:24 AM EDT documented as of this encounter Care Teams Police Detention Attendant Relationship Specialty Start Date End Date Vicenta Nielsen NP [address] [place] [address] PCP - General Family Medicine 12/22/23 [employer] 04/29/24 abigail [email or web address] Custom Van ConverterHot Die Press Feeder 10/18/24 documented as of this encounter
--- OUTSIDE RECORDS SUMMARY | 2024-12-15 11:04 | XMS_ITS | Encounter Summary ---
Author Organization [employer] Address [address] [place] [address] 7 [place] [address] Care Team Providers Care Child Care Associate Teacher Name Role Phone Valery Berrios MD Primary Care Provider [phone] Vicenta Nielsen NP Primary Care Provider [phone] Reason for Visit * Reason Onset Date Comments Transfer Patient 09/13/2023 Encounter Details Date Type Department Care Team (Late st Contact Info) Description 09/13/2023 Telephone [facility] [address] [place] [address] Valery Berrios MD 505 [facility] [place] [phone] Transfer Patient Social History Tobacco Use Types [...] encounter Miscellaneous Notes * Telephone Encounter - Isaiilanaabdelrahman Burciaga - 10/13/2023 2:34 PM EST Tc from pt requesting status on TP Please contact pt @ [phone] * Telephone Encounter - Jone Kaufman - 09/13/2023 1:58 PM EST Tc from patient requesting to be transferred to the [facility] due to patient residing at [place] documented in this encounter Plan of Treatment Upcoming Encounters Date Type Department Care Team (Late st Contact Info) Description 12/20/2024 11:15 AM EDT Office Visit [facility] [address] [place] [address] Vicenta Nielsen NP [address] [place] [address] documented as of this encounter Visit Diagnoses Not on filedocumented in this encounter Additional Health Concerns Assessment Noted Time PHQ-9 Depression Total Score: 0 10/20/19 23 2:41 PM EST documented as of this encounter Care Teams Child Care Associate Teacher Relationship Specialty Start Date End Date Valery Berrios MD [address] [place] [address] PCP - General Internal Medicine 12/01/18 12/21/23 Vicenta Nielsen NP [address] [place] [address] PCP - General Family Medicine 12/22/23 [employer] 04/29/24 abigail [email or web address] Collection Development LibrarianBall Points Inspector 10/18/24 documented as of this encounter
--- OUTSIDE RECORDS SUMMARY | 2024-12-15 11:04 | XMS_ITS | Encounter Summary ---
Author Organization [employer] Address [address] [place] [address] 7t [place] [address] Care Team Providers Care Tennis Player Name Role Phone Vicenta Nielsen NP Primary Care Provider [phone] Encounter Details Date Type Department Care Team (Late st Contact Info) Description 12/15/2024 Orders Only GENERIC EXTERNAL DATA DEPARTMENT Provider, Generic External Data Social History Tobacco Use Types Packs/Day Years [...] Description 12/20/2024 11:15 AM EDT Office Visit [facility] [address] [place], [place] [phone] Vicenta Nielsen NP 230 [place], [place] [phone] documented as of this encounter Procedures Procedure Name Priority Date/Time Associated Diagnosis Comments GLUCOSE, WHOLE BLOOD Routine 12/15/2024 10:10 AM EDT documented in this encounter Results * (ABNORMAL) Glucose, Whole Blood (12/15/2024 10:10 AM EDT) Glucose, Whole Blood 145(H) 60 - 115 mg/dL [facility] Comment:METER #: [id number] 5Testing performed in the Endocrinology Department [address] , [address], [facility]. 12/15/2024 10:1 0 AM EDT 12/15/2024 10:14 AM EDT us Generic External Data Provider LAB BLOOD ORDERAB LES Final Result [facility] [address] [place] [address] [phone] documented in this encounter Visit Diagnoses Not on filedocumented in this encounter Additional Health Concerns Assessment Noted Time PHQ-9 Depression Total Score: 7 07/25/20 24 9:24 AM EDT documented as of this encounter Care Teams Tennis Player Relationship Specialty Start Date End Date Vicenta Nielsen NP [address] [place] [address] PCP - General Family Medicine 12/22/23 [employer] 04/29/24 abigail mcneill Fundraising ManagerAvionics System Engineer 10/18/24 documented as of this encounter
--- OUTSIDE RECORDS SUMMARY | 2024-12-15 11:04 | XMS_ITS | Encounter Summary ---
Author Organization [employer] Address [address] [place] [address] [place] [address] Care Team Providers Care Bike Mechanic Name Role Phone Valery Berrios MD Primary Care Provider [phone] Vicenta Nielsen NP Primary Care Provider Encounter Details Date Type Department Care Team (Late st Contact Info) Description 10/30/2022 Abstract [facility] [address] [place] [address] Valery Berrios MD 505 [place] [address] Social History Tobacco Use Types Packs/Day Years [...] Description 12/20/2024 11:15 AM EDT Office Visit [facility] [address] [place] [address] Vicenta Nielsen NP [address] [place] [address] documented as of this encounter Visit Diagnoses Not on filedocumented in this encounter Additional Health Concerns Assessment Noted Time PHQ-9 Depression Total Score: 0 10/20/19 23 2:41 PM EST documented as of this encounter Care Teams Bike Mechanic Relationship Specialty Start Date End Date Valery Berrios MD [address] [place] [address] PCP - General Internal Medicine 12/01/18 12/21/23 Vicenta Nielsen NP [address] [place] [address] PCP - General Family Medicine 12/22/23 [employer] 04/29/24 abigail [email or web address] Electro Mechanical AssemblerAlmond Blancher Hand 10/18/24 documented as of this encounter
--- OUTSIDE RECORDS SUMMARY | 2024-12-15 11:04 | XMS_ITS | Encounter Summary ---
Author Organization [employer] Address [address] [place] [address] 7 [place] [address] Care Team Providers Care Technical Artist Name Role Phone Valery Berrios MD Primary Care Provider [phone] Vicenta Nielsen NP Primary Care Provider [phone] Reason for Visit * Reason Onset Date Comments Call Back Request 11/17/2023 Encounter Details Date Type Department Care Team (Late st Contact Info) Description 11/17/2023 Telephone [facility] MEDICINE [address] [place] [address] Valery Berrios MD [address] [place], [place] [phone] Call Back Request Social History Tobacco Use Types Packs/Day Years Used Date Smoking Tobacco: Every Day Cigarettes Passive Smoke Exposure: Current Smokeless Tobacco: Never Depression Answer Date Recorded Patient Health Questionnaire-9 Score 0 10/20/2022 Housing Stability Answer Date Recorded What is your housing situation today? I do not have housing (Staying with others, in a hotel, in [place], living outside on the street, on a [...] on his potassium and iron. According to [facility] pharmacy, they do not have this on file. Dr. Berrios, is pt to be taking these 2 medications? If so he is in need of both sent to [facility] pharm. Pt also states he stopped taking the amlodipine because it made his legs swell, please DC in chart, he has been having high BP readings and will need something in replace of the amlodipine. Pt agrees to appt with PCP 11.23.23. Pt also states he moved to [place] and would like to transfer his care there. TP request sent on 10.14.23. Will wait for pt appt 11.23.23 to see what current PCP requests for f/u and go from there. * Telephone Encounter - Elmer Sykes - 11/17/2023 3:31 PM EST Tc from pt requesting call back from nurses to go over medication. Please contact pt at [phone]. documented in this encounter Plan of Treatment Upcoming Encounters Date Type Department Care Team (Late st Contact Info) Description 12/20/2024 11:15 AM EDT Office Visit [facility] MEDICINE [address] [place] [address] Vicenta Nielsen NP [address] [place] [address] documented as of this encounter Visit Diagnoses Not on filedocumented in this encounter Additional Health Concerns Assessment Noted Time PHQ-9 Depression Total Score: 0 10/20/19 23 2:41 PM EST documented as of this encounter Care Teams Technical Artist Relationship Specialty Start Date End Date Valery Berrios MD 505 [place] [address] PCP - General Internal Medicine 12/01/18 12/21/23 Vicenta Nielsen NP [address] [place] [address] PCP - General Family Medicine 12/22/23 [employer] 04/29/24 abigail [email or web address] Spiritual Care CoordinatorSheet Metal Mechanic 10/18/24 documented as of this encounter
--- OUTSIDE RECORDS SUMMARY | 2024-12-15 11:04 | XMS_ITS | Encounter Summary ---
Author Organization [employer] Address [address] [place] [address] 7 [place] [address] Care Team Providers Care Engineering Technician Name Role Phone Vicenta Nielsen NP Primary Care Provider [phone] Reason for Visit * Reason Comments Med Refill Encounter Details Date Type Department Care Team ([facility] st Contact Info) Description 02/04/2024 Refill [facility] MED & PEDS [address] [place] [address] Valery Berrios MD [address] [place] [address] Type 2 diabetes mellitus without complication, with long-term current use of insulin ([facility]) Social History Tobacco Use Types Packs/Day Years [...] Description 12/20/2024 11:15 AM EDT Office Visit [facility]INE 230 [place] [address] Vicenta Nielsen NP [address] [place] [address] documented as of this encounter Visit Diagnoses Diagnosis Type 2 diabetes mellitus without complication, with long-term current use of insulin ([facility]) documented in this encounter Additional Health Concerns Assessment Noted Time PHQ-9 Depression Total Score: 5 01/04/20 24 10:57 AM EDT documented as of this encounter Care Teams Engineering Technician Relationship Specialty Start Date End Date Vicenta Nielsen NP [address] [place] [address] PCP - General Family Medicine 12/22/23 [employer] 04/29/24 abigail mcneill Porter HeadBoat Carpenter Mechanic 10/18/24 documented as of this encounter
--- OUTSIDE RECORDS SUMMARY | 2024-12-15 11:04 | XMS_ITS | Encounter Summary ---
Author Organization [employer] Address [address] [place] [address] 7t [place] [address] Care Team Providers Care Enterprise Application Developer Name Role Phone Vicenta Nielsen NP Primary Care Provider [phone] Reason for Visit * Reason Onset Date Comments Durable Medical Equipment 12/04/2024 Encounter Details Date Type Department Care Team (Late st Contact Info) Description 12/04/2024 Telephone [facility] MED[facility]INE [address] [place] [address] Vicenta Nielsen NP [address] [place] [address] Durable Medical Equipment Social History Tobacco Use [...] * Telephone Encounter - Federica Keita - 12/11/2024 2:27 PM EDT RX for Compression stockings signed and faxed to [facility] . Confirmation received and sent to scan. If patient calls to check status on above, please advise them to contact [facility] at [phone]. * Telephone Encounter - Federica Keita - [...] 11:48 AM EST To: JUSTINO Canales, Unfortunately, [employer] does not cover 20-30. Please let me [...] Description 12/20/2024 11:15 AM EDT Office Visit [facility] [address] [place] [address] Vicenta Nielsen NP [address] [place] [address] documented as of this encounter Visit Diagnoses Not on filedocumented in this encounter Additional Health Concerns Assessment Noted Time PHQ-9 Depression Total Score: 7 07/25/20 9:24 AM EDT documented as of this encounter Care Teams Enterprise Application Developer Relationship Specialty Start Date End Date Vicenta Nielsen NP [address] [place] [address] PCP - General Family Medicine 12/22/23 [employer] 04/29/24 abigail [email or web address] Commutator V Ring AssemblerInspector Brake Lining 10/18/24 documented as of this encounter
--- OUTSIDE RECORDS SUMMARY | 2024-12-15 11:05 | XMS_ITS | Encounter Summary ---
Author Organization [employer] Address [address] [facility] 7t [place] [address] Care Team Providers Care District Plant Superintendent Name Role Phone Valery Berrios MD Primary Care Provider [phone] Vicenta Nielsen NP Primary Care Provider [phone] Encounter Details Date Type Department Care Team (Late st Contact Info) Description 03/24/2023 Abstract [facility] [address] [place] [address] Valery Berrios MD 505 [place] [address] Social History Tobacco Use Types Packs/Day Years [...] Description 12/20/2024 11:15 AM EDT Office Visit [facility] [address] [place] [address] Vicenta Nielsen NP [address] [place] [address] documented as of this encounter Visit Diagnoses Not on filedocumented in this encounter Additional Health Concerns Assessment Noted Time PHQ-9 Depression Total Score: 0 10/20/19 23 2:41 PM EST documented as of this encounter Care Teams District Plant Superintendent Relationship Specialty Start Date End Date Valery Berrios MD [address] [place] [address] PCP - General Internal Medicine 12/01/18 12/21/23 Vicenta Nielsen NP [address] [place] [address] PCP - General Family Medicine 12/22/23 [employer] 04/29/24 abigail mcneill Tire MakerHealth Benefits Specialist 10/18/24 documented as of this encounter
--- OUTSIDE RECORDS SUMMARY | 2024-12-15 11:05 | XMS_ITS | Encounter Summary ---
Author Organization [employer] Address [address] [place] [address] 7 [place] [address] Care Team Providers Care Undercar Specialist Name Role Phone Valery Berrios MD Primary Care Provider [phone] Vicenta Nielsen NP Primary Care Provider [phone] Reason for Visit * Reason Onset Date Comments medication 07/14/2023 Encounter Details Date Type Department Care Team ([facility] st Contact Info) Description 07/14/2023 Telephone [facility] MED & PEDS [address] [place] [address] Valery Berrios MD 505 [place] [address] medication Social History Tobacco Use Types Packs/Day Years Used Date Smoking Tobacco: Every Day Cigarettes Smokeless Tobacco: Never Depression Answer Date Recorded Patient Health Questionnaire-9 Score 0 10/20/2022 Housing Stability Answer Date Recorded What is your housing situation today? I do not have housing (Staying with others, in a hotel, in a fpc, living outside on the street, on a [...] see message below. Retrieved Endo note from [email or web address]. Per note, plan is to reinitiate metformin 1000mg bid. Could consider adding and SGLT 2 inhibitor in the future. Will increase lantus to 65units at possibly 70 units to keep point care in a.m <180 ... Will send note to scan for PCP to review. * Telephone Encounter - Ying Cox - 07/14/2023 11:20 AM EDT Tc from pt stating surgical specialist is requesting pt switch from 55 to 65 units on insulin glargine (Lantus) 100 UNIT/ML injection. documented in this encounter Plan of Treatment Upcoming Encounters Date Type Department Care Team (Late st Contact Info) Description 12/20/2024 11:15 AM EDT Office Visit [facility] MEDICINE [address] [place] [address] Vicenta Nielsen NP [address] [place], [place] [phone] documented as of this encounter Visit Diagnoses Not on filedocumented in this encounter Additional Health Concerns Assessment Noted Time PHQ-9 Depression Total Score: 0 10/20/19 23 2:41 PM EST documented as of this encounter Care Teams Undercar Specialist Relationship Specialty Start Date End Date Valery Berrios MD [address] [place] [address] PCP - General Internal Medicine 12/01/18 12/21/23 Vicenta Nielsen NP [address] [place] [address] PCP - General Family Medicine 12/22/23 [employer] 04/29/24 abigail [email or web address] Hog DropperBook Sewing Machine Operator 10/18/24 documented as of this encounter
--- OUTSIDE RECORDS SUMMARY | 2024-12-15 11:05 | XMS_ITS | Encounter Summary ---
Author Organization [facility] Address [address] [place] [address] Care Team Providers Care Hospitality Workers Name Role Phone Vicenta Nielsen Primary Care Provider Encounter Details Date Type Department Care Team Description 05/30/2024 Social Work [facility] Oncology Services [address] [place] [address] Claude Resendiz, [facility] Social History Tobacco Use Types Packs/Day Years [...] on filedocumented in this encounter Care Teams Hospitality Workers Relationship Specialty Start Date End Date Vicenta Nielsen [address] [place] [phone] PCP - General Family Medicine 05/26/24 documented as of this encounter
--- OUTSIDE RECORDS SUMMARY | 2024-12-15 11:05 | XMS_ITS | Encounter Summary ---
Author Organization [facility] Address [address] [place] [address] Care Team Providers Care Boilermaker Industrial Boilers Name Role Phone Vicenta Nielsen LEAD PROJECT MANAGER Primary Care Provider [phone] Encounter Details Date Type Department Care Team (Late st Contact Info) Description 08/21/2024 Lab Requisition [facility] - Main Lab [address] [facility] [place] [phone] Steven Naik MD [address] [place] [address] Cellulitis, unspecified Social History Tobacco Use Types [...] Care Team (Late st Contact Info) Description 12/28/2024 11:00 AM EDT Evaluation [facility] [address] [facility] [address] [place] [phone] Yoav Freitas, PT documented as of this encounter Procedures Procedure [...] CBC auto differential (08/21/2024 12:00 AM EST) [facility] WBC 6.4 4.8 - 10.8 K/mcL LAB HEMETOLOGY METHOD 08/21/2024 8:22 PM [facility] RBC 3.90(L) 4.50 - 5.50 M/mcL LAB HEMETOLOGY METHOD 08/21/2024 8:22 PM [facility] Hemoglobin 10.3(L) 13.5 - 17.5 g/dL LAB HEMETOLOGY METHOD 08/21/2024 8:22 PM [facility] Hematocrit 32.4(L) 42.0 - 54.0 % LAB HEMETOLOGY METHOD 08/21/2024 8:22 PM [facility] MCV 83.7 79.0 - 98.0 FL LAB HEMETOLOGY METHOD 08/21/2024 8:22 PM [facility] MCH 26.6(L) 27.0 - 32.0 pcg LAB HEMETOLOGY METHOD 08/21/2024 8:22 PM [facility] MCHC 31.8(L) 32.0 - 37.0 g/dL LAB HEMETOLOGY METHOD 08/21/2024 8:22 PM [facility] RDW 14.9 11.0 - 15.0 % LAB HEMETOLOGY METHOD 08/21/2024 8:22 PM [facility] Platelets 208 130 - 400 K/mcL LAB HEMETOLOGY METHOD 08/21/2024 8:22 PM [facility] MPV 11.8(H) 7.0 - 11.0 FL LAB HEMETOLOGY METHOD 08/21/2024 8:22 PM [facility] NRBC 0.0 <1.0 % LAB HEMETOLOGY METHOD 08/21/2024 8:22 PM [facility] NRBC Absolute 0.00 <0.10 K/mcL LAB HEMETOLOGY METHOD 08/21/2024 8:22 PM [facility] Neutrophils Relative 66.3 % LAB HEMETOLOGY METHOD 08/21/2024 8:22 PM [facility] Lymphocytes Relative 21.1 % LAB HEMETOLOGY METHOD 08/21/2024 8:22 PM [facility] Monocytes Relative 9.8 % LAB HEMETOLOGY METHOD 08/21/2024 8:22 PM [facility] Eosinophils Relative 2.0 % LAB HEMETOLOGY METHOD 08/21/2024 8:22 PM [facility] Basophils Relative 0.5 % LAB HEMETOLOGY METHOD 08/21/2024 8:22 PM [facility] Immature Granulocytes Relative 0.3 % LAB HEMETOLOGY METHOD 08/21/2024 8:22 PM [facility] Neutrophils Absolute 4.24 1.50 - 7.00 K/mcL LAB HEMETOLOGY METHOD 08/21/2024 8:22 PM [facility] Lymphocytes Absolute 1.35 1.00 - 5.00 K/mcL LAB HEMETOLOGY METHOD 08/21/2024 8:22 PM [facility] Monocytes Absolute 0.63 0.20 - 1.00 K/mcL LAB HEMETOLOGY METHOD 08/21/2024 8:22 PM [facility] Eosinophils Absolute 0.13 0.00 - 0.50 K/mcL LAB HEMETOLOGY METHOD 08/21/2024 8:22 PM [facility] Basophils Absolute 0.03 0.00 - 0.20 K/mcL LAB HEMETOLOGY METHOD 08/21/2024 8:22 PM EST [facility] Immature Granulocytes Absolute 0.02 0.00 - 0.03 K/mcL LAB HEMETOLOGY METHOD 08/21/2024 8:22 PM [facility] Blood Venous blood specimen / Unknown 08/21/2024 08/21/2024 8:09 PM EST Steven Naik MD LAB BLOOD ORDERABLES Final Re sult Performing Organization Address City/[facility]/ZIP Co de Phone Number [facility] [address] [place] [address], [place] [phone] * Creatine kinase (08/21/2024 12:00 AM EST) Pathologist [facility] Total CK 54 22 - 269 unit/L LAB CHEMISTRY METHOD 08/21/2024 8:29 PM [facility] Blood Venous blood specimen / Unknown 08/21/2024 08/21/2024 8:09 PM EST Steven Naik MD LAB BLOOD ORDERABLES Final Re sult Performing Organization Address City/[facility]/ZIP Co de Phone Number [facility] [address] [place] [address], [place] [phone] * (ABNORMAL) Comprehensive metabolic panel (08/21/2024 12:00 AM EST) [facility] Sodium 138 133 - 145 mmol/L LAB CHEMISTRY METHOD 08/21/2024 8:29 PM [facility] Potassium 4.5 3.5 - 5.5 mmol/L LAB CHEMISTRY METHOD 08/21/2024 8:29 PM [facility] Chloride 105 96 - 110 mmol/L LAB CHEMISTRY METHOD 08/21/2024 8:29 PM [facility] CO2 28 21 - 32 mmol/L LAB CHEMISTRY METHOD 08/21/2024 8:29 PM [facility] Anion Gap 5 3 - 11 LAB CHEMISTRY METHOD 08/21/2024 8:29 PM [facility] Glucose 130(H) 70 - 100 mg/dL LAB CHEMISTRY METHOD 08/21/2024 8:29 PM [facility] BUN 28(H) 5 - 25 mg/dL LAB CHEMISTRY METHOD 08/21/2024 8:29 PM [facility] Creatinine 1.02 0.70 - 1.30 mg/dL LAB CHEMISTRY METHOD 08/21/2024 8:29 PM [facility] eGFR 85 >=60 mL/min/1. 73m2 LAB CHEMISTRY METHOD 08/21/2024 8:29 PM [facility] Comment:Calculation based on the??Chronic Kidney Disease Epidemiology Collaboration (CKD-EPI) equation refit??without adjustment for race. BUN/Creatinine Ratio 27.5 LAB CHEMISTRY METHOD 08/21/2024 8:29 PM [facility] Calcium 9.4 8.5 - 10.5 mg/dL LAB CHEMISTRY METHOD 08/21/2024 8:29 PM [facility] AST (SGOT) 15 10 - 42 unit/L LAB CHEMISTRY METHOD 08/21/2024 8:29 PM [facility] ALT (SGPT) 19 10 - 60 unit/L LAB CHEMISTRY METHOD 08/21/2024 8:29 PM [facility] Alkaline Phosphatase 90 42 - 121 unit/L LAB CHEMISTRY METHOD 08/21/2024 8:29 PM [facility] Total Protein 7.6 6.0 - 8.0 g/dL LAB CHEMISTRY METHOD 08/21/2024 8:29 PM [facility] Albumin 3.9 3.2 - 5.0 g/dL LAB CHEMISTRY METHOD 08/21/2024 8:29 PM [facility] Total Bilirubin 0.3 0.0 - 1.4 mg/dL LAB CHEMISTRY METHOD 08/21/2024 8:29 PM EST [facility] Blood Venous blood specimen / Unknown 08/21/2024 08/21/2024 8:09 PM EST us Steven Naik MD LAB BLOOD ORDERABLES Final Re sult [facility] [address] [place] [address], documented in this encounter Visit Diagnoses Diagnosis Cellulitis, unspecified documented in this encounter Care Teams Boilermaker Industrial Boilers Relationship Specialty Start Date End Date Vicenta Nielsen FNP [address] [place] [phone] PCP - General 05/26/24 documented as of this encounter
--- OUTSIDE RECORDS SUMMARY | 2024-12-15 11:05 | XMS_ITS | Encounter Summary ---
Author Organization [facility] Address [address] [place] [address] Care Team Providers Care Principal Software Engineer Name Role Phone Vicenta Nielsen PRESS BRAKE OPERATOR Primary Care Provider [phone] Encounter Details Date Type Department Care Team (Late st Contact Info) Description 08/30/2024 Lab Requisition [facility] - Main Lab [address] [place] [address] Mary Song PA [address] [address] Cellulitis, unspecified Social History Tobacco Use Types [...] Info) Description 12/28/2024 11:00 AM EDT Evaluation [facility] [address] [phone] Yoav Freitas, PT documented as of this [...] CBC auto differential (08/29/2024 12:00 AM EST) WBC 6.7 4.8 - 10.8 K/mcL LAB HEMETOLOGY METHOD 08/30/2024 9:13 AM [facility] RBC 3.90(L) 4.50 - 5.50 M/mcL LAB HEMETOLOGY METHOD 08/30/2024 9:13 AM [facility] Hemoglobin 10.5(L) 13.5 - 17.5 g/dL LAB HEMETOLOGY METHOD 08/30/2024 9:13 AM [facility] Hematocrit 32.8(L) 42.0 - 54.0 % LAB HEMETOLOGY METHOD 08/30/2024 9:13 AM [facility] MCV 84.5 79.0 - 98.0 FL LAB HEMETOLOGY METHOD 08/30/2024 9:13 AM [facility] MCH 27.1 27.0 - 32.0 pcg LAB HEMETOLOGY METHOD 08/30/2024 9:13 AM [facility] MCHC 32.0 32.0 - 37.0 g/dL LAB HEMETOLOGY METHOD 08/30/2024 9:13 AM [facility] RDW 14.9 11.0 - 15.0 % LAB HEMETOLOGY METHOD 08/30/2024 9:13 AM [facility] Platelets 206 130 - 400 K/mcL LAB HEMETOLOGY METHOD 08/30/2024 9:13 AM [facility] MPV 12.6(H) 7.0 - 11.0 FL LAB HEMETOLOGY METHOD 08/30/2024 9:13 AM [facility] NRBC 0.0 <1.0 % LAB HEMETOLOGY METHOD 08/30/2024 9:13 AM [facility] NRBC Absolute 0.00 <0.10 K/mcL LAB HEMETOLOGY METHOD 08/30/2024 9:13 AM [facility] Neutrophils Relative 63.6 % LAB HEMETOLOGY METHOD 08/30/2024 9:13 AM [facility] Lymphocytes Relative 20.7 % LAB HEMETOLOGY METHOD 08/30/2024 9:13 AM [facility] Monocytes Relative 11.6 % LAB HEMETOLOGY METHOD 08/30/2024 9:13 AM [facility] Eosinophils Relative 3.0 % LAB HEMETOLOGY METHOD 08/30/2024 9:13 AM [facility] Basophils Relative 1.0 % LAB HEMETOLOGY METHOD 08/30/2024 9:13 AM [facility] Immature Granulocytes Relative 0.1 % LAB HEMETOLOGY METHOD 08/30/2024 9:13 AM [facility] Neutrophils Absolute 4.26 1.50 - 7.00 K/mcL LAB HEMETOLOGY METHOD 08/30/2024 9:13 AM [facility] Lymphocytes Absolute 1.39 1.00 - 5.00 K/mcL LAB HEMETOLOGY METHOD 08/30/2024 9:13 AM [facility] Monocytes Absolute 0.78 0.20 - 1.00 K/mcL LAB HEMETOLOGY METHOD 08/30/2024 9:13 AM [facility] Eosinophils Absolute 0.20 0.00 - 0.50 K/mcL LAB HEMETOLOGY METHOD 08/30/2024 9:13 AM [facility] Basophils Absolute 0.07 0.00 - 0.20 K/mcL LAB HEMETOLOGY METHOD 08/30/2024 9:13 AM EST [facility] Immature Granulocytes Absolute 0.01 0.00 - 0.03 K/mcL LAB HEMETOLOGY METHOD 08/30/2024 9:13 AM EST [facility] Blood Venous blood specimen / Unknown 08/29/2024 08/30/2024 9:03 AM EST Mary ROE LAB BLOOD ORDERABLES Final Result [facility] [address] [place] [address], [place] [phone] * Creatine kinase (08/29/2024 12:00 AM EST) Pathologist [facility] Total CK 63 22 - 269 unit/L LAB CHEMISTRY METHOD 08/30/2024 9:25 AM [facility] Blood Venous blood specimen / Unknown 08/29/2024 08/30/2024 9:03 AM EST Mary ROE LAB BLOOD ORDERABLES Final Result Performing Organization Address City/[facility]/ZIP Co de Phone Number [facility] [address] [place] [address], [place] [phone] * (ABNORMAL) Comprehensive metabolic panel (08/29/2024 12:00 AM EST) [facility] Sodium 138 133 - 145 mmol/L LAB CHEMISTRY METHOD 08/30/2024 9:25 AM [facility] Potassium 4.8 3.5 - 5.5 mmol/L LAB CHEMISTRY METHOD 08/30/2024 9:25 AM [facility] Chloride 105 96 - 110 mmol/L LAB CHEMISTRY METHOD 08/30/2024 9:25 AM [facility] CO2 27 21 - 32 mmol/L LAB CHEMISTRY METHOD 08/30/2024 9:25 AM [facility] Anion Gap 6 3 - 11 LAB CHEMISTRY METHOD 08/30/2024 9:25 AM [facility] Glucose 104(H) 70 - 100 mg/dL LAB CHEMISTRY METHOD 08/30/2024 9:25 AM [facility] BUN 26(H) 5 - 25 mg/dL LAB CHEMISTRY METHOD 08/30/2024 9:25 AM [facility] Creatinine 1.10 0.70 - 1.30 mg/dL LAB CHEMISTRY METHOD 08/30/2024 9:25 AM [facility] eGFR 77 >=60 mL/min/1. 73m2 LAB CHEMISTRY METHOD 08/30/2024 9:25 AM [facility] Comment:Calculation based on the??Chronic Kidney Disease Epidemiology Collaboration (CKD-EPI) equation refit??without adjustment for race. BUN/Creatinine Ratio 23.6 LAB CHEMISTRY METHOD 08/30/2024 9:25 AM [facility] Calcium 9.4 8.5 - 10.5 mg/dL LAB CHEMISTRY METHOD 08/30/2024 9:25 AM [facility] AST (SGOT) 16 10 - 42 unit/L LAB CHEMISTRY METHOD 08/30/2024 9:25 AM [facility] ALT (SGPT) 24 10 - 60 unit/L LAB CHEMISTRY METHOD 08/30/2024 9:25 AM [facility] Alkaline Phosphatase 91 42 - 121 unit/L LAB CHEMISTRY METHOD 08/30/2024 9:25 AM [facility] Total Protein 7.7 6.0 - 8.0 g/dL LAB CHEMISTRY METHOD 08/30/2024 9:25 AM [facility] Albumin 4.0 3.2 - 5.0 g/dL LAB CHEMISTRY METHOD 08/30/2024 9:25 AM [facility] Total Bilirubin 0.2 0.0 - 1.4 mg/dL LAB CHEMISTRY METHOD 08/30/2024 9:25 AM [facility] Blood Venous blood specimen / Unknown 08/29/2024 08/30/2024 9:03 AM EST Mary ROE LAB BLOOD ORDERABLES Final Result [facility] [address] [place] [address], documented in this encounter Visit Diagnoses Diagnosis Cellulitis, unspecified documented in this encounter Care Teams Principal Software Engineer Relationship Specialty Start Date End Date Vicenta Nielsen FNP [address] [place] [phone] PCP - General 05/26/24 documented as of this encounter
--- OUTSIDE RECORDS SUMMARY | 2024-12-15 11:05 | XMS_ITS | Encounter Summary ---
Author Organization [employer] Address [address] [place] [address] [address] [address] Care Team Providers Care Financial Planning Assistant Name Role Phone Valery Berrios MD Primary Care Provider [phone] Vicenta Nielsen NP Primary Care Provider [phone] Reason for Visit * Reason Onset Date Comments pt1 03/03/2023 Encounter Details Date Type Department Care Team (Late st Contact Info) Description 03/03/2023 Telephone [facility] [address] [place] [address] Valery Berrios MD [address] [facility] [place] [phone] pt1 Social History Tobacco Use Types Packs/Day [...] Tc from pt requesting pt1 ride Date: every wednesday Time: 10 am address: [address] [place] [address] [place] [address] specialty: # visits: extractions technician: no Wheelchair: cane Date: Time: address: [address] [place] [phone] specialty: # visits: extractions technician: no Wheelchair: cane documented in this encounter Plan of Treatment Upcoming Encounters Date Type Department Care Team (Late st Contact Info) Description 12/20/2024 11:15 AM EDT Office Visit [facility] [address] [place] [address] Vicenta Nielsen NP [address] [place] [address] documented as of this encounter Visit Diagnoses Not on filedocumented in this encounter Additional Health Concerns Assessment Noted Time PHQ-9 Depression Total Score: 0 10/20/19 23 2:41 PM EST documented as of this encounter Care Teams Financial Planning Assistant Relationship Specialty Start Date End Date Valery Berrios MD [address] [place] [address] PCP - General Internal Medicine 12/01/18 12/21/23 Vicenta Nielsen NP [address] [place] [address] PCP - General Family Medicine 12/22/23 [employer] 04/29/24 [email or web address] [email or web address] Paper Gluing OperatorParquetry Layer 10/18/24 documented as of this encounter
--- OUTSIDE RECORDS SUMMARY | 2024-12-15 11:05 | XMS_ITS | Encounter Summary ---
Author Organization [employer] Address [address] [place] [address] [place] [address] Care Team Providers Care Assembler Fluorescent Lights Name Role Phone Valery Berrios MD Primary Care Provider [phone] Vicenta Nielsen NP Primary Care Provider [phone] Reason for Visit * Reason Onset Date Comments PT1 11/18/2022 Encounter Details Date Type Department Care Team ([facility] st Contact Info) Description 11/18/2022 Telephone [facility] [address] [place] [address] Valery Berrios MD [address] [place] [address] PT1 Social History Tobacco Use Types Packs/Day [...] from pt requesting for a PT1 Location: [address] [place] [address] Specialty: All appts Time: n/a Date: n/a Extractor Puller: n/a Does require a cane. Pt states previous PT1 will on December 09, 2022 If any question please contact pt at [phone] documented in this encounter Plan of Treatment Upcoming Encounters Date Type Department Care Team (Late st Contact Info) Description 12/20/2024 11:15 AM EDT Office Visit [facility] [address] [place] [address] Vicenta Nielsen NP [address] [place] [address] documented as of this encounter Visit Diagnoses Not on filedocumented in this encounter Additional Health Concerns Assessment Noted Time PHQ-9 Depression Total Score: 0 10/20/19 23 2:41 PM EST documented as of this encounter Care Teams Assembler Fluorescent Lights Relationship Specialty Start Date End Date Valery Berrios MD [address] [place] [phone] PCP - General Internal Medicine 12/01/18 12/21/23 Vicenta Nielsen NP [address] [place] [address] PCP - General Family Medicine 12/22/23 [email or web address] 04/29/24 abigail [email or web address] Edi Programmer AnalystDirector Of Video Analytics 10/18/24 documented as of this encounter
--- OUTSIDE RECORDS SUMMARY | 2024-12-15 11:05 | XMS_ITS | Clinical Summary ---
Author Organization [address] Address [address] [place] [phone] Phone Care Team Providers Care Mortgage Loan Assistant Name Role Phone Vicenta Nielsen RAZ Primary Care Provider [phone] Immunizations Name Administration Dates Next Due Pfizer SARS-CoV-2 COVID-19, mRNA, LNP-S, preservative free 03/04/2021,02/11/2021 Surgical History Surgery Date Site/Laterality Comments OTHER SURGICAL HISTORY PROCEDURE:KIDNEY STENT LEG AMPUTATION Right PROCEDURE:BELOW KNEE LEG AMPUTATION Medical History Medical History Date Comments Diabetes mellitus (CMS/HCC) DX:D iabetes mellitus ([facility]) Hypertension DX:Hypertension Social History Tobacco Use Types [...] 01/11/2024 1:24 PM EDT Plan of Treatment Upcoming Encounters Date Type Department Care Team (Late st Contact Info) Description 12/28/2024 11:00 AM EDT Evaluation [facility] [address] [phone] Yoav Freitas, PT Health Maintenance Due Date Last Done Comments [...] Documents on File Type Date Recorded Patient Jordan Worker Expl anation Health Care Decision (hx) 01/22/2023 [...] (hx) 01/22/2023 AD PURDY DIRECTIVE Care Teams Mortgage Loan Assistant Relationship Specialty Start Date End Date Vicenta Nielsen FNP [address] [place] [phone] PCP - General 05/26/24
--- OUTSIDE RECORDS SUMMARY | 2024-12-15 11:05 | XMS_ITS | Clinical Summary ---
Author Organization [employer] Address [address] [place] [address] [address] [place] [address] Care Team Providers Care Power Tool Repair Technician Name Role Phone Vicenta Nielsen NP Primary Care Provider [phone] Allergies Active Allergy Reactions Criticality Noted Date Comments Bee Pollen 05/07/2023 Bee Venom Anaphylaxis High 12/15/2018 Beeswax Unknown 03/21/2024 Per Johan Cortés Erythromycin Itching 07/04/2019 Iodinated Contrast Media Shortness of breath High 11/20/2022 Iodine 12/15/2018 Medications * This document contains information received from the source organization and may not represent a complete record from that organization. Blood Glucose Monitoring Suppl ([employer]yle Bells Lite) w/Device kit TEST BLOOD SUGAR FOUR TIMES DAILY 11/21/19 22 Active Continuous Blood Gluc Metal Engraver (OCS HomeCareStyle Oumar 2 Coyote) device USE DIRECTED EVERY DAY 06/11/20 22 Active METHADONE HCL PO Take 115 mg by mouth in the morning. Active Diclofenac Sodium 1 % gelIndications :Chronic pain of both knees,Left hip pain,Chronic right shoulder pain To apply to the affected areas 3 times a day 100 g 1 02/27/20 23 Active Nutritional Supplements (Yared) powderIndicati ons:Amputation of right great toe (CMS/HCC) 1 packet to dilute in 8 oz of water 2 times a day 545 g 3 05/31/20 23 Active acetaminophen (Tylenol) 325 MG tablet TAKE TWO TABLETS BY MOUTH EVERY FOUR HOURS NEEDED FOR MILD PAIN 05/14/20 23 Active TRUEplus Lancets 33G miscIndication s:Type 2 diabetes mellitus without complication, with long-term current use of insulin ([facility]) TEST BLOOD SUGAR FOUR TIMES DAILY 100 each 11 11/23/19 24 Active Continuous Blood Gluc Sensor (FreeStyle Oumar 2 Sensor) misc USE DIRECTED TO TEST BLOOD SUGAR. CHANGE EVERY 14 DAYS . 2 each 11/23/19 24 Active ipratropium-al buterol (Combivent Respimat) 20-100 MCG/ACT inhalerIndicat ions:COPD mixed type ([facility]) Inhale 1 puff if needed in the morning, at noon, in the evening, and at bedtime for wheezing. 4 g 2 01/04/20 24 2024 Active Multiple Vitamin (Multivitamin) tablet Take 1 tablet by mouth in the morning. 10/20/19 24 Active atorvastatin (Lipitor) 20 MG tablet Take 1 tablet (20 mg) by mouth at bedtime. 90 tablet 3 05/23/20 24 2024 Active Blood Pressure Monitoring (Blood Pressure Cuff) misc Use daily as prescribed 1 each 05/23/20 24 Active FREESTYLE LITE test stripIndicatio ns:Type 2 diabetes mellitus without complication, with long-term current use of insulin ([facility]) USE DIRECTED TO TEST BLOOD SUGAR FOUR TIMES DAILY 100 strip 4 07/04/20 24 Active Lactobacillus Probiotic tabletIndicati ons:Chronic antibiotic suppression Take 1 tablet by mouth 3 times daily. 90 tablet 2 08/21/20 24 Active insulin glargine (Lantus SoloStar) 100 UNIT/ML penIndications :Type 2 diabetes mellitus with hyperglycemia, with long-term current use of insulin ([facility]) Inject 20 Units under the skin 2 times daily. 15 mL 3 08/21/20 24 Active insulin lispro (HumaLOG) 100 UNIT/ML injection 2-17 units subcutaneous with meals and snacks 15 mL 11 10/16/19 25 Active olmesartan-hyd roCHLOROthiazi de (Benicar HCT) 40-25 MG tabletIndicati ons:Hypertensi on, unspecified type Take 1 tablet by mouth Once per day. 90 tablet 1 11/10/19 25 2025 Active insulin pen needle (Novofine Pen Needle) 32G x 6 mm miscIndication s:Type 2 diabetes mellitus without complication, with long-term current use of insulin ([facility]) USE 5 TO 6 TIMES DAILY DIRECTED 150 each 1 12/01/19 25 Active GaviLAX 17 GM/SCOOP powder TAKE 17 GM MIXED IN 8 OUNCES OF WATER ONCE DAILY FOR 3 DAYS 510 g 1 12/08/19 25 Active insulin pen needle (Novofine Pen Needle) 32G x 6 mm miscIndication s:Type 2 diabetes mellitus without complication, with long-term current use of insulin ([facility]) USE 5 TO 6 TIMES DAILY DIRECTED 150 each 11 11/01/19 24 2024 Discontinued(R eorder (will not trigger notification to Pharmacy)) polyethylene glycol, PEG, 3350 (Glycolax) 17 GM/SCOOP powder MIX 17G (1 CAPFUL) IN 8 OUNCES OF WATER, COFFEE, OR TEA AND TAKE BY MOUTH EVERY DAY FOR 3 DAYS 510 g 1 06/29/20 24 2024 Discontinued Active Problems Patient Care Coordination No te Formatting of this note migh t be different from the original. 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 Referral placed for OP therapy with [facility] in [place]. Provided patient referral letter and agency contact [...] sxs. Provided information for [facility] in [place] for sooner appointments. Assessment & Plan (07/24/2024 7:13 PM EDT): Pt with significant anxiety, related to home life and serious illnesses, [facility] into meet with patient Panic attacks 07/24/2024 [...] sxs. Provided information for [facility] in [place] for sooner appointments. Amputation of right lower [...] pending , advised him to f/u with career discovery teacher Pelvic lymphadenopathy 05/23/2024 Overview (05/23/2024): CT scan abd/pelvis at [facility] on 02/20/24: IMPRESSION: 1. Pelvic lymphadenopathy. [...] does not receive his care in the [facility] system, and there are limited records, including labs, available for review in Care Everywhere. Hgb over the past 2 weeks SENIOR CONTRACTS MANAGER has ranged from 6.7 to 8.2. Patient has an unknown baseline H&H. Patient underwent TMA of the right foot on February 06, [address] Escalante. This was performed at [facility], and patient was discharged to rehab at [facility]. Starting on 03/07, patient with increased bleeding from amputation site. He presented to the ED on this date, was seen by podiatry, and given lack of active bleeding and stable H&H, he was DC'd back to rehab. Came back 03/12 with bleeding, however this stopped with elevation and he was again discharged back to [place], only to return on 03/13. He was [...] -Close follow up with Dr. Escalante in [place]. Appointment scheduled for 04/04/2024 at 2:30 PM [...] 06, 2024. This surgery was performed at [facility]. Patient was ultimately discharged to [facility] for ongoing rehab, and was continued [...] Encounters Date Type Department Care Team Description 12/15/2024 Population Health Risk Score [facility] () Department [address] [place] [phone] Provider, Population Health Generic 12/15/2024 Orders Only GENERIC EXTERNAL DATA DEPARTMENT Provider, Generic External Data 12/14/2024 Patient Outreach [facility] [address] [place] [phone] Vicenta Nielsen NP Care Coordination (CHW outreach for SDOH [id number] completed /) 12/14/2024 Telephone [facility] [address] [place] [phone] Vicenta Nielsen NP Nurse Triage 12/08/[address] [address] Ronna Juarez MA Results 12/07/2024 Refill [facility] [address] [place] [address] Vicenta Nielsen NP 12/04/2024 Telephone [facility] [address] [place] [phone] Vicenta Nielsen NP Durable Medical Equipment 12/01/2024 Patient Outreach [facility] [address] [place] [phone] Vicenta Nielsen NP Care Coordination ([facility] outreach for [facility] [id number] completed /) 12/01/2024 Refill [facility] [address] [place] [phone] Vicenta Nielsen NP Type 2 diabetes mellitus without complication, with long-term current use of insulin ([facility]) 12/01/2024 Telephone [facility] [address] [place] [phone] Vicenta Nielsen NP PT-1 11/15/[address] [phone] Vicenta Nielsen NP Referral 11/10/2024 1:45 PM EST Office Visit [address] [phone] Vicenta Nielsen NP Hypertension, unspecified type (Primary Dx); Type 2 diabetes mellitus with hyperglycemia, with long-term current use of insulin ([facility]); Left flank pain; Below-knee amputation of right lower extremity, initial encounter ([facility]); Peripheral vascular disease (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); Iron deficiency anemia due to chronic blood loss; Palpitations; Essential (primary) hypertension; Type 2 diabetes mellitus with other circulatory complication, with long-term current use of insulin ([facility]); History of opioid abuse ([facility]) 10/31/2024 Patient Outreach [facility] [address] [place] [phone] Vicenta Nielsen NP Care Coordination (CHW outreach for SDOH PT-1 and food needs-referral completed /) 10/31/[address] [phone] Ronna Juarez MA Chart Prep 10/31/[address] [phone] Vicenta Nielsen NP Lab Orders 10/31/[address] [phone] Vicenta Nielsen NP PT-1 10/31/[address] [phone] Vicenta Nielsen NP Referral 10/26/2024 Orders Only [address] [address] Kimberly Bloom NP Pain of right hip (Primary Dx) 10/24/[address] [address] Vicenta Nielsen NP Referral 10/18/2024 Patient Outreach [address] [phone] Vicenta Nielsen NP Care Coordination (ICP care plan) 10/16/[address] [address] David Pate MA DME from [facility] 10/12/2024 Telephone [facility] [address] [place] [address] Vicenta Nielsen NP FYI 10/10/2024 Telephone [facility] [address] [place] [address] [phone] Vicenta Nielsen NP Medication Question 10/09/2024 Refill [facility] [address] [place] [address] Valery Berrios MD 09/29/2024 11:30 AM EST Office Visit [facility] [address] [place] [phone] Vicenta Nielsen NP Resistant hypertension (Primary Dx); Type 2 diabetes mellitus with hyperglycemia, with long-term current use of insulin ([facility]); Pain of right hip; Dental caries; Below-knee amputation of right lower extremity, subsequent encounter ([facility]) 09/29/2024 Travel 09/19/[address] [phone] Vicenta Nielsen NP callback from Last 3 Months Immunizations Name Administration [...] 11/10/2024 2:08 PM EST Plan of Treatment Upcoming Encounters Date Type Department Care Team ([facility] st Contact Info) Description 12/20/2024 11:15 AM EDT Office Visit [facility] [address] [place] [address] Vicenta Nielsen NP [address] [place] [address] Health Maintenance Due Date Last Done Comments [...] 06/02/2024, 12/31/2022 Depression Screening 07/25/2025 07/25/2024, 07/25/20 24 Alcohol/Substance Use Screening 09/29/2025 09/29/2024 Tobacco Screening [...] WHOLE BLOOD Routine 12/15/2024 10:10 AM EDT US RENAL BI Routine 12/06/2024 11:46 PM EST Left flank pain TSH W/REFLEX TO FT4 Routine 11/15/2024 1 1:01 AM EST Palpitations IRON AND TOTAL IRON BINDING CAPACITY Routine 11/15/2024 11:01 AM EST Hypertension, unspecified type 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, unspecified vessel or lesion type (CMS/HCC) Iron deficiency anemia due to chronic blood loss CBC WITH AUTO DIFFERENTIAL Routine 11/15/2024 11:01 AM EST Type 2 diabetes mellitus with hyperglycemia, with long-term current use of insulin (CMS/HCC) 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, unspecified vessel or lesion type (CMS/HCC) COMPREHENSIVE METABOLIC PANEL Routine 11/15/2024 11:01 AM EST Type 2 diabetes mellitus with hyperglycemia, with long-term current use of insulin (CMS/HCC) 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) POCT GLUCOSE Routine 09/29/2024 12:19 PM EST Type 2 diabetes mellitus with hyperglycemia, with long-term current use of insulin ([facility]) LIPID PANEL, STANDARD Routine 06/02/2024 11:59 AM EDT ALBUMIN, RANDOM URINE W/CREATININE Routine 06/02/2024 11:49 AM EDT from Last 3 Months or Most Recently Relevant to Health Maintenance Results * (ABNORMAL) Glucose, Whole Blood (12/15/2024 10:10 AM EDT) Glucose, Whole Blood 145(H) 60 - 115 mg/dL [facility] Comment:METER #: [id number] 5Testing performed in the Endocrinology Department [address] , [address], [facility]. 12/15/2024 10:1 0 AM EDT 12/15/2024 10:14 AM EDT us Generic External Data Provider LAB BLOOD ORDERAB LES Final Result Performing Organization Address City/State/[facility] Co de Phone Number [facility] [address] [place] [phone] * US RENAL BI (12/06/2024 11:46 PM EST) Anatomical Region Laterality Modality Abdomen Ultrasound 12/06/2024 11:4 6 PM EST Narrative 12/06/2024 11:49 PM EST ? [facility] ?[address] [place] [address]. ?[place] [address] ? Ultrasound Report ? Signed ? Patient: Murdza,Bam ?MR#: [id number] ?? 0 ? : 1965 ?Acct:[id number] ? Age/Sex: 59 / M ?ADM Date: 03/04/25 ? Loc: HO.US ? Attending Dr: Vicenta Nielsen PARTNERSHIP MANAGER ? Ordering Physician: Vicenta Nielsen NP ?? Date of Service: 12/05/24 ?? Procedure(s): US renal BI ?? Accession Number(s): [id number] ? cc: Vicenta Nielsen PARTNERSHIP MANAGER ? CLINICAL HISTORY: hx of stones, left flank pain, no hematuria ? US renal ? Comparison: None ? Findings: ? Right kidney 12.3 cm length. ?? No significant focal abnormality. ?? 9 mm midpole cyst noted. ? Left kidney 12.8 cm length. ?? No significant focal abnormality. ?? 1.5 cm upper pole cyst with calcified wall. ? No bilateral hydronephrosis. ?? Normal bilateral renal echogenicity. ? Impression: ? No significant abnormalities. ? This document has been electronically signed by: Alejandro Pérez MD on ?? 12/06/2024 23:46:59 ? Dictated By: ?Alejandro Pérez MD ? Signed By: ?<Electronically signed by Alejandro Pérez MD in OV> ? 12/06/248 ? DD/ 45 ? TD/TT: 12/06/242345 ? Load Out Supervisor: ? Procedure Note Dorothy Lr - 12/06/2024 [place] [address] Ultrasound Report Signed Patient: Delilah Wise#: [id number] 0 : 1965Acct:[id number] Age/Sex: 59 / MADM Date: 12/05/24 Loc: HO.US Attending Dr: Vicenta Nielsen NP Ordering Physician: Vicenta Nielsen NP Date of Service: 12/05/24 Procedure(s): US renal BI Accession Number(s): [id number] cc: Vicenta Nielsen NP CLINICAL HISTORY: hx of stones, left flank pain, no hematuria US renal Comparison: None Findings: Right kidney 12.3 cm length. No significant focal abnormality. 9 mm midpole cyst noted. Left kidney 12.8 cm length. No significant focal abnormality. 1.5 cm upper pole cyst with calcified wall. No bilateral hydronephrosis. Normal bilateral renal echogenicity. Impression: No significant abnormalities. This document has been electronically signed by: Alejandro Pérez MD on 12/06/2024 23:46:59 Dictated By: Alejandro Pérez MD Signed By: <Electronically signed by Alejandro Pérez MD in OV> 12/06/242347 DD/ 45 TD/TT: 12/06/242345 Load Out Supervisor: us Vicenta Nielsen NP IMG US PROCEDURES Edited Result - Final * TSH W/Reflex to FT4 (11/15/2024 11:01 AM EST) TSH reflex Free T4 1.53 0.32 - 4.0 uIU/mL [facility] Blood Venous blood specimen / Unknown 11/15/2024 11:01 AM EST 11/15/2024 11:10 AM EST us Vicenta Nielsen NP LAB BLOOD ORDERABLES Final Resul t [facility] [address] [place] [phone] * (ABNORMAL) CBC auto differential (11/15/2024 11:01 AM EST) White Blood Count 8.6 4.8 - 10.8 X10*3/uL [facility] Red Blood Count 3.97(L) 4.60 - 5.80 X10*6/uL [facility] Hemoglobin 11.1(L) 14.0 - 18.0 g/dl [facility] Hematocrit 33.5(L) 42.0 - 52.0 % [facility] Mean Corpuscular Volume 84.4 80.0 - 98.0 fL [facility] Mean Corpuscular Hemoglobin 28.0 27.0 - 33.0 pg [facility] Mean Corpuscular HGB Conc 33.1 31.0 - 36.0 g/dl [facility] Red Cell Distribution Width 13.7 11.0 - 16.0 % [facility] Platelet Count 239 160 - 400 X10*3/uL [facility] Mean Platelet Volume 10.7 9.4 - 12.4 fL [facility] Neutrophils Percent Auto 73.0 45 - 73 % [facility] Imm Gran Pct Auto 0.3 0.0 - 0.4 % [facility] Lymphocytes Percent Auto 15.2(L) 20 - 40 % [facility] Monocytes Percent Auto 9.0 2 - 11 % [facility] Eosinophils Percent Auto 1.7 0 - 4 % [facility] Basophils Percent Auto 0.8 0 - 2 % [facility] NRBC Pct Auto 0.0 0.0 - 0.2 /100WBC [facility] Neutrophils Absolute Auto 6.3 2.0 - 8.3 x10*3/uL [facility] Imm Gran Abs Auto 0.03 0.00 - 0.03 X10*3/uL [facility] Lymphocytes Absolute Auto 1.3 1.2 - 4.9 X10*3/uL [facility] Monocytes Absolute Auto 0.8 0.1 - 1.2 X10*3/uL [facility] Eosinophils Absolute Auto 0.2 0.0 - 0.4 X10*3/uL [facility] Basophils Absolute Auto 0.1 0.0 - 0.2 X10*3/uL [facility] NRBC Abs Auto 0.000 0.0 - 0.012 X10*3/uL [facility] Blood Venous blood specimen / Unknown 11/15/2024 11:01 AM EST 11/15/2024 11:10 AM EST us Vicenta Nielsen PARTNERSHIP MANAGER LAB BLOOD ORDERABLES Final Resul t [facility] [address] [place] [phone] * (ABNORMAL) Iron And Total Iron Binding Capacity (11/15/2024 11:01 AM EST) Iron 43(L) 45 - 160 mcg/dL [facility] Total Iron Binding Capacity 316 228 - 428 mcg/dL [facility] Percent Iron Saturation 14(L) 15 - 50 % [facility] Unsaturated Iron Binding 273 ug/dL [facility] Blood Venous blood specimen / Unknown 11/15/2024 11:01 AM EST 11/15/2024 11:10 AM EST us Vicenta Nielsen NP LAB BLOOD ORDERABLES Final Resul t [facility] [address] [place] [phone] * (ABNORMAL) Comprehensive Metabolic Panel (11/15/2024 11:01 AM EST) Sodium 135 135 - 145 mmol/L [facility] Potassium 5.0 3.3 - 5.1 mmol/L [facility] Chloride 103 96 - 108 mmol/L [facility] Carbon Dioxide 27 22 - 29 mmol/L [facility] Anion Gap 10(L) 12 - 20 [facility] Urea Nitrogen (BUN) 25(H) 9 - 16 mg/dL [facility] Creatinine, Serum 0.95 0.5 - 1.4 mg/dL [facility] Estimated Glomerular Filt Rate >60 [facility] Comment:Chronic Kidney Disea se: Estimated GFR < 60 mL/min/1.25h8Dadqdl Kidney Disease: Estimated GFR < 15 mL/min/1.73m2 Glucose 185(H) 60 - 115 mg/dL [facility] Calcium 8.9 8.4 - 10.2 mg/dL [facility] Bilirubin, Total 0.3 0.0 - 1.0 mg/dL [facility] Aspartate Amino Transferase 14 5 - 37 U/L [facility] Alanine Aminotransferase 10 0 - 40 U/L [facility] Total Protein 7.9 6.5 - 8.0 g/dL [facility] Albumin Level 4.0 3.5 - 5.0 g/dL [facility] Alkaline Phosphatase 93 39 - 117 U/L [facility] Blood Venous blood specimen / Unknown 11/15/2024 11:01 AM EST 11/15/2024 11:10 AM EST Vicenta Nielsen PARTNERSHIP MANAGER LAB BLOOD ORDERABLES Final Resul t [facility] [place] [address] [phone] * (ABNORMAL) POCT HGB A1C (11/10/2024 2:12 PM EST) Hemoglobin A1C 7.0(A) 4.0 - 6.0 % QC Media Lot # [id number] Lot# Expiration Date Blood 11/10/2024 2:12 PM EST Result [facility] Vicenta Nielsen PARTNERSHIP MANAGER POINT OF CARE TEST ENTER/EDIT OR DERABLES Final Result * POCT Glucose (11/10/2024 2:10 PM EST) Only the most recent of2 resultswithin the time period is included. Glucose Blood, POC 170 60 - 200 mg/dL QC Media Lot # [id number] Lot# Expiration Date [id number] Blood Capillary blood specimen / Unknown 11/10/2024 2:10 PM EST Vicenta Nielsen PARTNERSHIP MANAGER POINT OF CARE TEST ENTER/EDIT OR DERABLES Final Result * (ABNORMAL) Lipid Panel, Standard (06/02/2024 11:59 AM EDT) Triglycerides 61 <150 mg/dL [facility] Comment:Desirable Triglyceri de: less than 150 mg/dLBorderline High Triglyceride 150-199 mg/dLHigh Triglyceride: 200-499 mg/dLVery High Triglyceride: greater than or equal to 5OO mg/dL Cholesterol 85 <200 mg/dL [facility] Comment:Desirable Cholestero l: less than 200 mg/dLBorderline High Cholesterol: 200-239 mg/dLHigh Cholesterol: greater than 239 mg/dL LDL Cholesterol Calculated 43 <100 mg/dL [facility] Comment:Desirable LDL: less than 100 mg/dLNear Optimal/Above Optimal LDL: 110- 129 mg/dLBorderline High LDL: 130-159 mg/dLHigh LDL: 160-189 mg/dLVery High LDL: greater than or equal to 190 mg/dL HDL Cholesterol 30(L) >40 mg/dL [facility] Comment:Desirable HDL: great er than 40 mg/dL Note: This HDL assay may give artificially low results in patients with liver disease. 06/02/2024 11:5 9 AM EDT 06/02/2024 11:59 AM EDT us Generic External Data Provider LAB BLOOD ORDERAB LES Final Result Performing Organization Address [facility] Co de Phone Number [facility] [address] [place] [phone] * Albumin, Random Urine W/Creatinine (06/02/2024 11:49 AM EDT) Creatinine, Urine 75.26 mg/dL [facility] Microalbumin Urine 10.0 mg/L [facility] Microalbum Creatinine Ratio Ur 13.2 <30 ug/mg cr [facility] Comment:Albumin/Creatinine R atio Reference Ranges: Normal: < 30 ug/mg creatinine Microalbuminuria: 30 - 300 ug/mg creatinineClinical Albuminuria: > 300 ug/mg creatinine 06/02/2024 11:4 9 AM EDT 06/02/2024 1:11 PM EDT Generic External Data Provider LAB URINE ORDERAB LES Final Result Performing Organization Address [facility]/ZIP Co de Phone Number [facility] [address] [place] [phone] from Last 3 Months or Most Recently Relevant to Health Maintenance Insurance [facility] C3 Care Teams Power Tool Repair Technician Relationship Specialty Start Date End Date Vicenta Nielsen NP [address] [place] [address] PCP - General Family Medicine 12/22/23 [employer] 04/29/24 abigail [email or web address] Editorial CartoonistClearing Hand 10/18/24
--- OUTSIDE RECORDS SUMMARY | 2024-12-15 11:05 | XMS_ITS | Encounter Summary ---
Author Organization [employer] Address [address] [place] [address] 7t [place] [address] Care Team Providers Care Receiving Tank Operator Name Role Phone Vicenta Nielsen NP Primary Care Provider [phone] Reason for Visit * Reason Onset Date Comments Results 12/08/2024 Encounter Details Date Type Department Care Team ([facility] st Contact Info) Description 12/08/2024 Telephone [facility] [address] [place] [address] Ronna Juarez MA Results Social History Tobacco Use Types Packs/Day Years [...] Telephone Encounter - Ronna Juarez MA - 12/08/2024 9:08 AM EST JUSTINO Canales MA Please let pt know renal ultrasound was normal Related information, Pt understood. documented in this encounter Plan of Treatment Upcoming Encounters Date Type Department Care Team (Late st Contact Info) Description 12/20/2024 11:15 AM EDT Office Visit [facility] [address] [place] [address] Vicenta Nielsen NP [address] [place] [address] documented as of this encounter Visit Diagnoses Not on filedocumented in this encounter Additional Health Concerns Assessment Noted Time PHQ-9 Depression Total Score: 7 07/25/20 9:24 AM EDT documented as of this encounter Care Teams Receiving Tank Operator Relationship Specialty Start Date End Date Vicenta Nielsen NP [address] [place] [address] PCP - General Family Medicine 12/22/23 [employer] 04/29/24 abigail [email or web address] Filler ShredderJoist Setter 10/18/24 documented as of this encounter
--- OUTSIDE RECORDS SUMMARY | 2024-12-15 11:05 | XMS_ITS | Encounter Summary ---
Author Organization [employer] Address [address] [place] [address] 7 [place] [address] Care Team Providers Care Powerhouse Mechanic Supervisor Name Role Phone Valery Berrios MD Primary Care Provider [phone] Vicenta Nielsen NP Primary Care Provider [phone] Encounter Details Date Type Department Care Team (Late st Contact Info) Description 04/21/2023 Orders Only [facility] & PEDS [address] [place] [address] Valery Berrios MD [address] [place] [address] Other iron deficiency anemia Social History Tobacco [...] Description 12/20/2024 11:15 AM EDT Office Visit [facility] [address] [place] [address] Vicenta Nielsen NP [address] [place] [address] documented as of this encounter Visit Diagnoses Diagnosis Other iron deficiency anemia documented in this encounter Additional Health Concerns Assessment Noted Time PHQ-9 Depression Total Score: 0 10/20/19 23 2:41 PM EST documented as of this encounter Care Teams Powerhouse Mechanic Supervisor Relationship Specialty Start Date End Date Valery Berrios MD [address] [place] [address] PCP - General Internal Medicine 12/01/18 12/21/23 Vicenta Nielsen NP [address] [place] [address] PCP - General Family Medicine 12/22/23 [employer] 04/29/24 abigail [email or web address] Salvage Inspector Wood PartsWood Gang Sawyer 10/18/24 documented as of this encounter
--- OUTSIDE RECORDS SUMMARY | 2024-12-15 11:05 | XMS_ITS | Clinical Summary ---
Author Organization [facility] Address [address] [place] [address] Care Team Providers Care Retail Clerk Name Role Phone Vicenta Nielsen Primary Care Provider [phone] Allergies Active Allergy Reactions Criticality Noted Date [...] age to complete this topic Care Teams Retail Clerk Relationship Specialty Start Date End Date Vicenta Nielsen [address] [place] [phone] PCP - General Family Medicine 05/26/24
--- OUTSIDE RECORDS SUMMARY | 2024-12-15 11:05 | XMS_ITS | Encounter Summary ---
Author Organization [employer] Address [address] [place] [address] 7t [place] [address] Care Team Providers Care Plasma Processing Centrifuge Operator Name Role Phone Vicenta Nielsen NP Primary Care Provider [phone] Reason for Visit * Reason Onset Date Comments FYI 10/12/2024 Encounter Details Date Type Department Care Team ([facility] st Contact Info) Description 10/12/2024 Telephone [facility] [address] [place] [address] Vicenta Nielsen NP [address] [place] [address] FYI Social History Tobacco Use Types Packs/Day [...] Description 12/20/2024 11:15 AM EDT Office Visit [facility] [address] [place] [address] Vicenta Nielsen NP [address] [place] [address] documented as of this encounter Visit Diagnoses Not on filedocumented in this encounter Additional Health Concerns Assessment Noted Time PHQ-9 Depression Total Score: 7 07/25/20 9:24 AM EDT documented as of this encounter Care Teams Plasma Processing Centrifuge Operator Relationship Specialty Start Date End Date Vicenta Nielsen NP [address] [place] [address] PCP - General Family Medicine 12/22/23 [employer] 04/29/24 abigail [email or web address] Lehr StripperMotion Pictures Cartoonist 10/18/24 documented as of this encounter
--- OUTSIDE RECORDS SUMMARY | 2024-12-15 11:05 | XMS_ITS | Encounter Summary ---
Author Organization [employer] Address [address] [place] [address] 7t [place] [address] Care Team Providers Care Stuntman Name Role Phone Vicenta Nielsen NP Primary Care Provider [phone] Reason for Visit * Reason Onset Date Comments Referral 10/31/2024 Encounter Details Date Type Department Care Team ([facility] st Contact Info) Description 10/31/2024 Telephone [facility] [address] [place] [address] Vicenta Nielsen NP [address] [place] [address] Referral Social History Tobacco Use Types Packs/Day [...] Miscellaneous Notes * Telephone Encounter - Jacobo Cardenass - 10/31/2024 10:22 AM EST Tc from pt requesting a referral for Physical Therapy for his hip knee and for exercise on leg. Pt legs are amputated. Pt states that he is in a lot of pain. Contact pt: [phone] documented in this encounter Plan of Treatment Upcoming Encounters Date Type Department Care Team (Late st Contact Info) Description 12/20/2024 11:15 AM EDT Office Visit [facility] [address] [place] [address] Vicenta Nielsen NP [address] [place] [address] documented as of this encounter Visit Diagnoses Not on filedocumented in this encounter Additional Health Concerns Assessment Noted Time PHQ-9 Depression Total Score: 7 07/25/20 9:24 AM EDT documented as of this encounter Care Teams Stuntman Relationship Specialty Start Date End Date Vicenta Nielsen NP [address] [place] [address] PCP - General Family Medicine 12/22/23 [employer] 04/29/24 abigail [email or web address] Roofer Helper Vinyl CoatingBrush Painter 10/18/24 documented as of this encounter
--- OUTSIDE RECORDS SUMMARY | 2024-12-15 11:05 | XMS_ITS | Encounter Summary ---
Author Organization [employer] Address [address] [place] [address] 7 [place] [address] Care Team Providers Care Work And Family Life Consultant Name Role Phone Vicenta Nielsen NP Primary Care Provider [phone] Reason for Visit * Reason Onset Date Comments PT1 05/29/2024 Encounter Details Date Type Department Care Team ([facility] st Contact Info) Description 05/29/2024 Telephone [facility] [address] [place] [address] Vicenta Nielsen NP [address] [place] [address] PT1 Social History Tobacco Use Types Packs/Day [...] PM EDT Tc from pt requesting for [address] [place] [address] PT1 to be modified for Yes escort and Door to Door breaker up machine operator . documented in this encounter Plan of Treatment Upcoming Encounters Date Type Department Care Team (Late st Contact Info) Description 12/20/2024 11:15 AM EDT Office Visit [facility] [address] [place] [address] Vicenta Nielsen NP [address] [place] [address] documented as of this encounter Visit Diagnoses Not on filedocumented in this encounter Additional Health Concerns Assessment Noted Time PHQ-9 Depression Total Score: 5 01/04/20 10:57 AM EDT documented as of this encounter Care Teams Work And Family Life Consultant Relationship Specialty Start Date End Date Vicenta Nielsen NP [address] [place] [address] PCP - General Family Medicine 12/22/23 [employer] 04/29/24 abigail [email or web address] Engine SetterCharacter Artist 10/18/24 documented as of this encounter
--- OUTSIDE RECORDS SUMMARY | 2024-12-15 11:05 | XMS_ITS | Encounter Summary ---
Author Organization [employer] Address [address] [place] [address] 7t [place] [address] Care Team Providers Care Drywall Stripper Name Role Phone Vicenta Nielsen NP Primary Care Provider [phone] Reason for Visit * Reason Comments Med Refill Encounter Details Date Type Department Care Team ([facility] st Contact Info) Description 12/07/2024 Refill [facility] MED & PEDS [address] [place] [address] Vicenta Nielsen NP [address] [place] [address] Social History Tobacco Use Types Packs/Day Years [...] 11:15 AM EDT Office Visit [facility] [address] [place] [address] Vicenta Nielsen NP [address] [place] [address] documented as of this encounter Visit Diagnoses Not on filedocumented in this encounter Additional Health Concerns Assessment Noted Time PHQ-9 Depression Total Score: 7 07/25/20 24 9:24 AM EDT documented as of this encounter Care Teams Drywall Stripper Relationship Specialty Start Date End Date Vicenta Nielsen NP [address] [place] [address] PCP - General Family Medicine 12/22/23 [employer] 04/29/24 abigail [email or web address] Skidway ManLoan Underwriter 10/18/24 documented as of this encounter
--- OUTSIDE RECORDS SUMMARY | 2024-12-15 11:05 | XMS_ITS | Encounter Summary ---
Author Organization [employer] Address [address] [place] [address] 7 [place] [address] Care Team Providers Care Snuff Container Inspector Name Role Phone Valery Berrios MD Primary Care Provider [phone] Vicenta Nielsen NP Primary Care Provider [phone] Reason for Visit * Reason Onset Date Comments Ultrasound Status 11/18/2022 Encounter Details Date Type Department Care Team ([facility] st Contact Info) Description 11/18/[address] [facility] CHC MED & PEDS [address] [place] [address] Valery Berrios MD [address] [place] [address] Ultrasound Status Social History Tobacco Use Types [...] good effect. Pt informed this RN checked [facility] and there is no dx of his complain. Pt advised letter cannot be written without appropriate dx and that pt can call [facility] back with the numberfor the urologist so that PCP's office can f/u with them to request notes and update dx. Pt also gave this RN the number to the methadone clinic to f/u. RN called [phone], phone recording statesnumber you have dialed is not in service. Pt agreed to call [facility] back with the number for the [...] understand him. States PCP may not understand Japanese or that he may just be being [...] any question please contact the clinic at [phone] [facility]. Pt is also requesting for his Coordinator to give him a call back. If any questions please contact pt at [phone] documented in this encounter Plan of Treatment Upcoming Encounters Date Type Department Care Team (Late st Contact Info) Description 12/20/2024 11:15 AM EDT Office Visit [facility] MEDICINE [address] [place] [address] Vicenta Nielsen NP [address] [place] [address] documented as of this encounter Visit Diagnoses Not on filedocumented in this encounter Additional Health Concerns Assessment Noted Time PHQ-9 Depression Total Score: 0 10/20/19 23 2:41 PM EST documented as of this encounter Care Teams Snuff Container Inspector Relationship Specialty Start Date End Date Valery Berrios MD [address] [place] [address] PCP - General Internal Medicine 12/01/18 12/21/23 Vicenta Nielsen NP [address] [place] [address] PCP - General Family Medicine 12/22/23 [employer] 04/29/24 abigail [email or web address] Emergency Dispatch OperatorGuidance Adviser 10/18/24 documented as of this encounter
--- OUTSIDE RECORDS SUMMARY | 2024-12-15 11:05 | XMS_ITS | Encounter Summary ---
Author Organization [employer] Address [address] [place] [address] 7t [place] [address] Care Team Providers Care Merchandise Flow Manager Name Role Phone Vicenta Nielsen NP Primary Care Provider [phone] Reason for Visit * Reason Onset Date Comments Lab Orders 10/31/2024 Encounter Details Date Type Department Care Team (Late st Contact Info) Description 10/31/2024 Telephone [facility] [address] [place] [address] Vicenta Nielsen NP [address] [place] [address] Lab Orders Social History Tobacco Use Types [...] [facility]. Pt also c/o left sided internal rib [...] would like to have labs done at [facility] when he goes so that he can [...] 11:15 AM EDT Office Visit [facility] [address] [place] [address] Vicenta Nielsen NP [address] [place] [address] documented as of this encounter Visit Diagnoses Not on filedocumented in this encounter Additional Health Concerns Assessment Noted Time PHQ-9 Depression Total Score: 7 07/25/20 9:24 AM EDT documented as of this encounter Care Teams Merchandise Flow Manager Relationship Specialty Start Date End Date Vicenta Nielsen NP [address] [place] [address] PCP - General Family Medicine 12/22/23 [employer] 04/29/24 abigail mcneill Senior PlannerBusiness Planning Manager 10/18/24 documented as of this encounter
--- OUTSIDE RECORDS SUMMARY | 2024-12-15 11:05 | XMS_ITS | Encounter Summary ---
Author Organization [employer] Address [address] [place] [address] 7t [place] [address] Care Team Providers Care Tester Armature Or Fields Name Role Phone Vicenta Nielsen NP Primary Care Provider [phone] Reason for Visit * Reason Onset Date Comments Call Back Request 03/10/2024 Encounter Details Date Type Department Care Team ([facility] st Contact Info) Description 03/10/2024 Telephone [facility] [address] [place] [address] Vicenta Nielsen NP [address] [place] [address] Call Back Request Social History Tobacco Use [...] scanned in chart. Please contact pt at [phone] documented in this encounter Plan of Treatment Upcoming Encounters Date Type Department Care Team (Late st Contact Info) Description 12/20/2024 11:15 AM EDT Office Visit [facility] [address] [place] [address] Vicenta Nielsen NP [address] [place] [address] documented as of this encounter Visit Diagnoses Not on filedocumented in this encounter Additional Health Concerns Assessment Noted Time PHQ-9 Depression Total Score: 5 01/04/20 10:57 AM EDT documented as of this encounter Care Teams Tester Armature Or Fields Relationship Specialty Start Date End Date Vicenta Nielsen NP [address] [place] [address] PCP - General Family Medicine 12/22/23 [employer] 04/29/24 abigail [email or web address] Event Sales RepresentativeEnvironmental Monitoring Technician 10/18/24 documented as of this encounter
--- OUTSIDE RECORDS SUMMARY | 2024-12-15 11:05 | XMS_ITS | Encounter Summary ---
Author Organization [employer] Address [address] [place] [address] 7t [place] [address] Care Team Providers Care Curator Name Role Phone Vicenta Nielsen NP Primary Care Provider [phone] Reason for Visit * Reason Onset Date Comments Nurse Triage 08/01/2024 Encounter Details Date Type Department Care Team ([facility] st Contact Info) Description 08/01/2024 Telephone [facility]INE [address] [place] [address] Vicenta Nielsen NP [address] [place] [address] Nurse Triage Social History Tobacco Use Types [...] amputation. Pt offered to seek care at [facility]. Pt declines states will have [facility] call tomorrow with update on what area looks like based on their assessment. Reviewed home care advise, ER precautions and reasons to call back. Reviewed [facility] operating hours and that wait times [...] Description 12/20/2024 11:15 AM EDT Office Visit [facility] [address] [place] [address] Vicenta Nielsen NP [address] [place] [address] documented as of this encounter Visit Diagnoses Not on filedocumented in this encounter Additional Health Concerns Assessment Noted Time PHQ-9 Depression Total Score: 7 07/25/20 24 9:24 AM EDT documented as of this encounter Care Teams Curator Relationship Specialty Start Date End Date Vicenta Nielsen NP [address] [place] [address] PCP - General Family Medicine 12/22/23 [employer] 04/29/24 abigail [email or web address] Fulling Mill OperatorV Belt Curer 10/18/24 documented as of this encounter
--- OUTSIDE RECORDS SUMMARY | 2024-12-15 11:05 | XMS_ITS | Encounter Summary ---
Author Organization [facility] Address [address] [place] [address] Care Team Providers Care Ripsawyer Name Role Phone Vicenta Nielsen DITCHING MACHINE OPERATOR Primary Care Provider [phone] Encounter Details Date Type Department Care Team (Late st Contact Info) Description 08/07/2024 Lab Requisition [facility] [address] [place] [phone] Mary Song PA [address] [address] Obesity, unspecified Social History Tobacco Use Types [...] Info) Description 12/28/2024 11:00 AM EDT Evaluation [facility] [address] [phone] Yoav Freitas, PT documented as of this [...] CBC auto differential (08/07/2024 12:00 AM EST) [facility] WBC 5.4 4.8 - 10.8 K/mcL LAB HEMETOLOGY METHOD 08/07/2024 7:14 PM [facility] RBC 3.80(L) 4.50 - 5.50 M/mcL LAB HEMETOLOGY METHOD 08/07/2024 7:14 PM [facility] Hemoglobin 9.9(L) 13.5 - 17.5 g/dL LAB HEMETOLOGY METHOD 08/07/2024 7:14 PM [facility] Hematocrit 31.4(L) 42.0 - 54.0 % LAB HEMETOLOGY METHOD 08/07/2024 7:14 PM [facility] MCV 83.7 79.0 - 98.0 FL LAB HEMETOLOGY METHOD 08/07/2024 7:14 PM [facility] MCH 26.4(L) 27.0 - 32.0 pcg LAB HEMETOLOGY METHOD 08/07/2024 7:14 PM [facility] MCHC 31.5(L) 32.0 - 37.0 g/dL LAB HEMETOLOGY METHOD 08/07/2024 7:14 PM [facility] RDW 14.6 11.0 - 15.0 % LAB HEMETOLOGY METHOD 08/07/2024 7:14 PM [facility] Platelets 186 130 - 400 K/mcL LAB HEMETOLOGY METHOD 08/07/2024 7:14 PM [facility] MPV 12.0(H) 7.0 - 11.0 FL LAB HEMETOLOGY METHOD 08/07/2024 7:14 PM [facility] NRBC 0.0 <1.0 % LAB HEMETOLOGY METHOD 08/07/2024 7:14 PM [facility] NRBC Absolute 0.00 <0.10 K/mcL LAB HEMETOLOGY METHOD 08/07/2024 7:14 PM [facility] Neutrophils Relative 59.9 % LAB HEMETOLOGY METHOD 08/07/2024 7:14 PM [facility] Lymphocytes Relative 25.9 % LAB HEMETOLOGY METHOD 08/07/2024 7:14 PM [facility] Monocytes Relative 9.6 % LAB HEMETOLOGY METHOD 08/07/2024 7:14 PM [facility] Eosinophils Relative 3.5 % LAB HEMETOLOGY METHOD 08/07/2024 7:14 PM [facility] Basophils Relative 0.9 % LAB HEMETOLOGY METHOD 08/07/2024 7:14 PM [facility] Immature Granulocytes Relative 0.2 % LAB HEMETOLOGY METHOD 08/07/2024 7:14 PM [facility] Neutrophils Absolute 3.26 1.50 - 7.00 K/mcL LAB HEMETOLOGY METHOD 08/07/2024 7:14 PM [facility] Lymphocytes Absolute 1.41 1.00 - 5.00 K/mcL LAB HEMETOLOGY METHOD 08/07/2024 7:14 PM [facility] Monocytes Absolute 0.52 0.20 - 1.00 K/mcL LAB HEMETOLOGY METHOD 08/07/2024 7:14 PM [facility] Eosinophils Absolute 0.19 0.00 - 0.50 K/mcL LAB HEMETOLOGY METHOD 08/07/2024 7:14 PM [facility] Basophils Absolute 0.05 0.00 - 0.20 K/mcL LAB HEMETOLOGY METHOD 08/07/2024 7:14 PM EST [facility] Immature Granulocytes Absolute 0.01 0.00 - 0.03 K/mcL LAB HEMETOLOGY METHOD 08/07/2024 7:14 PM EST [facility] Blood Venous blood specimen / Unknown Venipuncture / Unknown 08/07/2024 08/07/2024 7:01 PM EST Mary ROE LAB BLOOD ORDERABLES Final Result Performing Organization Address City/[facility]/ZIP Co de Phone Number [facility] [address] [place] [address], [place] [phone] * Creatine kinase (08/07/2024 12:00 AM EST) [facility] Total CK 48 22 - 269 unit/L LAB CHEMISTRY METHOD 08/07/2024 7:36 PM EST [facility] Blood Venous blood specimen / Unknown Venipuncture / Unknown 08/07/2024 08/07/2024 7:01 PM EST Mary ROE LAB BLOOD ORDERABLES Final Result Performing Organization Address [facility]/ZIP Co de Phone Number [facility] [address] [place] [address], [place] [phone] * (ABNORMAL) Comprehensive metabolic panel (08/07/2024 12:00 AM EST) [facility] Sodium 135 133 - 145 mmol/L LAB CHEMISTRY METHOD 08/30/2024 9:16 AM EST [facility] Potassium 4.6 3.5 - 5.5 mmol/L LAB CHEMISTRY METHOD 08/30/2024 9:16 AM EST [facility] Chloride 101 96 - 110 mmol/L LAB CHEMISTRY METHOD 08/30/2024 9:16 AM EST [facility] CO2 28 21 - 32 mmol/L LAB CHEMISTRY METHOD 08/30/2024 9:16 AM EST [facility] Anion Gap 6 3 - 11 LAB CHEMISTRY METHOD 08/30/2024 9:16 AM [facility] Glucose 252(H) 70 - 100 mg/dL LAB CHEMISTRY METHOD 08/30/2024 9:16 AM [facility] BUN 29(H) 5 - 25 mg/dL LAB CHEMISTRY METHOD 08/30/2024 9:16 AM [facility] Creatinine 1.00 0.70 - 1.30 mg/dL LAB CHEMISTRY METHOD 08/30/2024 9:16 AM [facility] eGFR 87 >=60 mL/min/1. 73m2 LAB CHEMISTRY METHOD 08/30/2024 9:16 AM [facility] Comment:Calculation based on the??Chronic Kidney Disease Epidemiology Collaboration (CKD-EPI) equation refit??without adjustment for race. BUN/Creatinine Ratio 29.0 LAB CHEMISTRY METHOD 08/30/2024 9:16 AM [facility] Calcium 9.5 8.5 - 10.5 mg/dL LAB CHEMISTRY METHOD 08/30/2024 9:16 AM [facility] AST (SGOT) 14 10 - 42 unit/L LAB CHEMISTRY METHOD 08/30/2024 9:16 AM [facility] ALT (SGPT) 22 10 - 60 unit/L LAB CHEMISTRY METHOD 08/30/2024 9:16 AM [facility] Alkaline Phosphatase 82 42 - 121 unit/L LAB CHEMISTRY METHOD 08/30/2024 9:16 AM [facility] Total Protein 7.4 6.0 - 8.0 g/dL LAB CHEMISTRY METHOD 08/30/2024 9:16 AM [facility] Albumin 3.7 3.2 - 5.0 g/dL LAB CHEMISTRY METHOD 08/30/2024 9:16 AM [facility] Total Bilirubin 0.2 0.0 - 1.4 mg/dL LAB CHEMISTRY METHOD 08/30/2024 9:16 AM EST [facility] Blood Venous blood specimen / Unknown Venipuncture / Unknown 08/07/2024 08/07/2024 7:01 PM EST us Mary ROE LAB BLOOD ORDERABLES Edite d Result - Final [facility] [address] [place] [address], documented in this encounter Visit Diagnoses Diagnosis Obesity, unspecified documented in this encounter Care Teams Ripsawyer Relationship Specialty Start Date End Date Vicenta Nielsen FNP [address] [place] [phone] PCP - General 05/26/24 documented as of this encounter
--- OUTSIDE RECORDS SUMMARY | 2024-12-15 11:05 | XMS_ITS | Encounter Summary ---
Author Organization [employer] Address [address] [place] [address] [address] [place] [address] Care Team Providers Care Entertainment Director Name Role Phone Vicenta Nielsen NP Primary Care Provider [phone] Reason for Visit * Reason Onset Date Comments Durable Medical Equipment 08/18/2024 Encounter Details Date Type Department Care Team ([facility] st Contact Info) Description 08/18/2024 Telephone [facility] [address] [place] [address] Vicenta Nielsen NP [address] [place] [address] Durable Medical Equipment Social History Tobacco Use [...] leg and he feels insecure. Callback number [phone] documented in this encounter Plan of Treatment Upcoming Encounters Date Type Department Care Team (Late st Contact Info) Description 12/20/2024 11:15 AM EDT Office Visit [facility] [address] [place] [address] Vicenta Nielsen NP [address] [place] [address] documented as of this encounter Visit Diagnoses Not on filedocumented in this encounter Additional Health Concerns Assessment Noted Time PHQ-9 Depression Total Score: 7 07/25/20 24 9:24 AM EDT documented as of this encounter Care Teams Entertainment Director Relationship Specialty Start Date End Date Vicenta Nielsen NP [address] [place] [address] PCP - General Family Medicine 12/22/23 Blink 04/29/24 abigail mcneill HookmanSwitchboard Receptionist 10/18/24 documented as of this encounter
--- OUTSIDE RECORDS SUMMARY | 2024-12-15 11:05 | XMS_ITS | Encounter Summary ---
Author Organization [employer] Address [address] [place] [address] 7[address] [place] [address] Care Team Providers Care Bean Sprout Grower Name Role Phone Vicenta Nielsen NP Primary Care Provider [phone] Reason for Visit * Reason Onset Date Comments PT-1 10/31/2024 Encounter Details Date Type Department Care Team ([facility] st Contact Info) Description 10/31/2024 Telephone [facility] [address] [place] [address] Vicenta Nielsen NP [address] [place] [address] PT-1 Social History Tobacco Use Types Packs/Day [...] facility name: [address] [facility] [facility] Escort needed: Y/N: Yes Do you have a wheelchair: Y/N: Yes If yes- Manual or electric: electric Visits: (3) ( x monthly) * Telephone Encounter - Jacobo Ross - 10/31/2024 10:29 AM EST Patient calling requesting PT1 Home Address verified: Y/N: Yes [facility] [address] [place] [address] Escort needed: Y/N: Yes Do you have a wheelchair: Y/N: Yes If yes- Manual or electric: Electric Visits: (amount of visits) ( x monthly, weekly, daily) 10 times a month for 3 month documented in this encounter Plan of Treatment Upcoming Encounters Date Type Department Care Team ([facility] st Contact Info) Description 12/20/2024 11:15 AM EDT Office Visit [facility] [address] [place] [address] Vicenta Nielsen NP [address] [place] [address] documented as of this encounter Visit Diagnoses Not on filedocumented in this encounter Additional Health Concerns Assessment Noted Time PHQ-9 Depression Total Score: 7 07/25/20 24 9:24 AM EDT documented as of this encounter Care Teams Bean Sprout Grower Relationship Specialty Start Date End Date Vicenta Nielsen NP [address] [place] [address] PCP - General Family Medicine 12/22/23 Business Texter 04/29/24 abigail mcneill Dtp OperatorElectric Motor Rebuilder 10/18/24 documented as of this encounter
== END 2024-12-15 10:49 | disposition home or self-care (01) ==
LOC: HO.ENCR 09:53
PROVIDERS: PCP Nurse Practitioner Family; Visit Provider Physician Assistant Medical
DX: E11.9 Type 2 diabetes mellitus without complications (principal); Z79.4 Long term (current) use of insulin

== ENCOUNTER → 2024-12-15 09:52 | Outpatient (BNVA) | payer MEDICAID, SELFPAY | PROVIDERS: PCP Nurse Practitioner Family; Visit Provider Physician Assistant Medical | DX: E11.9 Type 2 diabetes mellitus without complications (principal); Z79.4 Long term (current) use of insulin | CPT/HCPCS: 82947; 83036; 99212 ==

== ENCOUNTER → 2025-01-26 13:18 | Outpatient (REF) | payer MEDICAID, SELFPAY ==
--- NOTE | 2025-01-26 13:25 | CA_ITS ---
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 Suspect >50%. - No obvious valvular pathology seen on this study. Findings Left Ventricle Normal left ventricular cavity size. There is mildly increased left ventricular wall thickness. Regional wall motion abnormalities can not be excluded due to suboptimal endocardial definition. Diastolic function is normal for age. Due to poor endocardial definition, LVEF difficult to assess. Suspect >50%. LV peak GLS -15.3%, mildly reduced. Right Ventricle Mildly increased right ventricular cavity size. There is normal right ventricular systolic function. Atria Both atria are normal in size. Aortic Valve There is a normal trileaflet aortic valve. There is mild calcification of the aortic valve. There is no aortic valve stenosis. There is no aortic valve regurgitation. Mitral Valve There is mild mitral annular calcification. There is trace mitral valve regurgitation. There is no mitral valve stenosis. Pulmonic Valve The pulmonic valve is likely normal. Tricuspid Valve There is trace tricuspid valve regurgitation. There is no evidence of pulmonary hypertension. Great Vessels The asc aorta is normal in size. Venous The inferior vena cava is normal in size and collapses greater than 50% with inspiration. Pericardium/Pleural There is no evidence of pericardial effusion. Prior Study Comparison No significant change compared to prior study dated: 02/07/2024. Recommendations, Care & Conclusions No obvious valvular pathology seen on this study. Measurements 2D Linear Measurements IVSd: 1.08 0.6-0.9/0.6-1.0 cm LVIDd: 5.63 3.9-5.3/4.2-5.9 cm LVIDd Index: 2.42 2.4-3.2/2.2-3.1 cm/m2 LVIDs: 3.45 2.0-3.6 cm LVPWd: 1.08 0.7-1.1 cm LA Diam: 4.90 2.7-3.8/3.0-4.0 cm LAIDs Index: 2.10 1.5-2.3 cm/m2 LV Mass: 306.05 67-162/88-224 g LV Mass Index: 131.35 43-95/49-115 g/m2 LVOT Diam: 2.10 3.0+(-)1.3 cm 2D Systolic Function EF 4C: 57.60 >55% EF 2C: 60.30 >55% EF BiP: 57.70 >55% Mitral Valve MV Pk E: 1.09 MV PK A: 1.13 MV Decel Time: 236.00 E/A: 1.00 E'Lateral: 9.03 E'Medial: 6.96 E/E' Med: 15.70 E/E' Lat: 12.10 PHT: 69.00 MVA PHT: 3.19 Decel [place]: 4.63 Aortic Valve AoV Pk Regis: 1.85 AoV Mn Regis: 1.29 AoV VTI: 0.43 AoV Pk Grad: 14.00 Aov Mn Grad: 7.00 DAY Cont.VTI: 2.10 LVOT LVOT Pk Regis: 1.11 LVOT Mn Regis: 0.81 LVOT VTI: 0.26 LVOT Pk Grad: 5.00 LVOT Mn Grad: 3.00 LVOT Diam: 2.10 LVOT Area: 3.46 Diastolic Function MV Pk E: 1.09 MV Pk A: 1.13 E/A: 1.00 E'Medial: 6.96 E/E' Med: 15.70 E' Laterial: 9.03 E/E' Lat: 12.10 Right Ventricle TAPSE (mm): 33.10 TVS' Regis: 14.90 Tricuspid Valve TR Pk Regis: 2.24 TR Pk Grad: 20.00 RA Press: 3.00 RVSP: 23.00 Great Vessels Aorta Sinus of Valsalva: 3.30 2.0-3.5 cm Ao Asc: 3.50 2.1-3.4 cm Pulmonary Valve PV Pk Regis: 1.49 Peak PV Grad: 9.00 Updated in Other Vendor System with Status of Final Oleg Denny MD electronically signed on 01/27/2025 12:37:45 PM with status of Final
--- OUTSIDE RECORDS SUMMARY | 2025-01-26 14:01 | XMS_ITS | Clinical Summary ---
Author Organization [employer] Address [address] [place] [address] [address] [place] [address] Care Team Providers Care Digital Archivist Name Role Phone Vicenta Nielsen NP Primary Care Provider Allergies Active Allergy Reactions Criticality Noted Date Comments Bee Pollen 05/07/2023 Bee Venom Anaphylaxis High 12/15/2018 Beeswax Unknown 03/21/2024 Per [place] Erythromycin Itching 07/04/2019 Iodinated Contrast Media Shortness of breath High 11/20/2022 Iodine 12/15/2018 Medications * This document contains information received from the source organization and may not represent a complete record from that organization. Blood Glucose Monitoring Suppl (Digitel Warren Lite) w/Device kit TEST BLOOD SUGAR FOUR TIMES DAILY 022 Active Continuous Blood Gluc Director Critical Care (FreeStyle Oumar 2 [place]) device USE DIRECTED EVERY DAY 022 Active METHADONE HCL PO Take 115 mg by mouth in the morning. Active Diclofenac Sodium 1 % gelIndications :Chronic pain of both knees,Left hip pain,Chronic right shoulder pain To apply to the affected areas 3 times a day 100 g 1 023 Active Nutritional Supplements (Yared) powderIndicati ons:Amputation of right great toe (CMS/HCC) 1 packet to dilute in 8 oz of water 2 times a day 545 g 3 023 Active Continuous Blood Gluc Sensor (FreeStyle Oumar 2 Sensor) misc USE DIRECTED TO TEST BLOOD SUGAR. CHANGE EVERY 14 DAYS . 2 each 11 024 Active ipratropium-al buterol (Combivent Respimat) 20-100 MCG/ACT inhalerIndicat ions:COPD mixed type (CMS/HCC) Inhale 1 puff if needed in the morning, at noon, in the evening, and at bedtime for wheezing. 4 g 2 Active Multiple Vitamin (Multivitamin) tablet Take 1 tablet by mouth in the morning. Active atorvastatin (Lipitor) 20 MG tablet Take 1 tablet (20 mg) by mouth at bedtime. 90 tablet 3 024 2024 Active Blood Pressure Monitoring (Blood Pressure Cuff) misc Use daily as prescribed 1 each 024 Active Lactobacillus Probiotic tabletIndicati ons:Chronic antibiotic suppression Take 1 tablet by mouth 3 times daily. 90 tablet 2 Active insulin lispro (HumaLOG) 100 UNIT/ML injection 2-17 units subcutaneous with meals and snacks 15 mL Active olmesartan-hyd roCHLOROthiazi de (Benicar HCT) 40-25 MG tabletIndicati ons:Hypertensi on, unspecified type Take 1 tablet by mouth Once per day. 90 tablet 1 025 2025 Active GaviLAX 17 GM/SCOOP powder TAKE 17 GM MIXED IN 8 OUNCES OF WATER ONCE DAILY FOR 3 DAYS 510 g 1 025 Active FREESTYLE LITE test stripIndicatio ns:Type 2 diabetes mellitus without complication, with long-term current use of insulin ([facility]) USE DIRECTED TO TEST BLOOD SUGAR FOUR TIMES DAILY 100 strip 11 025 Active baclofen (Lioresal) 10 MG tabletIndicati ons:Musculoske letal pain Take one tablet TID PRN 30 tablet 025 Active acetaminophen (Tylenol) 325 MG tabletIndicati ons:Musculoske letal pain Take 1 tablet (325 mg) by mouth every 4 (four) hours if needed for mild pain. 30 tablet 1 025 Active Novofine Pen Needle 32G X 6 MM miscIndication s:Type 2 diabetes mellitus without complication, with long-term current use of insulin ([facility]) USE 5 TO 6 TIMES DAILY DIRECTED 200 each 2 Active Lantus SoloStar 100 UNIT/ML penIndications :Type 2 diabetes mellitus with hyperglycemia, with long-term current use of insulin ([facility]) INJECT 20 UNITS SUBCUTANEOUSLY TWICE DAILY 15 mL 1 025 Active TRUEplus Lancets 33G miscIndication s:Type 2 diabetes mellitus without complication, with long-term current use of insulin (CMS/HCC) TEST BLOOD SUGAR FOUR TIMES DAILY 100 each 1 025 Active TRUEplus Lancets 33G miscIndication s:Type 2 diabetes mellitus without complication, with long-term current use of insulin ([facility]) TEST BLOOD SUGAR FOUR TIMES DAILY 100 each 11 024 2024 Discontinued(R eorder (will not trigger notification to Pharmacy)) insulin glargine (Lantus SoloStar) 100 UNIT/ML penIndications :Type 2 diabetes mellitus with hyperglycemia, with long-term current use of insulin ([facility]) Inject 20 Units under the skin 2 times daily. 15 mL 3 024 2024 Discontinued insulin pen needle (Novofine Pen Needle) 32G x 6 mm miscIndication s:Type 2 diabetes mellitus without complication, with long-term current use of insulin ([facility]) USE 5 TO 6 TIMES DAILY DIRECTED 150 each 1 025 2024 Discontinued Active Problems Patient Care Coordination No te Formatting of this note migh t be different from the original. [id number] Abdifatah Muñoz C3/CM Sandy Gimenez RN Problem Noted Date Diagnosed Date Left flank pain 11/10/2024 Assessment & Plan (11/12/2024 7:16 PM EST): Ddx includes msk pain, no hematuria, ultrasound ordered due to hx of renal calculi Peripheral vascular disease 11/10/2024 Coronary artery disease involving bad river band heart 0 11/10/2024 Pain of right hip [...] sxs. Referral placed for OP therapy with [facility] in [place]. Provided patient referral letter and agency contact [...] sxs. Provided information for [facility] in [place] for sooner appointments. Assessment & Plan (07/24/2024 7:13 PM EDT): Pt with significant anxiety, related to home life and serious illnesses, [facility] into meet with patient Panic attacks [...] sxs. Provided information for [facility] in [place] for sooner appointments. Amputation of right lower [...] pending , advised him to f/u with healthcare science specialist Pelvic lymphadenopathy 05/23/2024 Overview (05/23/2024): CT scan abd/pelvis at [facility] on 02/20/24: IMPRESSION: 1. Pelvic lymphadenopathy. [...] does not receive his care in the [facility] system, and there are limited records, including labs, available for review in Care Everywhere. Hgb over the past 2 weeks [employer] has ranged from 6.7 to 8.2. Patient has an unknown baseline H&H. Patient underwent TMA of the right foot on February 06, [address] Escalante. This was performed at [facility], and patient was discharged to rehab at [facility]. Starting on 03/07, patient with increased bleeding from amputation site. He presented to the ED on this date, was seen by podiatry, and given lack of active bleeding and stable H&H, he was DC'd back to rehab. Came back 03/12 with bleeding, however this stopped with elevation and he was again discharged back to [place], only to return on 03/13. He was [...] -Close follow up with Dr. Escalante in [place]. Appointment scheduled for 04/04/2024 at 2:30 PM [...] above in osteomyelitis problem Assessment & Plan (01/11/2025 6:58 PM EDT): Referral to cardiology Echo ordered Assessment & Plan (07/24/2024 7:10 PM EDT): [...] 06, 2024. This surgery was performed at [facility]. Patient was ultimately discharged to [facility] for ongoing rehab, and was continued [...] and low-dose ISS nightly Assessment & Plan (01/11/2025 6:57 PM EDT): Improving glucose control, continue current regimen Assessment & Plan (09/29/2024 5:27 PM EST): [...] Encounters Date Type Department Care Team Description 01/25/2025 Refill [facility] [address] [place] [phone] Vicenta Nielsen NP Type 2 diabetes mellitus with hyperglycemia, with long-term current use of insulin ([facility]); Type 2 diabetes mellitus without complication, with long-term current use of insulin ([facility]) 01/23/2025 Telephone [facility] [address] [place] [phone] Vicenta Nielsen NP Medication Question 01/23/2025 Refill [facility] [address] [place] [phone] Kimberly Bloom NP Type 2 diabetes mellitus without complication, with long-term current use of insulin ([facility]) 01/18/2025 Patient Outreach [facility] [address] [place] [phone] Vicenta Nielsen NP Care Coordination ([facility] outreach for SDOH PT-1 update-referral completed /) 01/18/2025 Telephone [facility] [address] [place] [phone] Vicenta Nielsen NP PT1 01/09/2025 Telephone [facility] [address] [place] [phone] Jing Yi RN 01/08/2025 2:30 PM EDT Office Visit [address] [address] Vicenta Nielsen NP Type 2 diabetes mellitus with hyperglycemia, with long-term current use of insulin ([facility]) (Primary Dx); Murmur, heart; Dietary counseling; Exercise counseling; Sepsis due to methicillin resistant Staphylococcus aureus (MRSA) with acute organ dysfunction, unspecified organ dysfunction type, unspecified whether septic shock present ([facility]); History of endocarditis 01/08/2025 Travel 01/02/[address] [phone] Vicenta Nielsen NP [employer] (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, 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), 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, In persona evaluation.) 12/29/[address] [address] Ronna Juarez MA Chart Prep 12/22/2024 Patient Outreach [address] [phone] Vicenta Nielsen NP Care Coordination ([facility] outreach for SDOH PT-1 needs-referral completed /) 12/22/[address] [phone] Vicenta Nielsen NP PT1 12/20/2024 11:20 AM EDT Office Visit [facility] [address] [place] [phone] Kimberly Bloom NP Abdominal pain, unspecified abdominal location (Primary Dx); Elevated glucose; Musculoskeletal pain; Murmur, heart; Cellulitis of left lower extremity 12/20/2024 Travel 12/20/[address] [phone] Vicenta Nielsen NP Durable Medical Equipment (Wheelchair modifications / [employer]) 12/19/2024 Refill [facility] [address] [place], [place] [phone] Vicenta Nielsen NP Type 2 diabetes mellitus without complication, with long-term current use of insulin ([facility]) 12/15/2024 Population Health Risk Score [facility] () Department [address] [place] [phone] Provider, Population Health Generic 12/15/2024 Orders Only GENERIC EXTERNAL DATA DEPARTMENT Provider, Generic External Data 12/14/2024 Patient Outreach [facility] [address] [place] [phone] Vicenta Nielsen NP Care Coordination ([facility] outreach for SDOH [id number] completed /) 12/14/[address] [address] Vicenta Nielsen NP Nurse Triage 12/08/[address] [phone] Ronna Juarez MA Results 12/07/2024 Refill [facility] [address] [place] [address] Vicenta Nielsen NP 12/04/[address] [address] Vicenta Nielsen NP Durable Medical Equipment 12/01/2024 Patient Outreach [facility] [address] [place] [phone] Vicenta Nielsen NP Care Coordination ([facility] outreach for SDOH [id number] completed /) 12/01/[address] [address] Vicenta Nielsen NP Type 2 diabetes mellitus without complication, with long-term current use of insulin ([facility]) 12/01/[address] [address] Vicenta Nielsen NP PT-1 11/15/[address] [address] Vicenta Nielsen NP Referral 11/10/2024 1:45 PM EST Office Visit [address] [phone] Vicenta Nielsen NP Hypertension, unspecified type (Primary Dx); Type 2 diabetes mellitus with hyperglycemia, with long-term current use of insulin ([facility]); Left flank pain; Below-knee amputation of right lower extremity, initial encounter ([facility]); Peripheral vascular disease ([facility]); Coronary artery disease involving bad river band heart with other form of angina pectoris, unspecified vessel or lesion type ([facility]); Iron deficiency anemia due to chronic blood loss; Palpitations; Essential (primary) hypertension; Type 2 diabetes mellitus with other circulatory complication, with long-term current use of insulin ([facility]); History of opioid abuse ([facility]) 10/31/2024 Patient Outreach [facility] [address] [place] [phone] Vicenta Nielsen NP Care Coordination ([facility] outreach for SDOH PT-1 and food needs-referral completed /) 10/31/2024 Telephone [facility] [address] [place] [phone] Ronna Juarez MA Chart Prep 10/31/[address] [address] Vicenta iNelsen NP Lab Orders 10/31/[address] [address] Vicenta Nielsen NP PT-1 10/31/[address] [address] Vicenta Nielsen NP Referral from Last 3 Months Immunizations Name Administration [...] Smoking Tobacco: Former Cigarettes Passive Smoke Exposure: Past Smokeless Tobacco: Never Tobacco Cessation:Counseling Given: Not Answered Alcohol Use Standard Drinks/Week Comments Never 0 (1 standard drink = 0.6 oz pur e alcohol) Depression Answer Date Recorded Patient Health Questionnaire-9 Score 7 07/25/2024 Patient Health Questionnaire-9 Score 7 07/25/2024 Last PHQ-9: Questionnaire Data Not on file 1 Housing Stability Answer Date Recorded What is your housing situation today? I have anne-marie miller 01/08/[address] you li ve. Do you have problems with any of the following? None of the above 01/08/2025 Food Insecurity Answer Date Recorded Within the past 12 months, y ou worried that your food would run out before you got money to buy more: Never True 01/08/2025 Within the past 12 months,th e food you bought just didn't last and you didn't have enough money to get more: Never True 04/2025 Transportation Answer Date Recorded In the past 12 months, has l ack of transportation kept you from medical appts, meetings, work or from getting things needed for daily living? No 01/08/2025 Utilities Answer Date Recorded In the past 12 months, has t he electric, gas, oil or water company threatened to shut off services in your home? No 01/08/2025 Depression Answer Date Recorded Patient Health Questionnaire-2 Score 3 07/25/2024 Internet Access Answer Date Recorded Internet Access Q1 Yes 01/08/2025 Internet Access Q2 Not on file 01/08/2025 Sex and Gender Information Value Date Recorded Sex Assigned at Male 08/03/2022 10:17 AM EDT Legal Sex Male 10:17 AM EDT Gender Identity Male 08/03/2022 10:17 AM EDT Sexual Orientation Straight 08/03/2022 10 :17 AM EDT Last Filed Vital Signs Vital Sign Reading Time Taken Comments Blood Pressure 130/69 01/08/2025 2:41 PM EDT Pulse 80 01/08/2025 2:41 PM EDT Temperature 36.6 ??C (97.8 ??F) 01/08/2025 2:41 PM ED T Respiratory Rate 16 01/08/2025 2:41 PM EDT Oxygen Saturation 98% 12/20/2024 12:06 PM EDT Inhaled Oxygen Concentration - - Weight 120 kg (265 lb) 01/08/2025 2:41 PM EDT Height 175.3 cm (5' 9 ) 01/08/2025 2:41 PM EDT Body Mass Index 39.13 01/08/2025 2:41 PM EDT Plan of Treatment Upcoming Encounters Date Type Department Care Team (Late st Contact Info) Description 02/09/2025 11:15 AM EDT Office Visit [facility] [address] [place] [address] Vicenta Nielsen NP [address] [place] [address] Health Maintenance Due Date Last Done Comments [...] 2024 , 07/20/2022, 07/04/2019, Additional history exists Diabetes: Hemoglobin A1C 02/07/2025 025, 05/23/2024, 03/31/2024, Additional history exists Diabetes: Urine Protein Screening 06/02/2025 06/02/2024, 12/31/2022, 11/28/2020 Lipid Panel 06/02/2025 06/02/2024, 12/31/2022 Depression Screening 07/25/2025 07/25/2024, 07/25/20 24 Alcohol/Substance Use Screening 09/29/2025 09/29/2024 SDOH Screening 01/08/2026 01/08/2025 Tobacco Screening 01/08/2026 01/08/2025 DTaP/Tdap/Td Vaccines (2 - Td or Tdap) [...] Procedure Name Priority Date/Time Associated Diagnosis Comments POCT GLUCOSE Routine 01/08/2025 2:44 PM EDT Type 2 diabetes mellitus with hyperglycemia, with long-term current use of insulin (CMS/HCC) POCT GLUCOSE Routine 12/20/2024 12:08 PM EDT Elevated glucose GLUCOSE, WHOLE BLOOD Routine 12/15/2024 10:10 AM EDT US RENAL BI Routine 12/06/2024 11:46 PM EST Left flank pain TSH W/REFLEX TO FT4 Routine 11/15/2024 1 1:01 AM EST Palpitations IRON AND TOTAL IRON BINDING CAPACITY Routine 11/15/2024 11:01 AM EST Hypertension, unspecified type Coronary artery disease involving bad river band heart with other form of angina pectoris, unspecified vessel or lesion type (CMS/HCC) Iron deficiency anemia due to chronic blood loss CBC WITH AUTO DIFFERENTIAL Routine 11/15/2024 11:01 AM EST Type 2 diabetes mellitus with hyperglycemia, with long-term current use of insulin (CMS/HCC) Coronary artery disease involving bad river band heart with other form of angina pectoris, unspecified vessel or lesion type (CMS/HCC) COMPREHENSIVE METABOLIC PANEL Routine 11/15/2024 11:01 AM EST Type 2 diabetes mellitus with hyperglycemia, with long-term current use of insulin ([facility]) Coronary artery disease involving bad river band heart with other form of angina pectoris, unspecified vessel or lesion type ([facility]) POCT GLYCATED HEMOGLOBIN, TOTAL Routine 11/10/2024 2:12 PM EST Type 2 diabetes mellitus with hyperglycemia, with long-term current use of insulin ([facility]) POCT GLUCOSE Routine 11/10/2024 2:10 PM EST Type 2 diabetes mellitus with hyperglycemia, with long-term current use of insulin ([facility]) LIPID PANEL, STANDARD Routine 06/02/2024 11:59 AM EDT ALBUMIN, RANDOM URINE W/CREATININE Routine 06/02/2024 11:49 AM EDT from Last 3 Months or Most Recently Relevant to Health Maintenance Results * POCT Glucose (01/08/2025 2:44 PM EDT) Only the most recent of3 resultswithin the time period is included. Glucose Blood, POC 173 60 - 200 mg/dL QC Media Lot # [id number] Lot# Expiration Date Blood Capillary blood specimen / Unknown 01/08/2025 2:44 PM EDT us Vicenta Nielsen NP POINT OF CARE TEST ENTER/EDIT OR DERABLES Final Result * (ABNORMAL) Glucose, Whole Blood (12/15/2024 10:10 AM EDT) Glucose, Whole Blood 145(H) 60 - 115 mg/dL [facility] Comment:METER #: [id number] 5Testing performed in the Endocrinology Department [address] , [address], [facility]. 12/15/2024 10:1 0 AM EDT 12/15/2024 10:14 AM EDT us Generic External Data Provider LAB BLOOD ORDERAB LES Final Result [facility] [address] [place] [address] [phone] * US RENAL BI (12/06/2024 11:46 PM EST) Anatomical Region Laterality Modality Abdomen Ultrasound 12/06/2024 11:4 6 PM EST Narrative 12/06/2024 11:49 PM EST ? [facility] ?[address] ?[place] [address] ? Ultrasound Report ? Signed ? Patient: Bam Wise ?MR#: [id number] ?? 0 ? : 1965 ?Acct:[id number] ? Age/Sex: 59 / M ?ADM Date: 12/05/24 ? Loc: HO.US ? Attending Dr: Vicenta Nielsen [employer]INTED [employer]ARD PCB DESIGNER ? Ordering Physician: Vicenta Nielsen NP ?? Date of Service: 12/05/24 ?? Procedure(s): US renal BI ?? Accession Number(s): [id number] ? cc: Vicenta Nielsen NP ? CLINICAL HISTORY: hx of stones, left [...] MD in OV> ? 12/06/248 ? DD/ ? TD/TT: 12/06/246 ? Flight Test Mechanic: ? Procedure Note Dorothy Lr - 12/06/[address] [address] Ultrasound Report Signed Patient: Delilah Wise#: [id number] 0 : 1965Acct:[id number] Age/Sex: 59 / MADM Date: 12/05/24 Loc: HO.US Attending Dr: Vicenta Nielsen NP Ordering Physician: Vicenta Nielsen NP Date of Service: 12/05/24 Procedure(s): US renal BI Accession Number(s): [id number] cc: Vicenta Nielsen NP CLINICAL HISTORY: hx [...] in OV> 12/06/242347 DD/ 45 TD/TT: 12/06/242345 Flight Test Mechanic: Vicenta Nielsen NP IMG US PROCEDURES Edited Result - Final * TSH W/Reflex to FT4 (11/15/2024 11:01 AM EST) TSH reflex Free T4 1.53 0.32 - 4.0 uIU/mL [facility] Blood Venous blood specimen / Unknown 11/15/2024 11:01 AM EST 11/15/2024 11:10 AM EST Vicenta Nielsen [employer] DESIGNER LAB BLOOD ORDERABLES Final Resul t [facility] [address] [place] [phone] * (ABNORMAL) CBC auto differential (11/15/2024 11:01 AM EST) White Blood Count 8.6 4.8 - 10.8 X10*3/uL [facility] Red Blood Count 3.97(L) 4.60 - 5.80 X10*6/uL [facility] Hemoglobin 11.1(L) 14.0 - 18.0 g/dl [facility] Hematocrit 33.5(L) 42.0 - 52.0 % [facility] Mean Corpuscular Volume 84.4 80.0 - 98.0 fL [facility] Mean Corpuscular Hemoglobin 28.0 27.0 - 33.0 pg [facility] Mean Corpuscular HGB Conc 33.1 31.0 - 36.0 g/dl [facility] Red Cell Distribution Width 13.7 11.0 - 16.0 % [facility] Platelet Count 239 160 - 400 X10*3/uL [facility] Mean Platelet Volume 10.7 9.4 - 12.4 fL [facility] Neutrophils Percent Auto 73.0 45 - 73 % [facility] Imm Gran Pct Auto 0.3 0.0 - 0.4 % [facility] Lymphocytes Percent Auto 15.2(L) 20 - 40 % [facility] Monocytes Percent Auto 9.0 2 - 11 % [facility] Eosinophils Percent Auto 1.7 0 - 4 % [facility] Basophils Percent Auto 0.8 0 - 2 % [facility] NRBC Pct Auto 0.0 0.0 - 0.2 /100WBC [facility] Neutrophils Absolute Auto 6.3 2.0 - 8.3 x10*3/uL [facility] Imm Gran Abs Auto 0.03 0.00 - 0.03 X10*3/uL [facility] Lymphocytes Absolute Auto 1.3 1.2 - 4.9 X10*3/uL [facility] Monocytes Absolute Auto 0.8 0.1 - 1.2 X10*3/uL [facility] Eosinophils Absolute Auto 0.2 0.0 - 0.4 X10*3/uL [facility] Basophils Absolute Auto 0.1 0.0 - 0.2 X10*3/uL [facility] NRBC Abs Auto 0.000 0.0 - 0.012 X10*3/uL [facility] Blood Venous blood specimen / Unknown 11/15/2024 11:01 AM EST 11/15/2024 11:10 AM EST us Vicenta Nielsen [employer] DESIGNER LAB BLOOD ORDERABLES Final Resul t Performing Organization Address [facility] Co pa Phone Number [facility] [address] [place] [phone] * (ABNORMAL) Iron And Total Iron Binding Capacity (11/15/2024 11:01 AM EST) Pathologist [facility] Iron 43(L) 45 - 160 mcg/dL [facility] Total Iron Binding Capacity 316 228 - 428 mcg/dL [facility] Percent Iron Saturation 14(L) 15 - 50 % [facility] Unsaturated Iron Binding 273 ug/dL [facility] Blood Venous blood specimen / Unknown 11/15/2024 11:01 AM EST 11/15/2024 11:10 AM EST us Vicenta Nielsen [employer] DESIGNER LAB BLOOD ORDERABLES Final Resul t Performing Organization Address [facility] Phone Number [facility] [address] [place] [phone] * (ABNORMAL) Comprehensive Metabolic Panel (11/15/2024 11:01 AM EST) Sodium 135 135 - 145 mmol/L [facility] Potassium 5.0 3.3 - 5.1 mmol/L [facility] Chloride 103 96 - 108 mmol/L [facility] Carbon Dioxide 27 22 - 29 mmol/L [facility] Anion Gap 10(L) 12 - 20 [facility] Urea Nitrogen (BUN) 25(H) 9 - 16 mg/dL [facility] Creatinine, Serum 0.95 0.5 - 1.4 mg/dL [facility] Estimated Glomerular Filt Rate >60 [facility] Comment:Chronic Kidney Disea se: Estimated GFR < 60 mL/min/1.73y2Osblyi Kidney Disease: Estimated GFR < 15 mL/min/1.73m2 Glucose 185(H) 60 - 115 mg/dL [facility] Calcium 8.9 8.4 - 10.2 mg/dL [facility] Bilirubin, Total 0.3 0.0 - 1.0 mg/dL [facility] Aspartate Amino Transferase 14 5 - 37 U/L [facility] Alanine Aminotransferase 10 0 - 40 U/L [facility] Total Protein 7.9 6.5 - 8.0 g/dL [facility] Albumin Level 4.0 3.5 - 5.0 g/dL [facility] Alkaline Phosphatase 93 39 - 117 U/L [facility] Blood Venous blood specimen / Unknown 11/15/2024 11:01 AM EST 11/15/2024 11:10 AM EST Vicenta Nielsen PRINTED CIRCUIT BOARD PCB DESIGNER LAB BLOOD ORDERABLES Final Resul t [facility] [address] [place] [phone] * (ABNORMAL) POCT HGB A1C (11/10/2024 2:12 PM EST) Hemoglobin A1C 7.0(A) 4.0 - 6.0 % QC Media Lot # [id number] Lot# Expiration Date Blood 11/10/2024 2:12 PM EST Vicenta Nielsen PRINTED CIRCUIT BOARD PCB DESIGNER POINT OF CARE TEST ENTER/EDIT OR DERABLES Final Result * (ABNORMAL) Lipid Panel, Standard (06/02/2024 11:59 AM EDT) Triglycerides 61 <150 mg/dL [facility] Comment:Desirable Triglyceri de: less than 150 mg/dLBorderline High Triglyceride 150-199 mg/dLHigh Triglyceride: 200-499 mg/dLVery High Triglyceride: greater than or equal to 5OO mg/dL Cholesterol 85 <200 mg/dL [facility] Comment:Desirable Cholestero l: less than 200 mg/dLBorderline High Cholesterol: 200-239 mg/dLHigh Cholesterol: greater than 239 mg/dL LDL Cholesterol Calculated 43 <100 mg/dL [facility] Comment:Desirable LDL: less than 100 mg/dLNear Optimal/Above Optimal LDL: 110- 129 mg/dLBorderline High LDL: 130-159 mg/dLHigh LDL: 160-189 mg/dLVery High LDL: greater than or equal to 190 mg/dL HDL Cholesterol 30(L) >40 mg/dL [facility] Comment:Desirable HDL: great er than 40 mg/dL Note: This HDL assay may give artificially low results in patients with liver disease. 06/02/2024 11:5 9 AM EDT 06/02/2024 11:59 AM EDT us Generic External Data Provider LAB BLOOD ORDERAB LES Final Result Performing Organization Address [facility] Co de Phone Number [facility] [address] [place] [phone] * Albumin, Random Urine W/Creatinine (06/02/2024 11:49 AM EDT) Creatinine, Urine 75.26 mg/dL [facility] Microalbumin Urine 10.0 mg/L [facility] Microalbum Creatinine Ratio Ur 13.2 <30 ug/mg cr [facility] Comment:Albumin/Creatinine R atio Reference Ranges: Normal: < 30 ug/mg creatinine Microalbuminuria: 30 - 300 ug/mg creatinineClinical Albuminuria: > 300 ug/mg creatinine 06/02/2024 11:4 9 AM EDT 06/02/2024 1:11 PM EDT us Generic External Data Provider LAB URINE ORDERAB LES Final Result Performing Organization Address [facility]/ZIP Co de Phone Number [facility] [address] [place] [phone] from Last 3 Months or Most Recently Relevant to Health Maintenance Insurance [facility] C3 Care Teams Digital Archivist Relationship Specialty Start Date End Date Vicenta Nielsen NP [address] [place] [address] PCP - General Family Medicine 12/22/23 [employer] 04/29/24 abigail mcneill Designer/WriterVeterinary Assistant Technician 10/18/24
--- OUTSIDE RECORDS SUMMARY | 2025-01-26 14:01 | XMS_ITS | Encounter Summary ---
Author Organization [employer] Address [address] [place] [address] Care Team Providers Care Dental Intern Name Role Phone Vicenta Nielsen NP Primary Care Provider [phone] Reason for Visit * Reason Onset Date Comments Lab Orders 10/31/2024 Encounter Details Date Type Department Care Team ([facility] st Contact Info) Description 10/31/2024 Telephone [facility] [address] [place], [place] [phone] Vicenta Nielsen NP [address] [place] [address] Lab Orders Social History Tobacco Use Types [...] [facility]. Pt also c/o left sided internal [...] would like to have labs done at [facility] when he goes so that he can [...] Description 02/09/2025 11:15 AM EDT Office Visit [facility] [address] [place] [address] Vicenta Nielsen NP [address] [place] [address] documented as of this encounter Visit Diagnoses Not on filedocumented in this encounter Additional Health Concerns Assessment Noted Time PHQ-9 Depression Total Score: 7 07/25/20 24 9:24 AM EDT documented as of this encounter Care Teams Dental Intern Relationship Specialty Start Date End Date Vicenta Nielsen NP [address] [place] [address] PCP - General Family Medicine 12/22/23 [employer] 04/29/24 abigail mcneill Invoice ClerkForge Helper 10/18/24 documented as of this encounter
--- OUTSIDE RECORDS SUMMARY | 2025-01-26 14:01 | XMS_ITS | Encounter Summary ---
Author Organization [facility] [address] Care Team Providers Care Professional Bondsman Name Role Phone Vicenta Nielsen RAZ Primary Care Provider Encounter Details Date Type Department Care Team (Late st Contact Info) Description 08/21/2024 Lab Requisition [facility] [address] [facility] [place] [address] Steven Naik MD [address] [place] [address] Cellulitis, unspecified Social History Tobacco Use Types [...] CBC auto differential (08/21/2024 12:00 AM EST) [facility] WBC 6.4 4.8 - 10.8 K/mcL LAB HEMETOLOGY METHOD 08/21/2024 8:22 PM [facility] RBC 3.90(L) 4.50 - 5.50 M/mcL LAB HEMETOLOGY METHOD 08/21/2024 8:22 PM [facility] Hemoglobin 10.3(L) 13.5 - 17.5 g/dL LAB HEMETOLOGY METHOD 08/21/2024 8:22 PM [facility] Hematocrit 32.4(L) 42.0 - 54.0 % LAB HEMETOLOGY METHOD 08/21/2024 8:22 PM [facility] MCV 83.7 79.0 - 98.0 FL LAB HEMETOLOGY METHOD 08/21/2024 8:22 PM [facility] MCH 26.6(L) 27.0 - 32.0 pcg LAB HEMETOLOGY METHOD 08/21/2024 8:22 PM [facility] MCHC 31.8(L) 32.0 - 37.0 g/dL LAB HEMETOLOGY METHOD 08/21/2024 8:22 PM [facility] RDW 14.9 11.0 - 15.0 % LAB HEMETOLOGY METHOD 08/21/2024 8:22 PM [facility] Platelets 208 130 - 400 K/mcL LAB HEMETOLOGY METHOD 08/21/2024 8:22 PM [facility] MPV 11.8(H) 7.0 - 11.0 FL LAB HEMETOLOGY METHOD 08/21/2024 8:22 PM [facility] NRBC 0.0 <1.0 % LAB HEMETOLOGY METHOD 08/21/2024 8:22 PM [facility] NRBC Absolute 0.00 <0.10 K/mcL LAB HEMETOLOGY METHOD 08/21/2024 8:22 PM [facility] Neutrophils Relative 66.3 % LAB HEMETOLOGY METHOD 08/21/2024 8:22 PM [facility] Lymphocytes Relative 21.1 % LAB HEMETOLOGY METHOD 08/21/2024 8:22 PM [facility] Monocytes Relative 9.8 % LAB HEMETOLOGY METHOD 08/21/2024 8:22 PM [facility] Eosinophils Relative 2.0 % LAB HEMETOLOGY METHOD 08/21/2024 8:22 PM [facility] Basophils Relative 0.5 % LAB HEMETOLOGY METHOD 08/21/2024 8:22 PM [facility] Immature Granulocytes Relative 0.3 % LAB HEMETOLOGY METHOD 08/21/2024 8:22 PM [facility] Neutrophils Absolute 4.24 1.50 - 7.00 K/mcL LAB HEMETOLOGY METHOD 08/21/2024 8:22 PM [facility] Lymphocytes Absolute 1.35 1.00 - 5.00 K/mcL LAB HEMETOLOGY METHOD 08/21/2024 8:22 PM [facility] Monocytes Absolute 0.63 0.20 - 1.00 K/mcL LAB HEMETOLOGY METHOD 08/21/2024 8:22 PM [facility] Eosinophils Absolute 0.13 0.00 - 0.50 K/mcL LAB HEMETOLOGY METHOD 08/21/2024 8:22 PM [facility] Basophils Absolute 0.03 0.00 - 0.20 K/mcL LAB HEMETOLOGY METHOD 08/21/2024 8:22 PM [facility] Immature Granulocytes Absolute 0.02 0.00 - 0.03 K/mcL LAB HEMETOLOGY METHOD 08/21/2024 8:22 PM EST [facility] Blood Venous blood specimen / Unknown 08/21/2024 08/21/2024 8:09 PM EST Steven Naik MD LAB BLOOD ORDERABLES Final Re sult Performing Organization Address City/[facility]/ZIP Co de Phone Number [facility] [address] [place] [address], [place] [phone] * Creatine kinase (08/21/2024 12:00 AM EST) Pathologist [facility] Total CK 54 22 - 269 unit/L LAB CHEMISTRY METHOD 08/21/2024 8:29 PM [facility] Blood Venous blood specimen / Unknown 08/21/2024 08/21/2024 8:09 PM EST Steven Naik MD LAB BLOOD ORDERABLES Final Re sult [facility] [address] [place] [address], [place] [phone] * (ABNORMAL) Comprehensive metabolic panel (08/21/2024 12:00 AM EST) Pathologist [facility] Sodium 138 133 - 145 mmol/L LAB CHEMISTRY METHOD 08/21/2024 8:29 PM [facility] Potassium 4.5 3.5 - 5.5 mmol/L LAB CHEMISTRY METHOD 08/21/2024 8:29 PM [facility] Chloride 105 96 - 110 mmol/L LAB CHEMISTRY METHOD 08/21/2024 8:29 PM [facility] CO2 28 21 - 32 mmol/L LAB CHEMISTRY METHOD 08/21/2024 8:29 PM [facility] Anion Gap 5 3 - 11 LAB CHEMISTRY METHOD 08/21/2024 8:29 PM [facility] Glucose 130(H) 70 - 100 mg/dL LAB CHEMISTRY METHOD 08/21/2024 8:29 PM [facility] BUN 28(H) 5 - 25 mg/dL LAB CHEMISTRY METHOD 08/21/2024 8:29 PM [facility] Creatinine 1.02 0.70 - 1.30 mg/dL LAB CHEMISTRY METHOD 08/21/2024 8:29 PM [facility] eGFR 85 >=60 mL/min/1. 73m2 LAB CHEMISTRY METHOD 08/21/2024 8:29 PM [facility] Comment:Calculation based on the??Chronic Kidney Disease Epidemiology Collaboration (CKD-EPI) equation refit??without adjustment for race. BUN/Creatinine Ratio 27.5 LAB CHEMISTRY METHOD 08/21/2024 8:29 PM [facility] Calcium 9.4 8.5 - 10.5 mg/dL LAB CHEMISTRY METHOD 08/21/2024 8:29 PM [facility] AST (SGOT) 15 10 - 42 unit/L LAB CHEMISTRY METHOD 08/21/2024 8:29 PM [facility] ALT (SGPT) 19 10 - 60 unit/L LAB CHEMISTRY METHOD 08/21/2024 8:29 PM [facility] Alkaline Phosphatase 90 42 - 121 unit/L LAB CHEMISTRY METHOD 08/21/2024 8:29 PM [facility] Total Protein 7.6 6.0 - 8.0 g/dL LAB CHEMISTRY METHOD 08/21/2024 8:29 PM [facility] Albumin 3.9 3.2 - 5.0 g/dL LAB CHEMISTRY METHOD 08/21/2024 8:29 PM [facility] Total Bilirubin 0.3 0.0 - 1.4 mg/dL LAB CHEMISTRY METHOD 08/21/2024 8:29 PM [facility] Blood Venous blood specimen / Unknown 08/21/2024 08/21/2024 8:09 PM EST us Stevencarlos Naik MD LAB BLOOD ORDERABLES Final Re sult [facility] [address] [place] [address], documented in this encounter Visit Diagnoses Diagnosis Cellulitis, unspecified documented in this encounter Care Teams Professional Bondsman Relationship Specialty Start Date End Date Vicenta Nielsen FNP [address] [place] [phone] PCP - General 05/26/24 documented as of this encounter
--- OUTSIDE RECORDS SUMMARY | 2025-01-26 14:01 | XMS_ITS | Encounter Summary ---
Author Organization [employer] Address [address] [place] [address] 7 [place] [address] Care Team Providers Care Bitumen Plant Operator Name Role Phone Valery Berrios MD Primary Care Provider [phone] Vicenta Nielsen NP Primary Care Provider [phone] Reason for Visit * Reason Onset Date Comments PT1 07/21/2023 Encounter Details Date Type Department Care Team ([facility] st Contact Info) Description 07/21/2023 Telephone [facility] CHC MED & PEDS [address] [place] [address] Valery Berrios MD [address] [place], [place] Christian[place] PT1 Social History Tobacco Use Types Packs/Day Years Used Date Smoking Tobacco: Every Day Cigarettes Smokeless Tobacco: Never Depression Answer Date Recorded Patient Health Questionnaire-9 Score 0 10/20/2022 Housing Stability Answer Date Recorded What is your housing situation today? I do not have housing (Staying with others, in a hotel, in a custodial, living outside on the street, on a [...] Gabby Muñoz - 07/21/2023 2:49 PM EDT Tc richy henrybie with ICP requesting PT1 for pt Date: 08/11 Time: 3:45 pm Visits: n/a Address: [address] [place] [address] Facility: [facility], Dr. Kimmy Vuong Wheel Chair: n/a Pump Runner Needed: no Pick-up location confirmed: [address] [place] [address] documented in this encounter Plan of Treatment Upcoming Encounters Date Type Department Care Team (Late st Contact Info) Description 02/09/2025 11:15 AM EDT Office Visit [facility] MEDICINE [address] [place] [address] Vicenta Nielsen NP [address] [place] [address] documented as of this encounter Visit Diagnoses Not on filedocumented in this encounter Additional Health Concerns Assessment Noted Time PHQ-9 Depression Total Score: 0 10/20/19 23 2:41 PM EST documented as of this encounter Care Teams Bitumen Plant Operator Relationship Specialty Start Date End Date Valery Berrios MD [address] [place] [address] PCP - General Internal Medicine 12/01/18 12/21/23 Vicenta Nielsen NP [address] [place] [address] PCP - General Family Medicine 12/22/23 [employer] 04/29/24 abigail mcneill Job AnalystCatheterization Laboratory Technician 10/18/24 documented as of this encounter
--- OUTSIDE RECORDS SUMMARY | 2025-01-26 14:01 | XMS_ITS | Encounter Summary ---
Author Organization [employer] Address [address] [facility] 7 [place] [address] Care Team Providers Care Core Feeder Name Role Phone Valery Berrios MD Primary Care Provider [phone] Vicenta Nielsen NP Primary Care Provider [phone] Reason for Visit * Reason Onset Date Comments Call Back Request 11/17/2023 Encounter Details Date Type Department Care Team (Late st Contact Info) Description 11/17/2023 Telephone [facility] MEDICINE [address] [place] [address] Valery Berrios MD [address] [facility] [place] [phone] Call Back Request Social History Tobacco Use [...] on his potassium and iron. According to [facility] pharmacy, they do not have this on file. Dr. Berrios, is pt to be taking these 2 medications? If so he is in need of both sent to [facility] pharm. Pt also states he stopped taking the amlodipine because it made his legs swell, please DC in chart, he has been having high BP readings and will need something in replace of the amlodipine. Pt agrees to appt with PCP 11.23.23. Pt also states he moved to [place] and would like to transfer his care there. TP request sent on 10.14.23. Will wait for pt appt 11.23.23 to see what current PCP requests for f/u and go from there. * Telephone Encounter - Elmer Sykes - 11/17/2023 3:31 PM EST Tc from pt requesting call back from nurses to go over medication. Please contact pt at [phone]. documented in this encounter Plan of Treatment Upcoming Encounters Date Type Department Care Team (Late st Contact Info) Description 02/09/2025 11:15 AM EDT Office Visit [facility] [address] [place] [address] Vicenta Nielsen NP [address] [place] [address] documented as of this encounter Visit Diagnoses Not on filedocumented in this encounter Additional Health Concerns Assessment Noted Time PHQ-9 Depression Total Score: 0 10/20/19 23 2:41 PM EST documented as of this encounter Care Teams Core Feeder Relationship Specialty Start Date End Date Valery Berrios MD [address] [place] [address] PCP - General Internal Medicine 12/01/18 12/21/23 Vicenta Nielsen NP [address] [place] [address] PCP - General Family Medicine 12/22/23 [facility] 04/29/24 abigail mcneill Geodetic EngineerSr. Director 10/18/24 documented as of this encounter
--- OUTSIDE RECORDS SUMMARY | 2025-01-26 14:01 | XMS_ITS | Clinical Summary ---
Author Organization [address] Address [address] [place] [phone] Phone Care Team Providers Care Diesel Locomotive Firer Name Role Phone Vicenta Nielsen RAZ Primary Care Provider [phone] Immunizations Name Administration Dates Next Due Pfizer SARS-CoV-2 COVID-19, mRNA, LNP-S, preservative free 03/04/2021,02/11/2021 Surgical History Surgery Date Site/Laterality Comments OTHER SURGICAL HISTORY PROCEDURE:KIDNEY STENT LEG AMPUTATION Right PROCEDURE:BELOW KNEE LEG AMPUTATION Medical History Medical History Date Comments Diabetes mellitus (CMS/HCC V24, CMS/HCC V28) DX:Diabetes mellitus (HCC) Hypertension DX:Hypertension Social History Tobacco [...] 5 season) 2024 03/04/2021, 02/11/2021 Influenza Vaccine (Season Ended) 2025 RSV Immunization Adult Patients (1 - 1-dose 75+ series) 2040 HIB [...] age to complete this topic Meningococcal B Vaccine Aged Out No l onger eligible based on patient's age to complete this topic RSV Immunization Patients Under 20 months Aged Out No longer eligible b ased on patient's age to complete this topic Varicella Vaccines Aged Out No longer eligible based on patient's age to complete this topic Insurance MEDICAID - [place] Advance Directives Documents on File Type Date Recorded Patient Peer Specialist Expl anation Health Care Decision (hx) 01/22/2023 [...] (hx) 01/22/2023 AD PURDY DIRECTIVE Care Teams Diesel Locomotive Firer Relationship Specialty Start Date End Date Vicenta Nielsen FNP [address] [place] [phone] PCP - General 05/26/24
--- OUTSIDE RECORDS SUMMARY | 2025-01-26 14:01 | XMS_ITS | Encounter Summary ---
Author Organization [email or web address] Address [address] [place] [address] 7 [place] [address] Care Team Providers Care Supervisor Transcribing Operators Name Role Phone Valery Berrios MD Primary Care Provider [phone] Vicenta Nielsen NP Primary Care Provider [phone] Reason for Visit * Reason Onset Date Comments PT1 07/16/2023 Encounter Details Date Type Department Care Team ([facility] st Contact Info) Description 07/16/2023 Telephone [facility] CHC MED & PEDS [address] [place] [address] Valery Berrios MD [address] [place], [place] PT1 Social History Tobacco Use Types Packs/Day Years Used Date Smoking Tobacco: Every Day Cigarettes Smokeless Tobacco: Never Depression Answer Date Recorded Patient Health Questionnaire-9 Score 0 10/20/2022 Housing Stability Answer Date Recorded What is your housing situation today? I do not have housing (Staying with others, in a hotel, in a mcfp, living outside on the street, on a [...] Date: n/a Time: n/a Visits: n/a Address: [address] [place] [address] Facility: [facility] Chair: n/a Resin Remover Needed: no documented in this encounter Plan of Treatment Upcoming Encounters Date Type Department Care Team (Late st Contact Info) Description 02/09/2025 11:15 AM EDT Office Visit [facility] MEDICINE [address] [place] [address] Vicenta Nielsen NP [address] [place] [address] documented as of this encounter Visit Diagnoses Not on filedocumented in this encounter Additional Health Concerns Assessment Noted Time PHQ-9 Depression Total Score: 0 10/20/19 23 2:41 PM EST documented as of this encounter Care Teams Supervisor Transcribing Operators Relationship Specialty Start Date End Date Valery Berrios MD [address] [place] [address] PCP - General Internal Medicine 12/01/18 12/21/23 Vicenta Nielsen NP [address] [place] [address] PCP - General Family Medicine 12/22/23 [employer] 04/29/24 abigail mcneill Side Seam TenderCoordinator Mining Products 10/18/24 documented as of this encounter
--- OUTSIDE RECORDS SUMMARY | 2025-01-26 14:01 | XMS_ITS | Encounter Summary ---
Author Organization [employer] Address [address] [place] [address] 7 [place] [address] Care Team Providers Care Furnace Operator Name Role Phone Vicenta Nielsen NP Primary Care Provider [phone] Reason for Visit * Reason Comments Med Refill Encounter Details Date Type Department Care Team ([facility] Contact Info) Description 02/04/2024 Refill [facility] CHC MED & PEDS [address] [place] [address] Valery Berrios MD [address] [place] [address] Type 2 diabetes mellitus without complication, with long-term current use of insulin ([facility]) Social History Tobacco Use Types [...] Description 02/09/2025 11:15 AM EDT Office Visit [facility] MEDICINE [address] [place] [address] Vicenta Nielsen NP [address] [place] [address] documented as of this encounter Visit Diagnoses Diagnosis Type 2 diabetes mellitus without complication, with long-term current use of insulin ([facility]) documented in this encounter Additional Health Concerns Assessment Noted Time PHQ-9 Depression Total Score: 5 01/04/20 10:57 AM EDT documented as of this encounter Care Teams Furnace Operator Relationship Specialty Start Date End Date Vicenta Nielsen NP [address] [place] [address] PCP - General Family Medicine 12/22/23 [address] 04/29/24 abigail mcneill [employer] SupervisorDietitian 10/18/24 documented as of this encounter
--- OUTSIDE RECORDS SUMMARY | 2025-01-26 14:01 | XMS_ITS | Encounter Summary ---
Author Organization [employer] Address [address] [place] [address] [place] [address] Care Team Providers Care Dormitory Counselor Name Role Phone Valery Berrios MD Primary Care Provider [phone] Vicenta Nielsen NP Primary Care Provider [phone] Reason for Visit * Reason Onset Date Comments Forms/questionnaires 09/17/2022 Encounter Details Date Type Department Care Team (Late Contact Info) Description 09/17/[address] [facility] CHC MED & PEDS [address] [place] [address] Valery Berrios MD [address] [place] [address] Forms/questionnaires Social History Tobacco Use Types Packs/Day [...] Encounters Date Type Department Care Team (Late Contact Info) Description 02/09/2025 11:15 AM EDT Office Visit [facility] MEDICINE [address] [place] [address] Vicenta Nielsen NP [address] [place] [address] documented as of this encounter Visit Diagnoses Not on filedocumented in this encounter Care Teams Dormitory Counselor Relationship Specialty Start Date End Date Valery Berrios MD [address] [place] [address] PCP - General Internal Medicine 12/01/18 12/21/23 Vicenta Nielsen NP [address] [place] [address] PCP - General Family Medicine 12/22/23 [facility] 04/29/24 abigail mcneill KalsominerStore Grocery Merchandiser 10/18/24 documented as of this encounter
--- OUTSIDE RECORDS SUMMARY | 2025-01-26 14:01 | XMS_ITS | Encounter Summary ---
Author Organization [employer] Address [address] [place] [address] 7t [place] [address] Care Team Providers Care Member Of Congress Name Role Phone Vicenta Nielsen NP Primary Care Provider [phone] Reason for Visit * Reason Comments Med Refill Encounter Details Date Type Department Care Team ([facility] st Contact Info) Description 01/25/2025 Refill [facility] MEDICINE [address] [place], [place] [phone] Vicenta Nielsen NP 230 [place] [address] Type 2 diabetes mellitus with hyperglycemia, with long-term current use of insulin ([facility]); Type 2 diabetes mellitus without complication, with long-term current use of insulin ([facility]) Social History Tobacco Use Types Packs/Day Years Used Date Smoking Tobacco: Former Cigarettes Passive Smoke Exposure: Past Smokeless Tobacco: Never Alcohol Use Standard Drinks/Week [...] Description 02/09/2025 11:15 AM EDT Office Visit [facility] MED[facility]INE [address] [place] [address] Vicenta Nielsen NP [address] [place] [address] documented as of this encounter Visit Diagnoses Diagnosis Type 2 diabetes mellitus with hyperglycemia, with long-term current use of insulin ([facility]) Type 2 diabetes mellitus without complication, with long-term current use of insulin ([facility]) documented in this encounter Additional Health Concerns Assessment Noted Time PHQ-9 Depression Total Score: 7 07/25/20 24 9:24 AM EDT documented as of this encounter Care Teams Member Of Congress Relationship Specialty Start Date End Date Vicenta Nielsen NP [address] [place] [address] PCP - General Family Medicine 12/22/23 [employer] 04/29/24 abigail mcneill Youth Liaison OfficerCvt Rn 10/18/24 documented as of this encounter
--- OUTSIDE RECORDS SUMMARY | 2025-01-26 14:01 | XMS_ITS | Encounter Summary ---
Author Organization [employer] Address [address] [place] [address] 7 [place] [address] Care Team Providers Care Fringing Machine Operator Name Role Phone Valery Berrios MD Primary Care Provider [phone] Vicenta Nielsen NP Primary Care Provider [phone] Encounter Details Date Type Department Care Team (Late st Contact Info) Description 04/21/2023 Orders Only [facility] CHC MED & PEDS [address] [place] [address] Valery Berrios MD [address] [facility] [place] [address] Other iron deficiency anemia Social History Tobacco [...] Description 02/09/2025 11:15 AM EDT Office Visit [facility] MEDICINE [address] [place] [address] Vicenta Nielsen NP [address] [place] [address] documented as of this encounter Visit Diagnoses Diagnosis Other iron deficiency anemia documented in this encounter Additional Health Concerns Assessment Noted Time PHQ-9 Depression Total Score: 0 10/20/19 23 2:41 PM EST documented as of this encounter Care Teams Fringing Machine Operator Relationship Specialty Start Date End Date Valery Berrios MD [address] [place] [address] PCP - General Internal Medicine 12/01/18 12/21/23 Vicenta Nielsen NP [address] [place] [address] PCP - General Family Medicine 12/22/23 [employer] 04/29/24 abigail mcneill Sap Basis ConsultantSafety Professional 10/18/24 documented as of this encounter
--- OUTSIDE RECORDS SUMMARY | 2025-01-26 14:01 | XMS_ITS | Encounter Summary ---
Author Organization [facility] [place] [address] Care Team Providers Care Metal Furnace Operator Name Role Phone Vicenta Nielsen RAZ Primary Care Provider [phone] Encounter Details Date Type Department Care Team (Late st Contact Info) Description 08/30/2024 Lab Requisition [facility] - Main Lab [address] [facility] [place] [address] Mary Song PA [address] [address] Cellulitis, unspecified Social History Tobacco Use Types [...] K/mcL LAB HEMETOLOGY METHOD 08/30/2024 9:13 AM [facility] RBC 3.90(L) 4.50 - 5.50 M/mcL LAB HEMETOLOGY METHOD 08/30/2024 9:13 AM [facility] Hemoglobin 10.5(L) 13.5 - 17.5 g/dL LAB HEMETOLOGY METHOD 08/30/2024 9:13 AM [facility] Hematocrit 32.8(L) 42.0 - 54.0 % LAB HEMETOLOGY METHOD 08/30/2024 9:13 AM [facility] MCV 84.5 79.0 - 98.0 FL LAB HEMETOLOGY METHOD 08/30/2024 9:13 AM [facility] MCH 27.1 27.0 - 32.0 pcg LAB HEMETOLOGY METHOD 08/30/2024 9:13 AM [facility] MCHC 32.0 32.0 - 37.0 g/dL LAB HEMETOLOGY METHOD 08/30/2024 9:13 AM [facility] RDW 14.9 11.0 - 15.0 % LAB HEMETOLOGY METHOD 08/30/2024 9:13 AM [facility] Platelets 206 130 - 400 K/mcL LAB HEMETOLOGY METHOD 08/30/2024 9:13 AM [facility] MPV 12.6(H) 7.0 - 11.0 FL LAB HEMETOLOGY METHOD 08/30/2024 9:13 AM [facility] NRBC 0.0 <1.0 % LAB HEMETOLOGY METHOD 08/30/2024 9:13 AM [facility] NRBC Absolute 0.00 <0.10 K/mcL LAB HEMETOLOGY METHOD 08/30/2024 9:13 AM [facility] Neutrophils Relative 63.6 % LAB HEMETOLOGY METHOD 08/30/2024 9:13 AM [facility] Lymphocytes Relative 20.7 % LAB HEMETOLOGY METHOD 08/30/2024 9:13 AM [facility] Monocytes Relative 11.6 % LAB HEMETOLOGY METHOD 08/30/2024 9:13 AM [facility] Eosinophils Relative 3.0 % LAB HEMETOLOGY METHOD 08/30/2024 9:13 AM [facility] Basophils Relative 1.0 % LAB HEMETOLOGY METHOD 08/30/2024 9:13 AM [facility] Immature Granulocytes Relative 0.1 % LAB HEMETOLOGY METHOD 08/30/2024 9:13 AM [facility] Neutrophils Absolute 4.26 1.50 - 7.00 K/mcL LAB HEMETOLOGY METHOD 08/30/2024 9:13 AM [facility] Lymphocytes Absolute 1.39 1.00 - 5.00 K/mcL LAB HEMETOLOGY METHOD 08/30/2024 9:13 AM [facility] Monocytes Absolute 0.78 0.20 - 1.00 K/mcL LAB HEMETOLOGY METHOD 08/30/2024 9:13 AM [facility] Eosinophils Absolute 0.20 0.00 - 0.50 K/mcL LAB HEMETOLOGY METHOD 08/30/2024 9:13 AM [facility] Basophils Absolute 0.07 0.00 - 0.20 K/mcL LAB HEMETOLOGY METHOD 08/30/2024 9:13 AM [facility] Immature Granulocytes Absolute 0.01 0.00 - 0.03 K/mcL LAB HEMETOLOGY METHOD 08/30/2024 9:13 AM EST [facility] Blood Venous blood specimen / Unknown 08/29/2024 08/30/2024 9:03 AM EST Mary ROE LAB BLOOD ORDERABLES Final Result [facility] LAB [address] [place] [address], [place] [phone] * Creatine kinase (08/29/2024 12:00 AM EST) Pathologist [facility] Total CK 63 22 - 269 unit/L LAB CHEMISTRY METHOD 08/30/2024 9:25 AM [facility] Blood Venous blood specimen / Unknown 08/29/2024 08/30/2024 9:03 AM EST Mary ROE LAB BLOOD ORDERABLES Final Result Performing Organization Address City/[facility]/ZIP Co de Phone Number [facility] [address] [place] [address], [place] [phone] * (ABNORMAL) Comprehensive metabolic panel (08/29/2024 12:00 AM EST) [facility] Sodium 138 133 - 145 mmol/L LAB CHEMISTRY METHOD 08/30/2024 9:25 AM [facility] Potassium 4.8 3.5 - 5.5 mmol/L LAB CHEMISTRY METHOD 08/30/2024 9:25 AM [facility] Chloride 105 96 - 110 mmol/L LAB CHEMISTRY METHOD 08/30/2024 9:25 AM [facility] CO2 27 21 - 32 mmol/L LAB CHEMISTRY METHOD 08/30/2024 9:25 AM [facility] Anion Gap 6 3 - 11 LAB CHEMISTRY METHOD 08/30/2024 9:25 AM [facility] Glucose 104(H) 70 - 100 mg/dL LAB CHEMISTRY METHOD 08/30/2024 9:25 AM [facility] BUN 26(H) 5 - 25 mg/dL LAB CHEMISTRY METHOD 08/30/2024 9:25 AM [facility] Creatinine 1.10 0.70 - 1.30 mg/dL LAB CHEMISTRY METHOD 08/30/2024 9:25 AM [facility] eGFR 77 >=60 mL/min/1. 73m2 LAB CHEMISTRY METHOD 08/30/2024 9:25 AM [facility] Comment:Calculation based on the??Chronic Kidney Disease Epidemiology Collaboration (CKD-EPI) equation refit??without adjustment for race. BUN/Creatinine Ratio 23.6 LAB CHEMISTRY METHOD 08/30/2024 9:25 AM [facility] Calcium 9.4 8.5 - 10.5 mg/dL LAB CHEMISTRY METHOD 08/30/2024 9:25 AM [facility] AST (SGOT) 16 10 - 42 unit/L LAB CHEMISTRY METHOD 08/30/2024 9:25 AM [facility] ALT (SGPT) 24 10 - 60 unit/L LAB CHEMISTRY METHOD 08/30/2024 9:25 AM [facility] Alkaline Phosphatase 91 42 - 121 unit/L LAB CHEMISTRY METHOD 08/30/2024 9:25 AM [facility] Total Protein 7.7 6.0 - 8.0 g/dL LAB CHEMISTRY METHOD 08/30/2024 9:25 AM [facility] Albumin 4.0 3.2 - 5.0 g/dL LAB CHEMISTRY METHOD 08/30/2024 9:25 AM [facility] Total Bilirubin 0.2 0.0 - 1.4 mg/dL LAB CHEMISTRY METHOD 08/30/2024 9:25 AM [facility] Blood Venous blood specimen / Unknown 08/29/2024 08/30/2024 9:03 AM EST us Mary ROE LAB BLOOD ORDERABLES Final Result [facility] [address] [place] [address], documented in this encounter Visit Diagnoses Diagnosis Cellulitis, unspecified documented in this encounter Care Teams Metal Furnace Operator Relationship Specialty Start Date End Date Vicenta Nielsen FNP [address] [place] [phone] PCP - General 05/26/24 documented as of this encounter
--- OUTSIDE RECORDS SUMMARY | 2025-01-26 14:01 | XMS_ITS | Encounter Summary ---
Author Organization [employer] Address [address] [place] [address] 7t [place] [address] Care Team Providers Care Diesel Powerplant Mechanic Name Role Phone Vicenta Nielsen NP Primary Care Provider [phone] Reason for Visit * Reason Onset Date Comments PT1 01/18/2025 Encounter Details Date Type Department Care Team ([facility] st Contact Info) Description 01/18/2025 Telephone [facility] MEDICINE [address] [place], [place] [phone] Vicenta Nielsen NP [address] [place] [address] PT1 Social History Tobacco Use Types Packs/Day [...] * Telephone Encounter - Rama Eller - 01/18/2025 11:47 AM EDT Patient calling requesting PT1 Home Address verified: Y/N: Yes Provider name or facility name: [address] [place] [address] Escort needed: Y/N: Yes door to door services Do you have a wheelchair: Y/N: Yes If yes- Manual or electric: electric Visits: (10x monthly) documented in this encounter Plan of Treatment Upcoming Encounters Date Type Department Care Team (Late st Contact Info) Description 02/09/2025 11:15 AM EDT Office Visit [facility] MEDICINE [address] [place] [address] Vicenta Nielsen NP [address] [place] [address] documented as of this encounter Visit Diagnoses Not on filedocumented in this encounter Additional Health Concerns Assessment Noted Time PHQ-9 Depression Total Score: 7 07/25/20 24 9:24 AM EDT documented as of this encounter Care Teams Diesel Powerplant Mechanic Relationship Specialty Start Date End Date Vicenta Nielsen NP [address] [place] [address] PCP - General Family Medicine 12/22/23 [facility] [employer] 04/29/24 abigail mcneill Picture EngraverBusiness Continuity Management Director 10/18/24 documented as of this encounter
--- OUTSIDE RECORDS SUMMARY | 2025-01-26 14:01 | XMS_ITS | Encounter Summary ---
Author Organization [facility] Address [address] [place] [address] Care Team Providers Care Appellate Court Clerk Name Role Phone Vicenta Nielsen Primary Care Provider [phone] Encounter Details Date Type Department Care Team Description 05/30/[address] [facility] Oncology Services [address] [place] [address] Claude Resendiz, [facility] Social History Tobacco Use Types Packs/Day Years [...] on filedocumented in this encounter Care Teams Appellate Court Clerk Relationship Specialty Start Date End Date Vicenta Nielsen [address] [place] [phone] PCP - General Family Medicine 05/26/24 documented as of this encounter
--- OUTSIDE RECORDS SUMMARY | 2025-01-26 14:01 | XMS_ITS | Encounter Summary ---
Author Organization [employer] Address [address] [place] [address] Street 7t [place] [address] Care Team Providers Care Salon Designer Name Role Phone Vicenta Nielsen NP Primary Care Provider [phone] Reason for Visit * Reason Onset Date Comments FYI 10/12/2024 Encounter Details Date Type Department Care Team ([facility] st Contact Info) Description 10/12/2024 Telephone [facility] MEDICINE [address] [place], [place] [phone] Vicenta Nielsen NP [address] [place] [address] FYI Social History Tobacco Use Types Packs/Day [...] Description 02/09/2025 11:15 AM EDT Office Visit [facility] MEDICINE [address] [place] [address] Vicenta Nielsen NP [address] [place] [address] documented as of this encounter Visit Diagnoses Not on filedocumented in this encounter Additional Health Concerns Assessment Noted Time PHQ-9 Depression Total Score: 7 07/25/20 9:24 AM EDT documented as of this encounter Care Teams Salon Designer Relationship Specialty Start Date End Date Vicenta Nielsen NP [address] [place] [address] PCP - General Family Medicine 12/22/23 [employer] 7/27/24 abigail mcneill Binder Stripper HandWater Resources Business Segment Leader 10/18/24 documented as of this encounter
--- OUTSIDE RECORDS SUMMARY | 2025-01-26 14:01 | XMS_ITS | Encounter Summary ---
Author Organization [employer] Address [address] [place] [address] 7 [place] [address] Care Team Providers Care Senior Electrical Project Manager Name Role Phone Vicenta Nielsen NP Primary Care Provider [phone] Reason for Visit * Reason Onset Date Comments PT-1 10/31/2024 Encounter Details Date Type Department Care Team ([facility] st Contact Info) Description 10/31/2024 Telephone [facility] MEDICINE [address] [place], [place] [phone] Vicenta Nielsen NP [address] [place] [address] PT-1 Social History Tobacco Use Types Packs/Day [...] Yes Provider name or facility name: [address] [facility] [facility] Escort needed: Y/N: Yes Do you have a wheelchair: Y/N: Yes If yes- Manual or electric: electric Visits: (3) ( x monthly) * Telephone Encounter - Jacobo Ross - 10/31/2024 10:29 AM EST Patient calling requesting PT1 Home Address verified: Y/N: Yes Provider name or facility name: [facility] [address] [place] [address] Escort needed: Y/N: Yes Do you have a wheelchair: Y/N: Yes If yes- Manual or electric: Electric Visits: (amount of visits) ( x monthly, weekly, daily) 10 times a month for 3 month documented in this encounter Plan of Treatment Upcoming Encounters Date Type Department Care Team ([facility] st Contact Info) Description 02/09/2025 11:15 AM EDT Office Visit [facility] MEDICINE [address] [place] [address] Vicenta Nielsen NP [address] [place] [address] documented as of this encounter Visit Diagnoses Not on filedocumented in this encounter Additional Health Concerns Assessment Noted Time PHQ-9 Depression Total Score: 7 07/25/20 24 9:24 AM EDT documented as of this encounter Care Teams Senior Electrical Project Manager Relationship Specialty Start Date End Date Vicenta Nielsen NP [address] [place] [address] PCP - General Family Medicine 12/22/23 [employer] 04/29/24 abigail mcneill Cashier AssociateWarehouse Insulation Worker 10/18/24 documented as of this encounter
--- OUTSIDE RECORDS SUMMARY | 2025-01-26 14:01 | XMS_ITS | Encounter Summary ---
Author Organization [employer] Address [address] [place] [address] 7t [place] [address] Care Team Providers Care Registered Diet Technician Name Role Phone Vicenta Nielsen NP Primary Care Provider [phone] Reason for Visit * Reason Comments Med Refill Encounter Details Date Type Department Care Team ([facility] st Contact Info) Description 01/23/2025 Refill [facility] MEDICINE [address] [place], [place] [phone] Kimberly Bloom NP [address] [place] [address] Type 2 diabetes mellitus without complication, with long-term current use of insulin ([facility] Social History Tobacco Use Types Packs/Day Years [...] 02/09/2025 11:15 AM EDT Office Visit [facility] MEDICINE [address] [place] [address] Vicenta Nielsen NP [address] [place] [address] documented as of this encounter Visit Diagnoses Diagnosis Type 2 diabetes mellitus without complication, with long-term current use of insulin ([facility]) documented in this encounter Additional Health Concerns Assessment Noted Time PHQ-9 Depression Total Score: 7 07/25/20 9:24 AM EDT documented as of this encounter Care Teams Registered Diet Technician Relationship Specialty Start Date End Date Vicenta Nielsen NP [address] [place] [address] PCP - General Family Medicine 12/22/23 [employer] 04/29/24 abigail mcneill Flask FitterPapier Mache Molder 10/18/24 documented as of this encounter
--- OUTSIDE RECORDS SUMMARY | 2025-01-26 14:01 | XMS_ITS | Encounter Summary ---
Author Organization [employer] Address [address] [place] [address] 7 [place] [address] Care Team Providers Care Destaticizer Feeder Name Role Phone Valery Berrios MD Primary Care Provider [phone] Vicenta Nielsen NP Primary Care Provider [phone] Encounter Details Date Type Department Care Team ([facility] st Contact Info) Description 11/18/2023 Orders Only [facility] MED & [facility]EDS [address] [facility] [place] [address] Valery Berrios MD [address] [facility] [place] [address] Benign hypertension (Primary Dx) Social History Tobacco [...] 11:15 AM EDT Office Visit [facility] MEDICINE [address] [place] [address] Vicenta Nielsen NP [address] [place], [place] [phone] Scheduled Orders Name Type Priority Associated Diagnoses [...] Blood Count 7.8 4.8 - 10.8 X10*3/uL [facility] Red Blood Count 3.54(L) 4.60 - 5.80 X10*6/uL [facility] Hemoglobin 9.5(L) 14.0 - 18.0 g/dl [facility] Hematocrit 29.7(L) 42.0 - 52.0 % [facility] Mean Corpuscular Volume 83.9 80.0 - 98.0 fL [facility] Mean Corpuscular Hemoglobin 26.8(L) 27.0 - 33.0 pg [facility] Mean Corpuscular HGB Conc 32.0 31.0 - 36.0 g/dl [facility] Red Cell Distribution Width 14.0 11.0 - 16.0 % [facility] Platelet Count 236 160 - 400 X10*3/uL [facility] Mean Platelet Volume 11.3 9.4 - 12.4 fL [facility] Neutrophils Percent Auto 75.3(H) 45 - 73 % [facility] Imm Gran Pct Auto 0.4 0.0 - 0.4 % [facility] Lymphocytes Percent Auto 12.9(L) 20 - 40 % [facility] Monocytes Percent Auto 9.7 2 - 11 % [facility] Eosinophils Percent Auto 1.2 0 - 4 % [facility] Basophils Percent Auto 0.5 0 - 2 % [facility] NRBC Pct Auto 0.0 0.0 - 0.2 /100WBC [facility] Neutrophils Absolute Auto 5.9 2.0 - 8.3 x10*3/uL [facility] Imm Gran Abs Auto 0.03 0.00 - 0.03 X10*3/uL [facility] Lymphocytes Absolute Auto 1.0(L) 1.2 - 4.9 X10*3/uL [facility] Monocytes Absolute Auto 0.8 0.1 - 1.2 X10*3/uL [facility] Eosinophils Absolute Auto 0.1 0.0 - 0.4 X10*3/uL [facility] Basophils Absolute Auto 0.0 0.0 - 0.2 X10*3/uL [facility] NRBC Abs Auto 0.000 0.0 - 0.012 X10*3/uL [facility] Blood Venous blood specimen / Unknown 05/23/2024 11:38 AM EDT 05/23/2024 1:31 PM EDT Valery Berrios MD LAB BLOOD ORDERABLES Final Result [facility] [address] [place] [phone] documented in this encounter Visit Diagnoses Diagnosis Benign hypertension- Primary Essential hypertension, benign documented in this encounter Additional Health Concerns Assessment Noted Time PHQ-9 Depression Total Score: 0 10/20/19 23 2:41 PM EST documented as of this encounter Care Teams Destaticizer Feeder Relationship Specialty Start Date End Date Valery Berrios MD [address] [place] [address] PCP - General Internal Medicine 12/01/18 12/21/23 Vicenta Nielsen NP [address] [place] [address] PCP - General Family Medicine 12/22/23 [employer] 04/29/24 abigail mcneill Director Community OrganizationLuncheonette Manager 10/18/24 documented as of this encounter
--- OUTSIDE RECORDS SUMMARY | 2025-01-26 14:01 | XMS_ITS | Encounter Summary ---
Author Organization [employer] Address [address] [place] [address] 7t [place] [address] Care Team Providers Care Grant Administrator Name Role Phone Vicenta Nielsen NP Primary Care Provider Reason for Visit * Reason Onset Date Comments Call Back Request 03/10/2024 Encounter Details Date Type Department Care Team ([facility] st Contact Info) Description 03/10/[address] [facility] MEDICINE [address] [place], [place] [phone] Vicenta Nielsen NP [address] [place] [address] Call Back Request Social History Tobacco Use [...] scanned in chart. Please contact pt at [phone] documented in this encounter Plan of Treatment Upcoming Encounters Date Type Department Care Team (Late st Contact Info) Description 02/09/2025 11:15 AM EDT Office Visit [facility] MEDICINE [address] [place] [address] Vicenta Nielsen NP [address] [place] [address] documented as of this encounter Visit Diagnoses Not on filedocumented in this encounter Additional Health Concerns Assessment Noted Time PHQ-9 Depression Total Score: 5 01/04/20 24 10:57 AM EDT documented as of this encounter Care Teams Grant Administrator Relationship Specialty Start Date End Date Vicenta Nielsen NP [address] [place] [address] PCP - General Family Medicine 12/22/23 [employer] 04/29/24 abigail mcneill Machine Shop WorkerQuality Control Inspector Heading 10/18/24 documented as of this encounter
--- OUTSIDE RECORDS SUMMARY | 2025-01-26 14:01 | XMS_ITS | Encounter Summary ---
Author Organization [employer] Address [address] [facility] 7 [place] [address] Care Team Providers Care Accelerator Operator Name Role Phone Valery Berrios MD Primary Care Provider [phone] Vicenta Nielsen NP Primary Care Provider [phone] Reason for Visit * Reason Onset Date Comments Transfer Patient 09/13/2023 Encounter Details Date Type Department Care Team (Late st Contact Info) Description 09/13/2023 Telephone [facility] MEDICINE [address] [place] [address] Valery Berrios MD 505 [facility] BHARTI Barbosa [phone] Transfer Patient Social History Tobacco Use Types Packs/Day Years Used Date Smoking Tobacco: Every Day Cigarettes Passive Smoke Exposure: Current Smokeless Tobacco: Never Depression Answer Date Recorded Patient Health Questionnaire-9 Score 0 10/20/2022 Housing Stability Answer Date Recorded What is your housing situation today? I do not have housing (Staying with others, in a hotel, in a chcf, living outside on the street, on a [...] encounter Miscellaneous Notes * Telephone Encounter - Isaitawnyabruce Burciaga - 10/13/2023 2:34 PM EST Tc from pt requesting status on TP Please contact pt @ [phone] * Telephone Encounter - Jone Kaufman - 09/13/2023 1:58 PM EST Tc from patient requesting to be transferred to the [facility] due to patient residing at [place] documented in this encounter Plan of Treatment Upcoming Encounters Date Type Department Care Team (Late st Contact Info) Description 02/09/2025 11:15 AM EDT Office Visit [facility] MEDICINE [address] [place] [address] Vicenta Nielsen NP 230 [place] [address] documented as of this encounter Visit Diagnoses Not on filedocumented in this encounter Additional Health Concerns Assessment Noted Time PHQ-9 Depression Total Score: 0 10/20/19 23 2:41 PM EST documented as of this encounter Care Teams Accelerator Operator Relationship Specialty Start Date End Date Valery Berrios MD [address] [place] [address] PCP - General Internal Medicine 12/01/18 12/21/23 Vicenta Nielsen NP [address] [place] [address] PCP - General Family Medicine 12/22/23 [employer] 04/29/24 abigail [email or web address] Vice President Of Software DevelopmentAuditing Clerk 10/18/24 documented as of this encounter
--- OUTSIDE RECORDS SUMMARY | 2025-01-26 14:01 | XMS_ITS | Encounter Summary ---
Author Organization [employer] Address [address] [place] [address] 7t [place] [address] Care Team Providers Care Business Operations Coordinator Name Role Phone Vicenta Nielsen NP Primary Care Provider [phone] Reason for Visit * Reason Onset Date Comments Referral 10/31/2024 Encounter Details Date Type Department Care Team ([facility] st Contact Info) Description 10/31/2024 Telephone [facility] MEDICINE [address] [place], [place] [phone] Vicenta Nielsen NP 230 [place] [address] Referral Social History Tobacco Use Types Packs/Day [...] in a lot of pain. Contact pt: [phone] documented in this encounter Plan of Treatment Upcoming Encounters Date Type Department Care Team (Late st Contact Info) Description 02/09/2025 11:15 AM EDT Office Visit [facility] MEDICINE [address] [place] [address] Vicenta Nielsen NP [address] [place] [address] documented as of this encounter Visit Diagnoses Not on filedocumented in this encounter Additional Health Concerns Assessment Noted Time PHQ-9 Depression Total Score: 7 07/25/20 9:24 AM EDT documented as of this encounter Care Teams Business Operations Coordinator Relationship Specialty Start Date End Date Vicenta Nielsen NP [address] [place] [address] PCP - General Family Medicine 12/22/23 [employer] 04/29/24 abigail [email or web address] Manager GamingCranberry Sorter 10/18/24 documented as of this encounter
--- OUTSIDE RECORDS SUMMARY | 2025-01-26 14:01 | XMS_ITS | Encounter Summary ---
Author Organization [employer] Address [address] [place] [address] 7 [place] [address] Care Team Providers Care Gasoline Engine Inspector Name Role Phone Vicenta Nielsen NP Primary Care Provider [phone] Reason for Visit * Reason Onset Date Comments PT-1 12/01/2024 Encounter Details Date Type Department Care Team ([facility] st Contact Info) Description 12/01/2024 Telephone [facility]INE [address] [place], [place] [phone] Vicenta Nielsen NP 230 [place] [address] PT-1 Social History Tobacco Use Types Packs/Day [...] Status of prior message. Contact pt at [phone] * Telephone Encounter - Jacobo Ross - 12/01/2024 11:59 AM EST Patient calling requesting PT1 Home Address verified: Y/N: Yes Provider name or facility name: [address] [place] [address] Escort needed: Y/N: Yes Do you have a wheelchair: Y/N: Yes If yes- Manual or electric: Electric Visits: (amount of visits) ( x monthly, weekly, daily) 5 times a month documented in this encounter Plan of Treatment Upcoming Encounters Date Type Department Care Team (Late st Contact Info) Description 02/09/2025 11:15 AM EDT Office Visit [facility] [address] [place] [address] Vicenta Nielsen NP 230 [place] [address] documented as of this encounter Visit Diagnoses Not on filedocumented in this encounter Additional Health Concerns Assessment Noted Time PHQ-9 Depression Total Score: 7 07/25/20 24 9:24 AM EDT documented as of this encounter Care Teams Gasoline Engine Inspector Relationship Specialty Start Date End Date Vicenta Nielsen NP 230 [place] [address] PCP - General Family Medicine 12/22/23 [employer] 04/29/24 abigail [email or web address] Analytical StrategistApprenticeship Training Representative 10/18/24 documented as of this encounter
--- OUTSIDE RECORDS SUMMARY | 2025-01-26 14:01 | XMS_ITS | Encounter Summary ---
Author Organization [employer] Address [address] [place] [address] 7 [place] [address] Care Team Providers Care Security Operations Center Operator Name Role Phone Valery Berrios MD Primary Care Provider [phone] Vicenta Nielsen NP Primary Care Provider [phone] Encounter Details Date Type Department Care Team (Late st Contact Info) Description 10/30/2022 Abstract [facility] CHC MED & PEDS [address] [place] [address] Valery Berrios MD 505 [place] [address] Social History Tobacco Use Types Packs/Day Years [...] Description 02/09/2025 11:15 AM EDT Office Visit [facility] MEDICINE 230 [place] [address] Vicenta Nielsen NP 230 [place] [address] documented as of this encounter Visit Diagnoses Not on filedocumented in this encounter Additional Health Concerns Assessment Noted Time PHQ-9 Depression Total Score: 0 10/20/19 23 2:41 PM EST documented as of this encounter Care Teams Security Operations Center Operator Relationship Specialty Start Date End Date Valery Berrios MD [address] [place] [address] PCP - General Internal Medicine 12/01/18 12/21/23 Vicenta Nielsen NP 230 [place] [address] PCP - General Family Medicine 12/22/23 [employer] 04/29/24 abigail [email or web address] Pig FarmerSafety And Health Manager 10/18/24 documented as of this encounter
--- OUTSIDE RECORDS SUMMARY | 2025-01-26 14:01 | XMS_ITS | Clinical Summary ---
Author Organization [facility] Address [address] [place] [address] Care Team Providers Care Clay Artist Name Role Phone Vicenta Nielsen Primary Care Provider [phone] Allergies Active Allergy Reactions Criticality Noted Date [...] age to complete this topic Care Teams Clay Artist Relationship Specialty Start Date End Date Vicenta Nielsen [address] [place] [phone] PCP - General Family Medicine 05/26/24
--- OUTSIDE RECORDS SUMMARY | 2025-01-26 14:01 | XMS_ITS | Encounter Summary ---
Author Organization [employer] Address [address] [place] [address] 7 [place] [address] Care Team Providers Care Commercial Loan Assistant Name Role Phone Valery Berrios MD Primary Care Provider [phone] Vicenta Nielsen NP Primary Care Provider [phone] Reason for Visit * Reason Onset Date Comments medication 07/14/2023 Encounter Details Date Type Department Care Team ([facility] st Contact Info) Description 07/14/2023 Telephone [facility] CHC MED & PEDS [address] [facility] [place] [address] Valery Berrios MD [address] [place] [address] medication Social History Tobacco Use Types Packs/Day [...] see message below. Retrieved Endo note from [employer]. Per note, plan is to reinitiate metformin 1000mg bid. Could consider adding and SGLT 2 inhibitor in the future. Will increase lantus to 65units at possibly 70 units to keep point care in a.m <180 ... Will send note to scan for PCP to review. * Telephone Encounter - Ying Cox - 07/14/2023 11:20 AM EDT Tc from pt stating contract specialist is requesting pt switch from 55 to 65 units on insulin glargine (Lantus) 100 UNIT/ML injection. documented in this encounter Plan of Treatment Upcoming Encounters Date Type Department Care Team (Late st Contact Info) Description 02/09/2025 11:15 AM EDT Office Visit [facility] MEDICINE [address] [place] [address] Vicenta Nielsen NP 230 [place] [address] documented as of this encounter Visit Diagnoses Not on filedocumented in this encounter Additional Health Concerns Assessment Noted Time PHQ-9 Depression Total Score: 0 10/20/19 23 2:41 PM EST documented as of this encounter Care Teams Commercial Loan Assistant Relationship Specialty Start Date End Date Valery Berrios MD [address] [place] [address] PCP - General Internal Medicine 12/01/18 12/21/23 Viecnta Nielsen NP [address] [place] [address] PCP - General Family Medicine 12/22/23 [employer] 04/29/24 abigail [email or web address] Screen Printing InspectorTire Service Technician 10/18/24 documented as of this encounter
--- OUTSIDE RECORDS SUMMARY | 2025-01-26 14:01 | XMS_ITS | Encounter Summary ---
Author Organization [employer] Address [address] [place] [address] 7t [place] [address] Care Team Providers Care Costing Analyst Name Role Phone Vicenta Nielsen NP Primary Care Provider [phone] Reason for Visit * Reason Onset Date Comments Medication Question 01/23/2025 Encounter Details Date Type Department Care Team ([facility] st Contact Info) Description 01/23/2025 Telephone [facility] MEDICINE [address] [place], [place] [phone] Vicenta Nielsen NP 230 [place] [address] Medication Question Social History Tobacco Use Types [...] encounter Miscellaneous Notes * Telephone Encounter - Ree Mejia - 01/23/2025 4:09 PM EDT Tc from pt stating that he does not want any change in this medication and requesting medication refill. Medications needing refill : [facility] To be sent to: [facility] [place], [place] - [address] [facility] Contact at [phone] documented in this encounter Plan of Treatment Upcoming Encounters Date Type Department Care Team (Late st Contact Info) Description 02/09/2025 11:15 AM EDT Office Visit [facility] MEDICINE [address] [place] [address] Vicenta Nielsen NP [address] [place] [address] documented as of this encounter Visit Diagnoses Diagnosis Type 2 diabetes mellitus without complication, with long-term current use of insulin ([facility] documented in this encounter Additional Health Concerns Assessment Noted Time PHQ-9 Depression Total Score: 7 07/25/20 24 9:24 AM EDT documented as of this encounter Care Teams Costing Analyst Relationship Specialty Start Date End Date Vicenta Nielsen NP [address] [place] [address] PCP - General Family Medicine 12/22/23 [employer] 04/29/24 abigail [email or web address] Art Objects RepairerCut Off Machine Unloader 10/18/24 documented as of this encounter
--- OUTSIDE RECORDS SUMMARY | 2025-01-26 14:01 | XMS_ITS | Encounter Summary ---
Author Organization [place] [address] Care Team Providers Care Clinical Appeals Reviewer Name Role Phone Vicenta Nielsen RAZ Primary Care Provider [phone] Encounter Details Date Type Department Care Team (Late st Contact Info) Description 08/07/2024 Lab Requisition [facility] - Main Lab [address] [facility] [place] [address] Mary Song PA [address] [address] Obesity, unspecified Social History Tobacco Use Types [...] CBC auto differential (08/07/2024 12:00 AM EST) [facility] WBC 5.4 4.8 - 10.8 K/mcL LAB HEMETOLOGY METHOD 08/07/2024 7:14 PM [facility] RBC 3.80(L) 4.50 - 5.50 M/mcL LAB HEMETOLOGY METHOD 08/07/2024 7:14 PM [facility] Hemoglobin 9.9(L) 13.5 - 17.5 g/dL LAB HEMETOLOGY METHOD 08/07/2024 7:14 PM [facility] Hematocrit 31.4(L) 42.0 - 54.0 % LAB HEMETOLOGY METHOD 08/07/2024 7:14 PM [facility] MCV 83.7 79.0 - 98.0 FL LAB HEMETOLOGY METHOD 08/07/2024 7:14 PM [facility] MCH 26.4(L) 27.0 - 32.0 pcg LAB HEMETOLOGY METHOD 08/07/2024 7:14 PM [facility] MCHC 31.5(L) 32.0 - 37.0 g/dL LAB HEMETOLOGY METHOD 08/07/2024 7:14 PM [facility] RDW 14.6 11.0 - 15.0 % LAB HEMETOLOGY METHOD 08/07/2024 7:14 PM [facility] Platelets 186 130 - 400 K/mcL LAB HEMETOLOGY METHOD 08/07/2024 7:14 PM [facility] MPV 12.0(H) 7.0 - 11.0 FL LAB HEMETOLOGY METHOD 08/07/2024 7:14 PM [facility] NRBC 0.0 <1.0 % LAB HEMETOLOGY METHOD 08/07/2024 7:14 PM [facility] NRBC Absolute 0.00 <0.10 K/mcL LAB HEMETOLOGY METHOD 08/07/2024 7:14 PM [facility] Neutrophils Relative 59.9 % LAB HEMETOLOGY METHOD 08/07/2024 7:14 PM [facility] Lymphocytes Relative 25.9 % LAB HEMETOLOGY METHOD 08/07/2024 7:14 PM [facility] Monocytes Relative 9.6 % LAB HEMETOLOGY METHOD 08/07/2024 7:14 PM [facility] Eosinophils Relative 3.5 % LAB HEMETOLOGY METHOD 08/07/2024 7:14 PM [facility] Basophils Relative 0.9 % LAB HEMETOLOGY METHOD 08/07/2024 7:14 PM [facility] Immature Granulocytes Relative 0.2 % LAB HEMETOLOGY METHOD 08/07/2024 7:14 PM [facility] Neutrophils Absolute 3.26 1.50 - 7.00 K/mcL LAB HEMETOLOGY METHOD 08/07/2024 7:14 PM [facility] Lymphocytes Absolute 1.41 1.00 - 5.00 K/mcL LAB HEMETOLOGY METHOD 08/07/2024 7:14 PM [facility] Monocytes Absolute 0.52 0.20 - 1.00 K/mcL LAB HEMETOLOGY METHOD 08/07/2024 7:14 PM [facility] Eosinophils Absolute 0.19 0.00 - 0.50 K/mcL LAB HEMETOLOGY METHOD 08/07/2024 7:14 PM [facility] Basophils Absolute 0.05 0.00 - 0.20 K/mcL LAB HEMETOLOGY METHOD 08/07/2024 7:14 PM [facility] Immature Granulocytes Absolute 0.01 0.00 - 0.03 K/mcL LAB HEMETOLOGY METHOD 08/07/2024 7:14 PM EST [facility] Blood Venous blood specimen / Unknown Venipuncture / Unknown 08/07/2024 08/07/2024 7:01 PM EST Mary ROE LAB BLOOD ORDERABLES Final Result Performing Organization Address City/[facility]/ZIP Co de Phone Number [facility] [address] [place] [address], [place] [phone] * Creatine kinase (08/07/2024 12:00 AM EST) Pathologist [facility] Total CK 48 22 - 269 unit/L LAB CHEMISTRY METHOD 08/07/2024 7:36 PM [facility] Blood Venous blood specimen / Unknown Venipuncture / Unknown 08/07/2024 08/07/2024 7:01 PM EST Mary ROE LAB BLOOD ORDERABLES Final Result Performing Organization Address City/[facility]/ZIP Co de Phone Number [facility] [address] [place] [address], [place] [phone] * (ABNORMAL) Comprehensive metabolic panel (08/07/2024 12:00 AM EST) [facility] Sodium 135 133 - 145 mmol/L LAB CHEMISTRY METHOD 08/30/2024 9:16 AM [facility] Potassium 4.6 3.5 - 5.5 mmol/L LAB CHEMISTRY METHOD 08/30/2024 9:16 AM [facility] Chloride 101 96 - 110 mmol/L LAB CHEMISTRY METHOD 08/30/2024 9:16 AM [facility] CO2 28 21 - 32 mmol/L LAB CHEMISTRY METHOD 08/30/2024 9:16 AM [facility] Anion Gap 6 3 - 11 LAB CHEMISTRY METHOD 08/30/2024 9:16 AM [facility] Glucose 252(H) 70 - 100 mg/dL LAB CHEMISTRY METHOD 08/30/2024 9:16 AM [facility] BUN 29(H) 5 - 25 mg/dL LAB CHEMISTRY METHOD 08/30/2024 9:16 AM [facility] Creatinine 1.00 0.70 - 1.30 mg/dL LAB CHEMISTRY METHOD 08/30/2024 9:16 AM [facility] eGFR 87 >=60 mL/min/1. 73m2 LAB CHEMISTRY METHOD 08/30/2024 9:16 AM [facility] Comment:Calculation based on the??Chronic Kidney Disease Epidemiology Collaboration (CKD-EPI) equation refit??without adjustment for race. BUN/Creatinine Ratio 29.0 LAB CHEMISTRY METHOD 08/30/2024 9:16 AM [facility] Calcium 9.5 8.5 - 10.5 mg/dL LAB CHEMISTRY METHOD 08/30/2024 9:16 AM [facility] AST (SGOT) 14 10 - 42 unit/L LAB CHEMISTRY METHOD 08/30/2024 9:16 AM [facility] ALT (SGPT) 22 10 - 60 unit/L LAB CHEMISTRY METHOD 08/30/2024 9:16 AM [facility] Alkaline Phosphatase 82 42 - 121 unit/L LAB CHEMISTRY METHOD 08/30/2024 9:16 AM [facility] Total Protein 7.4 6.0 - 8.0 g/dL LAB CHEMISTRY METHOD 08/30/2024 9:16 AM [facility] Albumin 3.7 3.2 - 5.0 g/dL LAB CHEMISTRY METHOD 08/30/2024 9:16 AM [facility] Total Bilirubin 0.2 0.0 - 1.4 mg/dL LAB CHEMISTRY METHOD 08/30/2024 9:16 AM [facility] Blood Venous blood specimen / Unknown Venipuncture / Unknown 08/07/2024 08/07/2024 7:01 PM EST us Mary ROE LAB BLOOD ORDERABLES Edite d Result - Final [facility] [address] [place] [address], documented in this encounter Visit Diagnoses Diagnosis Obesity, unspecified documented in this encounter Care Teams Clinical Appeals Reviewer Relationship Specialty Start Date End Date Vicenta Nielsen FNP [address] [place] [address] PCP - General 05/26/24 documented as of this encounter
--- OUTSIDE RECORDS SUMMARY | 2025-01-26 14:02 | XMS_ITS | Encounter Summary ---
Author Organization [employer] Address [address] [facility] 7t [place] [address] Care Team Providers Care Director Of Conservation Name Role Phone Valery Berrios MD Primary Care Provider Vicenta Nielsen NP Primary Care Provider [phone] Reason for Visit * Reason Onset Date Comments pt1 03/03/2023 Encounter Details Date Type Department Care Team (Late st Contact Info) Description 03/03/2023 Telephone [facility] MEDICINE [address] [place] [address] Valery Berrios MD 505 [facility] [place] [phone] pt1 Social History Tobacco Use Types Packs/Day [...] Date: every wednesday Time: 10 am address: [address] [place] [address] [place] [address] specialty: # visits: cafeteria director: no Wheelchair: cane Date: Time: address: [address] [place] [address] specialty: # visits: cafeteria director: no Wheelchair: cane documented in this encounter Plan of Treatment Upcoming Encounters Date Type Department Care Team (Late st Contact Info) Description 02/09/2025 11:15 AM EDT Office Visit [facility] MEDICINE [address] [place], [place] [phone] Vicenta Nielsen NP [address] [place], [place] documented as of this encounter Visit Diagnoses Not on filedocumented in this encounter Additional Health Concerns Assessment Noted Time PHQ-9 Depression Total Score: 0 10/20/19 23 2:41 PM EST documented as of this encounter Care Teams Director Of Conservation Relationship Specialty Start Date End Date Valery Berrios MD [address] [place] [address] PCP - General Internal Medicine 12/01/18 12/21/23 Vicenta Nielsen NP [address] [place] [address] PCP - General Family Medicine 12/22/23 [employer] 04/29/24 abigail [email or web address] Plastic Frame InserterMolecular Pathologist 10/18/24 documented as of this encounter
--- OUTSIDE RECORDS SUMMARY | 2025-01-26 14:02 | XMS_ITS | Encounter Summary ---
Author Organization [employer] Address [address] [place] [address] 7t [place] [address] Care Team Providers Care Track Manager Name Role Phone Vicenta Nielsen NP Primary Care Provider [phone] Reason for Visit * Reason Onset Date Comments PT1 05/29/2024 Encounter Details Date Type Department Care Team ([facility] st Contact Info) Description 05/29/2024 Telephone [facility] MEDICINE [address] [place], [place] [phone] Vicenta Nielsen NP [address] [place] [address] PT1 Social History Tobacco Use Types Packs/Day [...] PM EDT Tc from pt requesting for [address] [place] [address] PT1 to be modified for Yes 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 documented in this encounter Plan of Treatment Upcoming Encounters Date Type Department Care Team (Late st Contact Info) Description 02/09/2025 11:15 AM EDT Office Visit [facility] MEDICINE [address] [place] [address] Vicenta Nielsen NP [address] [place] [address] documented as of this encounter Visit Diagnoses Not on filedocumented in this encounter Additional Health Concerns Assessment Noted Time PHQ-9 Depression Total Score: 5 01/04/20 10:57 AM EDT documented as of this encounter Care Teams Track Manager Relationship Specialty Start Date End Date Vicenta Nielsen NP [address] [place] [address] PCP - General Family Medicine 12/22/23 [employer] 04/29/24 abigail mcneill Intermediate DesignerDoweler 10/18/24 documented as of this encounter
--- OUTSIDE RECORDS SUMMARY | 2025-01-26 14:02 | XMS_ITS | Encounter Summary ---
Author Organization [employer] Address [address] [place] [address] Care Team Providers Care Diesel Mechanic Name Role Phone Valery Berrios MD Primary Care Provider Vicenta Nielsen NP Primary Care Provider [phone] Encounter Details Date Type Department Care Team (Late st Contact Info) Description 03/24/2023 Abstract [facility] MEDICINE [address] [place] [address] Valery Berrios MD [address] [place] [address] Social History Tobacco Use Types Packs/Day Years [...] Description 02/09/2025 11:15 AM EDT Office Visit [facility] MEDICINE [address] [place] [address] Vicenta Nielsen NP [address] [place], [place] [phone] documented as of this encounter Visit Diagnoses Not on filedocumented in this encounter Additional Health Concerns Assessment Noted Time PHQ-9 Depression Total Score: 0 10/20/19 23 2:41 PM EST documented as of this encounter Care Teams Diesel Mechanic Relationship Specialty Start Date End Date Valery Berrios MD [address] [place] [address] PCP - General Internal Medicine 12/01/18 12/21/23 Vicenta Nielsen NP [address] [place] [address] PCP - General Family Medicine 12/22/23 [employer] 04/29/24 abigail [email or web address] Airline Ticket AgentMechanic Driver 10/18/24 documented as of this encounter
--- OUTSIDE RECORDS SUMMARY | 2025-01-26 14:02 | XMS_ITS | Encounter Summary ---
Author Organization [employer] Address [address] [place] [address] 7 [place] [address] Care Team Providers Care Care Worker Name Role Phone Valery Berrios MD Primary Care Provider [phone] Vicenta Nielsen NP Primary Care Provider [phone] Reason for Visit * Reason Onset Date Comments PT1 11/18/2022 Encounter Details Date Type Department Care Team ([facility] st Contact Info) Description 11/18/[address] [facility] MED & PEDS [address] [place] [address] Valery Berrios MD [address] [place] [address] PT1 Social History Tobacco Use Types Packs/Day [...] from pt requesting for a PT1 Location: [address] [place] [address] Specialty: All appts Time: n/a Date: n/a Scheduling Assistant: n/a Does require a cane. Pt states previous PT1 will on December 09, 2022 If any question please contact pt at [phone] documented in this encounter Plan of Treatment Upcoming Encounters Date Type Department Care Team ([facility] Contact Info) Description 02/09/2025 11:15 AM EDT Office Visit [facility] MEDICINE [address] [place] [address] Vicenta Nielsen NP [address] [place] [address] documented as of this encounter Visit Diagnoses Not on filedocumented in this encounter Additional Health Concerns Assessment Noted Time PHQ-9 Depression Total Score: 0 10/20/19 23 2:41 PM EST documented as of this encounter Care Teams Care Worker Relationship Specialty Start Date End Date Valery Berrios MD [address] [place] [address] PCP - General Internal Medicine 12/01/18 12/21/23 Vicenta Nielsne NP [address] [place] [address] PCP - General Family Medicine 12/22/23 [employer] 04/29/24 abigail mcneill Window TinterInternational Bank Manager 10/18/24 documented as of this encounter
--- OUTSIDE RECORDS SUMMARY | 2025-01-26 14:02 | XMS_ITS | Encounter Summary ---
Author Organization [employer] Address [address] [place] [address] Street 7t [place] [address] Care Team Providers Care Case Manager Specialist Name Role Phone Vicenta Nielsen DEADENER Primary Care Provider [phone] Reason for Visit * Reason Onset Date Comments Nurse Triage 08/01/2024 Encounter Details Date Type Department Care Team ([facility] st Contact Info) Description 08/01/2024 Telephone [facility] MEDICINE [address] [place] [address] Vicenta Nielsen NP [address] [place] [address] Nurse Triage Social History Tobacco Use Types [...] encounter Miscellaneous Notes * Telephone Encounter - iHlda Maldonado RN - 08/01/2024 11:32 AM EDT [...] amputation. Pt offered to seek care at [facility]. Pt declines states will have [facility] call tomorrow with update on what area looks like based on their assessment. Reviewed home care advise, ER precautions and reasons to call back. Reviewed [facility] operating hours and that wait times vary. [...] Description 02/09/2025 11:15 AM EDT Office Visit [facility] MEDICINE [address] [place] [address] Vicenta Nielsen NP [address] [place] [address] documented as of this encounter Visit Diagnoses Not on filedocumented in this encounter Additional Health Concerns Assessment Noted Time PHQ-9 Depression Total Score: 7 07/25/20 24 9:24 AM EDT documented as of this encounter Care Teams Case Manager Specialist Relationship Specialty Start Date End Date Vicenta Nielsen NP [address] [place] [address] PCP - General Family Medicine 12/22/23 [employer] 04/29/24 abigail mcneill Medical Art TherapistRf Engineer 10/18/24 documented as of this encounter
--- OUTSIDE RECORDS SUMMARY | 2025-01-26 14:02 | XMS_ITS | Encounter Summary ---
Author Organization [employer] Address [address] [place] [address] 7 [place] [address] Care Team Providers Care Instructional Technology Coordinator Name Role Phone Valery Berrios MD Primary Care Provider [phone] Vicenta Nielsen NP Primary Care Provider [phone] Reason for Visit * Reason Onset Date Comments Ultrasound Status 11/18/2022 Encounter Details Date Type Department Care Team ([facility] st Contact Info) Description 11/18/2022 Telephone [facility] MED & PEDS [address] [place] [address] Valery Berrios MD [address] [place] [address] Ultrasound Status Social History Tobacco Use Types [...] good effect. Pt informed this RN checked [facility] and there is no dx of his complain. Pt advised letter cannot be written without appropriate dx and that pt can call [facility] back with the numberfor the urologist so that PCP's office can f/u with them to request notes and update dx. Pt also gave this RN the number to the methadone clinic to f/u. RN called [phone], phone recording statesnumber you have dialed is not in service. Pt agreed to call [facility] back with the number for the urologist. [...] understand him. States PCP may not understand Bulgarian or that he may just be being prejudice. Advised will send to PCP to review. Will call pt with response. Pt agrees. * Telephone Encounter - Gonzalez Burciaga - 11/18/2022 3:34 PM EST Tc from pt requesting Ultrasound results that he had done last Wednesday,. Pt is also requesting a letter from provider, stating that pt has trouble urinating and could use swabs except urinating, If any question please contact the clinic at [phone] [facility]. Pt is also requesting for his Coordinator to give him a call back. If any questions please contact pt at [phone] documented in this encounter Plan of Treatment Upcoming Encounters Date Type Department Care Team (Late st Contact Info) Description 02/09/2025 11:15 AM EDT Office Visit [facility] MEDICINE [address] [place] [address] Vicenta Nielsen NP [address] [place] [address] documented as of this encounter Visit Diagnoses Not on filedocumented in this encounter Additional Health Concerns Assessment Noted Time PHQ-9 Depression Total Score: 0 10/20/19 23 2:41 PM EST documented as of this encounter Care Teams Instructional Technology Coordinator Relationship Specialty Start Date End Date Valery Berrios MD [address] [place] [address] PCP - General Internal Medicine 12/01/18 12/21/23 Vicenta Nielsen NP [address] [place] [address] PCP - General Family Medicine 12/22/23 [employer] [facility] [place] 04/29/24 abigail mcneill Automobile AppraiserGizzard Peeler 10/18/24 documented as of this encounter
--- OUTSIDE RECORDS SUMMARY | 2025-01-26 14:02 | XMS_ITS | Encounter Summary ---
Author Organization [employer] Address [address] [place] [address] Street 7t [place] [address] Care Team Providers Care Pharmacy Operations Coordinator Name Role Phone Vicenta Nielsen NP Primary Care Provider [phone] Reason for Visit * Reason Onset Date Comments Durable Medical Equipment 08/18/2024 Encounter Details Date Type Department Care Team ([facility] st Contact Info) Description 08/18/2024 Telephone [facility] MEDICINE [address] [place], [place] [phone] Vicenta Nielsen NP [address] [place] [address] Durable Medical Equipment Social History Tobacco Use [...] dx amputation * Telephone Encounter - Ophelia Hneson - 08/18/2024 1:36 PM EST Tc from pt requesting a callback due to pt needing a walker with seat he receive his prostatic leg and he feels insecure. Callback number [phone] documented in this encounter Plan of Treatment Upcoming Encounters Date Type Department Care Team (Late st Contact Info) Description 02/09/2025 11:15 AM EDT Office Visit [facility] MEDICINE [address] [place] [address] Vicenta Nielsen NP [address] [place] [address] documented as of this encounter Visit Diagnoses Not on filedocumented in this encounter Additional Health Concerns Assessment Noted Time PHQ-9 Depression Total Score: 7 07/25/20 9:24 AM EDT documented as of this encounter Care Teams Pharmacy Operations Coordinator Relationship Specialty Start Date End Date Vicenta Nielsen NP [address] [place] [address] PCP - General Family Medicine 12/22/23 [employer] 04/29/24 abigail mcenill Pressure Control SupervisorRadiological Equipment Specialist 10/18/24 documented as of this encounter
== END ==
LOC: HO.CARD 13:18
PROVIDERS: PCP Nurse Practitioner Family; Visit Provider Nurse Practitioner Family
DX: R01.1 Cardiac murmur, unspecified (principal)
CPT/HCPCS: 93306

== ENCOUNTER → 2025-01-26 13:25 | Outpatient (BNV) | payer MEDICAID, SELFPAY | PROVIDERS: PCP Nurse Practitioner Family; Visit Provider Internal Medicine | DX: I35.0 Nonrheumatic aortic (valve) stenosis (principal); I34.81 Nonrheumatic mitral (valve) annulus calcification; I34.0 Nonrheumatic mitral (valve) insufficiency | CPT/HCPCS: 93306 ==

== ENCOUNTER 2025-01-31 14:06 | Outpatient (AMB) | payer MEDICAID, SELFPAY ==
--- NOTE | 2025-01-31 14:14 | MHC.OFFVIS ---
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 Allergies bee venom protein (honey bee) Allergy (Severe, Verified 12/15/24 10:00) Anaphylaxis erythromycin base Allergy (Intermediate, Verified 12/15/24 10:00) Rash Iodinated Contrast Media Adverse Reaction (Intermediate, Verified 12/15/24 10:00) Shortness of Breath Medication List - Last Reconciled 01/31/25 by Oleg Denny MD atorvastatin 20 mg PO BEDTIME blood sugar diagnostic (FreeStyle Lite Strips) As directed 4 times a day blood-glucose,steam plant records clerk,cont (FreeStyle Oumar 3 Capron) As directed blood-glucose sensor (FreeStyle Oumar 3 Sensor device) As directed doxycycline hyclate 100 mg PO BID 30 days insulin degludec (Tresiba FlexTouch U-100 insulin) 40 units (0.4 mL) subcut BEDTIME insulin lispro 2 - 17 units subcut TID lancets (TRUEplus Lancets) As directed 4 times a day methadone (Methadone Intensol) 87 mg PO DAILY pen needle, diabetic (Easy Touch) As directed 5 times a day polyethylene glycol 3350 17 grams PO DAILY HPI Comments Details: Bam has been referred for cardiac evaluation. It seems that he has a history of longstanding diabetes. According to him, he was admitted to [facility] last year where he was told to have endocarditis. He describes what seems to be a GABBY procedure. However, we do not have the actual reports. Otherwise, he has a history of right lower extremity amputation. From the cardiac standpoint, no known coronary disease myocardial infarction or cardiomyopathy. He describes the random episodes of palpitations. He states that he has got pain essentially all over the body. But however, no specific exertional angina or rest anginal-type symptoms. Difficult to assess because of his generalized pain. He is also in a wheelchair which makes assessment even more difficult. During physical activities, he does describe some shortness of breath and fatigue. No clear angina. [facility] Medical History (Updated 01/31/25 @ 15:00 by Oleg Denny MD) Type 2 diabetes mellitus with insulin therapy Diabetes Osteomyelitis Sepsis History of opioid abuse Hx of hepatitis C Amputated toe Osteomyelitis of great toe of right foot Uncontrolled diabetes mellitus with hyperglycemia Osteomyelitis Asthma Cellulitis High cholesterol Kidney stones HTN (hypertension) Surgical History History of amputation of left foot through metatarsal bone History of right lower limb amputation History of lithotripsy Family History (Updated 01/31/25 @ 14:27 by Radha Johnson) Mother Stroke Dementia Father Diabetes Social History (Updated 01/31/25 @ 14:29 by Radha Johnson) Household Members: Family Housing: House Do you presently have visiting nurse or other home services: Yes ([facility] and [facility]) Alcohol intake: current Alcohol intake frequency: holidays/special occasions only Patient Tobacco Use Status: Former Tobacco user Tobacco use type: Cigarette Second Hand Smoke Exposure: No Substance Use Type: Crack/Cocaine and Marijuana Advance Directives Date on File: 07/12/24 service: No Current occupational status: unemployed Review of Systems Const Denies weakness ENT Denies dizziness Card Reports chest pain, Denies chest pain with activity, Denies syncope, Denies rapid heart rate, Denies pedal edema, Denies edema, Denies leg edema, Denies lightheadedness, Reports palpitations, Reports dyspnea, Denies dyspnea on exertion and Denies orthopnea Resp Denies cough, Reports dyspnea and Denies dyspnea on exertion GI Denies hematochezia and Denies change in stool character Musc Denies abnormal gait, Denies muscle cramps, Denies muscle weakness, Denies numbness, Denies radiating pain into limb and Denies tingling Neuro Denies abnormal gait, Denies dizziness, Denies syncope, Denies numbness, Denies tingling and Denies weakness Endo Reports palpitations Physical Exam Vital Signs: Last Vital Signs Pulse 88 01/31/25 14:15 BP 138/70 01/31/25 14:15 Const General: comfortable and no acute distress Orientation/consciousness: patient oriented x3 HEENT Other: Unremarkable Head: Yes normal to inspection Neck Neck: Yes normal visual inspection Chest Chest palpation & inspection: normal inspection of the chest Resp Auscultation: clear to auscultation bilaterally Cardio Palpation: normal PMI Heart sounds: S1 normal heart sound present, S2 normal heart sound present, no gallops, Murmur heart sound present systolic II/ and at the right sternal border and no rubs GI Palpation (GI): Soft to palpation Back/Spine/Pelvis Other: unremarkable Skin General skin exam: no rashes or lesions noted Neuro General: patient oriented x3 Extrem Other: Right below-knee amputation. Left leg has dressing General: Yes normal to inspection Psych Mental Status: mental status grossly normal Office Procedures EKG Details: EKG with sinus rhythm at 88/Min; no significant ST-T changes and otherwise unremarkable. [place]. 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 In the recent echocardiogram, LVEF difficult to assess but thought to be > 50%. No significant valvular findings. Symptoms are extremely atypical but he is at increased risk for coronary disease because of longstanding diabetes. We will plan on pharmacological stress perfusion imaging study for further evaluation. As he is in a wheelchair, we will not be able to exercise on the treadmill. With regard to the question of endocarditis history, we will need to get records from [facility] regarding GABBY. We discussed in detail about symptoms of heart attack and if any such occurrence, advised him to contact emergency help immediately. He understands that. We will follow up after the stress testing is completed. Discussion Notes I discussed with the patient the need for a stress test to evaluate potential cardiac issues, such as blockages that may be causing his symptoms. We reviewed the importance of obtaining his medical records from [facility] to provide a comprehensive understanding of past cardiac findings. Management of his hypertension and diabetes was discussed, emphasizing consistent monitoring to prevent exacerbation of cardiac symptoms. Follow-up was agreed upon post-evaluation and adjustment of the patient's treatment plan as necessary, ensuring comprehensive care coordination. Patient was informed and verbally consented to the use of an ambient scribe for clinic note documentation during this visit. 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 - Continue current management for essential hypertension and monitor blood pressure regularly. - Review and manage diabetes. - Await feedback from our office regarding the review of previous hospital records. - Follow up as scheduled for assessment of test outcomes and management review. - Contact emergency medical services if experiencing severe chest pain or significant symptoms. Coding Level of Care Code New Pt Level 4 (71216) Complex EM visit Add On G2211 Diagnoses Type 2 diabetes mellitus with insulin therapy E11.9; Z79.4 History of endocarditis Z86.79 Atypical chest pain R07.89 CPT Codes EKG - CPT: 86569-Almxitugigcysestg, Complete ([id number])
[2025-01-31 14:15] VITALS: BP 138/70; PULSE 88
--- OUTSIDE RECORDS SUMMARY | 2025-01-31 15:20 | XMS_ITS | Encounter Summary ---
Author Organization [employer] Address [address] [place] [address] Street 7t [place] [address] Care Team Providers Care District Manager Primary Care Sales Name Role Phone Vicenta Nielsen NP Primary Care Provider [phone] Reason for Visit * Reason Onset Date Comments Call Back Request 03/10/2024 Encounter Details Date Type Department Care Team ([facility] st Contact Info) Description 03/10/2024 Telephone [facility] MEDICINE [address] [place], [place] [phone] Vicenta Nielsen NP [address] [place] [address] Call Back Request Social History Tobacco Use [...] scanned in chart. Please contact pt at [phone] documented in this encounter Plan of Treatment Upcoming Encounters Date Type Department Care Team (Late st Contact Info) Description 02/09/2025 11:15 AM EDT Office Visit [facility] MEDICINE [address] [place] [address] Vicenta Nielsen NP [address] [place] [address] documented as of this encounter Visit Diagnoses Not on filedocumented in this encounter Additional Health Concerns Assessment Noted Time PHQ-9 Depression Total Score: 5 01/04/20 24 10:57 AM EDT documented as of this encounter Care Teams District Manager Primary Care Sales Relationship Specialty Start Date End Date Vicenta Nielsen NP [address] [place] [address] PCP - General Family Medicine 12/22/23 [employer] 04/29/24 abigail mcneill Accounts Payable AnalystSchool Of Nursing Director 10/18/24 documented as of this encounter
--- OUTSIDE RECORDS SUMMARY | 2025-01-31 15:20 | XMS_ITS | Encounter Summary ---
Author Organization [employer] Address [address] [place] [address] 7 [place] [address] Care Team Providers Care Field Automobile Adjuster Name Role Phone Valery Berrios MD Primary Care Provider [phone] Vicenta Nielsen NP Primary Care Provider [phone] Reason for Visit * Reason Onset Date Comments PT1 07/16/2023 Encounter Details Date Type Department Care Team ([facility] st Contact Info) Description 07/16/2023 Telephone [facility] MED & PEDS [address] [place] [address] Valery Berrios MD [address] [place], [place] Christian[place] PT1 Social History Tobacco Use [...] Date: n/a Time: n/a Visits: n/a Address: [address] [place] [address] Facility: [facility] Chair: n/a Shredder Tender Peat Needed: no documented in this encounter Plan of Treatment Upcoming Encounters Date Type Department Care Team (Late st Contact Info) Description 02/09/2025 11:15 AM EDT Office Visit [facility] MEDICINE [address] [place] [address] Vicenta Nielsen NP [address] [place] [address] documented as of this encounter Visit Diagnoses Not on filedocumented in this encounter Additional Health Concerns Assessment Noted Time PHQ-9 Depression Total Score: 0 10/20/19 23 2:41 PM EST documented as of this encounter Care Teams Field Automobile Adjuster Relationship Specialty Start Date End Date Valery Berrios MD [address] [place] [address] PCP - General Internal Medicine 12/01/18 12/21/23 Vicenta Nielsen NP [address] [place] [address] PCP - General Family Medicine 12/22/23 [employer] 04/29/24 abigail mcneill Emt IntermediateFireproof Door Maker 10/18/24 documented as of this encounter
--- OUTSIDE RECORDS SUMMARY | 2025-01-31 15:20 | XMS_ITS | Encounter Summary ---
Author Organization [employer] Address [address] [place] [address] Street 7t [place] [address] Care Team Providers Care Semi Automatic Sewing Machine Operator Name Role Phone Vicenta Nielsen NP Primary Care Provider [phone] Reason for Visit * Reason Onset Date Comments Medication Question 01/23/2025 Encounter Details Date Type Department Care Team ([facility] st Contact Info) Description 01/23/2025 Telephone [facility] MEDICINE [address] [place], [place] [phone] Vicenta Nielsen NP [address] [place] [address] Medication Question Social History Tobacco Use Types [...] Medications needing refill : [facility]plus Lancets [facility] to: [facility] [place], [place] - [address] [facility] Contact at [phone] documented in this encounter Plan of Treatment Upcoming Encounters Date Type Department Care Team (Late st Contact Info) Description 02/09/2025 11:15 AM EDT Office Visit [facility] MEDICINE [address] [place] [address] Vicenta Nielsen NP [address] [place] [address] documented as of this encounter Visit Diagnoses Diagnosis Type 2 diabetes mellitus without complication, with long-term current use of insulin ([facility]) documented in this encounter Additional Health Concerns Assessment Noted Time PHQ-9 Depression Total Score: 7 07/25/20 24 9:24 AM EDT documented as of this encounter Care Teams Semi Automatic Sewing Machine Operator Relationship Specialty Start Date End Date Vicenta Nielsen NP [address] [place] [address] PCP - General Family Medicine 12/22/23 [facility] [employer] 04/29/24 abigail mcneill Sand Mixer OperatorDrill Press Tender 10/18/24 documented as of this encounter
--- OUTSIDE RECORDS SUMMARY | 2025-01-31 15:20 | XMS_ITS | Clinical Summary ---
Author Organization [facility] Address [address] [place] [address] Care Team Providers Care Production Staff Worker Name Role Phone Vicenta Nielsen Primary Care Provider [phone] Allergies Active Allergy Reactions Criticality Noted Date [...] age to complete this topic Care Teams Production Staff Worker Relationship Specialty Start Date End Date Vicenta Nielsen [address] [place] [phone] PCP - General Family Medicine 05/26/24
--- OUTSIDE RECORDS SUMMARY | 2025-01-31 15:20 | XMS_ITS | Encounter Summary ---
Author Organization [employer] Address [address] 7[address] [place] [address] Care Team Providers Care Service Team Leader Name Role Phone Vicenta Nielsen NP Primary Care Provider Reason for Visit * Reason Comments Med Refill Encounter Details Date Type Department Care Team ([facility] st Contact Info) Description 01/25/2025 Refill [facility] MEDICINE [address] [place], [place] [phone] Vicenta Nielsen NP [address] [place] [address] Type 2 diabetes mellitus with hyperglycemia, with long-term current use of insulin ([facility]); Type 2 diabetes mellitus without complication, with long-term current use of insulin ([facility]) Social History Tobacco Use Types [...] Description 02/09/2025 11:15 AM EDT Office Visit [facility] MEDICINE [address] [place] [address] Vicenta Nielsen NP [address] [place] [address] documented as of this encounter Visit Diagnoses Diagnosis Type 2 diabetes mellitus with hyperglycemia, with long-term current use of insulin ([facility]) Type 2 diabetes mellitus without complication, with long-term current use of insulin ([facility]) documented in this encounter Additional Health Concerns Assessment Noted Time PHQ-9 Depression Total Score: 7 07/25/20 24 9:24 AM EDT documented as of this encounter Care Teams Service Team Leader Relationship Specialty Start Date End Date Vicenta Nielsen NP [address] [place] [address] PCP - General Family Medicine 12/22/23 [employer] 04/29/24 abigail mcneill Efficiency ClerkReed Polisher 10/18/24 documented as of this encounter
--- OUTSIDE RECORDS SUMMARY | 2025-01-31 15:20 | XMS_ITS | Encounter Summary ---
Author Organization [employer] Address [address] [place] [address] [place] [address] Care Team Providers Care Serology Technician Name Role Phone Valery Berrios MD Primary Care Provider [phone] Vicenta Nielsen NP Primary Care Provider [phone] Reason for Visit * Reason Onset Date Comments Forms/questionnaires 09/17/2022 Encounter Details Date Type Department Care Team (Late Contact Info) Description 09/17/2022 Telephone [facility] CHC MED & PEDS [address] [place] [address] Valery Berrios MD 505 [place] [address] Forms/questionnaires Social History Tobacco Use Types Packs/Day [...] Description 02/09/2025 11:15 AM EDT Office Visit [facility] MEDICINE [address] [place] [address] Vicenta Nielsen NP [address] [place] [address] documented as of this encounter Visit Diagnoses Not on filedocumented in this encounter Care Teams Serology Technician Relationship Specialty Start Date End Date Valery Berrios MD [address] [place] [address] PCP - General Internal Medicine 12/01/18 12/21/23 Vicenta Nielsen NP [address] [place] [address] PCP - General Family Medicine 12/22/23 [employer] 04/29/24 abigail [email or web address] Brim Stretching Machine OperatorLabel Press Operator 10/18/24 documented as of this encounter
--- OUTSIDE RECORDS SUMMARY | 2025-01-31 15:20 | XMS_ITS | Encounter Summary ---
Author Organization [employer] Address [address] [place] [address] 7 [place] [address] Care Team Providers Care Clinical Nursing Professor Name Role Phone Valery Berrios MD Primary Care Provider [phone] Vicenta Nielsen NP Primary Care Provider [phone] Encounter Details Date Type Department Care Team ([facility] st Contact Info) Description 11/18/2023 Orders Only [facility] CHC MED & PEDS [address] [place] [address] Valery Berrios MD [address] [facility] [place] [address] Benign hypertension (Primary Dx) Social History Tobacco Use Types Packs/Day Years Used Date Smoking Tobacco: Every Day Cigarettes Passive Smoke Exposure: Current Smokeless Tobacco: Never Depression Answer Date Recorded Patient Health Questionnaire-9 Score 0 10/20/2022 Housing Stability Answer Date Recorded What is your housing situation today? I do not have housing (Staying with others, in a hotel, in a half-way, living outside on the street, on a [...] Description 02/09/2025 11:15 AM EDT Office Visit [facility] MEDICINE [address] [place] [address] Vicenta Nielsen NP [address] [place], [place] [phone] Scheduled Orders Name Type Priority Associated Diagnoses [...] Blood Count 7.8 4.8 - 10.8 X10*3/uL [facility] Red Blood Count 3.54(L) 4.60 - 5.80 X10*6/uL [facility] Hemoglobin 9.5(L) 14.0 - 18.0 g/dl [facility] Hematocrit 29.7(L) 42.0 - 52.0 % [facility] Mean Corpuscular Volume 83.9 80.0 - 98.0 fL [facility] Mean Corpuscular Hemoglobin 26.8(L) 27.0 - 33.0 pg [facility] Mean Corpuscular HGB Conc 32.0 31.0 - 36.0 g/dl [facility] Red Cell Distribution Width 14.0 11.0 - 16.0 % [facility] Platelet Count 236 160 - 400 X10*3/uL [facility] Mean Platelet Volume 11.3 9.4 - 12.4 fL [facility] Neutrophils Percent Auto 75.3(H) 45 - 73 % [facility] Imm Gran Pct Auto 0.4 0.0 - 0.4 % [facility] Lymphocytes Percent Auto 12.9(L) 20 - 40 % [facility] Monocytes Percent Auto 9.7 2 - 11 % [facility] Eosinophils Percent Auto 1.2 0 - 4 % [facility] Basophils Percent Auto 0.5 0 - 2 % [facility] NRBC Pct Auto 0.0 0.0 - 0.2 /100WBC [facility] Neutrophils Absolute Auto 5.9 2.0 - 8.3 x10*3/uL [facility] Imm Gran Abs Auto 0.03 0.00 - 0.03 X10*3/uL [facility] Lymphocytes Absolute Auto 1.0(L) 1.2 - 4.9 X10*3/uL [facility] Monocytes Absolute Auto 0.8 0.1 - 1.2 X10*3/uL [facility] Eosinophils Absolute Auto 0.1 0.0 - 0.4 X10*3/uL [facility] Basophils Absolute Auto 0.0 0.0 - 0.2 X10*3/uL [facility] NRBC Abs Auto 0.000 0.0 - 0.012 X10*3/uL [facility] Blood Venous blood specimen / Unknown 05/23/2024 11:38 AM EDT 05/23/2024 1:31 PM EDT Valery Berrios MD LAB BLOOD ORDERABLES Final Result [facility] [address] [place] [address] [phone] documented in this encounter Visit Diagnoses Diagnosis Benign hypertension- Primary Essential hypertension, benign documented in this encounter Additional Health Concerns Assessment Noted Time PHQ-9 Depression Total Score: 0 10/20/19 23 2:41 PM EST documented as of this encounter Care Teams Clinical Nursing Professor Relationship Specialty Start Date End Date Valery Berrios MD 505 [place] [address] PCP - General Internal Medicine 12/01/18 12/21/23 Vicenta Nielsen NP [address] [place] [address] PCP - General Family Medicine 12/22/23 [employer] 04/29/24 abigail [email or web address] Neurosurgical Physician AssistantTop Frame Fitter 10/18/24 documented as of this encounter
--- OUTSIDE RECORDS SUMMARY | 2025-01-31 15:20 | XMS_ITS | Encounter Summary ---
Author Organization [employer] Address [address] [place] [address] 7t [place] [address] Care Team Providers Care Oracle Technical Developer Name Role Phone Vicenta Nielsen NP Primary Care Provider [phone] Reason for Visit * Reason Onset Date Comments PT1 01/18/2025 Encounter Details Date Type Department Care Team ([facility] st Contact Info) Description 01/18/2025 Telephone [facility] MEDICINE [address] [place], [place] [phone] Vicenta Nielsen NP 230 [place] [address] PT1 Social History Tobacco Use Types Packs/Day [...] Y/N: Yes Provider name or facility name: [address] [place] [address] Escort needed: Y/N: Yes door to door services Do you have a wheelchair: Y/N: Yes If yes- Manual or electric: electric Visits: (10x monthly) documented in this encounter Plan of Treatment Upcoming Encounters Date Type Department Care Team (Late st Contact Info) Description 02/09/2025 11:15 AM EDT Office Visit [facility] MEDICINE [address] [place] [address] Vicenta Nielsen NP [address] [place] [address] documented as of this encounter Visit Diagnoses Not on filedocumented in this encounter Additional Health Concerns Assessment Noted Time PHQ-9 Depression Total Score: 7 07/25/20 24 9:24 AM EDT documented as of this encounter Care Teams Oracle Technical Developer Relationship Specialty Start Date End Date Vicenta Nielsen NP [address] [place] [address] PCP - General Family Medicine 12/22/23 [facility] [employer] 04/29/24 abigail [email or web address] Slab InstallerManager Hospice 10/18/24 documented as of this encounter
--- OUTSIDE RECORDS SUMMARY | 2025-01-31 15:20 | XMS_ITS | Encounter Summary ---
Author Organization [facility] [place] [address] Care Team Providers Care Molasses And Caramel Operator Name Role Phone Vicenta Nielsen RAZ Primary Care Provider [phone] Encounter Details Date Type Department Care Team (Late st Contact Info) Description 08/07/2024 Lab Requisition [facility] [address] [facility] [place] [address] Mary Song PA [address] [address] Obesity, unspecified Social History Tobacco Use Types [...] CBC auto differential (08/07/2024 12:00 AM EST) [facility] WBC 5.4 4.8 - 10.8 K/mcL LAB HEMETOLOGY METHOD 08/07/2024 7:14 PM [facility] RBC 3.80(L) 4.50 - 5.50 M/mcL LAB HEMETOLOGY METHOD 08/07/2024 7:14 PM [facility] Hemoglobin 9.9(L) 13.5 - 17.5 g/dL LAB HEMETOLOGY METHOD 08/07/2024 7:14 PM [facility] Hematocrit 31.4(L) 42.0 - 54.0 % LAB HEMETOLOGY METHOD 08/07/2024 7:14 PM [facility] MCV 83.7 79.0 - 98.0 FL LAB HEMETOLOGY METHOD 08/07/2024 7:14 PM [facility] MCH 26.4(L) 27.0 - 32.0 pcg LAB HEMETOLOGY METHOD 08/07/2024 7:14 PM [facility] MCHC 31.5(L) 32.0 - 37.0 g/dL LAB HEMETOLOGY METHOD 08/07/2024 7:14 PM [facility] RDW 14.6 11.0 - 15.0 % LAB HEMETOLOGY METHOD 08/07/2024 7:14 PM [facility] Platelets 186 130 - 400 K/mcL LAB HEMETOLOGY METHOD 08/07/2024 7:14 PM [facility] MPV 12.0(H) 7.0 - 11.0 FL LAB HEMETOLOGY METHOD 08/07/2024 7:14 PM [facility] NRBC 0.0 <1.0 % LAB HEMETOLOGY METHOD 08/07/2024 7:14 PM [facility] NRBC Absolute 0.00 <0.10 K/mcL LAB HEMETOLOGY METHOD 08/07/2024 7:14 PM [facility] Neutrophils Relative 59.9 % LAB HEMETOLOGY METHOD 08/07/2024 7:14 PM [facility] Lymphocytes Relative 25.9 % LAB HEMETOLOGY METHOD 08/07/2024 7:14 PM [facility] Monocytes Relative 9.6 % LAB HEMETOLOGY METHOD 08/07/2024 7:14 PM [facility] Eosinophils Relative 3.5 % LAB HEMETOLOGY METHOD 08/07/2024 7:14 PM [facility] Basophils Relative 0.9 % LAB HEMETOLOGY METHOD 08/07/2024 7:14 PM [facility] Immature Granulocytes Relative 0.2 % LAB HEMETOLOGY METHOD 08/07/2024 7:14 PM [facility] Neutrophils Absolute 3.26 1.50 - 7.00 K/mcL LAB HEMETOLOGY METHOD 08/07/2024 7:14 PM [facility] Lymphocytes Absolute 1.41 1.00 - 5.00 K/mcL LAB HEMETOLOGY METHOD 08/07/2024 7:14 PM [facility] Monocytes Absolute 0.52 0.20 - 1.00 K/mcL LAB HEMETOLOGY METHOD 08/07/2024 7:14 PM [facility] Eosinophils Absolute 0.19 0.00 - 0.50 K/mcL LAB HEMETOLOGY METHOD 08/07/2024 7:14 PM [facility] Basophils Absolute 0.05 0.00 - 0.20 K/mcL LAB HEMETOLOGY METHOD 08/07/2024 7:14 PM [facility] Immature Granulocytes Absolute 0.01 0.00 - 0.03 K/mcL LAB HEMETOLOGY METHOD 08/07/2024 7:14 PM EST [facility] Blood Venous blood specimen / Unknown Venipuncture / Unknown 08/07/2024 08/07/2024 7:01 PM EST Mary ROE LAB BLOOD ORDERABLES Final Result Performing Organization Address City/[facility]/ZIP Co de Phone Number [facility] [address] [place] [address], [place] [phone] * Creatine kinase (08/07/2024 12:00 AM EST) Pathologist [facility] Total CK 48 22 - 269 unit/L LAB CHEMISTRY METHOD 08/07/2024 7:36 PM [facility] Blood Venous blood specimen / Unknown Venipuncture / Unknown 08/07/2024 08/07/2024 7:01 PM EST Mary ROE LAB BLOOD ORDERABLES Final Result Performing Organization Address City/[facility]/ZIP Co de Phone Number [facility] [address] [place] [address], [place] [phone] * (ABNORMAL) Comprehensive metabolic panel (08/07/2024 12:00 AM EST) [facility] Sodium 135 133 - 145 mmol/L LAB CHEMISTRY METHOD 08/30/2024 9:16 AM [facility] Potassium 4.6 3.5 - 5.5 mmol/L LAB CHEMISTRY METHOD 08/30/2024 9:16 AM [facility] Chloride 101 96 - 110 mmol/L LAB CHEMISTRY METHOD 08/30/2024 9:16 AM [facility] CO2 28 21 - 32 mmol/L LAB CHEMISTRY METHOD 08/30/2024 9:16 AM [facility] Anion Gap 6 3 - 11 LAB CHEMISTRY METHOD 08/30/2024 9:16 AM [facility] Glucose 252(H) 70 - 100 mg/dL LAB CHEMISTRY METHOD 08/30/2024 9:16 AM [facility] BUN 29(H) 5 - 25 mg/dL LAB CHEMISTRY METHOD 08/30/2024 9:16 AM [facility] Creatinine 1.00 0.70 - 1.30 mg/dL LAB CHEMISTRY METHOD 08/30/2024 9:16 AM [facility] eGFR 87 >=60 mL/min/1. 73m2 LAB CHEMISTRY METHOD 08/30/2024 9:16 AM [facility] Comment:Calculation based on the??Chronic Kidney Disease Epidemiology Collaboration (CKD-EPI) equation refit??without adjustment for race. BUN/Creatinine Ratio 29.0 LAB CHEMISTRY METHOD 08/30/2024 9:16 AM [facility] Calcium 9.5 8.5 - 10.5 mg/dL LAB CHEMISTRY METHOD 08/30/2024 9:16 AM [facility] AST (SGOT) 14 10 - 42 unit/L LAB CHEMISTRY METHOD 08/30/2024 9:16 AM [facility] ALT (SGPT) 22 10 - 60 unit/L LAB CHEMISTRY METHOD 08/30/2024 9:16 AM [facility] Alkaline Phosphatase 82 42 - 121 unit/L LAB CHEMISTRY METHOD 08/30/2024 9:16 AM [facility] Total Protein 7.4 6.0 - 8.0 g/dL LAB CHEMISTRY METHOD 08/30/2024 9:16 AM [facility] Albumin 3.7 3.2 - 5.0 g/dL LAB CHEMISTRY METHOD 08/30/2024 9:16 AM [facility] Total Bilirubin 0.2 0.0 - 1.4 mg/dL LAB CHEMISTRY METHOD 08/30/2024 9:16 AM [facility] Blood Venous blood specimen / Unknown Venipuncture / Unknown 08/07/2024 08/07/2024 7:01 PM EST us Mary ROE LAB BLOOD ORDERABLES Edite d Result - Final [facility] [address] [place] [address], documented in this encounter Visit Diagnoses Diagnosis Obesity, unspecified documented in this encounter Care Teams Molasses And Caramel Operator Relationship Specialty Start Date End Date Vicenta Nielsen FNP [address] [place] [address] PCP - General 05/26/24 documented as of this encounter
--- OUTSIDE RECORDS SUMMARY | 2025-01-31 15:20 | XMS_ITS | Encounter Summary ---
Author Organization [employer] Address [address] 7[address] [place] [address] Care Team Providers Care Tag Machine Operator Name Role Phone Vicenta Nielsen NP Primary Care Provider [phone] Reason for Visit * Reason Comments Med Refill Encounter Details Date Type Department Care Team ([facility] Contact Info) Description 01/30/2025 Refill [facility] CHC MED & PEDS [address] [place] [address] Vicenta Nielsen NP [address] [place] [address] Social History Tobacco Use Types Packs/Day Years [...] Description 02/09/2025 11:15 AM EDT Office Visit [facility] MEDICINE [address] [place] [address] Vicenta Nielsen NP [address] [place] [address] documented as of this encounter Visit Diagnoses Not on filedocumented in this encounter Additional Health Concerns Assessment Noted Time PHQ-9 Depression Total Score: 7 07/25/20 9:24 AM EDT documented as of this encounter Care Teams Tag Machine Operator Relationship Specialty Start Date End Date Vicenta Nielsen NP [address] [place] [address] PCP - General Family Medicine 12/22/23 [employer] 04/29/24 abigail mcneill Geophysical Laboratory SupervisorRumper 10/18/24 documented as of this encounter
--- OUTSIDE RECORDS SUMMARY | 2025-01-31 15:20 | XMS_ITS | Encounter Summary ---
Author Organization [employer] Address [address] [place] [address] 7t [place] [address] Care Team Providers Care Armhole Baster Jumpbasting Name Role Phone Vicenta Nielsen NP Primary Care Provider [phone] Reason for Visit * Reason Onset Date Comments PT-1 12/01/2024 Encounter Details Date Type Department Care Team ([facility] st Contact Info) Description 12/01/2024 Telephone [facility] MEDICINE [address] [place], [place] [phone] Vicenta Nielsen NP [address] [place] [address] PT-1 Social History Tobacco Use Types Packs/Day [...] Status of prior message. Contact pt at [phone] * Telephone Encounter - Jacobo Ross - 12/01/2024 11:59 AM EST Patient calling requesting PT1 Home Address verified: Y/N: Yes Provider name or facility name: [address] [place] [address] Escort needed: Y/N: Yes Do you have a wheelchair: Y/N: Yes If yes- Manual or electric: Electric Visits: (amount of visits) ( x monthly, weekly, daily) 5 times a month documented in this encounter Plan of Treatment Upcoming Encounters Date Type Department Care Team (Late st Contact Info) Description 02/09/2025 11:15 AM EDT Office Visit [facility] MEDICINE [address] [place] [address] Vicenta Nielsen NP [address] [place] [address] documented as of this encounter Visit Diagnoses Not on filedocumented in this encounter Additional Health Concerns Assessment Noted Time PHQ-9 Depression Total Score: 7 07/25/20 24 9:24 AM EDT documented as of this encounter Care Teams Armhole Baster Jumpbasting Relationship Specialty Start Date End Date Vicenta Nielsen NP [address] [place] [address] PCP - General Family Medicine 12/22/23 [employer] 04/29/24 abigail mcneill Press And Blow Machine TenderBoiler Plant Worker 10/18/24 documented as of this encounter
--- OUTSIDE RECORDS SUMMARY | 2025-01-31 15:20 | XMS_ITS | Encounter Summary ---
Author Organization [employer] Address [address] [place] [address] 7 [place] [address] Care Team Providers Care Senior Safety Support Manager Name Role Phone Valery Berrios MD Primary Care Provider [phone] Vicenta Nielsen NP Primary Care Provider [phone] Encounter Details Date Type Department Care Team (Late st Contact Info) Description 10/30/2022 Abstract [facility] CHC MED & PEDS [address] [place] [address] Valery Berrios MD 505 [place] [address] Social History Tobacco Use Types Packs/Day Years [...] Office Visit [facility] MEDICINE [address] [place] [address] Vicenta Nielsen NP [address] [place] [address] documented as of this encounter Visit Diagnoses Not on filedocumented in this encounter Additional Health Concerns Assessment Noted Time PHQ-9 Depression Total Score: 0 10/20/19 23 2:41 PM EST documented as of this encounter Care Teams Senior Safety Support Manager Relationship Specialty Start Date End Date Valery Berrios MD [address] [place] [address] PCP - General Internal Medicine 12/01/18 12/21/23 Vicenta Nielsen NP [address] [place] [address] PCP - General Family Medicine 12/22/23 [employer] 04/29/24 abigail mcneill Efficiency EngineerNeurology Technician 10/18/24 documented as of this encounter
--- OUTSIDE RECORDS SUMMARY | 2025-01-31 15:20 | XMS_ITS | Encounter Summary ---
Author Organization [employer] Address [address] [facility] 7 [place] [address] Care Team Providers Care Senior Asp Net Developer Name Role Phone Valery Berrios MD Primary Care Provider [phone] Vicenta Nielsen NP Primary Care Provider [phone] Reason for Visit * Reason Onset Date Comments Call Back Request 11/17/2023 Encounter Details Date Type Department Care Team (Late st Contact Info) Description 11/17/2023 Telephone [facility] MEDICINE [address] [place] [address] Valery Berrios MD [address] [facility] [place] [phone] Call Back Request Social History Tobacco Use Types Packs/Day Years Used Date Smoking Tobacco: Every Day Cigarettes Passive Smoke Exposure: Current Smokeless Tobacco: Never Depression Answer Date Recorded Patient Health Questionnaire-9 Score 0 10/20/2022 Housing Stability Answer Date Recorded What is your housing situation today? I do not have housing (Staying with others, in a hotel, in a fci, living outside on the street, on a [...] on his potassium and iron. According to [facility] pharmacy, they do not have this on file. Dr. Berrios, is pt to be taking these 2 medications? If so he is in need of both sent to [facility] pharm. Pt also states he stopped taking the amlodipine because it made his legs swell, please DC in chart, he has been having high BP readings and will need something in replace of the amlodipine. Pt agrees to appt with PCP 11.23.23. Pt also states he moved to [place] and would like to transfer his care there. TP request sent on 10.14.23. Will wait for pt appt 11.23.23 to see what current PCP requests for f/u and go from there. * Telephone Encounter - Elmer Sykes - 11/17/2023 3:31 PM EST Tc from pt requesting call back from nurses to go over medication. Please contact pt at [phone]. documented in this encounter Plan of Treatment Upcoming Encounters Date Type Department Care Team (Late st Contact Info) Description 02/09/2025 11:15 AM EDT Office Visit [facility] MEDICINE [address] [place] [address] Vicenta Nielsen NP [address] [place] [address] documented as of this encounter Visit Diagnoses Not on filedocumented in this encounter Additional Health Concerns Assessment Noted Time PHQ-9 Depression Total Score: 0 10/20/19 23 2:41 PM EST documented as of this encounter Care Teams Senior Asp Net Developer Relationship Specialty Start Date End Date Valery Berrios MD [address] [place] [address] PCP - General Internal Medicine 12/01/18 12/21/23 Vicenta Nielsen NP [address] [place] [address] PCP - General Family Medicine 12/22/23 [employer] 04/29/24 abigail mcneill Remediation Project EngineerWater And Gas Helper 10/18/24 documented as of this encounter
--- OUTSIDE RECORDS SUMMARY | 2025-01-31 15:20 | XMS_ITS | Encounter Summary ---
Author Organization [employer] Address [address] [place] [address] 7 [place] [address] Care Team Providers Care Director Of Strategic Marketing Name Role Phone Vicenta Nielsen NP Primary Care Provider [phone] Reason for Visit * Reason Comments Med Refill Encounter Details Date Type Department Care Team ([facility] Contact Info) Description 02/04/2024 Refill [facility]S [address] [place] [address] Valery Berrios MD [address] [place] [address] Type 2 diabetes mellitus without complication, with long-term current use of insulin ([facility]) Social History Tobacco Use Types [...] Office Visit [facility] [address] [place] [address] Vicenta Nielsen NP [address] [place] [address] documented as of this encounter Visit Diagnoses Diagnosis Type 2 diabetes mellitus without complication, with long-term current use of insulin ([facility]) documented in this encounter Additional Health Concerns Assessment Noted Time PHQ-9 Depression Total Score: 5 01/04/20 10:57 AM EDT documented as of this encounter Care Teams Director Of Strategic Marketing Relationship Specialty Start Date End Date Vicenta Nielsen NP [address] [place] [address] PCP - General Family Medicine 12/22/23 ON24 04/29/24 abigial mcneill Security System AnalystWallpaper Remover Steam 10/18/24 documented as of this encounter
--- OUTSIDE RECORDS SUMMARY | 2025-01-31 15:20 | XMS_ITS | Encounter Summary ---
Author Organization [employer] Address [address] [place] [address] 7 [place] [address] Care Team Providers Care Technology Training Associate Name Role Phone Valery Berrios MD Primary Care Provider [phone] Vicenta Nielsen NP Primary Care Provider [phone] Reason for Visit * Reason Onset Date Comments medication 07/14/2023 Encounter Details Date Type Department Care Team ([facility] st Contact Info) Description 07/14/2023 Telephone [facility] [address] [facility] [place] [address] Valery Berrios MD [address] [facility] [place] [address] medication Social History Tobacco Use Types Packs/Day [...] see message below. Retrieved Endo note from [employer]. Per note, plan is to reinitiate metformin 1000mg bid. Could consider adding and SGLT 2 inhibitor in the future. Will increase lantus to 65units at possibly 70 units to keep point care in a.m <180 ... Will send note to scan for PCP to review. * Telephone Encounter - Ying Cox - 07/14/2023 11:20 AM EDT Tc from pt stating lubricating specialist is requesting pt switch from 55 to 65 units on insulin glargine (Lantus) 100 UNIT/ML injection. documented in this encounter Plan of Treatment Upcoming Encounters Date Type Department Care Team (Late st Contact Info) Description 02/09/2025 11:15 AM EDT Office Visit [facility] [address] [place] [address] Vicenta Nielsen NP [address] [place] [address] documented as of this encounter Visit Diagnoses Not on filedocumented in this encounter Additional Health Concerns Assessment Noted Time PHQ-9 Depression Total Score: 0 10/20/19 23 2:41 PM EST documented as of this encounter Care Teams Technology Training Associate Relationship Specialty Start Date End Date Valery Berrios MD [address] [place] [address] PCP - General Internal Medicine 12/01/18 12/21/23 Vicenta Nielsen NP [address] [place] [address] PCP - General Family Medicine 12/22/23 Problemsolutions24 04/29/24 abigail mcneill Ibm Mainframe DeveloperCase Management Director 10/18/24 documented as of this encounter
--- OUTSIDE RECORDS SUMMARY | 2025-01-31 15:20 | XMS_ITS | Encounter Summary ---
Author Organization [facility] Address [address] [place] [address] Care Team Providers Care Ict Support Technicians Name Role Phone Vicenta Nielsen Primary Care Provider [phone] Encounter Details Date Type Department Care Team Description 05/30/2024 Social Work [facility] Oncology Services [address] [place] [address] Claude Resendiz, [facility] Social History Tobacco Use Types Packs/Day Years [...] on filedocumented in this encounter Care Teams Ict Support Technicians Relationship Specialty Start Date End Date Vicenta Nielsen [address] [place] [phone] PCP - General Family Medicine 05/26/24 documented as of this encounter
--- OUTSIDE RECORDS SUMMARY | 2025-01-31 15:20 | XMS_ITS ---
Author Name [facility] Organization Unknown Encounters Encounter Type Encounter Reason Primary Diagnosis Location Date Ambulatory [facility] 07/14/2024 Care Team Organization Name Specialty Phone Email Start Date End Da te [facility] 2024
--- OUTSIDE RECORDS SUMMARY | 2025-01-31 15:20 | XMS_ITS | Encounter Summary ---
Author Organization [employer] Address [address] [place] [address] 7 [place] [address] Care Team Providers Care Human Resources Leader Name Role Phone Valery Berrios MD Primary Care Provider [phone] Vicenta Nielsen NP Primary Care Provider [phone] Reason for Visit * Reason Onset Date Comments PT1 07/21/2023 Encounter Details Date Type Department Care Team ([facility] st Contact Info) Description 07/21/2023 Telephone [facility] MED & PEDS [address] [facility] [place] [address] Valery Berrios MD [address] [place], [place] Christiano PT1 Social History Tobacco Use [...] 08/11 Time: 3:45 pm Visits: n/a Address: [address] [place] [address] Facility: [facility], Dr. Kimmy Vuong Wheel Chair: n/a Senior Market Research Analyst Needed: no Pick-up location confirmed: [address] [place] [address] documented in this encounter Plan of Treatment Upcoming Encounters Date Type Department Care Team (Late st Contact Info) Description 02/09/2025 11:15 AM EDT Office Visit [facility] [address] [place] [address] Vicenta Nielsen NP [address] [place] [address] documented as of this encounter Visit Diagnoses Not on filedocumented in this encounter Additional Health Concerns Assessment Noted Time PHQ-9 Depression Total Score: 0 10/20/19 23 2:41 PM EST documented as of this encounter Care Teams Human Resources Leader Relationship Specialty Start Date End Date Valery Berrios MD [address] [place] [address] PCP - General Internal Medicine 12/01/18 12/21/23 Vicenta Nielsen NP [address] [place] [address] PCP - General Family Medicine 12/22/23 [employer] 04/29/24 abigail mcneill Business Excellence ManagerPatient Service Coordinator 10/18/24 documented as of this encounter
--- OUTSIDE RECORDS SUMMARY | 2025-01-31 15:20 | XMS_ITS | Encounter Summary ---
Author Organization [employer] Address [address] [facility] 7 [place] [address] Care Team Providers Care Chicken Sexer Name Role Phone Valery Berrios MD Primary Care Provider [phone] Vicenta Nielsen NP Primary Care Provider [phone] Reason for Visit * Reason Onset Date Comments Transfer Patient 09/13/2023 Encounter Details Date Type Department Care Team (Late st Contact Info) Description 09/13/2023 Telephone [facility] [address] [place] [address] Valery Berrios MD 505 [facility] BHARTI [place] [phone] Transfer Patient Social History Tobacco Use Types [...] status on TP Please contact pt @ [phone] * Telephone Encounter - Jone Kaufman - 09/13/2023 1:58 PM EST Tc from patient requesting to be transferred to the [facility] due to patient residing at [place] documented in this encounter Plan of Treatment Upcoming Encounters Date Type Department Care Team (Late st Contact Info) Description 02/09/2025 11:15 AM EDT Office Visit [facility] [address] [place] [address] Vicenta Nielsen NP [address] [place] [address] documented as of this encounter Visit Diagnoses Not on filedocumented in this encounter Additional Health Concerns Assessment Noted Time PHQ-9 Depression Total Score: 0 10/20/19 23 2:41 PM EST documented as of this encounter Care Teams Chicken Sexer Relationship Specialty Start Date End Date Valery Berrios MD [address] [place] [address] PCP - General Internal Medicine 12/01/18 12/21/23 Vicenta Nielsen NP [address] [place] [address] PCP - General Family Medicine 12/22/23 [email or web address] 04/29/24 abigail mcneill Snow Removal SupervisorGuitar Player 10/18/24 documented as of this encounter
--- OUTSIDE RECORDS SUMMARY | 2025-01-31 15:21 | XMS_ITS | Clinical Summary ---
Author Organization [employer] Address [address] [place] [address] [address] [place] [address] Care Team Providers Care Coroner/Medical Examiner Name Role Phone Vicenta Nielsen NP Primary Care Provider [phone] Allergies Active Allergy Reactions Criticality Noted Date Comments Bee Pollen 05/07/2023 Bee Venom Anaphylaxis High 12/15/2018 Beeswax Unknown 03/21/2024 Per [place] Erythromycin Itching 07/04/2019 Iodinated Contrast Media Shortness of breath High 11/20/2022 Iodine 12/15/2018 Medications * This document contains information received from the source organization and may not represent a complete record from that organization. Blood Glucose Monitoring Suppl (Androcial [place] Lite) w/Device kit TEST BLOOD SUGAR FOUR TIMES DAILY 022 Active Continuous Blood Gluc Sales Floor Team Member (FreeStyle Oumar 2 [place]) device USE DIRECTED EVERY DAY 022 Active [...] complication, with long-term current use of insulin ([facility]) USE DIRECTED TO TEST BLOOD SUGAR FOUR [...] complication, with long-term current use of insulin ([facility]) USE 5 TO 6 TIMES DAILY DIRECTED 200 each 2 Active Lantus SoloStar 100 UNIT/ML penIndications :Type 2 diabetes mellitus with hyperglycemia, with long-term current use of insulin ([facility]) INJECT 20 UNITS SUBCUTANEOUSLY TWICE DAILY 15 mL 1 025 Active TRUEplus Lancets 33G miscIndication s:Type 2 diabetes mellitus without complication, with long-term current use of insulin (CMS/HCC) TEST BLOOD SUGAR FOUR TIMES DAILY 100 each 1 025 Active TRUEplus Lancets 33G miscIndication s:Type 2 diabetes mellitus without complication, with long-term current use of insulin ([facility]) TEST BLOOD SUGAR FOUR TIMES DAILY 100 each 11 024 2024 Discontinued(R eorder (will not trigger notification to Pharmacy)) insulin glargine (Lantus SoloStar) 100 UNIT/ML penIndications :Type 2 diabetes mellitus with hyperglycemia, with long-term current use of insulin ([facility]) Inject 20 Units under the skin 2 times daily. 15 mL 3 024 2024 Discontinued insulin pen needle (Novofine Pen Needle) 32G x 6 mm miscIndication s:Type 2 diabetes mellitus without complication, with long-term current use of insulin ([facility]) USE 5 TO 6 TIMES DAILY DIRECTED 150 each 1 025 2024 Discontinued Active Problems Patient Care Coordination No te Formatting of this note migh t be different from the original. [id number] Abdifatah Muñoz C3/CM Sandy Gimenez RN Problem Noted Date Diagnosed Date Left flank pain 11/10/2024 Assessment & Plan (11/12/2024 7:16 PM EST): Ddx includes msk pain, no hematuria, ultrasound ordered due to hx of renal calculi Peripheral vascular disease 11/10/2024 Coronary artery disease involving wichita heart 0 11/10/2024 Pain of right hip [...] sxs. Referral placed for OP therapy with [facility] in [place]. Provided patient referral letter and agency contact [...] sxs. Provided information for [facility] in [place] for sooner appointments. Assessment & Plan (07/24/2024 7:13 PM EDT): Pt with significant anxiety, related to home life and serious illnesses, [facility] into meet with patient Panic attacks [...] sxs. Provided information for [facility] in [place] for sooner appointments. Amputation of right lower [...] pending , advised him to f/u with hospice care consultant Pelvic lymphadenopathy 05/23/2024 Overview (05/23/2024): CT scan abd/pelvis at [facility] on 02/20/24: IMPRESSION: 1. Pelvic lymphadenopathy. [...] does not receive his care in the [facility] system, and there are limited records, including labs, available for review in Care Everywhere. Hgb over the past 2 weeks DEPARTMENT MANAGER has ranged from 6.7 to 8.2. Patient has an unknown baseline H&H. Patient underwent TMA of the right foot on February 06, [address] Escalante. This was performed at [facility], and patient was discharged to rehab at [facility]. Starting on 03/07, patient with increased bleeding from amputation site. He presented to the ED on this date, was seen by podiatry, and given lack of active bleeding and stable H&H, he was DC'd back to rehab. Came back 03/12 with bleeding, however this stopped with elevation and he was again discharged back to [place], only to return on 03/13. He was [...] -Close follow up with Dr. Escalante in [place]. Appointment scheduled for 04/04/2024 at 2:30 PM [...] 06, 2024. This surgery was performed at [facility]. Patient was ultimately discharged to [facility] [...] Encounters Date Type Department Care Team Description 01/30/2025 Refill [facility] [address] [place] [address] Vicenta Nielsen NP 01/25/2025 Refill [facility] [address] [place] [address] Vicenta Nielsen NP Type 2 diabetes mellitus with hyperglycemia, with long-term current use of insulin ([facility]); Type 2 diabetes mellitus without complication, with long-term current use of insulin ([facility]) 01/23/2025 Telephone [facility] [address] [place] [phone] Vicenta Nielsen NP Medication Question 01/23/2025 Refill [facility] [address] [place] [address] Kimberly Bloom NP Type 2 diabetes mellitus without complication, with long-term current use of insulin ([facility]) 01/18/2025 Patient Outreach [facility] [address] [place] [address] Vicenta Nielsen NP Care Coordination (CH[facility] outreach for SDOH PT-1 update-referral completed /) 01/18/2025 Telephone [facility] [address] [place] [address] Vicenta Nielsen NP PT1 01/09/2025 Telephone [facility] [address] [place] [phone] Jing Yi RN 01/08/2025 2:30 PM EDT Office Visit [facility] [address] [place] [phone] Vicenta Nielsen NP Type 2 diabetes mellitus with hyperglycemia, with long-term current use of insulin ([facility]) (Primary Dx); Murmur, heart; Dietary counseling; Exercise counseling; Sepsis due to methicillin resistant Staphylococcus aureus (MRSA) with acute organ dysfunction, unspecified organ dysfunction type, unspecified whether septic shock present ([facility]); History of endocarditis 01/08/2025 Travel 01/02/[address] [address] Vicenta Nielsen NP [employer] (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, 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), 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, In persona evaluation.) 12/29/[address] [address] Ronna Juarez MA Chart Prep 12/22/2024 Patient Outreach [address] [phone] Vicenta Nielsen NP Care Coordination (CHW outreach for SDOH PT-1 needs-referral completed /) 12/22/[address] [address] Vicenta Nielsen NP PT1 12/20/2024 11:20 AM EDT Office Visit [facility] [address] [place] [phone] Kimberly Bloom NP Abdominal pain, unspecified abdominal location (Primary Dx); Elevated glucose; Musculoskeletal pain; Murmur, heart; Cellulitis of left lower extremity 12/20/2024 Travel 12/20/[address] [address] Vicenta Nielsen NP Durable Medical Equipment (Wheelchair modifications / [employer]) 12/19/2024 Refill [facility] [address] [place], [place] [phone] Vicenta Nielsen NP Type 2 diabetes mellitus without complication, with long-term current use of insulin ([facility]) 12/15/2024 Population Health Risk Score [facility] () Department [address] [place] [phone] Provider, Population Health Generic 12/15/2024 Orders Only GENERIC EXTERNAL DATA DEPARTMENT Provider, Generic External Data 12/14/2024 Patient Outreach [facility] [address] [place] [phone] Vicenta Nielsen NP Care Coordination ([facility] outreach for [facility] SH-2-[id number] completed /) 12/14/2024 Telephone [facility] [address] [place] [phone] Vicenta Nielsen NP Nurse Triage 12/08/[address] [address] Ronna Juarez [place] Results 12/07/2024 Refill [facility] [address] [place] [address] Vicenta Nielsen NP 12/04/[address] [address] Vicenta Nielsen NP Durable Medical Equipment 12/01/2024 Patient Outreach [facility] [address] [place] [phone] Vicenta Nielsen NP Care Coordination (CH[facility] outreach for [facility] KS-2-[id number] completed /) 12/01/2024 Refill [facility] [address] [place] [phone] Vicenta Nielsen NP Type 2 diabetes mellitus without complication, with long-term current use of insulin (CMS/[facility]) 12/01/2024 Telephone [facility] [address] [place] [phone] Vicenta Nielsen NP PT-1 11/15/[address] [address] Vicenta Nielsen NP Referral 11/10/2024 1:45 PM EST Office Visit [address] [phone] Vicenta Nielsen NP Hypertension, unspecified type (Primary Dx); Type 2 diabetes mellitus with hyperglycemia, with long-term current use of insulin ([facility]); Left flank pain; Below-knee amputation of right lower extremity, initial encounter ([facility]); Peripheral vascular disease ([facility]); Coronary artery disease involving wichita heart with other form of angina pectoris, unspecified vessel or lesion type ([facility]); Iron deficiency anemia due to chronic blood loss; Palpitations; Essential (primary) hypertension; Type 2 diabetes mellitus with other circulatory complication, with long-term current use of insulin ([facility]); History of opioid abuse ([facility]) from Last 3 Months Immunizations Name Administration [...] Description 02/09/2025 11:15 AM EDT Office Visit [facility] [address] [place] [address] Vicenta Nielsen NP [address] [place] [address] Health Maintenance Due Date Last Done Comments [...] 07/25/2024, 07/25/20 Alcohol/Substance Use Screening 09/29/2025 09/29/2024 SDOH Screening [...] Hypertension, unspecified type Coronary artery disease involving wichita heart with other form of angina pectoris, unspecified vessel or lesion type (CMS/HCC) Iron deficiency anemia due to chronic blood loss CBC WITH AUTO DIFFERENTIAL Routine 11/15/2024 11:01 AM EST Type 2 diabetes mellitus with hyperglycemia, with long-term current use of insulin (CMS/HCC) Coronary artery disease involving wichita heart with other form of angina pectoris, unspecified vessel or lesion type (CMS/HCC) COMPREHENSIVE METABOLIC PANEL Routine 11/15/2024 11:01 AM EST Type 2 diabetes mellitus with hyperglycemia, with long-term current use of insulin (CMS/HCC) Coronary artery disease involving wichita heart with other form of angina pectoris, unspecified vessel or lesion type (CMS/HCC) POCT GLYCATED HEMOGLOBIN, TOTAL Routine 11/10/2024 2:12 PM EST Type 2 diabetes mellitus with hyperglycemia, with long-term current use of insulin (CMS/HCC) POCT GLUCOSE Routine 11/10/2024 2:10 PM EST Type 2 diabetes mellitus with hyperglycemia, with long-term current use of insulin (CMS/HCC) LIPID PANEL, STANDARD Routine 06/02/2024 11:59 AM [...] Whole Blood 145(H) 60 - 115 mg/dL [facility] Comment:METER #: [id number] 5Testing performed in the Endocrinology Department [address] , [address], [facility]. 12/15/2024 10:1 0 AM EDT 12/15/2024 10:14 AM EDT us Generic External Data Provider LAB BLOOD ORDERAB LES Final Result [facility] [address] [place] [phone] * US RENAL BI (12/06/2024 11:46 PM EST) Anatomical Region Laterality Modality Abdomen Ultrasound 12/06/2024 11:4 6 PM EST Narrative 12/06/2024 11:49 PM EST ? [facility] ?[address] ?[place] [address] ? Ultrasound Report ? Signed ? Patient: Murdza,Bam ?MR#: [id number] ?? 0 ? : 1965 ?Acct:[id number] ? Age/Sex: 59 / M ?ADM Date: 12/05/24 ? Loc: HO.US ? Attending Dr: Vicenta Nielsen RED CROSS EXECUTIVE DIRECTOR ? Ordering Physician: Vicenta Nielsen NP ?? Date of Service: 12/05/24 ?? Procedure(s): US renal BI ?? Accession Number(s): [id number] ? cc: Vicenta Nielsen NP ? CLINICAL [...] ? DD/ 45 ? TD/TT: 12/06/242345 ? Credit Card Interviewer: ? Procedure Note Dorothy Lr - 12/06/2024 [place] [address] Ultrasound Report Signed Patient: Delilah Wise#: [id number] 0 : 1965Acct:[id number] Age/Sex: 59 / MADM Date: 12/05/24 Loc: HO.US Attending Dr: Vicenta Nielsen NP Ordering Physician: Vicenta Nielsen NP Date of Service: 12/05/24 Procedure(s): US renal BI Accession Number(s): [id number] cc: Vicenta Nielsen NP CLINICAL HISTORY: hx [...] in OV> 12/06/242347 DD/ 45 TD/TT: 12/06/242345 Credit Card Interviewer: us Vicenta Nielsen NP IMG US PROCEDURES Edited Result - Final * TSH W/Reflex to FT4 (11/15/2024 11:01 AM EST) TSH reflex Free T4 1.53 0.32 - 4.0 uIU/mL [facility] Blood Venous blood specimen / Unknown 11/15/2024 11:01 AM EST 11/15/2024 11:10 AM EST us Vicenta Nielsen NP LAB BLOOD ORDERABLES Final Resul t [facility] [address] [place] [phone] * (ABNORMAL) CBC auto differential (11/15/2024 11:01 AM EST) White Blood Count 8.6 4.8 - 10.8 X10*3/uL [facility] Red Blood Count 3.97(L) 4.60 - 5.80 X10*6/uL [facility] Hemoglobin 11.1(L) 14.0 - 18.0 g/dl [facility] Hematocrit 33.5(L) 42.0 - 52.0 % [facility] Mean Corpuscular Volume 84.4 80.0 - 98.0 fL [facility] Mean Corpuscular Hemoglobin 28.0 27.0 - 33.0 pg [facility] Mean Corpuscular HGB Conc 33.1 31.0 - 36.0 g/dl [facility] Red Cell Distribution Width 13.7 11.0 - 16.0 % [facility] Platelet Count 239 160 - 400 X10*3/uL [facility] Mean Platelet Volume 10.7 9.4 - 12.4 fL [facility] Neutrophils Percent Auto 73.0 45 - 73 % [facility] Imm Gran Pct Auto 0.3 0.0 - 0.4 % [facility] Lymphocytes Percent Auto 15.2(L) 20 - 40 % [facility] Monocytes Percent Auto 9.0 2 - 11 % [facility] Eosinophils Percent Auto 1.7 0 - 4 % [facility] Basophils Percent Auto 0.8 0 - 2 % [facility] NRBC Pct Auto 0.0 0.0 - 0.2 /100WBC [facility] Neutrophils Absolute Auto 6.3 2.0 - 8.3 x10*3/uL [facility] Imm Gran Abs Auto 0.03 0.00 - 0.03 X10*3/uL [facility] Lymphocytes Absolute Auto 1.3 1.2 - 4.9 X10*3/uL [facility] Monocytes Absolute Auto 0.8 0.1 - 1.2 X10*3/uL [facility] Eosinophils Absolute Auto 0.2 0.0 - 0.4 X10*3/uL [facility] Basophils Absolute Auto 0.1 0.0 - 0.2 X10*3/uL [facility] NRBC Abs Auto 0.000 0.0 - 0.012 X10*3/uL [facility] Blood Venous blood specimen / Unknown 11/15/2024 11:01 AM EST 11/15/2024 11:10 AM EST us Vicenta Nielsen NP LAB BLOOD ORDERABLES Final Resul t [facility] [address] [place] [phone] * (ABNORMAL) Iron And Total Iron Binding Capacity (11/15/2024 11:01 AM EST) Iron 43(L) 45 - 160 mcg/dL [facility] Total Iron Binding Capacity 316 228 - 428 mcg/dL [facility] Percent Iron Saturation 14(L) 15 - 50 % [facility] Unsaturated Iron Binding 273 ug/dL [facility] Blood Venous blood specimen / Unknown 11/15/2024 11:01 AM EST 11/15/2024 11:10 AM EST us Vicenta Nielsen RED CROSS EXECUTIVE DIRECTOR LAB BLOOD ORDERABLES Final Resul t [facility] [address] [place] [phone] * (ABNORMAL) Comprehensive Metabolic Panel (11/15/2024 11:01 AM EST) Pathologist [facility] Sodium 135 135 - 145 mmol/L [facility] Potassium 5.0 3.3 - 5.1 mmol/L [facility] Chloride 103 96 - 108 mmol/L [facility] Carbon Dioxide 27 22 - 29 mmol/L [facility] Anion Gap 10(L) 12 - 20 [facility] Urea Nitrogen (BUN) 25(H) 9 - 16 mg/dL [facility] Creatinine, Serum 0.95 0.5 - 1.4 mg/dL [facility] Estimated Glomerular Filt Rate >60 [facility] Comment:Chronic Kidney Disea se: Estimated GFR < 60 mL/min/[id number] Kidney Disease: Estimated GFR < 15 mL/min/1.73m2 Glucose 185(H) 60 - 115 mg/dL [facility] Calcium 8.9 8.4 - 10.2 mg/dL [facility] Bilirubin, Total 0.3 0.0 - 1.0 mg/dL [facility] Aspartate Amino Transferase 14 5 - 37 U/L [facility] Alanine Aminotransferase 10 0 - 40 U/L [facility] Total Protein 7.9 6.5 - 8.0 g/dL [facility] Albumin Level 4.0 3.5 - 5.0 g/dL [facility] Alkaline Phosphatase 93 39 - 117 U/L [facility] Blood Venous blood specimen / Unknown 11/15/2024 11:01 AM EST 11/15/2024 11:10 AM EST Vicenta Nielsen RED CROSS EXECUTIVE DIRECTOR LAB BLOOD ORDERABLES Final Resul t [facility] [address] [place] [phone] * (ABNORMAL) POCT HGB A1C (11/10/2024 2:12 PM EST) Hemoglobin A1C 7.0(A) 4.0 - 6.0 % QC Media Lot # [id number] Lot# Expiration Date Blood 11/10/2024 2:12 PM EST Vicenta Nielsen RED CROSS EXECUTIVE DIRECTOR POINT OF CARE TEST ENTER/EDIT OR DERABLES Final Result * (ABNORMAL) Lipid Panel, Standard (06/02/2024 11:59 AM EDT) Triglycerides 61 <150 mg/dL [facility] Comment:Desirable Triglyceri de: less than 150 mg/dLBorderline High Triglyceride 150-199 mg/dLHigh Triglyceride: 200-499 mg/dLVery High Triglyceride: greater than or equal to 5OO mg/dL Cholesterol 85 <200 mg/dL [facility] Comment:Desirable Cholestero l: less than 200 mg/dLBorderline High Cholesterol: 200-239 mg/dLHigh Cholesterol: greater than 239 mg/dL LDL Cholesterol Calculated 43 <100 mg/dL [facility] Comment:Desirable LDL: less than 100 mg/dLNear Optimal/Above Optimal LDL: 110- 129 mg/dLBorderline High LDL: 130-159 mg/dLHigh LDL: 160-189 mg/dLVery High LDL: greater than or equal to 190 mg/dL HDL Cholesterol 30(L) >40 mg/dL [facility] Comment:Desirable HDL: great er than 40 mg/dL Note: This HDL assay may give artificially low results in patients with liver disease. 06/02/2024 11:5 9 AM EDT 06/02/2024 11:59 AM EDT Generic External Data Provider LAB BLOOD ORDERAB LES Final Result Performing Organization Address [facility] Co de Phone Number [facility] [address] [place] [address] [phone] * Albumin, Random Urine W/Creatinine (06/02/2024 11:49 AM EDT) Creatinine, Urine 75.26 mg/dL [facility] Microalbumin Urine 10.0 mg/L [facility] Microalbum Creatinine Ratio Ur 13.2 <30 ug/mg cr [facility] Comment:Albumin/Creatinine R atio Reference Ranges: Normal: < 30 ug/mg creatinine Microalbuminuria: 30 - 300 ug/mg creatinineClinical Albuminuria: > 300 ug/mg creatinine 06/02/2024 11:4 9 AM EDT 06/02/2024 1:11 PM EDT Generic External Data Provider LAB URINE ORDERAB LES Final Result Performing Organization Address [facility] Co de Phone Number [facility] [address] [place] [phone] from Last 3 Months or Most Recently Relevant to Health Maintenance Insurance [facility] C3 Care Teams Coroner/Medical Examiner Relationship Specialty Start Date End Date Vicenta Nielsen NP [address] [place] [phone] PCP - General Family Medicine 12/22/23 [employer] 04/29/24 abigail mcneill Coal Yard SupervisorUtility Sales Representative 10/18/24
--- OUTSIDE RECORDS SUMMARY | 2025-01-31 15:21 | XMS_ITS | Encounter Summary ---
Author Organization [employer] Address [address] [place] [address] [address] [place] [address] Care Team Providers Care Textile Engineer Name Role Phone Vicenta Nielsen NP Primary Care Provider [phone] Reason for Visit * Reason Onset Date Comments PT-1 10/31/2024 Encounter Details Date Type Department Care Team ([facility] st Contact Info) Description 10/31/2024 Telephone [facility] [address] [place], [place] [phone] Vicenta Nielsen NP [address] [place] [address] PT-1 Social History Tobacco Use Types Packs/Day [...] Yes Provider name or facility name: [address] [facility] [facility] Escort needed: Y/N: Yes Do you have a wheelchair: Y/N: Yes If yes- Manual or electric: electric Visits: (3) ( x monthly) * Telephone Encounter - Jacobo Ross - 10/31/2024 10:29 AM EST Patient calling requesting PT1 Home Address verified: Y/N: Yes [facility] [address] [place] [address] Escort needed: Y/N: Yes Do you have a wheelchair: Y/N: Yes If yes- Manual or electric: Electric Visits: (amount of visits) ( x monthly, weekly, daily) 10 times a month for 3 month documented in this encounter Plan of Treatment Upcoming Encounters Date Type Department Care Team ([facility] st Contact Info) Description 02/09/2025 11:15 AM EDT Office Visit [facility] [address] [place] [address] Vicenta Nielsen NP [address] [place] [address] documented as of this encounter Visit Diagnoses Not on filedocumented in this encounter Additional Health Concerns Assessment Noted Time PHQ-9 Depression Total Score: 7 07/25/20 24 9:24 AM EDT documented as of this encounter Care Teams Textile Engineer Relationship Specialty Start Date End Date Vicenta Nielsen NP [address] [place] [address] PCP - General Family Medicine 12/22/23 [employer] 04/29/24 abigail mcneill Inserting Press OperatorLeather Repairer 10/18/24 documented as of this encounter
--- OUTSIDE RECORDS SUMMARY | 2025-01-31 15:21 | XMS_ITS | Encounter Summary ---
Author Organization [employer] Address [address] [facility] 7t [place] [address] Care Team Providers Care Freelance Writer Name Role Phone Valery Berrios MD Primary Care Provider Vicenta Nielsen NP Primary Care Provider [phone] Reason for Visit * Reason Onset Date Comments pt1 03/03/2023 Encounter Details Date Type Department Care Team (Late st Contact Info) Description 03/03/2023 Telephone [facility] MEDICINE [address] [place] [address] Valery Berrios MD 505 [facility] [place] [id number] pt1 Social History Tobacco Use Types Packs/Day [...] Date: every wednesday Time: 10 am address: [address] [place] [address] [place] [address] specialty: # visits: avionics system engineer: no Wheelchair: cane Date: Time: address: [address] [place] [address] specialty: # visits: avionics system engineer: no Wheelchair: cane documented in this encounter Plan of Treatment Upcoming Encounters Date Type Department Care Team (Late st Contact Info) Description 02/09/2025 11:15 AM EDT Office Visit [facility] MEDICINE [address] [place], [place] [phone] Vicenta Nielsen NP [address] [place], [place] documented as of this encounter Visit Diagnoses Not on filedocumented in this encounter Additional Health Concerns Assessment Noted Time PHQ-9 Depression Total Score: 0 10/20/19 23 2:41 PM EST documented as of this encounter Care Teams Freelance Writer Relationship Specialty Start Date End Date Valery Berrios MD [address] [place] [address] PCP - General Internal Medicine 12/01/18 12/21/23 Vicenta Nielsen NP [address] [place] [address] PCP - General Family Medicine 12/22/23 [employer] 04/29/24 abigail mcneill Financial Services CounselorArmored Truck Driver 10/18/24 documented as of this encounter
--- OUTSIDE RECORDS SUMMARY | 2025-01-31 15:21 | XMS_ITS | Encounter Summary ---
Author Organization [facility] [place] [address] Care Team Providers Care Ostomy Care Nurse Name Role Phone Vicenta Nielsen RAZ Primary Care Provider [phone] Encounter Details Date Type Department Care Team (Late st Contact Info) Description 08/21/2024 Lab Requisition [facility] - Main Lab [address] [facility] [place] [address] Steven Naik MD [address] [place] [address] Cellulitis, unspecified Social History Tobacco Use Types [...] CBC auto differential (08/21/2024 12:00 AM EST) [facility] WBC 6.4 4.8 - 10.8 K/mcL LAB HEMETOLOGY METHOD 08/21/2024 8:22 PM [facility] RBC 3.90(L) 4.50 - 5.50 M/mcL LAB HEMETOLOGY METHOD 08/21/2024 8:22 PM [facility] Hemoglobin 10.3(L) 13.5 - 17.5 g/dL LAB HEMETOLOGY METHOD 08/21/2024 8:22 PM [facility] Hematocrit 32.4(L) 42.0 - 54.0 % LAB HEMETOLOGY METHOD 08/21/2024 8:22 PM [facility] MCV 83.7 79.0 - 98.0 FL LAB HEMETOLOGY METHOD 08/21/2024 8:22 PM [facility] MCH 26.6(L) 27.0 - 32.0 pcg LAB HEMETOLOGY METHOD 08/21/2024 8:22 PM [facility] MCHC 31.8(L) 32.0 - 37.0 g/dL LAB HEMETOLOGY METHOD 08/21/2024 8:22 PM [facility] RDW 14.9 11.0 - 15.0 % LAB HEMETOLOGY METHOD 08/21/2024 8:22 PM [facility] Platelets 208 130 - 400 K/mcL LAB HEMETOLOGY METHOD 08/21/2024 8:22 PM [facility] MPV 11.8(H) 7.0 - 11.0 FL LAB HEMETOLOGY METHOD 08/21/2024 8:22 PM [facility] NRBC 0.0 <1.0 % LAB HEMETOLOGY METHOD 08/21/2024 8:22 PM [facility] NRBC Absolute 0.00 <0.10 K/mcL LAB HEMETOLOGY METHOD 08/21/2024 8:22 PM [facility] Neutrophils Relative 66.3 % LAB HEMETOLOGY METHOD 08/21/2024 8:22 PM [facility] Lymphocytes Relative 21.1 % LAB HEMETOLOGY METHOD 08/21/2024 8:22 PM [facility] Monocytes Relative 9.8 % LAB HEMETOLOGY METHOD 08/21/2024 8:22 PM [facility] Eosinophils Relative 2.0 % LAB HEMETOLOGY METHOD 08/21/2024 8:22 PM [facility] Basophils Relative 0.5 % LAB HEMETOLOGY METHOD 08/21/2024 8:22 PM [facility] Immature Granulocytes Relative 0.3 % LAB HEMETOLOGY METHOD 08/21/2024 8:22 PM [facility] Neutrophils Absolute 4.24 1.50 - 7.00 K/mcL LAB HEMETOLOGY METHOD 08/21/2024 8:22 PM [facility] Lymphocytes Absolute 1.35 1.00 - 5.00 K/mcL LAB HEMETOLOGY METHOD 08/21/2024 8:22 PM [facility] Monocytes Absolute 0.63 0.20 - 1.00 K/mcL LAB HEMETOLOGY METHOD 08/21/2024 8:22 PM [facility] Eosinophils Absolute 0.13 0.00 - 0.50 K/mcL LAB HEMETOLOGY METHOD 08/21/2024 8:22 PM [facility] Basophils Absolute 0.03 0.00 - 0.20 K/mcL LAB HEMETOLOGY METHOD 08/21/2024 8:22 PM [facility] Immature Granulocytes Absolute 0.02 0.00 - 0.03 K/mcL LAB HEMETOLOGY METHOD 08/21/2024 8:22 PM EST [facility] Blood Venous blood specimen / Unknown 08/21/2024 08/21/2024 8:09 PM EST Steven Naik MD LAB BLOOD ORDERABLES Final Re sult Performing Organization Address City/[facility]/ZIP Co de Phone Number [facility] [address] [place] [address], [place] [phone] * Creatine kinase (08/21/2024 12:00 AM EST) Pathologist [facility] Total CK 54 22 - 269 unit/L LAB CHEMISTRY METHOD 08/21/2024 8:29 PM [facility] Blood Venous blood specimen / Unknown 08/21/2024 08/21/2024 8:09 PM EST Steven Naik MD LAB BLOOD ORDERABLES Final Re sult [facility] [address] [place] [address], [place] [phone] * (ABNORMAL) Comprehensive metabolic panel (08/21/2024 12:00 AM EST) Pathologist [facility] Sodium 138 133 - 145 mmol/L LAB CHEMISTRY METHOD 08/21/2024 8:29 PM [facility] Potassium 4.5 3.5 - 5.5 mmol/L LAB CHEMISTRY METHOD 08/21/2024 8:29 PM [facility] Chloride 105 96 - 110 mmol/L LAB CHEMISTRY METHOD 08/21/2024 8:29 PM [facility] CO2 28 21 - 32 mmol/L LAB CHEMISTRY METHOD 08/21/2024 8:29 PM [facility] Anion Gap 5 3 - 11 LAB CHEMISTRY METHOD 08/21/2024 8:29 PM [facility] Glucose 130(H) 70 - 100 mg/dL LAB CHEMISTRY METHOD 08/21/2024 8:29 PM [facility] BUN 28(H) 5 - 25 mg/dL LAB CHEMISTRY METHOD 08/21/2024 8:29 PM [facility] Creatinine 1.02 0.70 - 1.30 mg/dL LAB CHEMISTRY METHOD 08/21/2024 8:29 PM [facility] eGFR 85 >=60 mL/min/1. 73m2 LAB CHEMISTRY METHOD 08/21/2024 8:29 PM [facility] Comment:Calculation based on the??Chronic Kidney Disease Epidemiology Collaboration (CKD-EPI) equation refit??without adjustment for race. BUN/Creatinine Ratio 27.5 LAB CHEMISTRY METHOD 08/21/2024 8:29 PM [facility] Calcium 9.4 8.5 - 10.5 mg/dL LAB CHEMISTRY METHOD 08/21/2024 8:29 PM [facility] AST (SGOT) 15 10 - 42 unit/L LAB CHEMISTRY METHOD 08/21/2024 8:29 PM [facility] ALT (SGPT) 19 10 - 60 unit/L LAB CHEMISTRY METHOD 08/21/2024 8:29 PM [facility] Alkaline Phosphatase 90 42 - 121 unit/L LAB CHEMISTRY METHOD 08/21/2024 8:29 PM [facility] Total Protein 7.6 6.0 - 8.0 g/dL LAB CHEMISTRY METHOD 08/21/2024 8:29 PM [facility] Albumin 3.9 3.2 - 5.0 g/dL LAB CHEMISTRY METHOD 08/21/2024 8:29 PM [facility] Total Bilirubin 0.3 0.0 - 1.4 mg/dL LAB CHEMISTRY METHOD 08/21/2024 8:29 PM [facility] Blood Venous blood specimen / Unknown 08/21/2024 08/21/2024 8:09 PM EST us Stevencarlos Naik MD LAB BLOOD ORDERABLES Final Re sult [facility] ([facility]) [facility] [address] [place] [address], documented in this encounter Visit Diagnoses Diagnosis Cellulitis, unspecified documented in this encounter Care Teams Ostomy Care Nurse Relationship Specialty Start Date End Date Vicenta Nielsen FNP [address] [place] [address] PCP - General 05/26/24 documented as of this encounter
--- OUTSIDE RECORDS SUMMARY | 2025-01-31 15:21 | XMS_ITS | Encounter Summary ---
Author Organization [employer] Address [address] [place] [address] Street 7t [place] [address] Care Team Providers Care Sales Representative Sales Manager Name Role Phone Vicenta Nielsen NP Primary Care Provider [phone] Reason for Visit * Reason Onset Date Comments PT1 05/29/2024 Encounter Details Date Type Department Care Team ([facility] st Contact Info) Description 05/29/2024 Telephone [facility] MEDICINE [address] [place], [place] [phone] Vicenta Nielsen NP 230 [place] [address] PT1 Social History Tobacco Use Types Packs/Day [...] PM EDT Tc from pt requesting for [address] [place] [address] PT1 to be 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 documented in this encounter Plan of Treatment Upcoming Encounters Date Type Department Care Team (Late st Contact Info) Description 02/09/2025 11:15 AM EDT Office Visit [facility] MEDICINE [address] [place] [address] Vicenta Nielsen NP [address] [place] [address] documented as of this encounter Visit Diagnoses Not on filedocumented in this encounter Additional Health Concerns Assessment Noted Time PHQ-9 Depression Total Score: 5 01/04/20 10:57 AM EDT documented as of this encounter Care Teams Sales Representative Sales Manager Relationship Specialty Start Date End Date Vicenta Nielsen NP [address] [place] [address] PCP - General Family Medicine 12/22/23 [employer] 04/29/24 abigail mcneill Service Desk AssociateTube Coater 10/18/24 documented as of this encounter
--- OUTSIDE RECORDS SUMMARY | 2025-01-31 15:21 | XMS_ITS | Encounter Summary ---
Author Organization [employer] Address [address] [facility] [address] 7t [place] [address] Care Team Providers Care Fermenter Champagne Name Role Phone Vicenta Nielsen STRIP MINE SUPERVISOR Primary Care Provider [phone] Reason for Visit * Reason Onset Date Comments Nurse Triage 08/01/2024 Encounter Details Date Type Department Care Team ([facility] st Contact Info) Description 08/01/2024 Telephone [facility] MEDICINE 230 [place] [address] Vicenta Nielsen NP 230 [place] [address] Nurse Triage Social History Tobacco Use Types [...] amputation. Pt offered to seek care at [facility]. Pt declines states will have [facility] call tomorrow with update on what area looks like based on their assessment. Reviewed home care advise, ER precautions and reasons to call back. Reviewed [facility] operating hours and that wait times [...] Description 02/09/2025 11:15 AM EDT Office Visit [facility] MEDICINE [address] [place] [address] Vicenta Nielsen NP [address] [place] [address] documented as of this encounter Visit Diagnoses Not on filedocumented in this encounter Additional Health Concerns Assessment Noted Time PHQ-9 Depression Total Score: 7 07/25/20 24 9:24 AM EDT documented as of this encounter Care Teams Fermenter Champagne Relationship Specialty Start Date End Date Vicenta Nielsen NP [address] [place] [address] PCP - General Family Medicine 12/22/23 [employer] 04/29/24 abigail mcneill Artificial Insemination TechnicianStudent Services Dean 10/18/24 documented as of this encounter
--- OUTSIDE RECORDS SUMMARY | 2025-01-31 15:21 | XMS_ITS | Encounter Summary ---
Author Organization [employer] Address [address] [facility] 7 [place] [address] Care Team Providers Care Perlite Grinder Name Role Phone Valery Berrios MD Primary Care Provider Vicenta Nielsen NP Primary Care Provider [phone] Encounter Details Date Type Department Care Team (Late st Contact Info) Description 03/24/2023 Abstract [facility] MEDICINE [address] [place] [address] Valery Berrios MD 505 [place] [address] Social History Tobacco Use Types Packs/Day Years [...] Description 02/09/2025 11:15 AM EDT Office Visit [facility] MEDICINE [address] [place] [address] Vicenta Nielsen NP [address] [place], [place] [phone] documented as of this encounter Visit Diagnoses Not on filedocumented in this encounter Additional Health Concerns Assessment Noted Time PHQ-9 Depression Total Score: 0 10/20/19 23 2:41 PM EST documented as of this encounter Care Teams Perlite Grinder Relationship Specialty Start Date End Date Valery Berrios MD [address] [place] [address] PCP - General Internal Medicine 12/01/18 12/21/23 Vicenta Nielsen NP [address] [place] [address] PCP - General Family Medicine 12/22/23 [employer] 04/29/24 abigail mcneill Cook JellyTransition Rn 10/18/24 documented as of this encounter
--- OUTSIDE RECORDS SUMMARY | 2025-01-31 15:21 | XMS_ITS | Encounter Summary ---
Author Organization [employer] Address [address] [place] [address] 7 [place] [address] Care Team Providers Care Medical Care Administrator Name Role Phone Valery Berrios MD Primary Care Provider [phone] Vicenta Nielsen NP Primary Care Provider [phone] Reason for Visit * Reason Onset Date Comments PT1 11/18/2022 Encounter Details Date Type Department Care Team ([facility] st Contact Info) Description 11/18/2022 Telephone [facility] MED & PEDS [address] [place] [address] Valery Berrios MD 505 [place] [address] PT1 Social History Tobacco Use Types Packs/Day [...] from pt requesting for a PT1 Location: [address] [place] [address] Specialty: All appts Time: n/a Date: n/a Hotel Reservation Agent: n/a Does require a cane. Pt states previous PT1 will on December 09, 2022 If any question please contact pt at [phone] documented in this encounter Plan of Treatment Upcoming Encounters Date Type Department Care Team ([facility] Contact Info) Description 02/09/2025 11:15 AM EDT Office Visit [facility] MEDICINE [address] [place] [address] Vicenta Nielsen NP 230 [place] [address] documented as of this encounter Visit Diagnoses Not on filedocumented in this encounter Additional Health Concerns Assessment Noted Time PHQ-9 Depression Total Score: 0 10/20/19 23 2:41 PM EST documented as of this encounter Care Teams Medical Care Administrator Relationship Specialty Start Date End Date Valery Berrios MD [address] [place] [address] PCP - General Internal Medicine 12/01/18 12/21/23 Vicenta Nielsen NP [address] [place] [address] PCP - General Family Medicine 12/22/23 [employer] 04/29/24 abigail mcneill Batting Machine OperatorAdoption Manager 10/18/24 documented as of this encounter
--- OUTSIDE RECORDS SUMMARY | 2025-01-31 15:21 | XMS_ITS | Encounter Summary ---
Author Organization [employer] Address [address] [place] [address] 7 [place] [address] Care Team Providers Care Clinical Trials Manager Name Role Phone Valery Berrios MD Primary Care Provider [phone] Vicenta Nielsen NP Primary Care Provider [phone] Encounter Details Date Type Department Care Team (Late st Contact Info) Description 04/21/2023 Orders Only [facility] MED & [facility]EDS [address] [place] [address] Valery Berrios MD 505 [place] [address] Other iron deficiency anemia Social History Tobacco [...] 02/09/2025 11:15 AM EDT Office Visit [facility] MEDICINE [address] [place] [address] Vicenta Nielsen NP 230 [place] [address] documented as of this encounter Visit Diagnoses Diagnosis Other iron deficiency anemia documented in this encounter Additional Health Concerns Assessment Noted Time PHQ-9 Depression Total Score: 0 10/20/19 23 2:41 PM EST documented as of this encounter Care Teams Clinical Trials Manager Relationship Specialty Start Date End Date Valery Berrios MD [address] [place] [address] PCP - General Internal Medicine 12/01/18 12/21/23 Vicenta Nielsen NP [address] [place] [address] PCP - General Family Medicine 12/22/23 [employer] 04/29/24 abigail mcneill Outside Medical Sales RepresentativeProduction Tech 10/18/24 documented as of this encounter
--- OUTSIDE RECORDS SUMMARY | 2025-01-31 15:21 | XMS_ITS | Encounter Summary ---
Author Organization [employer] Address [address] [facility] [address] 7t [place] [address] Care Team Providers Care Dive Master Name Role Phone Vicenta Nielsen NP Primary Care Provider [phone] Reason for Visit * Reason Onset Date Comments Lab Orders 10/31/2024 Encounter Details Date Type Department Care Team ([facility] st Contact Info) Description 10/31/2024 Telephone [facility] MEDICINE [address] [place], [place] [phone] Vicenta Nielsen NP 230 [place] [address] Lab Orders Social History Tobacco Use Types [...] [facility]. Pt also c/o left sided [...] would like to have labs done at [facility] when he goes so that he can [...] Description 02/09/2025 11:15 AM EDT Office Visit [facility] MEDICINE [address] [place] [address] Vicenta Nielsen NP 230 [place] [address] documented as of this encounter Visit Diagnoses Not on filedocumented in this encounter Additional Health Concerns Assessment Noted Time PHQ-9 Depression Total Score: 7 07/25/20 24 9:24 AM EDT documented as of this encounter Care Teams Dive Master Relationship Specialty Start Date End Date Vicenta Nielsen NP 230 [place] [address] PCP - General Family Medicine 12/22/23 [employer] 04/29/24 abigail mcneill Registered Nurse Step DownOil Exploration Engineer 10/18/24 documented as of this encounter
--- OUTSIDE RECORDS SUMMARY | 2025-01-31 15:21 | XMS_ITS | Clinical Summary ---
Author Organization [address] Address [address] [place] [phone] Phone Care Team Providers Care Sample Tester Name Role Phone Vicenta Nielsen RAZ Primary Care Provider [phone] Immunizations Name Administration Dates Next Due Pfizer [...] to complete this topic Insurance [place] Advance Directives Documents on File Type Date Recorded Patient Stripe Marker Expl anation Health Care Decision (hx) 01/22/2023 [...] (hx) 01/22/2023 AD PURDY DIRECTIVE Care Teams Sample Tester Relationship Specialty Start Date End Date Vicenta Nielsen FNP [address] [place] [phone] PCP - General 05/26/24
--- OUTSIDE RECORDS SUMMARY | 2025-01-31 15:21 | XMS_ITS | Encounter Summary ---
Author Organization [employer] Address [address] [place] [address] Street 7t [place] [address] Care Team Providers Care Lower School Music Teacher Name Role Phone Vicenta Nielsen NP Primary Care Provider [phone] Reason for Visit * Reason Onset Date Comments Durable Medical Equipment 08/18/2024 Encounter Details Date Type Department Care Team ([facility] st Contact Info) Description 08/18/2024 Telephone [facility] MEDICINE [address] [place], [place] [phone] Vicenta Nielsen NP [address] [place] [address] Durable Medical Equipment Social History Tobacco Use [...] leg and he feels insecure. Callback number [phone] documented in this encounter Plan of Treatment Upcoming Encounters Date Type Department Care Team (Late st Contact Info) Description 02/09/2025 11:15 AM EDT Office Visit [facility] MEDICINE [address] [place] [address] Vicenta Nielsen NP [address] [place] [address] documented as of this encounter Visit Diagnoses Not on filedocumented in this encounter Additional Health Concerns Assessment Noted Time PHQ-9 Depression Total Score: 7 07/25/20 9:24 AM EDT documented as of this encounter Care Teams Lower School Music Teacher Relationship Specialty Start Date End Date Vicenta Nielsen NP [address] [place] [address] PCP - General Family Medicine 12/22/23 [employer] 04/29/24 abigail mcneill Education Program SpecialistStore Clerk Checker 10/18/24 documented as of this encounter
--- OUTSIDE RECORDS SUMMARY | 2025-01-31 15:21 | XMS_ITS | Encounter Summary ---
Author Organization [employer] Address [address] [place] [address] Street 7t [place] [address] Care Team Providers Care Fighter Pilot Name Role Phone Vicenta Nielsen NP Primary Care Provider [phone] Reason for Visit * Reason Onset Date Comments FYI 10/12/2024 Encounter Details Date Type Department Care Team ([facility] st Contact Info) Description 10/12/2024 Telephone [facility] MEDICINE 230 [place], [place] [phone] Vicenta Nielsen NP [address] [place] [address] FYI Social History Tobacco Use Types Packs/Day [...] Description 02/09/2025 11:15 AM EDT Office Visit [facility] MEDICINE [address] [place] [address] Vicenta Nielsen NP [address] [place] [address] documented as of this encounter Visit Diagnoses Not on filedocumented in this encounter Additional Health Concerns Assessment Noted Time PHQ-9 Depression Total Score: 7 07/25/20 9:24 AM EDT documented as of this encounter Care Teams Fighter Pilot Relationship Specialty Start Date End Date Vicenta Nielsen NP [address] [place] [address] PCP - General Family Medicine 12/22/23 [employer] 7/27/24 abigail mcneill Evidence SpecialistBoat Designer 10/18/24 documented as of this encounter
--- OUTSIDE RECORDS SUMMARY | 2025-01-31 15:21 | XMS_ITS | Encounter Summary ---
Author Organization [employer] Address [address] [place] [address] 7t [place] [address] Care Team Providers Care Photography Intern Name Role Phone Vicenta Nielsen NP Primary Care Provider [phone] Reason for Visit * Reason Onset Date Comments Referral 10/31/2024 Encounter Details Date Type Department Care Team ([facility] st Contact Info) Description 10/31/2024 Telephone [facility] MEDICINE [address] [place], [place] [phone] Vicenta Nielsen NP [address] [place] [address] Referral Social History Tobacco Use Types Packs/Day [...] in a lot of pain. Contact pt: [phone] documented in this encounter Plan of Treatment Upcoming Encounters Date Type Department Care Team (Late st Contact Info) Description 02/09/2025 11:15 AM EDT Office Visit [facility] MEDICINE [address] [place] [address] Vicenta Nielsen NP [address] [place] [address] documented as of this encounter Visit Diagnoses Not on filedocumented in this encounter Additional Health Concerns Assessment Noted Time PHQ-9 Depression Total Score: 7 07/25/20 9:24 AM EDT documented as of this encounter Care Teams Photography Intern Relationship Specialty Start Date End Date Vicenta Nielsen NP [address] [place] [address] PCP - General Family Medicine 12/22/23 [employer] 04/29/24 abigail mcneill Ticket SorterCommunications Representative 10/18/24 documented as of this encounter
--- OUTSIDE RECORDS SUMMARY | 2025-01-31 15:21 | XMS_ITS | Encounter Summary ---
Author Organization [employer] Address [address] [place] [address] 7 [place] [address] Care Team Providers Care Consumer Insights Intern Name Role Phone Valery Berrios MD Primary Care Provider [phone] Vicenta Nielsen NP Primary Care Provider [phone] Reason for Visit * Reason Onset Date Comments Ultrasound Status 11/18/2022 Encounter Details Date Type Department Care Team ([facility] st Contact Info) Description 11/18/2022 Telephone [facility] CHC MED & PEDS [address] [place] [address] Valery Berrios MD [address] [place] [address] Ultrasound Status Social History Tobacco Use Types [...] good effect. Pt informed this RN checked [facility] and there is no dx of his complain. Pt advised letter cannot be written without appropriate dx and that pt can call [facility] back with the numberfor the urologist so that PCP's office can f/u with them to request notes and update dx. Pt also gave this RN the number to the methadone clinic to f/u. RN called [phone], phone recording statesnumber you have dialed is [...] understand him. States PCP may not understand Indonesian or that he may just be being [...] any question please contact the clinic at [phone] [facility] [place]. Pt is also requesting for his Coordinator to give him a call back. If any questions please contact pt at [phone] documented in this encounter Plan of Treatment Upcoming Encounters Date Type Department Care Team (Late st Contact Info) Description 02/09/2025 11:15 AM EDT Office Visit [facility] MEDICINE [address] [place] [address] Vicenta Nielsen NP [address] [place] [address] documented as of this encounter Visit Diagnoses Not on filedocumented in this encounter Additional Health Concerns Assessment Noted Time PHQ-9 Depression Total Score: 0 10/20/19 23 2:41 PM EST documented as of this encounter Care Teams Consumer Insights Intern Relationship Specialty Start Date End Date Valery Berrios MD [address] [place] [address] PCP - General Internal Medicine 12/01/18 12/21/23 Vicenta Nielsen NP [address] [place] [address] PCP - General Family Medicine 12/22/23 [employer] 04/29/24 abigail mcneill Service ArchitectPastrycook'S Assistant 10/18/24 documented as of this encounter
--- OUTSIDE RECORDS SUMMARY | 2025-01-31 15:21 | XMS_ITS | Encounter Summary ---
Author Organization [facility] [place] [address] Care Team Providers Care Owner Spa Director Name Role Phone Vicenta Nielsen RAZ Primary Care Provider [phone] Encounter Details Date Type Department Care Team (Late st Contact Info) Description 08/30/2024 Lab Requisition [facility] - Main Lab [address] [facility] [place] [address] Mary Song PA [address] [address] Cellulitis, unspecified Social History Tobacco Use Types [...] K/mcL LAB HEMETOLOGY METHOD 08/30/2024 9:13 AM [facility] RBC 3.90(L) 4.50 - 5.50 M/mcL LAB HEMETOLOGY METHOD 08/30/2024 9:13 AM [facility] Hemoglobin 10.5(L) 13.5 - 17.5 g/dL LAB HEMETOLOGY METHOD 08/30/2024 9:13 AM [facility] Hematocrit 32.8(L) 42.0 - 54.0 % LAB HEMETOLOGY METHOD 08/30/2024 9:13 AM [facility] MCV 84.5 79.0 - 98.0 FL LAB HEMETOLOGY METHOD 08/30/2024 9:13 AM [facility] MCH 27.1 27.0 - 32.0 pcg LAB HEMETOLOGY METHOD 08/30/2024 9:13 AM [facility] MCHC 32.0 32.0 - 37.0 g/dL LAB HEMETOLOGY METHOD 08/30/2024 9:13 AM [facility] RDW 14.9 11.0 - 15.0 % LAB HEMETOLOGY METHOD 08/30/2024 9:13 AM [facility] Platelets 206 130 - 400 K/mcL LAB HEMETOLOGY METHOD 08/30/2024 9:13 AM [facility] MPV 12.6(H) 7.0 - 11.0 FL LAB HEMETOLOGY METHOD 08/30/2024 9:13 AM [facility] NRBC 0.0 <1.0 % LAB HEMETOLOGY METHOD 08/30/2024 9:13 AM [facility] NRBC Absolute 0.00 <0.10 K/mcL LAB HEMETOLOGY METHOD 08/30/2024 9:13 AM [facility] Neutrophils Relative 63.6 % LAB HEMETOLOGY METHOD 08/30/2024 9:13 AM [facility] Lymphocytes Relative 20.7 % LAB HEMETOLOGY METHOD 08/30/2024 9:13 AM [facility] Monocytes Relative 11.6 % LAB HEMETOLOGY METHOD 08/30/2024 9:13 AM [facility] Eosinophils Relative 3.0 % LAB HEMETOLOGY METHOD 08/30/2024 9:13 AM [facility] Basophils Relative 1.0 % LAB HEMETOLOGY METHOD 08/30/2024 9:13 AM [facility] Immature Granulocytes Relative 0.1 % LAB HEMETOLOGY METHOD 08/30/2024 9:13 AM [facility] Neutrophils Absolute 4.26 1.50 - 7.00 K/mcL LAB HEMETOLOGY METHOD 08/30/2024 9:13 AM [facility] Lymphocytes Absolute 1.39 1.00 - 5.00 K/mcL LAB HEMETOLOGY METHOD 08/30/2024 9:13 AM [facility] Monocytes Absolute 0.78 0.20 - 1.00 K/mcL LAB HEMETOLOGY METHOD 08/30/2024 9:13 AM [facility] Eosinophils Absolute 0.20 0.00 - 0.50 K/mcL LAB HEMETOLOGY METHOD 08/30/2024 9:13 AM [facility] Basophils Absolute 0.07 0.00 - 0.20 K/mcL LAB HEMETOLOGY METHOD 08/30/2024 9:13 AM [facility] Immature Granulocytes Absolute 0.01 0.00 - 0.03 K/mcL LAB HEMETOLOGY METHOD 08/30/2024 9:13 AM EST [facility] Blood Venous blood specimen / Unknown 08/29/2024 08/30/2024 9:03 AM EST Mary ROE LAB BLOOD ORDERABLES Final Result [facility] [address] [place] [address], [place] [phone] * Creatine kinase (08/29/2024 12:00 AM EST) Pathologist [facility] Total CK 63 22 - 269 unit/L LAB CHEMISTRY METHOD 08/30/2024 9:25 AM [facility] Blood Venous blood specimen / Unknown 08/29/2024 08/30/2024 9:03 AM EST Mary ROE LAB BLOOD ORDERABLES Final Result Performing Organization Address City/[facility]/ZIP Co de Phone Number [facility] [address] [place] [address], [place] [phone] * (ABNORMAL) Comprehensive metabolic panel (08/29/2024 12:00 AM EST) [facility] Sodium 138 133 - 145 mmol/L LAB CHEMISTRY METHOD 08/30/2024 9:25 AM [facility] Potassium 4.8 3.5 - 5.5 mmol/L LAB CHEMISTRY METHOD 08/30/2024 9:25 AM [facility] Chloride 105 96 - 110 mmol/L LAB CHEMISTRY METHOD 08/30/2024 9:25 AM [facility] CO2 27 21 - 32 mmol/L LAB CHEMISTRY METHOD 08/30/2024 9:25 AM [facility] Anion Gap 6 3 - 11 LAB CHEMISTRY METHOD 08/30/2024 9:25 AM [facility] Glucose 104(H) 70 - 100 mg/dL LAB CHEMISTRY METHOD 08/30/2024 9:25 AM [facility] BUN 26(H) 5 - 25 mg/dL LAB CHEMISTRY METHOD 08/30/2024 9:25 AM [facility] Creatinine 1.10 0.70 - 1.30 mg/dL LAB CHEMISTRY METHOD 08/30/2024 9:25 AM [facility] eGFR 77 >=60 mL/min/1. 73m2 LAB CHEMISTRY METHOD 08/30/2024 9:25 AM [facility] Comment:Calculation based on the??Chronic Kidney Disease Epidemiology Collaboration (CKD-EPI) equation refit??without adjustment for race. BUN/Creatinine Ratio 23.6 LAB CHEMISTRY METHOD 08/30/2024 9:25 AM [facility] Calcium 9.4 8.5 - 10.5 mg/dL LAB CHEMISTRY METHOD 08/30/2024 9:25 AM [facility] AST (SGOT) 16 10 - 42 unit/L LAB CHEMISTRY METHOD 08/30/2024 9:25 AM [facility] ALT (SGPT) 24 10 - 60 unit/L LAB CHEMISTRY METHOD 08/30/2024 9:25 AM [facility] Alkaline Phosphatase 91 42 - 121 unit/L LAB CHEMISTRY METHOD 08/30/2024 9:25 AM [facility] Total Protein 7.7 6.0 - 8.0 g/dL LAB CHEMISTRY METHOD 08/30/2024 9:25 AM [facility] Albumin 4.0 3.2 - 5.0 g/dL LAB CHEMISTRY METHOD 08/30/2024 9:25 AM [facility] Total Bilirubin 0.2 0.0 - 1.4 mg/dL LAB CHEMISTRY METHOD 08/30/2024 9:25 AM [facility] Blood Venous blood specimen / Unknown 08/29/2024 08/30/2024 9:03 AM EST us Mary ROE LAB BLOOD ORDERABLES Final Result [facility] [address] [place] [address], documented in this encounter Visit Diagnoses Diagnosis Cellulitis, unspecified documented in this encounter Care Teams Owner Spa Director Relationship Specialty Start Date End Date Vicenta Nielsen FNP [address] [place] [phone] PCP - General 05/26/24 documented as of this encounter
== END 2025-01-31 15:06 | disposition home or self-care (01) ==
LOC: HO.HCS 14:07
PROVIDERS: PCP Nurse Practitioner Family; Visit Provider Internal Medicine
DX: R07.89 Other chest pain (principal); E11.8 Type 2 diabetes mellitus with unspecified complications; Z79.4 Long term (current) use of insulin; Z86.79 Personal history of other diseases of the circulatory system
CPT/HCPCS: 93010; 99214

== ENCOUNTER → 2025-01-31 14:06 | Outpatient (BNVA) | payer MEDICAID, SELFPAY | PROVIDERS: PCP Nurse Practitioner Family; Visit Provider Internal Medicine | DX: R00.2 Palpitations (principal); R07.89 Other chest pain; E11.9 Type 2 diabetes mellitus without complications; Z87.891 Personal history of nicotine dependence; Z86.79 Personal history of other diseases of the circulatory system; Z79.4 Long term (current) use of insulin | CPT/HCPCS: 93005; 99212 ==

== ENCOUNTER → 2025-04-16 08:48 | Outpatient (REF) | payer MEDICAID, SELFPAY ==
--- NOTE | ~2025-04-16 | NM_ITS ---
Lexiscan Myocardial perfusion study Indication: Chest pain Technique: The patient was brought in for a Lexiscan perfusion study on 04/16/2025 and was injected 0.4 mg of Lexiscan intravenously. Within a minute of this injection 40 mCi of sestamibi was given intravenously. Images were obtained using the SPECT gamma camera interlaced with the gating device. Images were obtained in supine position. Resting perfusion study was performed on 04/18/2025. Patient was administered 40 mCi of sestamibi intravenously at rest. Images were then obtained in supine position. Total DLP 171 mGy-cm. Images were processed with the software and compared side to side in short axis, horizontal long axis and vertical long axis views. Findings: Raw aquisition reviewed. Arms by the patient's side. The stress perfusion study showed no significant perfusion abnormality. Both uncorrected as well as CT attenuation corrected images were reviewed. The gated study shows calculated LVEF of 47%, but visually appears higher. LV cavity is normal in size. The gated study shows normal wall thickening and contraction of segments. Resting study shows no significant perfusion abnormality. Gating at rest reveals normal wall motion with ejection fraction at 54%. The findings are consistent with no clear reversible or fixed perfusion defects. NM/NM cardiolite stress test Impression: 1. Myocardial perfusion imaging study shows probably normal myocardial perfusion. 2. Gated LVEF is 47% during stress, visually appears higher; 54% during rest. 3. Transient ischemic dilatation not present. EKG component of the test reported separately. Electronically signed by: Oleg Denny MD 04/18/2025 11:21 AM EDT
--- NOTE | 2025-04-16 08:53 | CA_ITS ---
Acquisition Time: 2025-04-16 10:13:53 Total Exercise Time: 00:02:00 Test Indications: precordial pain. type 2 diabetes mellitus Medications: see med sheet Protocol: LEXISCAN Max HR: 129 BPM 80% of Pred: 161 BPM Max BP: 158/70 mmHG Max Work Load: 1.0 METS Pharmacological stress test with Lexiscan while pt moves his arm, with reports of nausea, SOB, dizziness and headache, with isolated PVCs, with normotensive response to injection. Nondiagnostic EKG for ischemia. In recovery, pt treated with IVP Aminophylline 75 mg to reverse Lexiscan after which pt feeling back to baseline. Nuclear images pending. Test reviewed with Dr. Denny. Referred By: Oleg Denny Electronically Signed By: Milind Olvera
--- OUTSIDE RECORDS SUMMARY | 2025-04-16 08:58 | XMS_ITS | Encounter Summary ---
Author Organization [facility] [place] [address] Care Team Providers Care Branch Retail Executive Name Role Phone Vicenta Nielsen RAZ Primary Care Provider [phone] Encounter Details Date Type Department Care Team (Late st Contact Info) Description 08/07/[address] [facility] - Main Lab [address] [place] [address] Mary Song MD [address] [address] Obesity, unspecified Social History Tobacco Use Types [...] Care Team (Late st Contact Info) Description 04/26/2025 11:00 AM EDT Treatment [facility] [address] [address] Jason Hernandez, SAUSAGE S[employer]ER 05/03/2025 11:00 AM EDT Treatment [facility] [address] [phone] Jason Hernandez, SAUSAGE SMOKER 05/08/2025 10:30 AM EDT Treatment [facility] [address] [phone] Yoav Freitas, PT 05/10/2025 10:45 AM EDT Treatment [facility] [address] [phone] Yoav Freitas, PT documented as of this [...] CBC auto differential (08/07/2024 12:00 AM EST) WBC 5.4 4.8 - 10.8 K/mcL LAB HEMETOLOGY METHOD 08/07/2024 7:14 PM [facility] RBC 3.80(L) 4.50 - 5.50 M/mcL LAB HEMETOLOGY METHOD 08/07/2024 7:14 PM [facility] Hemoglobin 9.9(L) 13.5 - 17.5 g/dL LAB HEMETOLOGY METHOD 08/07/2024 7:14 PM [facility] Hematocrit 31.4(L) 42.0 - 54.0 % LAB HEMETOLOGY METHOD 08/07/2024 7:14 PM [facility] MCV 83.7 79.0 - 98.0 FL LAB HEMETOLOGY METHOD 08/07/2024 7:14 PM [facility] LAB MCH 26.4(L) 27.0 - 32.0 pcg LAB HEMETOLOGY METHOD 08/07/2024 7:14 PM [facility] MCHC 31.5(L) 32.0 - 37.0 g/dL LAB HEMETOLOGY METHOD 08/07/2024 7:14 PM [facility] RDW 14.6 11.0 - 15.0 % LAB HEMETOLOGY METHOD 08/07/2024 7:14 PM [facility] Platelets 186 130 - 400 K/mcL LAB HEMETOLOGY METHOD 08/07/2024 7:14 PM [facility] MPV 12.0(H) 7.0 - 11.0 FL LAB HEMETOLOGY METHOD 08/07/2024 7:14 PM [facility] NRBC 0.0 <1.0 % LAB HEMETOLOGY METHOD 08/07/2024 7:14 PM [facility] NRBC Absolute 0.00 <0.10 K/mcL LAB HEMETOLOGY METHOD 08/07/2024 7:14 PM [facility] Neutrophils Relative 59.9 % LAB HEMETOLOGY METHOD 08/07/2024 7:14 PM [facility] Lymphocytes Relative 25.9 % LAB HEMETOLOGY METHOD 08/07/2024 7:14 PM [facility] Monocytes Relative 9.6 % LAB HEMETOLOGY METHOD 08/07/2024 7:14 PM [facility] Eosinophils Relative 3.5 % LAB HEMETOLOGY METHOD 08/07/2024 7:14 PM [facility] Basophils Relative 0.9 % LAB HEMETOLOGY METHOD 08/07/2024 7:14 PM [facility] Immature Granulocytes Relative 0.2 % LAB HEMETOLOGY METHOD 08/07/2024 7:14 PM [facility] Neutrophils Absolute 3.26 1.50 - 7.00 K/mcL LAB HEMETOLOGY METHOD 08/07/2024 7:14 PM EST [facility] Lymphocytes Absolute 1.41 1.00 - 5.00 K/[facility] LAB HEMETOLOGY METHOD 08/07/2024 7:14 PM EST [facility] Monocytes Absolute 0.52 0.20 - 1.00 K/mcL LAB HEMETOLOGY METHOD 08/07/2024 7:14 PM EST [facility] Eosinophils Absolute 0.19 0.00 - 0.50 K/[facility] LAB HEMETOLOGY METHOD 08/07/2024 7:14 PM EST [facility] Basophils Absolute 0.05 0.00 - 0.20 K/[facility] LAB HEMETOLOGY METHOD 08/07/2024 7:14 PM EST [facility] Immature Granulocytes Absolute 0.01 0.00 - 0.03 K/[facility] LAB HEMETOLOGY METHOD 08/07/2024 7:14 PM EST [facility] Blood Venous blood specimen / Unknown Venipuncture / Unknown 08/07/2024 08/07/2024 7:01 PM EST Mary Song MD LAB BLOOD ORDERABLES Final Result [facility] [address] [place] [address], * Creatine kinase (08/07/2024 12:00 AM EST) Pathologist [facility] Total CK 48 22 - 269 unit/L LAB CHEMISTRY METHOD 08/07/2024 7:36 PM EST [facility] Blood Venous blood specimen / Unknown Venipuncture / Unknown 08/07/2024 08/07/2024 7:01 PM EST us Mary Song MD LAB BLOOD ORDERABLES Final Result [facility] [address] [place] [address], * (ABNORMAL) Comprehensive metabolic panel (08/07/2024 12:00 AM EST) Sodium 135 133 - 145 mmol/L LAB CHEMISTRY METHOD 08/30/2024 9:16 AM [facility] Potassium 4.6 3.5 - 5.5 mmol/L LAB CHEMISTRY METHOD 08/30/2024 9:16 AM [facility] Chloride 101 96 - 110 mmol/L LAB CHEMISTRY METHOD 08/30/2024 9:16 AM [facility] CO2 28 21 - 32 mmol/L LAB CHEMISTRY METHOD 08/30/2024 9:16 AM [facility] Anion Gap 6 3 - 11 LAB CHEMISTRY METHOD 08/30/2024 9:16 AM [facility] Glucose 252(H) 70 - 100 mg/dL LAB CHEMISTRY METHOD 08/30/2024 9:16 AM [facility] BUN 29(H) 5 - 25 mg/dL LAB CHEMISTRY METHOD 08/30/2024 9:16 AM [facility] Creatinine 1.00 0.70 - 1.30 mg/dL LAB CHEMISTRY METHOD 08/30/2024 9:16 AM [facility] eGFR 87 >=60 mL/min/1. 73m2 LAB CHEMISTRY METHOD 08/30/2024 9:16 AM [facility] Comment:Calculation based on the Chronic Kidney Disease Epidemiology Collaboration (CKD-EPI) equation refit without adjustment for race. BUN/Creatinine Ratio 29.0 LAB CHEMISTRY METHOD 08/30/2024 9:16 AM [facility] Calcium 9.5 8.5 - 10.5 mg/dL LAB CHEMISTRY METHOD 08/30/2024 9:16 AM [facility] AST (SGOT) 14 10 - 42 unit/L LAB CHEMISTRY METHOD 08/30/2024 9:16 AM [facility] ALT (SGPT) 22 10 - 60 unit/L LAB CHEMISTRY METHOD 08/30/2024 9:16 AM EST [facility] Alkaline Phosphatase 82 42 - 121 unit/L LAB CHEMISTRY METHOD 08/30/2024 9:16 AM [facility] Total Protein 7.4 6.0 - 8.0 g/dL LAB CHEMISTRY METHOD 08/30/2024 9:16 AM [facility] Albumin 3.7 3.2 - 5.0 g/dL LAB CHEMISTRY METHOD 08/30/2024 9:16 AM [facility] Total Bilirubin 0.2 0.0 - 1.4 mg/dL LAB CHEMISTRY METHOD 08/30/2024 9:16 AM [facility] Blood Venous blood specimen / Unknown Venipuncture / Unknown 08/07/2024 08/07/2024 7:01 PM EST Mary Song MD LAB BLOOD ORDERABLES Edite d Result - Final [facility] [address] [place] [address], documented in this encounter Visit Diagnoses Diagnosis Obesity, unspecified documented in this encounter Care Teams Branch Retail Executive Relationship Specialty Start Date End Date Vicenta Nielsen FNP [address] [place] [phone] PCP - General 05/26/24 documented as of this encounter
--- OUTSIDE RECORDS SUMMARY | 2025-04-16 08:58 | XMS_ITS | Encounter Summary ---
Author Organization [facility] Address [address] [place] [address] Care Team Providers Care Administrative Assistant Receptionist Name Role Phone Vicenta Nielsen Primary Care Provider [phone] Encounter Details Date Type Department Care Team Description 05/30/[address] [facility] Oncology Services [address] [place] [address] Claude Resendiz, [facility] Social History Tobacco Use Types Packs/Day Years [...] on filedocumented in this encounter Care Teams Administrative Assistant Receptionist Relationship Specialty Start Date End Date Vicenta Nielsen [address] [place] [phone] PCP - General Family Medicine 05/26/24 documented as of this encounter
--- OUTSIDE RECORDS SUMMARY | 2025-04-16 08:58 | XMS_ITS | Encounter Summary ---
Author Organization [employer] Address [address] [place] [address] 7 [place] [address] Care Team Providers Care Hand Mixer Name Role Phone Valery Berrios MD Primary Care Provider [phone] Vicenta Nielsen NP Primary Care Provider [phone] Reason for Visit * Reason Onset Date Comments PT1 07/16/2023 Encounter Details Date Type Department Care Team ([facility] st Contact Info) Description 07/16/2023 Telephone [facility] CHC MED & PEDS [address] [place] [address] Valery Berrios MD [address] [place] [address] PT1 Social History Tobacco Use Types Packs/Day [...] Date: n/a Time: n/a Visits: n/a Address: [address] [place] [address] Facility: [facility] Chair: n/a Director Market Research Needed: no documented in this encounter Plan of Treatment Not on file documented as of this encounter Visit Diagnoses Not on filedocumented in this encounter Additional Health Concerns Assessment Noted Time PHQ-9 Depression Total Score: 0 10/20/19 23 2:41 PM EST documented as of this encounter Care Teams Hand Mixer Relationship Specialty Start Date End Date Valery Berrios MD [address] [place] [address] PCP - General Internal Medicine 12/01/18 12/21/23 Vicenta Nielsen NP [address] [place] [address] PCP - General Family Medicine 12/22/23 [facility] Moneythink 04/29/24 abigail mcneill Sales SuperintendentInstrument Person 10/18/24 documented as of this encounter
== END ==
LOC: HO.CARD 08:48
PROVIDERS: PCP Nurse Practitioner Family; Visit Provider Internal Medicine
DX: R07.2 Precordial pain (principal); I20.9 Angina pectoris, unspecified; E11.9 Type 2 diabetes mellitus without complications; R00.2 Palpitations; Z79.4 Long term (current) use of insulin; Z88.1 Allergy status to other antibiotic agents; Z91.041 Radiographic dye allergy status; Z86.79 Personal history of other diseases of the circulatory system; Z85.29 Personal history of malignant neoplasm of other respiratory and intrathoracic organs
CPT/HCPCS: 78452; 93017; A9500; J0280; J2785

== ENCOUNTER → 2025-04-16 08:53 | Outpatient (BNV) | payer MEDICAID, SELFPAY | PROVIDERS: PCP Nurse Practitioner Family | DX: R06.02 Shortness of breath (principal); I49.3 Ventricular premature depolarization | CPT/HCPCS: 78452; 93016; 93018 ==

== ENCOUNTER 2025-04-23 05:54 | Day surgery (SDC) | payer MEDICAID, SELFPAY ==
--- OUTSIDE RECORDS SUMMARY | 2025-03-15 17:35 | XMS_ITS | Encounter Summary ---
Author Organization [employer] Address [address] [place] [address] 7 [place] [address] Care Team Providers Care Gis Web Developer Name Role Phone Valery Berrios MD Primary Care Provider [phone] Vicenta Nielsen NP Primary Care Provider [phone] Reason for Visit * Reason Onset Date Comments PT1 07/16/2023 Encounter Details Date Type Department Care Team ([facility] st Contact Info) Description 07/16/2023 Telephone [facility] CHC MED & PEDS [address] [place] [address] Valery Berrios MD 505 [place] [address] PT1 Social History Tobacco Use Types Packs/Day Years Used Date Smoking Tobacco: Every Day Cigarettes Smokeless Tobacco: Never Depression Answer Date Recorded Patient Health Questionnaire-9 Score 0 10/20/2022 Housing Stability Answer Date Recorded What is your housing situation today? I do not have housing (Staying with others, in a hotel, in a assisted, living outside on the street, on a [...] Date: n/a Time: n/a Visits: n/a Address: [address] [place] [address] Facility: [facility] Chair: n/a Kettle Cook Needed: no documented in this encounter Plan of Treatment Upcoming Encounters Date Type Department Care Team (Late st Contact Info) Description 04/13/2025 11:15 AM EDT Office Visit [facility] MEDICINE [address] [place] [address] Vicenta Nielsen NP [address] [place] [address] documented as of this encounter Visit Diagnoses Not on filedocumented in this encounter Additional Health Concerns Assessment Noted Time PHQ-9 Depression Total Score: 0 10/20/19 23 2:41 PM EST documented as of this encounter Care Teams Gis Web Developer Relationship Specialty Start Date End Date Valery Berrios MD [address] [place] [address] PCP - General Internal Medicine 12/01/18 12/21/23 Vicenta Nielsen NP [address] [place] [address] PCP - General Family Medicine 12/22/23 Guidefitter 04/29/24 abigail mcneill Foot TenderElectrical Apprentice 10/18/24 documented as of this encounter
[2025-04-17 08:34] VITALS: BMI 42.1
--- NOTE | 2025-04-19 13:19 | HO.ANESPROP2 ---
Documented by User: Annette Dugan NP 04/19/25 13:23 HPI - Anesthesia Eval Consult details Narrative: 59yo M for Left Cataract Extraction IOL Insertion No previous cataract on record Methadone daily of OUD Medically optimized per PCP 01/2025 eval with [facility] Cardiology - nuc stress OK 04/2025 PMFSH Active Problems Active Problems: All Active Problems Atypical chest pain (Acute) History of endocarditis (Acute) Controlled type 2 diabetes mellitus with insulin therapy (Acute) Osteomyelitis (Acute) Cellulitis (Acute) Type 2 diabetes mellitus with insulin therapy (Acute) High cholesterol (Acute) HTN (hypertension) (Acute) Past Medical History Medical History (Updated 04/17/25 @ 08:48 by Nelsy Ashford RN) Amputated right leg Wheelchair dependent History of MRSA infection Anxiety Panic attacks Opioid dependence in remission COPD (chronic obstructive pulmonary disease) Type 2 diabetes mellitus with insulin therapy History of opioid abuse Hx of hepatitis C Amputated toe Osteomyelitis Asthma High cholesterol Kidney stones HTN (hypertension) Family History Family History (Updated 01/31/25 @ 14:27 by Radha Johnson) Mother Stroke Dementia Father Diabetes Surgical History Surgical History (Updated 04/17/25 @ 08:32 by Nelsy Ashford RN) Hx of cystoscopy Hx of foot surgery History of right lower limb amputation History of lithotripsy Social History Social History (Updated 01/31/25 @ 14:29 by Radha Johnson) Household Members: Family Housing: House Do you presently have visiting nurse or other home services: Yes ([facility] and [facility]) Alcohol intake: current Alcohol intake frequency: holidays/special occasions only Patient Tobacco Use Status: Former Tobacco user Tobacco use type: Cigarette Second Hand Smoke Exposure: No Substance Use Type: Crack/Cocaine and Marijuana Substance Use Type Other:: taking methadone Have you been hit, kicked, punched, or otherwise hurt by someone within the past year? If so, by whom?: No Spiritual Healthcare Practices: no Yazidi Healthcare Practices: no Cultural Healthcare Practices: no Are you DNR?: No Advance Directives: Yes Advance Directives Information Provided: Yes Advance Directives on File: Yes Advance Directives Date on File: 07/12/24 Poor oral hygiene: Yes service: No Current occupational status: unemployed Meds Allergies Allergy/AdvReac Type Severity Reaction Status Date / Time bee venom protein (honey bee) Allergy Severe Anaphylaxis Verified 12/15/24 10:00 erythromycin base Allergy Intermediate Rash Verified 12/15/24 10:00 Iodinated Contrast Media AdvReac Intermediate Shortness Verified 12/15/24 10:00 of Breath Home Medications ?Medication ?Instructions ?Recorded ?Confirmed ?Last Taken ?Type blood sugar diagnostic (FreeStyle #10 ea 12/17/22 12/15/24 Unknown History Lite Strips) lancets 33 gauge (TRUEplus Lancets) #100 ea 12/17/22 12/15/24 Unknown History pen needle, diabetic 32 gauge x #50 ea 12/17/22 12/15/24 Unknown History 10/07 (Easy Touch) insulin lispro 100 unit/mL 2 - 17 unit subcut TID 07/01/23 04/17/25 07/11/24 History subcutaneous pen atorvastatin 20 mg tablet 20 mg PO BEDTIME 07/11/24 04/17/25 07/10/24 History polyethylene glycol 3350 17 17 g PO DAILY 07/11/24 04/17/25 07/11/24 History gram/dose oral powder methadone 10 mg/mL oral 78 mg PO DAILY 12/15/24 04/17/25 Unknown History concentrate (Methadone Intensol) insulin degludec 100 unit/mL (3 20 unit subcut BID 04/17/25 04/17/25 Unknown History mL) subcutaneous pen (Tresiba FlexTouch U-100 insulin) Exam Height,Weight and Vital Signs: Height 5 ft 9 in Weight 129.274 kg Pertinent Lab Results Pertinent Lab Results: Laboratory Tests 04/04/25 15:22 WBC 8.0 Hgb 10.7 L Hct 30.9 L Plt Count 209 Sodium 133 L Potassium 5.3 H Chloride 97 Carbon Dioxide 27 BUN 20 H Creatinine 0.83 Narrative Narrative: EKG Details: EKG with sinus rhythm at 88/Min; no significant ST-T changes and otherwise unremarkable. Normal [place] and corrected QT. NM cardiolite stress test 04/2025 Impression: 1. Myocardial perfusion imaging study shows probably normal myocardial perfusion. 2. Gated LVEF is 47% during stress, visually appears higher; 54% during rest. 3. Transient ischemic dilatation not present. EKG component of the test reported separately. ECHO 01/2025 Conclusions: - Due to poor endocardial definition, LVEF difficult to assess. Suspect >50%. - No obvious valvular pathology seen on this study. Findings Left Ventricle Normal left ventricular cavity size. There is mildly increased left ventricular wall thickness. Regional wall motion abnormalities can not be excluded due to suboptimal endocardial definition. Diastolic function is normal for age. Due to poor endocardial definition, LVEF difficult to assess. Suspect >50%. LV peak GLS -15.3%, mildly reduced. Assessment and Plan Assessment Anesthesia Assessment: Chart Reviewed Documented by User: Radha Pollard MD 04/23/25 07:07 [facility] Past Medical History Medical History (Updated 04/17/25 @ 08:48 by Nelsy Ashford RN) Amputated right leg Wheelchair dependent History of MRSA infection Anxiety Panic attacks Opioid dependence in remission COPD (chronic obstructive pulmonary disease) Type 2 diabetes mellitus with insulin therapy History of opioid abuse Hx of hepatitis C Amputated toe Osteomyelitis Asthma High cholesterol Kidney stones HTN (hypertension) Family History Family History (Updated 01/31/25 @ 14:27 by Radha Johnson) Mother Stroke Dementia Father Diabetes Family history of problems with anesthesia: No Surgical History Surgical History (Updated 04/17/25 @ 08:32 by Nelsy Ashford RN) Hx of cystoscopy Hx of foot surgery History of right lower limb amputation History of lithotripsy History of Problems with Anesthesia: No Social History Social History (Updated 01/31/25 @ 14:29 by Radha Johnson) Household Members: Family Housing: House Do you presently have visiting nurse or other home services: Yes ([facility] and [facility]) Alcohol intake: current Alcohol intake frequency: holidays/special occasions only Patient Tobacco Use Status: Former Tobacco user Tobacco use type: Cigarette Second Hand Smoke Exposure: No Substance Use Type: Crack/Cocaine and Marijuana Substance Use Type Other:: taking methadone Have you been hit, kicked, punched, or otherwise hurt by someone within the past year? If so, by whom?: No Spiritual Healthcare Practices: no Yazidi Healthcare Practices: no Cultural Healthcare Practices: no Are you DNR?: No Advance Directives: Yes Advance Directives Information Provided: Yes Advance Directives on File: Yes Advance Directives Date on File: 07/12/24 Poor oral hygiene: Yes service: No Current occupational status: unemployed Meds Allergies Allergy/AdvReac Type Severity Reaction Status Date / Time bee venom protein (honey bee) Allergy Severe Anaphylaxis Verified 12/15/24 10:00 erythromycin base Allergy Intermediate Rash Verified 12/15/24 10:00 Iodinated Contrast Media AdvReac Intermediate Shortness Verified 12/15/24 10:00 of Breath Home Medications ?Medication ?Instructions ?Recorded ?Confirmed ?Last Taken ?Type blood sugar diagnostic (FreeStyle #10 ea 12/17/22 12/15/24 Unknown History Lite Strips) lancets 33 gauge (TRUEplus Lancets) #100 ea 12/17/22 12/15/24 Unknown History pen needle, diabetic 32 gauge x #50 ea 12/17/22 12/15/24 Unknown History 1/4 (Easy Touch) insulin lispro 100 unit/mL 2 - 17 unit subcut TID 07/01/23 04/17/25 07/11/24 History subcutaneous pen atorvastatin 20 mg tablet 20 mg PO BEDTIME 07/11/24 04/17/25 07/10/24 History polyethylene glycol 3350 17 17 g PO DAILY 07/11/24 04/17/25 07/11/24 History gram/dose oral powder methadone 10 mg/mL oral 78 mg PO DAILY 12/15/24 04/17/25 Unknown History concentrate (Methadone Intensol) insulin degludec 100 unit/mL (3 20 unit subcut BID 04/17/25 04/17/25 Unknown History mL) subcutaneous pen (Tresiba FlexTouch U-100 insulin) Exam Airway Mallampati Class: II (poor dentition, denies anything loose) TM Dist: >3cm Neck ROM: Full Heart: rrr Lungs: cta Assessment and Plan Assessment Anesthesia Assessment: Anesthesia Plan Discussed Final Anesthetic Review Family History of Problems with Anesthesia: No History of Problems with Anesthesia: No NPO: Yes ASA Class: III Final Preanesthetic Review: No Changes in Pt Med Stat, Meds/Allgs Chart Reviewed and Consent Obtained/Reviewed Patient Risk: Intermediate Procedure Risk: Low Anesthetic Plan Anesthetic Plan: MAC: Disposition: Standard PACU
[2025-04-23 06:31] VITALS: BP 146/76; PULSE 89; RESP 16; TEMP 36.4; O2SAT 94
[2025-04-23] MEDS: Lactated Ringers 500 ML 50 ML IV (06:37)
[2025-04-23] MEDS: Cyclopentolate 1 % Ophth Sol 2 ML DRPBTL 1 DROP EYE-LEFT ×3 (06:38→06:46)
[2025-04-23] MEDS: Tetracaine HCl/PF 0.5% Oph Sol 4 ML DROPS 1 DROP EYE-LEFT (06:38)
[2025-04-23] MEDS: Tropicamide 1 % Ophth Sol 3 ML BTL 1 DROP EYE-LEFT ×3 (06:39→06:46)
[2025-04-23] MEDS: Ketorolac Tromethamine 0.5% Op 5 ML DROPS 1 DROP EYE-LEFT ×3 (06:40→06:47)
[2025-04-23] MEDS: Phenylephrine HCL 2.5% Oph SoL 2 ML BOTTLE 1 DROP EYE-LEFT ×3 (06:41→06:48)
[2025-04-23 06:57] LABS: Glucose, Whole Blood 210 mg/dL (60-115)
--- NOTE | 2025-04-23 07:28 | MHC.SHP ---
Pre-Procedural Eval Section A - 24 Hr Update-Section A only Date of Service: 04/23/25 The patient is an INPATIENT: No Changes since office visit: No Cold of Flu in the past 2 weeks, No New Medical Problems, No Changes in Medication and No Patient answered all questions The patient has been examined within 24 hours of the surgical procedure. The History & Physical has been completed within 30 days and I have reviewed it.: Yes Section B - Complete if H&P > 30 days Chief Complaint: Age-related nuclear cataract, left eye Allergies: Allergies Allergy/AdvReac Type Severity Reaction Status Date / Time bee venom protein (honey bee) Allergy Severe Anaphylaxis Verified 12/15/24 10:00 erythromycin base Allergy Intermediate Rash Verified 12/15/24 10:00 Iodinated Contrast Media AdvReac Intermediate Shortness Verified 12/15/24 10:00 of Breath Plan Diagnosis/Plan: Unchanged I have reviewed the history and physical and performed a pertinent physical examination on my patient. No changes have occurred unless specified. Time Spent With Patient Time: Total time managing care of this patient today ____ minutes.
--- NOTE | 2025-04-23 07:28 | HO.PNOPHT ---
Ophthalmology Procedure Procedure Date of Service: 04/23/25 Ophthalmology Viscoelastic: Healon Duet Dual Pack Pro Ophthalmology Lenses: IOL Acrysof MP - MA60AC (19) Procedure Notes: PREOPERATIVE DIAGNOSIS: Decreased visual acuity left eye secondary to cataract POSTOPERATIVE DIAGNOSIS: Same PROCEDURE: Left cataract extraction with intraocular lens insertion SURGEON: Mumtaz Carrillo M.D. ANESTHESIA: Topical/MAC ESTIMATED BLOOD LOSS: None COMPLICATIONS: None After obtaining informed consent, the patient was brought to the operation room suite and placed in the supine position. After adequate sedation per anesthesia, topical drops of Tetracaine were given to the left eye. The eye was then prepped and draped in the usual sterile fashion. The operating room microscope was then positioned over the operative eye and a lid speculum placed. A paracentesis was created. Viscoelastic was then instilled into the anterior chamber. A three plane incision was then created temporally, utilizing a 2.85 mm keratome. Capsulotomy forceps were then utilized to create a circular tear capsulotomy. Hydrodissection and hydrodelineation were carried out until adequate mobilization of the nucleus occurred. Phacoemulsification was then utilized to remove the dense central nucleus followed by removal of the cortical material utilizing the automated aspiration irrigation unit. Viscoat elastic was instilled into the posterior capsular bag followed by placement of a posterior chamber intraocular lens without difficulty. The residual Viscoat elastic was then removed utilizing the automated IA machine. The wound was check and found to be watertight. The patient tolerated the procedure well and the lid speculum was removed. Intracameral injection of Vigamox 0.1 mL followed by a subtenon injection of Kenalog-40 0.2 mL were administered. The patient will be seen in the a.m.
[2025-04-23 08:00] VITALS: BP 153/75; PULSE 90; RESP 16; TEMP 37.1; O2SAT 93
[2025-04-23 08:15] VITALS: BP 132/74; PULSE 93; RESP 20; TEMP 37; O2SAT 93
== END 2025-04-23 08:16 | disposition home or self-care (01) ==
PROVIDERS: PCP Nurse Practitioner Family; Visit Provider Ophthalmology
PROC: (CPT 66985; principal; 2025-04-23 07:30)
DX: H25.12 Age-related nuclear cataract, left eye (principal); H54.7 Unspecified visual loss; H50.52 Exophoria; H18.413 Arcus senilis, bilateral; H43.393 Other vitreous opacities, bilateral; I10 Essential (primary) hypertension; E11.9 Type 2 diabetes mellitus without complications; Z87.442 Personal history of urinary calculi; E07.9 Disorder of thyroid, unspecified; Z99.3 Dependence on wheelchair; Z89.431 Acquired absence of right foot; J44.9 Chronic obstructive pulmonary disease, unspecified; F41.0 Panic disorder [episodic paroxysmal anxiety]; M86.9 Osteomyelitis, unspecified; Z86.14 Personal history of Methicillin resistant Staphylococcus aureus infection; Z79.4 Long term (current) use of insulin; Z79.899 Other long term (current) drug therapy; F11.20 Opioid dependence, uncomplicated; Z88.1 Allergy status to other antibiotic agents; Z91.041 Radiographic dye allergy status; Z87.891 Personal history of nicotine dependence; Z56.0 Unemployment, unspecified
CPT/HCPCS: 66984; 82947; J2250; J3301; V2630

== ENCOUNTER 2025-05-11 10:06 | Outpatient (AMB) | payer MEDICAID, SELFPAY ==
--- OUTSIDE RECORDS SUMMARY | 2025-05-08 10:30 | XMS_ITS | Encounter Summary ---
Author Organization [facility] Address [address] [place] [address] Care Team Providers Care Cellar Hand Name Role Phone Vicenta Nielsen Primary Care Provider [phone] Reason for Visit * Consultation (Routine) - Authorized Specialty Diagnoses / Procedures Referred By Gina kwan Referred To Contact Physical Therapy Diagnoses Below-knee amputation of right lower extremity, initial encounter ([facility] V24, [facility] V28) Vicenta Nielsen FNP [address] [place] [address] Phone: tel: fax: [address] [address] Phone: tel: fax: Referral ID Status Reason Start Date Expiration Date Visits Requested Visits Authorized [id number] Authorized Specialty Services Required 11/20/2024 11/20/2025 20 20 Encounter Details Date Type Department Care Team (Late st Contact Info) Description 05/08/2025 10:30 AM EDT Treatment [address] [phone] Yoav Freitas, PT History of right below knee amputation ([facility] V24, [facility] V28) (Primary Dx) Social History Tobacco Use Types [...] on file documented as of this encounter Progress Notes * Yoav Freitas PT - 05/08/2025 10:30 AM EDT [facility] - Outpatient PHYSICAL THERAPY DAILY TREATMENT NOTE - OP Date: 05/08/2025 Visit Number: [id number] Patient Name: Bam Wise : 1965 Age: 59 y.o. Gender: male Diagnosis: No diagnosis found. Date of Onset/Surgery: 02/23/2025 Referring Provider: Vicenta Nielsen FNP Insurance: Pay[place] / Plan[place] / Product Type: *No Product type* / Patient Identified by: Yoav Freitas PT Language: Speaks and understands Polish as preferred language with no forestry support specialist required Medications: No current outpatient medications on file prior to visit. No current facility-administered medications on file prior to visit. Allergies: has no allergies on file. Precautions: Fall risk: Yes SUBJECTIVE Subjective Report: Pt states Left toe and lower leg wound are painful along with right knee. Pt states he has an appointment with wound care tomorrow and will find out about weight bearing status Chart Reviewed: Yes Pain: Right knee 8/10, Left foot 8/10 TREATMENT INTERVENTION: Nustep at level 7 x10 min. While on nustep, pt informed this PT of above complaints. Held further treatment and will await MD clarification of LLE weight bearing status before continuing with gait training for RLE ASSESSMENT/Response to Treatment Fair Held closed chain exercises due to left foot wound. Awaiting clarification from MD before continuing Patient Education: Education provided: WB status Education Provided To: Patient utilizing Explanation mode(s) of education Response to Education: Verbal Understanding PLAN POC Development/Review: No Change in the Plan of Care; Participants: Patient Interventions Time Entry: Modalities: Therapeutic procedures: Total Treatment Time: 15 Documentation completed by Yoav Freitas PT documented in this encounter Plan of Treatment Not on file documented as of this encounter Goals Goal Patient Goal Type Associated Problems Recent Progress Patient-Stated? Author PT LTGs General No Yoav Freitas, PT Note: Pt will ambulate with unilateral AD mod independent x200 ft Pt will complete FGA with unilateral AD Pt will be independent with HEP documented as of this encounter Visit Diagnoses Diagnosis History of right below knee amputation ([facility] V24, [facility] V28)- Primary documented in this encounter Care Teams Cellar Hand Relationship Specialty Start Date End Date Vicenta Nielsen FNP [address] [place] [phone] PCP - General 05/26/24 documented as of this encounter
--- OUTSIDE RECORDS SUMMARY | 2025-05-11 10:11 | XMS_ITS ---
Author Name [facility] Organization Unknown Encounters Encounter Type Encounter Reason Primary Diagnosis Location Date Ambulatory [facility] 07/14/2024 Care Team Organization Name Specialty Phone Email Start Date End Da te [facility] 2024
--- OUTSIDE RECORDS SUMMARY | 2025-05-11 10:11 | XMS_ITS | Encounter Summary ---
Author Organization [facility] Address [address] [place] [address] Care Team Providers Care Aesthetician Name Role Phone Vicenta Nielsen Primary Care Provider [phone] Encounter Details Date Type Department Care Team Description 05/30/2024 Social Work [facility] [address] [place] [address] Claude Resendiz, [facility] Social History Tobacco Use [...] on filedocumented in this encounter Care Teams Aesthetician Relationship Specialty Start Date End Date Vicenta Nielsen [address] [place] [phone] PCP - General Family Medicine 05/26/24 documented as of this encounter
--- OUTSIDE RECORDS SUMMARY | 2025-05-11 10:11 | XMS_ITS | Encounter Summary ---
Author Organization [employer] Address [address] [place] [address] [address] [place] [address] Care Team Providers Care Post Hole Digging Machine Operator Name Role Phone Valery Berrios MD Primary Care Provider [phone] Vicenta Nielsen NP Primary Care Provider [phone] Reason for Visit * Reason Onset Date Comments PT1 07/16/2023 Encounter Details Date Type Department Care Team ([facility] st Contact Info) Description 07/16/2023 Telephone [facility] PEDS [address] [place] [address] Valery Berrios MD [address] [place] [address] PT1 Social History Tobacco Use Types Packs/Day [...] Date: n/a Time: n/a Visits: n/a Address: [address] [place] [id number] Facility[facility] Chair: n/a Surgical Assistant Certified Needed: no documented in this encounter Plan of Treatment Upcoming Encounters Date Type Department Care Team (Late st Contact Info) Description 06/20/2025 11:30 AM EDT Office Visit [facility] MEDICINE [address] [place] [address] Vicenta Nielsen NP [address] [place] [address] documented as of this encounter Visit Diagnoses Not on filedocumented in this encounter Additional Health Concerns Assessment Noted Time PHQ-9 Depression Total Score: 0 10/20/19 23 2:41 PM EST documented as of this encounter Care Teams Post Hole Digging Machine Operator Relationship Specialty Start Date End Date Valery Berrios MD [address] [place] [phone] PCP - General Internal Medicine 12/01/18 12/21/23 Vicenta Nielsen NP [address] [place] [phone] PCP - General Family Medicine 12/22/[address] [facility] 04/29/24 [facility] RecruiterFusing Machine Tender 10/18/24 documented as of this encounter
[2025-05-11 10:13] VITALS: BP 138/62; PULSE 80
--- NOTE | 2025-05-11 10:13 | A.OFFVIS_ITS ---
Vital Signs 05/11/25 10:13 Height 5 ft 9 in BP 138/62 Blood Pressure Location Lt brachial Position Sitting Pulse 80 Pulse Source Pulse Oximeter Intake Visit Reasons: f/up [facility] HS Licensed Loan Officer Assistant Required: No Allergies bee venom protein (honey bee) Allergy (Severe, Verified 05/11/25 10:16) Anaphylaxis erythromycin base Allergy (Intermediate, Verified 05/11/25 10:16) Rash Iodinated Contrast Media Adverse Reaction (Intermediate, Verified 05/11/25 10:16) Shortness of Breath Medication List - Last Reconciled 05/11/25 by Pattie Chand NP-C atorvastatin 20 mg PO BEDTIME blood sugar diagnostic (FreeStyle Lite Strips) As directed 4 times a day blood-glucose sensor (FreeStyle Oumar 3 Sensor device) As directed blood-glucose,apprentice architect,cont (FreeStyle Oumar 3 [place]) As directed cyclobenzaprine 10 mg PO insulin degludec (Tresiba FlexTouch U-100 insulin) 20 units subcut BID insulin lispro 2 - 17 units subcut TID lancets (TRUEplus Lancets) As directed 4 times a day methadone (Methadone Intensol) 78 mg PO DAILY olmesartan-hydrochlorothiazide 40-25 mg 1 tab PO DAILY pen needle, diabetic (Easy Touch) As directed 5 times a day polyethylene glycol 3350 17 grams PO DAILY HPI HPI f/up [facility] records HS: Details: Bam is a 59-year-old male with past medical history of morbid obesity, hypertension, hyperlipidemia, diabetes, right BKA, PFO, endocarditis, atypical chest discomfort who presents for follow-up after recent nuclear stress test. Today he reports he has been doing generally well since his last visit in January. He has various reports of discomfort without clear anginal symptoms. He has shortness of breath with activity which is unchanged recently. He sleeps with his head of the bed elevated as he has an adjustable bed. He has chronic leg edema, left greater than right. No heart palpitations, lightheadedness, presyncope, syncope, falls. He uses an electric wheelchair. Not using prosthetic due to discomfort and his current obesity. He is trying to work on good diabetic control. He takes his medications as directed. REPLACED BY [facility] Medical History Amputated right leg Wheelchair dependent History of MRSA infection Anxiety Panic attacks Opioid dependence in remission COPD (chronic obstructive pulmonary disease) Type 2 diabetes mellitus with insulin therapy History of opioid abuse Hx of hepatitis C Amputated toe Osteomyelitis Asthma High cholesterol Kidney stones HTN (hypertension) Surgical History Hx of cystoscopy Hx of foot surgery History of right lower limb amputation History of lithotripsy Family History Mother Stroke Dementia Father Diabetes Social History Household Members: Family Housing: House Do you presently have visiting nurse or other home services: Yes ([facility]NA and IMMIGRATION GUARD) Alcohol intake: current Alcohol intake frequency: holidays/special occasions only Patient Tobacco Use Status: Former Tobacco user Tobacco use type: Cigarette Years Smoked: 30 Second Hand Smoke Exposure: No Substance Use Type: Crack/Cocaine and Marijuana Advance Directives Date on File: 07/12/24 service: No Current occupational status: unemployed Review of Systems Const All systems reviewed & are unremarkable except as noted in HPI and below ENT Denies dizziness Card Reports chest pain, Denies chest pain at rest, Denies chest pain with activity, Denies rapid heart rate, Reports pedal edema, Denies edema, Reports leg edema, Denies lightheadedness, Denies palpitations, Reports dyspnea, Reports dyspnea on exertion and Denies orthopnea Resp Denies cough, Reports dyspnea and Reports dyspnea on exertion GI Denies hematochezia and Denies change in stool character Musc Reports abnormal gait (in wheelchair), Denies limited range of motion, Denies muscle cramps, Reports muscle weakness, Denies numbness, Denies radiating pain into limb, Denies stiffness and Denies tingling Neuro Reports abnormal gait (in wheelchair), Denies dizziness, Denies numbness and Denies tingling Endo Denies palpitations Physical Exam Vital Signs: Last Vital Signs Pulse 80 05/11/25 10:13 BP 138/62 05/11/25 10:13 Const Other: morbidly obese, sitting in electric wheelchair, right BKA General: cooperative and no acute distress Orientation/consciousness: patient oriented x3 Resp Effort & Inspection: normal respiratory effort Auscultation: clear to auscultation bilaterally, no rales, no rhonchi and no wheezes Cardio Rate: regular rate Rhythm: regular rhythm Heart sounds: S1 normal heart sound present, S2 normal heart sound present, Murmur heart sound present (faint systolic murmur left sternal border) and no rubs GI Inspection: Yes distended and Yes obesity Neuro General: patient oriented x3 Extrem Other: edema of Left LE, compression wrap in use Psych Appearance: grossly normal Mental Status: mental status grossly normal Speech and movement: Normal speech and movement present Assessment & Plan Assessment & Plan (1) History of endocarditis: Code(s): Z86.79 - Personal history of other diseases of the circulatory system Category: Medical Plan: Hx of bactermia 02/2024 with transesophageal echocardiogram done at [facility] showing EF 55-60%, thickening of the aortic valve leaflet, not likely active endocarditis, possible healing vegetation. Most recent echocardiogram done 01/26/2025 showing EF greater than 50%, mild calcification of the aortic valve with no stenosis. No fevers, labs 04/04/2025 with normal white blood count. Test results reviewed with him. Needs endocarditis prophylaxis prior to dental work. (2) Aortic valve calcification: Code(s): I35.9 - Nonrheumatic aortic valve disorder, unspecified Category: Medical Plan: Recent echo with mild aortic valve calcification, no stenosis or regurgitation. (3) PFO (patent foramen ovale): Code(s): Q21.12 - Patent foramen ovale Category: Medical Plan: Noted on GABBY done at [facility] 02/21/24. No specific treatment needed (4) HTN (hypertension): Code(s): I10 - Essential (primary) hypertension Category: Medical Plan: BP goal < 130/80. Near goal at present. He would benefit from weight loss. Low salt diet reviewed. No med changes (5) High cholesterol: Code(s): E78.00 - Pure hypercholesterolemia, unspecified Category: Medical Plan: LDL goal < 70 in pt with DM. Labs 06/02/24 showed LDL 43. Followed by PCP. Continue Atorvastatin (6) Type 2 diabetes mellitus with insulin therapy: Comment: Lantus BID & Lispro TID w/meals Code(s): E11.9 - Type 2 diabetes mellitus without complications; Z79.4 - FDC (current) use of insulin Category: Medical Plan: hgbA1c goal < 7. Labs 04/04/25 showed LDL 7.8. Followed by PCP. Plan Time spent on chart review, documentation, interview assessment Coding Level of Care Code Est Pt Level 4 (75862) Complex EM visit Add On G2211 Diagnoses History of endocarditis Z86.79 Aortic valve calcification I35.9 PFO (patent foramen ovale) Q21.12 HTN (hypertension) I10 High cholesterol E78.00 Type 2 diabetes mellitus with insulin therapy E11.9; Z79.4 Time Spent (min) 32
== END 2025-05-11 10:46 | disposition home or self-care (01) ==
LOC: HO.HCS 10:06
PROVIDERS: PCP Nurse Practitioner Family; Visit Provider Nurse Practitioner Family
DX: Z86.79 Personal history of other diseases of the circulatory system (principal); I35.9 Nonrheumatic aortic valve disorder, unspecified; Q21.12 Patent foramen ovale; I10 Essential (primary) hypertension; E78.00 Pure hypercholesterolemia, unspecified; E11.9 Type 2 diabetes mellitus without complications; Z79.4 Long term (current) use of insulin
CPT/HCPCS: 99214

== ENCOUNTER → 2025-05-11 10:06 | Outpatient (BNVA) | payer MEDICAID, SELFPAY | PROVIDERS: PCP Nurse Practitioner Family; Visit Provider Nurse Practitioner Family | DX: Q21.12 Patent foramen ovale (principal); Z86.79 Personal history of other diseases of the circulatory system; I35.9 Nonrheumatic aortic valve disorder, unspecified; I10 Essential (primary) hypertension; E78.00 Pure hypercholesterolemia, unspecified; E11.9 Type 2 diabetes mellitus without complications; Z79.4 Long term (current) use of insulin; E66.9 Obesity, unspecified; R06.02 Shortness of breath | CPT/HCPCS: 99212 ==

== ENCOUNTER 2025-05-28 17:43 | Outpatient (REF) | payer MEDICAID, SELFPAY ==
--- OUTSIDE RECORDS SUMMARY | 2025-05-28 15:00 | XMS_ITS | Encounter Summary ---
Author Organization [employer] Address [address] [place] [address] 7[address] [place] [address] Care Team Providers Care Molecular Biologist Name Role Phone Vicenta Nielsen NP Primary Care Provider [phone] Reason for Referral * Consultation (Routine) - Authorized Specialty Diagnoses / Procedures Referred By Gina kwan Referred To Contact Urology Diagnoses Hematuria, unspecified type Digna Arcos ANP [address] [place] [address] Phone: tel: fax: [facility] Referral ID Status Reason Start Date Expiration Date Visits Requested Visits Authorized [id number] Authorized Specialty Services Required 05/28/2025 05/28/2026 1 1 Scheduling Instructions Appreciate urology eval for 59yo w/ hematuria, former smoker, +h/o kidney stones, UTIs Encounter Details Date Type Department Care Team (Late st Contact Info) Description 05/28/2025 3:00 PM EDT Office Visit [facility] [address] [place], [place] [phone] Digna Arcos ANP [address] [place], [place] [phone] Hematuria, unspecified type (Primary Dx); Dysuria; Hypertension associated with diabetes (CMS/HCC) Social History Tobacco Use Types Packs/Day Years Used Date Smoking Tobacco: Former Cigarettes Passive Smoke Exposure: Past Smokeless Tobacco: Never Alcohol Use Standard Drinks/Week Comments Never 0 (1 standard drink = 0.6 oz pur e alcohol) Depression Answer Date Recorded Patient Health Questionnaire-9 Score 7 04/11/2025 Patient Health Questionnaire-9 Score 7 04/11/2025 Last PHQ-9: Questionnaire Data Not on file 0 04/11/2025 Housing Stability Answer Date Recorded What is [...] Date Recorded Patient Health Questionnaire-2 Score 2 04/11/2025 Internet Access Answer Date Recorded Internet Access [...] Sign Reading Time Taken Comments Blood Pressure 150/80 05/28/2025 3:06 PM EDT Pulse 81 05/28/2025 3:06 PM EDT Temperature 36.2 C (97.2 F) 05/28/2025 3:06 PM EDT Respiratory Rate 20 05/28/2025 3:06 PM EDT Oxygen Saturation 95% 05/28/2025 3:06 PM EDT Inhaled Oxygen Concentration - - Weight 129 kg (285 lb) 05/28/2025 3:06 PM EDT Height 175.3 cm (5' 9 ) 05/28/2025 3:06 PM EDT Body Mass Index 42.09 05/28/2025 3:06 PM EDT documented in this encounter Progress Notes * Digna Arcos, ANP - 05/28/2025 3:00 PM EDT Subjective Patient ID: Bam Wise is a 59 y.o. male who presents for urinary sx. HPI PMH incl T2DM w/ morbid obesity, PVD, hypertension, hyperlipidemia, right BKA; PFO, endocarditis, atypical chest discomfort Needs endocarditis prophylaxis prior to dental work. Lab Results Component Value Date HGBA1C 7.9 (A) 04/11/2025 Here today for eval of urinary sx. From triage pt states having urinary symptoms and requesting a script. pt states urinary pain and pressure, mild redness on tip of penis, unable to empty completely which is chronic, and frequency/urgency. pt denies fever, penile discharge, strong odor, or other a ssociated symptoms Sx started a few days ago but worse this AM. Has h/o UTI, last > 1 yr ago. Appears treated here 08/2023 w/ cipro. Did cut his penis a tiny bit on urinal plastic. Former smoker Review of Systems Constitutional: Negative for chills and fever. HENT: Negative for sore throat. Respiratory: Negative for cough and shortness of breath. Cardiovascular: Negative for chest pain. Gastrointestinal: Negative for constipation and diarrhea. Endocrine: Negative for polydipsia, polyphagia and polyuria. Genitourinary: Positive for dysuria and hematuria. Negative for penile pain, penile swelling, scrotal swelling and testicular pain. Neurological: Negative for weakness. Objective BP (!) 150/80 (BP Location: Left arm, Patient Position: Sitting, BP Cuff Size: Adult) Pulse 81 Temp 97.2 ??F (36.2 ??C) (Oral) Resp 20 Ht 5' 9 (1.753 m) Wt 285 lb (129 kg) GiY935% BMI 42.09 kg/m?? Physical Exam Vitals reviewed. Constitutional: Appearance: Normal appearance. He is obese. HENT: Head: Normocephalic and atraumatic. Eyes: General: No scleral icterus. Extraocular Movements: Extraocular movements intact. Pupils: Pupils are equal, round, and reactive to light. Cardiovascular: Rate and Rhythm: Normal rate and regular rhythm. Abdominal: Tenderness: There is no right CVA tenderness or left CVA tenderness. Neurological: Mental Status: He is alert. Psychiatric: Mood and Affect: Mood normal. Behavior: Behavior normal. Seated in wheelchair R BKA Legs in compression wraps Assessment/Plan Diagnoses and all orders for this visit: Dysuria UA here w/ hematuria but no nit, leuks Office Visit on 05/28/2025 Component Date Value Ref Range Status Color, UA 05/28/2025 Yellow Final Clarity, UA 05/28/2025 Clear Final Glucose, UA 05/28/2025 Negative Final Bilirubin, UA 05/28/2025 Negative Final Ketones, UA 05/28/2025 Negative Final Spec Grav, UA 05/28/2025 1.020 Final Blood, UA 05/28/2025 Positive (A) Negative, None Detected Final pH, UA 05/28/2025 7.0 Final Protein, UA 05/28/2025 Trace Final Urobilinogen, UA 05/28/2025 0.2 Final Leukocytes, UA 05/28/2025 Negative Negative, Rare, Trace Final Nitrite, UA 05/28/2025 Negative Negative, None Detected Final Appearance, UA 05/28/2025 clear Final QC Media Lot # 05/28/2025 [id number] Final Lot# Expiration Date 05/28/2025 [id number] Final Will await cx for abx consideration (likely levoflox 250mg daily x 5d) Gave pyridium for pain Cont good hydration Will refer to urology for hematuria Gave urine kit to repeat if needed - pt feels very sure his AM urine would show something. - Urinalysis, Complete, with Reflex to Culture - POCT urinalysis dipstick manually resulted Hematuria Urology referral HTN Cont home meds, low salt diet, home monitoring Future Appointments Date Time Provider Department Center 06/20/2025 11:30 AM Vicenta Nielsen NP MEDICINE [facility] documented in this encounter Plan of Treatment Upcoming Encounters Date Type Department Care Team (Late st Contact Info) Description 06/20/2025 11:30 AM EDT Office Visit [facility] [address] [place] [phone] Vicenta Nielsen NP [address] [place] [address] Scheduled Orders Name Type Priority Associated Diagnoses Orde r Schedule Urinalysis, Complete, with Reflex to Culture Lab Routine Dysuria Ordered: 05/28/2025 Culture, Urine, Routine Microbiology Routine Dysuria Expected: 05/30/2025 (Approximate), Expires: 05/28/2026 Scheduled Referrals Name Type Priority Associated Diagnoses Orde r Schedule Referral to Urology Outpatient Referral Routine Hematuria, unspecified type Expected: 05/28/2025 (Approximate), Expires: 05/28/2026 documented as of this encounter Procedures Procedure Name Priority Date/Time Associated Diagnosis Comments POCT URINALYSIS DIPSTICK Routine 05/28/2025 3:50 PM EDT Dysuria documented in this encounter Results * (ABNORMAL) POCT urinalysis dipstick manually resulted (05/28/2025 3:50 PM EDT) Color, UA Yellow Clarity, UA Clear Glucose, UA Negative Bilirubin, UA Negative Ketones, UA Negative Spec Grav, UA 1.020 Blood, UA Positive(A) Negative, None Detected pH, UA 7.0 Protein, UA Trace Urobilinogen, UA 0.2 Leukocytes, UA Negative Negative, Rare, Trace Nitrite, UA Negative Negative, None Detected Appearance, UA clear QC Media Lot # [id number] Lot# Expiration Date [id number] Urine 05/28/2025 3:50 PM EDT [facility] POINT OF CARE TEST ENTER/EDIT OR DERABLES Final Result documented in this encounter Visit Diagnoses Diagnosis Hematuria, unspecified type- Primary Dysuria Hypertension associated with diabetes (CMS/HCC) Unspecified essential hypertension documented in this encounter Additional Health Concerns Assessment Noted Time PHQ-9 Depression Total Score: 7 04/11/20 25 2:23 PM EDT documented as of this encounter Care Teams Molecular Biologist Relationship Specialty Start Date End Date Vicenta Nielsen NP [address] [place] [address] PCP - General Family Medicine 12/22/23 [employer] 04/29/24 abigail [email or web address] Hollow Core Door Frame AssemblerSinter Feeder 10/18/24 documented as of this encounter
--- OUTSIDE RECORDS SUMMARY | 2025-05-28 18:18 | XMS_ITS | Encounter Summary ---
Author Organization [employer] Address [address] [facility] 7 [place] [address] Care Team Providers Care Hogshead Filler Name Role Phone Vicenta Nielsen NP Primary Care Provider [phone] Reason for Visit * Reason Comments Med Refill Encounter Details Date Type Department Care Team ([facility] Contact Info) Description 02/04/2024 Refill [facility] & PEDS [address] [place] [address] Valery Berrios MD [address] [place] [address] Type 2 diabetes mellitus without complication, with long-term current use of insulin ([facility]) Social History Tobacco Use Types Packs/Day Years [...] Description 06/20/2025 11:30 AM EDT Office Visit [facility] [address] [place] [address] Vicenta Nielsen NP [address] [place] [address] documented as of this encounter Visit Diagnoses Diagnosis Type 2 diabetes mellitus without complication, with long-term current use of insulin ([facility]) documented in this encounter Additional Health Concerns Assessment Noted Time PHQ-9 Depression Total Score: 5 01/04/20 10:57 AM EDT documented as of this encounter Care Teams Hogshead Filler Relationship Specialty Start Date End Date Vicenta Nielsen NP [address] [place] [address] PCP - General Family Medicine 12/22/23 [employer] 04/29/24 abigail mcneill Flame PlanerAssembler Trim 10/18/24 documented as of this encounter
--- OUTSIDE RECORDS SUMMARY | 2025-05-28 18:18 | XMS_ITS | Encounter Summary ---
Author Organization [employer] Address [address] [facility] 7 [place] [address] Care Team Providers Care Industrial Economics Professor Name Role Phone Valery Berrios MD Primary Care Provider [phone] Vicenta Nielsen NP Primary Care Provider [phone] Reason for Visit * Reason Onset Date Comments Transfer Patient 09/13/2023 Encounter Details Date Type Department Care Team (Late st Contact Info) Description 09/13/2023 Telephone [facility] [address] [place] [address] Valery Berrios MD [address] [place] [address] Transfer Patient Social History Tobacco Use Types [...] status on TP Please contact pt @ [phone] * Telephone Encounter - Jone Kaufman - 09/13/2023 1:58 PM EST Tc from patient requesting to be transferred to the [facility] due to patient residing at [facility] documented in this encounter Plan of Treatment Upcoming Encounters Date Type Department Care Team (Late st Contact Info) Description 06/20/2025 11:30 AM EDT Office Visit [facility] [address] [place] [address] Vicenta Nielsen NP [address] [place] [address] documented as of this encounter Visit Diagnoses Not on filedocumented in this encounter Additional Health Concerns Assessment Noted Time PHQ-9 Depression Total Score: 0 10/20/19 23 2:41 PM EST documented as of this encounter Care Teams Industrial Economics Professor Relationship Specialty Start Date End Date Valery Berrios MD [address] [place] [address] [place] [address] PCP - General Internal Medicine 12/01/18 12/21/23 Vicenta Nielsen NP [address] [place] [address] PCP - General Family Medicine 12/22/23 [employer] 04/29/24 abigail mcneill Surgery ManagerRn Medication 10/18/24 documented as of this encounter
--- OUTSIDE RECORDS SUMMARY | 2025-05-28 18:18 | XMS_ITS | Encounter Summary ---
Author Organization [employer] Address [address] [place] [address] 7 [place] [address] Care Team Providers Care District Court Reporter Name Role Phone Valery Berrios MD Primary Care Provider [phone] Vicenta Nielsen NP Primary Care Provider [phone] Reason for Visit * Reason Onset Date Comments PT1 07/16/2023 Encounter Details Date Type Department Care Team ([facility] st Contact Info) Description 07/16/2023 Telephone [facility] MED & PEDS [address] [place] [address] Valery Berrios MD [address] [place] [address] PT1 Social History Tobacco Use Types Packs/Day [...] Date: n/a Time: n/a Visits: n/a Address: [address] [place] [address] Facility: [facility] Chair: n/a Foxer Needed: no documented in this encounter Plan of Treatment Upcoming Encounters Date Type Department Care Team (Late st Contact Info) Description 06/20/2025 11:30 AM EDT Office Visit [facility] [address] [place] [address] Vicenta Nielsen NP [address] [place] [address] documented as of this encounter Visit Diagnoses Not on filedocumented in this encounter Additional Health Concerns Assessment Noted Time PHQ-9 Depression Total Score: 0 10/20/19 23 2:41 PM EST documented as of this encounter Care Teams District Court Reporter Relationship Specialty Start Date End Date Valery Berrios MD [address] [place] [address] PCP - General Internal Medicine 12/01/18 12/21/23 Vicenta Nielsen NP [address] [place] [address] PCP - General Family Medicine 12/22/23 [employer] 04/29/24 abigail mcneill Talent Acquisition AssistantPercussion Tuner 10/18/24 documented as of this encounter
--- OUTSIDE RECORDS SUMMARY | 2025-05-28 18:18 | XMS_ITS | Encounter Summary ---
Author Organization [employer] Address [address] [place] [address] 7 [place] [address] Care Team Providers Care Community Health Consultant Name Role Phone Valery Berrios MD Primary Care Provider [phone] Vicenta Nielsen NP Primary Care Provider [phone] Encounter Details Date Type Department Care Team ([facility] st Contact Info) Description 11/18/2023 Orders Only [facility] MED & PEDS [address] [place] [address] Valery Berrios MD [address] [place] [address] Benign hypertension (Primary Dx) Social History Tobacco [...] Description 06/20/2025 11:30 AM EDT Office Visit [facility] [address] [place], [place] [phone] Vicenta Nielsen NP [address] [place], [place] [phone] Scheduled Orders Name Type Priority Associated Diagnoses [...] Blood Count 7.8 4.8 - 10.8 X10*3/uL [facility] Red Blood Count 3.54(L) 4.60 - 5.80 X10*6/uL [facility] Hemoglobin 9.5(L) 14.0 - 18.0 g/dl [facility] Hematocrit 29.7(L) 42.0 - 52.0 % [facility] Mean Corpuscular Volume 83.9 80.0 - 98.0 fL [facility] Mean Corpuscular Hemoglobin 26.8(L) 27.0 - 33.0 pg [facility] Mean Corpuscular HGB Conc 32.0 31.0 - 36.0 g/dl [facility] Red Cell Distribution Width 14.0 11.0 - 16.0 % [facility] Platelet Count 236 160 - 400 X10*3/uL [facility] Mean Platelet Volume 11.3 9.4 - 12.4 fL [facility] Neutrophils Percent Auto 75.3(H) 45 - 73 % [facility] Imm Gran Pct Auto 0.4 0.0 - 0.4 % [facility] Lymphocytes Percent Auto 12.9(L) 20 - 40 % [facility] Monocytes Percent Auto 9.7 2 - 11 % [facility] Eosinophils Percent Auto 1.2 0 - 4 % [facility] Basophils Percent Auto 0.5 0 - 2 % [facility] NRBC Pct Auto 0.0 0.0 - 0.2 /100WBC [facility] Neutrophils Absolute Auto 5.9 2.0 - 8.3 x10*3/uL [facility] Imm Gran Abs Auto 0.03 0.00 - 0.03 X10*3/uL [facility] Lymphocytes Absolute Auto 1.0(L) 1.2 - 4.9 X10*3/uL [facility] Monocytes Absolute Auto 0.8 0.1 - 1.2 X10*3/uL [facility] Eosinophils Absolute Auto 0.1 0.0 - 0.4 X10*3/uL [facility] Basophils Absolute Auto 0.0 0.0 - 0.2 X10*3/uL [facility] NRBC Abs Auto 0.000 0.0 - 0.012 X10*3/uL [facility] Blood Venous blood specimen / Unknown 05/23/2024 11:38 AM EDT 05/23/2024 1:31 PM EDT us Valery Berrios MD LAB BLOOD ORDERABLES Final Result [facility] [address] [place] [address] [phone] documented in this encounter Visit Diagnoses Diagnosis Benign hypertension- Primary Essential hypertension, benign documented in this encounter Additional Health Concerns Assessment Noted Time PHQ-9 Depression Total Score: 0 10/20/19 23 2:41 PM EST documented as of this encounter Care Teams Community Health Consultant Relationship Specialty Start Date End Date Valery Berrios MD [address] [place] [address] PCP - General Internal Medicine 12/01/18 12/21/23 Vicenta Nielsen NP [address] [place] [address] PCP - General Family Medicine 12/22/23 [employer] 04/29/24 abigail mcneill Child Support SpecialistAlarm Security Or Surveillance Monitor 10/18/24 documented as of this encounter
--- OUTSIDE RECORDS SUMMARY | 2025-05-28 18:18 | XMS_ITS | Encounter Summary ---
Author Organization [employer] Address [address] [facility] 7t [place] [address] Care Team Providers Care Branch Store Manager Name Role Phone Valery Berrios MD Primary Care Provider [phone] Vicenta Nielsen NP Primary Care Provider [phone] Reason for Visit * Reason Onset Date Comments Call Back Request 11/17/2023 Encounter Details Date Type Department Care Team (Late st Contact Info) Description 11/17/2023 Telephone [facility] MEDICINE [address] [place] [address] Valery Berrios MD [address] [place], [place] [phone] Call Back Request Social History Tobacco Use [...] on his potassium and iron. According to [facility] pharmacy, they do not have this on file. Dr. Berrios, is pt to be taking these 2 medications? If so he is in need of both sent to [facility] pharm. Pt also states he stopped taking the amlodipine because it made his legs swell, please DC in chart, he has been having high BP readings and will need something in replace of the amlodipine. Pt agrees to appt with PCP 11.23.23. Pt also states he moved to [place] and would like to transfer his care there. TP request sent on 10.14.23. Will wait for pt appt 11.23.23 to see what current PCP requests for f/u and go from there. * Telephone Encounter - Elmer Sykes - 11/17/2023 3:31 PM EST Tc from pt requesting call back from nurses to go over medication. Please contact pt at [phone]. documented in this encounter Plan of Treatment Upcoming Encounters Date Type Department Care Team (Late st Contact Info) Description 06/20/2025 11:30 AM EDT Office Visit [facility] MEDICINE [address] [place] [address] Vicenta Nielsen NP 230 [place] [address] documented as of this encounter Visit Diagnoses Not on filedocumented in this encounter Additional Health Concerns Assessment Noted Time PHQ-9 Depression Total Score: 0 10/20/19 23 2:41 PM EST documented as of this encounter Care Teams Branch Store Manager Relationship Specialty Start Date End Date Valery Berrios MD [address] [place] [address] PCP - General Internal Medicine 12/01/18 12/21/23 Vicenta Nielsen NP [address] [place] [address] PCP - General Family Medicine 12/22/23 [employer] 04/29/24 abigail [email or web address] Ordnance Truck Installation SupervisorMarine Services Technician 10/18/24 documented as of this encounter
--- OUTSIDE RECORDS SUMMARY | 2025-05-28 18:18 | XMS_ITS | Encounter Summary ---
Author Organization [employer] Address [address] [place] [address] [place] [address] Care Team Providers Care Batch Operator Name Role Phone Valery Berrios MD Primary Care Provider [phone] Vicenta Nielsen NP Primary Care Provider [phone] Reason for Visit * Reason Onset Date Comments Forms/questionnaires 09/17/2022 Encounter Details Date Type Department Care Team (Late st Contact Info) Description 09/17/2022 Telephone [facility] CHC MED & PEDS [address] [place] [address] Valery Berrios MD 505 [place] [address] Forms/questionnaires Social History Tobacco Use Types Packs/Day [...] Description 06/20/2025 11:30 AM EDT Office Visit [facility] MEDICINE 230 [place] [address] Vicenta Nielsen NP [address] [place] [address] documented as of this encounter Visit Diagnoses Not on filedocumented in this encounter Care Teams Batch Operator Relationship Specialty Start Date End Date Valery Berrios MD [address] [place] [address] PCP - General Internal Medicine 12/01/18 12/21/23 Vicenta Nielsen NP 230 [place] [address] PCP - General Family Medicine 12/22/23 [email or web address] 04/29/24 abigail mcneill Glove BrusherHelp Desk Support Specialist 10/18/24 documented as of this encounter
--- OUTSIDE RECORDS SUMMARY | 2025-05-28 18:18 | XMS_ITS | Encounter Summary ---
Author Organization [employer] Address [address] [place] [address] 7 [place] [address] Care Team Providers Care Bilingual Research Interviewer Name Role Phone Valery Berrios MD Primary Care Provider [phone] Vicenta Nilesen NP Primary Care Provider [phone] Reason for Visit * Reason Onset Date Comments PT1 07/21/2023 Encounter Details Date Type Department Care Team ([facility] st Contact Info) Description 07/21/2023 Telephone [facility] CHC MED & PEDS 505 [place] [address] Valery Berrios MD 505 [place] [address] PT1 Social History Tobacco Use Types Packs/Day [...] - 07/21/2023 2:49 PM EDT Tc richy maynor with ICP requesting PT1 for pt Date: 08/11 Time: 3:45 pm Visits: n/a Address: [address] [place] [address] Facility: [facility], Dr. Kimmy Vuong Wheel Chair: n/a Weaving Teacher Needed: no Pick-up location confirmed: [address] [place] [address] documented in this encounter Plan of Treatment Upcoming Encounters Date Type Department Care Team (Late st Contact Info) Description 06/20/2025 11:30 AM EDT Office Visit [facility] MEDICINE [address] [place] [address] Vicenta Nielsen NP 230 [place] [address] documented as of this encounter Visit Diagnoses Not on filedocumented in this encounter Additional Health Concerns Assessment Noted Time PHQ-9 Depression Total Score: 0 10/20/19 23 2:41 PM EST documented as of this encounter Care Teams Bilingual Research Interviewer Relationship Specialty Start Date End Date Valery Berrios MD 505 [place] [address] PCP - General Internal Medicine 12/01/18 12/21/23 Vicenta Nielsen NP [address] [place] [address] PCP - General Family Medicine 12/22/23 [employer] 04/29/24 abigail [email or web address] Casing Running Machine TenderClinical Data Programmer 10/18/24 documented as of this encounter
--- OUTSIDE RECORDS SUMMARY | 2025-05-28 18:18 | XMS_ITS | Encounter Summary ---
Author Organization [employer] Address [address] [address] [address] 7t [place] [address] Care Team Providers Care Pathology Tech Name Role Phone Vicenta Nielsen NP Primary Care Provider [phone] Reason for Visit * Reason Onset Date Comments Nurse Triage 05/28/2025 Encounter Details Date Type Department Care Team ([facility] Contact Info) Description 05/28/2025 Telephone [facility] MEDICINE 230 [place], [place] [phone] Vicenta Nielsen NP 230 [place] [address] Nurse Triage Social History Tobacco Use Types [...] Telephone Encounter - Lia Palma RN - 05/28/2025 9:32 AM EDT called pt to triage, spoke to pt. pt states having urinary symptoms and requesting a script. pt states urinary pain and pressure, mild redness on tip of penis, unable to empty completely which is chronic, and frequency/urgency. pt denies fever, penile discharge, strong odor, or other associated symptoms. advised would need to be seen for these symptoms and was given an appt today with green team provider at 3:00 for exam. advised home care: rest, fluids, monitor and call back as needed. pt understands and agrees with plan. insurance verified. Protocol Used: Urinary Symptoms (Adult) Protocol-Based Disposition: See in Office or Video Visit Today Video visit offer not recorded Positive Triage Questions: * Urinating more frequently than usual (i.e., frequency) OR new-onset of the feeling of an urgent need to urinate (i.e., urgency) * Patient wants to be seen * All higher-acuity triage questions were negative Care Advice Discussed: * Reassurance and Education - Urinary Hesitancy * Reasons To Call Back - Fever occurs - Pain or burning with urination - Unable to urinate and bladder feels full - You become worse * Telephone Encounter - Elmer Sykes - 05/28/2025 8:42 AM EDT Symptom: Urination Pain Outcome: Schedule a same-day appointment or talk to a nurse or provider today Reason: Caller denied all higher acuity questions Please contact pt at [phone]. documented in this encounter Plan of Treatment Upcoming Encounters Date Type Department Care Team (Late st Contact Info) Description 06/20/2025 11:30 AM EDT Office Visit [facility] MEDICINE [address] [place] [address] Vicenta Nielsen NP 230 [place] [address] documented as of this encounter Visit Diagnoses Not on filedocumented in this encounter Additional Health Concerns Assessment Noted Time PHQ-9 Depression Total Score: 7 04/11/20 25 2:23 PM EDT documented as of this encounter Care Teams Pathology Tech Relationship Specialty Start Date End Date Vicenta Nielsen NP [address] [place] [address] PCP - General Family Medicine 12/22/23 [employer] 04/29/24 abigail [email or web address] Machine Joint CutterFood Scientist 10/18/24 documented as of this encounter
--- OUTSIDE RECORDS SUMMARY | 2025-05-28 18:18 | XMS_ITS | Encounter Summary ---
Author Organization [employer] Address [address] [facility] [address] 7t [place] [address] Care Team Providers Care Vp Global Name Role Phone Vicenta Nielsen NP Primary Care Provider [phone] Reason for Visit * Reason Onset Date Comments Call Back Request 03/10/2024 Encounter Details Date Type Department Care Team ([facility] st Contact Info) Description 03/10/2024 Telephone [facility] MEDICINE 230 [place], [place] [phone] Vicenta Nielsen NP 230 [place] [address] Call Back Request Social History Tobacco Use [...] scanned in chart. Please contact pt at [phone] documented in this encounter Plan of Treatment Upcoming Encounters Date Type Department Care Team (Late st Contact Info) Description 06/20/2025 11:30 AM EDT Office Visit [facility] MEDICINE [address] [place] [address] Vicenta Nielsen NP [address] [place] [address] documented as of this encounter Visit Diagnoses Not on filedocumented in this encounter Additional Health Concerns Assessment Noted Time PHQ-9 Depression Total Score: 5 01/04/20 24 10:57 AM EDT documented as of this encounter Care Teams Vp Global Relationship Specialty Start Date End Date Vicenta Nielsen NP [address] [place] [address] PCP - General Family Medicine 12/22/23 [employer] 04/29/24 abigail mcneill Equal Opportunity DirectorReporter Anchor 10/18/24 documented as of this encounter
--- OUTSIDE RECORDS SUMMARY | 2025-05-28 18:18 | XMS_ITS | Encounter Summary ---
Author Organization [employer] Address [address] [place] [address] 7 [place] [address] Care Team Providers Care Flatbed Driver Name Role Phone Valery Berrios MD Primary Care Provider [phone] Vicenta Nielsen NP Primary Care Provider [phone] Encounter Details Date Type Department Care Team ([facility] Contact Info) Description 10/30/2022 Abstract [facility] CHC MED & PEDS [address] [place] [address] Valery Berrios MD 505 [place] [address] Social History Tobacco Use Types Packs/Day Years [...] Upcoming Encounters Date Type Department Care Team ([facility] Contact Info) Description 06/20/2025 11:30 AM EDT Office Visit [facility] MEDICINE [address] [place] [address] Vicenta Nielsen NP [address] [place], [place] [phone] documented as of this encounter Visit Diagnoses Not on filedocumented in this encounter Additional Health Concerns Assessment Noted Time PHQ-9 Depression Total Score: 0 10/20/19 23 2:41 PM EST documented as of this encounter Care Teams Flatbed Driver Relationship Specialty Start Date End Date Valery Berrios MD [address] [place] [address] PCP - General Internal Medicine 12/01/18 12/21/23 Vicenta Nielsen NP [address] [place] [address] PCP - General Family Medicine 12/22/23 [employer] 04/29/24 abigail [email or web address] Industry Segment SpecialistRabbit Breeder 10/18/24 documented as of this encounter
--- OUTSIDE RECORDS SUMMARY | 2025-05-28 18:19 | XMS_ITS | Encounter Summary ---
Author Organization [employer] Address [address] [facility] [address] 7t [place] [address] Care Team Providers Care Clin Nurse Name Role Phone Vicenta Nielsen NP Primary Care Provider Reason for Visit * Reason Onset Date Comments Lab Orders 10/31/2024 Encounter Details Date Type Department Care Team ([facility] Contact Info) Description 10/31/2024 Telephone [facility] MEDICINE 230 [place], [place] [phone] Vicenta Nielsen NP 230 [place] [address] Lab Orders Social History Tobacco Use Types [...] [facility]. Pt also c/o left sided internal [...] would like to have labs done at [facility] when he goes so that he can [...] Description 06/20/2025 11:30 AM EDT Office Visit [facility] MEDICINE [address] [place] [address] Vicenta Nielsen NP [address] [place] [address] documented as of this encounter Visit Diagnoses Not on filedocumented in this encounter Additional Health Concerns Assessment Noted Time PHQ-9 Depression Total Score: 7 07/25/20 24 9:24 AM EDT documented as of this encounter Care Teams Clin Nurse Relationship Specialty Start Date End Date Vicenta Nielsen NP 230 [place] [address] PCP - General Family Medicine 12/22/23 [employer] 04/29/24 abigail mcneill Shellac PolisherCarpet Layer Helper 10/18/24 documented as of this encounter
--- OUTSIDE RECORDS SUMMARY | 2025-05-28 18:19 | XMS_ITS | Clinical Summary ---
Author Organization [facility] Address [address] [place], [place] [phone] Phone Care Team Providers Care Employee Relation Manager Name Role Phone Pcp, Unknown Primary Care Provider Unavailabl e Social History Tobacco Use Types Packs/Day Years Used Date Smoking Tobacco: Never Assessed Education Answer Date Recorded Are you interested in more education? Not on liliana e 03/31/2024 Are you concerned about learning? Not on file 03/31/2024 No 03/31/2024 No 03/31/2024 Digital Access Answer Date Recorded No 03/31/2024 No 03/31/2024 Reliable internet access at home? Not on file 03/31/2024 Device with a working camera? Not on file Sex and Gender Information Value Date Recorded Sex Assigned at Not on file Legal Sex Male 10:33 PM EDT Gender Identity Not on file Sexual Orientation Not on file Plan of Treatment Not on file Medical Devices Not on file Insurance C3 ACO C3 ACO C3 ACO C3 ACO C3 ACO [facility] C3 ACO Care Teams Employee Relation Manager Relationship Specialty Start Date End Date Pcp, Unknown PCP - General 03/31/24 Additional Source Comments The information contained in this document represents components of the legal health record. It is not the complete legal health record.[facility]
--- OUTSIDE RECORDS SUMMARY | 2025-05-28 18:19 | XMS_ITS | Encounter Summary ---
Author Organization [employer] Address [address] [facility] [address] [facility] [address] 7t [place] [address] Care Team Providers Care Paper Conservator Name Role Phone Vicenta Nielsen NP Primary Care Provider [phone] Reason for Visit * Reason Onset Date Comments Referral 10/31/2024 Encounter Details Date Type Department Care Team ([facility] Contact Info) Description 10/31/2024 Telephone [facility] MEDICINE 230 [place], [place] [phone] Vicenta Nielesn NP 230 [place] [address] Referral Social History Tobacco Use Types Packs/Day [...] encounter Miscellaneous Notes * Telephone Encounter - aJcobo Ross - 10/31/2024 10:22 AM EST Tc from pt requesting a referral for Physical Therapy for his hip knee and for exercise on leg. Pt legs are amputated. Pt states that he is in a lot of pain. Contact pt: [phone] documented in this encounter Plan of Treatment Upcoming Encounters Date Type Department Care Team (Late st Contact Info) Description 06/20/2025 11:30 AM EDT Office Visit [facility] MEDICINE [address] [place] [address] Vicenta Nielsen NP [address] [place] [address] documented as of this encounter Visit Diagnoses Not on filedocumented in this encounter Additional Health Concerns Assessment Noted Time PHQ-9 Depression Total Score: 7 07/25/20 9:24 AM EDT documented as of this encounter Care Teams Paper Conservator Relationship Specialty Start Date End Date Vicenta Nielsen NP [address] [place] [address] PCP - General Family Medicine 12/22/23 [employer] 04/29/24 abigail mcneill Retail Cashier AssociateLead Ingot Molder 10/18/24 documented as of this encounter
--- OUTSIDE RECORDS SUMMARY | 2025-05-28 18:19 | XMS_ITS | Encounter Summary ---
Author Organization [facility] Address [address] [place] [address] Care Team Providers Care Special Machine Operator Name Role Phone Vicenta Nielsen Primary Care Provider [phone] Encounter Details Date Type Department Care Team Description 05/30/2024 Social Work [facility] [address] [place] [address] Claude Resendiz, [facility] Social History Tobacco Use Types Packs/Day Years [...] on filedocumented in this encounter Care Teams Special Machine Operator Relationship Specialty Start Date End Date Vicenta Nielsen [address] [place] [phone] PCP - General Family Medicine 05/26/24 documented as of this encounter
--- OUTSIDE RECORDS SUMMARY | 2025-05-28 18:19 | XMS_ITS | Encounter Summary ---
Author Organization [employer] Address [address] 7t [place] [address] Care Team Providers Care Milled Rice Broker Name Role Phone Vicenta Nielsen NP Primary Care Provider [phone] Encounter Details Date Type Department Care Team (Latest Contact Info) Description 05/28/2025 Travel Social History Tobacco Use Types Packs/Day Years [...] Description 06/20/2025 11:30 AM EDT Office Visit [facility] MEDICINE [address] [place] [address] Vicenta Nielsen NP [address] [place] [address] documented as of this encounter Visit Diagnoses Not on filedocumented in this encounter Additional Health Concerns Assessment Noted Time PHQ-9 Depression Total Score: 7 04/11/20 25 2:23 PM EDT documented as of this encounter Care Teams Milled Rice Broker Relationship Specialty Start Date End Date Vicenta Nielsen NP [address] [place] [address] PCP - General Family Medicine 12/22/23 [employer] 04/29/24 abigail mcneill Customer AdvisorManager Investment 10/18/24 documented as of this encounter
--- OUTSIDE RECORDS SUMMARY | 2025-05-28 18:19 | XMS_ITS | Encounter Summary ---
Author Organization [employer] Address [address] 7t [place] [address] Care Team Providers Care Mechanic Field Service Name Role Phone Vicenta Nielsen NP Primary Care Provider [phone] Reason for Visit * Reason Onset Date Comments Call Back Request 04/02/2025 Encounter Details Date Type Department Care Team ([facility] Contact Info) Description 04/02/2025 Telephone [facility] MEDICINE [address] [place], [place] [phone] Vicenta Nielsen NP [address] [place] [address] Call Back Request Social History Tobacco Use [...] encounter Miscellaneous Notes * Telephone Encounter - Dolores Ge - 04/02/2025 1:41 PM EDT Tc from pt requesting a call back to discuss pt1 Contact pt at [phone] documented in this encounter Plan of Treatment Upcoming Encounters Date Type Department Care Team (Late st Contact Info) Description 06/20/2025 11:30 AM EDT Office Visit [facility] MEDICINE [address] [place] [address] Vicenta Nielsen NP [address] [place] [address] documented as of this encounter Visit Diagnoses Not on filedocumented in this encounter Additional Health Concerns Assessment Noted Time PHQ-9 Depression Total Score: 7 07/25/20 9:24 AM EDT documented as of this encounter Care Teams Mechanic Field Service Relationship Specialty Start Date End Date Vicenta Nielsen NP [address] [place] [address] PCP - General Family Medicine 12/22/23 [employer] 04/29/24 abigail [email or web address] Asset Liability AnalystChemical Sales Representative 10/18/24 documented as of this encounter
--- OUTSIDE RECORDS SUMMARY | 2025-05-28 18:19 | XMS_ITS | Clinical Summary ---
Author Organization [facility] Address [address] [place] [address] Care Team Providers Care Enterprise Business Architect Name Role Phone Vicenta Nielsen Primary Care Provider [phone] Allergies Active Allergy Reactions Criticality Noted Date [...] 71 05/26/2024 1:04 PM EDT Temperature 36.6 C (97.9 F) 05/26/2024 1:04 PM EDT Respiratory Rate - - Oxygen Saturation 97% [...] season) 2024 03/04/2021, 02/11/2021 Influenza Vaccine (#1) 2025 , 07/20/2022, 07/04/2019, Additional history exists DTap / Tdap / Td (2 - Td or Tdap) 07/04/2029 07/04/2019 Pneumococcal Vaccine Aged Out 06/28/2023, 02/26/20 17 No longer eligible based on patient's age to complete this topic Shingrix-Zoster Vaccine Completed 06/28/2023, 04/20 RSV Ped < 20 months Aged Out No longe r eligible based on patient's age to complete this topic Care Teams Enterprise Business Architect Relationship Specialty Start Date End Date Vicenta Nielsen [address] [place] [phone] PCP - General Family Medicine 05/26/24
--- OUTSIDE RECORDS SUMMARY | 2025-05-28 18:19 | XMS_ITS | Encounter Summary ---
Author Organization [employer] Address [address] [place] [address] 7 [place] [address] Care Team Providers Care Photographer News Name Role Phone Valery Berrios MD Primary Care Provider [phone] Vicenta Nielsen NP Primary Care Provider Reason for Visit * Reason Onset Date Comments medication 07/14/2023 Encounter Details Date Type Department Care Team ([facility] st Contact Info) Description 07/14/2023 Telephone [facility] CHC MED & PEDS [address] [place] [address] Valery Berrios MD 505 [place] [address] medication Social History Tobacco Use Types Packs/Day [...] see message below. Retrieved Endo note from [employer]. Per note, plan is to reinitiate metformin 1000mg bid. Could consider adding and SGLT 2 inhibitor in the future. Will increase lantus to 65units at possibly 70 units to keep point care in a.m <180 ... Will send note to scan for PCP to review. * Telephone Encounter - Ying Cox - 07/14/2023 11:20 AM EDT Tc from pt stating seafood specialist is requesting pt switch from 55 to 65 units on insulin glargine (Lantus) 100 UNIT/ML injection. documented in this encounter Plan of Treatment Upcoming Encounters Date Type Department Care Team (Late st Contact Info) Description 06/20/2025 11:30 AM EDT Office Visit [facility] MEDICINE [address] [place] [address] Vicenta Nielsen NP 230 [place] [address] documented as of this encounter Visit Diagnoses Not on filedocumented in this encounter Additional Health Concerns Assessment Noted Time PHQ-9 Depression Total Score: 0 10/20/19 23 2:41 PM EST documented as of this encounter Care Teams Photographer News Relationship Specialty Start Date End Date Valery Berrios MD [address] [place] [address] PCP - General Internal Medicine 12/01/18 12/21/23 Vicenta Nielsen NP [address] [place] [address] PCP - General Family Medicine 12/22/23 [employer] 04/29/24 abigail mcneill Sail RepairerPrompt Care Rn 10/18/24 documented as of this encounter
--- OUTSIDE RECORDS SUMMARY | 2025-05-28 18:19 | XMS_ITS | Encounter Summary ---
Author Organization [employer] Address [address] [place] [address] Care Team Providers Care Residential Director Name Role Phone Vicenta Nielsen NP Primary Care Provider [phone] Reason for Visit * Reason Onset Date Comments FYI 10/12/2024 Encounter Details Date Type Department Care Team ([facility] Contact Info) Description 10/12/2024 Telephone [facility] MED[facility]INE [address] [place], [place] [phone] Vicenta Nielsen NP [address] [place] [address] FYI Social History Tobacco Use Types Packs/Day [...] Description 06/20/2025 11:30 AM EDT Office Visit [facility] [address] [place] [address] Vicenta Nielsen NP [address] [place] [address] documented as of this encounter Visit Diagnoses Not on filedocumented in this encounter Additional Health Concerns Assessment Noted Time PHQ-9 Depression Total Score: 7 07/25/20 9:24 AM EDT documented as of this encounter Care Teams Residential Director Relationship Specialty Start Date End Date Vicenta Nielsen NP [address] [place] [address] PCP - General Family Medicine 12/22/23 [facility] 04/29/24 abigail [email or web address] Office [employer] Support Control Officer 10/18/24 documented as of this encounter
--- OUTSIDE RECORDS SUMMARY | 2025-05-28 18:19 | XMS_ITS | Encounter Summary ---
Author Organization [employer] Address [address] [place] [address] [address] [place] [address] Care Team Providers Care Battery Technician Name Role Phone Vicenta Nielsen NP Primary Care Provider [phone] Reason for Visit * Reason Onset Date Comments PT-1 10/31/2024 Encounter Details Date Type Department Care Team ([facility] st Contact Info) Description 10/31/2024 Telephone [facility] MEDICINE [address] [place], [place] [phone] Vicenta Nielsen NP [address] [place] [address] PT-1 Social History Tobacco Use Types Packs/Day [...] Yes Provider name or facility name: [address] [facility] [facility] Escort needed: Y/N: Yes Do you have a wheelchair: Y/N: Yes If yes- Manual or electric: electric Visits: (3) ( x monthly) * Telephone Encounter - Jacobo Ross - 10/31/2024 10:29 AM EST Patient calling requesting PT1 Home Address verified: Y/N: Yes [facility] [address] [place] [id number] Escort needed: Y/N: Yes Do you have a wheelchair: Y/N: Yes If yes- Manual or electric: Electric Visits: (amount of visits) ( x monthly, weekly, daily) 10 times a month for 3 month documented in this encounter Plan of Treatment Upcoming Encounters Date Type Department Care Team ([facility] st Contact Info) Description 06/20/2025 11:30 AM EDT Office Visit [facility] MED[facility]INE [address] [place] [address] Vicenta Nielsen NP [address] [place] [address] documented as of this encounter Visit Diagnoses Not on filedocumented in this encounter Additional Health Concerns Assessment Noted Time PHQ-9 Depression Total Score: 7 07/25/20 24 9:24 AM EDT documented as of this encounter Care Teams Battery Technician Relationship Specialty Start Date End Date Vicenta Nielsen NP [address] [place] [address] PCP - General Family Medicine 12/22/23 [employer] 04/29/24 abigail mcneill Cutter FinisherCardiology Tech 10/18/24 documented as of this encounter
--- OUTSIDE RECORDS SUMMARY | 2025-05-28 18:20 | XMS_ITS | Encounter Summary ---
Author Organization [employer] Address [address] [place] [address] Care Team Providers Care Refrigerator Repair Technician Name Role Phone Vicenta Nielsen NP Primary Care Provider [phone] Reason for Visit * Reason Onset Date Comments Medication Question 01/23/2025 Encounter Details Date Type Department Care Team ([facility] Contact Info) Description 01/23/2025 Telephone [facility] MED[facility]INE [address] [place], [place] [phone] Vicenta Nielsen NP [address] [place] [address] Medication Question Social History Tobacco Use Types [...] Medications needing refill : [facility] To be sent to: [facility] [place], [place] - [address] [facility] Contact at [phone] documented in this encounter Plan of Treatment Upcoming Encounters Date Type Department Care Team (Late st Contact Info) Description 06/20/2025 11:30 AM EDT Office Visit [facility] MED[facility]INE [address] [place] [address] Vicenta Nielsen NP [address] [place] [address] documented as of this encounter Visit Diagnoses Diagnosis Type 2 diabetes mellitus without complication, with long-term current use of insulin ([facility]) documented in this encounter Additional Health Concerns Assessment Noted Time PHQ-9 Depression Total Score: 7 07/25/20 24 9:24 AM EDT documented as of this encounter Care Teams Refrigerator Repair Technician Relationship Specialty Start Date End Date Vicenta Nielsen NP [address] [place] [address] PCP - General Family Medicine 12/22/23 [facility] [employer] 04/29/24 abigail [email or web address] Ball Thread Machine TenderLivestock Farmers 10/18/24 documented as of this encounter
--- OUTSIDE RECORDS SUMMARY | 2025-05-28 18:20 | XMS_ITS | Encounter Summary ---
Author Organization [employer] Address [address] [place] [address] Care Team Providers Care Nursing Scheduler Name Role Phone Vicenta Nielsen NP Primary Care Provider [phone] Reason for Visit * Reason Onset Date Comments Durable Medical Equipment 08/18/2024 Encounter Details Date Type Department Care Team ([facility] st Contact Info) Description 08/18/2024 Telephone [facility] MEDICINE [address] [place], [place] [phone] Vicenta Nielsen NP [address] [place] [address] Durable Medical Equipment Social History Tobacco Use [...] leg and he feels insecure. Callback number [phone] documented in this encounter Plan of Treatment Upcoming Encounters Date Type Department Care Team (Late st Contact Info) Description 06/20/2025 11:30 AM EDT Office Visit [facility] MED[facility]INE [address] [place] [address] Vicenta Nielsen NP [address] [place] [address] documented as of this encounter Visit Diagnoses Not on filedocumented in this encounter Additional Health Concerns Assessment Noted Time PHQ-9 Depression Total Score: 7 07/25/20 24 9:24 AM EDT documented as of this encounter Care Teams Nursing Scheduler Relationship Specialty Start Date End Date Vicenta Nielsen NP [address] [place] [address] PCP - General Family Medicine 12/22/23 [facility] [employer] 04/29/24 abigail [email or web address] Pole Framer MachineViolin Teacher 10/18/24 documented as of this encounter
--- OUTSIDE RECORDS SUMMARY | 2025-05-28 18:20 | XMS_ITS | Encounter Summary ---
Author Organization [employer] Address [address] [place] [address] Street [address] [place] [address] Care Team Providers Care Electronics Mechanic Name Role Phone Vicenta Nielsen NP Primary Care Provider [phone] Reason for Visit * Reason Onset Date Comments PT1 01/18/2025 Encounter Details Date Type Department Care Team ([facility] Contact Info) Description 01/18/2025 Telephone [facility] MEDICINE [address] [place], [place] [phone] Vicenta Nielsen NP [address] [place] [address] PT1 Social History Tobacco Use Types Packs/Day [...] Yes Provider name or facility name: [address] [place] [address] Escort needed: Y/N: Yes door to door services Do you have a wheelchair: Y/N: Yes If yes- Manual or electric: electric Visits: (10x monthly) documented in this encounter Plan of Treatment Upcoming Encounters Date Type Department Care Team (Late st Contact Info) Description 06/20/2025 11:30 AM EDT Office Visit [facility] MEDICINE [address] [place] [address] Vicenta Nielsen NP [address] [place] [address] documented as of this encounter Visit Diagnoses Not on filedocumented in this encounter Additional Health Concerns Assessment Noted Time PHQ-9 Depression Total Score: 7 07/25/20 24 9:24 AM EDT documented as of this encounter Care Teams Electronics Mechanic Relationship Specialty Start Date End Date Vicenta Nielsen NP [address] [place] [address] PCP - General Family Medicine 12/22/23 [facility] [employer] 04/29/24 abigail [email or web address] Artist ScientificPattern Repair Person 10/18/24 documented as of this encounter
--- OUTSIDE RECORDS SUMMARY | 2025-05-28 18:20 | XMS_ITS | Clinical Summary ---
Author Organization [employer] Address [address] [place] [address] 7[address] [place] [address] Care Team Providers Care Loan Operations Specialist Name Role Phone Vicenta Nielsen NP Primary Care Provider [phone] Allergies Active Allergy Reactions Criticality Noted Date Comments Bee Pollen 05/07/2023 Bee Venom Anaphylaxis High 12/15/2018 Beeswax Unknown 03/21/2024 Per Johan Cortés Erythromycin Itching 07/04/2019 Iodinated Contrast Media Shortness of breath High 11/20/2022 Iodine 12/15/2018 Medications * This document contains information received from the source organization and may not represent a complete record from that organization. Blood Glucose Monitoring Suppl (SpeakPhone [place] Lite) w/Device kit TEST BLOOD SUGAR FOUR TIMES DAILY 022 Active METHADONE HCL PO Take 115 [...] 3 023 Active Continuous Blood Gluc Sensor (FIGHTER InteractiveStyle Oumar [address]) [facility] USE DIRECTED TO TEST BLOOD SUGAR. CHANGE EVERY 14 DAYS . 2 each 11 024 Active ipratropium-alb uterol (Combivent Respimat) 20-100 MCG/ACT inhalerIndicati ons:COPD mixed type (CMS/HCC) Inhale 1 puff if needed in the morning, at noon, in the evening, and at bedtime for wheezing. 4 g 2 024 Active Multiple Vitamin (Multivitamin) tablet Take 1 tablet by mouth in the morning. 024 Active atorvastatin (Lipitor) 20 MG tablet Take 1 tablet (20 mg) by mouth at bedtime. 90 tablet 3 024 Active Blood Pressure Monitoring (Blood Pressure Cuff) misc Use daily as prescribed 1 each 024 Active Lactobacillus Probiotic tabletIndicatio ns:Chronic antibiotic suppression Take 1 tablet by mouth 3 times daily. 90 tablet 2 024 Active FREESTYLE LITE test stripIndication s:Type 2 diabetes mellitus without complication, with long-term current use of insulin ([facility]) USE DIRECTED TO TEST BLOOD SUGAR FOUR TIMES DAILY 100 strip 11 025 Active polyethylene glycol, PEG, 3350 (Glycolax) 17 GM/SCOOP powder TAKE 17 GM MIXED IN 8 OUNCES OF WATER, COFFEE OR TEA ONCE DAILY FOR 3 DAYS 510 g 1 025 Active Isopropyl Alcohol (Alcohol Wipes) 70 % miscIndications :Type II diabetes mellitus with complication (CMS/HCC) Apply 1 Units topically 6 (six) times a day. 250 each 2 025 Active acetaminophen (Tylenol) 325 MG tabletIndicatio ns:Musculoskele zenobia pain TAKE 1 TABLET BY MOUTH EVERY 4 HOURS NEEDED FOR MILD PAIN 30 tablet 1 025 Active Continuous Glucose Portable Grinding Machine Operator (FreeStyle Oumar 3 [place]) deviceIndicatio ns:Diabetes mellitus, type II, insulin dependent (CMS/HCC) 1 each Once per day. Use as directed for CGM 1 each 025 Active Continuous Glucose Sensor (FreeStyle Oumar 3 Plus Sensor) miscIndications :Diabetes mellitus, type II, insulin dependent (CMS/HCC) 1 each every 15 days. Apply 1 every 15 days as directed for CGM 2 each 025 Active glucose blood (FreeStyle Precision Keven Test) test stripIndication s:Diabetes mellitus, type II, insulin dependent (CMS/HCC) Use to test blood sugar 4 times daily in case of CGM failure or extremes of BG 100 each 025 2025 Active TRUEplus Lancets 33G miscIndications :Type 2 diabetes mellitus without complication, with long-term current use of insulin ([facility]) USE DIRECTED TO TEST BLOOD SUGAR FOUR TIMES DAILY 100 each 025 Active Lactobacillus Acid-Pectin (Acidophilus/Ci trus Pectin) tabletIndicatio ns:intermediate (current) use of antibiotics TAKE 1 TABLET BY MOUTH THREE TIMES DAILY 90 tablet 2 025 Active Lantus SoloStar 100 UNIT/ML penIndications: Type 2 diabetes mellitus with hyperglycemia, with long-term current use of insulin ([facility]) INJECT 20 UNITS SUBCUTANEOUSLY TWICE DAILY 15 mL 3 025 Active cyclobenzaprine (Flexeril) 10 MG tabletIndicatio ns:Muscle spasm Take 1 tablet (10 mg) by mouth if needed in the morning and at bedtime for muscle spasms for up to 20 days. 40 tablet 025 Active insulin pen needle (Novofine Pen Needle) 32G x 6 mm miscIndications :Type 2 diabetes mellitus without complication, with long-term current use of insulin ([facility]) USE DIRECTED 5 TO 6 TIMES DAILY DIRECTED 200 each 5 025 Active olmesartan-hydr oCHLOROthiazide (BENIcar HCT) 40-25 MG tabletIndicatio ns:Hypertension , unspecified type TAKE 1 TABLET BY MOUTH EVERY DAY 90 tablet 1 025 Active insulin lispro (HumaLOG) 100 UNIT/ML injection 18-30 units subcutaneous with meals and snacks 15 mL Active phenazopyridine (Pyridium) 200 MG tabletIndicatio ns:Dysuria Take 1 tablet (200 mg) by mouth if needed in the morning, at noon, and at bedtime (pain) for up to 2 days. 6 tablet 025 2024 Active insulin lispro (HumaLOG) 100 UNIT/ML injection 2-17 units subcutaneous with meals and snacks 15 mL 025 2024 Discontinued(R eorder (will not trigger notification to Pharmacy)) olmesartan-hydr oCHLOROthiazide (Benicar HCT) 40-25 MG tabletIndicatio ns:Hypertension , unspecified type Take 1 tablet by mouth Once per day. 90 tablet 1 025 2024 Discontinued Active Problems Patient Care Coordination No te Formatting of this note migh t be different from the original. [id number] Abdifatah Muñoz C3/CM Sandy Gimenez RN Problem Noted Date Diagnosed Date Diabetes mellitus, type II, insulin dependent Type II diabetes mellitus with complication 06/2025 Assessment & Plan (02/11/2025 2:54 PM EDT): Lab Results Component Value Date HGBA1C 7.2 (A) 02/09/2025 Continue current regimen Left flank pain 11/10/2024 Assessment & Plan (11/12/2024 7:16 PM EST): Ddx includes msk pain, no hematuria, ultrasound ordered due to hx of renal calculi Peripheral vascular disease 11/10/2024 Assessment & Plan (02/11/2025 2:51 PM EDT): Wound on foot, lle wrapped, in care with wound team, recent debridement Coronary artery disease involving eek heart 0 11/10/2024 Pain of right hip [...] sxs. Referral placed for OP therapy with [facility] in [place]. Provided patient referral letter and agency contact [...] sxs. Provided information for [facility] in [place] for sooner appointments. Assessment & Plan (07/24/2024 7:13 PM EDT): Pt with significant anxiety, related to home life and serious illnesses, ib into meet with patient Panic attacks 07/24/2024 [...] sxs. Provided information for [facility] in [place] for sooner appointments. Amputation of right lower [...] pending , advised him to f/u with technical healthcare consultant Pelvic lymphadenopathy 05/23/2024 Overview (05/23/2024): CT scan abd/pelvis at [facility] on 02/20/24: IMPRESSION: 1. Pelvic lymphadenopathy. [...] does not receive his care in the [facility] system, and there are limited records, including labs, available for review in Care Everywhere. Hgb over the past 2 weeks FILING AND POLISHING SUPERVISOR has ranged from 6.7 to 8.2. Patient has an unknown baseline H&H. Patient underwent TMA of the right foot on February 06, [address] Escalante. This was performed at [facility], and patient was discharged to rehab at [facility] in [place]. Starting on 03/07, patient with increased bleeding from amputation site. He presented to the ED on this date, was seen by podiatry, and given lack of active bleeding and stable H&H, he was DC'd back to rehab. Came back 03/12 with bleeding, however this stopped with elevation and he was again discharged back to [place], only to return on 03/13. He was [...] -Close follow up with Dr. Escalante in [place]. Appointment scheduled for 04/04/2024 at 2:30 PM [...] 06, 2024. This surgery was performed at [facility]. Patient was ultimately discharged to [facility] for ongoing rehab, and was continued on [...] hour with holding parameters Assessment & Plan (02/11/2025 2:51 PM EDT): In care with cardiology, upcoming stress test, Palpitations improving Assessment & Plan (11/12/2024 7:16 PM EST): [...] (HYPERTENSION) WRITTEN ON 09/29/2024 5:25 PM BY VICNETA NIELSEN NP Increase lisinopril to 30 mg [...] Encounters Date Type Department Care Team Description 05/28/2025 3:00 PM EDT Office Visit [address] [address] Digna Arcos ANP Hematuria, unspecified type (Primary Dx); Dysuria; Hypertension associated with diabetes ([facility]) 05/28/2025 Travel 05/28/[address] [address] Vicenta Nielsen NP Nurse Triage 04/30/[address] [address] Vicenta Nielsen NP Medication Question 04/30/[address] [address] Vicenta Nielsen NP Hypertension, unspecified type 04/25/[address] [address] Vicenta Nielsen NP Type 2 diabetes mellitus without complication, with long-term current use of insulin ([facility]) 04/23/2025 Orders Only GENERIC EXTERNAL DATA DEPARTMENT Provider, Generic External Data 04/16/2025 Orders Only [facility] External Provider, [facility] 04/12/[address] [address] Debbi Young RN 04/11/2025 2:00 PM EDT Office Visit [address] [address] Jed Vizcaino CNP Pre-op evaluation (Primary Dx); Muscle spasm 04/11/2025 Travel 04/10/[address] [phone] Jed Vizcaino CNP CHART PREP 04/02/2025 Patient Outreach [address] [address] Vicenta Nielsen NP Care Coordination ([facility] outreach for SDOH PT-1 update-referral completed /) 04/02/2025 Telephone [facility] [address] [place] [phone] Vicenta Nielsen NP Call Back Request 03/30/2025 Patient Outreach [address] [address] Vicenta Nielsen NP Care Coordination ([facility] outreach for SDOH PT-1 and food needs-referral completed /) 03/30/2025 Telephone [facility] [address] [place] [phone] Vicenta Nielsen NP Pt1 03/28/2025 Refill [facility] [address] [place] [phone] Emmanuel Yanez MD Type 2 diabetes mellitus with hyperglycemia, with long-term current use of insulin ([facility]) 03/23/2025 Refill [facility] [address] [place] [phone] Vicenta Nielsen NP rn long term care (current) use of antibiotics 03/18/2025 Refill [facility] [address] [place] [phone] Emmanuel Yanez MD Type 2 diabetes mellitus without complication, with long-term current use of insulin ([facility]) 03/16/2025 Telephone [facility] [address] [place] [phone] Vicenta Nielsen NP pre op 03/13/2025 Telephone [facility] [address] [place] [phone] Vicenta Nielsen NP Medication Question 02/28/2025 Refill [facility] [address] [place] [phone] Kimberly Bloom NP Musculoskeletal pain from Last 3 Months Immunizations Immunization Administration Dates Next Due Influenza Injectable Quadriv [...] Mass Index 42.09 05/28/2025 3:06 PM EDT Plan of Treatment Upcoming Encounters Date Type Department Care Team (Late st Contact Info) Description 06/20/2025 11:30 AM EDT Office Visit [facility] [address] [place], [place] [phone] Vicenta Nielsen NP [address] [place], [place] [phone] Health Maintenance Due Date Last Done Comments [...] 2024 12/25/2022, 10/20/2021, 03/04/2021, Additional history exists Diabetes: Urine Protein Screening 06/02/2025 06/02/2024, 12/31/2022, 11/28/2020 Lipid Panel 06/02/2025 06/02/2024, 12/31/2022 Influenza Vaccine (#1) 2025 , 07/20/2022, 07/04/2019, Additional history exists Diabetes: Hemoglobin A1C 07/12/2025 07 025, 02/09/2025, 11/10/2024, Additional history exists Alcohol/Substance Use Screening 09/29/2025 09/29/2024 SDOH Screening 01/08/2026 01/08/2025 Disability Screening 02/09/2026 02/09/2025 Depression Screening 04/11/2026 04/11/2025, 04/11/20 Tobacco Screening 05/28/2026 05/28/2025 DTaP/Tdap/Td Vaccines (2 - Td or Tdap) [...] DIPSTICK Routine 05/28/2025 3:50 PM EDT Dysuria GLUCOSE, WHOLE BLOOD Routine 04/23/2025 6:50 AM EDT STRESS TEST WITH MYOCARDIAL PERFUSION Routine 04/16/2025 9:49 AM EDT POCT GLUCOSE Routine 04/11/2025 2:38 PM EDT Pre-op evaluation POCT GLYCATED HEMOGLOBIN, TOTAL Routine 04/11/2025 2:37 PM EDT Pre-op evaluation LIPID PANEL, STANDARD Routine 06/02/2024 11:59 AM EDT ALBUMIN, RANDOM URINE W/CREATININE Routine 06/02/2024 11:49 AM EDT from Last 3 Months or Most Recently Relevant to Health Maintenance Results * (ABNORMAL) POCT urinalysis dipstick manually [...] Media Lot # [id number] Lot# Expiration Date 464 Urine 05/28/2025 3:50 PM EDT us [facility] POINT OF CARE TEST ENTER/EDIT OR DERABLES Final Result * (ABNORMAL) Glucose, Whole Blood (04/23/2025 6:50 AM EDT) Glucose, Whole Blood 210(H) 60 - 115 mg/dL [facility] Comment:METER #: [id number] 04/23/2025 6:50 AM EDT 04/23/2025 6:57 AM EDT us Generic External Data Provider LAB BLOOD ORDERAB LES Final Result [facility] [address] [place] [phone] * Stress test with myocardial perfusion (04/16/2025 9:49 AM EDT) 04/16/2025 9:49 AM EDT Narrative [facility] - 04/18/2025 11:24 AM EDT [address] [address] Nuclear Medicine Report Signed Patient: Bam Wise MR#: [id number] 0 : 1965 Acct:[id number] Age/Sex: 59 / M ADM Date: 04/16/25 Loc: [facility] Attending Dr: Oleg Denny MD Ordering Physician: Oleg Denny MD Date of Service: 04/16/25 Procedure(s): NM cardiolite stress test Accession Number(s): [id number] cc: Vicenta Nielsen TOWER DRAGLINE OPERATOR; Oleg Denny MD Lexiscan Myocardial perfusion study Indication: Chest pain Technique: The patient was brought in for a Lexiscan perfusion study on 04/16/2025 and was injected 0.4 mg of Lexiscan intravenously. Within a minute of this injection 40 mCi of sestamibi was given intravenously. Images were obtained using the SPECT gamma camera interlaced with the gating device. Images were obtained in supine position. Resting perfusion study was performed on 04/18/2025. Patient was administered 40 mCi of sestamibi intravenously at rest. Images were then obtained in supine position. Total DLP 171 mGy-cm. Images were processed with the software and compared side to side in short axis, horizontal long axis and vertical long axis views. Findings: Raw aquisition reviewed. Arms by the patient's side. The stress perfusion study showed no significant perfusion abnormality. Both uncorrected as well as CT attenuation corrected images were reviewed. The gated study shows calculated LVEF of 47%, but visually appears higher. LV cavity is normal in size. The gated study shows normal wall thickening and contraction of segments. Resting study shows no significant perfusion abnormality. Gating at rest reveals normal wall motion with ejection fraction at 54%. The findings are consistent with no clear reversible or fixed perfusion defects. NM/NM cardiolite stress test Impression: 1. Myocardial perfusion imaging study shows probably normal myocardial perfusion. 2. Gated LVEF is 47% during stress, visually appears higher; 54% during rest. 3. Transient ischemic dilatation not present. EKG component of the test reported separately. Electronically signed by: Oleg Denny MD 04/18/2025 11:21 AM EDT RP Dictated By: Oleg Denny MD Signed By: <Electronically signed by Oleg Denny MD in OV> 04/18/25 1121 DD/ 0949 TD/TT: 04/18/25 0850 Brewery Technician: Procedure Note Donotuseinterpreter, Image - 04/18/[address] [address] Nuclear Medicine Report Signed Patient: Delilah Wise#: [id number] 0 : 1965Acct:[id number] Age/Sex: 59 / MADM Date: 04/16/25 [facility]: [facility] Attending Dr: Oleg Denny MD Ordering Physician: Oleg Denny MD Date of Service: 04/16/25 Procedure(s): NM cardiolite stress test Accession Number(s): [id number] cc: Vicenta Nielsen TOWER DRAGLINE OPERATOR; Oleg Denny MD Lexiscan Myocardial perfusion study Indication: Chest pain Technique: The patient was brought in for a Lexiscan perfusion study on 04/16/2025 and was injected 0.4 mg of Lexiscan intravenously. Within a minute of this injection 40 mCi of sestamibi was given intravenously. Images were obtained using the SPECT gamma camera interlaced with the gating device. Images were obtained in supine position. Resting perfusion study was performed on 04/18/2025. Patient was administered 40 mCi of sestamibi intravenously at rest. Images were then obtained in supine position. Total DLP 171 mGy-cm. Images were processed with the software and compared side to side in short axis, horizontal long axis and vertical long axis views. Findings: Raw aquisition reviewed. Arms by the patient's side. The stress perfusion study showed no significant perfusion abnormality. Both uncorrected as well as CT attenuation corrected images were reviewed. The gated study shows calculated LVEF of 47%, but visually appears higher. LV cavity is normal in size. The gated study shows normal wall thickening and contraction of segments. Resting study shows no significant perfusion abnormality. Gating at rest reveals normal wall motion with ejection fraction at 54%. The findings are consistent with no clear reversible or fixed perfusion defects. NM/NM cardiolite stress test Impression: 1. Myocardial perfusion imaging study shows probably normal myocardial perfusion. 2. Gated LVEF is 47% during stress, visually appears higher; 54% during rest. 3. Transient ischemic dilatation not present. EKG component of the test reported separately. Electronically signed by: Oleg Denny MD 04/18/2025 11:21 AM EDT Workstation: [employer] Dictated By: Oleg Denny MD Signed By: <Electronically signed by Oleg Denny MD inOV> 04/18/25 1121 DD/ 0949 TD/TT: 04/18/25 0850 Brewery Technician: Result [facility] External Provider CV STRE SS PROCEDURES Final Result Performing Organization Address City/State/[facility] Co de Phone Number [facility] [address] [place] [phone] * (ABNORMAL) POCT Glucose (04/11/2025 2:38 PM EDT) Glucose Blood, POC 266(A) 60 - 200 mg/dL QC Media Lot # [id number] Lot# Expiration Date ,025 Blood Capillary blood specimen / Unknown 04/11/2025 2:38 PM EDT Result [facility] POINT OF CARE TEST ENTER/ EDIT ORDERABLES Final Result * (ABNORMAL) POCT HGB A1C (04/11/2025 2:37 PM EDT) Hemoglobin A1C 7.9(A) 4.0 - 5.7 % QC Media Lot # [id number] Lot# Expiration Date ,627 Blood 04/11/2025 2:37 PM EDT [facility] POINT OF CARE TEST ENTER/ EDIT ORDERABLES Final Result * (ABNORMAL) Lipid Panel, Standard (06/02/2024 11:59 AM EDT) Triglycerides 61 <150 mg/dL [facility] Comment:Desirable Triglyceri de: less than 150 mg/dLBorderline High Triglyceride 150-199 mg/dLHigh Triglyceride: 200-499 mg/dLVery High Triglyceride: greater than or equal to 5OO mg/dL Cholesterol 85 <200 mg/dL [facility] Comment:Desirable Cholestero l: less than 200 mg/dLBorderline High Cholesterol: 200-239 mg/dLHigh Cholesterol: greater than 239 mg/dL LDL Cholesterol Calculated 43 <100 mg/dL [facility] Comment:Desirable LDL: less than 100 mg/dLNear Optimal/Above Optimal LDL: 110- 129 mg/dLBorderline High LDL: 130-159 mg/dLHigh LDL: 160-189 mg/dLVery High LDL: greater than or equal to 190 mg/dL HDL Cholesterol 30(L) >40 mg/dL [facility] Comment:Desirable HDL: great er than 40 mg/dL Note: This HDL assay may give artificially low results in patients with liver disease. 06/02/2024 11:5 9 AM EDT 06/02/2024 11:59 AM EDT us Generic External Data Provider LAB BLOOD ORDERAB LES Final Result Performing Organization Address City/State/[facility] Co de Phone Number [facility] [address] [place] [phone] * Albumin, Random Urine W/Creatinine (06/02/2024 11:49 AM EDT) Creatinine, Urine 75.26 mg/dL [facility] Microalbumin Urine 10.0 mg/L [facility] Microalbum Creatinine Ratio Ur 13.2 <30 ug/mg cr [facility] Comment:Albumin/Creatinine R atio Reference Ranges: Normal: < 30 ug/mg creatinine Microalbuminuria: 30 - 300 ug/mg creatinineClinical Albuminuria: > 300 ug/mg creatinine 06/02/2024 11:4 9 AM EDT 06/02/2024 1:11 PM EDT us Generic External Data Provider LAB URINE ORDERAB LES Final Result [facility] [address] [place] [phone] from Last 3 Months or Most Recently Relevant to Health Maintenance Insurance [employer] C3 Care Teams Loan Operations Specialist Relationship Specialty Start Date End Date Vicenta Nielsen NP [address] [place] [phone] PCP - General Family Medicine 12/22/23 [employer] 04/29/24 abigail mcneill Boat AssemblerButton Buttonhole Marker 10/18/24
--- OUTSIDE RECORDS SUMMARY | 2025-05-28 18:20 | XMS_ITS | Encounter Summary ---
Author Organization [employer] Address [address] [place] [address] Care Team Providers Care Welder Plasma Arc Name Role Phone Vicenta Nielsen NP Primary Care Provider [phone] Reason for Visit * Reason Onset Date Comments PT1 05/29/2024 Encounter Details Date Type Department Care Team (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 documented in this encounter Plan of Treatment Upcoming Encounters Date Type Department Care Team (Late st Contact Info) Description 06/20/2025 11:30 AM EDT Office Visit [facility] [address] [place] [address] Vicenta Nielsen NP [address] [place] [address] documented as of this encounter Visit Diagnoses Not on filedocumented in this encounter Additional Health Concerns Assessment Noted Time PHQ-9 Depression Total Score: 5 01/04/20 10:57 AM EDT documented as of this encounter Care Teams Welder Plasma Arc Relationship Specialty Start Date End Date Vicenta Nielsen NP [address] [place] [address] PCP - General Family Medicine 12/22/23 [email or web address] 04/29/24 abigail [email or web address] Computer Information Systems ProfessorOstomy Nurse 10/18/24 documented as of this encounter
--- OUTSIDE RECORDS SUMMARY | 2025-05-28 18:20 | XMS_ITS | Encounter Summary ---
Author Organization [employer] Address [address] [place] [address] 7 [place] [address] Care Team Providers Care Glass Edger Name Role Phone Valery Berrios MD Primary Care Provider [phone] Vicenta Nielsen NP Primary Care Provider [phone] Reason for Visit * Reason Onset Date Comments pt1 03/03/2023 Encounter Details Date Type Department Care Team (Late st Contact Info) Description 03/03/2023 Telephone [facility] MEDICINE [address] [place] [address] Valery Berrios MD [address] [place] [address] pt1 Social History Tobacco Use Types Packs/Day [...] Date: every wednesday Time: 10 am address: [address] [place] [address] [place] [address] specialty: # visits: visual merchandising coordinator: no Wheelchair: cane Date: Time: address: [address] [place] [address] specialty: # visits: visual merchandising coordinator: no Wheelchair: cane documented in this encounter Plan of Treatment Upcoming Encounters Date Type Department Care Team (Late st Contact Info) Description 06/20/2025 11:30 AM EDT Office Visit [facility] MED[facility] [address] [place], [place] [phone] Vicenta Nielsen NP [address] [place], [place] documented as of this encounter Visit Diagnoses Not on filedocumented in this encounter Additional Health Concerns Assessment Noted Time PHQ-9 Depression Total Score: 0 10/20/19 23 2:41 PM EST documented as of this encounter Care Teams Glass Edger Relationship Specialty Start Date End Date Valery Berrios MD [address] [place] [address] PCP - General Internal Medicine 12/01/18 12/21/23 Vicenta Nielsen NP [address] [place] [address] PCP - General Family Medicine 12/22/23 [employer] 04/29/24 abigail mcneill Commercial LenderEquipment Inspector 10/18/24 documented as of this encounter
--- OUTSIDE RECORDS SUMMARY | 2025-05-28 18:20 | XMS_ITS | Encounter Summary ---
Author Organization [facility] [place] [address] Care Team Providers Care Shortage Worker Name Role Phone Vicenta Nielsen RAZ Primary Care Provider [phone] Encounter Details Date Type Department Care Team (Late st Contact Info) Description 08/07/2024 Lab Requisition [facility] - Main Lab [address] [facility] [place] [address] Mary Song MD [address] [address] Obesity, unspecified Social History Tobacco Use Types [...] K/mcL LAB HEMETOLOGY METHOD 08/07/2024 7:14 PM [facility] RBC 3.80(L) 4.50 - 5.50 M/mcL LAB HEMETOLOGY METHOD 08/07/2024 7:14 PM [facility] Hemoglobin 9.9(L) 13.5 - 17.5 g/dL LAB HEMETOLOGY METHOD 08/07/2024 7:14 PM [facility] Hematocrit 31.4(L) 42.0 - 54.0 % LAB HEMETOLOGY METHOD 08/07/2024 7:14 PM [facility] MCV 83.7 79.0 - 98.0 FL LAB HEMETOLOGY METHOD 08/07/2024 7:14 PM [facility] MCH 26.4(L) 27.0 - 32.0 pcg LAB HEMETOLOGY METHOD 08/07/2024 7:14 PM [facility] MCHC 31.5(L) 32.0 - 37.0 g/dL LAB HEMETOLOGY METHOD 08/07/2024 7:14 PM [facility] RDW 14.6 11.0 - 15.0 % LAB HEMETOLOGY METHOD 08/07/2024 7:14 PM [facility] Platelets 186 130 - 400 K/mcL LAB HEMETOLOGY METHOD 08/07/2024 7:14 PM [facility] MPV 12.0(H) 7.0 - 11.0 FL LAB HEMETOLOGY METHOD 08/07/2024 7:14 PM [facility] NRBC 0.0 <1.0 % LAB HEMETOLOGY METHOD 08/07/2024 7:14 PM [facility] NRBC Absolute 0.00 <0.10 K/mcL LAB HEMETOLOGY METHOD 08/07/2024 7:14 PM [facility] Neutrophils Relative 59.9 % LAB HEMETOLOGY METHOD 08/07/2024 7:14 PM [facility] Lymphocytes Relative 25.9 % LAB HEMETOLOGY METHOD 08/07/2024 7:14 PM [facility] Monocytes Relative 9.6 % LAB HEMETOLOGY METHOD 08/07/2024 7:14 PM [facility] Eosinophils Relative 3.5 % LAB HEMETOLOGY METHOD 08/07/2024 7:14 PM [facility] Basophils Relative 0.9 % LAB HEMETOLOGY METHOD 08/07/2024 7:14 PM [facility] Immature Granulocytes Relative 0.2 % LAB HEMETOLOGY METHOD 08/07/2024 7:14 PM [facility] Neutrophils Absolute 3.26 1.50 - 7.00 K/mcL LAB HEMETOLOGY METHOD 08/07/2024 7:14 PM [facility] Lymphocytes Absolute 1.41 1.00 - 5.00 K/mcL LAB HEMETOLOGY METHOD 08/07/2024 7:14 PM [facility] Monocytes Absolute 0.52 0.20 - 1.00 K/mcL LAB HEMETOLOGY METHOD 08/07/2024 7:14 PM [facility] Eosinophils Absolute 0.19 0.00 - 0.50 K/mcL LAB HEMETOLOGY METHOD 08/07/2024 7:14 PM [facility] Basophils Absolute 0.05 0.00 - 0.20 K/mcL LAB HEMETOLOGY METHOD 08/07/2024 7:14 PM [facility] Immature Granulocytes Absolute 0.01 0.00 - 0.03 K/mcL LAB HEMETOLOGY METHOD 08/07/2024 7:14 PM EST [facility] Blood Venous blood specimen / Unknown Venipuncture / Unknown 08/07/2024 08/07/2024 7:01 PM EST Mary Song MD LAB BLOOD ORDERABLES Final Result Performing Organization Address City/[facility]/ZIP Co de Phone Number [facility] [address] [place] [address], [place] [phone] * Creatine kinase (08/07/2024 12:00 AM EST) Pathologist [facility] Total CK 48 22 - 269 unit/L LAB CHEMISTRY METHOD 08/07/2024 7:36 PM [facility] Blood Venous blood specimen / Unknown Venipuncture / Unknown 08/07/2024 08/07/2024 7:01 PM EST Mary Song MD LAB BLOOD ORDERABLES Final Result Performing Organization Address [facility]/ZIP Co de Phone Number [facility] [address] [place] [address], [place] [phone] * (ABNORMAL) Comprehensive metabolic panel (08/07/2024 12:00 AM EST) [facility] Sodium 135 133 - 145 mmol/L LAB CHEMISTRY METHOD 08/30/2024 9:16 AM [facility] Potassium 4.6 3.5 - 5.5 mmol/L LAB CHEMISTRY METHOD 08/30/2024 9:16 AM [facility] Chloride 101 96 - 110 mmol/L LAB CHEMISTRY METHOD 08/30/2024 9:16 AM [facility] CO2 28 21 - 32 mmol/L LAB CHEMISTRY METHOD 08/30/2024 9:16 AM [facility] Anion Gap 6 3 - 11 LAB CHEMISTRY METHOD 08/30/2024 9:16 AM [facility] Glucose 252(H) 70 - 100 mg/dL LAB CHEMISTRY METHOD 08/30/2024 9:16 AM [facility] BUN 29(H) 5 - 25 mg/dL LAB CHEMISTRY METHOD 08/30/2024 9:16 AM [facility] Creatinine 1.00 0.70 - 1.30 mg/dL LAB CHEMISTRY METHOD 08/30/2024 9:16 AM [facility] eGFR 87 >=60 mL/min/1. 73m2 LAB CHEMISTRY METHOD 08/30/2024 9:16 AM [facility] LAB Comment:Calculation based on the Chronic Kidney Disease Epidemiology Collaboration (CKD-EPI) equation refit without adjustment for race. BUN/Creatinine Ratio 29.0 LAB CHEMISTRY METHOD 08/30/2024 9:16 AM [facility] Calcium 9.5 8.5 - 10.5 mg/dL LAB CHEMISTRY METHOD 08/30/2024 9:16 AM [facility] AST (SGOT) 14 10 - 42 unit/L LAB CHEMISTRY METHOD 08/30/2024 9:16 AM [facility] ALT (SGPT) 22 10 - 60 unit/L LAB CHEMISTRY METHOD 08/30/2024 9:16 AM [facility] Alkaline Phosphatase 82 42 - 121 unit/L LAB CHEMISTRY METHOD 08/30/2024 9:16 AM [facility] Total Protein 7.4 6.0 - 8.0 g/dL LAB CHEMISTRY METHOD 08/30/2024 9:16 AM [facility] Albumin 3.7 3.2 - 5.0 g/dL LAB CHEMISTRY METHOD 08/30/2024 9:16 AM [facility] Total Bilirubin 0.2 0.0 - 1.4 mg/dL LAB CHEMISTRY METHOD 08/30/2024 9:16 AM [facility] Blood Venous blood specimen / Unknown Venipuncture / Unknown 08/07/2024 08/07/2024 7:01 PM EST us Mary Song MD LAB BLOOD ORDERABLES Edite d Result - Final [facility] [address] [place] [address], documented in this encounter Visit Diagnoses Diagnosis Obesity, unspecified documented in this encounter Care Teams Shortage Worker Relationship Specialty Start Date End Date Vicenta Nielsen FNP [address] [place] [address] PCP - General 05/26/24 documented as of this encounter
--- OUTSIDE RECORDS SUMMARY | 2025-05-28 18:20 | XMS_ITS | Encounter Summary ---
Author Organization [employer] Address [address] [place] [address] Street 7[address] [place] [address] Care Team Providers Care President And Chief Operating Officer Name Role Phone Vicenta Nielsen NP Primary Care Provider [phone] Reason for Visit * Reason Onset Date Comments PT-1 12/01/2024 Encounter Details Date Type Department Care Team ([facility] st Contact Info) Description 12/01/2024 Telephone [facility] MEDICINE [address] [place], [place] [phone] Vicenta Nielsen NP [address] [place] [address] PT-1 Social History Tobacco Use Types Packs/Day [...] Status of prior message. Contact pt at [phone] * Telephone Encounter - Jacobo Ross - 12/01/2024 11:59 AM EST Patient calling requesting PT1 Home Address verified: Y/N: Yes Provider name or facility name: [facility] [address] [place] [address] Escort needed: Y/N: Yes Do you have a wheelchair: Y/N: Yes If yes- Manual or electric: Electric Visits: (amount of visits) ( x monthly, weekly, daily) 5 times a month documented in this encounter Plan of Treatment Upcoming Encounters Date Type Department Care Team (Late st Contact Info) Description 06/20/2025 11:30 AM EDT Office Visit [facility] MEDICINE [address] [place] [address] Vicenta Nielsen NP [address] [place] [address] documented as of this encounter Visit Diagnoses Not on filedocumented in this encounter Additional Health Concerns Assessment Noted Time PHQ-9 Depression Total Score: 7 07/25/20 24 9:24 AM EDT documented as of this encounter Care Teams President And Chief Operating Officer Relationship Specialty Start Date End Date Vicenta Nielsen NP [address] [place] [address] PCP - General Family Medicine 12/22/23 [employer] 04/29/24 abigail mcneill Cooling Machine OperatorBrownfield Redevelopment Site Manager 10/18/24 documented as of this encounter
--- OUTSIDE RECORDS SUMMARY | 2025-05-28 18:20 | XMS_ITS | Encounter Summary ---
Author Organization [email or web address] Address [address] [place] [address] [facility] [place] [address] Care Team Providers Care Compliance And Control Analyst Name Role Phone Valery Berrios MD Primary Care Provider [phone] Vicenta Nielsen NP Primary Care Provider [phone] Reason for Visit * Reason Onset Date Comments PT1 11/18/2022 Encounter Details Date Type Department Care Team ([facility] st Contact Info) Description 11/18/2022 Telephone [facility]S [address] [place] [address] Valery Berrios MD [address] [place] [address] PT1 Social History Tobacco Use Types Packs/Day [...] from pt requesting for a PT1 Location: [address] [place] [address] Specialty: All appts Time: n/a Date: n/a 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 Pt states previous PT1 will on December 09, 2022 If any question please contact pt at [phone] documented in this encounter Plan of Treatment Upcoming Encounters Date Type Department Care Team ([facility] st Contact Info) Description 06/20/2025 11:30 AM EDT Office Visit [facility] MEDICINE [address] [place] [address] Vicenta Nielsen NP [address] [place] [address] documented as of this encounter Visit Diagnoses Not on filedocumented in this encounter Additional Health Concerns Assessment Noted Time PHQ-9 Depression Total Score: 0 10/20/19 23 2:41 PM EST documented as of this encounter Care Teams Compliance And Control Analyst Relationship Specialty Start Date End Date Valery Berrios MD [address] [place] [address] PCP - General Internal Medicine 12/01/18 12/21/23 Vicenta Nielsen NP [address] [place] [address] PCP - General Family Medicine 12/22/23 [employer] 04/29/24 abigail mcneill Blast Furnace HelperFine Hairer 10/18/24 documented as of this encounter
--- OUTSIDE RECORDS SUMMARY | 2025-05-28 18:20 | XMS_ITS | Encounter Summary ---
Author Organization [employer] Address [address] [place] [address] [facility] [place] [address] Care Team Providers Care Sweat Band Sewer Name Role Phone Valery Berrios MD Primary Care Provider [phone] Vicenta Nielsen NP Primary Care Provider [phone] Reason for Visit * Reason Onset Date Comments Ultrasound Status 11/18/2022 Encounter Details Date Type Department Care Team ([facility] st Contact Info) Description 11/18/2022 Telephone [facility] & PEDS [address] [place] [address] Valery Berrios MD [address] [place] [address] Ultrasound Status Social History Tobacco Use Types [...] good effect. Pt informed this RN checked [facility] and there is no dx of his complain. Pt advised letter cannot be written without appropriate dx and that pt can call [facility] back with the numberfor the urologist so that PCP's office can f/u with them to request notes and update dx. Pt also gave this RN the number to the methadone clinic to f/u. RN called [phone], phone recording statesnumber you have dialed is not in service. Pt agreed to call [facility] back with the number for the [...] understand him. States PCP may not understand Thai or that he may just be being prejudice. Advised will send to PCP to review. Will call pt with response. Pt agrees. * Telephone Encounter - Isaiambrosio Jeff Burciaga - 11/18/2022 3:34 PM EST Tc from pt requesting Ultrasound results that he had done last Wednesday,. Pt is also requesting a letter from provider, stating that pt has trouble urinating and could use swabs except urinating, If any question please contact the clinic at [phone] [facility] [place] [facility]. Pt is also requesting for his Coordinator to give him a call back. If any questions please contact pt at [phone] documented in this encounter Plan of Treatment Upcoming Encounters Date Type Department Care Team (Late st Contact Info) Description 06/20/2025 11:30 AM EDT Office Visit [facility] MEDICINE [address] [place] [address] Vicenta Nielsen NP [address] [place] [address] documented as of this encounter Visit Diagnoses Not on filedocumented in this encounter Additional Health Concerns Assessment Noted Time PHQ-9 Depression Total Score: 0 10/20/19 23 2:41 PM EST documented as of this encounter Care Teams Sweat Band Sewer Relationship Specialty Start Date End Date Valery Berrios MD [address] [place] [address] PCP - General Internal Medicine 12/01/18 12/21/23 Vicenta Nielsen NP 230 [place] [address] PCP - General Family Medicine 12/22/23 [employer] 04/29/24 abigail [email or web address] Manager LicensingCommunications Administrator 10/18/24 documented as of this encounter
--- OUTSIDE RECORDS SUMMARY | 2025-05-28 18:20 | XMS_ITS | Encounter Summary ---
Author Organization [facility] [place] [address] Care Team Providers Care Aggregate Conveyor Operator Name Role Phone Vicenta Nielsen RAZ Primary Care Provider [phone] Encounter Details Date Type Department Care Team (Late st Contact Info) Description 08/30/2024 Lab Requisition [facility] - Main Lab [address] [facility] [place] [address] Mary Song MD [address] [address] Cellulitis, unspecified Social History Tobacco Use Types [...] K/mcL LAB HEMETOLOGY METHOD 08/30/2024 9:13 AM [facility] LAB RBC 3.90(L) 4.50 - 5.50 M/mcL LAB HEMETOLOGY METHOD 08/30/2024 9:13 AM [facility] Hemoglobin 10.5(L) 13.5 - 17.5 g/dL LAB HEMETOLOGY METHOD 08/30/2024 9:13 AM [facility] LAB Hematocrit 32.8(L) 42.0 - 54.0 % LAB HEMETOLOGY METHOD 08/30/2024 9:13 AM [facility] LAB MCV 84.5 79.0 - 98.0 FL LAB HEMETOLOGY METHOD 08/30/2024 9:13 AM [facility] LAB MCH 27.1 27.0 - 32.0 pcg LAB HEMETOLOGY METHOD 08/30/2024 9:13 AM [facility] LAB MCHC 32.0 32.0 - 37.0 g/dL LAB HEMETOLOGY METHOD 08/30/2024 9:13 AM [facility] LAB RDW 14.9 11.0 - 15.0 % LAB HEMETOLOGY METHOD 08/30/2024 9:13 AM [facility] Platelets 206 130 - 400 K/mcL LAB HEMETOLOGY METHOD 08/30/2024 9:13 AM [facility] MPV 12.6(H) 7.0 - 11.0 FL LAB HEMETOLOGY METHOD 08/30/2024 9:13 AM [facility] NRBC 0.0 <1.0 % LAB HEMETOLOGY METHOD 08/30/2024 9:13 AM [facility] NRBC Absolute 0.00 <0.10 K/mcL LAB HEMETOLOGY METHOD 08/30/2024 9:13 AM [facility] Neutrophils Relative 63.6 % LAB HEMETOLOGY METHOD 08/30/2024 9:13 AM [facility] Lymphocytes Relative 20.7 % LAB HEMETOLOGY METHOD 08/30/2024 9:13 AM [facility] Monocytes Relative 11.6 % LAB HEMETOLOGY METHOD 08/30/2024 9:13 AM [facility] Eosinophils Relative 3.0 % LAB HEMETOLOGY METHOD 08/30/2024 9:13 AM [facility] Basophils Relative 1.0 % LAB HEMETOLOGY METHOD 08/30/2024 9:13 AM [facility] Immature Granulocytes Relative 0.1 % LAB HEMETOLOGY METHOD 08/30/2024 9:13 AM [facility] Neutrophils Absolute 4.26 1.50 - 7.00 K/mcL LAB HEMETOLOGY METHOD 08/30/2024 9:13 AM [facility] Lymphocytes Absolute 1.39 1.00 - 5.00 K/mcL LAB HEMETOLOGY METHOD 08/30/2024 9:13 AM [facility] Monocytes Absolute 0.78 0.20 - 1.00 K/mcL LAB HEMETOLOGY METHOD 08/30/2024 9:13 AM [facility] Eosinophils Absolute 0.20 0.00 - 0.50 K/mcL LAB HEMETOLOGY METHOD 08/30/2024 9:13 AM [facility] Basophils Absolute 0.07 0.00 - 0.20 K/mcL LAB HEMETOLOGY METHOD 08/30/2024 9:13 AM [facility] Immature Granulocytes Absolute 0.01 0.00 - 0.03 K/mcL LAB HEMETOLOGY METHOD 08/30/2024 9:13 AM EST [facility] Blood Venous blood specimen / Unknown 08/29/2024 08/30/2024 9:03 AM EST us Mary Snog MD LAB BLOOD ORDERABLES Final Result [facility] [address] [place] [address], [place] [phone] * Creatine kinase (08/29/2024 12:00 AM EST) Pathologist [facility] Total CK 63 22 - 269 unit/L LAB CHEMISTRY METHOD 08/30/2024 9:25 AM [facility] Blood Venous blood specimen / Unknown 08/29/2024 08/30/2024 9:03 AM EST Mary Song MD LAB BLOOD ORDERABLES Final Result Performing Organization Address City/[facility]/ZIP Co de Phone Number [facility] [address] [place] [address], [place] [phone] * (ABNORMAL) Comprehensive metabolic panel (08/29/2024 12:00 AM EST) [facility] Sodium 138 133 - 145 mmol/L LAB CHEMISTRY METHOD 08/30/2024 9:25 AM [facility] Potassium 4.8 3.5 - 5.5 mmol/L LAB CHEMISTRY METHOD 08/30/2024 9:25 AM [facility] Chloride 105 96 - 110 mmol/L LAB CHEMISTRY METHOD 08/30/2024 9:25 AM [facility] CO2 27 21 - 32 mmol/L LAB CHEMISTRY METHOD 08/30/2024 9:25 AM [facility] Anion Gap 6 3 - 11 LAB CHEMISTRY METHOD 08/30/2024 9:25 AM [facility] Glucose 104(H) 70 - 100 mg/dL LAB CHEMISTRY METHOD 08/30/2024 9:25 AM [facility] BUN 26(H) 5 - 25 mg/dL LAB CHEMISTRY METHOD 08/30/2024 9:25 AM [facility] Creatinine 1.10 0.70 - 1.30 mg/dL LAB CHEMISTRY METHOD 08/30/2024 9:25 AM [facility] eGFR 77 >=60 mL/min/1. 73m2 LAB CHEMISTRY METHOD 08/30/2024 9:25 AM [facility] Comment:Calculation based on the Chronic Kidney Disease Epidemiology Collaboration (CKD-EPI) equation refit without adjustment for race. BUN/Creatinine Ratio 23.6 LAB CHEMISTRY METHOD 08/30/2024 9:25 AM [facility] Calcium 9.4 8.5 - 10.5 mg/dL LAB CHEMISTRY METHOD 08/30/2024 9:25 AM [facility] AST (SGOT) 16 10 - 42 unit/L LAB CHEMISTRY METHOD 08/30/2024 9:25 AM [facility] ALT (SGPT) 24 10 - 60 unit/L LAB CHEMISTRY METHOD 08/30/2024 9:25 AM [facility] Alkaline Phosphatase 91 42 - 121 unit/L LAB CHEMISTRY METHOD 08/30/2024 9:25 AM [facility] Total Protein 7.7 6.0 - 8.0 g/dL LAB CHEMISTRY METHOD 08/30/2024 9:25 AM [facility] Albumin 4.0 3.2 - 5.0 g/dL LAB CHEMISTRY METHOD 08/30/2024 9:25 AM [facility] Total Bilirubin 0.2 0.0 - 1.4 mg/dL LAB CHEMISTRY METHOD 08/30/2024 9:25 AM [facility] Blood Venous blood specimen / Unknown 08/29/2024 08/30/2024 9:03 AM EST us Mary Song MD LAB BLOOD ORDERABLES Final Result [facility] [address] [place] [address], documented in this encounter Visit Diagnoses Diagnosis Cellulitis, unspecified documented in this encounter Care Teams Aggregate Conveyor Operator Relationship Specialty Start Date End Date Vicenta Nielsen FNP [address] [place] [phone] PCP - General 05/26/24 documented as of this encounter
--- OUTSIDE RECORDS SUMMARY | 2025-05-28 18:20 | XMS_ITS | Encounter Summary ---
Author Organization [facility] [place] [address] Care Team Providers Care Manager Planning Name Role Phone Vicenta Nielsen RAZ Primary Care Provider [phone] Encounter Details Date Type Department Care Team (Late st Contact Info) Description 08/21/2024 Lab Requisition [facility] - Main Lab [address] [facility] [place] [address] Steven Naik MD [address] [place] [phone] Cellulitis, unspecified Social History Tobacco Use Types [...] CBC auto differential (08/21/2024 12:00 AM EST) [facility] WBC 6.4 4.8 - 10.8 K/mcL LAB HEMETOLOGY METHOD 08/21/2024 8:22 PM [facility] RBC 3.90(L) 4.50 - 5.50 M/mcL LAB HEMETOLOGY METHOD 08/21/2024 8:22 PM [facility] Hemoglobin 10.3(L) 13.5 - 17.5 g/dL LAB HEMETOLOGY METHOD 08/21/2024 8:22 PM [facility] Hematocrit 32.4(L) 42.0 - 54.0 % LAB HEMETOLOGY METHOD 08/21/2024 8:22 PM [facility] MCV 83.7 79.0 - 98.0 FL LAB HEMETOLOGY METHOD 08/21/2024 8:22 PM [facility] MCH 26.6(L) 27.0 - 32.0 pcg LAB HEMETOLOGY METHOD 08/21/2024 8:22 PM [facility] MCHC 31.8(L) 32.0 - 37.0 g/dL LAB HEMETOLOGY METHOD 08/21/2024 8:22 PM [facility] RDW 14.9 11.0 - 15.0 % LAB HEMETOLOGY METHOD 08/21/2024 8:22 PM [facility] Platelets 208 130 - 400 K/mcL LAB HEMETOLOGY METHOD 08/21/2024 8:22 PM [facility] MPV 11.8(H) 7.0 - 11.0 FL LAB HEMETOLOGY METHOD 08/21/2024 8:22 PM [facility] NRBC 0.0 <1.0 % LAB HEMETOLOGY METHOD 08/21/2024 8:22 PM [facility] NRBC Absolute 0.00 <0.10 K/mcL LAB HEMETOLOGY METHOD 08/21/2024 8:22 PM [facility] Neutrophils Relative 66.3 % LAB HEMETOLOGY METHOD 08/21/2024 8:22 PM [facility] Lymphocytes Relative 21.1 % LAB HEMETOLOGY METHOD 08/21/2024 8:22 PM [facility] Monocytes Relative 9.8 % LAB HEMETOLOGY METHOD 08/21/2024 8:22 PM [facility] Eosinophils Relative 2.0 % LAB HEMETOLOGY METHOD 08/21/2024 8:22 PM [facility] Basophils Relative 0.5 % LAB HEMETOLOGY METHOD 08/21/2024 8:22 PM [facility] Immature Granulocytes Relative 0.3 % LAB HEMETOLOGY METHOD 08/21/2024 8:22 PM [facility] Neutrophils Absolute 4.24 1.50 - 7.00 K/mcL LAB HEMETOLOGY METHOD 08/21/2024 8:22 PM [facility] Lymphocytes Absolute 1.35 1.00 - 5.00 K/mcL LAB HEMETOLOGY METHOD 08/21/2024 8:22 PM [facility] Monocytes Absolute 0.63 0.20 - 1.00 K/mcL LAB HEMETOLOGY METHOD 08/21/2024 8:22 PM [facility] Eosinophils Absolute 0.13 0.00 - 0.50 K/mcL LAB HEMETOLOGY METHOD 08/21/2024 8:22 PM [facility] Basophils Absolute 0.03 0.00 - 0.20 K/mcL LAB HEMETOLOGY METHOD 08/21/2024 8:22 PM [facility] Immature Granulocytes Absolute 0.02 0.00 - 0.03 K/mcL LAB HEMETOLOGY METHOD 08/21/2024 8:22 PM EST [facility] Blood Venous blood specimen / Unknown 08/21/2024 08/21/2024 8:09 PM EST Steven Naik MD LAB BLOOD ORDERABLES Final Re sult Performing Organization Address City/[facility]/ZIP Co de Phone Number [facility] [address] [place] [address], [place] [phone] * Creatine kinase (08/21/2024 12:00 AM EST) Pathologist [facility] Total CK 54 22 - 269 unit/L LAB CHEMISTRY METHOD 08/21/2024 8:29 PM [facility] Blood Venous blood specimen / Unknown 08/21/2024 08/21/2024 8:09 PM EST Steven Naik MD LAB BLOOD ORDERABLES Final Re sult [facility] [address] [place] [address], [place] [phone] * (ABNORMAL) Comprehensive metabolic panel (08/21/2024 12:00 AM EST) Pathologist [facility] Sodium 138 133 - 145 mmol/L LAB CHEMISTRY METHOD 08/21/2024 8:29 PM [facility] Potassium 4.5 3.5 - 5.5 mmol/L LAB CHEMISTRY METHOD 08/21/2024 8:29 PM [facility] Chloride 105 96 - 110 mmol/L LAB CHEMISTRY METHOD 08/21/2024 8:29 PM [facility] CO2 28 21 - 32 mmol/L LAB CHEMISTRY METHOD 08/21/2024 8:29 PM [facility] Anion Gap 5 3 - 11 LAB CHEMISTRY METHOD 08/21/2024 8:29 PM [facility] Glucose 130(H) 70 - 100 mg/dL LAB CHEMISTRY METHOD 08/21/2024 8:29 PM [facility] BUN 28(H) 5 - 25 mg/dL LAB CHEMISTRY METHOD 08/21/2024 8:29 PM [facility] Creatinine 1.02 0.70 - 1.30 mg/dL LAB CHEMISTRY METHOD 08/21/2024 8:29 PM [facility] eGFR 85 >=60 mL/min/1. 73m2 LAB CHEMISTRY METHOD 08/21/2024 8:29 PM [facility] Comment:Calculation based on the Chronic Kidney Disease Epidemiology Collaboration (CKD-EPI) equation refit without adjustment for race. BUN/Creatinine Ratio 27.5 LAB CHEMISTRY METHOD 08/21/2024 8:29 PM [facility] Calcium 9.4 8.5 - 10.5 mg/dL LAB CHEMISTRY METHOD 08/21/2024 8:29 PM [facility] AST (SGOT) 15 10 - 42 unit/L LAB CHEMISTRY METHOD 08/21/2024 8:29 PM [facility] ALT (SGPT) 19 10 - 60 unit/L LAB CHEMISTRY METHOD 08/21/2024 8:29 PM [facility] Alkaline Phosphatase 90 42 - 121 unit/L LAB CHEMISTRY METHOD 08/21/2024 8:29 PM [facility] Total Protein 7.6 6.0 - 8.0 g/dL LAB CHEMISTRY METHOD 08/21/2024 8:29 PM [facility] Albumin 3.9 3.2 - 5.0 g/dL LAB CHEMISTRY METHOD 08/21/2024 8:29 PM [facility] Total Bilirubin 0.3 0.0 - 1.4 mg/dL LAB CHEMISTRY METHOD 08/21/2024 8:29 PM [facility] Blood Venous blood specimen / Unknown 08/21/2024 08/21/2024 8:09 PM EST us Stevencarlos Naik MD LAB BLOOD ORDERABLES Final Re sult [facility] [address] [place] [address], [place] [phone] documented in this encounter Visit Diagnoses Diagnosis Cellulitis, unspecified documented in this encounter Care Teams Manager Planning Relationship Specialty Start Date End Date Vicenta Nielsen FNP [address] [place] [phone] PCP - General 05/26/24 documented as of this encounter
--- OUTSIDE RECORDS SUMMARY | 2025-05-28 18:20 | XMS_ITS | Clinical Summary ---
Author Organization [address] Address [address] [place] [phone] Phone Care Team Providers Care Mower Operator Name Role Phone Vicenta Nielsen RAZ Primary Care Provider [phone] Encounters Date Type Department Care Team Description 05/08/2025 10:30 AM EDT Treatment [address] [phone] Yoav Freitas, PT History of right below knee amputation ([facility]/HCC V24, CMS/HCC V28) (Primary Dx) 05/03/2025 11:00 AM EDT Treatment [address] [phone] Jason Hernandez, SCHOOL PSYCHOMETRIST History of right below knee amputation (CMS/HCC V24, CMS/HCC V28) (Primary Dx) 04/02/2025 10:45 AM EDT Treatment [address] [phone] Yoav Freitas, PT History of right below knee amputation (CMS/HCC V24, CMS/HCC V28) (Primary Dx) 03/29/2025 10:00 AM EDT Treatment [address] [phone] Yoav Freitas, PT History of right below knee amputation (CMS/HCC V24, CMS/HCC V28) (Primary Dx) 03/27/2025 10:30 AM EDT Treatment [facility] [address] [phone] Yoav Freitas, PT History of right below knee amputation (CMS/HCC V24, CMS/HCC V28) (Primary Dx) 03/22/2025 10:30 AM EDT Treatment [facility] [address] [phone] Yoav Freitas, PT History of right below knee amputation (CMS/HCC V24, CMS/HCC V28) (Primary Dx) from Last 3 Months Immunizations Name Administration [...] Health Maintenance Due Date Last Done Comments Diabetes: Annual Foot Exam 1975 Diabetes: Annual Retina Eye Exam 1975 Hepatitis A Vaccines (1 of 2 - Risk 2-dose series) 1984 Hepatitis B Vaccines (1 of 3 - 19+ 3-dose series) 1984 Colorectal Cancer Screening: Colonoscopy 11/02/2023 HIV Screening 11/02/2023 Hepatitis C Screening 11/02/2023 Social Influencers of Health Screening 11/02/2023 COVID-19 Vaccine ( season) 2024 03/04/2021, 02/11/2021 Depression Screening 10/04/2024 Diabetes: Annual Urine Albumin-Creatinine Ratio (uACR) 02/08/2025 Influenza Vaccine (#1) 2025 , 07/20/2022, 07/04/2019, Additional history exists Diabetes: Blood Sugar Control Test (HGBA1C) 10/12/2025 04/11/2025, 02/09/2025, 11/10/2024 Diabetes: Annual GFR (Glomerular Filtration Rate) 11/15/2025 11/15/2024, 08/29/2024, 08/21/2024, Additional history exists Hypertension/CHF/CAD Annual BMP Blood Test 11/15/2025 11/15/2024, 08/29/2024, 08/21/2024, Additional history exists Cholesterol Screening (Lipid Panel) 06/02/2029 06/02/2024 DTaP,Tdap,and Td Vaccines (2 - Td or Tdap) 07/04/2029 07/04/2019 RSV Immunization Adult Patients (1 - 1-dose 75+ series) 2040 Pneumococcal [...] 20 months Aged Out No longer eligible based on patient's age to complete this topic Varicella Vaccines Aged Out No longer eligible based on patient's age to complete this topic Goals Goal Patient Goal Type Associated Problems Recent Progress Patient-Stated? Author PT LTGs General No Yoav Freitas PT Note: Pt will ambulate with unilateral AD mod independent x200 ft Pt will complete FGA with unilateral AD Pt will be independent with HEP Procedures Procedure Name Priority Date/Time Associated Diagnosis Comments COMPREHENSIVE METABOLIC PANEL Routine 08/29/2024 12:00 AM EST Cellulitis, unspecified from Last 3 Months or Most Recently Relevant to Health Maintenance Results * (ABNORMAL) Comprehensive metabolic panel (08/29/2024 12:00 AM EST) Sodium 138 133 - 145 mmol/L LAB CHEMISTRY METHOD 08/30/2024 9:25 AM [facility] Potassium 4.8 3.5 - 5.5 [...] [facility] Comment:Calculation based on the Chronic [...] Song MD LAB BLOOD ORDERABLES Final Result [facility] [address] [place] [address], from Last 3 Months or Most Recently Relevant to Health Maintenance Insurance MEDICA[place] - [place] Advance Directives Documents on File Type Date Recorded Patient Respiratory Support Technician Expl anation Health Care Decision (hx) 01/22/2023 [...] (hx) 01/22/2023 AD PURDY DIRECTIVE Care Teams Mower Operator Relationship Specialty Start Date End Date Vicenta Nielsen FNP [address] [place] [phone] PCP - General 05/26/24
--- OUTSIDE RECORDS SUMMARY | 2025-05-28 18:20 | XMS_ITS | Encounter Summary ---
Author Organization [employer] Address [address] [place] [address] Care Team Providers Care Director Microbiology Name Role Phone Vicenta Nielsen REWRITE EDITOR Primary Care Provider Reason for Visit * Reason Onset Date Comments Nurse Triage 08/01/2024 Encounter Details Date Type Department Care Team ([facility] Contact Info) Description 08/01/2024 Telephone [facility] [address] [place], [place] [phone] Vicenta Nielsen NP [address] [place] [address] Nurse Triage Social History Tobacco Use Types [...] amputation. Pt offered to seek care at [facility]. Pt declines states will have [facility] call tomorrow with update on what area looks like based on their assessment. Reviewed home care advise, ER precautions and reasons to call back. Reviewed [facility] operating hours and that wait [...] 06/20/2025 11:30 AM EDT Office Visit [facility] [address] [place] [address] Vicenta Nielsen NP [address] [place] [address] documented as of this encounter Visit Diagnoses Not on filedocumented in this encounter Additional Health Concerns Assessment Noted Time PHQ-9 Depression Total Score: 7 07/25/20 9:24 AM EDT documented as of this encounter Care Teams Director Microbiology Relationship Specialty Start Date End Date Vicenta Nielsen NP [address] [place] [address] PCP - General Family Medicine 12/22/23 [employer] 04/29/24 abigail [email or web address] Vice President Risk ManagementBrine Tank Separator Operator 10/18/24 documented as of this encounter
--- OUTSIDE RECORDS SUMMARY | 2025-05-28 18:20 | XMS_ITS | Encounter Summary ---
Author Organization [employer] Address [address] [place] [address] Care Team Providers Care Soil Field Technician Name Role Phone Valery Berrios MD Primary Care Provider [phone] Vicenta Nielsen NP Primary Care Provider Encounter Details Date Type Department Care Team (Late Contact Info) Description 03/24/2023 Abstract [facility] [address] [place] [phone] Valery Berrios MD [address] [place] [phone] Social History Tobacco Use Types Packs/Day Years [...] Department Care Team (Late Contact Info) Description 06/20/2025 11:30 AM EDT Office Visit [facility] [address] [place] [address] Vicenta Nielsen NP [address] [place] [address] documented as of this encounter Visit Diagnoses Not on filedocumented in this encounter Additional Health Concerns Assessment Noted Time PHQ-9 Depression Total Score: 0 10/20/19 23 2:41 PM EST documented as of this encounter Care Teams Soil Field Technician Relationship Specialty Start Date End Date Valery Berrios MD [address] [place] [phone] PCP - General Internal Medicine 12/01/18 12/21/23 Vicenta Nielsen NP [address] [place] [address] PCP - General Family Medicine 12/22/23 [employer] 04/29/24 abigail [email or web address] Family CounselorTrailers And Motor Homes Salesperson 10/18/24 documented as of this encounter
--- OUTSIDE RECORDS SUMMARY | 2025-05-28 18:20 | XMS_ITS | Encounter Summary ---
Author Organization [employer] Address [address] [place] [address] [address] [place] [address] Care Team Providers Care Coffin Maker Name Role Phone Valery Berrios MD Primary Care Provider [phone] Vicenta Nielsen NP Primary Care Provider [phone] Encounter Details Date Type Department Care Team (Late Contact Info) Description 04/21/2023 Orders Only [facility] [address] [place] [address] Valery Berrios MD [address] [place] [address] Other iron deficiency anemia Social History Tobacco [...] Visit [facility] [address] [place] [address] Vicenta Nielsen NP [address] [place] [address] documented as of this encounter Visit Diagnoses Diagnosis Other iron deficiency anemia documented in this encounter Additional Health Concerns Assessment Noted Time PHQ-9 Depression Total Score: 0 10/20/19 23 2:41 PM EST documented as of this encounter Care Teams Coffin Maker Relationship Specialty Start Date End Date Valery Berrios MD [address] [place] [phone] PCP - General Internal Medicine 12/01/18 12/21/23 Vicenta Nielsen NP [address] [place] [address] PCP - General Family Medicine 12/22/23 [employer] 04/29/24 abigail [email or web address] Labor Contract AnalystWire Frame Maker 10/18/24 documented as of this encounter
== END 2025-05-28 17:44 | disposition home or self-care (01) ==
LOC: HO.HHCLNP 17:43
PROVIDERS: Visit Provider Nurse Practitioner Primary Care
DX: R30.0 Dysuria (principal)
CPT/HCPCS: 87086; 87147

== ENCOUNTER 2025-08-15 15:04 | Outpatient (REF) | payer MEDICAID, SELFPAY ==
--- OUTSIDE RECORDS SUMMARY | 2025-08-13 14:45 | XMS_ITS | Encounter Summary ---
Author Organization [employer] Address [address] [place] [address] [address] [place] [address] Care Team Providers Care Guest Service Manager Name Role Phone Vicenta Nielsen NP Primary Care Provider [phone] Reason for Referral * Consultation (Routine) - Pending Review Specialty Diagnoses / Procedures Referred By Gina kwan Referred To Contact Behavioral Health Diagnoses Anxiety disorder, unspecified type Procedures Referral to Psychiatry Vicenta Nielsen NP [address] [place] [address] Phone: tel: fax: Referral ID Status Reason Start Date Expiration Date Visits Requested Visits Authorized [id number] Pending Review Specialty Services Required 02/11/2027 1 1 * Consultation (Routine) - Closed Specialty Diagnoses / Procedures Referred By Gina kwan Referred To Contact Physical Therapy Diagnoses 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, sequela Vicenta Nielsen NP [address] [place] [address] Phone: tel: fax: [facility] [address], [place] Phone: tel: fax: Referral ID Status Reason Start Date Expiration Date V isits Requested Visits Authorized [id number] Closed Specialty Services Required 08/15/2025 08/15/2026 20 20 Reason for Visit * Reason Comments Annual Exam Encounter Details Date Type Department Care Team (Late st Contact Info) Description 08/13/2025 2:45 PM EST Office Visit [facility] [address] [place] [address] Vicenta Nielsen NP [address] [place] [address] History of hepatitis C (Primary Dx); Type II diabetes mellitus with complication (HCC); Health maintenance alteration; Panic; Long-term current use of methadone for opiate dependence (HCC); 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, sequela; Encounter for screening for malignant neoplasm of colon; Screening for colon cancer; Anemia due to stage 3 chronic kidney disease, unspecified whether stage 3a or 3b CKD (CMS/HCC) (HCC); History of thyroid nodule; Anxiety disorder, unspecified type; Encounter for vaccination; Encounter for immunization; Type 2 diabetes mellitus with hyperglycemia, with long-term current use of insulin (HCC); Food insecurity; Poor dentition Social History Tobacco Use Types Packs/Day Years [...] Sign Reading Time Taken Comments Blood Pressure 140/70 08/13/2025 3:00 PM EST Pulse 93 08/13/2025 3:00 PM EST Temperature 36.7 C (98.1 F) 08/13/2025 3:00 PM EST Respiratory Rate 20 08/13/2025 3:00 PM EST Oxygen Saturation 94% 08/13/2025 3:00 PM EST Inhaled Oxygen Concentration - - Weight 129 kg (285 lb) 08/13/2025 3:00 PM EST Height 175.3 cm (5' 9 ) 08/13/2025 3:00 PM EST Body Mass Index 42.09 08/13/2025 3:00 PM EST documented in this encounter Progress Notes * Vicenta Nielsen NP - 08/13/2025 2:45 PM EST Bam Wise is a 60 y.o. male Subjective: Bam Wise is a 60 y.o. male who presents to the office for a physical exam. Interim history: Bam Wise, 60-year-old male - Difficulty with current wheelchair, uncomfortable and inadequate for outdoor use, battery life poor, unable to elevate leg - History of anemia, last blood count showed low red blood cells, other values normal - Former smoker, quit two years ago, 30 pack-year history - Panic attacks, prescribed medication but rarely used, reports improvement in symptoms - Urinary issues, difficulty urinating, occasional incontinence, challenges with toilet accessibility due to physical limitations - Reports incomplete bowel emptying, increased gas after eating cucumbers with seeds - Obesity, recent weight loss from 290 lbs to approximately 260 lbs - Diabetes, blood sugars reported as well controlled, recent adjustment in insulin dosing - Hypertension, home blood pressure readings consistently elevated despite medication - History of thyroid nodules, prior negative biopsy, traumatic experience during procedure - Expresses interest in nutritional supplements due to difficulty with regular meals and dental issues - 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, more frequent than previously - No current tobacco use Problem List[1] Surgical History[2] Family History[3] Social History Living situation: with sister Employment/Education: Diet/exercise: in wheelchair Substance use: -alcohol sober -tobacco non smoker 2 years -opioids methadone therapy Sexual activity: Mental health: Patient Health Questionnaire-9 Score: 7 (04/11/2025 2:23 PM) Patient Health Questionnaire-2 Score: 2 (04/11/2025 2:23 PM) Thoughts that you would be better off or hurting yourself in some way: Not at all (04/11/2025 2:23 PM) Allergies[4] Review of Systems Constitutional: Negative for activity change. Respiratory: Negative for apnea, shortness of breath and wheezing. Cardiovascular: Positive for leg swelling. Negative for chest pain and palpitations. Gastrointestinal: Negative for abdominal distention and abdominal pain. Musculoskeletal: Negative for arthralgias and back pain. Vitals: 08/13/25 1500 BP: (!) 140/70 BP Location: Left arm Patient Position: Sitting BP Cuff Size: Large adult Pulse: 93 Resp: 20 Temp: 98.1 ??F (36.7 ??C) TempSrc: Oral SpO2: 94% Weight: 285 lb (129 kg) Height: 5' 9 (1.753 m) Physical Exam Vitals reviewed. Constitutional: Appearance: Normal appearance. He is obese. HENT: Head: Normocephalic. Nose: Nose normal. Eyes: Pupils: Pupils are equal, round, and reactive to light. Cardiovascular: Rate and Rhythm: Normal rate and regular rhythm. Heart sounds: Normal heart sounds. Pulmonary: Breath sounds: Normal breath sounds. Abdominal: Palpations: Abdomen is soft. Musculoskeletal: General: Swelling present. Normal range of motion. Cervical back: Neck supple. Left lower leg: Edema present. Comments: RLE amputation Neurological: Mental Status: He is alert. Psychiatric: Mood and Affect: Mood normal. 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 colon cancer screening Anemia due to stage 3 chronic kidney disease, unspecified whether stage 3a or 3b CKD (CMS/HCC) (HCC) Orders: CBC auto differential; Future History of thyroid nodule Anxiety disorder, unspecified type Orders: Referral to Psychiatry; Future Encounter for vaccination Orders: COVID-19 VACCINE [id number] (Comirnaty) 19 yrs + Encounter for immunization Orders: FLU VACCINE TRIVALENT [id number] (Fluarix) 19 yrs + Type 2 diabetes mellitus with hyperglycemia, with long-term current use of insulin (HCC) Orders: insulin glargine (Lantus SoloStar) 100 UNIT/ML pen; Inject 30 Units under the skin 2 times daily. Food insecurity Poor dentition Assessment & Plan History of hepatitis C: - Ordered blood work to check for hepatitis C status. Type II diabetes mellitus with complication (HCC): - Type II diabetes mellitus with hyperglycemia, managed with insulin therapy. Glycemic control discussed. - Continue current insulin regimen. Confirmed prescription of Lantus 30 units twice daily. Monitor blood glucose levels. Ordered routine labs including hemoglobin A1c. Health maintenance alteration: - Health maintenance needs addressed, including cancer screening, vaccinations, and routine laboratory monitoring. - Ordered routine laboratory tests. Recommended fecal sample for colon cancer screening. Administered influenza vaccine. Discussed COVID vaccine status. Panic: - Panic attacks reported, improved with as-needed medication. No acute intervention required. - Referred to psychiatry for further evaluation and management. Long-term current use of methadone for opiate dependence (HCC): - Methadone maintenance therapy ongoing. - Continue current methadone regimen. 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 Needs reassessment for appropriate mobility device. - Referred to physical therapy and [facility] for wheelchair assessment and evaluation of wheelchair needs. Encounter for screening for malignant neoplasm of colon: - Colon cancer screening discussed. - Recommended fecal sample for colon cancer screening as preferred by patient. Screening for colon cancer: - See above. Anemia due to stage 3 chronic kidney disease, unspecified whether stage 3a or 3b CKD (CMS/HCC) (HCC): - Anemia with chronic kidney disease discussed. Patient reports low red blood cell count. - Ordered blood work to assess anemia and kidney function. History of thyroid nodule: - Thyroid nodules previously evaluated. Patient declined further thyroid ultrasound or imaging at this time. - No further thyroid imaging or intervention at this time. Anxiety disorder, unspecified type: - Anxiety disorder discussed. Patient prefers to speak with a new psychiatrist prior to medication changes. - Referred to psychiatry for evaluation and management. Encounter for vaccination: - Vaccination status reviewed. - Administered influenza vaccine. COVID vaccine status confirmed. Encounter for immunization: - See above. - See above. Type 2 diabetes mellitus with hyperglycemia, with long-term current use of insulin (HCC): - See above. - See above. Food insecurity: - Food insecurity discussed. Patient requests nutritional supplements due to poor dentition and weight management goals. - Attempted to order Ensure nutritional supplement, pending insurance approval. Discussed Yared powder as previously used. Poor dentition: - Poor dentition contributing to nutritional challenges. - Attempted to order Ensure nutritional supplement, pending insurance approval. Hypertension: - Hypertension with suboptimal control on current regimen. - Continue olmesartan 40 mg and hydrochlorothiazide 25 mg. Initiated propranolol for additional blood pressure control and stress management. Monitor blood pressure response. Obesity: - Obesity discussed in context of weight management and nutritional supplementation. - Attempted to order meal replacement shakes (Ensure) for weight management, pending insurance approval. Mental health care coordination: - Mental health care needs discussed. Patient desires new psychiatric provider. - Referred to psychiatry for evaluation and ongoing mental health support. Wheelchair needs and mobility limitations: - Mobility limitations due to below-knee amputation and inadequate wheelchair. - Referred to physical therapy and [facility] for wheelchair assessment and evaluation of mobility needs. Prescription - Insulin glargine (Lantus) 30 units twice daily - Propranolol initiated at low dose, titrate slowly as tolerated; may lower heart rate, reduce afterload, assist with stress and headache control Appointments - Referral to physical therapy - Referral to [facility] for wheelchair assessment - Referral to psychiatry Routine Screening and Health Maintenance Optometry: Yes Dental: Yes Routine Cancer Screening Colon CA: Cologuard ordered today Lung CA: declines, quit smoking PSA: ordered Current Medications[5] Immunization History Administered Date(s) Administered Influenza Injectable Quadrivalant Preservative Free IIV4 MDCK 06/28/2023 Influenza injectable quadrivalent IIV4 with preservative 07/02/2016 Influenza injectable quadrivalent preservative free 06/09/2018, 07/04/2019, 07/20/2022 Influenza, seasonal, injectable, preservative free 05/26/2017, 08/13/2025 Pfizer Covid-19 Vaccine 12+ 02/11/2021, 03/04/2021, 10/20/2021, 08/13/2025 Pfizer Covid-19 Vaccine 12+ Bivalent 12/25/2022 Pneumococcal Conjugate PCV 20 06/28/2023 Tdap 07/04/2019 Zoster, Recombinant 04/20/2023, 06/28/2023 This note was drafted using Ambient (AI) technology. The patient/patient's guardian has been informed and has consented to the use of this technology: Yes Based on our discussion, I have outlined the following instructions for you: - Get your blood test done to check for hepatitis C. - Keep taking your insulin as you have been, with Lantus 30 units in the morning and 30 units at night. - Check your blood sugar regularly. - Get your routine blood tests done, including hemoglobin A1c. - Provide a fecal sample for colon cancer screening as discussed and preferred. - You have received your flu shot. - Your COVID vaccine status has been reviewed and confirmed. - Keep taking your methadone as you have been. - Your wheelchair and mobility needs will be reassessed to find the best device for you. - Get your blood test done to check your red blood cell count and kidney function. - No further tests or scans are needed for your thyroid at this time. - You will be seeing a psychiatrist to discuss your anxiety and mental health care. - Meal replacement shakes (Ensure) have been requested for you, and we are waiting for insurance approval. - You have discussed using Yared powder before. - Keep taking your blood pressure medicines: olmesartan 40 mg and hydrochlorothiazide 25 mg. - Start taking propranolol as prescribed to help with your blood pressure and stress. - Check your blood pressure regularly. Next appointment(s): - Referral to physical therapy - Referral to [facility] for wheelchair assessment - Referral to psychiatry Thank you again for your visit, and we look forward to supporting you in your journey to better health. [1] Patient Active Problem List Diagnosis Chronic type B viral hepatitis (CMS/HCC) (HCC) Asthma Benign hypertension Opioid dependence (HCC) Osteomyelitis (HCC) Sepsis (CMS/HCC) (HCC) Cellulitis UTI (urinary tract infection) Anemia COPD mixed type (CMS/HCC) (HCC) Dyspnea on exertion Right elbow pain Wound infection after surgery Amputation of right lower extremity below knee (HCC) Pelvic lymphadenopathy Hyperkalemia Acute blood loss anemia Dyslipidemia History of endocarditis History of opioid abuse (HCC) Osteomyelitis of right foot (CMS/HCC) (HCC) Type 2 diabetes mellitus with hyperglycemia, with long-term current use of insulin (HCC) Dysuria Hypertension Dietary counseling Exercise counseling Anxiety Panic attacks Essential (primary) hypertension Long-term current use of methadone for opiate dependence (HCC) Osteomyelitis of toe (CMS/HCC) (HCC) DM2 (diabetes mellitus, type 2) (HCC) Chronic antibiotic suppression Pain of right hip Left flank pain Peripheral vascular disease (CMS/HCC) Coronary artery disease involving [place] heart Type II diabetes mellitus with complication (HCC) Diabetes mellitus, type II, insulin dependent (HCC) Health maintenance alteration Panic History of hepatitis C Traumatic amputation of right leg below knee with complication (CMS/HCC) (HCC) Encounter for screening for malignant neoplasm of colon Screening for colon cancer History of thyroid nodule Anxiety disorder Encounter for vaccination Encounter for immunization Food insecurity Poor dentition [2] Past Surgical History: Procedure Laterality Date IR CVC NONTUNNELED 08/22/2024 IR CVC INSERT PERIPHERAL [3] No family history on file. [4] Allergies Allergen Reactions Bee Venom Anaphylaxis Iodinated Contrast Media Shortness of breath Bee Pollen Beeswax Unknown Per Johan Cortés Erythromycin Itching Iodine [5] Current Outpatient Medications Medication Sig Dispense Refill acetaminophen (Tylenol) 325 MG tablet TAKE 1 TABLET BY MOUTH EVERY 4 HOURS NEEDED FOR MILD PAIN 30 tablet 1 Alcohol Swabs (Alcohol Prep) 70 % pads APPLY TOPICALLY SIX TIMES DAILY DIRECTED 100 each 11 atorvastatin (Lipitor) 20 MG tablet Take 1 tablet (20 mg) by mouth at bedtime. 90 tablet 3 Blood Glucose Monitoring Suppl (FreeStyle [place] Lite) w/Device kit TEST BLOOD SUGAR FOUR TIMES DAILY Blood Pressure Monitoring (Blood Pressure Cuff) mis Use daily as prescribed 1 each 0 Continuous Blood Gluc Sensor (FreeStyle [place] 2 Sensor) misc USE DIRECTED TO TEST BLOOD SUGAR. CHANGE EVERY 14 DAYS . 2 each 11 Continuous Glucose Winder Operator (FreeStyle Oumar 3 [place]) device 1 each Once per day. Use as directed for CGM 1 each 0 Continuous Glucose Sensor (FreeStyle Oumar 3 Plus Sensor) misc 1 each every 15 days. Apply 1 every 15 days as directed for CGM 2 each 11 cyclobenzaprine (Flexeril) 10 MG tablet Take 1 tablet (10 mg) by mouth if needed in the morning andat bedtime for muscle spasms for up to 20 days. 40 tablet 0 Diclofenac Sodium 1 % gel To apply to the affected areas 3 times a day 100 g 1 FREESTYLE LITE test strip USE DIRECTED TO TEST BLOOD SUGAR FOUR TIMES DAILY 100 strip 11 glucose blood (FreeStyle Precision Keven Test) test strip Use to test blood sugar 4 times daily in case of CGM failure or extremes of BG 100 each 11 insulin glargine (Lantus SoloStar) 100 UNIT/ML pen Inject 30 Units under the skin 2 times daily. 15mL 3 insulin lispro (HumaLOG) 100 UNIT/ML injection 18-30 units subcutaneous with meals and snacks 15 mL11 insulin pen needle (Novofine Pen Needle) 32G x 6 mm [facility] USE DIRECTED 5 TO 6 TIMES DAILY DIRECTED 200 each 5 ipratropium-albuterol (Combivent Respimat) 20-100 MCG/ACT inhaler Inhale 1 puff if needed in the morning, at noon, in the evening, and at bedtime for wheezing. 4 g 2 Lactobacillus Acid-Pectin (Acidophilus/[place] Pectin) tablet TAKE 1 TABLET BY MOUTH THREE TIMES DAILY 90 tablet 2 Lactobacillus Probiotic tablet Take 1 tablet by mouth 3 times daily. 90 tablet 2 LORazepam (Ativan) 0.5 MG tablet Take 1 tablet (0.5 mg) by mouth if needed each day for anxiety (3)for up to 3 days. 3 tablet 0 METHADONE HCL PO Take 115 mg by mouth in the morning. Multiple Vitamin (Multivitamin) tablet Take 1 tablet by mouth in the morning. Nutritional Supplements (Ensure) Take 237 mL by mouth Once per day. 237 mL 12 olmesartan-hydroCHLOROthiazide (BENIcar HCT) 40-25 MG tablet TAKE 1 TABLET BY MOUTH EVERY DAY 90 tablet 1 polyethylene glycol, PEG, 3350 (Glycolax) 17 GM/SCOOP powder TAKE 17 GM MIXED IN 8 OUNCES OF WATER,COFFEE OR TEA ONCE DAILY 510 g 1 propranolol LA (Inderal LA) 60 MG 24 hr capsule Take 1 capsule (60 mg) by mouth Once per day. Do not crush, chew, or split. 30 capsule 2 TRUEplus Lancets 33G misc USE DIRECTED TO TEST BLOOD SUGAR FOUR TIMES DAILY 100 each 5 No current facility-administered medications for this visit. documented in this encounter Miscellaneous Notes * Assessment & Plan Note - Vicenta Nielsen NP - 08/13/2025 2:45 PM ESTAssociated Problem(s): History of hepatitis C Orders: Hepatitis C Antibody with Reflex to HCV, RNA, Quantitative, Real-Time PCR; Future * Assessment & Plan Note - Vicenta Nielsen NP - 08/13/2025 2:45 PM ESTAssociated Problem(s): Type II diabetes mellitus with complication (HCC) Orders: POCT Glucose POCT Hgb A1c HIV-1/2 Antigen and Antibodies, Fourth Generation, with Reflexes; Future Comprehensive Metabolic Panel; Future Lipid Panel, Standard; Future Hemoglobin A1c; Future * Assessment & Plan Note - Vicenta Nielsen NP - 08/13/2025 2:45 PM ESTAssociated Problem(s): Health maintenance alteration Orders: PSA, Screen; Future * Assessment & Plan Note - Vicenta Nielsen NP - 08/13/2025 2:45 PM ESTAssociated Problem(s): Panic * Assessment & Plan Note - Vicenta Nielsen NP - 08/13/2025 2:45 PM ESTAssociated Problem(s): Long-term current use of methadone for opiate dependence (HCC) * Assessment & Plan Note - Vicenta Nielsen NP - 08/13/2025 2:45 PM ESTAssociated Problem(s): Traumatic amputation of right leg below knee with complication (CMS/HCC) (HCC) Orders: Referral to Physical Therapy; Future * Assessment & Plan Note - Vicenta Nielsen NP - 08/13/2025 2:45 PM ESTAssociated Problem(s): Encounter for screening for malignant neoplasm of colon * Assessment & Plan Note - Vicenta Nielsen NP - 08/13/2025 2:45 PM ESTAssociated Problem(s): Screening for colon cancer Orders: Cologuard?? colon cancer screening * Assessment & Plan Note - Vicenta Nielsen NP - 08/13/2025 2:45 PM ESTAssociated Problem(s): Anemia Orders: CBC auto differential; Future * Assessment & Plan Note - Vicenta Nielsen NP - 08/13/2025 2:45 PM ESTAssociated Problem(s): History of thyroid nodule * Assessment & Plan Note - Vicenta Nielsen NP - 08/13/2025 2:45 PM ESTAssociated Problem(s): Anxiety disorder Orders: Referral to Psychiatry; Future * Assessment & Plan Note - Vicenta Nielsen NP - 08/13/2025 2:45 PM ESTAssociated Problem(s): Encounter for vaccination Orders: COVID-19 VACCINE [id number] (Comirnaty) 19 yrs + * Assessment & Plan Note - Vicenta Nielsen NP - 08/13/2025 2:45 PM ESTAssociated Problem(s): Encounter for immunization Orders: FLU VACCINE TRIVALENT [id number] (Fluarix) 19 yrs + * Assessment & Plan Note - Vicenta Nielsen NP - 08/13/2025 2:45 PM ESTAssociated Problem(s): Type 2 diabetes mellitus with hyperglycemia, with long-term current use of insulin (HCC) Orders: insulin glargine (Lantus SoloStar) 100 UNIT/ML pen; Inject 30 Units under the skin 2 times daily. * Assessment & Plan Note - Vicenta Nielsen NP - 08/13/2025 2:45 PM ESTAssociated Problem(s): Food insecurity * Assessment & Plan Note - Vicenta Nielsen NP - 08/13/2025 2:45 PM ESTAssociated Problem(s): Poor dentition documented in this encounter Plan of Treatment Scheduled Orders Name Type Priority Associated Diagnoses Orde r Schedule Hepatitis C Antibody with Reflex to HCV, RNA, Quantitative, Real-Time PCR Lab Routine History of hepatitis C Expected: 08/13/2025, Expires: 08/13/2026 HIV-1/2 Antigen and Antibodies, Fourth Generation, with Reflexes Lab Routine Type II diabetes mellitus with complication (HCC) Expected: 08/13/2025 (Approximate), Expires: 08/13/2026 [facility] colon cancer screening Lab Routine Screening for colon cancer Ordered: 08/13/2025 Scheduled Referrals Name Type Priority Associated Diagnoses Orde r Schedule Referral to Physical Therapy Outpatient Referral Routine 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, sequela Expected: 08/13/2025 (Approximate), Expires: 08/13/2026 documented as of this encounter Procedures Procedure Name Priority Date/Time Associated Diagnosis Comments PSA, SCREEN Routine 08/15/2025 3:16 PM EST Health maintenance alteration CBC WITH AUTO DIFFERENTIAL Routine 08/15/2025 3:16 PM EST Anemia due to stage 3 chronic kidney disease, unspecified whether stage 3a or 3b CKD (CMS/HCC) (HCC) HEMOGLOBIN A1C Routine 08/15/2025 3:16 PM EST Type II diabetes mellitus with complication (HCC) LIPID PANEL, STANDARD Routine 08/15/2025 3:16 PM EST Type II diabetes mellitus with complication (HCC) COMPREHENSIVE METABOLIC PANEL Routine 08/15/2025 3:16 PM EST Type II diabetes mellitus with complication (HCC) POCT GLYCATED HEMOGLOBIN, TOTAL Routine 08/13/2025 3:03 PM EST Type II diabetes mellitus with complication (HCC) POCT GLUCOSE Routine 08/13/2025 3:02 PM EST Type II diabetes mellitus with complication (HCC) documented in this encounter Results * PSA, Screen (08/15/2025 3:16 PM EST) PSA, Total 0.12 <0.05 - 4.0 ng/mL [facility] Comment:PSA methodology: Ana Moss i ChemiluminescentMicroparticle Immunoassay (CMIA) Blood Venous blood specimen / Unknown 08/15/2025 3:16 PM EST 08/15/2025 3:16 PM EST Vicenta Graef [employer] LAB BLOOD ORDERABLES Final Resul t [facility] [address], [place] [id number] [phone] * (ABNORMAL) CBC auto differential (08/15/2025 3:16 PM EST) White Blood Count 8.8 4.8 - 10.8 X10*3/uL [facility] Red Blood Count 3.70(L) 4.60 - 5.80 X10*6/uL [facility] Hemoglobin 11.8(L) 14.0 - 18.0 g/dl [facility] Hematocrit 35.1(L) 42.0 - 52.0 % [facility] Mean Corpuscular Volume 94.9 80.0 - 98.0 fL [facility] Mean Corpuscular Hemoglobin 31.9 27.0 - 33.0 pg [facility] Mean Corpuscular HGB Conc 33.6 31.0 - 36.0 g/dl [facility] Red Cell Distribution Width 13.4 11.0 - 16.0 % [facility] Platelet Count 194 160 - 400 X10*3/uL [facility] Mean Platelet Volume 10.1 9.4 - 12.4 fL [facility] Neutrophils Percent Auto 77.4(H) 45 - 73 % [facility] Imm Gran Pct Auto 0.6(H) 0.0 - 0.4 % [facility] Lymphocytes Percent Auto 10.7(L) 20 - 40 % [facility] Monocytes Percent Auto 8.3 2 - 11 % [facility] Eosinophils Percent Auto 2.3 0 - 4 % [facility] Basophils Percent Auto 0.7 0 - 2 % [facility] NRBC Pct Auto 0.0 0.0 - 0.2 /100WBC [facility] Neutrophils Absolute Auto 6.8 2.0 - 8.3 x10*3/uL [facility] Imm Gran Abs Auto 0.05(H) 0.00 - 0.03 X10*3/uL [facility] Lymphocytes Absolute Auto 0.9(L) 1.2 - 4.9 X10*3/uL [facility] Monocytes Absolute Auto 0.7 0.1 - 1.2 X10*3/uL [facility] Eosinophils Absolute Auto 0.2 0.0 - 0.4 X10*3/uL [facility] Basophils Absolute Auto 0.1 0.0 - 0.2 X10*3/uL [facility] NRBC Abs Auto 0.000 0.0 - 0.012 X10*3/uL [facility] Blood Venous blood specimen / Unknown 08/15/2025 3:16 PM EST 08/15/2025 3:16 PM EST us Vicenta Nielsen TRANSONIC ENGINEER LAB BLOOD ORDERABLES Final Resul t Performing Organization Address [facility] de Phone Number [facility] [address] [place] [phone] * (ABNORMAL) Hemoglobin A1c (08/15/2025 3:16 PM EST) Hemoglobin A1c 7.1(H) <6.0 % [facility] Comment:Hemoglobin A1C Refer ence Range Adults: 4.8 - 6.0 % Non diabetic: < 6.0 % Goal: < 7.0 %Additional Action Suggested: > 8.0 %Note: Hemoglobin A1c results are invalid for patients with abnormal amounts of HbF. Blood transfusions may impact the HbA1c concentration in the patient sample. Estimated Average Glucose 157 mg/dL [facility] Comment:eAG = Estimated ave rage glucose which is %A1C expressed asaverage glucose, using the formula of the P2B-DzlgzesLukfrpu Glucose study (ADAG), Diabetes Care, Vol.31,#8,May. 2007 Blood Venous blood specimen / Unknown 08/15/2025 3:16 PM EST 08/15/2025 3:16 PM EST Vicenta Nielsen TRANSONIC ENGINEER LAB BLOOD ORDERABLES Final Resul t Performing Organization Address [facility]/ZIP Co de Phone Number [facility] [address] [place] [address] [phone] * (ABNORMAL) Lipid Panel, Standard (08/15/2025 3:16 PM EST) Triglycerides 307(H) <150 mg/dL [facility] Comment:Desirable Triglyceri de: less than 150 mg/dLBorderline High Triglyceride 150-199 mg/dLHigh Triglyceride: 200-499 mg/dLVery High Triglyceride: greater than or equal to 5OO mg/dL Cholesterol 154 <200 mg/dL [facility] Comment:Desirable Cholestero l: less than 200 mg/dLBorderline High Cholesterol: 200-239 mg/dLHigh Cholesterol: greater than 239 mg/dL LDL Cholesterol Calculated 61 <100 mg/dL [facility] Comment:Desirable LDL: less than 100 mg/dLNear Optimal/Above Optimal LDL: 110- 129 mg/dLBorderline High LDL: 130-159 mg/dLHigh LDL: 160-189 mg/dLVery High LDL: greater than or equal to 190 mg/dL HDL Cholesterol 32(L) >40 mg/dL [facility] Comment:Desirable HDL: great er than 40 mg/dL Note: This HDL assay may give artificially low results in patients with liver disease. Blood Venous blood specimen / Unknown 08/15/2025 3:16 PM EST 08/15/2025 3:16 PM EST us Vicenta Nielsen NP LAB BLOOD ORDERABLES Final Resul t [facility] [address] [place] [address] [phone] * (ABNORMAL) Comprehensive Metabolic Panel (08/15/2025 3:16 PM EST) Sodium 137 135 - 145 mmol/L [facility] Potassium 4.6 3.3 - 5.1 mmol/L [facility] Chloride 100 96 - 108 mmol/L [facility] Carbon Dioxide 30(H) 22 - 29 mmol/L [facility] Anion Gap 12 12 - 20 [facility] Urea Nitrogen (BUN) 16 9 - 16 mg/dL [facility] Creatinine, Serum 0.81 0.5 - 1.4 mg/dL [facility] Estimated Glomerular Filt Rate >60 [facility] Comment:Chronic Kidney Disea se: Estimated GFR < 60 mL/min/[id number] Kidney Disease: Estimated GFR < 15 mL/min/1.73m2 Glucose 150(H) 60 - 115 mg/dL [facility] Calcium 8.8 8.4 - 10.2 mg/dL [facility] Bilirubin, Total 0.4 0.0 - 1.0 mg/dL [facility] Aspartate Amino Transferase 38(H) 5 - 37 U/L [facility] Alanine Aminotransferase 31 0 - 40 U/L [facility] Total Protein 7.6 6.5 - 8.0 g/dL [facility] Albumin Level 4.2 3.5 - 5.0 g/dL [facility] Alkaline Phosphatase 110 39 - 117 U/L [facility] Blood Venous blood specimen / Unknown 08/15/2025 3:16 PM EST 08/15/2025 3:16 PM EST Vicenta Nielsen TRANSONIC ENGINEER LAB BLOOD ORDERABLES Final Resul t [facility] [address] [place] [address] [phone] * (ABNORMAL) POCT Hgb A1c (08/13/2025 3:03 PM EST) Hemoglobin A1C 6.9(A) 4.0 - 5.7 % QC Media Lot # [id number] Lot# Expiration Date [id number] Blood 08/13/2025 3:03 PM EST Vicenta Nielsen TRANSONIC ENGINEER POINT OF CARE TEST ENTER/EDIT OR DERABLES Final Result * POCT Glucose (08/13/2025 3:02 PM EST) Glucose Blood, POC 173 60 - 200 mg/dL [employer] Lot # [id number] Lot# Expiration Date [id number] Blood Capillary blood specimen / Unknown 08/13/2025 3:02 PM EST Vicenta Nielsen NP POINT OF CARE TEST ENTER/EDIT OR DERABLES Final Result documented in this encounter Visit Diagnoses Diagnosis History of hepatitis C- Primary Personal history of other infectious and parasitic disease Type II diabetes mellitus with complication (HCC) Type II or unspecified type diabetes mellitus with unspecified complication, not stated as uncontrolled Health maintenance alteration Panic Panic disorder without agoraphobia Long-term current use of methadone for opiate dependence (HCC) 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, sequela Encounter for screening for malignant neoplasm of colon Screening for colon cancer Special screening for malignant neoplasms, colon Anemia due to stage 3 chronic kidney disease, unspecified whether stage 3a or 3b CKD (CMS/HCC) (HCC) History of thyroid nodule Anxiety disorder, unspecified type Encounter for vaccination Encounter for immunization Type 2 diabetes mellitus with hyperglycemia, with long-term current use of insulin (HCC) Food insecurity Poor dentition documented in this encounter Additional Health Concerns Assessment Noted Time PHQ-9 Depression Total Score: 7 04/11/20 25 2:23 PM EDT documented as of this encounter Care Teams Guest Service Manager Relationship Specialty Start Date End Date Vicenta Nielsen NP [address] [place] [address] PCP - General Family Medicine 12/22/23 [employer] 04/29/24 abigail mcneill Janitorial TechSteamer Tender 10/18/24 documented as of this encounter
[2025-08-15 15:18] LABS: MANUAL DIFF FLAG NO
[2025-08-15 15:36] LABS: Hematocrit 35.1 % (42.0-52.0); Hemoglobin 11.8 g/dl (14.0-18.0); Imm Gran Abs Auto 0.05 X10*3/uL (0.00-0.03); Imm Gran Pct Auto 0.6 % (0.0-0.4); Lymphocytes Absolute Auto 0.9 X10*3/uL (1.2-4.9); Mean Corpuscular HGB Conc 33.6 g/dl (31.0-36.0); Mean Corpuscular Hemoglobin 31.9 pg (27.0-33.0); Mean Corpuscular Volume 94.9 fL (80.0-98.0); NRBC Abs Auto 0.000 X10*3/uL (0.0-0.012); NRBC Pct Auto 0.0 /100WBC (0.0-0.2); Platelet Count 194 X10*3/uL (160-400); Red Blood Count 3.70 X10*6/uL (4.60-5.80); White Blood Count 8.8 X10*3/uL (4.8-10.8)
[2025-08-15 15:59] LABS: Alanine Aminotransferase 31 U/L (0-40); Albumin Level 4.2 g/dL (3.5-5.0); Alkaline Phosphatase 110 U/L (39-117); Anion Gap 12 (12-20); Aspartate Amino Transferase 38 U/L (5-37); Blood Urea Nitrogen 16 mg/dL (9-16); Calcium 8.8 mg/dL (8.4-10.2); Carbon Dioxide 30 mmol/L (22-29); Chloride 100 mmol/L (96-108); Cholesterol 154 mg/dL (<200); Estimated Glomerular Filt Rate > 60; HDL Cholesterol 32 mg/dL (>40); Potassium 4.6 mmol/L (3.3-5.1); Sodium 137 mmol/L (135-145); Total Protein 7.6 g/dL (6.5-8.0); Triglycerides 307 mg/dL (<150)
--- OUTSIDE RECORDS SUMMARY | 2025-08-15 18:23 | XMS_ITS | Encounter Summary ---
Author Organization [employer] Address [address] [facility] 7 [place] [address] Care Team Providers Care Adult Basic Education Manager Name Role Phone Valery Berrios MD Primary Care Provider [phone] Vicenta Nielsen NP Primary Care Provider [phone] Reason for Visit * Reason Onset Date Comments Transfer Patient 09/13/2023 Encounter Details Date Type Department Care Team (Late st Contact Info) Description 09/13/2023 Telephone [facility] MEDICINE [address] [place] [address] Valery Berrios MD [address] [place] [address] Transfer Patient Social History Tobacco Use Types [...] status on TP Please contact pt @ [phone] * Telephone Encounter - Jone Kaufman - 09/13/2023 1:58 PM EST Tc from patient requesting to be transferred to the [facility] due to patient residing at [place] documented in this encounter Plan of Treatment Not on file documented as of this encounter Visit Diagnoses Not on filedocumented in this encounter Additional Health Concerns Assessment Noted Time PHQ-9 Depression Total Score: 0 10/20/19 23 2:41 PM EST documented as of this encounter Care Teams Adult Basic Education Manager Relationship Specialty Start Date End Date Valery Berrios MD [address] [place] [address] PCP - General Internal Medicine 12/01/18 12/21/23 Vicenta Nielsen NP [address] [place] [address] PCP - General Family Medicine 12/22/23 [employer] 04/29/24 abigail mcneill Director Of Product DevelopmentAircraft Servicer 10/18/24 documented as of this encounter
--- OUTSIDE RECORDS SUMMARY | 2025-08-15 18:23 | XMS_ITS | Encounter Summary ---
Author Organization [email or web address] Address [address] [place] [address] 7 [place] [address] Care Team Providers Care Canary Raiser Name Role Phone Valery Berrios MD Primary Care Provider [phone] Vicenta Nielsen NP Primary Care Provider [phone] Encounter Details Date Type Department Care Team ([facility] st Contact Info) Description 11/18/2023 Orders Only [facility] CHC MED & PEDS [address] [place] [address] Valery Berrios MD [address] [place] [address] Benign hypertension (Primary Dx) Social History Tobacco [...] Blood Count 7.8 4.8 - 10.8 X10*3/uL [facility] Red Blood Count 3.54(L) 4.60 - 5.80 X10*6/uL [facility] Hemoglobin 9.5(L) 14.0 - 18.0 g/dl [facility] Hematocrit 29.7(L) 42.0 - 52.0 % [facility] Mean Corpuscular Volume 83.9 80.0 - 98.0 fL [facility] Mean Corpuscular Hemoglobin 26.8(L) 27.0 - 33.0 pg [facility] Mean Corpuscular HGB Conc 32.0 31.0 - 36.0 g/dl [facility] Red Cell Distribution Width 14.0 11.0 - 16.0 % [facility] Platelet Count 236 160 - 400 X10*3/uL [facility] Mean Platelet Volume 11.3 9.4 - 12.4 fL [facility] Neutrophils Percent Auto 75.3(H) 45 - 73 % [facility] Imm Gran Pct Auto 0.4 0.0 - 0.4 % [facility] Lymphocytes Percent Auto 12.9(L) 20 - 40 % [facility] Monocytes Percent Auto 9.7 2 - 11 % [facility] Eosinophils Percent Auto 1.2 0 - 4 % [facility] Basophils Percent Auto 0.5 0 - 2 % [facility] NRBC Pct Auto 0.0 0.0 - 0.2 /100WBC [facility] Neutrophils Absolute Auto 5.9 2.0 - 8.3 x10*3/uL [facility] Imm Gran Abs Auto 0.03 0.00 - 0.03 X10*3/uL [facility] Lymphocytes Absolute Auto 1.0(L) 1.2 - 4.9 X10*3/uL [facility] Monocytes Absolute Auto 0.8 0.1 - 1.2 X10*3/uL [facility] Eosinophils Absolute Auto 0.1 0.0 - 0.4 X10*3/uL [facility] Basophils Absolute Auto 0.0 0.0 - 0.2 X10*3/uL [facility] NRBC Abs Auto 0.000 0.0 - 0.012 X10*3/uL [facility] Blood Venous blood specimen / Unknown 05/23/2024 11:38 AM EDT 05/23/2024 1:31 PM EDT us Valery Berrios MD LAB BLOOD ORDERABLES Final Result [facility] [address] [place] [address] [phone] documented in this encounter Visit Diagnoses Diagnosis Benign hypertension- Primary Essential hypertension, benign documented in this encounter Additional Health Concerns Assessment Noted Time PHQ-9 Depression Total Score: 0 10/20/19 23 2:41 PM EST documented as of this encounter Care Teams Canary Raiser Relationship Specialty Start Date End Date Valery Berrios MD [address] [place] [address] PCP - General Internal Medicine 12/01/18 12/21/23 Vicenta Nielsen NP [address] [place] [address] PCP - General Family Medicine 12/22/23 [employer] 04/29/24 abigail [email or web address] Tableau DeveloperDestination Imagination Coordinator 10/18/24 documented as of this encounter
--- OUTSIDE RECORDS SUMMARY | 2025-08-15 18:23 | XMS_ITS | Encounter Summary ---
Author Organization [employer] Address [address] [place] [address] 7 [place] [address] Care Team Providers Care Community Services Coordinator Name Role Phone Valery Berrios MD Primary Care Provider [phone] Vicenta Nielsen NP Primary Care Provider [phone] Reason for Visit * Reason Onset Date Comments PT1 07/16/2023 Encounter Details Date Type Department Care Team ([facility] st Contact Info) Description 07/16/[address] [facility] CHC MED & PEDS [address] [place] [address] Valery Berrios MD [address] [place] [address] PT1 Social History Tobacco Use Types Packs/Day [...] Date: n/a Time: n/a Visits: n/a Address: [address] [place] [address] Facility: [facility] Chair: n/a Biomedical Engineering Internship Needed: no documented in this encounter Plan of Treatment Not on file documented as of this encounter Visit Diagnoses Not on filedocumented in this encounter Additional Health Concerns Assessment Noted Time PHQ-9 Depression Total Score: 0 10/20/19 23 2:41 PM EST documented as of this encounter Care Teams Community Services Coordinator Relationship Specialty Start Date End Date Valery Berrios MD [address] [place] [address] PCP - General Internal Medicine 12/01/18 12/21/23 Vicenta Nielsen NP [address] [place] [address] PCP - General Family Medicine 12/22/23 [facility] itravel 04/29/24 abigail mcneill Spanish TranslatorSuperintendent Cemetery 10/18/24 documented as of this encounter
--- OUTSIDE RECORDS SUMMARY | 2025-08-15 18:23 | XMS_ITS | Encounter Summary ---
Author Organization [employer] Address [address] [place] [address] 7 [place] [address] Care Team Providers Care Communications Electrician Supervisor Name Role Phone Valery Berrios MD Primary Care Provider [phone] Vicenta Nielsen NP Primary Care Provider [phone] Reason for Visit * Reason Onset Date Comments PT1 07/21/2023 Encounter Details Date Type Department Care Team ([facility] st Contact Info) Description 07/21/2023 Telephone [facility] CHC MED & PEDS [address] [place] [address] Valery Berrios MD [address] [place] [address] PT1 Social History Tobacco Use Types Packs/Day Years Used Date Smoking Tobacco: Every Day Cigarettes Smokeless Tobacco: Never Depression Answer Date Recorded Patient Health Questionnaire-9 Score 0 10/20/2022 Housing Stability Answer Date Recorded What is your housing situation today? I do not have housing (Staying with others, in a hotel, in a longterm, living outside on the street, on a [...] Muñoz - 07/21/2023 2:49 PM EDT Tc from [employer] with ICP requesting PT1 for pt Date: 08/11 Time: 3:45 pm Visits: n/a Address: [address] [place] [address] Facility: [facility], Dr. Kimmy Vuong Wheel Chair: n/a Inside Sales Coordinator Needed: no Pick-up location confirmed: [address] [place] [address] documented in this encounter Plan of Treatment Not on file documented as of this encounter Visit Diagnoses Not on filedocumented in this encounter Additional Health Concerns Assessment Noted Time PHQ-9 Depression Total Score: 0 10/20/19 23 2:41 PM EST documented as of this encounter Care Teams Communications Electrician Supervisor Relationship Specialty Start Date End Date Valery Berrios MD [address] [place] [address] PCP - General Internal Medicine 12/01/18 12/21/23 Vicenta Nielsen NP [address] [place] [address] PCP - General Family Medicine 12/22/23 [facility] [employer] 04/29/24 abigail [email or web address] Machine Operator Slitter TechnicianLog Scaler 10/18/24 documented as of this encounter
--- OUTSIDE RECORDS SUMMARY | 2025-08-15 18:24 | XMS_ITS | Encounter Summary ---
Author Organization [employer] Address [address] [facility] [address] 7[address] [place] [address] Care Team Providers Care Forest Fire Warden Name Role Phone Vicenta Nielsen NP Primary Care Provider [phone] Reason for Visit * Reason Onset Date Comments chart prep 08/11/2025 Encounter Details Date Type Department Care Team ([facility] st Contact Info) Description 08/11/2025 Telephone [facility] MEDICINE [address] [place] [address] Estrella Calderon MA chart prep Social History Tobacco Use Types Packs/Day Years [...] encounter Miscellaneous Notes * Telephone Encounter - Estrella Calderon MA - 08/11/2025 11:50 AM EST Chart Prep Labs: done Images: done Referrals: PENDING APPT, NOTES FAXED TO OFFICE ON 05/28/2025.[facility] Urology [address] [place] [address] [address] Tel. [phone] Fax. [phone] Vaccines due: Covid, Flu, Hep B, Hep A, and RSV Screenings: colonoscopy, eye exam, and foot exam Overdue care gaps: A1c and Glucose documented in this encounter Plan of Treatment Not on file documented as of this encounter Visit Diagnoses Not on filedocumented in this encounter Additional Health Concerns Assessment Noted Time PHQ-9 Depression Total Score: 7 04/11/20 2:23 PM EDT documented as of this encounter Care Teams Forest Fire Warden Relationship Specialty Start Date End Date Vicenta Nielsen NP [address] [place] [address] PCP - General Family Medicine 12/22/23 [employer] 04/29/24 abigail mcneill Pest Control SupervisorUrogynaecologist 10/18/24 documented as of this encounter
--- OUTSIDE RECORDS SUMMARY | 2025-08-15 18:24 | XMS_ITS | Encounter Summary ---
Author Organization [employer] Address [address] [facility] [address] 7[address] [place] [address] Care Team Providers Care Clinical Data Analyst Name Role Phone Vicenta Nielsen NP Primary Care Provider [phone] Reason for Visit * Reason Onset Date Comments FYI 10/12/2024 Encounter Details Date Type Department Care Team ([facility] Contact Info) Description 10/12/2024 Telephone [facility] MEDICINE [address] [place], [place] [phone] Vicenta Nielsen NP [address] [place] [address] FYI Social History Tobacco Use Types Packs/Day [...] as of this encounter Care Teams Clinical Data Analyst Relationship Specialty Start Date End Date Vicenta Nielsen NP [address] [place] [address] PCP - General Family Medicine 12/22/23 [employer] [facility] 04/29/24 abigail mcneill First MateMotor Checker 10/18/24 documented as of this encounter
--- OUTSIDE RECORDS SUMMARY | 2025-08-15 18:24 | XMS_ITS | Encounter Summary ---
Author Organization [employer] Address [address] [facility] [address] [place] [address] Care Team Providers Care Gas Charger Name Role Phone Vicenta Nielsen NP Primary Care Provider [phone] Reason for Visit * Reason Comments Med Refill Encounter Details Date Type Department Care Team ([facility] Contact Info) Description 08/13/[address] [facility] MEDICINE [address] [place], [place] [phone] Vicenta Nielsen NP [address] [place] [address] Type 2 diabetes mellitus with hyperglycemia, with long-term current use of insulin (HCC) Social History Tobacco Use Types Packs/Day Years [...] with long-term current use of insulin (HCC) documented in this encounter Additional Health Concerns Assessment Noted Time PHQ-9 Depression Total Score: 7 04/11/20 25 2:23 PM EDT documented as of this encounter Care Teams Gas Charger Relationship Specialty Start Date End Date Vicenta Nielsen NP [address] [place] [address] PCP - General Family Medicine 12/22/23 [employer] 04/29/24 abigail mcneill Preschool Lead TeacherPhotogrammetric Compilation Specialist 10/18/24 documented as of this encounter
--- OUTSIDE RECORDS SUMMARY | 2025-08-15 18:24 | XMS_ITS | Encounter Summary ---
Author Organization [facility] Address [address] [place] [address] Care Team Providers Care Professional Application Designer Name Role Phone Vicenta Nielsen Primary Care Provider [phone] Encounter Details Date Type Department Care Team Description 05/30/2024 Social Work [facility] Oncology Services [address] [place] [address] Claude Resendiz, [facility] Social History Tobacco Use Types Packs/Day Years [...] on filedocumented in this encounter Care Teams Professional Application Designer Relationship Specialty Start Date End Date Vicenta Nielsen [address] [place] [phone] PCP - General Family Medicine 05/26/24 documented as of this encounter
--- OUTSIDE RECORDS SUMMARY | 2025-08-15 18:24 | XMS_ITS | Encounter Summary ---
Author Organization [employer] Address [address] [facility] [address] 7[address] [place] [address] Care Team Providers Care Byproducts Operator Name Role Phone Vicenta Nielsen NP Primary Care Provider [phone] Reason for Visit * Reason Onset Date Comments Call Back Request 03/10/2024 Encounter Details Date Type Department Care Team ([facility] st Contact Info) Description 03/10/2024 Telephone [facility] MEDICINE [address] [place], [place] [phone] Vicenta Nielsen NP [address] [place] [address] Call Back Request Social History Tobacco Use [...] scanned in chart. Please contact pt at [phone] documented in this encounter Plan of Treatment Not on file documented as of this encounter Visit Diagnoses Not on filedocumented in this encounter Additional Health Concerns Assessment Noted Time PHQ-9 Depression Total Score: 5 01/04/20 10:57 AM EDT documented as of this encounter Care Teams Byproducts Operator Relationship Specialty Start Date End Date Vicenta Nielsen NP [address] [place] [address] PCP - General Family Medicine 12/22/23 [employer] 04/29/24 abigail mcneill Learning StrategistLineman 10/18/24 documented as of this encounter
--- OUTSIDE RECORDS SUMMARY | 2025-08-15 18:24 | XMS_ITS | Encounter Summary ---
Author Organization [employer] Address [address] [facility] [address] [place] [address] Care Team Providers Care Stock Control Supervisor Name Role Phone Valery Berrios MD Primary Care Provider [phone] Vicenta Nielsen NP Primary Care Provider [phone] Encounter Details Date Type Department Care Team (Late st Contact Info) Description 03/24/2023 Abstract [facility] MEDICINE [address] [place] [address] Valery Berrios MD [address] [place], [place] [phone] Social History Tobacco Use Types Packs/Day Years [...] documented as of this encounter Care Teams Stock Control Supervisor Relationship Specialty Start Date End Date Valery Berrios MD [address] [place] [address] PCP - General Internal Medicine 12/01/18 12/21/23 Vicenta Nielsen NP [address] [place] [address] PCP - General Family Medicine 12/22/23 [employer] 04/29/24 abigail mcneill [employer] SalespersonVitamin Manager 10/18/24 documented as of this encounter
--- OUTSIDE RECORDS SUMMARY | 2025-08-15 18:24 | XMS_ITS | Encounter Summary ---
Author Organization [email or web address] Address [address] [facility] [address] [place] [address] Care Team Providers Care Kitchen Supervisor Name Role Phone Vicenta Nielsen NP Primary Care Provider [phone] Reason for Visit * Reason Onset Date Comments Referral 10/31/2024 Encounter Details Date Type Department Care Team ([facility] Contact Info) Description 10/31/2024 Telephone [facility] [address] [place], [place] [phone] Vicenta Nielsen NP [address] [place] [address] Referral Social History Tobacco Use Types Packs/Day [...] in a lot of pain. Contact pt: [phone] documented in this encounter Plan of Treatment Not on file documented as of this encounter Visit Diagnoses Not on filedocumented in this encounter Additional Health Concerns Assessment Noted Time PHQ-9 Depression Total Score: 7 07/25/20 9:24 AM EDT documented as of this encounter Care Teams Kitchen Supervisor Relationship Specialty Start Date End Date Vicenta Nielsen NP [address] [place] [address] PCP - General Family Medicine 12/22/23 [employer] 04/29/24 abigail [email or web address] Aircraft [employer] DispatcherAutomatic Drill Operator 10/18/24 documented as of this encounter
--- OUTSIDE RECORDS SUMMARY | 2025-08-15 18:24 | XMS_ITS | Clinical Summary ---
Author Organization [facility] Address [address] [place] [address] Care Team Providers Care Commissioning Agent Name Role Phone Vicenta Nielsen Primary Care Provider [phone] Allergies Active Allergy Reactions Criticality Noted Date [...] Maintenance Due Date Last Done Comments Hepatitis C Screening 1965 Depression Screening 1977 Preventative Health Evaluation 1983 Colon Cancer Screening (Colonoscopy) 2010 COVID-19 Vaccine ( season) 2025 03/04/2021, 02/11/2021 Influenza Vaccine (#1) 2025 3, 07/20/2022, 07/04/2019, Additional history exists DTap / Tdap / Td (2 - Td or Tdap) 07/04/2029 07/04/2019 RSV Adult > 60+ Yrs or (1 - 1-dose 75+ series) 2040 Pneumococcal Vaccine Aged Out 06/28/2023, 02/26/20 17 No longer eligible based on patient's age to complete this topic Shingrix-Zoster Vaccine Completed 06/28/2023, 04/20 Hepatitis B Vaccines Aged Out No long er eligible based on patient's age to complete this topic RSV Ped < 20 months Aged Out No longe r eligible based on patient's age to complete this topic Care Teams Commissioning Agent Relationship Specialty Start Date End Date Vicenta Nielsen [address] [place] [address] PCP - General Family Medicine 05/26/24
--- OUTSIDE RECORDS SUMMARY | 2025-08-15 18:24 | XMS_ITS | Encounter Summary ---
Author Organization [employer] Address [address] [place] [address] Street [address] [place] [address] Care Team Providers Care Emergency Room Orderly Name Role Phone Vicenta Nielsen NP Primary Care Provider [phone] Reason for Visit * Reason Onset Date Comments PT-1 10/31/2024 Encounter Details Date Type Department Care Team ([facility] st Contact Info) Description 10/31/2024 Telephone [facility] [address] [place], [place] [phone] Vicenta Nielsen NP [address] [place] [address] PT-1 Social History Tobacco Use Types Packs/Day [...] facility name: [address] [facility] [facility] Escort needed: Y/N: Yes Do you have a wheelchair: Y/N: Yes If yes- Manual or electric: electric Visits: (3) ( x monthly) * Telephone Encounter - Jacobo Ross - 10/31/2024 10:29 AM EST Patient calling requesting PT1 Home Address verified: Y/N: Yes Provider name or facility name: Renzo Oro[address] [address] Escort needed: Y/N: Yes Do you have [...] documented as of this encounter Care Teams Emergency Room Orderly Relationship Specialty Start Date End Date Vicenta Nielsen NP [address] [place] [address] PCP - General Family Medicine 12/22/23 [employer] 04/29/24 abigail [email or web address] [employer] SupervisorNewspaper Peddler 10/18/24 documented as of this encounter
--- OUTSIDE RECORDS SUMMARY | 2025-08-15 18:24 | XMS_ITS | Encounter Summary ---
Author Organization [employer] Address [address] [facility] [address] [place] [address] Care Team Providers Care Core Sucker Name Role Phone Vicenta Nielsen NP Primary Care Provider [phone] Encounter Details Date Type Department Care Team (Latest Contact Info) Description 08/13/2025 Travel Social History Tobacco Use Types Packs/Day [...] as of this encounter Care Teams Core Sucker Relationship Specialty Start Date End Date Vicenta Nielsen NP [address] [place] [address] PCP - General Family Medicine 12/22/23 [employer] 04/29/24 abigail [email or web address] Critical Systems TechnicianExpander 10/18/24 documented as of this encounter
--- OUTSIDE RECORDS SUMMARY | 2025-08-15 18:24 | XMS_ITS | Clinical Summary ---
Author Organization [employer] Address [address] [place] [address] [address] [place] [address] Care Team Providers Care Design Studio Consultant Name Role Phone Vicenta Nielsen NP Primary Care Provider [phone] Allergies Active Allergy Reactions Criticality Noted Date Comments Bee Pollen 05/07/2023 Bee Venom Anaphylaxis High 12/15/2018 Beeswax Unknown 03/21/2024 Per Johan Cortés Erythromycin Itching 07/04/2019 Iodinated Contrast Media Shortness of breath High 11/20/2022 Iodine 12/15/2018 Medications * This document contains information received from the source organization and may not represent a complete record from that organization. Blood Glucose Monitoring Suppl ([employer] Lite) w/Device kit TEST BLOOD SUGAR FOUR TIMES DAILY 022 Active METHADONE HCL PO Take 115 mg by mouth in the morning. Active Diclofenac Sodium 1 % gelIndications: Chronic pain of both knees,Left hip pain,Chronic right shoulder pain To apply to the affected areas 3 times a day 100 g 1 023 Active Continuous Blood Gluc Sensor (OmmvenStyle Oumar 2 Sensor) [facility] [place] USE DIRECTED TO TEST BLOOD SUGAR. CHANGE EVERY 14 DAYS . 2 each 11 024 Active ipratropium-alb uterol (Combivent Respimat) 20-100 MCG/ACT inhalerIndicati ons:COPD mixed type (CMS/HCC) (HCC) Inhale 1 puff if needed in the [...] complication, with long-term current use of insulin ([facility]) USE DIRECTED TO TEST BLOOD SUGAR FOUR TIMES DAILY 100 strip 11 025 Active acetaminophen (Tylenol) 325 MG tabletIndicatio ns:Musculoskele zenobia pain TAKE 1 TABLET BY MOUTH EVERY 4 HOURS NEEDED FOR MILD PAIN 30 tablet 1 025 Active Continuous Glucose Occupational Medicine Officer (FreeStyle Oumar 3 Eldred) deviceIndicatio ns:Diabetes mellitus, type II, insulin dependent (HCC) 1 each Once per day. Use as directed for CGM 1 each 025 Active Continuous Glucose Sensor (FreeStyle Oumar 3 Plus Sensor) miscIndications :Diabetes mellitus, type II, insulin dependent (HCC) 1 each every 15 days. Apply 1 every 15 days as directed for CGM 2 each 025 Active glucose blood (FreeStyle Precision Keven Test) test stripIndication s:Diabetes mellitus, type II, insulin dependent (HCC) Use to test blood sugar 4 times daily in case of CGM failure or extremes of BG 100 each 025 2025 Active TRUEplus Lancets 33G miscIndications :Type 2 diabetes mellitus without complication, with long-term current use of insulin ([facility]) USE DIRECTED TO TEST BLOOD SUGAR FOUR TIMES DAILY 100 each 5 025 Active Lactobacillus Acid-Pectin (Acidophilus/Ci trus Pectin) tabletIndicatio ns:prison (current) use of antibiotics TAKE 1 TABLET BY MOUTH THREE TIMES DAILY 90 tablet 2 025 Active insulin pen needle (Novofine Pen Needle) 32G x 6 mm miscIndications :Type 2 diabetes mellitus without complication, with long-term current use of insulin ([facility]) USE DIRECTED 5 TO 6 TIMES DAILY DIRECTED 200 each 025 Active olmesartan-hydr oCHLOROthiazide (BENIcar HCT) 40-25 MG tabletIndicatio ns:Hypertension , unspecified type TAKE 1 TABLET BY MOUTH EVERY DAY 90 tablet 1 Active insulin lispro (HumaLOG) 100 UNIT/ML injection 18-30 units subcutaneous with meals and snacks 15 mL 11 Active LORazepam (Ativan) 0.5 MG tabletIndicatio ns:Panic attack Take 1 tablet (0.5 mg) by mouth if needed each day for anxiety (3) for up to 3 days. 3 tablet 025 Active Alcohol Swabs (Alcohol Prep) 70 % padsIndications :Type II diabetes mellitus with complication (HCC) APPLY TOPICALLY SIX TIMES DAILY DIRECTED 100 each Active cyclobenzaprine (Flexeril) 10 MG tabletIndicatio ns:Muscle spasm Take 1 tablet (10 mg) by mouth if needed in the morning and at bedtime for muscle spasms for up to 20 days. 40 tablet 025 Active polyethylene glycol, PEG, 3350 (Glycolax) 17 GM/SCOOP powder TAKE 17 GM MIXED IN 8 OUNCES OF WATER, COFFEE OR TEA ONCE DAILY 510 g 1 Active insulin glargine (Lantus SoloStar) 100 UNIT/ML penIndications: Type 2 diabetes mellitus with hyperglycemia, with long-term current use of insulin (HCC) Inject 30 Units under the skin 2 times daily. 15 mL 3 Active propranolol LA (Inderal LA) 60 MG 24 hr capsule Take 1 capsule (60 mg) by mouth Once per day. Do not crush, chew, or split. 30 capsule 2 025 2025 Active Nutritional Supplements (Ensure) Take 237 mL by mouth Once per day. 237 mL 12 025 2025 Active Nutritional Supplements (Yared) powderIndicatio ns:Amputation of right great toe (CMS/HCC) 1 packet to dilute in 8 oz of water 2 times a day 545 g 3 023 2024 Discontinued polyethylene glycol, PEG, 3350 (Glycolax) 17 GM/SCOOP powder TAKE 17 GM MIXED IN 8 OUNCES OF WATER, COFFEE OR TEA ONCE DAILY FOR 3 DAYS 510 g 1 025 2024 Discontinued Lantus SoloStar 100 UNIT/ML penIndications: Type 2 diabetes mellitus with hyperglycemia, with long-term current use of insulin (HCC) INJECT 20 UNITS SUBCUTANEOUSLY TWICE DAILY 15 mL 3 025 2024 Discontinued(R eorder (will not trigger notification to Pharmacy)) cyclobenzaprine (Flexeril) 10 MG tabletIndicatio ns:Muscle spasm Take 1 tablet (10 mg) by mouth if needed in the morning and at bedtime for muscle spasms for up to 20 days. 40 tablet 025 2024 Discontinued(R eorder (will not trigger notification to Pharmacy)) propranolol (Inderal) 10 MG tablet Take 1 tablet (10 mg) by mouth if needed each day (as needed) for up to 5 days. 5 tablet 025 2024 Discontinued Active Problems Patient Care Coordination No te Formatting of this note migh t be different from the original. 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) 08/13/2025 Assessment & Plan (08/14/2025 11:21 AM EST): Orders: Referral to Physical Therapy; Future Encounter for screening for malignant neoplasm o f colon 08/13/2025 Assessment & Plan (08/14/2025 11:21 AM EST): Screening for colon cancer 08/13/2025 Assessment & Plan (08/14/2025 11:21 AM EST): Orders: Cologuard colon cancer screening History of thyroid nodule 08/13/2025 Assessment & Plan (08/14/2025 11:21 AM EST): Anxiety disorder 08/13/2025 Assessment & Plan (08/14/2025 11:21 AM EST): Orders: Referral to Psychiatry; Future Encounter for vaccination 08/13/2025 Assessment & Plan (08/14/2025 11:21 AM EST): Orders: COVID-19 VACCINE [id number] (Comirnaty) 19 yrs + Encounter for immunization 08/13/2025 Assessment & Plan (08/14/2025 11:21 AM EST): Orders: FLU VACCINE TRIVALENT (Fluarix) 19 yrs + Food insecurity 08/13/2025 Assessment & Plan (08/14/2025 11:21 AM EST): Poor dentition 08/13/2025 Assessment & Plan (08/14/2025 11:21 AM EST): Diabetes mellitus, type II, insulin dependent Type II diabetes mellitus with complication 06/2025 Assessment & Plan (08/14/2025 11:21 AM EST): Orders: POCT Glucose POCT Hgb A1c HIV-1/2 Antigen and Antibodies, Fourth Generation, with Reflexes; Future Comprehensive Metabolic Panel; Future Lipid Panel, Standard; Future Hemoglobin A1c; Future Assessment & Plan (06/20/2025 6:02 PM EDT): Orders: POCT Glucose Assessment & Plan (02/11/2025 2:54 PM EDT): [...] team, recent debridement Coronary artery disease involving belkofski heart 0 11/10/2024 Pain of right hip 09/29/2024 Assessment & Plan (09/29/2024 5:26 PM EST): Secondary to amputation Referral to pt Chronic antibiotic suppression 08/21/2024 Long-term current use of methadone for opiate de pendence 08/17/2024 Assessment & Plan (08/14/2025 11:21 AM EST): DM2 (diabetes mellitus, type 2) 08/17/2024 Assessment [...] sxs. Referral placed for OP therapy with [facility] in [place]. Provided patient referral letter and agency contact [...] sxs. Provided information for [facility] in [place] for sooner appointments. Assessment & Plan (07/24/2024 7:13 PM EDT): Pt with significant anxiety, related to home life and serious illnesses, ibh into meet with patient Panic attacks 07/24/2024 [...] sxs. Provided information for [facility] in [place] for sooner appointments. Amputation of right lower [...] , advised him to f/u with career representative Pelvic lymphadenopathy 05/23/2024 Overview (05/23/2024): CT scan abd/pelvis at [facility] on 02/20/24: IMPRESSION: 1. Pelvic lymphadenopathy. There [...] has fu with Dr. Praveena Quan on 05/26/24 PCP to fu Hyperkalemia 05/23/2024 Assessment & [...] does not receive his care in the [facility] system, and there are limited records, including labs, available for review in Care Everywhere. Hgb over the past 2 weeks PIPELINE CONSTRUCTION INSPECTOR has ranged from 6.7 to 8.2. Patient has an unknown baseline H&H. Patient underwent TMA of the right foot on February 06, [address] Escalante. This was performed at [facility], and patient was discharged to rehab at [facility] in [place]. Starting on 03/07, patient with increased bleeding from amputation site. He presented to the ED on this date, was seen by podiatry, and given lack of active bleeding and stable H&H, he was DC'd back to rehab. Came back 03/12 with bleeding, however this stopped with elevation and he was again discharged back to [place], only to return on 03/13. He was [...] -Close follow up with Dr. Escalante in [place]. Appointment scheduled for 04/04/2024 at 2:30 PM [...] is adequately controlled Osteomyelitis of right foot ([facility]) 03/21/2024 Overview (07/20/2024): Last Assessment & Plan: Home medications: Vancomycin 1000 mg q12 hour Patient with a history of type 2 diabetes who underwent right foot TMA on February 06, 2024. This surgery was performed at [facility]. Patient was ultimately discharged to [facility] for ongoing rehab, and was [...] and low-dose ISS nightly Assessment & Plan (08/14/2025 11:21 AM EST): Orders: insulin glargine (Lantus SoloStar) 100 UNIT/ML pen; Inject 30 Units under the skin 2 times daily. Assessment & Plan (01/11/2025 6:57 PM EDT): [...] bmp ordered Anemia 01/04/2024 Assessment & Plan (08/14/2025 11:21 AM EST): Orders: CBC auto differential; Future Assessment & Plan (11/12/2024 7:17 PM EST): Cbc ordered Assessment & Plan (05/23/2024 3:09 PM EDT): Likely of a chronic disease (osteomyelitis), he was transfused PRBC with hb of 7 Check Hb Assessment & Plan (01/29/2024 4:21 PM EDT): Reports hx of , not certain type , labs ordered COPD mixed type ([facility]) 01/04/2024 Assessment & Plan (01/29/2024 4:20 PM [...] to be rotated) ciprofloxacin 500mg BID Sepsis ([facility]) 06/25/2023 Assessment & Plan (07/24/2024 7:09 PM EDT): PICC in right arm, continue iv antbiotics Cellulitis 06/25/2023 Assessment & Plan (09/06/2024 6:17 PM EST): PICC , stable with iv therapy at home No acute concerns Assessment & Plan (01/29/2024 4:22 PM EDT): Chronic venous stasis, in care with wound team, continue current abx Osteomyelitis of toe ([facility]) 05/17/2023 Osteomyelitis 02/02/2023 Benign hypertension 07/20/2022 Assessment [...] Asthma 10/07/2020 Chronic type B viral hepatitis ([facility]) 016 Opioid dependence 07/02/2016 Assessment & Plan (04/08/2024 [...] Encounters Date Type Department Care Team Description 08/13/2025 2:45 PM EST Office Visit [address] [address] Vicenta Nielsen NP History of hepatitis C (Primary Dx); Type [...] of insulin (HCC); Food insecurity; Poor dentition 08/13/2025 Travel 08/13/2025 Refill [facility] [address] [place] [phone] Vicenta Nielsen NP Type 2 diabetes mellitus with hyperglycemia, with long-term current use of insulin (HCC) 08/11/[address] [address] Estrella Calderon MA chart prep 08/06/2025 Patient Outreach [facility] [address] [place] [address] Vicenta Nielsen NP Pre-visit Planning (SDOH was already completed ) 07/31/2025 Refill [facility] [address] [place] [address] Vicenta Nielsen NP 07/31/2025 Patient Outreach [facility] [address] [place] [phone] Vicenta Nielsen NP Care Coordination ([facility] outreach for SDOH PT-1 and food needs-referral completed /) 07/19/2025 Refill [facility] [address] [place] [address] Vicenta Nielsen NP Muscle spasm 07/09/2025 Orders Only [address] [address] Vicenta Nielsen NP Panic attacks (Primary Dx) 06/28/[address] [address] Vicenta Nielsen NP Type II diabetes mellitus with complication (CMS/HCC) 06/27/[address] [address] Vicenta Nielsen NP fyi; Nurse Triage 06/27/2025 Results Follow-Up [address] [address] Digna Arcos ANP POCT urinalysis dipstick manually resulted, Culture, Urine, Routine 06/21/2025 Patient Outreach [address] [address] Vicenta Nielsen NP Care Coordination ([facility] outreach for SDOH PT-1 and food needs-referral completed /) 06/20/2025 11:30 AM EDT Office Visit [address] [address] Vicenta Nielsen NP Panic attack (Primary Dx); Type II diabetes mellitus with complication (CMS/HCC) 06/20/2025 Travel 06/14/2025 Telephone [facility] [address] [place] [address] Vicenta Nielsen NP Chart Prep 05/28/2025 3:00 PM EDT Office Visit [address] [address] Digna Arcos ANP Hematuria, unspecified type (Primary Dx); Dysuria; Hypertension associated with diabetes (CMS/HCC) 05/28/2025 Travel 05/28/[address] [address] [place], Vicenta, WORKFORCE SERVICES REPRESENTATIVE Nurse Triage from Last 3 Months Immunizations Immunization Administration Dates Next Due Influenza Injectable Quadriv alant Preservative Free IIV4 MDCK 06/28/2023 Influenza injectable quadriv alent IIV4 with preservative 07/02/2016 Influenza injectable quadriv alent preservative free 07/20/2022,07/04/2019,06/09/2018 Influenza, seasonal, injecta ble, preservative free 08/13/2025,05/26/2017 Pfizer Covid-19 Vaccine 12+ 08/13/2025,,02/11/2021 Pneumococcal Conjugate PCV 20 06/28/2023 Tdap 07/04/2019 [...] Mass Index 42.09 08/13/2025 3:00 PM EST Plan of Treatment Health Maintenance Due Date Last Done Comments CT Colonography 1965 Colonoscopy 1965 Colorectal Cancer Screening 1965 FIT DNA/Cologuard 1965 FIT 1965 FOBT 1965 HIV Screening 1965 Sigmoidoscopy 1965 Diabetes: Foot Exam 1975 Eye Exam 1975 Hepatitis A Vaccines (1 of 2 - Risk 2-dose series) 1984 RSV Patients and Patients Aged 60 years or older (1 - Risk 50-74 years 1-dose series) 2015 Diabetes: Urine Protein Screening 06/02/2025 06/02/2024, 06/02/2024, 12/31/2022, Additional history exists Hepatitis B Vaccines (1 of 3 - Risk 3-dose series) 2025 Alcohol/Substance Use Screening 09/29/2025 09/29/2024 Diabetes: Hemoglobin A1C 11/15/202508/15/2 025, 08/13/2025, 04/11/2025, Additional history exists SDOH Screening 01/08/2026 01/08/2025 Disability Screening 02/09/2026 02/09/2025 Depression Screening 04/11/2026 04/11/2025, 04/11/20 Tobacco Screening 06/20/2026 06/20/2025 Lipid Panel 08/15/2026 08/15/2025, 05/06, 12/31/2022 DTaP/Tdap/Td Vaccines (2 - Td or Tdap) 07/04/2029 07/04/2019 Pneumococcal Vaccine: 50+ Years Completed 06/28/2023 Zoster Vaccines Completed 06/28/2023, 04/20/2023 COVID-19 Vaccine Completed 08/13/2025, , 10/20/2021, Additional history exists Influenza Vaccine Completed 08/13/2025, , 07/20/2022, Additional history exists HIB Vaccines Aged Out No longer eligi [...] Type Associated Problems Recent Progress Patient-Stated? Author Help patients manage their type 2 diabetes Care Plan Help patients manage their type 2 diabetes Michelle Huff Weekly blood pressure task Care Plan Weekly blood pressure task Michelle Huff Help patients manage their type 2 diabetes Care Plan Help patients manage their type 2 diabetes Michelle Huff Patient has chronic kidney disease Care Plan Patient has chronic kidney disease Michelle Huff Procedures Procedure Name Priority Date/Time Associated Diagnosis [...] mellitus with complication (HCC) POCT GLUCOSE Routine 06/20/2025 12:04 PM EDT Type II diabetes mellitus with complication (CMS/HCC) POCT URINALYSIS DIPSTICK Routine 05/28/2025 3:50 PM EDT Dysuria CULTURE, URINE, ROUTINE Routine 05/28/2025 12:00 AM EDT Dysuria ALBUMIN, RANDOM URINE W/CREATININE Routine 06/02/2024 11:49 AM EDT from Last 3 Months or Most Recently Relevant to Health Maintenance Results * PSA, Screen (08/15/2025 3:16 PM EST) PSA, Total 0.12 <0.05 - 4.0 ng/mL [facility] Comment:PSA methodology: Abb radha Moss i ChemiluminescentMicroparticle Immunoassay (CMIA) Blood Venous blood specimen / Unknown 08/15/2025 3:16 PM EST 08/15/2025 3:16 PM EST us Vicenta Nielsen NP LAB BLOOD ORDERABLES Final Resul t [facility] [address] [place] [phone] * (ABNORMAL) CBC auto differential (08/15/2025 3:16 PM EST) White Blood Count 8.8 4.8 - 10.8 X10*3/uL [facility] Red Blood Count 3.70(L) 4.60 - 5.80 X10*6/uL [facility] Hemoglobin 11.8(L) 14.0 - 18.0 g/dl [facility] Hematocrit 35.1(L) 42.0 - 52.0 % [facility] Mean Corpuscular Volume 94.9 80.0 - 98.0 fL [facility] Mean Corpuscular Hemoglobin 31.9 27.0 - 33.0 pg [facility] Mean Corpuscular HGB Conc 33.6 31.0 - 36.0 g/dl [facility] Red Cell Distribution Width 13.4 11.0 - 16.0 % [facility] Platelet Count 194 160 - 400 X10*3/uL [facility] Mean Platelet Volume 10.1 9.4 - 12.4 fL [facility] Neutrophils Percent Auto 77.4(H) 45 - 73 % [facility] Imm Gran Pct Auto 0.6(H) 0.0 - 0.4 % [facility] Lymphocytes Percent Auto 10.7(L) 20 - 40 % [facility] Monocytes Percent Auto 8.3 2 - 11 % [facility] Eosinophils Percent Auto 2.3 0 - 4 % [facility] Basophils Percent Auto 0.7 0 - 2 % [facility] NRBC Pct Auto 0.0 0.0 - 0.2 /100WBC [facility] Neutrophils Absolute Auto 6.8 2.0 - 8.3 x10*3/uL [facility] Imm Gran Abs Auto 0.05(H) 0.00 - 0.03 X10*3/uL [facility] Lymphocytes Absolute Auto 0.9(L) 1.2 - 4.9 X10*3/uL [facility] Monocytes Absolute Auto 0.7 0.1 - 1.2 X10*3/uL [facility] Eosinophils Absolute Auto 0.2 0.0 - 0.4 X10*3/uL [facility] Basophils Absolute Auto 0.1 0.0 - 0.2 X10*3/uL [facility] NRBC Abs Auto 0.000 0.0 - 0.012 X10*3/uL [facility] Blood Venous blood specimen / Unknown 08/15/2025 3:16 PM EST 08/15/2025 3:16 PM EST Vicenta Nielsen NP LAB BLOOD ORDERABLES Final Resul t Performing Organization Address [facility] de Phone Number [facility] [address] [place] [phone] * (ABNORMAL) Hemoglobin A1c (08/15/2025 3:16 PM EST) Hemoglobin A1c 7.1(H) <6.0 % [facility] Comment:Hemoglobin A1C Refer ence Range Adults: 4.8 - 6.0 % Non diabetic: < 6.0 % Goal: < 7.0 %Additional Action Suggested: > 8.0 %Note: Hemoglobin A1c results are invalid for patients with abnormal amounts of HbF. Blood transfusions may impact the HbA1c concentration in the patient sample. Estimated Average Glucose 157 mg/dL [facility] Comment:eAG = Estimated ave rage glucose which is %A1C expressed asaverage glucose, using the formula of the [id number] Glucose study (ADAG), Diabetes Care, Vol.31,#8,May. 2007 Blood Venous blood specimen / Unknown 08/15/2025 3:16 PM EST 08/15/2025 3:16 PM EST us Vicenta Nielsen WORKFORCE SERVICES REPRESENTATIVE LAB BLOOD ORDERABLES Final Resul t Performing Organization Address [facility] Co de Phone Number [facility] [address] [place] [phone] * (ABNORMAL) Lipid Panel, Standard (08/15/2025 3:16 PM EST) Triglycerides 307(H) <150 mg/dL [facility] Comment:Desirable Triglyceri de: less than 150 mg/dLBorderline High Triglyceride 150-199 mg/dLHigh Triglyceride: 200-499 mg/dLVery High Triglyceride: greater than or equal to 5OO mg/dL Cholesterol 154 <200 mg/dL [facility] Comment:Desirable Cholestero l: less than 200 mg/dLBorderline High Cholesterol: 200-239 mg/dLHigh Cholesterol: greater than 239 mg/dL LDL Cholesterol Calculated 61 <100 mg/dL [facility] Comment:Desirable LDL: less than 100 mg/dLNear Optimal/Above Optimal LDL: 110- 129 mg/dLBorderline High LDL: 130-159 mg/dLHigh LDL: 160-189 mg/dLVery High LDL: greater than or equal to 190 mg/dL HDL Cholesterol 32(L) >40 mg/dL [facility] Comment:Desirable HDL: great er than 40 mg/dL Note: This HDL assay may give artificially low results in patients with liver disease. Blood Venous blood specimen / Unknown 08/15/2025 3:16 PM EST 08/15/2025 3:16 PM EST us Vicenta Nielsen WORKFORCE SERVICES REPRESENTATIVE LAB BLOOD ORDERABLES Final Resul t [facility] [address] [place] [phone] * (ABNORMAL) Comprehensive Metabolic Panel (08/15/2025 3:16 PM EST) Sodium 137 135 - 145 mmol/L [facility] Potassium 4.6 3.3 - 5.1 mmol/L [facility] Chloride 100 96 - 108 mmol/L [facility] Carbon Dioxide 30(H) 22 - 29 mmol/L [facility] Anion Gap 12 12 - 20 [facility] Urea Nitrogen (BUN) 16 9 - 16 mg/dL [facility] Creatinine, Serum 0.81 0.5 - 1.4 mg/dL [facility] Estimated Glomerular Filt Rate >60 [facility] Comment:Chronic Kidney Disea se: Estimated GFR < 60 mL/min/[id number] Kidney Disease: Estimated GFR < 15 mL/min/1.73m2 Glucose 150(H) 60 - 115 mg/dL [facility] Calcium 8.8 8.4 - 10.2 mg/dL [facility] Bilirubin, Total 0.4 0.0 - 1.0 mg/dL [facility] Aspartate Amino Transferase 38(H) 5 - 37 U/L [facility] Alanine Aminotransferase 31 0 - 40 U/L [facility] Total Protein 7.6 6.5 - 8.0 g/dL [facility] Albumin Level 4.2 3.5 - 5.0 g/dL [facility] Alkaline Phosphatase 110 39 - 117 U/L [facility] Blood Venous blood specimen / Unknown 08/15/2025 3:16 PM EST 08/15/2025 3:16 PM EST us Vicenta Nielsen WORKFORCE SERVICES REPRESENTATIVE LAB BLOOD ORDERABLES Final Resul t [facility] [address] [place] [address] [phone] * (ABNORMAL) POCT Hgb A1c (08/13/2025 3:03 PM EST) Hemoglobin A1C 6.9(A) 4.0 - 5.7 % QC Media Lot # [id number] Lot# Expiration Date [id number] Blood 08/13/2025 3:03 PM EST us Vicenta Nielsen WORKFORCE SERVICES REPRESENTATIVE POINT OF CARE TEST ENTER/EDIT OR DERABLES Final Result * POCT Glucose (08/13/2025 3:02 PM EST) Only the most recent of2 resultswithin the time period is included. Glucose Blood, POC 173 60 - 200 mg/dL QC Media Lot # [id number] Lot# Expiration Date Blood Capillary blood specimen / Unknown 08/13/2025 3:02 PM EST Vicenta Nielsen NP POINT OF CARE TEST ENTER/EDIT OR DERABLES Final Result * (ABNORMAL) POCT urinalysis dipstick manually resulted [...] Media Lot # [id number] Lot# Expiration Date Urine 05/28/2025 3:50 PM EDT Digna Arcos ANP POINT OF CARE TEST ENTER/EDIT OR DERABLES Final Result * Culture, Urine, Routine (05/28/2025 12:00 AM EDT) Urine Urine specimen obtained by clean catch procedure / Unknown 05/28/2025 05/28/2025 Comment:[facility] Narrative [facility] - 05/30/2025 12:45 PM EDT Strep agalactiae (Grp B) Quant 10,000 to 50,000 cfu/mL Susc N/A Susceptibility not routinely performed on this isolate. Specimen Source: Urine clean catch Digna Arcos ANP LAB MICROBIOLOGY - GENERAL ORDER GAVIN Final Result [facility] [address] [place] [phone] * Albumin, Random Urine W/Creatinine (06/02/2024 11:49 AM EDT) Creatinine, Urine 75.26 mg/dL [facility] Microalbumin Urine 10.0 mg/L [facility] Microalbum Creatinine Ratio Ur 13.2 <30 ug/mg cr [facility] Comment:Albumin/Creatinine R atio Reference Ranges: Normal: < 30 ug/mg creatinine Microalbuminuria: 30 - 300 ug/mg creatinineClinical Albuminuria: > 300 ug/mg creatinine 06/02/2024 11:4 9 AM EDT 06/02/2024 1:11 PM EDT us Generic External Data Provider LAB URINE ORDERAB LES Final Result [facility] [address] [place] [address] [phone] from Last 3 Months or Most Recently Relevant to Health Maintenance Additional Health Concerns Active Problems Noted Date Diagnosed Date Help patients manage their type 2 diabetes 08/15 Weekly blood pressure task 08/15/2025 Help patients manage their type 2 diabetes 08/15 Patient has chronic kidney disease 08/15/2025 Insurance Care Teams Design Studio Consultant Relationship Specialty Start Date End Date Vicenta Nielsen NP [address] [place] [address] PCP - General Family Medicine 12/22/23 [employer] 04/29/24 abigail mcneill SaturatorClerk Of Superior Court 10/18/24
--- OUTSIDE RECORDS SUMMARY | 2025-08-15 18:24 | XMS_ITS | Encounter Summary ---
Author Organization [facility] [place] [address] Care Team Providers Care High School French Teacher Name Role Phone Vicenta Nielsen RAZ Primary Care Provider Encounter Details Date Type Department Care Team (Late st Contact Info) Description 08/30/2024 Lab Requisition [facility] - Main Lab 299 [facility] [place] [address] Mary Song MD [address] [address] Cellulitis, unspecified Social History Tobacco Use Types [...] K/mcL LAB HEMETOLOGY METHOD 08/30/2024 9:13 AM [facility] RBC 3.90(L) 4.50 - 5.50 M/mcL LAB HEMETOLOGY METHOD 08/30/2024 9:13 AM [facility] Hemoglobin 10.5(L) 13.5 - 17.5 g/dL LAB HEMETOLOGY METHOD 08/30/2024 9:13 AM [facility] Hematocrit 32.8(L) 42.0 - 54.0 % LAB HEMETOLOGY METHOD 08/30/2024 9:13 AM [facility] MCV 84.5 79.0 - 98.0 FL LAB HEMETOLOGY METHOD 08/30/2024 9:13 AM [facility] MCH 27.1 27.0 - 32.0 pcg LAB HEMETOLOGY METHOD 08/30/2024 9:13 AM [facility] MCHC 32.0 32.0 - 37.0 g/dL LAB HEMETOLOGY METHOD 08/30/2024 9:13 AM [facility] RDW 14.9 11.0 - 15.0 % LAB HEMETOLOGY METHOD 08/30/2024 9:13 AM [facility] Platelets 206 130 - 400 K/mcL LAB HEMETOLOGY METHOD 08/30/2024 9:13 AM [facility] MPV 12.6(H) 7.0 - 11.0 FL LAB HEMETOLOGY METHOD 08/30/2024 9:13 AM [facility] NRBC 0.0 <1.0 % LAB HEMETOLOGY METHOD 08/30/2024 9:13 AM [facility] NRBC Absolute 0.00 <0.10 K/mcL LAB HEMETOLOGY METHOD 08/30/2024 9:13 AM [facility] Neutrophils Relative 63.6 % LAB HEMETOLOGY METHOD 08/30/2024 9:13 AM [facility] Lymphocytes Relative 20.7 % LAB HEMETOLOGY METHOD 08/30/2024 9:13 AM [facility] Monocytes Relative 11.6 % LAB HEMETOLOGY METHOD 08/30/2024 9:13 AM [facility] Eosinophils Relative 3.0 % LAB HEMETOLOGY METHOD 08/30/2024 9:13 AM [facility] Basophils Relative 1.0 % LAB HEMETOLOGY METHOD 08/30/2024 9:13 AM [facility] Immature Granulocytes Relative 0.1 % LAB HEMETOLOGY METHOD 08/30/2024 9:13 AM [facility] Neutrophils Absolute 4.26 1.50 - 7.00 K/mcL LAB HEMETOLOGY METHOD 08/30/2024 9:13 AM [facility] Lymphocytes Absolute 1.39 1.00 - 5.00 K/mcL LAB HEMETOLOGY METHOD 08/30/2024 9:13 AM [facility] Monocytes Absolute 0.78 0.20 - 1.00 K/mcL LAB HEMETOLOGY METHOD 08/30/2024 9:13 AM [facility] Eosinophils Absolute 0.20 0.00 - 0.50 K/mcL LAB HEMETOLOGY METHOD 08/30/2024 9:13 AM [facility] Basophils Absolute 0.07 0.00 - 0.20 K/mcL LAB HEMETOLOGY METHOD 08/30/2024 9:13 AM [facility] Immature Granulocytes Absolute 0.01 0.00 - 0.03 K/mcL LAB HEMETOLOGY METHOD 08/30/2024 9:13 AM EST [facility] Blood Venous blood specimen / Unknown 08/29/2024 08/30/2024 9:03 AM EST us Mary Song MD LAB BLOOD ORDERABLES Final Result [facility] [address] [place] [address], [place] [phone] * Creatine kinase (08/29/2024 12:00 AM EST) Pathologist [facility] Total CK 63 22 - 269 unit/L LAB CHEMISTRY METHOD 08/30/2024 9:25 AM [facility] Blood Venous blood specimen / Unknown 08/29/2024 08/30/2024 9:03 AM EST Mary Song MD LAB BLOOD ORDERABLES Final Result Performing Organization Address City/[facility]/ZIP Co de Phone Number [facility] [address] [place] [address], [place] [phone] * (ABNORMAL) Comprehensive metabolic panel (08/29/2024 12:00 AM EST) [facility] Sodium 138 133 - 145 mmol/L LAB CHEMISTRY METHOD 08/30/2024 9:25 AM [facility] Potassium 4.8 3.5 - 5.5 mmol/L LAB CHEMISTRY METHOD 08/30/2024 9:25 AM [facility] Chloride 105 96 - 110 mmol/L LAB CHEMISTRY METHOD 08/30/2024 9:25 AM [facility] CO2 27 21 - 32 mmol/L LAB CHEMISTRY METHOD 08/30/2024 9:25 AM [facility] Anion Gap 6 3 - 11 LAB CHEMISTRY METHOD 08/30/2024 9:25 AM [facility] Glucose 104(H) 70 - 100 mg/dL LAB CHEMISTRY METHOD 08/30/2024 9:25 AM [facility] BUN 26(H) 5 - 25 mg/dL LAB CHEMISTRY METHOD 08/30/2024 9:25 AM [facility] Creatinine 1.10 0.70 - 1.30 mg/dL LAB CHEMISTRY METHOD 08/30/2024 9:25 AM [facility] eGFR 77 >=60 mL/min/1. 73m2 LAB CHEMISTRY METHOD 08/30/2024 9:25 AM [facility] Comment:Calculation based on the Chronic Kidney Disease Epidemiology Collaboration (CKD-EPI) equation refit without adjustment for race. BUN/Creatinine Ratio 23.6 LAB CHEMISTRY METHOD 08/30/2024 9:25 AM [facility] Calcium 9.4 8.5 - 10.5 mg/dL LAB CHEMISTRY METHOD 08/30/2024 9:25 AM [facility] AST (SGOT) 16 10 - 42 unit/L LAB CHEMISTRY METHOD 08/30/2024 9:25 AM [facility] ALT (SGPT) 24 10 - 60 unit/L LAB CHEMISTRY METHOD 08/30/2024 9:25 AM [facility] Alkaline Phosphatase 91 42 - 121 unit/L LAB CHEMISTRY METHOD 08/30/2024 9:25 AM [facility] Total Protein 7.7 6.0 - 8.0 g/dL LAB CHEMISTRY METHOD 08/30/2024 9:25 AM [facility] Albumin 4.0 3.2 - 5.0 g/dL LAB CHEMISTRY METHOD 08/30/2024 9:25 AM [facility] Total Bilirubin 0.2 0.0 - 1.4 mg/dL LAB CHEMISTRY METHOD 08/30/2024 9:25 AM [facility] Blood Venous blood specimen / Unknown 08/29/2024 08/30/2024 9:03 AM EST us Mary Song MD LAB BLOOD ORDERABLES Final Result [facility] [address] [place] [address], documented in this encounter Visit Diagnoses Diagnosis Cellulitis, unspecified documented in this encounter Care Teams High School French Teacher Relationship Specialty Start Date End Date Vicenta Nielsen FNP [address] [place] [phone] PCP - General 05/26/24 documented as of this encounter
--- OUTSIDE RECORDS SUMMARY | 2025-08-15 18:24 | XMS_ITS | Encounter Summary ---
Author Organization [employer] Address [address] [place] [address] 7 [place] [address] Care Team Providers Care Bail Agent Name Role Phone Valery Berrios MD Primary Care Provider [phone] Vicenta Nielsen NP Primary Care Provider [phone] Reason for Visit * Reason Onset Date Comments medication 07/14/2023 Encounter Details Date Type Department Care Team ([facility] st Contact Info) Description 07/14/2023 Telephone [facility] [address] [place] [address] Valery Berrios MD [address] [place] [address] medication Social History Tobacco Use Types Packs/Day [...] see message below. Retrieved Endo note from [facility]. Per note, plan is to reinitiate metformin 1000mg bid. Could consider adding and SGLT 2 inhibitor in the future. Will increase lantus to 65units at possibly 70 units to keep point care in a.m <180 ... Will send note to scan for PCP to review. * Telephone Encounter - Ying Cox - 07/14/2023 11:20 AM EDT Tc from pt stating unemployment specialist is requesting pt switch from 55 to 65 units on insulin glargine (Lantus) 100 UNIT/ML injection. documented in this encounter Plan of Treatment Not on file documented as of this encounter Visit Diagnoses Not on filedocumented in this encounter Additional Health Concerns Assessment Noted Time PHQ-9 Depression Total Score: 0 10/20/19 23 2:41 PM EST documented as of this encounter Care Teams Bail Agent Relationship Specialty Start Date End Date Valery Berrios MD [address] [place] [address] PCP - General Internal Medicine 12/01/18 12/21/23 Vicenta Nielsen NP [address] [place] [address] PCP - General Family Medicine 12/22/23 [employer] 04/29/24 abigail mcneill Reimbursement RepresentativeHand Silvering Supervisor 10/18/24 documented as of this encounter
--- OUTSIDE RECORDS SUMMARY | 2025-08-15 18:24 | XMS_ITS | Encounter Summary ---
Author Organization [employer] Address [address] [place] [address] Street [address] [place] [address] Care Team Providers Care Housing Case Manager Name Role Phone Vicenta Nielsen NP Primary Care Provider [phone] Reason for Visit * Reason Onset Date Comments PT1 01/18/2025 Encounter Details Date Type Department Care Team ([facility] Contact Info) Description 01/18/2025 Telephone [facility] MEDICINE [address] [place], [place] [phone] Vicenta Nielsen NP [address] [place] [address] PT1 Social History Tobacco Use Types Packs/Day [...] Y/N: Yes Provider name or facility name: [address] [place] [address] Escort needed: Y/N: Yes door to door [...] documented as of this encounter Care Teams Housing Case Manager Relationship Specialty Start Date End Date Vicenta Nielsen NP [address] [place] [address] PCP - General Family Medicine 12/22/23 [employer] 04/29/24 abigail mcneill Product Applications EngineerInsurance Executive 10/18/24 documented as of this encounter
--- OUTSIDE RECORDS SUMMARY | 2025-08-15 18:24 | XMS_ITS | Encounter Summary ---
Author Organization [employer] Address [address] [facility] [address] [place] [address] Care Team Providers Care Lawnmower Repair Mechanic Name Role Phone Vicenta Nielsen NP Primary Care Provider [phone] Reason for Visit * Reason Onset Date Comments PT1 05/29/2024 Encounter Details Date Type Department Care Team ([facility] Contact Info) Description 05/29/2024 Telephone [facility] MEDICINE [address] [place], [place] [phone] Vicenta Nielsen NP [address] [place] [address] PT1 Social History Tobacco Use Types Packs/Day [...] PM EDT Tc from pt requesting for [address] [place] [address] PT1 to be modified for Yes escort and Door to Door supervisory historian . documented in this encounter Plan of Treatment Not on file documented as of this encounter Visit Diagnoses Not on filedocumented in this encounter Additional Health Concerns Assessment Noted Time PHQ-9 Depression Total Score: 5 01/04/20 24 10:57 AM EDT documented as of this encounter Care Teams Lawnmower Repair Mechanic Relationship Specialty Start Date End Date Vicenta Nielsen NP [address] [place] [address] PCP - General Family Medicine 12/22/23 [employer] 04/29/24 abigail mcneill Rough Rice TenderSampler Ovens 10/18/24 documented as of this encounter
--- OUTSIDE RECORDS SUMMARY | 2025-08-15 18:24 | XMS_ITS | Encounter Summary ---
Author Organization [employer] Address [address] [place] [address] 7 [place] [address] Care Team Providers Care Librarian School Name Role Phone Valery Berrios MD Primary Care Provider [phone] Vicenta Nielsen NP Primary Care Provider [phone] Reason for Visit * Reason Onset Date Comments pt1 03/03/2023 Encounter Details Date Type Department Care Team (Late st Contact Info) Description 03/03/2023 Telephone [facility] MEDICINE [address] [place] [address] Valery Berrios MD [address] [place] [address] pt1 Social History Tobacco Use Types Packs/Day [...] Date: every wednesday Time: 10 am address: [address] [place] [address] [place] [address] specialty: # visits: hay buckler: no Wheelchair: cane Date: Time: address: [address] [place] [address] specialty: # visits: hay buckler: no Wheelchair: cane documented in this encounter Plan of Treatment Not on file documented as of this encounter Visit Diagnoses Not on filedocumented in this encounter Additional Health Concerns Assessment Noted Time PHQ-9 Depression Total Score: 0 10/20/19 23 2:41 PM EST documented as of this encounter Care Teams Librarian School Relationship Specialty Start Date End Date Valery Berrios MD [address] [place] [address] PCP - General Internal Medicine 12/01/18 12/21/23 Vicenta Nielsen NP [address] [place] [address] PCP - General Family Medicine 12/22/23 [email or web address] 04/29/24 abigail mcneill Flame Annealing Machine OperatorRadio Talk Show Host 10/18/24 documented as of this encounter
--- OUTSIDE RECORDS SUMMARY | 2025-08-15 18:24 | XMS_ITS | Encounter Summary ---
Author Organization [facility] [place] [address] Care Team Providers Care Pulpwood Dealer Name Role Phone Vicenta Nielsen RAZ Primary Care Provider Encounter Details Date Type Department Care Team (Late st Contact Info) Description 08/21/[address] [facility] - Main Lab 299 [facility] [place] [address] Steven Naik MD [address] [place] [address] Cellulitis, unspecified Social History Tobacco Use Types [...] CBC auto differential (08/21/2024 12:00 AM EST) [facility] WBC 6.4 4.8 - 10.8 K/mcL LAB HEMETOLOGY METHOD 08/21/2024 8:22 PM [facility] RBC 3.90(L) 4.50 - 5.50 M/mcL LAB HEMETOLOGY METHOD 08/21/2024 8:22 PM [facility] Hemoglobin 10.3(L) 13.5 - 17.5 g/dL LAB HEMETOLOGY METHOD 08/21/2024 8:22 PM [facility] Hematocrit 32.4(L) 42.0 - 54.0 % LAB HEMETOLOGY METHOD 08/21/2024 8:22 PM [facility] MCV 83.7 79.0 - 98.0 FL LAB HEMETOLOGY METHOD 08/21/2024 8:22 PM [facility] MCH 26.6(L) 27.0 - 32.0 pcg LAB HEMETOLOGY METHOD 08/21/2024 8:22 PM [facility] MCHC 31.8(L) 32.0 - 37.0 g/dL LAB HEMETOLOGY METHOD 08/21/2024 8:22 PM [facility] RDW 14.9 11.0 - 15.0 % LAB HEMETOLOGY METHOD 08/21/2024 8:22 PM [facility] Platelets 208 130 - 400 K/mcL LAB HEMETOLOGY METHOD 08/21/2024 8:22 PM [facility] MPV 11.8(H) 7.0 - 11.0 FL LAB HEMETOLOGY METHOD 08/21/2024 8:22 PM [facility] NRBC 0.0 <1.0 % LAB HEMETOLOGY METHOD 08/21/2024 8:22 PM [facility] NRBC Absolute 0.00 <0.10 K/mcL LAB HEMETOLOGY METHOD 08/21/2024 8:22 PM [facility] Neutrophils Relative 66.3 % LAB HEMETOLOGY METHOD 08/21/2024 8:22 PM [facility] Lymphocytes Relative 21.1 % LAB HEMETOLOGY METHOD 08/21/2024 8:22 PM [facility] Monocytes Relative 9.8 % LAB HEMETOLOGY METHOD 08/21/2024 8:22 PM [facility] Eosinophils Relative 2.0 % LAB HEMETOLOGY METHOD 08/21/2024 8:22 PM [facility] Basophils Relative 0.5 % LAB HEMETOLOGY METHOD 08/21/2024 8:22 PM [facility] Immature Granulocytes Relative 0.3 % LAB HEMETOLOGY METHOD 08/21/2024 8:22 PM [facility] Neutrophils Absolute 4.24 1.50 - 7.00 K/mcL LAB HEMETOLOGY METHOD 08/21/2024 8:22 PM [facility] Lymphocytes Absolute 1.35 1.00 - 5.00 K/mcL LAB HEMETOLOGY METHOD 08/21/2024 8:22 PM [facility] Monocytes Absolute 0.63 0.20 - 1.00 K/mcL LAB HEMETOLOGY METHOD 08/21/2024 8:22 PM [facility] Eosinophils Absolute 0.13 0.00 - 0.50 K/mcL LAB HEMETOLOGY METHOD 08/21/2024 8:22 PM [facility] Basophils Absolute 0.03 0.00 - 0.20 K/mcL LAB HEMETOLOGY METHOD 08/21/2024 8:22 PM [facility] Immature Granulocytes Absolute 0.02 0.00 - 0.03 K/mcL LAB HEMETOLOGY METHOD 08/21/2024 8:22 PM EST [facility] Blood Venous blood specimen / Unknown 08/21/2024 08/21/2024 8:09 PM EST Steven Naik MD LAB BLOOD ORDERABLES Final Re sult Performing Organization Address City/[facility]/ZIP Co de Phone Number [facility] [address] [place] [address], [place] [phone] * Creatine kinase (08/21/2024 12:00 AM EST) Pathologist [facility] Total CK 54 22 - 269 unit/L LAB CHEMISTRY METHOD 08/21/2024 8:29 PM [facility] Blood Venous blood specimen / Unknown 08/21/2024 08/21/2024 8:09 PM EST Steven Naik MD LAB BLOOD ORDERABLES Final Re sult [facility] [address] [place] [address], [place] [phone] * (ABNORMAL) Comprehensive metabolic panel (08/21/2024 12:00 AM EST) Pathologist [facility] Sodium 138 133 - 145 mmol/L LAB CHEMISTRY METHOD 08/21/2024 8:29 PM [facility] Potassium 4.5 3.5 - 5.5 mmol/L LAB CHEMISTRY METHOD 08/21/2024 8:29 PM [facility] Chloride 105 96 - 110 mmol/L LAB CHEMISTRY METHOD 08/21/2024 8:29 PM [facility] CO2 28 21 - 32 mmol/L LAB CHEMISTRY METHOD 08/21/2024 8:29 PM [facility] Anion Gap 5 3 - 11 LAB CHEMISTRY METHOD 08/21/2024 8:29 PM [facility] Glucose 130(H) 70 - 100 mg/dL LAB CHEMISTRY METHOD 08/21/2024 8:29 PM [facility] BUN 28(H) 5 - 25 mg/dL LAB CHEMISTRY METHOD 08/21/2024 8:29 PM [facility] Creatinine 1.02 0.70 - 1.30 mg/dL LAB CHEMISTRY METHOD 08/21/2024 8:29 PM [facility] eGFR 85 >=60 mL/min/1. 73m2 LAB CHEMISTRY METHOD 08/21/2024 8:29 PM [facility] Comment:Calculation based on the Chronic Kidney Disease Epidemiology Collaboration (CKD-EPI) equation refit without adjustment for race. BUN/Creatinine Ratio 27.5 LAB CHEMISTRY METHOD 08/21/2024 8:29 PM [facility] Calcium 9.4 8.5 - 10.5 mg/dL LAB CHEMISTRY METHOD 08/21/2024 8:29 PM [facility] AST (SGOT) 15 10 - 42 unit/L LAB CHEMISTRY METHOD 08/21/2024 8:29 PM [facility] ALT (SGPT) 19 10 - 60 unit/L LAB CHEMISTRY METHOD 08/21/2024 8:29 PM [facility] Alkaline Phosphatase 90 42 - 121 unit/L LAB CHEMISTRY METHOD 08/21/2024 8:29 PM [facility] Total Protein 7.6 6.0 - 8.0 g/dL LAB CHEMISTRY METHOD 08/21/2024 8:29 PM [facility] Albumin 3.9 3.2 - 5.0 g/dL LAB CHEMISTRY METHOD 08/21/2024 8:29 PM [facility] Total Bilirubin 0.3 0.0 - 1.4 mg/dL LAB CHEMISTRY METHOD 08/21/2024 8:29 PM [facility] Blood Venous blood specimen / Unknown 08/21/2024 08/21/2024 8:09 PM EST us Stevencarlos Naik MD LAB BLOOD ORDERABLES Final Re sult [facility] ([facility]) [facility] [address] [place] [address], [place] [phone] documented in this encounter Visit Diagnoses Diagnosis Cellulitis, unspecified documented in this encounter Care Teams Pulpwood Dealer Relationship Specialty Start Date End Date Vicenta Nielsen FNP [address] [place] [phone] PCP - General 05/26/24 documented as of this encounter
--- OUTSIDE RECORDS SUMMARY | 2025-08-15 18:24 | XMS_ITS | Clinical Summary ---
Author Organization [address] Address [address] [place] [phone] Phone Care Team Providers Care Quill Machine Tender Name Role Phone Vicenta Nielsen RAZ Primary Care Provider [phone] Immunizations Immunization Administration Dates Next Due Pfizer SARS-CoV-2 COVID-19, [...] Health Maintenance Due Date Last Done Comments Colorectal Cancer Screening: Colonoscopy 1965 Diabetes: Annual Foot Exam 1975 Diabetes: Annual Retina Eye Exam 1975 Hepatitis A Vaccines (1 of 2 - Risk 2-dose series) 1984 RSV Immunization Adult Patients (1 - Risk 50-74 years 1-dose series) 2015 HIV Screening 11/02/2023 Hepatitis C Screening 11/02/2023 Social Influencers of Health Screening 11/02/2023 Depression Screening 10/04/2024 Diabetes: Annual Urine Albumin-Creatinine Ratio (uACR) 02/08/2025 COVID-19 Vaccine ( season) 2025 03/04/2021, 02/11/2021 Influenza Vaccine (#1) 2025 , 07/20/2022, 07/04/2019, Additional history exists Hepatitis B Vaccines (1 of 3 - Risk 3-dose series) 2025 Diabetes: Blood Sugar Control Test (HGBA1C) 10/12/2025 [...] mmol/L LAB CHEMISTRY METHOD 08/30/2024 9:25 AM [facility] Potassium 4.8 3.5 - 5.5 mmol/L LAB CHEMISTRY METHOD 08/30/2024 9:25 AM [facility] Chloride 105 96 - 110 mmol/L LAB CHEMISTRY METHOD 08/30/2024 9:25 AM [facility] CO2 27 21 - 32 mmol/L LAB CHEMISTRY METHOD 08/30/2024 9:25 AM [facility] Anion Gap 6 3 - 11 LAB CHEMISTRY METHOD 08/30/2024 9:25 AM [facility] Glucose 104(H) 70 - 100 mg/dL LAB CHEMISTRY METHOD 08/30/2024 9:25 AM [facility] BUN 26(H) 5 - 25 mg/dL LAB CHEMISTRY METHOD 08/30/2024 9:25 AM [facility] Creatinine 1.10 0.70 - 1.30 mg/dL LAB CHEMISTRY METHOD 08/30/2024 9:25 AM [facility] eGFR 77 >=60 mL/min/1. 73m2 LAB CHEMISTRY METHOD 08/30/2024 9:25 AM [facility] Comment:Calculation based on the Chronic Kidney Disease Epidemiology Collaboration (CKD-EPI) equation refit without adjustment for race. BUN/Creatinine Ratio 23.6 LAB CHEMISTRY METHOD 08/30/2024 9:25 AM [facility] Calcium 9.4 8.5 - 10.5 mg/dL LAB CHEMISTRY METHOD 08/30/2024 9:25 AM [facility] AST (SGOT) 16 10 - 42 unit/L LAB CHEMISTRY METHOD 08/30/2024 9:25 AM [facility] ALT (SGPT) 24 10 - 60 unit/L LAB CHEMISTRY METHOD 08/30/2024 9:25 AM [facility] Alkaline Phosphatase 91 42 - 121 unit/L LAB CHEMISTRY METHOD 08/30/2024 9:25 AM [facility] Total Protein 7.7 6.0 - 8.0 g/dL LAB CHEMISTRY METHOD 08/30/2024 9:25 AM [facility] Albumin 4.0 3.2 - 5.0 g/dL LAB CHEMISTRY METHOD 08/30/2024 9:25 AM [facility] Total Bilirubin 0.2 0.0 - 1.4 mg/dL LAB CHEMISTRY METHOD 08/30/2024 9:25 AM [facility] Blood Venous blood specimen / Unknown 08/29/2024 08/30/2024 9:03 AM EST Mary Song MD LAB BLOOD ORDERABLES Final Result [facility] [address] [place] [address], [place] [phone] from Last 3 Months or Most Recently Relevant to Health Maintenance Insurance [place]ICA[place] Advance Directives Documents on File Type Date Recorded Patient Publications Distribution Clerk Expl anation Health Care Decision (hx) 01/22/2023 [...] (hx) 01/22/2023 AD PURDY DIRECTIVE Care Teams Quill Machine Tender Relationship Specialty Start Date End Date Vicenta Nielsen FNP [address] [place] [phone] PCP - General 05/26/24
--- OUTSIDE RECORDS SUMMARY | 2025-08-15 18:24 | XMS_ITS | Encounter Summary ---
Author Organization [employer] Address [address] [place] [address] [facility] [place] [address] Care Team Providers Care Counter Clerk Name Role Phone Valery Berrios MD Primary Care Provider [phone] Vicenta Nielsen NP Primary Care Provider [phone] Reason for Visit * Reason Onset Date Comments PT1 11/18/2022 Encounter Details Date Type Department Care Team ([facility] st Contact Info) Description 11/18/2022 Telephone [facility] CHC MED & PEDS 505 [place] [address] Valery Berrios MD 505 [place] [address] PT1 Social History Tobacco Use Types Packs/Day [...] from pt requesting for a PT1 Location: [address] [place] [address] Specialty: All appts Time: n/a Date: n/a Senior Web Engineer: n/a Does require a cane. Pt states previous PT1 will on December 09, 2022 If any question please contact pt at [phone] documented in this encounter Plan of Treatment Not on file documented as of this encounter Visit Diagnoses Not on filedocumented in this encounter Additional Health Concerns Assessment Noted Time PHQ-9 Depression Total Score: 0 10/20/19 23 2:41 PM EST documented as of this encounter Care Teams Counter Clerk Relationship Specialty Start Date End Date Valery Berrios MD [address] [place] [address] PCP - General Internal Medicine 12/01/18 12/21/23 Vicenta Nielsen NP [address] [place] [address] PCP - General Family Medicine 12/22/23 [employer] 04/29/24 abigail mcneill Security GuardElectrifier Operator 10/18/24 documented as of this encounter
--- OUTSIDE RECORDS SUMMARY | 2025-08-15 18:24 | XMS_ITS | Encounter Summary ---
Author Organization [employer] Address [address] [place] [address] [place] [address] Care Team Providers Care Embroidery Patternmaker Name Role Phone Valery eBrrios MD Primary Care Provider [phone] Vicenta Nielsen NP Primary Care Provider [phone] Reason for Visit * Reason Onset Date Comments Forms/questionnaires 09/17/2022 Encounter Details Date Type Department Care Team ([facility] st Contact Info) Description 09/17/2022 Telephone [facility] CHC MED & PEDS [address] [place] [address] Valery Berrios MD 505 [place] [address] Forms/questionnaires Social History Tobacco Use Types Packs/Day [...] on filedocumented in this encounter Care Teams Embroidery Patternmaker Relationship Specialty Start Date End Date Valery Berrios MD [address] [place] [address] PCP - General Internal Medicine 12/01/18 12/21/23 Vicenta Nielsen NP [address] [place] [address] PCP - General Family Medicine 12/22/23 [email or web address] 04/29/24 abigail mcneill Bobbin WasherPit Crane Operator 10/18/24 documented as of this encounter
--- OUTSIDE RECORDS SUMMARY | 2025-08-15 18:24 | XMS_ITS | Encounter Summary ---
Author Organization [employer] Address [address] 7[address] [place] [address] Care Team Providers Care Construction Sales Manager Name Role Phone Vicenta Nielsen NP Primary Care Provider [phone] Reason for Visit * Reason Onset Date Comments Durable Medical Equipment 08/18/2024 Encounter Details Date Type Department Care Team ([facility] Contact Info) Description 08/18/2024 Telephone [facility] MEDICINE 230 [place], [place] [phone] Vicenta Nielsen NP [address] [place] [address] Durable Medical Equipment Social History Tobacco Use [...] leg and he feels insecure. Callback number [phone] documented in this encounter Plan of Treatment Not on file documented as of this encounter Visit Diagnoses Not on filedocumented in this encounter Additional Health Concerns Assessment Noted Time PHQ-9 Depression Total Score: 7 07/25/20 9:24 AM EDT documented as of this encounter Care Teams Construction Sales Manager Relationship Specialty Start Date End Date Vicenta Nielsen NP [address] [place] [address] PCP - General Family Medicine 12/22/23 [employer] 04/29/24 abigail mcneill Manufacturing TechnologistTomography Technologist 10/18/24 documented as of this encounter
--- OUTSIDE RECORDS SUMMARY | 2025-08-15 18:24 | XMS_ITS | Encounter Summary ---
Author Organization [employer] Address [address] [place] [address] 7 [place] [address] Care Team Providers Care Ornamental Bronze Worker Name Role Phone Valery Berrios MD Primary Care Provider [phone] Vicenta Nielsen NP Primary Care Provider [phone] Encounter Details Date Type Department Care Team ([facility] st Contact Info) Description 10/30/2022 Abstract [facility] CHC MED & PEDS 505 [place] [address] Valery Berrios MD 505 [place] [address] Social History Tobacco Use Types Packs/Day Years [...] documented as of this encounter Care Teams Ornamental Bronze Worker Relationship Specialty Start Date End Date Valery Berrios MD [address] [place] [address] PCP - General Internal Medicine 12/01/18 12/21/23 Vicenta Nielsen NP [address] [place] [address] PCP - General Family Medicine 12/22/23 [employer] 04/29/24 abigail mcneill Primary Special Education TeacherStaff Antisubmarine Officer 10/18/24 documented as of this encounter
--- OUTSIDE RECORDS SUMMARY | 2025-08-15 18:24 | XMS_ITS | Encounter Summary ---
Author Organization [facility] [address] Care Team Providers Care Machine Hamper Maker Name Role Phone Vicenta Nielesn RAZ Primary Care Provider [phone] Encounter Details Date Type Department Care Team (Late st Contact Info) Description 08/07/2024 Lab Requisition [facility] Main Lab [address] [facility] [place] [address] Mary Song MD [address] [address] Obesity, unspecified Social History Tobacco Use Types [...] CBC auto differential (08/07/2024 12:00 AM EST) [facility] WBC 5.4 4.8 - 10.8 K/mcL [...] BLOOD ORDERABLES Final Result Performing Organization Address City/[facility]/ZIP Co de Phone Number [facility] [address] [place] [address], [place] [phone] * Creatine kinase (08/07/2024 12:00 AM EST) Pathologist [facility] Total CK 48 22 - 269 unit/L LAB CHEMISTRY METHOD 08/07/2024 7:36 PM [facility] Blood Venous blood specimen / Unknown Venipuncture / Unknown 08/07/2024 08/07/2024 7:01 PM EST Mary Song MD LAB BLOOD ORDERABLES Final Result Performing Organization Address [facility]/ZIP Co de Phone Number [facility] [address] [place] [address], [place] [phone] * (ABNORMAL) Comprehensive metabolic panel (08/07/2024 12:00 AM EST) [facility] Sodium 135 133 - 145 mmol/L LAB CHEMISTRY METHOD 08/30/2024 9:16 AM [facility] Potassium 4.6 3.5 - 5.5 mmol/L LAB CHEMISTRY METHOD 08/30/2024 9:16 AM [facility] Chloride 101 96 - 110 mmol/L LAB CHEMISTRY METHOD 08/30/2024 9:16 AM [facility] CO2 28 21 - 32 mmol/L LAB CHEMISTRY METHOD 08/30/2024 9:16 AM [facility] Anion Gap 6 [...] AM [facility] Comment:Calculation based on the Chronic [...] ORDERABLES Edite d Result - Final [facility] [address] [place] [address], documented in this encounter Visit Diagnoses Diagnosis Obesity, unspecified documented in this encounter Care Teams Machine Hamper Maker Relationship Specialty Start Date End Date Vicenta Nielsen FNP [address] [place] [address] PCP - General 05/26/24 documented as of this encounter
--- OUTSIDE RECORDS SUMMARY | 2025-08-15 18:24 | XMS_ITS | Encounter Summary ---
Author Organization [employer] Address [address] 7t [place] [address] Care Team Providers Care Staff Electrical Engineer Name Role Phone Vicenta Nielsen INTERLOCKER Primary Care Provider [phone] Reason for Visit * Reason Onset Date Comments Nurse Triage 08/01/2024 Encounter Details Date Type Department Care Team ([facility] Contact Info) Description 08/01/2024 Telephone [facility] MEDICINE 230 [place], [place] [phone] Vicenta Nielsen NP 230 [place] [address] Nurse Triage Social History Tobacco Use Types [...] amputation. Pt offered to seek care at [facility]. Pt declines states will have [facility] call tomorrow with update on what area looks like based on their assessment. Reviewed home care advise, ER precautions and reasons to call back. Reviewed [facility] operating hours and that wait times vary. [...] documented as of this encounter Care Teams Staff Electrical Engineer Relationship Specialty Start Date End Date Vicenta Nielsen NP [address] [place] [address] PCP - General Family Medicine 12/22/23 [employer] [facility] 04/29/24 abigail mcneill Class 1 Owner OperatorComputer Help Desk Specialist 10/18/24 documented as of this encounter
--- OUTSIDE RECORDS SUMMARY | 2025-08-15 18:24 | XMS_ITS | Encounter Summary ---
Author Organization [employer] Address [address] [facility] 7t [place] [address] Care Team Providers Care Wheel Of Fortune Dealer Name Role Phone Valery Berrios MD Primary Care Provider [phone] Vicenta Nielsen NP Primary Care Provider [phone] Reason for Visit * Reason Onset Date Comments Call Back Request 11/17/2023 Encounter Details Date Type Department Care Team (Late st Contact Info) Description 11/17/2023 Telephone [facility] MEDICINE 230 [place] [address] Valery Berrios MD 505 [place], [place] [phone] Call Back Request Social History Tobacco Use [...] on his potassium and iron. According to [facility] pharmacy, they do not have this on file. Dr. Berrios, is pt to be taking these 2 medications? If so he is in need of both sent to [facility] pharm. Pt also states he stopped taking the amlodipine because it made his legs swell, please DC in chart, he has been having high BP readings and will need something in replace of the amlodipine. Pt agrees to appt with PCP 11.23.23. Pt also states he moved to [place] and would like to transfer his care there. TP request sent on 10.14.23. Will wait for pt appt 11.23.23 to see what current PCP requests for f/u and go from there. * Telephone Encounter - Elmer Sykes - 11/17/2023 3:31 PM EST Tc from pt requesting call back from nurses to go over medication. Please contact pt at [phone]. documented in this encounter Plan of Treatment Not on file documented as of this encounter Visit Diagnoses Not on filedocumented in this encounter Additional Health Concerns Assessment Noted Time PHQ-9 Depression Total Score: 0 10/20/19 23 2:41 PM EST documented as of this encounter Care Teams Wheel Of Fortune Dealer Relationship Specialty Start Date End Date Valery Berrios MD [address] [place] [address] PCP - General Internal Medicine 12/01/18 12/21/23 Vicenta Nielsen NP [address] [place] [address] PCP - General Family Medicine 12/22/23 [employer] 04/29/24 abigail mcneill Tooling InspectorAutomobile Mechanic 10/18/24 documented as of this encounter
--- OUTSIDE RECORDS SUMMARY | 2025-08-15 18:24 | XMS_ITS | Encounter Summary ---
Author Organization [employer] Address [address] [place] [address] 7t [place] [address] Care Team Providers Care Esl Tutor Name Role Phone Valery Berrios MD Primary Care Provider [phone] Vicenta Nielsen NP Primary Care Provider [phone] Encounter Details Date Type Department Care Team ([facility] st Contact Info) Description 04/21/[address] [facility] CHC MED & PEDS [address] [place] [address] Valery Berrios MD [address] [place] [address] Other iron deficiency anemia Social History Tobacco [...] documented as of this encounter Care Teams Esl Tutor Relationship Specialty Start Date End Date Valery Berrios MD [address] [place] [address] PCP - General Internal Medicine 12/01/18 12/21/23 Vicenta Nielsen NP [address] [place] [address] PCP - General Family Medicine 12/22/23 [employer] 04/29/24 abigail mcneill Pointer Machine OperatorKeno Writer / Runner 10/18/24 documented as of this encounter
--- OUTSIDE RECORDS SUMMARY | 2025-08-15 18:24 | XMS_ITS | Encounter Summary ---
Author Organization [employer] Address [address] 7t [place] [address] Care Team Providers Care Butcherette Name Role Phone Vicenta Nielsen NP Primary Care Provider [phone] Reason for Visit * Reason Onset Date Comments Lab Orders 10/31/2024 Encounter Details Date Type Department Care Team ([facility] Contact Info) Description 10/31/2024 Telephone [facility] MEDICINE 230 [place], [place] [phone] Vicenta Nielsen NP 230 [place] [address] Lab Orders Social History Tobacco Use Types [...] [facility]. Pt also c/o left sided internal [...] would like to have labs done at [facility] when he goes [...] documented as of this encounter Care Teams Butcherette Relationship Specialty Start Date End Date Vicenta Nielsen NP [address] [place] [address] PCP - General Family Medicine 12/22/23 [employer] [facility] [employer] 04/29/24 abigail mcneill Research InternHome Health Rn 10/18/24 documented as of this encounter
--- OUTSIDE RECORDS SUMMARY | 2025-08-15 18:24 | XMS_ITS | Encounter Summary ---
Author Organization [employer] Address [address] [place] [address] Street 7t [place] [address] Care Team Providers Care Mailroom Coordinator Name Role Phone Vicenta Nielsen NP Primary Care Provider [phone] Reason for Visit * Reason Onset Date Comments PT-1 12/01/2024 Encounter Details Date Type Department Care Team ([facility] st Contact Info) Description 12/01/2024 Telephone [facility]ICINE 230 [place], [place] [phone] Vicenta Nielsen NP 230 [place] [address] PT-1 Social History Tobacco Use Types Packs/Day [...] Status of prior message. Contact pt at [phone] * Telephone Encounter - Jacobo Ross - 12/01/2024 11:59 AM EST Patient calling requesting PT1 Home Address verified: Y/N: Yes Provider name or facility name: [facility] [address] [place] [address] Escort needed: Y/N: Yes Do you have [...] documented as of this encounter Care Teams Mailroom Coordinator Relationship Specialty Start Date End Date Vicenta Nielsen NP [address] [place] [address] PCP - General Family Medicine 12/22/23 [employer] 04/29/24 abigail mcneill Nude ModelAdvanced Manager 10/18/24 documented as of this encounter
--- OUTSIDE RECORDS SUMMARY | 2025-08-15 18:24 | XMS_ITS | Encounter Summary ---
Author Organization [employer] Address [address] [place] [address] [facility] [place] [address] Care Team Providers Care Management Aide Name Role Phone Valery Berrios MD Primary Care Provider [phone] Vicenta Nielsen NP Primary Care Provider [phone] Reason for Visit * Reason Onset Date Comments Ultrasound Status 11/18/2022 Encounter Details Date Type Department Care Team ([facility] st Contact Info) Description 11/18/2022 Telephone [facility] MED & PEDS 505 [place] [address] Valery Berrios MD 505 [place] [address] Ultrasound Status Social History Tobacco Use Types [...] good effect. Pt informed this RN checked [facility] and there is no dx of his complain. Pt advised letter cannot be written without appropriate dx and that pt can call [facility] back with the numberfor the urologist so that PCP's office can f/u with them to request notes and update dx. Pt also gave this RN the number to the methadone clinic to f/u. RN called [phone], phone recording statesnumber you have dialed is not in service. Pt agreed to call [facility] back with the number for [...] understand him. States PCP may not understand Belgian or that he may just be being [...] any question please contact the clinic at [phone] [facility]. Pt is also requesting for his Coordinator to give him a call back. If any questions please contact pt at [phone] documented in this encounter Plan of Treatment Not on file documented as of this encounter Visit Diagnoses Not on filedocumented in this encounter Additional Health Concerns Assessment Noted Time PHQ-9 Depression Total Score: 0 10/20/19 23 2:41 PM EST documented as of this encounter Care Teams Management Aide Relationship Specialty Start Date End Date Valery Berrios MD [address] [place] [address] PCP - General Internal Medicine 12/01/18 12/21/23 Vicenta Nielsen NP [address] [place] [address] PCP - General Family Medicine 12/22/23 [employer] 04/29/24 abigail mcneill Silk Screen RepairerDiesel Truck Crane Operator 10/18/24 documented as of this encounter
--- OUTSIDE RECORDS SUMMARY | 2025-08-15 18:24 | XMS_ITS | Clinical Summary ---
Author Organization [facility] Address [address] [place], [place] [phone] Phone Care Team Providers Care Plumber'S Helper Name Role Phone Pcp, Unknown Primary Care [...] ACO C3 ACO C3 ACO C3 ACO [facility] C3 ACO Care Teams Plumber'S Helper Relationship Specialty Start Date End Date Pcp, Unknown PCP - General 03/31/24 Additional Source Comments The information contained in this document represents components of the legal health record. It is not the complete legal health record.[facility]
--- OUTSIDE RECORDS SUMMARY | 2025-08-15 18:24 | XMS_ITS | Encounter Summary ---
Author Organization [employer] Address [address] [facility] 7 [place] [address] Care Team Providers Care Local Flatbed Driver Name Role Phone Vicenta Nielsen NP Primary Care Provider [phone] Reason for Visit * Reason Comments Med Refill Encounter Details Date Type Department Care Team ([facility] Contact Info) Description 02/04/2024 Refill [facility] CHC MED & PEDS [address] [place] [address] Valery Berrios MD 505 [place] [address] Type 2 diabetes mellitus without complication, with long-term current use of insulin ([facility]) Social History Tobacco Use Types Packs/Day Years [...] complication, with long-term current use of insulin (HCC) documented in this encounter Additional Health Concerns Assessment Noted Time PHQ-9 Depression Total Score: 5 01/04/20 10:57 AM EDT documented as of this encounter Care Teams Local Flatbed Driver Relationship Specialty Start Date End Date Vicenta Nielsen NP [address] [place] [address] PCP - General Family Medicine 12/22/23 [employer] 04/29/24 abigail mcneill Bods DeveloperHospital Pharmacy Technician 10/18/24 documented as of this encounter
[2025-08-16 04:16] LABS: HIV Num 1 0.06 S/CO (0.00-0.99); ~HepC Num1 10.92 S/CO (0.00-0.79); ~Hepatitis C Antibody Reactive (Nonreactive)
[2025-08-20 13:47] LABS: HCV Log PCR <1.18 NOT DETECTED Log IU/mL (NOT DETECTED); HepC Viral Load <15 NOT DETECTED IU/mL (NOT DETECTED)
== END 2025-08-15 15:05 | disposition home or self-care (01) ==
LOC: HO.LAB 15:04
PROVIDERS: PCP Nurse Practitioner Family; Visit Provider Nurse Practitioner Family
DX: Z11.4 Encounter for screening for human immunodeficiency virus [HIV] (principal); Z11.59 Encounter for screening for other viral diseases; Z20.6 Contact with and (suspected) exposure to human immunodeficiency virus [HIV]; E11.22 Type 2 diabetes mellitus with diabetic chronic kidney disease; N18.30 Chronic kidney disease, stage 3 unspecified; D63.1 Anemia in chronic kidney disease; Z78.9 Other specified health status; Z86.19 Personal history of other infectious and parasitic diseases
CPT/HCPCS: 36415; 80053; 80061; 83036; 84153; 85025; 86803; 87389; 87522